=== PATIENT | male | born 1970 | race Caucasian/White ===

== ENCOUNTER 2019-10-19 13:31 | Outpatient (CLI) | payer BC, OTHER, SELFPAY ==
[2019-10-19 14:46] LABS: Alanine Aminotransferase 54 U/L (16-63); Albumin Level 3.4 g/dL (3.4-5.0); Alkaline Phosphatase 99 U/L (46-116); Aspartate Amino Transferase 23 U/L (15-37); Bilirubin,Total 0.3 mg/dL (0.00-1.00); Blood Urea Nitrogen 18 mg/dL (7-18); Calcium 8.7 mg/dL (8.5-10.1); Carbon Dioxide 27 mmol/L (21-32); Chloride 106 mmol/L (98-108); Estimated Glomerular Filt Rate > 60; Glucose 107 mg/dL (70-99); Osmolality Calculated 297 mOsm/kg (285-295); Sodium 143 mmol/L (136-145); Total Protein 6.6 g/dL (6.4-8.2)
== END 2019-10-19 13:32 | disposition home or self-care (01) ==
PROVIDERS: PCP Internal Medicine; Visit Provider Internal Medicine
DX: R94.5 Abnormal results of liver function studies (principal)
CPT/HCPCS: 36415; 80053

== ENCOUNTER 2020-01-26 13:05 | Outpatient (CLI) | payer BC, OTHER, SELFPAY ==
[2020-01-26 13:22] LABS: Basophils Absolute Auto 0.04 K/mm3 (0.00-0.10); Basophils Percent Auto 0.6 % (0.0-1.0); Eosinophils Percent Auto 1.5 % (1.0-6.0); Hematocrit 42.9 % (40.0-54.0); Hemoglobin 14.8 g/dL (14.0-18.0); Immature Granulocyte Absolute 0.02 K/mm3 (0.00-0.00); Immature Granulocyte Percent A 0.3 % (0.0-0.0); Lymphocytes Absolute Auto 1.73 K/mm3 (1.10-4.50); Lymphocytes Percent Auto 25.3 % (18.0-42.0); Mean Corpuscular HGB Conc 34.5 g/dL (32.0-36.0); Mean Corpuscular Hemoglobin 29.6 pg (27.0-31.0); Mean Corpuscular Volume 85.8 fL (78.0-102.0); Mean Platelet Volume 9.4 fl (8.7-11.0); Monocytes Absolute Auto 0.44 K/mm3 (0.10-0.90); Monocytes Percent Auto 6.4 % (2.0-11.0); Neutrophils Absolute Auto 4.5 K/mm3 (1.7-7.2); Neutrophils Percent Auto 65.9 % (50.0-70.0); Platelet Count Result 301 K/mm3 (150-420); Red Cell Distribution Width 13.4 % (11.6-14.4); White Blood Count 6.8 K/mm3 (4.8-10.8)
[2020-01-26 14:15] LABS: Alanine Aminotransferase 70 U/L (16-63); Albumin Level 3.5 g/dL (3.4-5.0); Alkaline Phosphatase 87 U/L (46-116); Anion Gap 11.7 mmol/L (7-16); Aspartate Amino Transferase 32 U/L (15-37); Bilirubin,Total 0.4 mg/dL (0.00-1.00); Blood Urea Nitrogen 18 mg/dL (7-18); CRP < 0.2 mg/dL (0.0-0.9); Carbon Dioxide 29 mmol/L (21-32); Chloride 103 mmol/L (98-108); Estimated Glomerular Filt Rate > 60; Glucose 138 mg/dL (70-99); Osmolality Calculated 293 mOsm/kg (285-295); Potassium 3.7 mmol/L (3.5-5.1); Sodium 140 mmol/L (136-145); Total Protein 6.6 g/dL (6.4-8.2)
== END 2020-01-26 13:06 | disposition home or self-care (01) ==
PROVIDERS: PCP Internal Medicine
DX: K50.819 Crohn's disease of both small and large intestine with unspecified complications (principal)
CPT/HCPCS: 36415; 80053; 85025; 86140

== ENCOUNTER 2020-03-04 11:28 | Outpatient (CLI) | payer BC, SELFPAY ==
[2020-03-04 15:22] LABS: Alanine Aminotransferase 56 U/L (16-63); Albumin Level 3.5 g/dL (3.4-5.0); Alkaline Phosphatase 85 U/L (46-116); Anion Gap 11.9 mmol/L (7-16); Aspartate Amino Transferase 27 U/L (15-37); Bilirubin Direct 0.1 mg/dL (0-0.2); Bilirubin,Total 0.4 mg/dL (0.00-1.00); Blood Urea Nitrogen 18 mg/dL (7-18); Carbon Dioxide 28 mmol/L (21-32); Chloride 103 mmol/L (98-108); Estimated Glomerular Filt Rate > 60; Glucose 105 mg/dL (70-99); Osmolality Calculated 289 mOsm/kg (285-295); Potassium 3.9 mmol/L (3.5-5.1); Sodium 139 mmol/L (136-145); Total Protein 6.9 g/dL (6.4-8.2); Vitamin B12 1269 pg/mL (193-986)
[2020-03-08 21:30] LABS: NIL 0.01 IU/mL; Quantiferon TB Plus, 1T NEGATIVE (NEGATIVE)
[2020-03-09 03:24] LABS: Hepatitis B Core Ab Total Nonreactive (Nonreactive)
[2020-03-09 04:01] LABS: Hepatitis B Surface Antibody Nonreactive (Nonreactive); Hepatitis B Surface Antigen Nonreactive (Nonreactive)
[2020-03-09 20:27] LABS: Vitamin D 25 Hydroxy 23 ng/mL (30-100)
== END 2020-03-04 11:29 | disposition home or self-care (01) ==
LOC: CHSLAB 11:31
PROVIDERS: PCP Internal Medicine; Visit Provider Internal Medicine Gastroenterology
DX: K50.819 Crohn's disease of both small and large intestine with unspecified complications (principal)
CPT/HCPCS: 36415; 80048; 80076; 82306; 82607; 86480; 86704; 86706

== ENCOUNTER 2020-03-09 12:40 | Outpatient (CLI) | payer BC, OTHER, SELFPAY ==
[2020-03-18 14:28] LABS: Calprotectin, Stool 22 mcg/g
== END 2020-03-09 12:41 | disposition home or self-care (01) ==
LOC: CHSLAB 12:43
PROVIDERS: PCP Internal Medicine; Visit Provider Internal Medicine Gastroenterology
DX: K50.819 Crohn's disease of both small and large intestine with unspecified complications (principal)
CPT/HCPCS: 83993

== ENCOUNTER 2020-03-16 13:57 | Outpatient (CLI) | payer BC, OTHER, SELFPAY ==
[2020-03-16 14:45] LABS: Anion Gap 13.8 mmol/L (7-16); Blood Urea Nitrogen 13 mg/dL (7-18); Calcium 8.5 mg/dL (8.5-10.1); Carbon Dioxide 25 mmol/L (21-32); Chloride 105 mmol/L (98-108); Estimated Glomerular Filt Rate > 60; Glucose 116 mg/dL (70-99); Osmolality Calculated 291 mOsm/kg (285-295); Potassium 3.8 mmol/L (3.5-5.1); Sodium 140 mmol/L (136-145)
== END 2020-03-16 13:58 | disposition home or self-care (01) ==
LOC: CHSLAB 14:00
PROVIDERS: PCP Internal Medicine
DX: N20.0 Calculus of kidney (principal)
CPT/HCPCS: 36415; 80048

== ENCOUNTER 2020-03-31 17:35 | Outpatient (CLI) | payer BC, OTHER, SELFPAY ==
[2020-03-31 18:46] LABS: Alanine Aminotransferase 61 U/L (16-63); Albumin Level 3.6 g/dL (3.4-5.0); Alkaline Phosphatase 97 U/L (46-116); Aspartate Amino Transferase 32 U/L (15-37); Bilirubin Direct 0.1 mg/dL (0-0.2); Bilirubin,Total 0.5 mg/dL (0.00-1.00); Total Protein 6.9 g/dL (6.4-8.2)
== END 2020-03-31 17:36 | disposition home or self-care (01) ==
PROVIDERS: PCP Internal Medicine; Visit Provider Internal Medicine Gastroenterology
DX: K50.813 Crohn's disease of both small and large intestine with fistula (principal); R74.0 Nonspecific elevation of levels of transaminase and lactic acid dehydrogenase [LDH]
CPT/HCPCS: 36415; 80076; 81335

== ENCOUNTER 2020-04-06 11:57 | Outpatient (CLI) | payer BC, OTHER, SELFPAY | END 2020-04-06 11:58 | disposition home or self-care (01) | PROVIDERS: PCP Internal Medicine | DX: N20.0 Calculus of kidney (principal); N13.30 Unspecified hydronephrosis | CPT/HCPCS: 87086 ==

== ENCOUNTER 2020-04-28 10:32 | Outpatient (CLI) | payer BC, OTHER, SELFPAY ==
--- NOTE | ~2020-04-28 | XR_ITS ---
EXAMINATION: XR chest 2V 04/28/2020 10:57 INDICATION: Fever PROCEDURE: 2 view chest COMPARISON: 11/11/2017 FINDINGS: The lungs are clear. The cardiomediastinal silhouette is within normal limits. There are no pleural effusions. There is no pneumothorax suspected. IMPRESSION: 1: NO ACUTE CARDIOPULMONARY DISEASE. Reviewed, dictated and finalized at location A.
== END 2020-04-28 10:33 | disposition home or self-care (01) ==
PROVIDERS: PCP Internal Medicine
DX: R50.9 Fever, unspecified (principal)
CPT/HCPCS: 71046; 87086

== ENCOUNTER 2020-05-06 07:41 | Outpatient (CLI) | payer BC, OTHER, SELFPAY ==
[2020-05-06 07:59] VITALS: BP 128/70; PULSE 72; RESP 14; TEMP 36.6; O2SAT 97
[2020-05-06 08:51] VITALS: BP 119/68; PULSE 88; RESP 14; TEMP 36.6; O2SAT 97
[2020-05-06 09:08] VITALS: BP 118/67; PULSE 80; RESP 14; TEMP 36.6
[2020-05-06 09:26] VITALS: BP 117/68; PULSE 78; RESP 14; O2SAT 97
[2020-05-06 09:58] VITALS: BP 114/69; PULSE 78; RESP 14; TEMP 36.6; O2SAT 99
--- NOTE | 2020-05-06 10:07 | PC.NURSE ---
0800 Patient here for Stelara IV infusion. Patient first time with this medication. Teaching given on drug etc. All concerns answered. Stelara infusion administered (SEE MAR). Tolerated very well. Safe exit of hospital.
== END 2020-05-06 07:42 | disposition home or self-care (01) ==
LOC: CHSTREATRM 07:44
PROVIDERS: PCP Internal Medicine; Visit Provider Internal Medicine Gastroenterology
DX: K50.818 Crohn's disease of both small and large intestine with other complication (principal)
CPT/HCPCS: 96365; 96366; J3358; J7050

== ENCOUNTER 2020-06-29 13:13 | Outpatient (CLI) | payer BC, OTHER, SELFPAY ==
[2020-06-29 13:29] LABS: Basophils Absolute Auto 0.03 K/mm3 (0.00-0.10); Basophils Percent Auto 0.6 % (0.0-1.0); Eosinophils Absolute Auto 0.08 K/mm3 (0.02-0.50); Eosinophils Percent Auto 1.7 % (1.0-6.0); Hematocrit 42.4 % (40.0-54.0); Hemoglobin 13.8 g/dL (14.0-18.0); Immature Granulocyte Absolute 0.01 K/mm3 (0.00-0.00); Immature Granulocyte Percent A 0.2 % (0.0-0.0); Lymphocytes Absolute Auto 1.41 K/mm3 (1.10-4.50); Lymphocytes Percent Auto 29.5 % (18.0-42.0); Mean Corpuscular HGB Conc 32.5 g/dL (32.0-36.0); Mean Corpuscular Hemoglobin 29.1 pg (27.0-31.0); Mean Corpuscular Volume 89.3 fL (78.0-102.0); Mean Platelet Volume 9.3 fl (8.7-11.0); Monocytes Absolute Auto 0.35 K/mm3 (0.10-0.90); Monocytes Percent Auto 7.3 % (2.0-11.0); Neutrophils Absolute Auto 2.9 K/mm3 (1.7-7.2); Neutrophils Percent Auto 60.7 % (50.0-70.0); Platelet Count Result 333 K/mm3 (150-420); Red Blood Count 4.75 M/mm3 (4.70-6.10); Red Cell Distribution Width 14.1 % (11.6-14.4); White Blood Count 4.8 K/mm3 (4.8-10.8)
[2020-06-29 14:04] LABS: Alanine Aminotransferase 74 U/L (16-63); Albumin Level 3.5 g/dL (3.4-5.0); Alkaline Phosphatase 109 U/L (46-116); Anion Gap 8 mmol/L (8-16); Aspartate Amino Transferase 32 U/L (15-37); Bilirubin,Total 0.3 mg/dL (0.00-1.00); Blood Urea Nitrogen 17 mg/dL (7-18); Carbon Dioxide 28 mmol/L (21-32); Chloride 107 mmol/L (98-108); Estimated Glomerular Filt Rate 58; Glucose 92 mg/dL (70-99); Osmolality Calculated 297 mOsm/kg (285-295); Potassium 4.4 mmol/L (3.5-5.1); Sodium 143 mmol/L (136-145); Total Protein 6.6 g/dL (6.4-8.2)
[2020-06-29 14:07] LABS: CRP < 0.2 mg/dL (0.0-0.9)
[2020-07-02 12:57] LABS: Vitamin D 25 Hydroxy 23 ng/mL (30-100)
== END 2020-06-29 13:14 | disposition home or self-care (01) ==
LOC: CHSLAB 13:16
PROVIDERS: PCP Internal Medicine; Visit Provider Internal Medicine Gastroenterology
DX: K50.813 Crohn's disease of both small and large intestine with fistula (principal); Z79.899 Other long term (current) drug therapy
CPT/HCPCS: 36415; 80053; 82306; 85025; 86140

== ENCOUNTER 2020-10-14 11:18 | Outpatient (CLI) | payer BC, OTHER, SELFPAY | END 2020-10-14 11:19 | disposition home or self-care (01) | LOC: CHSLAB 11:21 | PROVIDERS: PCP Internal Medicine; Visit Provider Internal Medicine Gastroenterology | DX: K50.813 Crohn's disease of both small and large intestine with fistula (principal); Z79.899 Other long term (current) drug therapy | CPT/HCPCS: 36415 ==

== ENCOUNTER 2021-04-22 11:11 | Outpatient (CLI) | payer BC, OTHER, SELFPAY ==
[2021-04-22 11:24] LABS: Basophils Absolute Auto 0.04 K/mm3 (0.00-0.10); Basophils Percent Auto 0.8 % (0.0-1.0); Eosinophils Absolute Auto 0.06 K/mm3 (0.02-0.50); Eosinophils Percent Auto 1.2 % (1.0-6.0); Hematocrit 43.2 % (40.0-54.0); Hemoglobin 14.8 g/dL (14.0-18.0); Immature Granulocyte Absolute 0.01 K/mm3 (0.00-0.00); Immature Granulocyte Percent A 0.2 % (0.0-0.0); Lymphocytes Absolute Auto 1.44 K/mm3 (1.10-4.50); Lymphocytes Percent Auto 28.1 % (18.0-42.0); Mean Corpuscular HGB Conc 34.3 g/dL (32.0-36.0); Mean Corpuscular Hemoglobin 30.1 pg (27.0-31.0); Mean Corpuscular Volume 87.8 fL (78.0-102.0); Mean Platelet Volume 9.1 fl (8.7-11.0); Monocytes Absolute Auto 0.41 K/mm3 (0.10-0.90); Neutrophils Absolute Auto 3.2 K/mm3 (1.7-7.2); Neutrophils Percent Auto 61.7 % (50.0-70.0); Platelet Count Result 305 K/mm3 (150-420); Red Blood Count 4.92 M/mm3 (4.70-6.10); Red Cell Distribution Width 13.1 % (11.6-14.4); White Blood Count 5.1 K/mm3 (4.8-10.8)
[2021-04-22 12:04] LABS: Alanine Aminotransferase 61 U/L (16-63); Albumin Level 3.7 g/dL (3.4-5.0); Alkaline Phosphatase 88 U/L (46-116); Anion Gap 10 mmol/L (8-16); Aspartate Amino Transferase 25 U/L (15-37); Bilirubin,Total 0.5 mg/dL (0.00-1.00); Blood Urea Nitrogen 14 mg/dL (7-18); Carbon Dioxide 27 mmol/L (21-32); Chloride 105 mmol/L (98-108); Estimated Glomerular Filt Rate > 60; Glucose 137 mg/dL (70-99); Osmolality Calculated 296 mOsm/kg (285-295); Sodium 142 mmol/L (136-145); Total Protein 6.9 g/dL (6.4-8.2)
[2021-04-22 12:06] LABS: CRP < 0.2 mg/dL (0.0-0.9)
[2021-04-26 21:52] LABS: Vitamin D 25 Hydroxy 35 ng/mL (30-100)
== END 2021-04-22 11:12 | disposition home or self-care (01) ==
LOC: CHSLAB 11:13
PROVIDERS: PCP Internal Medicine; Visit Provider Internal Medicine Gastroenterology
DX: K50.819 Crohn's disease of both small and large intestine with unspecified complications (principal); Z79.899 Other long term (current) drug therapy; E55.9 Vitamin D deficiency, unspecified
CPT/HCPCS: 36415; 80053; 82306; 85025; 86140

== ENCOUNTER 2021-08-05 12:52 | Outpatient (CLI) | payer BC, OTHER, SELFPAY ==
[2021-08-05 13:09] LABS: Basophils Absolute Auto 0.04 K/mm3 (0.00-0.10); Basophils Percent Auto 0.6 % (0.0-1.0); Eosinophils Absolute Auto 0.07 K/mm3 (0.02-0.50); Hematocrit 41.4 % (40.0-54.0); Hemoglobin 14.3 g/dL (14.0-18.0); Immature Granulocyte Absolute 0.01 K/mm3 (0.00-0.00); Immature Granulocyte Percent A 0.1 % (0.0-0.0); Lymphocytes Absolute Auto 1.58 K/mm3 (1.10-4.50); Lymphocytes Percent Auto 22.9 % (18.0-42.0); Mean Corpuscular HGB Conc 34.5 g/dL (32.0-36.0); Mean Platelet Volume 9.3 fl (8.7-11.0); Monocytes Absolute Auto 0.53 K/mm3 (0.10-0.90); Monocytes Percent Auto 7.7 % (2.0-11.0); Neutrophils Absolute Auto 4.7 K/mm3 (1.7-7.2); Neutrophils Percent Auto 67.7 % (50.0-70.0); Platelet Count Result 309 K/mm3 (150-420); Red Blood Count 4.76 M/mm3 (4.70-6.10); Red Cell Distribution Width 12.7 % (11.6-14.4); White Blood Count 6.9 K/mm3 (4.8-10.8)
[2021-08-05 13:50] LABS: Alanine Aminotransferase 56 U/L (16-63); Albumin Level 3.6 g/dL (3.4-5.0); Alkaline Phosphatase 85 U/L (46-116); Anion Gap 9 mmol/L (8-16); Aspartate Amino Transferase 21 U/L (15-37); Bilirubin,Total 0.3 mg/dL (0.00-1.00); Blood Urea Nitrogen 14 mg/dL (7-18); Carbon Dioxide 29 mmol/L (21-32); Chloride 106 mmol/L (98-108); Estimated Glomerular Filt Rate 56; Glucose 97 mg/dL (70-99); Osmolality Calculated 298 mOsm/kg (285-295); Potassium 4.4 mmol/L (3.5-5.1); Sodium 144 mmol/L (136-145); Total Protein 6.6 g/dL (6.4-8.2)
[2021-08-05 14:02] LABS: CRP < 0.5 mg/dL (0.0-0.9)
[2021-08-07 10:52] LABS: Cholesterol 160 mg/dL (0-200); HDL Direct 50 mg/dL (40-60); LDL Cholesterol Calculated 51 mg/dL (<130); Triglycerides 294 mg/dL (0-150)
[2021-08-10 10:52] LABS: Vitamin D 25 Hydroxy 28 ng/mL (30-100)
== END 2021-08-05 12:53 | disposition home or self-care (01) ==
LOC: CHSLAB 12:55
PROVIDERS: PCP Internal Medicine; Visit Provider Internal Medicine Gastroenterology
DX: K50.819 Crohn's disease of both small and large intestine with unspecified complications (principal); Z79.899 Other long term (current) drug therapy; E78.5 Hyperlipidemia, unspecified; E55.9 Vitamin D deficiency, unspecified
CPT/HCPCS: 36415; 80053; 80061; 82306; 85025; 86140

== ENCOUNTER 2021-09-11 16:47 | Outpatient (CLI) | payer OTHER, SELFPAY ==
[2021-09-11 17:25] LABS: SARS-CoV-2 Ag Negative (Negative)
[2021-09-11 17:28] LABS: Influenza Control Valid (Valid)
[2021-09-12 19:08] LABS: SARS-CoV-2 RNA PCR Negative
== END 2021-09-11 16:48 | disposition home or self-care (01) ==
LOC: CHSLAB 16:51
PROVIDERS: PCP Internal Medicine; Visit Provider Internal Medicine
DX: R50.9 Fever, unspecified (principal); Z20.822 Contact with and (suspected) exposure to COVID-19
CPT/HCPCS: 87081; 87426; 87804; 87880; C9803; U0003; U0005

== ENCOUNTER 2021-11-06 13:42 | Outpatient (CLI) | payer OTHER, SELFPAY ==
[2021-11-06 14:03] LABS: Basophils Absolute Auto 0.05 K/mm3 (0.00-0.10); Basophils Percent Auto 0.7 % (0.0-1.0); Eosinophils Absolute Auto 0.04 K/mm3 (0.02-0.50); Eosinophils Percent Auto 0.6 % (1.0-6.0); Hematocrit 42.9 % (40.0-54.0); Hemoglobin 14.5 g/dL (14.0-18.0); Immature Granulocyte Absolute 0.01 K/mm3 (0.00-0.00); Immature Granulocyte Percent A 0.1 % (0.0-0.0); Lymphocytes Percent Auto 28.4 % (18.0-42.0); Mean Corpuscular HGB Conc 33.8 g/dL (32.0-36.0); Mean Corpuscular Hemoglobin 29.7 pg (27.0-31.0); Mean Corpuscular Volume 87.7 fL (78.0-102.0); Mean Platelet Volume 8.9 fl (8.7-11.0); Monocytes Absolute Auto 0.48 K/mm3 (0.10-0.90); Monocytes Percent Auto 7.2 % (2.0-11.0); Neutrophils Absolute Auto 4.2 K/mm3 (1.7-7.2); Platelet Count Result 286 K/mm3 (150-420); Red Blood Count 4.89 M/mm3 (4.70-6.10); Red Cell Distribution Width 12.8 % (11.6-14.4); White Blood Count 6.7 K/mm3 (4.8-10.8)
[2021-11-06 15:45] LABS: Alanine Aminotransferase 95 U/L (16-63); Alkaline Phosphatase 83 U/L (46-116); Anion Gap 11 mmol/L (8-16); Aspartate Amino Transferase 43 U/L (15-37); Bilirubin,Total 0.5 mg/dL (0.00-1.00); Blood Urea Nitrogen 16 mg/dL (7-18); Calcium 8.9 mg/dL (8.5-10.1); Carbon Dioxide 24 mmol/L (21-32); Chloride 100 mmol/L (98-108); Estimated Glomerular Filt Rate > 60; Glucose 88 mg/dL (70-99); Osmolality Calculated 280 mOsm/kg (285-295); Potassium 4.2 mmol/L (3.5-5.1); Sodium 135 mmol/L (136-145)
[2021-11-06 15:47] LABS: CRP < 0.2 mg/dL (0.0-0.9)
== END 2021-11-06 13:43 | disposition home or self-care (01) ==
LOC: CHSLAB 13:46
PROVIDERS: PCP Internal Medicine; Visit Provider Internal Medicine Gastroenterology
DX: K50.812 Crohn's disease of both small and large intestine with intestinal obstruction (principal); K50.819 Crohn's disease of both small and large intestine with unspecified complications; Z79.899 Other long term (current) drug therapy
CPT/HCPCS: 36415; 80053; 80299; 83520; 85025; 86140

== ENCOUNTER 2022-03-26 14:46 | Outpatient (CLI) | payer OTHER, SELFPAY ==
[2022-03-26 15:01] LABS: Basophils Absolute Auto 0.04 K/mm3 (0.00-0.10); Basophils Percent Auto 0.6 % (0.0-1.0); Eosinophils Absolute Auto 0.04 K/mm3 (0.02-0.50); Eosinophils Percent Auto 0.6 % (1.0-6.0); Hematocrit 40.1 % (40.0-54.0); Hemoglobin 13.6 g/dL (14.0-18.0); Immature Granulocyte Absolute 0.02 K/mm3 (0.00-0.00); Immature Granulocyte Percent A 0.3 % (0.0-0.0); Lymphocytes Absolute Auto 1.66 K/mm3 (1.10-4.50); Lymphocytes Percent Auto 23.2 % (18.0-42.0); Mean Corpuscular HGB Conc 33.9 g/dL (32.0-36.0); Mean Corpuscular Hemoglobin 29.9 pg (27.0-31.0); Mean Corpuscular Volume 88.1 fL (78.0-102.0); Mean Platelet Volume 9.3 fl (8.7-11.0); Monocytes Absolute Auto 0.54 K/mm3 (0.10-0.90); Monocytes Percent Auto 7.5 % (2.0-11.0); Neutrophils Absolute Auto 4.9 K/mm3 (1.7-7.2); Neutrophils Percent Auto 67.8 % (50.0-70.0); Platelet Count Result 267 K/mm3 (150-420); Red Blood Count 4.55 M/mm3 (4.70-6.10); Red Cell Distribution Width 12.8 % (11.6-14.4); White Blood Count 7.2 K/mm3 (4.8-10.8)
[2022-03-26 15:18] LABS: Alanine Aminotransferase 45 U/L (16-63); Albumin Level 3.7 g/dL (3.4-5.0); Alkaline Phosphatase 71 U/L (46-116); Anion Gap 11 mmol/L (8-16); Aspartate Amino Transferase 21 U/L (15-37); Bilirubin,Total 0.5 mg/dL (0.00-1.00); Blood Urea Nitrogen 12 mg/dL (7-18); Calcium 8.6 mg/dL (8.5-10.1); Carbon Dioxide 25 mmol/L (21-32); Chloride 103 mmol/L (98-108); Estimated Glomerular Filt Rate > 60; Glucose 122 mg/dL (70-99); Osmolality Calculated 288 mOsm/kg (285-295); Potassium 3.6 mmol/L (3.5-5.1); Sodium 139 mmol/L (136-145); Total Protein 6.8 g/dL (6.4-8.2)
[2022-03-26 15:20] LABS: CRP < 0.2 mg/dL (0.0-0.9)
[2022-03-28 15:52] LABS: NIL 0.01 IU/mL; Quantiferon TB Plus, 1T NEGATIVE (NEGATIVE)
== END 2022-03-26 14:47 | disposition home or self-care (01) ==
LOC: CHSLAB 14:49
PROVIDERS: PCP Internal Medicine; Visit Provider Internal Medicine Gastroenterology
DX: K50.813 Crohn's disease of both small and large intestine with fistula (principal); Z79.899 Other long term (current) drug therapy
CPT/HCPCS: 36415; 80053; 85025; 86140; 86480

== ENCOUNTER 2022-08-10 10:37 | Emergency (ER) | payer OTHER, SELFPAY ==
--- NOTE | ~2022-08-10 | XR_ITS ---
Lumbosacral Spine: AP and lateral views Clinical History: Pain Findings: The normal lordotic curve is maintained. The vertebral bodies and posterior elements are i ntact. The intervertebral disc spaces are preserved. There are mild facet joint degenerative changes at L4-L5 and L5-S1. The sacroiliac joints are normally outlined. Left renal stones are present. Impression: Facet joint degenerative changes, as above. Left nephrolithiasis. Reviewed, dictated and finalized at location M. OR PHP DEVELOPER Impression: Facet joint degenerative changes, as above. Left nephrolithiasis.
[2022-08-10 11:19] VITALS: BP 116/80; PULSE 90; RESP 16; TEMP 36.8; O2SAT 97
[2022-08-10 11:20] VITALS: BP 116/80; PULSE 90; RESP 16; TEMP 36.8; O2SAT 97
--- NOTE | 2022-08-10 11:20 | ED.BACK ---
HPI - Back Pain/Injury General Chief Complaint: Back Pain/Injury Stated Complaint: fall, back pain Time Seen by Provider: 08/10/22 11:20 Source: patient, family, RN notes reviewed and old records reviewed Mode of arrival: ambulatory Limitations: no limitations History of Present Illness HPI Narrative: 52 year old [facility] accompanied by spouse with complaints of pain to his right mid back after fall. Patient reports that he was getting out of truck and running board had ice on it and he slipped out of truck landing on ground and hit his right back region on running board when he fell. Patient has purple abrasions noted on his mid right back region. Patient reports severe muscle spasms when he moves or takes a deep breath. Patient denies any radiation of pain to his legs, no bowel or bladder dysfunction, denies any shortness of breath. Patient repots that he has taken Tylenol and Ibuprofen. MD elicited complaint: back injury and fall Onset (ago): day(s) (1) Pain scale (0-10): 10 Related Data Home Medications Medication Instructions Recorded Confirmed colestipol 1 gram tablet 1 g PO DAILY 08/10/22 08/10/22 losartan 100 mg tablet 100 mg PO DAILY 08/10/22 08/10/22 losartan 100 1 tablet PO DAILY 08/10/22 08/10/22 mg-hydrochlorothiazide 25 mg tablet tamsulosin 0.4 mg capsule 0.4 mg PO DAILY 08/10/22 08/10/22 trazodone 50 mg tablet 50 mg PO DAILY 08/10/22 08/10/22 ustekinumab 90 mg/mL subcutaneous 90 mg subcut DIRECTED 08/10/22 08/10/22 syringe (Stelara) Allergies Allergy/AdvReac Type Severity Reaction Status Date / Time iodine Allergy Unknown IV Verified 08/10/22 11:12 CONTRAST DYE Review of Systems Review of Systems: CONSTITUTIONAL: Denies fever, chills, or sweats. CARDIOVASCULAR: Denies chest pain, palpitations, or edema. RESPIRATORY: Denies cough or dyspnea. GASTROINTESTINAL: Denies abdominal pain, nausea, vomiting, or diarrhea. GENITOURINARY: Denies dysuria or hematuria. SKIN: Denies rash or itching. MUSCULOSKELETAL: Reports right mid back pain from fall. Joint pain or myalgia. NEUROLOGIC: Denies headache, numbness, or weakness. All systems reviewed & are unremarkable except as noted in HPI and below PMFSH Past Medical History Medical History (Updated 08/11/22 @ 08:36 by Laurie Sanchez NP) Arthritis Crohn's disease of both small and large intestine with unspecified complications Kidney stones Surgical History Surgical History (Updated 08/11/22 @ 08:36 by Laurie Sanchez NP) H/O cervical spine surgery x2 History of appendectomy History of bowel resection Social History Social History (Updated 08/11/22 @ 08:34 by Laurie Sanchez NP) Smoking status: Never smoker Comments At time of signature, agree with nursing past medical, surgical, social and family history. There is no relevant family history pertinent to the presenting complaint Exam Narrative: GENERAL: Well-appearing, well-nourished, and in no acute distress. HEAD: Normocephalic, atraumatic. EYES: PERRLA and EOMI. NECK: Supple. No lymphadenopathy. CHEST: Clear to auscultation. No respiratory distress. HEART: Regular rate and rhythm. Distal pulses palpable and equal, cap refill <3 seconds ABDOMEN: Soft, nontender, nondistended, normal active bowel sounds, no palpable or pulsatile masses. No CVA tenderness MUSCULOSKELETAL: Normal range of motion and strength in all extremities; 5/5 strength with hip flexion and extension, dorsiflexion and extension, knee flexion and extension, plantar flexion and extension. Normal sensation in dermatomal distributions with sensitivity to light touch and pain. No midline back tenderness to palpation. No paraspinal tenderness. Transfers from lying to sitting to standing.no radiation of pain to legs, severe back muscle spasms. SKIN: Warm, dry, no rash. ecchymosis with abrasions to right back region,no erythema, open wounds to back. NEURO: No focal defic
== END 2022-08-10 12:07 | disposition home or self-care (01) ==
PROVIDERS: Emergency Provider Registered Nurse; PCP Internal Medicine
DX: M62.830 Muscle spasm of back (principal); S20.221A Contusion of right back wall of thorax, initial encounter; V58.4XXA Person boarding or alighting a pick-up truck or van injured in noncollision transport accident, initial encounter; M19.90 Unspecified osteoarthritis, unspecified site; K50.90 Crohn's disease, unspecified, without complications; K50.80 Crohn's disease of both small and large intestine without complications
CPT/HCPCS: 72100; 99213; G0463

== ENCOUNTER 2022-09-18 07:54 | Outpatient (CLI) | payer OTHER, SELFPAY ==
[2022-09-18 08:07] LABS: Basophils Absolute Auto 0.03 K/mm3 (0.00-0.10); Basophils Percent Auto 0.5 % (0.0-1.0); Eosinophils Absolute Auto 0.09 K/mm3 (0.02-0.50); Eosinophils Percent Auto 1.5 % (1.0-6.0); Hematocrit 42.1 % (40.0-54.0); Hemoglobin 14.3 g/dL (14.0-18.0); Immature Granulocyte Absolute 0.02 K/mm3 (0.00-0.00); Immature Granulocyte Percent A 0.3 % (0.0-0.0); Lymphocytes Absolute Auto 1.71 K/mm3 (1.10-4.50); Lymphocytes Percent Auto 28.9 % (18.0-42.0); Mean Corpuscular Hemoglobin 30.5 pg (27.0-31.0); Mean Corpuscular Volume 89.8 fL (78.0-102.0); Monocytes Percent Auto 6.8 % (2.0-11.0); Neutrophils Absolute Auto 3.7 K/mm3 (1.7-7.2); Platelet Count Result 271 K/mm3 (150-420); Red Blood Count 4.69 M/mm3 (4.70-6.10); Red Cell Distribution Width 13.2 % (11.6-14.4); White Blood Count 5.9 K/mm3 (4.8-10.8)
[2022-09-18 08:51] LABS: Alanine Aminotransferase 61 U/L (16-63); Albumin Level 3.4 g/dL (3.4-5.0); Alkaline Phosphatase 99 U/L (46-116); Anion Gap 9 mmol/L (8-16); Aspartate Amino Transferase 28 U/L (15-37); Bilirubin,Total 0.2 mg/dL (0.00-1.00); Blood Urea Nitrogen 22 mg/dL (7-18); CRP < 0.5 mg/dL (0.0-0.9); Calcium 8.7 mg/dL (8.5-10.1); Carbon Dioxide 29 mmol/L (21-32); Chloride 103 mmol/L (98-108); Estimated Glomerular Filt Rate 60; Glucose 156 mg/dL (70-99); Osmolality Calculated 298 mOsm/kg (285-295); Potassium 3.9 mmol/L (3.5-5.1); Sodium 141 mmol/L (136-145); Total Protein 6.6 g/dL (6.4-8.2)
[2022-09-20 11:00] LABS: Hemoglobin A1C 5.8 % (<5.7)
== END 2022-09-18 07:55 | disposition home or self-care (01) ==
LOC: CHSLAB 07:58
PROVIDERS: PCP Internal Medicine; Visit Provider Internal Medicine Gastroenterology
DX: I10 Essential (primary) hypertension (principal); K50.813 Crohn's disease of both small and large intestine with fistula; Z79.899 Other long term (current) drug therapy
CPT/HCPCS: 36415; 80053; 83036; 85025; 86140

== ENCOUNTER 2023-01-28 08:31 | Outpatient (CLI) | payer OTHER, SELFPAY ==
[2023-01-28 08:45] LABS: Basophils Absolute Auto 0.04 K/mm3 (0.00-0.10); Basophils Percent Auto 0.7 % (0.0-1.0); Eosinophils Absolute Auto 0.07 K/mm3 (0.02-0.50); Eosinophils Percent Auto 1.3 % (1.0-6.0); Hematocrit 42.3 % (40.0-54.0); Hemoglobin 14.4 g/dL (14.0-18.0); Immature Granulocyte Absolute 0.01 K/mm3 (0.00-0.00); Immature Granulocyte Percent A 0.2 % (0.0-0.0); Lymphocytes Absolute Auto 1.46 K/mm3 (1.10-4.50); Lymphocytes Percent Auto 27.3 % (18.0-42.0); Mean Corpuscular Hemoglobin 30.1 pg (27.0-31.0); Mean Corpuscular Volume 88.3 fL (78.0-102.0); Monocytes Absolute Auto 0.39 K/mm3 (0.10-0.90); Monocytes Percent Auto 7.3 % (2.0-11.0); Neutrophils Absolute Auto 3.4 K/mm3 (1.7-7.2); Neutrophils Percent Auto 63.2 % (50.0-70.0); Platelet Count Result 234 K/mm3 (150-420); Red Blood Count 4.79 M/mm3 (4.70-6.10); Red Cell Distribution Width 13.1 % (11.6-14.4); White Blood Count 5.3 K/mm3 (4.8-10.8)
[2023-01-28 08:47] LABS: Appearance Urine Clear (Clear); Bilirubin Urine Negative (Negative); Blood Urine Negative (Negative); Color Urine Light Yellow (Yellow); Glucose Urine UA Negative (Negative); Ketones Urine Negative (Negative); Leukocyte Esterase Ur Negative LEU/UL (Negative); Nitrate Urine Negative (Negative); Protein Urine Negative (Negative); Specific Grav Ur >= 1.030 (1.010-1.020); Urobilinogen Urine 0.2 mg/dL (0.2-1.0)
[2023-01-28 08:51] LABS: Add Urine Microscopic? NO
[2023-01-28 10:28] LABS: Alanine Aminotransferase 69 U/L (16-63); Albumin Level 3.5 g/dL (3.4-5.0); Alkaline Phosphatase 78 U/L (46-116); Anion Gap 9 mmol/L (8-16); Aspartate Amino Transferase 30 U/L (15-37); Bilirubin,Total 0.4 mg/dL (0.00-1.00); Blood Urea Nitrogen 26 mg/dL (7-18); Calcium 8.8 mg/dL (8.5-10.1); Carbon Dioxide 27 mmol/L (21-32); Chloride 102 mmol/L (98-108); Cholesterol 157 mg/dL (0-200); Estimated Glomerular Filt Rate > 60; Ferritin 310 ng/mL (26-388); Glucose 120 mg/dL (70-99); HDL Direct 44 mg/dL (40-60); Iron 72 ug/dL (65-175); LDL Cholesterol Calculated 60 mg/dL (<130); Osmolality Calculated 291 mOsm/kg (285-295); Potassium 3.7 mmol/L (3.5-5.1); Sodium 138 mmol/L (136-145); Thyroid Stimulating Hormone 1.68 uIU/mL (0.36-3.74); Total Protein 6.5 g/dL (6.4-8.2); Triglycerides 264 mg/dL (0-150); Vitamin B12 1651 pg/mL (193-986)
[2023-01-29 11:34] LABS: Hemoglobin A1C 5.6 % (<5.7)
== END 2023-01-28 08:32 | disposition home or self-care (01) ==
LOC: CHSLAB 08:35
PROVIDERS: PCP Internal Medicine; Visit Provider Internal Medicine
DX: N39.0 Urinary tract infection, site not specified (principal); D50.9 Iron deficiency anemia, unspecified; E78.5 Hyperlipidemia, unspecified; R53.83 Other fatigue; R73.01 Impaired fasting glucose
CPT/HCPCS: 36415; 80053; 80061; 81003; 82607; 82728; 83036; 83540; 84443; 84481; 85025

== ENCOUNTER 2023-04-16 10:52 | Outpatient (CLI) | payer OTHER, SELFPAY ==
[2023-04-16 11:10] LABS: Basophils Absolute Auto 0.05 K/mm3 (0.00-0.10); Basophils Percent Auto 0.8 % (0.0-1.0); Eosinophils Absolute Auto 0.06 K/mm3 (0.02-0.50); Hematocrit 43.2 % (40.0-54.0); Hemoglobin 14.8 g/dL (14.0-18.0); Immature Granulocyte Absolute 0.01 K/mm3 (0.00-0.00); Immature Granulocyte Percent A 0.2 % (0.0-0.0); Lymphocytes Absolute Auto 1.65 K/mm3 (1.10-4.50); Lymphocytes Percent Auto 27.3 % (18.0-42.0); Mean Corpuscular HGB Conc 34.3 g/dL (32.0-36.0); Mean Corpuscular Hemoglobin 30.5 pg (27.0-31.0); Mean Corpuscular Volume 88.9 fL (78.0-102.0); Mean Platelet Volume 9.2 fl (8.7-11.0); Monocytes Percent Auto 6.6 % (2.0-11.0); Neutrophils Absolute Auto 3.9 K/mm3 (1.7-7.2); Neutrophils Percent Auto 64.1 % (50.0-70.0); Platelet Count Result 270 K/mm3 (150-420); Red Blood Count 4.86 M/mm3 (4.70-6.10)
[2023-04-16 12:07] LABS: Alanine Aminotransferase 44 U/L (16-63); Albumin Level 3.6 g/dL (3.4-5.0); Alkaline Phosphatase 85 U/L (46-116); Anion Gap 10 mmol/L (8-16); Aspartate Amino Transferase 21 U/L (15-37); Bilirubin,Total 0.4 mg/dL (0.00-1.00); Blood Urea Nitrogen 23 mg/dL (7-18); Carbon Dioxide 27 mmol/L (21-32); Chloride 102 mmol/L (98-108); Estimated Glomerular Filt Rate > 60; Glucose 128 mg/dL (70-99); Osmolality Calculated 293 mOsm/kg (285-295); Potassium 3.8 mmol/L (3.5-5.1); Sodium 139 mmol/L (136-145); Total Protein 6.8 g/dL (6.4-8.2)
[2023-04-16 12:15] LABS: CRP < 0.5 mg/dL (0.0-0.9)
[2023-04-18 12:09] LABS: NIL 0.01 IU/mL; Quantiferon TB Plus, 1T NEGATIVE (NEGATIVE); TB2-NIL 0.01 IU/mL
== END 2023-04-16 10:53 | disposition home or self-care (01) ==
LOC: CHSLAB 10:57
PROVIDERS: PCP Internal Medicine; Visit Provider Internal Medicine Gastroenterology
DX: K50.813 Crohn's disease of both small and large intestine with fistula (principal); Z79.899 Other long term (current) drug therapy
CPT/HCPCS: 36415; 80053; 85025; 86140; 86480

== ENCOUNTER 2023-09-07 08:42 | Outpatient (CLI) | payer OTHER, SELFPAY ==
[2023-09-07 09:17] LABS: Basophils Absolute Auto 0.04 K/mm3 (0.00-0.10); Basophils Percent Auto 0.7 % (0.0-1.0); Eosinophils Absolute Auto 0.08 K/mm3 (0.02-0.50); Eosinophils Percent Auto 1.4 % (1.0-6.0); Hematocrit 42.5 % (40.0-54.0); Hemoglobin 14.5 g/dL (14.0-18.0); Immature Granulocyte Absolute 0.01 K/mm3 (0.00-0.00); Immature Granulocyte Percent A 0.2 % (0.0-0.0); Lymphocytes Percent Auto 24.7 % (18.0-42.0); Mean Corpuscular HGB Conc 34.1 g/dL (32.0-36.0); Mean Corpuscular Hemoglobin 29.7 pg (27.0-31.0); Mean Corpuscular Volume 86.9 fL (78.0-102.0); Mean Platelet Volume 9.5 fl (8.7-11.0); Monocytes Absolute Auto 0.45 K/mm3 (0.10-0.90); Monocytes Percent Auto 7.9 % (2.0-11.0); Neutrophils Absolute Auto 3.7 K/mm3 (1.7-7.2); Neutrophils Percent Auto 65.1 % (50.0-70.0); Platelet Count Result 268 K/mm3 (150-420); Red Blood Count 4.89 M/mm3 (4.70-6.10); White Blood Count 5.7 K/mm3 (4.8-10.8)
[2023-09-07 09:18] LABS: Appearance Urine Clear (Clear); Bilirubin Urine Negative (Negative); Blood Urine Negative (Negative); Color Urine Yellow (Yellow); Glucose Urine UA Negative (Negative); Ketones Urine Negative (Negative); Leukocyte Esterase Ur Trace LEU/UL (Negative); Nitrate Urine Negative (Negative); Protein Urine Negative (Negative); Urobilinogen Urine 0.2 mg/dL (0.2-1.0); pH Urine 6.5 (5.0-8.0)
[2023-09-07 09:24] LABS: Add Urine Microscopic? YES; Bacteria Urine Trace /hpf; Mucus Urine Few /lpf; RBC Urine None seen /hpf (0-2); WBC Urine 0-3 /hpf (0-3)
[2023-09-07 10:13] LABS: Hemoglobin A1C 5.8 % (<5.7)
[2023-09-07 10:22] LABS: Alanine Aminotransferase 93 U/L (16-63); Albumin Level 3.3 g/dL (3.4-5.0); Alkaline Phosphatase 78 U/L (46-116); Anion Gap 8 mmol/L (8-16); Aspartate Amino Transferase 39 U/L (15-37); Bilirubin,Total 0.5 mg/dL (0.00-1.00); Blood Urea Nitrogen 20 mg/dL (7-18); Calcium 8.8 mg/dL (8.5-10.1); Carbon Dioxide 28 mmol/L (21-32); Chloride 103 mmol/L (98-108); Cholesterol 165 mg/dL (0-200); Estimated Glomerular Filt Rate > 60; Ferritin 275 ng/mL (26-388); Free T3 2.71 pg/mL (2.18-3.98); Free T4 Free Thyroxine 1.12 ng/dL (0.76-1.46); Glucose 117 mg/dL (70-99); HDL Direct 48 mg/dL (40-60); Iron 63 ug/dL (65-175); LDL Cholesterol Calculated 83 mg/dL (<130); Osmolality Calculated 291 mOsm/kg (285-295); Potassium 3.9 mmol/L (3.5-5.1); Prostate Specific Antigen 0.6 ng/mL (< OR = 4.0); Sodium 139 mmol/L (136-145); Thyroid Stimulating Hormone 1.36 uIU/mL (0.36-3.74); Total Protein 6.6 g/dL (6.4-8.2); Triglycerides 168 mg/dL (0-150); Vitamin B12 1813 pg/mL (193-986)
[2023-09-11 20:46] LABS: Red Blood Cell Folate 544 ng/mL RBC (>280)
== END 2023-09-07 08:43 | disposition home or self-care (01) ==
PROVIDERS: PCP Internal Medicine; Visit Provider Internal Medicine
DX: E53.8 Deficiency of other specified B group vitamins (principal); I10 Essential (primary) hypertension; R73.01 Impaired fasting glucose; N39.0 Urinary tract infection, site not specified; D50.9 Iron deficiency anemia, unspecified; R53.83 Other fatigue; Z12.5 Encounter for screening for malignant neoplasm of prostate
CPT/HCPCS: 36415; 80053; 80061; 81001; 82607; 82728; 82747; 83036; 83540; 84153; 84439; 84443; 84481; 85025; G0103

== ENCOUNTER 2023-10-07 14:51 | Outpatient (CLI) | payer OTHER, SELFPAY ==
[2023-10-07 15:07] LABS: Basophils Absolute Auto 0.03 K/mm3 (0.00-0.10); Basophils Percent Auto 0.4 % (0.0-1.0); Eosinophils Absolute Auto 0.03 K/mm3 (0.02-0.50); Eosinophils Percent Auto 0.4 % (1.0-6.0); Hematocrit 43.6 % (40.0-54.0); Hemoglobin 15.1 g/dL (14.0-18.0); Immature Granulocyte Absolute 0.02 K/mm3 (0.00-0.00); Immature Granulocyte Percent A 0.3 % (0.0-0.0); Lymphocytes Absolute Auto 1.74 K/mm3 (1.10-4.50); Mean Corpuscular HGB Conc 34.6 g/dL (32.0-36.0); Mean Corpuscular Hemoglobin 29.6 pg (27.0-31.0); Mean Corpuscular Volume 85.5 fL (78.0-102.0); Mean Platelet Volume 9.2 fl (8.7-11.0); Monocytes Absolute Auto 0.46 K/mm3 (0.10-0.90); Monocytes Percent Auto 6.6 % (2.0-11.0); Neutrophils Absolute Auto 4.7 K/mm3 (1.7-7.2); Neutrophils Percent Auto 67.3 % (50.0-70.0); Platelet Count Result 278 K/mm3 (150-420); Red Cell Distribution Width 12.9 % (11.6-14.4)
[2023-10-07 15:40] LABS: Alanine Aminotransferase 80 U/L (16-63); Albumin Level 3.7 g/dL (3.4-5.0); Alkaline Phosphatase 77 U/L (46-116); Anion Gap 11 mmol/L (8-16); Aspartate Amino Transferase 32 U/L (15-37); Bilirubin,Total 0.6 mg/dL (0.00-1.00); Blood Urea Nitrogen 20 mg/dL (7-18); Calcium 9.2 mg/dL (8.5-10.1); Carbon Dioxide 28 mmol/L (21-32); Chloride 100 mmol/L (98-108); Estimated Glomerular Filt Rate > 60; Glucose 111 mg/dL (70-99); Osmolality Calculated 291 mOsm/kg (285-295); Potassium 3.6 mmol/L (3.5-5.1); Sodium 139 mmol/L (136-145); Total Protein 7.1 g/dL (6.4-8.2)
[2023-10-07 15:42] LABS: CRP < 0.5 mg/dL (0.0-0.9)
== END 2023-10-07 14:52 | disposition home or self-care (01) ==
LOC: CHSLAB 14:52
PROVIDERS: PCP Internal Medicine; Visit Provider Internal Medicine Gastroenterology
DX: K50.813 Crohn's disease of both small and large intestine with fistula (principal); Z79.899 Other long term (current) drug therapy
CPT/HCPCS: 36415; 80053; 85025; 86140

== ENCOUNTER 2024-01-29 17:12 | Outpatient (CLI) | payer OTHER, SELFPAY ==
[2024-01-29 17:40] LABS: Basophils Absolute Auto 0.05 K/mm3 (0.00-0.10); Basophils Percent Auto 0.7 % (0.0-1.0); Eosinophils Absolute Auto 0.06 K/mm3 (0.02-0.50); Eosinophils Percent Auto 0.8 % (1.0-6.0); Hematocrit 42.3 % (40.0-54.0); Hemoglobin 14.6 g/dL (14.0-18.0); Immature Granulocyte Absolute 0.02 K/mm3 (0.00-0.00); Immature Granulocyte Percent A 0.3 % (0.0-0.0); Lymphocytes Absolute Auto 1.97 K/mm3 (1.10-4.50); Lymphocytes Percent Auto 25.9 % (18.0-42.0); Mean Corpuscular HGB Conc 34.5 g/dL (32-36); Mean Corpuscular Hemoglobin 30.1 pg (27.0-31.0); Mean Corpuscular Volume 87.2 fL (78.0-102.0); Mean Platelet Volume 9.1 fl (8.7-11.0); Monocytes Absolute Auto 0.63 K/mm3 (0.10-0.90); Monocytes Percent Auto 8.3 % (2.0-11.0); Neutrophils Absolute Auto 4.87 K/mm3 (1.70-7.20); Platelet Count Result 263 K/mm3 (150-420); Red Blood Count 4.85 M/mm3 (4.70-6.10); Red Cell Distribution Width 13.1 % (11.6-14.4); White Blood Count 7.6 K/mm3 (4.8-10.8)
[2024-01-29 18:09] LABS: Alanine Aminotransferase 71 U/L (16-63); Albumin Level 3.6 g/dL (3.4-5.0); Alkaline Phosphatase 75 U/L (46-116); Anion Gap 10 mmol/L (4-12); Aspartate Amino Transferase 31 U/L (15-37); Bilirubin,Total 0.6 mg/dL (0.00-1.00); Blood Urea Nitrogen 25 mg/dL (7-18); Calcium 9.1 mg/dL (8.5-10.1); Carbon Dioxide 28 mmol/L (21-32); Chloride 99 mmol/L (98-108); Estimated Glomerular Filt Rate 56; Glucose 114 mg/dL (70-99); Osmolality Calculated 289 mOsm/kg (285-295); Potassium 3.3 mmol/L (3.5-5.1); Sodium 137 mmol/L (136-145); Total Protein 6.9 g/dL (6.4-8.2)
[2024-01-29 18:20] LABS: CRP < 0.5 mg/dL (0.0-0.9)
== END 2024-01-29 17:13 | disposition home or self-care (01) ==
LOC: CHSLAB 17:16
PROVIDERS: PCP Internal Medicine; Visit Provider Internal Medicine Gastroenterology
DX: K50.818 Crohn's disease of both small and large intestine with other complication (principal); Z79.899 Other long term (current) drug therapy
CPT/HCPCS: 36415; 80053; 85025; 86140

== ENCOUNTER 2024-05-04 14:43 | Outpatient (CLI) | payer OTHER, SELFPAY ==
[2024-05-04 15:20] LABS: Basophils Absolute Auto 0.04 K/mm3 (0.00-0.10); Basophils Percent Auto 0.6 % (0.0-1.0); Eosinophils Absolute Auto 0.07 K/mm3 (0.02-0.50); Eosinophils Percent Auto 1.1 % (1.0-6.0); Hematocrit 41.2 % (40.0-54.0); Hemoglobin 14.4 g/dL (14.0-18.0); Immature Granulocyte Absolute 0.01 K/mm3 (0.00-0.00); Immature Granulocyte Percent A 0.2 % (0.0-0.0); Lymphocytes Absolute Auto 1.83 K/mm3 (1.10-4.50); Lymphocytes Percent Auto 29.4 % (18.0-42.0); Mean Corpuscular Volume 85.8 fL (78.0-102.0); Mean Platelet Volume 9.5 fl (8.7-11.0); Monocytes Absolute Auto 0.48 K/mm3 (0.10-0.90); Monocytes Percent Auto 7.7 % (2.0-11.0); Platelet Count Result 270 K/mm3 (150-420); Red Cell Distribution Width 13.2 % (11.6-14.4); White Blood Count 6.2 K/mm3 (4.8-10.8)
[2024-05-04 15:37] LABS: Add Urine Microscopic? NO; Appearance Urine Clear (Clear); Bilirubin Urine Negative (Negative); Blood Urine Negative (Negative); Color Urine Light Yellow (Yellow); Glucose Urine UA Negative (Negative); Ketones Urine Negative (Negative); Leukocyte Esterase Ur Negative (Negative); Nitrate Urine Negative (Negative); Protein Urine Negative (Negative); Urobilinogen Urine 0.2 mg/dL (0.2-1.0); pH Urine 5.5 (5.0-8.0)
[2024-05-05 14:16] LABS: Hemoglobin A1C 5.7 % (<5.7)
[2024-05-05 15:26] LABS: Alanine Aminotransferase 46 U/L (16-63); Albumin Level 3.6 g/dL (3.4-5.0); Alkaline Phosphatase 87 U/L (46-116); Anion Gap 10 mmol/L (4-12); Aspartate Amino Transferase 20 U/L (15-37); Bilirubin,Total 0.5 mg/dL (0.00-1.00); Blood Urea Nitrogen 19 mg/dL (7-18); Calcium 8.9 mg/dL (8.5-10.1); Carbon Dioxide 27 mmol/L (21-32); Chloride 99 mmol/L (98-108); Cholesterol 171 mg/dL (0-200); Creatine Kinase 52 U/L (39-308); Estimated Glomerular Filt Rate 58; Glucose 104 mg/dL (70-99); HDL Direct 45 mg/dL (40-60); LDL Cholesterol Calculated 35 mg/dL (<130); Osmolality Calculated 284 mOsm/kg (285-295); Potassium 3.5 mmol/L (3.5-5.1); Sodium 136 mmol/L (136-145); Total Protein 6.7 g/dL (6.4-8.2); Triglycerides 457 mg/dL (0-150)
[2024-05-05 15:27] LABS: LDL Cholesterol Direct 71 mg/dL (0-130)
== END 2024-05-04 14:44 | disposition home or self-care (01) ==
PROVIDERS: PCP Internal Medicine; Visit Provider Internal Medicine
DX: R73.01 Impaired fasting glucose (principal); E53.8 Deficiency of other specified B group vitamins; K50.00 Crohn's disease of small intestine without complications; E78.2 Mixed hyperlipidemia
CPT/HCPCS: 36415; 80053; 80061; 81003; 82550; 83036; 83721; 85025

== ENCOUNTER 2024-06-15 15:02 | Outpatient (CLI) | payer OTHER, SELFPAY ==
[2024-06-15 15:15] LABS: Basophils Absolute Auto 0.04 K/mm3 (0.00-0.10); Basophils Percent Auto 0.7 % (0.0-1.0); Eosinophils Absolute Auto 0.05 K/mm3 (0.02-0.50); Eosinophils Percent Auto 0.9 % (1.0-6.0); Hematocrit 40.1 % (40.0-54.0); Hemoglobin 14.1 g/dL (14.0-18.0); Immature Granulocyte Absolute 0.02 K/mm3 (0.00-0.00); Immature Granulocyte Percent A 0.4 % (0.0-0.0); Lymphocytes Percent Auto 29.8 % (18.0-42.0); Mean Corpuscular HGB Conc 35.2 g/dL (32-36); Mean Corpuscular Hemoglobin 30.6 pg (27.0-31.0); Mean Platelet Volume 9.3 fl (8.7-11.0); Monocytes Absolute Auto 0.36 K/mm3 (0.10-0.90); Monocytes Percent Auto 6.3 % (2.0-11.0); Neutrophils Absolute Auto 3.53 K/mm3 (1.70-7.20); Neutrophils Percent Auto 61.9 % (50.0-70.0); Platelet Count Result 266 K/mm3 (150-420); Red Blood Count 4.61 M/mm3 (4.70-6.10); Red Cell Distribution Width 13.2 % (11.6-14.4); White Blood Count 5.7 K/mm3 (4.8-10.8)
[2024-06-15 15:46] LABS: Alanine Aminotransferase 43 U/L (16-63); Albumin Level 3.5 g/dL (3.4-5.0); Alkaline Phosphatase 76 U/L (46-116); Anion Gap 14 mmol/L (4-12); Aspartate Amino Transferase 21 U/L (15-37); Bilirubin,Total 0.4 mg/dL (0.00-1.00); Blood Urea Nitrogen 23 mg/dL (7-18); Calcium 9.3 mg/dL (8.5-10.1); Carbon Dioxide 25 mmol/L (21-32); Chloride 101 mmol/L (98-108); Estimated Glomerular Filt Rate 54; Glucose 140 mg/dL (70-99); Osmolality Calculated 295 mOsm/kg (285-295); Potassium 3.5 mmol/L (3.5-5.1); Sodium 140 mmol/L (136-145); Total Protein 6.6 g/dL (6.4-8.2)
[2024-06-15 15:50] LABS: CRP < 0.5 mg/dL (0.0-0.9)
[2024-06-17 16:34] LABS: NIL 0.01 IU/mL; Quantiferon TB Plus, 1T NEGATIVE (NEGATIVE)
== END 2024-06-15 15:03 | disposition home or self-care (01) ==
LOC: CHSLAB 15:04
PROVIDERS: PCP Internal Medicine; Visit Provider Internal Medicine Gastroenterology
DX: K50.818 Crohn's disease of both small and large intestine with other complication (principal); Z79.899 Other long term (current) drug therapy
CPT/HCPCS: 36415; 80053; 85025; 86140; 86480

== ENCOUNTER 2024-08-16 10:48 | Emergency (ER) | payer OTHER, SELFPAY ==
[2024-08-16] VITALS (23 sets, daily range): BP systolic 107–124; BP diastolic 70–93; PULSE 74–84; RESP 16–30; O2SAT 94–97
--- NOTE | ~2024-08-16 | XR_ITS ---
EXAMINATION: XR chest 2V DATE: 08/16/2024 11:15 INDICATION: Upper left-sided chest pain TECHNIQUE: PA and lateral views of the chest were obtained. COMPARISON: Chest radiograph dated 04/28/2020 FINDINGS: The lungs are clear with no focal airspace opacities, pulmonary edema, pleural effusion or pneumothor ax. The cardiomediastinal silhouette is normal. Plate-screw fixation for lower cervical anterior spin al fusion. IMPRESSION: 1. No acute cardiopulmonary disease. Reviewed, dictated and finalized at location A. ON J[employer] DEVELOPER
--- NOTE | 2024-08-16 10:52 | ECG_ITS ---
Test Date: 2024-08-16 10:55:39 Measurements Intervals [place] Rate: 90 P: 39 UT: 164 QRS: 0 QRSD: 103 T: 56 QT: 359 QTc: 441 Interpretive Statements SINUS RHYTHM NONSPECIFIC T-WAVE ABNORMALITY ABNORMAL ECG No previous ECG available for comparison Electronically Signed On 08-16-2024 13:49:12 ASSISTANT SPA MANAGER by Luisito Wilkins M.D.
[2024-08-16 11:13] LABS: Basophils Percent Auto 0.5 % (0.2-1.2); Eosinophils Absolute Auto 0.1 K/mm3 (0-0.3); Eosinophils Percent Auto 0.9 % (0-4.4); Hematocrit 39.9 % (42.0-52.0); Hemoglobin 13.9 g/dL (14.0-18.0); Immature Granulocyte Absolute 0.02 K/mm3 (0.00-0.031); Immature Granulocyte Percent A 0.3 % (0-0.5); Lymphocytes Absolute Auto 1.44 K/mm3 (0.9-3.2); Lymphocytes Percent Auto 19.3 % (18.3-44.2); Mean Corpuscular HGB Conc 34.8 g/dl (32-36); Mean Corpuscular Hemoglobin 30.3 pg (26-34); Mean Corpuscular Volume 86.9 fl (80-100); Mean Platelet Volume 9.5 fl (7.4-10.4); Monocytes Absolute Auto 0.6 K/mm3 (0.1-0.6); Monocytes Percent Auto 7.6 % (2.6-8.5); Neutrophils Absolute Auto 5.3 K/mm3 (1.3-6.7); Neutrophils Percent Auto 71.4 % (45.5-73.1); Platelet Count Result 263 k/mm3 (150-375); Red Blood Count 4.59 M/mm3 (4.6-6.20); Red Cell Distribution Width 13.4 % (11.5-14.5); White Blood Count 7.5 K/mm3 (4.5-10.0)
[2024-08-16 11:18] LABS: Alanine Aminotransferase 31 U/L (6-50); Alkaline Phosphatase 71 U/L (38-126); Anion Gap 3 mmol/L (4-12); Aspartate Amino Transferase 23 U/L (17-59); Bilirubin,Total 0.5 mg/dL (0.2-1.3); Blood Urea Nitrogen 19 mg/dL (9-20); Calcium 9.2 mg/dL (8.4-10.2); Carbon Dioxide 27 mmol/L (22-30); Chloride 107 mmol/L (98-107); Estimated Glomerular Filt Rate > 60; Glucose 143 mg/dL (65-110); Lipase 74 U/L (23-300); Potassium 3.4 mmol/L (3.4-5.0); Sodium 137 mmol/L (137-145)
[2024-08-16] MEDS: ASPIRIN 81 MG CHEWABLE TABLET 324 MG PO (11:24)
[2024-08-16 11:29] LABS: Troponin I < 0.012 ng/mL (0.000-0.034)
--- NOTE | 2024-08-16 11:30 | ED_ITS ---
HPI - Chest Pain General Chief Complaint: Chest Pain Stated Complaint: L. sided chest pain x1 day Time Seen by Provider: 08/16/24 10:59 Source: patient, family and RN notes reviewed Mode of arrival: ambulatory Limitations: no limitations History of Present Illness HPI narrative: This is a 54 year old male who presents for evaluation of left chest pain. He states that he developed left upper chest pain last night and he also feels it is his left lower chest. He also has sharp pain with inspiration. He took ibuprofen and tums without relief. He denies pain radiating to his back, arm or neck. He denies cough, fever, nausea, vomiting or shortness of breath Risk Factors Coronary artery disease risk factors: hypertension Thoracic aortic dissection risk factors: longstanding hypertension Related Data Home Medications ?Medication ?Instructions ?Recorded ?Confirmed ?Last Taken ?Type colestipol 1 gram tablet 1 g PO DAILY 08/10/22 08/10/22 Unknown History losartan 100 mg tablet 100 mg PO DAILY 08/10/22 08/10/22 Unknown History losartan 100 1 tablet PO DAILY 08/10/22 08/10/22 Unknown History mg-hydrochlorothiazide 25 mg tablet tamsulosin 0.4 mg capsule 0.4 mg PO DAILY 08/10/22 08/10/22 Unknown History trazodone 50 mg tablet 50 mg PO DAILY 08/10/22 08/10/22 Unknown History ustekinumab 90 mg/mL subcutaneous 90 mg subcut DIRECTED 08/10/22 08/10/22 Unknown History syringe (Stelara) Allergies Allergy/AdvReac Type Severity Reaction Status Date / Time iodine Allergy Unknown IV Verified 08/16/24 10:49 CONTRAST DYE Review of Systems 2 Constitutional: Constitutional: Denies chills, Denies fatigue and Denies fever(s) Cardiovascular: Cardiovascular: Reports chest pain, Denies rapid heart rate and Denies radiating jaw, neck or arm pain Respiratory: Respiratory: Denies cough and Denies dyspnea PMFSH Past Medical History Medical History Arthritis Kidney stones Crohn's disease of both small and large intestine with unspecified complications Surgical History Surgical History H/O cervical spine surgery x2 History of appendectomy History of bowel resection Social History Social History Smoking status: Never smoker Exam 2 Const: General: no acute distress Nutritional Appearance: well nourished Orientation/consciousness: patient oriented x3 HENMT: Head: normal to inspection Eyes: EOM: EOMs intact bilaterally Resp: Effort & Inspection: normal respiratory effort Auscultation: clear to auscultation bilaterally Cardio: Rate: regular rate Rhythm: regular rhythm Heart sounds: no murmurs GI: GI Palp: Yes Soft to palpation, No Tenderness to palpation present (GI), No Guarding due to palpation present (GI) and No Rigid due to palpation A uscultation: normal bowel sounds Skin: General skin exam: normal color Neuro: General: patient oriented x3 and moves all extremities Cranial nerves: Yes Nystagmus not present Extrem: General: normal to inspection Psych: Mental Status: mental status grossly normal Affect: normal affect Attitude: cooperative Course Reevaluation(s) Reevaluation #1: I discussed with patient that troponin negative x 2. He also has negative d dimer and he is low risk PE and ACS. I discussed follow up with PCP as outpatient regarding further evaluation. Heart score is low risk so he is stable for outpatient evaluation. Date: 08/16/24 Time: 14:49 Vital Signs Vital signs: Vital Signs Pulse Rate 84 08/16/24 11:05 Respiratory Rate 30 H 08/16/24 11:05 Pulse Oximetry 97 08/16/24 11:05 Pulse Rate 81 08/16/24 15:21 Respiratory Rate 17 08/16/24 15:21 Blood Pressure 124/93 H 08/16/24 15:21 Pulse Oximetry 97 08/16/24 15:21 Oxygen Delivery Room Air 08/16/24 11:08 MDM - Chest Pain Differential Diagnosis Differential diagnosis: Likely pneumothorax, atypical chest pain, costochondritis, chest pain and other (PA, pulmonary emboli) Medical Records Data Attestation: I reviewed the patient's medical records. Lab Data Attestation: I reviewed the patient's lab results. 08/16/24 10:59 08/16/24 10:59 Labs: Lab Results 08/16/24 08/16/24 Range/Units 10:59 14:10 WBC 7.5 (4.5-10.0) K/mm3 RBC 4.59 L (4.6-6.20) M/mm3 Hgb 13.9 L (14.0-18.0) g/dL Hct 39.9 L (42.0-52.0) % MCV 86.9 (80-100) fl MCH 30.3 (26-34) pg MCHC 34.8 (32-36) g/dl RDW 13.4 (11.5-14.5) % Plt Count 263 (150-375) k/mm3 MPV 9.5 (7.4-10.4) fl Immature Gran % (Auto) 0.3 (0-0.5) % Neut % (Auto) 71.4 (45.5-73.1) % Lymph % (Auto) 19.3 (18.3-44.2) % [place] % (Auto) 7.6 (2.6-8.5) % Eos % (Auto) 0.9 (0-4.4) % Baso % (Auto) 0.5 (0.2-1.2) % Lymph # (Auto) 1.44 (0.9-3.2) K/mm3 [place] # (Auto) 0.6 (0.1-0.6) K/mm3 Eos # (Auto) 0.1 (0-0.3) K/mm3 Baso # (Auto) 0.0 (0.0-0.1) K/mm3 Abs Immat Gran (auto) 0.02 (0.00-0.031) K/mm3 Absolute Neuts (auto) 5.3 (1.3-6.7) K/mm3 Absolute Nucleated RBC 0.000 (0.0-0.012) K/mm3 Nucleated RBC % 0.0 (0.0-0.2) % PT 13.1 (11.1-14.7) Seconds INR 1.0 APTT 26.3 (22.3-36.8) Seconds D-Dimer 0.26 (<0.48) ug/mL Sodium 137 (137-145) mmol/L Potassium 3.4 (3.4-5.0) mmol/L Chloride 107 (98-107) mmol/L Carbon Dioxide 27 (22-30) mmol/L Anion Gap 3 L (4-12) mmol/L BUN 19 (9-20) mg/dL Creatinine 1.20 (0.7-1.3) mg/dL Estim Creat Clear Calc Not Reportable Estimated GFR > 60 (59 - ) Glucose 143 H (65-110) mg/dL Calcium 9.2 (8.4-10.2) mg/dL Total Bilirubin 0.5 (0.2-1.3) mg/dL AST 23 (17-59) U/L ALT 31 (6-50) U/L Alkaline Phosphatase 71 (38-126) U/L Troponin I < 0.012 < 0.012 (0.000-0.034) ng/mL Total Protein 7.0 (6.3-8.2) g/dL Albumin 4.0 (3.5-5.1) g/dL Lipase 74 (23-300) U/L Imaging Data Radiologist's impression: ITS Impressions Chest X-Ray 08/16/24 11:21 IMPRESSION: 1. No acute cardiopulmonary disease. ECG Data EKG #1: Attestation: I personally reviewed and interpreted this ECG as follows: ECG completion date: 08/16/24 ECG completion time: 10:55 EKG Interpretation: normal rate, sinus rhythm, no ST changes and NL axis Discharge Plan Discharge Clinical Impression: Atypical chest pain Patient Disposition: Home, Self-Care Condition: Stable Instructions: Antibiotic Form, Chest Pain (ED) Additional Instructions: Today your evaluation was negative for any significant abnormalities. I recommend that you call your primary care provider tomorrow to arrange for continued follow up regarding your chest pain. They can determine if you need cardiac evaluation as outpatient. If your symptoms worsen, do not hesitate to return to ER. Take tylenol or ibuprofen for your pain. Patient Language: Bengali Prescriptions: No Action trazodone 50 mg tablet 50 mg PO DAILY losartan-hydrochlorothiazide 100-25 mg tablet 1 tablet PO DAILY tamsulosin 0.4 mg capsule 0.4 mg PO DAILY losartan 100 mg tablet 100 mg PO DAILY colestipol 1 gram tablet 1 g PO DAILY Stelara 90 mg/mL syringe 90 mg SUBCUT DIRECTED cyclobenzaprine 10 mg tablet 10 mg PO TID PRN (Reason: muscle spasm) Qty: 20 0RF Rx Instructions: do not drive while taking or operate any machinery perform anything that requires mental alertness ondansetron 4 mg tablet,disintegrating 4 mg PO Q6H PRN (Reason: nausea and vomiting) Qty: 20 0RF Follow-up/Referrals: Jayla Phoenix MD [Primary Care Provider] -
[2024-08-16 11:32] LABS: Partial Thromboplastin Time 26.3 Seconds (22.3-36.8); Prothrombin Time 13.1 Seconds (11.1-14.7)
[2024-08-16 11:46] LABS: D Dimer 0.26 ug/mL (<0.48)
[2024-08-16] MEDS: ONDANSETRON INJ 4 MG/2 ML VIAL IV PUSH (12:00)
[2024-08-16] MEDS: MORPHINE SULFATE (*CRX) 2 MG/ML INJ IV PUSH (12:00)
--- NOTE | 2024-08-16 13:58 | ECG_ITS ---
Test Date: 2024-08-16 14:14:55 Measurements Intervals [place] Rate: 77 P: 29 MD: 158 QRS: -11 QRSD: 104 T: 40 QT: 381 QTc: 433 Interpretive Statements SINUS RHYTHM NONSPECIFIC T-WAVE ABNORMALITY Compared to ECG 08/16/2024 10:55:39 no changes Electronically Signed On 08-17-2024 18:26:55 DIESEL ELECTRICIAN by Scarlet Lux M.D.
[2024-08-16 14:47] LABS: Troponin I < 0.012 ng/mL (0.000-0.034)
--- OUTSIDE RECORDS SUMMARY | 2024-08-23 08:01 | XMS_ITS | Referral Summary ---
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) 06/16/2024 Documentation [facility] [address] [facility] [place] [address] Judi Sorensen RN Lab Results 06/15/2024 Orders Only [facility] Scanning, Provider 06/09/2024 Orders Only [facility] [facility] [address] [place] [address] [place] [address] Corbin Duque MD High risk medications (not anticoagulants) long-term use (Primary Dx); Crohn's disease of both small and large intestine with other complication (HCC) from Last 3 Months Allergies Active Allergy Reactions Criticality Noted Date Comments Iodinated Contrast Media Rash Medium 01/23/2019 Medications losartan-hydrochl orothiazide (HYZAAR) 100-25 mg per tabletIndications :hypertension Take 1 tablet by mouth nightly 9 Active multivitamin capsuleIndication s:Vitamin Deficiency Prevention Take 1 capsule by mouth drama critic before breakfast Active cyanocobalamin, vitamin B-12, 5,000 mcg tablet, sublingualIndicat ions:Prevention of Vitamin B12 Deficiency [address] 1 tablet under the tongue drama critic before breakfast Active traZODone (DESYREL) 100 mg tablet TAKE 2 TABLETS (100 MG) BY ORAL ROUTE AT BEDTIME 3 Active tamsulosin (FLOMAX) 0.4 mg extended release capsuleIndication s:Nephrolithiasis Take 2 capsules (0.8 mg total) by mouth nightly 180 capsule 3 4 02/28/20 25 Active colestipoL (COLESTID) 1 gram tablet TAKE 2 TABLETS BY MOUTH TWICE A DAY 360 tablet 1 4 Active ustekinumab (Stelara) injectionIndicati ons:Crohn's disease of small and large intestines with complication (HCC) Inject 1 mL (90 mg total) under the skin every 6 (six) weeks Labs due late 08/2024 1 mL 1 4 Active Active Problems Problem Noted Date Diagnosed Date Crohn's disease of small and large intestines with complication 12/21/2020 Overview (12/21/2020): Added automatically from request for surgery [id number] Hyperoxaluria 12/21/2020 Benign prostatic hyperplasia with urinary freque ncy 09/13/2020 High risk medications (not anticoagulants) long- term use 05/18/2020 Assessment & Plan (05/18/2020 10:24 AM CDT): High risk medications: As with all patients taking immunosuppressive biologic therapies or immunomodulators, we provide a balanced discussion on benefits and risks associated with these medications. Regarding potential risks, we employ a strategy of active monitoring for medication related toxicities. Toxicities and risks discussed in monitoring include, but are not limited to the following: infusion reactions including anaphylaxis; bacterial, viral and fungal infections; pancreatitis; heart failure; neurologic reactions; hematologic and solid tumors malignancy including an increased risk of lymphoma and skin cancers; bone marrow toxicity including anemia, lymphopenia and immune suppression; hepatotoxicity and potential renal toxicity. Patients are actively assessed through routine laboratories (Q4 month or more frequently) which I personally review and are encouraged to contact us with any questions regarding new symptom development. Bilateral nephrolithiasis 04/05/2020 Overview (04/05/2020): Added automatically from request for surgery [id number] Crohn's disease of both smal l and large intestine with fistula 03/03/2020 Overview (03/03/2020): Added automatically from request for surgery [id number] Crohn's disease of both smal l and large intestine with other complication 01/22/2020 Overview (10/09/2023): Year of diagnosis: 2000. Year symptoms began: 2000. Phenotype: Penetrating (B3) without perianal disease. Distribution: ileocolonic (L3) without upper GI disease (L4). Extraintestinal manifestations: arthralgias. Complications: hx SBO Kidney stones, hydronephrosis Prior treatments: pentasa. Current treatment: Stelara (started 04/2020) every 8 weeks, level 7.7 09/2020, 11/06/21 3.3 FC 22 02/2020 Prior surgeries: IC resection 2008. Endoscopies: Colon 04/2023 Impression: - A few erosions in the terminal ileum. - Simple Endoscopic Score for Crohn's Disease: 3, mucosal inflammatory changes secondary to Crohn's disease. Biopsied. - Chromoscopy was performed in the entire colon. Diagnosis: A. Terminal ileum, biopsy: - Small intestinal mucosa with focal active ileitis - Foreign material? pill fragment seen impregnated in the small intestinal mucosa - No chronic mucosal changes, granulomas or dysplasia B. Transverse colon, biopsy: - Colonic mucosa, no diagnostic abnormalities are identified - No granulomas or dysplasia C. Sigmoid colon, biopsy: - Colonic mucosa, no diagnostic abnormalities are identified - No granulomas or dysplasia D. Rectum, biopsy: - Rectal mucosa with focal active proctitis - No chronic mucosal changes, granulomas or dysplasia Colon 01/2021 A few erosions in the eliud-terminal ileum. Biopsied. Chromoscopy performed. - The examination was otherwise normal on direct and retroflexion views. Diagnosis: A. Small intestine, terminal ileum, biopsy - Normal small intestinal mucosa B. Small intestine, ileum anastamosis site erosion, biopsy - Enteric mucosa with focal acute enteritis C. Large intestine, transverse colon, biopsy - Normal colonic mucosa D. Large intestine, sigmoid colon, biopsy - Normal colonic mucosa E. Large intestine, rectum, biospy - Normal colonic mucosa Colonoscopy 04/04/2020 A few ulcers in the terminal ileum. Biopsied. - Simple Endoscopic Score for Crohn's Disease: 3, mucosal inflammatory changes secondary to Crohn's disease with ileitis. Biopsied. PATH: A. Small intestine, eliud terminal ileum, biopsy - Small intestinal mucosa with acute ileitis B. Large intestine, transverse, biopsy - Normal colonic mucosa C. Large intestine, sigmoid, biopsy - Normal colonic mucosa D. Large intestine, rectum, biopsy - Normal colonic mucosa Imaging: MRE 12/2021 IMPRESSION: 1. Fibrotic tissue in the region of the previously described enterocolic fistula at the level of the ileocolic anastomosis, without fluid communication. 2. No active inflammation. No new site of disease. 3. Left lower pole caliceal dilation is stable from 09/17/2020, likely related to stones or stenosis. MRE 08/2020 1. Enterocolic fistula at the level of the ileocolic anastomosis which appears fibrosed in the mid segment and decreased in thickness compared to the prior exam. 2. No new site of inflammation identified in the small or large bowel loops. No evidence of bowel obstruction. 3. Unchanged left renal stones. Left inferior calyceal dilatation suggestive of possible infundibular stenosis. There is progressive hydronephrosis in the left kidney which becomes evident at the end of the examination suspicious for a stricture/stone at the left ureteropelvic junction. If clinically warranted, this can be further evaluated with CT. MRE 02/2020. 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 2. Suspected obstructing 1.2 cm left ureteral calculus at the ureteropelvic junction.0 [facility] HBV vaccination status: Non immune Covid vaccine: Unknown Assessment & Plan (07/21/2024 11:14 AM SLATE ROOFER HELPER): CD doing well. Noted on stelara q 4. No access problems. At this point f/u in 6 mo. Will be due for colon after that visit. Last colon was 05/11. Assessment & Plan (01/31/2024 10:18 AM CDT): CD doing well on stelara rx q 4. Demonstrable improvement. Will continue q 4 and f/u in 6 mo. Assessment & Plan (04/03/2023 10:02 AM CDT): CD with urgency. Will proceed with colon. Continuing the stelara. At least for now. Assessment & Plan (09/19/2022 9:40 AM SLATE ROOFER HELPER): Long standing CD doing well with one bm/day. No bleeding or EIM's. On stelara and colestipol. Will cont same and f/up in 6 mo. Will need a colon this year discuss in fall. Assessment & Plan (03/14/2022 10:57 AM CDT): CD doing well on stelara rx. Will continue same and f/up in 6 mo. Truly doing well. His only quibble is before seeing us he could eat anything he wanted and not gain wt. Since seeing us and on the appropriate meds he now gains wt and cannot lose it! Will go with colestipol and see if that does ok for him. Assessment & Plan (05/18/2020 10:23 AM CDT): Penetrating ileocolonic Crohn's disease since 2000. Resection in 2008. Was on no therapy afterward. MRE in February showed enterocolic fistula at the level of the IC anastamosis and active inflammation. Subsequent colonoscopy 04/04/2020 showed ulcers in the TI. Just started stelara on 05/06. Doing well.. One stool daily. Denies any abdominal pain. Denies any hematochezia. Occ mucous in stool. -continue stelara -continue to monitor safety labs -follow up in 3 months -will plan to repeat colonoscopy and MRE in 4-5 months to assess for response to stelara Assessment & Plan (03/30/2020 2:47 PM CDT): Penetrating cd previously fibrostenosing with EC fistula who has never been on a biologic. He is taking questran for diarrhea. 2 past resections noted. He is due for colon and ? Chromo next week. At this point he needs a biologic rx. As such my preference would be mono therapy with Stelara. In that position stelara has a 55% response rate. The alternative would be humira with 6MP but would be nice to avoid the lymphoma risk and the increased risk in a covid situation. Will get liver panel as he has had increased lft's in the past. He should have steatosis but not seen or called on his MRE. Will recheck. B12 had been checked and low and he is on sub l b12 so will recheck. He is having his colon on Saturday next week. Cervical disc herniation 02/02/2019 Overview (02/02/2019): Added automatically from request for surgery [id number] Cervical radiculopathy 02/02/2019 Overview (02/02/2019): Added automatically from request for surgery [id number] Fusion of spine of cervical region 02/02/2019 Overview (02/02/2019): Added automatically from request for surgery [id number] Cervical radiculopathy at C7 01/23/2019 Cervical pain (neck) 09/03/2017 Immunizations Name Administration Dates Next Due Influenza, Quadrivalent, Spl it, Preservative Free, Intramuscular 07/06/2019,05/22/2017 Tdap 08/26/2013 Social History Tobacco Use Types Packs/Day Years Used Date Smoking Tobacco: Former Cigarettes 1.5 9 1 4 - 2002 Smokeless Tobacco: Never Tobacco Cessation:Counseling Given: Not Answered Alcohol Use Standard Drinks/Week Comments Not Currently 0 (1 standard drink = 0.6 oz pur e alcohol) AUDIT-C Answer Date Recorded Q1: How often do you have a drink containing alc ohol? Monthly or less 05/03/2023 Q2: How many drinks containi ng alcohol do you have on a typical day when you are drinking? 1 or 2 05/03/2023 Frequency of Binge Drinking Not on file 04/19 Personal Safety Answer Date Recorded Have you ever been in or are you currently in a harmful physical or emotional relationship or is someone making you feel afraid or unsafe? Denies 05/03/2023 Sex and Gender Information Value Date Recorded Sex Assigned at Not on file Legal Sex Male 7:18 PM SLATE ROOFER HELPER Gender Identity Male 02/04/2019 10:52 AM CDT Sexual Orientation Straight 02/04/2019 10 :52 AM CDT Last Filed Vital Signs Vital Sign Reading Time Taken Comments Blood Pressure 121/84 10/09/2023 10:07 AM SLATE ROOFER HELPER Pulse 97 10/09/2023 10:07 AM SLATE ROOFER HELPER Temperature 36.3 ??C (97.3 ??F) 05/03/2023 9:55 AM CD T Respiratory Rate 27 05/03/2023 11:40 AM CDT Oxygen Saturation 92% 05/03/2023 11:40 AM CDT Inhaled Oxygen Concentration - - Weight 109.3 kg (241 lb) 10/09/2023 10:07 AM SLATE ROOFER HELPER Height 188 cm (6' 2 ) 10/09/2023 10:07 AM SLATE ROOFER HELPER Body Mass Index 30.94 10/09/2023 10:07 AM SLATE ROOFER HELPER Plan of Treatment Not on file Medical Devices Implanted Type Area Food Technician Device Identifier Shelf Expiration Date Model / Serial / Lot Titanium Plates N/A: Neck Musculoskeletal Transplant [id number] Frozen Spine 7d Lordotic Trapezoid Spacer Allograft - [id number] - [id number] Implanted:Qty: 1 on 02/16/2019 by Gabriel Horner MD at [facility] N/A: Spine Cervical Musculoskeletal Transplant 11/13/2022 [id number] / [id number] / [employer] [id number] Maxan 10mm Level 1 Spine Cervical Anterior Plate Bone Titanium - [id number] Implanted:Qty: 1 on 02/16/2019 by Gabriel Horner MD at [facility] N/A: Spine Cervical [employer] [id number] / / [employer] [id number] 4mm 16mm Fix Screw Bone - [id number] Implanted:Qty: 4 on 02/16/2019 by Gabriel Horner MD at [facility] N/A: Spine Cervical [employer] [id number] / / Procedures Procedure Name Priority Date/Time Associated Diagnosis Comments SCAN - LABS 06/15/2024 COLONOSCOPY 05/03/2023 10:45 AM CDT from Last 3 Months or Most Recently Relevant to Health Maintenance Results * SCAN - LABS (06/15/2024) us Provider Scanning Edited Result - Final * COLONOSCOPY (05/03/2023 10:45 AM CDT) Anatomical Region Laterality Modality Other Narrative Procedure Note Corbin Duque MD - 05/03/2023 10:45 AM CDT ENDOSCOPY LAB Patient Name: Kristian Joseph Procedure Date: 05/03/2023 10:45 AM Date of : 1970 Admit Type: Outpatient Age: 52 Gender: Male Attending MD: Corbin Duque M.D. Room: [facility] ENDOSCOPY ROOM 01 Note Status: Finalized Procedure: Colonoscopy Indications: Follow-up of Crohn's disease of the small bowel and colon Providers: Corbin Duque M.D., Marli Guzman M.D.(Fellow) Referring MD: Jayla Phoenix MD Medicines: Monitored Anesthesia Care Complications: No immediate complications. Estimated Blood Loss: Estimated blood loss was minimal. Procedure: Pre-Anesthesia Assessment: - Prior to the procedure, a History and Physicalwas performed, and patient medications and allergieswere reviewed. The patient is competent. The risks and benefits of the procedure and the sedation optionsand risks were discussed with the patient. Allquestions were answered and informed consent was obtained. Patient identification and proposed procedure were verified by the physician in the pre-procedurearea. Mental Status Examination: alert and oriented.Airway Examination: normal oropharyngeal airway and neck mobility. Respiratory Examination: clear to auscultation. CV Examination: normal. Prophylactic Antibiotics: The patient does not requireprophylactic antibiotics. Prior Anticoagulants: The patient has taken no anticoagulant or antiplatelet agents. ASA Grade Assessment: II - A patient with mild systemic disease. After reviewing the risks and benefits,the patient was deemed in satisfactory condition to undergo the procedure. The anesthesia plan was touse monitored anesthesia care (MAC). Immediately priorto administration of medications, the patient was re-assessed for adequacy to receive sedatives. The heart rate, respiratory rate, oxygen saturations, blood pressure, adequacy of pulmonary ventilation,and response to care were monitored throughout the procedure. The physical status of the patient was re-assessed after the procedure. The benefits, risks and alternatives of theprocedure and sedation were discussed and informed consentwas obtained. All questions were answered. Please referto the signed informed consent document in the medical record. The scope was passed under direct vision.The [id number] was introduced through the anusand advanced to 15 cm into the ileum. The colonoscopywas performed without difficulty. The patient tolerated the procedure well. The quality of the bowel preparation was good. Anatomical landmarks were photographed. Bowel prep was administered using a split dose. Findings: The perianal and digital rectal examinations were normal. The terminal ileum contained a few localized non-bleeding erosions. The Simple Endoscopic Score for Crohn's Disease was determined basedon the endoscopic appearance of the mucosa in the following segments: - Ileum: Findings include aphthous ulcers less than 0.5 cm in size,less than 10% ulcerated surfaces, less than 50% of surfaces affected andno narrowings. Segment score: 3. - Right Colon: Findings include no ulcers present, no ulcerated surfaces, no affected surfaces and no narrowings. Segment score: 0. - Transverse Colon: Findings include no ulcers present, no ulcerated surfaces, no affected surfaces and no narrowings. Segment score: 0. - Left Colon: Findings include no ulcers present, no ulceratedsurfaces, no affected surfaces and no narrowings. Segment score: 0. - Rectum: Findings include no ulcers present, no ulcerated surfaces,no affected surfaces and no narrowings. Segment score: 0. - Total SES-CD aggregate score: 3. Biopsies were taken with a cold forceps for histology. Verification of patient identification for the specimen was done. Estimated blood loss was minimal. Virtual chromoscopy with NBI was performed in the entire colon. No lesions noted. Impression: - A few erosions in the terminal ileum. - Simple Endoscopic Score for Crohn's Disease: 3, mucosal inflammatory changes secondary to Crohn's disease. Biopsied. - Chromoscopy was performed in the entire colon. Recommendation: - Discharge patient to home. - Resume previous diet. - Continue present medications. - Await pathology results. - Repeat colonoscopy in 2 years for surveillance. - Return to GI office in 4 weeks. - . Attending Participation: I was present and participated during the entire procedure from insertion to removal of the endoscope. Electronically signed by Corbin Duque MD Corbin Duque M.D. 05/03/2023 11:23:58 AM Marli Guzman M.D. Number of Addenda: 0 Note Initiated On: 05/03/2023 10:45 AM Corbin Duque MD ENDOSCOPY PROCEDURES Final Result from Last 3 Months or Most Recently Relevant to Health Maintenance Insurance [facility] ANTH ACC[facility] Advance Directives For more information, please contact: [phone] * Full Code (Latest Code Status on File) Date Activated Date Inactivated Comments 05/03/2023 10:04 AM 05/03/2023 3:50 PM * Full Code Date Activated Date Inactivated Comments 02/06/2021 8:18 AM 02/06/2021 3:24 PM * Full Code Date Activated Date Inactivated Comments 04/19/2020 11:24 AM 04/19/2020 6:15 PM * Full Code Date Activated Date Inactivated Comments 04/12/2020 6:49 PM 04/18/2020 6:00 PM * Full Code Date Activated Date Inactivated Comments 04/04/2020 9:49 AM 04/04/2020 3:57 PM Care Teams Product Scientist Relationship Specialty Start Date End Date Jayla Phoenix MD [address], [place] [id number] PCP - General 08/07/17
--- OUTSIDE RECORDS SUMMARY | 2024-08-23 08:01 | XMS_ITS | Encounter Summary ---
Author Organization [facility] Address [address] [place] [address] Care Team Providers Care Rides Supervisor Name Role Phone Jayla Phoenix MD Primary Care Provider [phone] Reason for Referral * Diagnostic Imaging (Routine) - Closed Specialty Diagnoses / Procedures Referred By Elina senior Referred To Contact Diagnoses Nephrolithiasis Procedures US Kidney Complete Hipolito Reyes MD Phone: tel: fax: [place] [phone] [address] [phone] Referral ID Status Reason Start Date Expiration Date Visits Re quested Visits Authorized [id number] Closed 08/30/2023 09/28/2024 1 1 Reason for Visit * Diagnostic Imaging (Routine) - Closed Specialty Diagnoses / Procedures Referred By Elina senior Referred To Contact Diagnoses Nephrolithiasis Procedures US Kidney Complete Hipolito Reyes MD Phone: tel: fax: [place] [phone] [place] [address] [phone] Referral ID Status Reason Start Date Expiration Date Visits Re quested Visits Authorized [id number] Closed 08/30/2023 09/28/2024 1 1 Encounter Details Date Type Department Care Team (Latest Contact Info) Description 02/28/2024 9:43 AM CDT - 02/28/2024 11:59 PM CDT Hospital Encounter [facility] ([facility]) [address] [place] [id number] Nephrolithiasis Discharge Disposition: Discharge to home or self care Social History Tobacco Use Types Packs/Day Years Used Date Smoking Tobacco: Former Cigarettes 1.5 9 1 994 - 2002 Smokeless Tobacco: Never Alcohol Use Standard Drinks/Week Comments Not Currently [...] on file 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 Gender Identity Male 02/04/2019 10:52 AM CDT Sexual Orientation Straight 02/04/2019 10 :52 AM CDT documented as of this encounter Medications at Time of Discharge cyanocobalamin, vitamin B-12, 5,000 mcg tablet, sublingualIndica tions:Prevention of Vitamin B12 Deficiency Place 1 tablet under the tongue drilling fluids specialist before breakfast losartan-hydroch lorothiazide (HYZAAR) 100-25 mg per tabletIndication s:hypertension Take 1 tablet by mouth nightly 02/23/2019 multivitamin capsuleIndicatio ns:Vitamin Deficiency Prevention Take 1 capsule by mouth drilling fluids specialist before breakfast tamsulosin (FLOMAX) 0.4 mg extended release capsuleIndicatio ns:Nephrolithias is Take 2 capsules (0.8 mg total) by mouth nightly 180 capsule 3 02/28/2024 traZODone (DESYREL) 100 mg tablet TAKE 2 TABLETS (100 MG) BY ORAL ROUTE AT BEDTIME 08/20/2022 colestipoL (COLESTID) 1 gram tablet TAKE 2 TABLETS BY MOUTH TWICE A DAY 360 tablet 1 12/11/2023 4 ustekinumab (STELARA) injectionIndicat ions:Crohn's Disease Inject 1 mL (90 mg total) under the skin every 4 (four) weeks Labs due in 04/2024 1 mL 2 02/05/2024 4 documented as of this encounter Discharge Disposition Disposition Code Departure Means Destination Discharge to home or self care documented in this encounter Plan of Treatment Not on file documented as of this encounter Procedures Procedure Name Priority Date/Time Associated Diagnosis Comments US KIDNEY COMPLETE Schedule Routine, Read Routine (OP Routine) 02/28/2024 10:25 AM CDT Nephrolithiasis documented in this encounter Results * US Kidney Complete (02/28/2024 10:25 AM CDT) Anatomical Region Laterality Modality Kidney N/A Ultrasound 02/28/2024 11:2 0 AM CDT Impressions 02/28/2024 2:32 PM CDT There is a 1 cm calculus in the right collecting system. The left renal calculus appears to be intraparenchymal. No hydronephrosis. Dictated by: Angel Ely M.D. The radiology attending physician has personally reviewed this study, and had reviewed and/or edited this written report and agrees with it. Electronically signed by: Katt Escalante M.D. Narrative 02/28/2024 2:32 PM CDT EXAMINATION: COMPLETE RENAL SONOGRAM HISTORY: ??53-year-old male with kidney stones and Crohn's disease. Status post left-sided PCN and stone removal. COMPARISON: ??Renal ultrasound 11/15/2022 and MRI 12/21/2021 FINDINGS: ?? Kidneys: The echogenicity of both kidneys is normal. The kidneys are normal in size. ??The right kidney measures 11.7 cm in length, and the left, 10.8 cm in length. There is no hydronephrosis in either kidney. There is a 1 cm renal calculus in the superior pole of the right kidney. ??There is a 1.3 cm renal calculus in the mid left kidney that appears to be intraparenchymal. Per prior op note, this stone may have been dislodged into the renal parenchyma. There is a stable milk of calcium cyst in the inferior pole of the left kidney. Bladder: The urinary bladder is normal. ??Bilateral ureteral ureteral jets visualized on color flow. Procedure Note Katt Escalante MD - 02/28/2024 EXAMINATION: COMPLETE RENAL SONOGRAM HISTORY: 53-year-old male with kidney stones and Crohn's disease. Status post left-sided PCN and stone removal. COMPARISON: Renal ultrasound 11/15/2022 and MRI 12/21/2021 FINDINGS: Kidneys: The echogenicity of both kidneys is normal. The kidneys are normal in size. The right kidney measures 11.7 cm in length, and the left, 10.8 cm in length. There is no hydronephrosis in either kidney. There is a 1 cm renal calculus in the superior pole of the right kidney. There is a 1.3 cm renal calculus in the mid left kidney that appears to be intraparenchymal. Per prior op note, this stone may have been dislodged into the renal parenchyma. There is a stable milk of calcium cyst in the inferior pole of the left kidney. Bladder: The urinary bladder is normal. Bilateral ureteral ureteral jets visualized on color flow. IMPRESSION: There is a 1 cm calculus in the right collecting system. The left renal calculus appears to be intraparenchymal. No hydronephrosis. Dictated by: Angel Ely M.D. The radiology attending physician has personally reviewed this study, and had reviewed and/or edited this written report and agrees with it. Electronically signed by: Katt Escalante M.D. Hipolito Reyes MD [facility] US PROCEDURES F inal Result documented in this encounter Visit Diagnoses Diagnosis Nephrolithiasis Calculus of kidney documented in this encounter Care Teams Rides Supervisor Relationship Specialty Start Date End Date Jayla Phoenix MD [address] [place] [address] PCP - General 08/07/17 documented as of this encounter
--- OUTSIDE RECORDS SUMMARY | 2024-08-23 08:01 | XMS_ITS | Clinical Summary ---
Author Organization [facility] Address [address] [place] [address] Care Team Providers Care Red Leader Name Role Phone Jayla Phoenix MD Primary Care Provider [phone] Source Comments [facility],non-owned Affiliates and Associated Physician Practices is amultiple site organization consisting of ambulatory clinics and hospital sitesin [place], [place], [place] and [place]. This disclosure is being madepursuant to the Care Everywhere program and may not contain all information available regarding this patient. Last updated 18.[facility] Social History Tobacco Use Types Packs/Day Years Used Date Smoking Tobacco: Never Assessed Sex and Gender Information Value Date Recorded Sex Assigned at Not on file Gender Identity Not on file Sexual Orientation Not on file Plan of Treatment Health Maintenance Due Date Last Done Comments COLOGUARD (AGES 45-75) - COL ON CA SCREENING 1972 COLON MONITORING 1972 COLONOSCOPY - COLON CA SCREENING 1972 CT COLONOGRAPHY - COLON CA SCREENING 1972 Colorectal Cancer Screening 1972 FIT - COLON CA SCREENING 1972 FLEX SIG - COLON CA SCREENING 1972 LIPID TESTING 1972 HIV SCREENING 1987 HEPATITIS C SCREENING 07/01/1990 DTAP/TDAP/TD VACCINES (1 - Tdap) 1991 HEPATITIS B VACCINE (1 of 3 - 19+ 3-dose series) 1991 ZOSTER VACCINE (1 of 2) 2022 DEPRESSION SCREENING 08/19/2023 COVID-19 VACCINE (2023-2 5 season) 2024 INFLUENZA VACCINE (#1) 2024 HIB VACCINE Aged Out No longer eligi ble based on patient's age to complete this topic HPV VACCINE Aged Out No longer eligi ble based on patient's age to complete this topic MENINGOCOCCAL VACCINE Aged Out No allyssa linda eligible based on patient's age to complete this topic PNEUMOCOCCAL VACCINE Aged Out No long er eligible based on patient's age to complete this topic Care Teams Red Leader Relationship Specialty Start Date End Date Jayla Phoenix MD PCP - General Internal Medicine 09/23/13
--- OUTSIDE RECORDS SUMMARY | 2024-08-23 08:01 | XMS_ITS | Encounter Summary ---
Author Organization [facility] Address [address] [place] [address] Phone Care Team Providers Care Route Aide Name Role Phone Jayla Phoenix MD Primary Care Provider [phone] Reason for Visit * Reason Onset Date Comments Prior Auth 04/06/2024 PLE q6w [place] Encounter Details Date Type Department Care Team (Late st Contact Info) Description 04/06/2024 Telephone [facility] Gastroenterology [facility] 12th [place] [address] [place] [address] Thea Hussein Prior Auth (PLE q6w [place]) Social History Tobacco Use Types Packs/Day Years [...] on file 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 Call back phone #[phone] fax #[phone] documented in this encounter Plan of Treatment Not on file documented as of this encounter Visit Diagnoses Not on filedocumented in this encounter Care Teams Route Aide Relationship Specialty Start Date End Date Jayla Phoenix MD [address] [place] [address] PCP - General 08/07/17 documented as of this encounter
--- OUTSIDE RECORDS SUMMARY | 2024-08-23 08:01 | XMS_ITS | Encounter Summary ---
Author Organization [facility] Address [address] [place] [address] Phone Care Team Providers Care Director Of Litigation Name Role Phone Jayla Phoenix MD Primary Care Provider [phone] Reason for Visit * Reason Onset Date Comments Prior Auth 02/21/2024 Encounter Details Date Type Department Care Team (Late st Contact Info) Description 02/21/2024 Telephone [facility] Gastroenterology [address] [facility] 12th [place] [address] [place] [address] Corbin Duque MD [address] [place] [address] Prior Auth Social History Tobacco Use Types Packs/Day Years [...] on file 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 FYI - It looks like q4w Stelara second level appeal denial letter was scanned to [employer] on 03/05/24. * Telephone Encounter - Thea Hussein - 03/05/2024 1:46 PM CDT Rcv'd call from Community Sports Coordinator at [facility] Appeals requesting to speak to Dr. Duque regarding request for q4w Stelara dosing. I advised Dr. Duque is currently on leave, GENERAL CLAIMS AGENT in clinic and not available at the moment. Unable to approve q4w dosing because plan requires him to trial/fail q6w dosing first. Community Sports Coordinator stated he is board certified bakery helper hates to deny, but doesn't have the documentation to approve case at this time. He also can advise there are some labs that could be done to help provide documentation for approval, should the provider decide to resubmit * Telephone Encounter - Lexi Ward V. - 03/03/2024 1:50 PM CDT Appeal faxed 03/03/2024 * Telephone Encounter - Thea Hussein - 03/03/2024 11:45 AM CDT LMN, copy of denial, journal article, office note, colonoscopy & pathology reports routed to Prec[employer] Team 03/03/24. Please fax to plan for q4w Stelara appeal. * Telephone Encounter - Lexi Ward V. - 03/02/2024 10:09 AM CDT Images from the original note were not included. Good morning, I sent progress note with the first request. Which is a bit weird, I have initiated a new PA request. I will keep an eye on this request. Thanks Valenzuela: [id number] Stelara 90MG/ML syringes [employer] : Status:Denied Reason: * Telephone Encounter - Lexi Ward V. - 02/28/2024 2:38 PM CDT Images from the original note were not included. Valenzuela: [id number] Stelara 90MG/ML syringes [employer]: Status:Denied Reason: * Telephone Encounter - Thea Hussein - 02/28/2024 1:18 PM CDT Rcv'd call from [facility] Specialty stating pt has new [place] Aet[place] and needs PA for new plan. Auth listed below is for an old plan. Request for new plan has been started via CMM Valenzuela: [id number] [employer] Id # [id number] BIN: [id number] PCN: [id number] GRP: [id number] * Telephone Encounter - Lexi Ward V. - 02/21/2024 10:35 AM CDT Images from the original note were not included. Good Morning, Looks like the A[employer] is the Approval ustekinumab (STELARA) injection [facility] Status: Approved Case: [id number] - [id number] Effective Dates: 10/29/2023 - 10/28/2024 * Telephone Encounter - Michelle Hazel RN - 02/21/2024 9:59 AM CDT Stelara [id number] with new plan documented in this encounter Plan of Treatment Not on file documented as of this encounter Visit Diagnoses Diagnosis Crohn's disease of small and large intestines with complication (HCC) documented in this encounter Care Teams Director Of Litigation Relationship Specialty Start Date End Date Jayla Phoenix MD [address] [place] [address] PCP - General 08/07/17 documented as of this encounter
--- OUTSIDE RECORDS SUMMARY | 2024-08-23 08:01 | XMS_ITS | Encounter Summary ---
Author Organization [facility] Address [address] [place] [address] Phone Care Team Providers Care Automobile Travel Club Counselor Name Role Phone Jayla Phoenix MD Primary Care Provider [phone] Reason for Visit * Reason Onset Date Comments Medication PA Approval 04/08/2024 Encounter Details Date Type Department Care Team (Late st Contact Info) Description 04/08/2024 Telephone [facility] Infectious Diseases [address] [place] [address] [address] [place] [address] Eboni Katz RPh Medication PA Approval Social History Tobacco Use Types Packs/Day Years Used Date Smoking Tobacco: Former Cigarettes 1.5 9 1 4 - 2002 Smokeless Tobacco: Never Alcohol Use [...] on file 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 Gender Identity Male 02/04/2019 10:52 AM CDT Sexual Orientation Straight 02/04/2019 10 :52 AM CDT documented as of this encounter Miscellaneous Notes * Telephone Encounter - Eboni Katz RPh - 04/08/2024 11:28 AM CDT [facility] Infectious Diseases Pharmacy Referral Drug Name & Strength: Stelara 90 mg/mL SOSY Quantity: 1 mL Days Supply: 42 Insurance Plan: Dot Prior Authorization Required: Y CoverMyMeds Valenzuela: [id number] PA Status: Approved Approval Effective: 04/07/24 - 04/07/25 Copay: $5 Copay Assistance: Applicasa Copay Card Medication will be delivered to patient on: 04/09 Notes to Office: Kristian reports being due for his next dose this Thursday 04/12, should receive shipmentof medication tomorrow 04/09! documented in this encounter Plan of Treatment Not on file documented as of this encounter Visit Diagnoses Not on filedocumented in this encounter Care Teams Automobile Travel Club Counselor Relationship Specialty Start Date End Date Jayla Phoenix MD [address] [place] [address] PCP - General 08/07/17 documented as of this encounter
--- OUTSIDE RECORDS SUMMARY | 2024-08-23 08:01 | XMS_ITS | Encounter Summary ---
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 Gender Identity Male 02/04/2019 10:52 AM CDT Sexual Orientation Straight 02/04/2019 10 :52 AM CDT documented as of this encounter Plan of Treatment Not on file documented as of this encounter Procedures Procedure Name Priority Date/Time Associated Diagnosis Comments SCAN - LABS 06/15/2024 documented in this encounter Results * SCAN - LABS (06/15/2024) us Provider Scanning Edited Result - Final documented in this encounter Visit Diagnoses Not on filedocumented in this encounter Care Teams Farmer Cash Grain Relationship Specialty Start Date End Date Jayla Phoenix MD [address] [place] [address] PCP - General 08/07/17 documented as of this encounter
--- OUTSIDE RECORDS SUMMARY | 2024-08-23 08:01 | XMS_ITS | Encounter Summary ---
Author Organization [facility] Address [address] [place] [address] Care Team Providers Care Cigarette Package Examiner Name Role Phone Jayla Phoenix MD Primary Care Provider [phone] Encounter Details Date Type Department Care Team (Late st Contact Info) Description 09/23/2013 9:05 AM COMFORT FILLER - 09/23/2013 9:13 AM COMFORT FILLER Hospital Encounter [facility] - Laboratory [address] [place] [address] Jayla Phoenix MD [address] [place] [address] Discharge Disposition: Home or Self Care Social History Tobacco Use Types Packs/Day Years Used Date Smoking Tobacco: Never Assessed Sex and Gender Information Value Date Recorded Sex Assigned at Not on file Gender Identity Not on file Sexual Orientation Not on file documented as of this encounter Miscellaneous Notes * Miscellaneous Scans - Document, Scanned - 09/24/2013 10:10 PM CST ORT FILLER documented in this encounter Plan of Treatment Not on file documented as of this encounter Visit Diagnoses Not on filedocumented in this encounter Care Teams Cigarette Package Examiner Relationship Specialty Start Date End Date Jayla Phoenix MD PCP - General Internal Medicine 09/23/13 documented as of this encounter
--- OUTSIDE RECORDS SUMMARY | 2024-08-23 08:01 | XMS_ITS | Encounter Summary ---
Author Organization [facility] Address [address] [place] [address] Phone Care Team Providers Care Key Carrier Name Role Phone Jayla Phoenix MD Primary Care Provider [phone] Encounter Details Date Type Department Care Team (Late st Contact Info) Description 06/09/2024 Orders Only [facility] Gastroenterology [address] [facility] 12th [place] [address] [place] [address] Corbin Duque MD [address] [place] [address] High risk medications (not anticoagulants) long-term use (Primary Dx); Crohn's disease of both small and large intestine with other complication (HCC) Social History Tobacco Use Types Packs/Day Years [...] on file 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 New safety lab orders (CBC, CMP, CRP & TB) faxed to [facility] lab fax #[phone]. Reminder letter sent to pt via [employer]. Unable to refill Stelara until updated lab results are received. documented in this encounter Plan of Treatment Scheduled Orders Name Type Priority Associated Diagnoses Orde r Schedule CBC with auto differential Lab Routine High risk medications (not anticoagulants) long-term use Crohn's disease of both small and large intestine with other complication (HCC) Expected: 06/09/2024 (Approximate), Expires: 06/09/2025 Comprehensive metabolic panel Lab Routine High risk medications (not anticoagulants) long-term use Crohn's disease of both small and large intestine with other complication (HCC) Expected: 06/09/2024 (Approximate), Expires: 06/09/2025 CRP (acute phase) Lab Routine High risk medications (not anticoagulants) long-term use Crohn's disease of both small and large intestine with other complication (HCC) Expected: 06/09/2024 (Approximate), Expires: 06/09/2025 TB test, quantiferon gold Lab Routine High risk medications (not anticoagulants) long-term use Crohn's disease of both small and large intestine with other complication (HCC) Expected: 06/09/2024 (Approximate), Expires: 06/09/2025 documented as of this encounter Visit Diagnoses Diagnosis High risk medications (not anticoagulants) long-term use- Primary Encounter for long-term (current) use of other medications Crohn's disease of both small and large intestine with other complication (HCC) documented in this encounter Care Teams Key Carrier Relationship Specialty Start Date End Date Jayla Phoenix MD [address] [place] [address] PCP - General 08/07/17 documented as of this encounter
--- OUTSIDE RECORDS SUMMARY | 2024-08-23 08:01 | XMS_ITS | Patient Health Summary ---
Author Organization [facility] Address [address] [place] [address] Care Team Providers Care Industrial Maintenance Technician Name Role Phone Jayla Phoenix MD Primary Care Provider [phone] Note from [facility],non-owned Affiliates and Associated Physician Practices is amultiple site organization consisting of ambulatory clinics and hospital sitesin [place], [place], [place] and [place]. This disclosure is being madepursuant to the Care Everywhere program and may not contain all information available regarding this patient. Last updated 18.[facility] Social History Tobacco Use Types Packs/Day Years Used Date Smoking Tobacco: Never Assessed Sex and Gender Information Value Date Recorded Sex Assigned at Not on file Gender Identity Not on file Sexual Orientation Not on file Procedures * XR ABDOMEN KUB(Performed 09/23/2013) Performed for Calculus of kidney Results * XR ABDOMEN 1 VW (09/23/2013 9:20 AM PHARMACY INFORMATICS MANAGER) Anatomical Region Laterality Modality Abdomen Radiographic Tiffany ging 09/23/2013 10:5 8 AM PHARMACY INFORMATICS MANAGER Impressions 09/23/2013 11:15 AM PHARMACY INFORMATICS MANAGER Left ureteral stent, bilateral calculi. Edited by Kely Kebede on 09/23/2013 11:03 AM Narrative 09/23/2013 11:15 AM PHARMACY INFORMATICS MANAGER ABDOMEN KUB ONE VIEW Indication: Abdominal pain. KUB of the abdomen shows a left ureteral stent in place. Multiple calcifications are seen in the region of the left lower pole collecting system as well as calcifications on the right. A right-sided calculus just above the right 12th rib measures 5 mm. No definite stones are seen overlying the course of the ureteral stent. There is no comparison examination. Procedure Note Gau, Samantha M, MD - 09/23/2013 ABDOMEN KUB ONE VIEW Indication: Abdominal pain. KUB of the abdomen shows a left ureteral stent in place. Multiple calcifications are seen in the region of the left lower pole collecting system as well as calcifications on the right. A right-sided calculus just above the right 12th rib measures 5 mm. No definite stones are seen overlying the course of the ureteral stent. There is no comparison examination. IMPRESSION Left ureteral stent, bilateral calculi. Edited by Kely Kebede on 09/23/2013 11:03 AM Corbin Wood MD DIAGNOSTIC IMAGING [facility] Care Teams Industrial Maintenance Technician Relationship Specialty Start Date End Date Jayla Phoenix MD PCP - General Internal Medicine 09/23/13
--- OUTSIDE RECORDS SUMMARY | 2024-08-23 08:01 | XMS_ITS | Referral Summary ---
Author Organization [facility] Address [address] [place] [address] Care Team Providers Care Manager Cancer Name Role Phone Jayla Phoenix MD Primary Care Provider [phone] Source Comments [facility],non[facility] Affiliates and Associated Physician Practices is amultiple site organization consisting of ambulatory clinics and hospital sitesin [place], [place], [place] and [place]. This disclosure is being madepursuant to the Care Everywhere program and may not contain all information available regarding this patient. Last updated 18.[facility] [employer] Social History Tobacco Use Types Packs/Day Years Used Date Smoking Tobacco: Never Assessed Sex and Gender Information Value Date Recorded Sex Assigned at Not on file Gender Identity Not on file Sexual Orientation Not on file Plan of Treatment Not on file Care Teams Manager Cancer Relationship Specialty Start Date End Date Jayla Phoenix MD PCP - General Internal Medicine 09/23/13
--- OUTSIDE RECORDS SUMMARY | 2024-08-23 08:01 | XMS_ITS | Encounter Summary ---
Author Organization [facility] Address [address] [place] [address] Phone Care Team Providers Care News Producer Name Role Phone Jayla Phoenix MD Primary Care Provider [phone] Reason for Referral * Diagnostic Imaging (Routine) - Authorized Specialty Diagnoses / Procedures Referred By Contac t Referred To Contact Diagnoses Nephrolithiasis Procedures US Kidney Complete Hipolito Reyes MD Phone: tel: fax: [address] [address] Referral ID Status Reason Start Date Expiration Date V isits Requested Visits Authorized [id number] Authorized 02/28/2024 03/29/2025 1 1 Reason for Visit * Reason Comments Nephrolithiasis Encounter Details Date Type Department Care Team (Late st Contact Info) Description 02/28/2024 11:40 AM CDT Office Visit [facility]) - [facility] Urology [address] [facility] Advanced Medicine 11th [place] [address] [place] [address] Hipolito Reyes MD [address] [place] [address] Nephrolithiasis (Primary Dx); Benign prostatic hyperplasia with urinary frequency Social History Tobacco Use Types Packs/Day Years [...] on file 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 male with the following diagnoses: (N20.0) Nephrolithiasis (primary encounter diagnosis) (N40.1, R35.0) Benign prostatic hyperplasia with urinary frequency Plan: We will plan on continuing surveillance for nephrolithiasis with annual renal ultrasound. Continue tamsulosin 0.8 mg for LUTS. Orders: No orders of the defined types were placed in this encounter. Chief Complaint: Chief Complaint Patient presents with Nephrolithiasis History of Present Illness: Kristian Vasques is a 53 y.o. male with hx of nephrolithiasis, Crohn's disease, and LUTS. No stone episodes since last visit and no stone symptoms. He is generally satisfied with his LUTS and mostly experiences 1x nocturia. No stone symptoms. Taking tamsulosin 0.8 mg. The patient's past medical, surgical, medication, allergy, family, and social histories were reviewed and noncontributory to this illness/condition except as noted below: The patient's past medical history is notable for: Past Medical History: Diagnosis Date Colon polyp Crohn's disease (CMS/HCC) (HCC) 2000 DDD (degenerative disc disease), cervical Gastric reflux HTN (hypertension) Kidney stone The patient's past surgical history is notable for: Past Surgical History: Procedure Laterality Date ANTERIOR CERVICAL DISCECTOMY W/ FUSION 2017 hardware removal 02/2019 APPENDECTOMY BOWEL RESECTION 2008 COLONOSCOPY KIDNEY STONE SURGERY 2019 NEPHROSTOGRAM THROUGH EXISTING CATHETER LEFT Left 04/19/2020 The patient is currently taking the following medications: Current Outpatient Medications Medication Sig Dispense Refill colestipoL (COLESTID) 1 gram tablet TAKE 2 TABLETS BY MOUTH TWICE A DAY 360 tablet 1 cyanocobalamin, vitamin B-12, 5,000 mcg tablet, sublingual Place 1 tablet under the tongue sample taker operator before breakfast losartan-hydrochlorothiazide (HYZAAR) 100-25 mg per tablet Take 1 tablet by mouth nightly multivitamin capsule Take 1 capsule by mouth sample taker operator before breakfast tamsulosin (FLOMAX) 0.4 mg extended release capsule Take 2 capsules (0.8 mg total) by mouth [id number] capsule 3 traZODone (DESYREL) 100 mg tablet TAKE 2 TABLETS (100 MG) BY ORAL ROUTE AT BEDTIME ustekinumab (STELARA) injection Inject 1 mL (90 mg total) under the skin every 4 (four) weeks Labs due in 04/2024 1 mL 2 No current facility-administered medications for this visit. The patient is allergic to: Allergies Allergen Reactions Iodinated Contrast Media Rash The patient's past family history is notable for: Family History Problem Relation Age of Onset Heart attack Father Anesthesia problems Neg Hx The patient's past social history is notable for: Social History Tobacco Use Smoking status: Former Current packs/day: 0.00 Average packs/day: 1.5 packs/day for 9.0 years (13.5 ttl pk-yrs) Types: Cigarettes Start date: 1993 Quit date: 2002 Years since quittin.5 Smokeless tobacco: Never Substance and Sexual Activity Drug use: No Sexual activity: Not on file Alcohol Use: Unknown (05/03/2023) AUDIT-C Frequency of Alcohol Consumption: Monthly or less Average Number of Drinks: 1 or 2 Frequency of Binge Drinking: Not on file Objective: Physical Exam There were no vitals filed for this visit. Gen: NAD Neuro: Alert, conversation appropriate Skin: No rashes or lesions of exposed skin Head: normocephalic Eyes: no strabismus Neck: trachea midline. Pulm: respirations non-labored CV: extremities and mucous membranes pink MSK: moves bilateral upper extremities without difficulty. ambulates without assistance The following lab results were personally reviewed by me: Lab Results Component Value Date GLUCOSE 98 12/21/2020 CALCIUM 9.5 12/21/2020 SODIUM 139 12/21/2020 POTASSIUM 4.2 12/21/2020 CO2 26 12/21/2020 CHLORIDE 103 12/21/2020 BUNSER 20 12/21/2020 CREATININE 1.1 12/21/2021 Lab Results Component Value Date WBC 5.8 12/21/2020 HGB 14.1 12/21/2020 HCT 41.5 12/21/2020 MCV 87.4 12/21/2020 LABPLAT 286 12/21/2020 Lab Results Component Value Date CALCIUM 9.5 12/21/2020 PHOS 2.7 04/14/2020 No results found for: PSA I personally reviewed the images for the following studies and my findings were: Renal ultrasound 02-28-24 I can see a left renal milk of calcium cyst and a right shadowing area of calculus. No hydronephrosis bilaterally. US Kidney Complete Narrative: EXAMINATION: COMPLETE RENAL SONOGRAM HISTORY: 53-year-old male [...] renal calculus in the mid left kidney and appears to be intraparenchymal. Per prior op note, this stone may have been dislodged into the renal parenchyma. There is a stable milk of calcium cyst in the inferior pole of the left kidney. Bladder: The urinary bladder is normal. Bilateral ureteral ureteral jets visualized on color flow. Impression: Bilateral non-obstructive renal calculi and left-sided milk of calcium cyst. Left renal calculus may be intraparenchymal. No hydronephrosis. Dictated by: Angel Ely M.D. Thank you for allowing us to participate in the care of this patient. Please do not hesitate to contact us should you have any questions or concerns at [phone]. documented in this encounter Plan of Treatment Scheduled Orders Name Type Priority Associated Diagnoses Orde r Schedule US Kidney Complete Imaging Schedule Tatiana Bryant Routine (OP Routine) Nephrolithiasis Expected: 02/27/2025, Expires: 08/30/2025 documented as of this encounter Visit Diagnoses Diagnosis Nephrolithiasis- Primary Calculus of kidney Benign prostatic hyperplasia with urinary frequency documented in this encounter Discontinued Medications Medication Sig Discontinue Reason Start Date End Da te tamsulosin (FLOMAX) 0.4 mg extended release capsuleIndications:Neph rolithiasis Take 2 capsules (0.8 mg total) by mouth nightly Reorder 08/30/2023 02/28/2024 documented as of this encounter Care Teams News Producer Relationship Specialty Start Date End Date Jayla Phoenix MD [address] [place], [place] [id number] PCP - General 08/07/17 documented as of this encounter
--- OUTSIDE RECORDS SUMMARY | 2024-08-23 08:01 | XMS_ITS | Encounter Summary ---
Author Organization [facility] Address [address] [place] [address] Phone Care Team Providers Care Doors Prefitter Name Role Phone Jayla Phoenix MD Primary Care Provider [phone] Encounter Details Date Type Department Care Team (Late st Contact Info) Description 03/06/2024 Orders Only [facility] Gastroenterology [address] [place] [address] Medical Office Building [address] [place] [address] Corbin Duque MD [address] [place] [address] Crohn's disease of small and large intestines with complication (HCC) Social History Tobacco Use Types [...] on file 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 Gender Identity Male 02/04/2019 10:52 AM CDT Sexual Orientation Straight 02/04/2019 10 :52 AM CDT documented as of this encounter Ordered Prescriptions Prescription Sig Dispense Quantity Refills Last Filled Start Date End Date ustekinumab (STELARA) injectionIndicatio ns:Crohn's Disease Inject 1 mL (90 mg total) under the skin every 6 (six) weeks Labs due in 04/2024 1 mL 1 03/06/2024 04/06/2024 documented in this encounter Plan of Treatment Not on file documented as of this encounter Visit Diagnoses Diagnosis Crohn's disease of small and large intestines with complication (HCC) documented in this encounter Discontinued Medications Medication Sig Discontinue Reason Start Date End Da te ustekinumab (STELARA) injectionIndications:Knife Operator hn's Disease Inject 1 mL (90 mg total) under the skin every 4 (four) weeks Labs due in 04/2024 Reorder 02/05/2024 03/06/2024 documented as of this encounter Care Teams Doors Prefitter Relationship Specialty Start Date End Date Jayla Phoenix MD [address] [place] [address] PCP - General 08/07/17 documented as of this encounter
--- OUTSIDE RECORDS SUMMARY | 2024-08-23 08:01 | XMS_ITS | Encounter Summary ---
Author Organization [facility] Address [address] [place] [address] Phone Care Team Providers Care Roving Changer Name Role Phone Jayla Phoenix MD Primary Care Provider [phone] Encounter Details Date Type Department Care Team (Late st Contact Info) Description 04/06/2024 Orders Only [facility] Gastroenterology [address] [facility] Advanced Medicine 12th [place] [address] [place] [address] Corbin Duque MD [address] [place] [address] Crohn's disease of small and [...] on file 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 Gender Identity Male 02/04/2019 10:52 AM CDT Sexual Orientation Straight 02/04/2019 10 :52 AM CDT documented as of this encounter Ordered Prescriptions Prescription Sig Dispense Quantity Refills Last Filled Start Date End Date ustekinumab (STELARA) injectionIndicatio ns:Crohn's Disease Inject 1 mL (90 mg total) under the skin every 6 (six) weeks Labs due in 04/2024 1 mL 1 04/06/2024 06/22/2024 documented in this encounter Plan of Treatment Not on file documented as of this encounter Visit Diagnoses Diagnosis Crohn's disease of small and large intestines with complication (HCC) documented in this encounter Discontinued Medications Medication Sig Discontinue Reason Start Date End Da te ustekinumab (STELARA) injectionIndications:Data Collection Technician hn's Disease Inject 1 mL (90 mg total) under the skin every 6 (six) weeks Labs due in 04/2024 Reorder 03/06/2024 04/06/2024 documented as of this encounter Care Teams Roving Changer Relationship Specialty Start Date End Date Jayla Phoenix MD [address] [place] [address] PCP - General 08/07/17 documented as of this encounter
--- OUTSIDE RECORDS SUMMARY | 2024-08-23 08:01 | XMS_ITS | Clinical Summary ---
Author Organization [facility] Address [address] [place] [address] Care Team Providers Care Solar Pv Installer Name Role Phone Jayla Phoenix MD Primary Care Provider [phone] Allergies Active Allergy Reactions Criticality Noted Date Comments Iodinated Contrast Media Rash Medium 01/23/2019 Medications losartan-hydrochl orothiazide (HYZAAR) 100-25 mg per tabletIndications :hypertension Take 1 tablet by mouth nightly 9 Active multivitamin capsuleIndication s:Vitamin Deficiency Prevention Take 1 capsule by mouth vision specialist before breakfast Active cyanocobalamin, vitamin B-12, 5,000 mcg tablet, sublingualIndicat ions:Prevention of Vitamin B12 Deficiency Place 1 tablet under the tongue vision specialist before breakfast Active traZODone (DESYREL) 100 mg [...] (12/21/2020): Added automatically from request for surgery [id number] Hyperoxaluria 12/21/2020 Benign prostatic hyperplasia with urinary [...] (04/05/2020): Added automatically from request for surgery [id number] Crohn's disease of both smal l and large intestine with fistula 03/03/2020 Overview (03/03/2020): Added automatically from request for surgery [id number] Crohn's disease of both smal l and [...] Unknown Assessment & Plan (07/21/2024 11:14 AM BOOK ILLUSTRATOR): CD doing well. Noted on stelara q [...] now. Assessment & Plan (09/19/2022 9:40 AM BOOK ILLUSTRATOR): Long standing CD doing well with one [...] (02/02/2019): Added automatically from request for surgery [id number] Cervical radiculopathy 02/02/2019 Overview (02/02/2019): Added automatically from request for surgery [id number] Fusion of spine of cervical region 02/02/2019 Overview (02/02/2019): Added automatically from request for surgery [id number] Cervical radiculopathy at C7 01/23/2019 Cervical pain (neck) 09/03/2017 Encounters Date Type Department Care Team Description 07/21/2024 11:00 AM BOOK ILLUSTRATOR Telemedicine [facility] [address] [facility] [address] [place] [address] Corbin Duque MD High risk medications (not anticoagulants) long-term use (Primary Dx); 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) 06/16/2024 Documentation [facility] Gastroenterology [address] [facility] 12th [place] [address] [place] [address] Judi Sorensen RN Lab Results 06/15/2024 Orders Only [facility] GASTROENTEROLOGY Scanning, Provider 06/09/2024 Orders Only [facility] Gastroenterology [facility] 12th [place] [address] [place] [address] Corbin Duque MD High risk medications (not anticoagulants) long-term use (Primary Dx); Crohn's disease of both small and large intestine with other complication (HCC) from Last 3 Months Immunizations Name Administration Dates Next Due Influenza, Quadrivalent, Spl it, Preservative Free, Intramuscular 07/06/2019,05/22/2017 Tdap 08/26/2013 Surgical History Surgery Date Site/Laterality Comments ANTERIOR CERVICAL DISCECTOMY W/ FUSION 08/19/2017 - 08/18/2018 hardware removal 02/2019 BOWEL RESECTION 08/19/2008 - 08/18/2009 KIDNEY STONE SURGERY 08/19/2019 - 08/18/2020 NEPHROSTOGRAM THROUGH EXISTING CATHETER LEFT 04/19/2020 Left COLONOSCOPY APPENDECTOMY Medical History Medical History Date Comments Gastric reflux HTN (hypertension) Crohn's disease (CMS/HCC) (HCC) 2000 DDD (degenerative disc disease), cervical Colon polyp Kidney stone Family History Medical History Relation Name Comments Heart attack Father Anesthesia problems Neg Hx Relation Name Status Comments Father Other ^ F 79 y/o. 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 Gender Identity Male 02/04/2019 10:52 AM CDT Sexual Orientation Straight 02/04/2019 10 :52 AM CDT Obstetrics History Last Filed Vital Signs Vital Sign Reading Time Taken Comments Blood Pressure 121/84 10/09/2023 10:07 AM BOOK ILLUSTRATOR Pulse 97 10/09/2023 10:07 AM BOOK ILLUSTRATOR Temperature 36.3 ??C (97.3 ??F) 05/03/2023 9:55 AM CD T Respiratory Rate 27 05/03/2023 11:40 AM CDT Oxygen Saturation 92% 05/03/2023 11:40 AM CDT Inhaled Oxygen Concentration - - Weight 109.3 kg (241 lb) 10/09/2023 10:07 AM BOOK ILLUSTRATOR Height 188 cm (6' 2 ) 10/09/2023 10:07 AM BOOK ILLUSTRATOR Body Mass Index 30.94 10/09/2023 10:07 AM BOOK ILLUSTRATOR Plan of Treatment Health Maintenance Due Date Last Done Comments Depression Screening 1972 Hepatitis C Screening 1972 Prostate Cancer Screening-PSA 1972 Hepatitis B Screening 1990 Regular Well Visit/Exam 18-64 1990 Zoster Vaccine (1 of 2) 2022 DTaP/Tdap/Td Vaccine (2 - Td or Tdap) 08/26/2023 08/26/2013 Influenza Vaccine (#1) 2024 9, 05/22/2017 Colon Cancer Screening-Colonoscopy 05/03/2033 05/03/2023, 02/06/2021, 04/04/2020 Pneumococcal vaccine <65 Aged Out No longer eligible based on patient's age to complete this topic Medical Devices Implanted Type Area Research Programmer Device Identifier Shelf Expiration Date Model / Serial / Lot Titanium Plates N/A: Neck Musculoskeletal Transplant [id number] Frozen Spine 7d Lordotic Trapezoid Spacer Allograft - [id number] - [id number] Implanted:Qty: 1 on 02/16/2019 by Gabriel Horner MD at [facility] N/A: Spine Cervical Musculoskeletal Transplant 11/13/2022 [id number] / [id number] / [employer] [id number] Maxan 10mm Level 1 Spine Cervical Anterior Plate Bone Titanium - [id number] Implanted:Qty: 1 on 02/16/2019 by Gabriel Horner MD at [facility] N/A: Spine Cervical [employer] [id number] / / [employer] [id number] 4mm 16mm Fix Screw Bone - [id number] Implanted:Qty: 4 on 02/16/2019 by Gabriel Horner MD at [facility] N/A: Spine Cervical [employer] [id number] / / Procedures Procedure Name Priority [...] Male Attending MD: Corbin Duque M.D. Room: [facility] ENDOSCOPY ROOM 01 Note Status: Finalized Procedure: [...] The scope was passed under direct vision.The [id number] was introduced through the anusand advanced to [...] Most Recently Relevant to Health Maintenance Insurance [facility] [place] [address] [place] [address] HMO [employer] [facility] Advance Directives For more information, please contact: [phone] * Full Code (Latest Code Status on [...] 9:49 AM 04/04/2020 3:57 PM Care Teams Solar Pv Installer Relationship Specialty Start Date End Date Jayla Phoenix MD [address] [id number] PCP - General 08/07/17
--- OUTSIDE RECORDS SUMMARY | 2024-08-23 08:01 | XMS_ITS | Encounter Summary ---
Author Organization [facility] Address [address] [place] [address] Phone Care Team Providers Care Senior Director Insight Name Role Phone Jayla Phoenix MD Primary Care Provider [phone] Reason for Visit * Reason Onset Date Comments Lab Results 06/16/2024 Encounter Details Date Type Department Care Team (Late st Contact Info) Description 06/16/2024 Documentation [facility] Gastroenterology [address] 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 Results are stable. Faxed to be scanned into chart. documented in this encounter Plan of Treatment Not on file documented as of this encounter Visit Diagnoses Not on filedocumented in this encounter Care Teams Senior Director Insight Relationship Specialty Start Date End Date Jayla Phoenix MD [address] [place] [address] PCP - General 08/07/17 documented as of this encounter
--- OUTSIDE RECORDS SUMMARY | 2024-08-23 08:01 | XMS_ITS | Encounter Summary ---
Author Organization [facility] Address [address] [place] [address] Care Team Providers Care Matrix Supervisor Name Role Phone Jayla Phoenix MD Primary Care Provider [phone] Encounter Details Date Type Department Care Team (Latest Contact Info) Description 09/23/2013 9:14 AM FASHION 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Y PLAN SALES - 09/23/2013 11:59 PM FASHION 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Y PLAN SALES Hospital Encounter [facility] Imaging Services - Radiology [address] [place] [address] Corbin Wood MD [address] [place] [phone] Discharge Disposition: Home or Self Care Social History Tobacco Use Types Packs/Day Years Used Date Smoking Tobacco: Never Assessed Sex and Gender Information Value Date Recorded Sex Assigned at Not on file Gender Identity Not on file Sexual Orientation Not on file documented as of this encounter Plan of Treatment Not on file documented as of this encounter Procedures Procedure Name Priority Date/Time Associated Diagnosis Comments XR ABDOMEN KUB Routine 09/23/2013 9:20 AM FASHION 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Y PLAN SALES Calculus of kidney documented in this encounter Results * XR ABDOMEN 1 VW (09/23/2013 9:20 AM FASHION 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Y PLAN SALES) Anatomical Region Laterality Modality Abdomen Radiographic Tiffany ging 09/23/2013 10:5 8 AM FASHION 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Y PLAN SALES Impressions 09/23/2013 11:15 AM FASHION 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Y PLAN SALES Left ureteral stent, bilateral calculi. Edited by Kely Kebede on 09/23/2013 11:03 AM Narrative 09/23/2013 11:15 AM FASHION 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Y PLAN SALES ABDOMEN KUB ONE VIEW Indication: Abdominal pain. [...] There is no comparison examination. Procedure Note Samantha Jj MD - 09/23/2013 ABDOMEN KUB ONE VIEW [...] AM Corbin Wood MD DIAGNOSTIC IMAGING [facility] documented in this encounter Visit Diagnoses Diagnosis Calculus of kidney documented in this encounter Care Teams Matrix Supervisor Relationship Specialty Start Date End Date Jayla Phoenix MD PCP - General Internal Medicine 09/23/13 documented as of this encounter
--- OUTSIDE RECORDS SUMMARY | 2024-08-23 08:01 | XMS_ITS | Encounter Summary ---
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 [facility] Corbin Duque MD, FACP, FACG, AGAF, JUSTEN, [facility] analysis intern Subjective NAME: Kristian Vasques : 1970 DOS: 07/21/2024 This was a telemedicine visit with Kristian Vasques alone which took place via Real-time video connection (InTouch, Zoom or similar). During the visit, I was located at home and the patient was located home in the [place] [facility] [place] [place]. The patient visit started at 1100 and ended at 1115. My total encounter time on 07/21/2024 was 15 minutes which was spent in the activities documented in the note. This includes time spent prior to the visit and after the visit in direct care of the patient. This time doesnot include time spent in any separately reportable services.. The patient: has been informed that the visit may not be secure and acknowledged the information. The option of participating in a telephone or video visit during the [facility] emergencywas explained to them. After being given an opportunity to ask questions about and discuss this type of visit, they verbally consented to proceeding with the telephone/video visit and understand thatthis service replaces an office visit. Corbin Duque MD Referred here Primary Care Physician: Jayla Phoenix MD Consult requested by: Jayla Phoenix MD Chief Complaint: CD on q 4 geetalara ABDIAZIZ Vaqsues, is a 54 y.o.male who presents for same. Fatigue.Notes one bm/day in general. Notes blood on tp. Hem's. No EIM's. Past Medical History: Diagnosis Date Colon polyp Crohn's disease (CMS/HCC) (HCC) 2000 DDD (degenerative disc disease), cervical Gastric reflux HTN (hypertension) Kidney stone Past Surgical History: Procedure Laterality Date ANTERIOR CERVICAL DISCECTOMY W/ FUSION 2018 hardware removal 02/2019 APPENDECTOMY BOWEL RESECTION 2009 COLONOSCOPY KIDNEY STONE SURGERY 2019 NEPHROSTOGRAM THROUGH EXISTING CATHETER LEFT Left 04/19/2020 Patient Active Problem List Diagnosis Date Noted Crohn's disease of small and large intestines with complication (HCC) 12/21/2020 Overview Note: Added automatically from request for surgery [id number] Hyperoxaluria 12/21/2020 Benign prostatic hyperplasia with urinary frequency 09/13/2020 High risk medications (not anticoagulants) long-term use 05/18/2020 Bilateral nephrolithiasis 04/05/2020 Overview Note: Added automatically from request for surgery [id number] 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 Year symptoms began: [...] immune Covid vaccine: Unknown Assessment & Plan Note: CD doing well. Noted on stelara q 4. No access problems. At this point f/u in 6 mo. Will be due forcolon after that visit. Last colon was 05/11. Cervical disc herniation 02/02/2019 Overview Note: Added automatically from request for surgery [id number] Cervical radiculopathy 02/02/2019 Overview Note: Added automatically from request for surgery [id number] Fusion of spine of cervical region 02/02/2019 Overview Note: Added automatically from request for surgery [id number] Cervical radiculopathy at C7 01/23/2019 Cervical pain (neck) 09/03/2017 Current Outpatient Medications Medication Sig Dispense Refill colestipoL (COLESTID) 1 gram tablet TAKE 2 TABLETS BY MOUTH TWICE A DAY 360 tablet 1 cyanocobalamin, vitamin B-12, 5,000 mcg tablet, sublingual Place 1 tablet under the tongue biofuels production associate before breakfast losartan-hydrochlorothiazide (HYZAAR) 100-25 mg per tablet Take 1 tablet by mouth nightly multivitamin capsule Take 1 capsule by mouth biofuels production associate before breakfast tamsulosin (FLOMAX) 0.4 mg extended release capsule Take 2 capsules (0.8 mg total) by mouth capsule 3 traZODone (DESYREL) 100 mg tablet TAKE 2 TABLETS (100 MG) BY ORAL ROUTE AT BEDTIME ustekinumab (Stelara) injection Inject 1 mL (90 mg total) under the skin every 6 (six) weeks Labs due late 08/2024 1 mL 1 No current facility-administered medications for this visit. Iodinated contrast media Family History Problem Relation Age of Onset Heart attack Father Anesthesia problems Neg Hx Social History Tobacco Use Smoking status: Former Current packs/day: 0.00 Average packs/day: 1.5 packs/day for 9.0 years (13.5 ttl pk-yrs) Types: Cigarettes Start date: 1993 Quit date: 2002 Years since quittin.9 Smokeless tobacco: Never Substance and Sexual Activity Drug use: No Sexual activity: None Alcohol Use: Unknown (05/03/2023) AUDIT-C Frequency of Alcohol Consumption: Monthly or less Average Number of Drinks: 1 or 2 Frequency of Binge Drinking: Not on file ROS Constitutional: Negative. HENT: Negative for sore throat and trouble swallowing. Eyes: Negative. Respiratory: Negative. Cardiovascular: Negative. Gastrointestinal: See HPI Endocrine: Negative. Genitourinary: Negative. Musculoskeletal: Negative. Skin: Negative. Allergic/Immunologic: Negative. Neurological: Negative. Hematological: Negative. Psychiatric/Behavioral: Negative. Breast: Negative. All other systems negative. PHYSICAL EXAM: VITAL SIGNS: Height:6/2 Weight 240 GENERAL: Well-appearing, in no acute distress. HEENT: Head: Normocephalic, Atraumatic EYES: Anicteric, no obvious defect in EOM NECK: Range of motion intact, no obvious thyromegaly. LUNGS: Respirations unlabored, normal respiratory effort, no grunting CARDIOVASCULAR: No obvious edema ABDOMEN: Flat appearing, patient denies palpable areas of tenderness, no grossly visible asymmetry RECTAL: deferred EXTREMITIES: No deformity nor cyanosis. SKIN: No rash or jaundice. NEUROLOGIC: Moves all extremities equally. Cranial Nerves grossly intact. PSYCHIATRIC: Alert and oriented X3, normal insight, memory. Results Results for orders placed or performed during the hospital encounter of 12/21/21 POC ISTAT Collection Time: 12/21/21 10:36 AM Result Value Ref Range Creatinine, POC, bld 1.1 0.6 - 1.3 mg/dL POC Device Number [id number] POC Performer [id number] Assessment/Plan Crohn's disease of both small and large intestine with other complication (HCC) CD doing well. Noted on stelara q 4. No access problems. At this point f/u in 6 mo. Will be due forcolon after that visit. Last colon was 05/11. Orders No orders of the defined types were placed in this encounter. Explained to patient that these recommendations are given taking into account given unique circumstances around evolving COVID-19 pandemic. We are taking into account considerations including patientcontacts, age, underlying medical diseases, travel history, and best estimate regarding acuity of this problem when determining the best time for patient to present live in our clinical setting. Corbin Duque MD, FACP, FACG, AGAF, JUSTEN, FCCF analysis intern [facility] Gastroenterology Division [facility] [address] [place] [address] Academic office [phone] ILLMENT MAIL CLERK documented in this encounter Miscellaneous Notes * Assessment & Plan Note - Corbin Duque MD - 07/21/2024 11:14 AM FULFILLMENT MAIL CLERK Associated Problem(s): Crohn's disease of both small and large intestine with other complication (HCC) CD doing well. Noted on stelara q 4. No access problems. At this point f/u in 6 mo. Will be due forcolon after that visit. Last colon was 05/11. 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
--- OUTSIDE RECORDS SUMMARY | 2024-08-23 08:02 | XMS_ITS | Encounter Summary ---
Author Organization [facility] Address [address] [place] [address] Phone Care Team Providers Care Improvement Coordinator Name Role Phone Jayla Phoenix MD Primary Care Provider [phone] Reason for Visit * Reason Onset Date Comments Med Management 04/25/2023 clenpiq Encounter Details Date Type Department Care Team (Late st Contact Info) Description 04/25/2023 Telephone [facility] Gastroenterology [address] [facility] 12th [place] [address] [place] [address] Thea Hussein Med Management (clenpiq) Social History Tobacco Use Types Packs/Day Years Used Date Smoking Tobacco: Former Cigarettes 1.5 9 1 994 - 2002 Smokeless Tobacco: Never Alcohol Use Standard Drinks/Week Comments Not Currently 0 (1 standard drink = 0.6 oz pur e alcohol) AUDIT-C Answer Date Recorded Q1: How often do you have a drink containing alc ohol? 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 I advised ok to fill as it comes. documented in this encounter Plan of Treatment Not on file documented as of this encounter Visit Diagnoses Not on filedocumented in this encounter Care Teams Improvement Coordinator Relationship Specialty Start Date End Date Jayla Phoenix MD [address] [place] [address] PCP - General 08/07/17 documented as of this encounter
--- OUTSIDE RECORDS SUMMARY | 2024-08-23 08:02 | XMS_ITS | Encounter Summary ---
Author Organization [facility] Address [address] [place] [address] Phone Care Team Providers Care Aba Tutor Name Role Phone Jayla Phoenix MD Primary Care Provider [phone] Encounter Details Date Type Department Care Team (Late st Contact Info) Description 11/28/2022 Orders Only [facility] Gastroenterology [address] [facility] 12th [place] [address] [place] [address] Corbin Duque MD [address] [place] [address] Social History Tobacco Use Types Packs/Day Years [...] on file 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 Gender Identity Male 02/04/2019 10:52 AM CDT Sexual Orientation Straight 02/04/2019 10 :52 AM CDT documented as of this encounter Ordered Prescriptions Prescription Sig Dispense Quantity Refills Last Filled Start Date End Date colesevelam (WELCHOL) 625 mg tablet Take 3 tablets (1,875 mg total) by mouth 2 (two) times a day with meals 180 tablet 11 11/28/2022 3 documented in this encounter Plan of Treatment Not on file documented as of this encounter Visit Diagnoses Not on filedocumented in this encounter Discontinued Medications Medication Sig Discontinue Reason Start Date End Da te colestipoL (COLESTID) 1 gram tablet TAKE 2 TABLETS BY MOUTH 2 TIMES A DAY. 09/19/2022 11/28/2022 documented as of this encounter Care Teams Aba Tutor Relationship Specialty Start Date End Date Jayla Phoenix MD [address] [place] [address] PCP - General 08/07/17 documented as of this encounter
--- OUTSIDE RECORDS SUMMARY | 2024-08-23 08:02 | XMS_ITS | Encounter Summary ---
Author Organization 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) (Primary Dx); High risk medications (not anticoagulants) long-term use Social History Tobacco Use Types Packs/Day Years [...] on file 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 Gender Identity Male 02/04/2019 10:52 AM CDT Sexual Orientation Straight 02/04/2019 10 :52 AM CDT documented as of this encounter Ordered Prescriptions Prescription Sig Dispense Quantity Refills Last Filled Start Date End Date ustekinumab (STELARA) injectionIndicatio ns:Crohn's Disease Inject 1 mL (90 mg total) under the skin every 8 (eight) weeks 1 mL 09/04/2023 11/06/2023 documented in this encounter Plan of Treatment Scheduled Orders Name Type Priority Associated Diagnoses Orde r Schedule CBC with auto differential Lab Routine 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) High risk medications (not anticoagulants) long-term use Expected: 09/04/2023, Expires: 09/04/2024 Comprehensive metabolic panel Lab Routine 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) High risk medications (not anticoagulants) long-term use Expected: 09/04/2023, Expires: 09/04/2024 CRP (acute phase) Lab Routine 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) High risk medications (not anticoagulants) long-term use Expected: 09/04/2023, Expires: 09/04/2024 documented as of this encounter Visit Diagnoses Diagnosis 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)- Primary High risk medications (not anticoagulants) long-term use Encounter for long-term (current) use of other medications documented in this encounter Discontinued Medications Medication Sig Discontinue Reason Start Date End Da te ustekinumab (STELARA) injectionIndications:Quarry Plant Crusher Operator hn's Disease Inject 1 mL (90 mg total) under the skin every 8 (eight) weeks Reorder 04/17/2023 09/04/2023 documented as of this encounter Care Teams Security And Compliance Analyst Relationship Specialty Start Date End Date Jayla Phoenix MD [address] [place] [id number] PCP - General 08/07/17 documented as of this encounter
--- OUTSIDE RECORDS SUMMARY | 2024-08-23 08:02 | XMS_ITS | Encounter Summary ---
Author Organization [facility] Address [address] [place] [address] Phone Care Team Providers Care Shade Cutter Name Role Phone Jayla Phoenix MD Primary Care Provider [phone] Reason for Visit * Reason Onset Date Comments Lab Results 10/26/2023 Encounter Details Date Type Department Care Team (Late st Contact Info) Description 10/26/2023 Documentation [facility] Gastroenterology [address] [facility] Medicine 12th [place] [address] [place] [address] Michelle Hazel, electric fan assembler Results Social History Tobacco Use Types Packs/Day [...] on file 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
--- OUTSIDE RECORDS SUMMARY | 2024-08-23 08:02 | XMS_ITS | Encounter Summary ---
Author Organization [facility] Address [address] [place] [address] Phone Care Team Providers Care Public Relations Name Role Phone Jayla Phoenix MD Primary Care Provider [phone] Reason for Visit * Reason Onset Date Comments Prior Auth 10/09/2023 [place] Encounter Details Date Type Department Care Team (Late st Contact Info) Description 10/09/2023 Telephone [facility] Gastroenterology [address] [facility] Medical Office Building [address] [place] [address] Corbin Duque MD [address] [place] [address] Prior Auth ([place]) Social History Tobacco Use Types Packs/Day Years [...] on file 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 Gender Identity Male 02/04/2019 10:52 AM CDT Sexual Orientation Straight 02/04/2019 10 :52 AM CDT documented as of this encounter Ordered Prescriptions Prescription Sig Dispense Quantity Refills Last Filled Start Date End Date ustekinumab (STELARA) injectionIndicatio ns:Crohn's Disease Inject 1 mL (90 mg total) under the skin every 4 (four) weeks 1 mL 2 11/06/2023 01/10/2024 documented in this encounter Miscellaneous Notes * Telephone Encounter - Thea Hussein - 11/06/2023 1:05 PM CDT E-script for Stelara 90mg/ml Syringes qty 1 per 28 days with 2 additional fills sent to [facility] today. Pt notified via Total-traxt. * Telephone Encounter - Billy Mccann BS - 11/06/2023 12:40 PM CDT ustekinumab (STELARA) injection [facility] [employer] Status: Approved Case: 24 - [id number] Effective Dates: 10/29/2023 - 10/28/2024 * Telephone Encounter - Thea Hussein - 10/25/2023 9:39 AM INSPECTOR AND HAND PACKAGER Called [facility] [phone] to check status of appeal case #[id number] for Q4W dosing Stelara. Spoke to Enrike Y - call reference # [id number] - Appeal is currently pending; due date for decision is 11/07/23. ECTOR AND HAND PACKAGER * Telephone Encounter - Amanda Mckeon - 10/16/2023 4:56 PM CST Appeal faxed to plan 10/16/2023 Stelara Status: pending [employer] [phone] Called and spoke to Brina with plan and appeal is pending Case # [id number] Call ref # [id number] ECTOR AND HAND PACKAGER ECTOR AND HAND PACKAGER * Telephone Encounter - Amanda Mckeon - 10/09/2023 10:57 AM INSPECTOR AND HAND PACKAGER Stelara 90MG/ML syringes Status: denied [employer] Called and spoke to Dale with the plan and increased dosage has been denied Auth# [id number] If you would like to appeal please write a LMN and send back to the PA team to complete appeal. ECTOR AND HAND PACKAGER ECTOR AND HAND PACKAGER * Telephone Encounter - Michelle Hazel RN - 10/09/2023 10:46 AM CST Stelara every 4 weeks ECTOR AND HAND PACKAGER documented in this encounter Plan of Treatment Not on file documented as of this encounter Visit Diagnoses Diagnosis Crohn's disease of small and large intestines with complication (HCC)- Primary documented in this encounter Discontinued Medications Medication Sig Discontinue Reason Start Date End Da te ustekinumab (STELARA) injectionIndications:Topographic Computator hn's Disease Inject 1 mL (90 mg total) under the skin every 8 (eight) weeks Dose adjustment 09/04/2023 11/06/2023 documented as of this encounter Care Teams Public Relations Relationship Specialty Start Date End Date Jayla Phoenix MD [address] [place] [address] PCP - General 08/07/17 documented as of this encounter
--- OUTSIDE RECORDS SUMMARY | 2024-08-23 08:02 | XMS_ITS | Encounter Summary ---
Author Organization [facility] Address [address] [facility] [address] [place] [address] Phone Care Team Providers Care Stock Control Clerk Name Role Phone Jayla Phoenix MD Primary Care Provider [phone] Reason for Referral * Diagnostic Imaging (Routine) - Closed Specialty Diagnoses / Procedures Referred By Elina senior Referred To Contact Diagnoses Nephrolithiasis Procedures US Kidney Complete Hipolito Reyes MD Phone: tel: fax: [address] [address] Referral ID Status Reason Start Date Expiration Date Visits Re quested Visits Authorized [id number] Closed 08/30/2023 09/28/2024 1 1 DATABASE DEVELOPER Reason for Visit * Reason Comments Nephrolithiasis * Consultation (Routine) - Closed Specialty Diagnoses / Procedures Referred By Elina senior Referred To Contact Urology Diagnoses Nephrolithiasis Benign prostatic hyperplasia with urinary frequency Jayla Phoenix MD [address] [place] [address] Phone: tel: fax: [facility] (All Locations) Referral ID Status Reason Start Date Expiration Date V isits Requested Visits Authorized [id number] Closed Specialty Services Required 04/04/2023 05/03/2024 99 99 Encounter Details Date Type Department Care Team (Late st Contact Info) Description 08/30/2023 10:20 AM 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 Gender Identity Male 02/04/2019 10:52 AM CDT Sexual Orientation Straight 02/04/2019 10 :52 AM CDT documented as of this encounter Ordered Prescriptions Prescription Sig Dispense Quantity Refills Last Filled Start Date End Date tamsulosin (FLOMAX) 0.4 mg extended release capsuleIndications :Nephrolithiasis Take 2 capsules (0.8 mg total) by mouth nightly 180 capsule 3 08/30/2023 4 tamsulosin (FLOMAX) 0.4 mg extended release capsuleIndications :Nephrolithiasis Take 2 capsules (0.8 mg total) by mouth nightly 180 capsule 08/30/2023 4 documented in this encounter Progress Notes * Hipolito Reyes MD - 08/30/2023 10:20 AM CST Assessment: Kristian Vasques is a 53 y.o. male with the following diagnoses: (N20.0) Nephrolithiasis (primary encounter diagnosis) Plan: Ambulatory referral to Urology, tamsulosin (FLOMAX) 0.4 mg extended release capsule (N40.1, R35.0) Benign prostatic hyperplasia with urinary frequency Plan: Ambulatory referral to Urology, Measure post void residual, POCT urinalysis dipstick Plan: Follow up in 6 months with renal ultrasound. He would prefer to observe stones and avoid a ureteralstent. Continue tamsulosin 0.8 mg nightly. Orders: Orders Placed This Encounter Measure post void residual Order Specific Question: Where should this order be performed? Answer: [facility] (All Locations) [167] POCT urinalysis dipstick DISCONTD: tamsulosin (FLOMAX) 0.4 mg extended release capsule Sig: Take 2 capsules (0.8 mg total) by mouth nightly Dispense: 180 capsule Refill: 0 Patient will need to keep follow up appointment for future refills tamsulosin (FLOMAX) 0.4 mg extended release capsule Sig: Take 2 capsules (0.8 mg total) by mouth nightly Dispense: 180 capsule Refill: 3 Patient will need to keep follow up appointment for future refills Chief Complaint: Chief Complaint Patient presents with Nephrolithiasis History of Present Illness: Kristian Vasques is a 53 y.o. male with hx of nephrolithiasis who returns for followup. No stone symptoms or stone passage. He also has LUTS for which he takes tamsulosin 0.8 mg nightly and feels like this is helping him void very satisfactorily. Good stream. Symptom scores reviewed by me and scanned into chart. Measurement of post-voiding residual urine and/or bladder capacity by ultrasound, non-imaging. PVR = 31 mL The patient's past medical, surgical, medication, allergy, [...] TABLETS BY MOUTH 2 TIMES A DAY. 360 tablet 1 cyanocobalamin, vitamin B-12, 5,000 mcg tablet, sublingual Place 1 tablet under the tongue [place] before breakfast losartan-hydrochlorothiazide (HYZAAR) 100-25 mg per tablet Take 1 tablet by mouth nightly multivitamin capsule Take 1 capsule by mouth [place] before breakfast sod picosulf-mag ox-citric ac (Clenpiq) 10 mg-3.5 gram- 12 gram/160 mL solution Take 1 Bottle by mouth every 6 (six) hours Follow bowel prep instructions provided 320 mL 0 tamsulosin (FLOMAX) 0.4 mg extended release capsule Take 2 capsules (0.8 mg total) by mouth [id number] capsule 3 traZODone (DESYREL) 100 mg tablet TAKE 2 TABLETS (100 MG) BY ORAL ROUTE AT BEDTIME ustekinumab (STELARA) injection Inject 1 mL (90 mg total) under the skin every 8 (eight) weeks 1 mL1 No current facility-administered medications for this visit. The patient is allergic to: Allergies Allergen Reactions Iodinated Contrast Media Rash The patient's past family history is notable for: Family History Problem Relation Age of Onset Heart attack Father Anesthesia problems Neg Hx The patient's past social history is notable for: Social History Tobacco Use Smoking status: Former Packs/day: 1.5 Types: Cigarettes Start date: 1993 Quit date: 2002 Years since quittin.0 Smokeless tobacco: Never Substance and Sexual Activity [...] studies and my findings were: Renal ultrasound 11-15-2022 shows bilateral kidney stones of similar size compared to his December 2021 imaging series. I do not see any hydronephrosis. US Kidney Complete Narrative: EXAMINATION: COMPLETE RENAL SONOGRAM HISTORY: 52-year-old male with nephrolithiasis and Crohn's disease. COMPARISON: Comparison ultrasound from 12/18/2021. FINDINGS: Kidneys: The echogenicity of both kidneys is normal. The kidneys are normal in size. The right kidney measures 11.6 cm in length, and the left, 10.2 cm in length. There is no hydronephrosis in either kidney. There is a stable 9 mm & 1.3 cm stone in the upper pole of the right kidney and interpolar region of the left kidney. A milk of calcium cyst and stable lower pole caliceal dilation, the latter which is better appreciated on the interval MRI. Bladder: The urinary bladder is normal with bilateral renal jets are seen Impression: 1. Unchanged bilateral nonobstructing renal calculi. No hydronephrosis. Dictated by: Avni Berumen M.D. The radiology attending physician has personally reviewed this study, and had reviewed and/or edited this written report and agrees with it. Electronically signed by: Evangelista Vallejo M.D. Thank you for allowing us to participate in the care of this patient. Please do not hesitate to contact us should you have any questions or concerns at [phone]. DATABASE DEVELOPER documented in this encounter Plan of Treatment Not on file documented as of this encounter Procedures Procedure Name Priority Date/Time Associated Diagnosis Comments MEASURE POST VOID RESIDUAL Routine 08/30/2023 Benign prostatic hyperplasia with urinary frequency documented in this encounter Results * US [...] by: Katt Escalante M.D. Hipolito Reyes MD IMG US PROCEDURES F inal Result * Measure post void residual (08/30/2023) Narrative Inocencio Browning BS - 08/30/2023 Measurement of post-voiding residual urine and/or bladder capacity by ultrasound, non-imaging. ??PVR = 31 Hipolito Reyes MD NURSING ASSESSMENTS Final Result documented in this encounter Visit Diagnoses Diagnosis Nephrolithiasis- Primary Calculus of kidney Benign prostatic hyperplasia with urinary frequency Nephrolithiasis Calculus of kidney documented in this encounter Discontinued Medications Medication Sig Discontinue Reason Start Date End Da te tamsulosin (FLOMAX) 0.4 mg extended release capsuleIndications:Neph rolithiasis Take 2 capsules (0.8 mg total) by mouth nightly Reorder 07/09/2023 08/30/2023 tamsulosin (FLOMAX) 0.4 mg extended release capsuleIndications:Neph rolithiasis Take 2 capsules (0.8 mg total) by mouth nightly Reorder 08/30/2023 08/30/2023 documented as of this encounter Orders Outpatient Referral Count Last Ordered Date Fir st Ordered Date AMB REFERRAL TO UROLOGY 1 08/30/2023 documented in this encounter Care Teams Stock Control Clerk Relationship Specialty Start Date End Date Jayla Phoenix MD [address] [place] [address] PCP - General 08/07/17 documented as of this encounter
--- OUTSIDE RECORDS SUMMARY | 2024-08-23 08:02 | XMS_ITS | Encounter Summary ---
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) 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) [K50.813] Procedures MS COLONOSCOPY W/BIOPSY SINGLE/MULTIPLE COLONOSCOPY with NBI Referral ID Status Reason Start Date Expiration Date Visits Re quested Visits Authorized [id number] 1 1 Encounter Details Date Type Department Care Team (Latest Contact Info) Description 05/03/2023 9:46 AM CDT - 05/03/2023 11:49 AM CDT Hospital Encounter [facility] [id number] [address] [place] [address] Corbin Duque MD [address] [place] [address] 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) Discharge Disposition: Discharge to home or self [...] on file 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 Gender Identity Male 02/04/2019 10:52 AM CDT Sexual Orientation Straight 02/04/2019 10 :52 AM CDT documented as of this encounter Last Filed Vital Signs Vital Sign Reading Time Taken Comments Blood Pressure 110/73 05/03/2023 11:40 AM CDT Pulse 69 05/03/2023 11:40 AM CDT Temperature 36.3 ??C (97.3 ??F) 05/03/2023 9:55 AM CD T Respiratory Rate 27 05/03/2023 11:40 AM CDT Oxygen Saturation 92% 05/03/2023 11:40 AM CDT Inhaled Oxygen Concentration - - Weight 104.3 kg (230 lb) 05/03/2023 9:55 AM CDT Height 188 cm (6' 2 ) 05/03/2023 9:55 AM CDT Body Mass Index 29.53 05/03/2023 9:55 AM CDT documented in this encounter Medications at Time of Discharge cyanocobalamin, vitamin B-12, 5,000 mcg tablet, sublingualIndica tions:Prevention of Vitamin B12 Deficiency Place 1 tablet under the tongue masticator before breakfast losartan-hydroch lorothiazide (HYZAAR) 100-25 mg per tabletIndication s:hypertension Take 1 tablet by mouth nightly 02/23/2019 multivitamin capsuleIndicatio ns:Vitamin Deficiency Prevention Take 1 capsule by mouth masticator before breakfast traZODone (DESYREL) 100 mg tablet TAKE 2 TABLETS (100 MG) BY ORAL ROUTE AT BEDTIME 08/20/2022 colestipoL (COLESTID) 1 gram tablet Take 2 tablets (2 g total) by mouth 2 (two) times a day 360 tablet 1 12/07/2022 3 sod picosulf-mag ox-citric ac (Clenpiq) 10 mg-3.5 gram- 12 gram/160 mL solutionIndicati ons:Bowel Evacuation Take 1 Bottle by mouth every 6 (six) hours Follow bowel prep instructions provided 320 mL 04/19/2023 4 tamsulosin (FLOMAX) 0.4 mg extended release capsuleIndicatio ns:Nephrolithias is Take 2 capsules (0.8 mg total) by mouth nightly 180 capsule 04/09/2023 3 ustekinumab (STELARA) injectionIndicat ions:Crohn's Disease Inject 1 mL (90 mg total) under the skin every 8 (eight) weeks 1 mL 1 04/17/2023 4 documented as of this encounter Discharge Disposition Disposition Code Departure Means Destination Comment s Discharge to home or self care documented in this encounter H&P Notes * Corbin Duque MD - 05/03/2023 10:44 AM CDT Pre Endoscopy History and Physical Zoey Joseph is a 52 y.o. male who is here for Procedure(s): COLONOSCOPY with NBI The indication(s) for the procedure(s): Crohn's disease. Past Medical History: Diagnosis Date Colon polyp Crohn's disease (CMS/HCC) (HCC) 2000 DDD (degenerative disc disease), cervical Gastric reflux HTN (hypertension) Kidney stone Past Surgical History: Procedure Laterality Date ANTERIOR CERVICAL DISCECTOMY W/ FUSION 2017 hardware removal 02/2019 APPENDECTOMY BOWEL RESECTION 2008 COLONOSCOPY KIDNEY STONE SURGERY 2019 NEPHROSTOGRAM THROUGH EXISTING CATHETER LEFT Left 04/19/2020 Social History Tobacco Use Smoking status: Former Packs/day: 1.5 Types: Cigarettes Start date: 1993 Quit date: 2002 Years since quittin.7 Smokeless tobacco: Never Substance and Sexual Activity Drug use: No Sexual activity: None Alcohol Use: Unknown (05/03/2023) AUDIT-C Frequency of Alcohol Consumption: Monthly or less Average Number of Drinks: 1 or 2 Frequency of Binge Drinking: Not on file Family History Problem Relation Age of Onset Heart attack Father Anesthesia problems Neg Hx Iodinated contrast media Prior to Admission medications Medication Sig Start Date End Date Taking? Authorizing Provider colestipoL (COLESTID) 1 gram tablet Take 2 tablets (2 g total) by mouth 2 (two) times a day 12/07/22Yes Corbin Duque MD cyanocobalamin, vitamin B-12, 5,000 mcg tablet, sublingual Place 1 tablet under the tongue masticator before breakfast Yes Rajeev Dee MD losartan-hydrochlorothiazide (HYZAAR) 100-25 mg per tablet Take 1 tablet by mouth nightly 02/23/19 Yes Rajeev Dee MD multivitamin capsule Take 1 capsule by mouth masticator before breakfast Yes Rajeev Dee MD sod picosulf-mag ox-citric ac (Clenpiq) 10 mg-3.5 gram- 12 gram/160 mL solution Take 1 Bottle by mouth every 6 (six) hours Follow bowel prep instructions provided 04/19/23 Yes Corbin Duque MD tamsulosin (FLOMAX) 0.4 mg extended release capsule Take 2 capsules (0.8 mg total) by mouth nightly04/09/23 Yes Hipolito Reyes MD traZODone (DESYREL) 100 mg tablet TAKE 2 TABLETS (100 MG) BY ORAL ROUTE AT BEDTIME 08/20/22 Yes Rajeev Dee MD ustekinumab (STELARA) injection Inject 1 mL (90 mg total) under the skin every 8 (eight) weeks 04/17/23 Yes Corbin Duque MD Review of Systems A pertinent, focused review of systems was completed and negative, except as noted above. OBJECTIVE: Vitals: Vitals: 05/03/23 0955 05/03/23 1005 05/03/23 1015 05/03/23 1030 BP: 123/84 118/81 119/83 Pulse: 80 79 80 Resp: 18 20 20 Temp: 36.3 ??C (97.3 ??F) TempSrc: Temporal SpO2: 95% 96% 96% Weight: 104.3 kg (230 lb) Height: 188 cm (6' 2 ) Physical Exam: Airway: No significant abnormality. Cardiac: No significant abnormality. Pulmonary: No significant abnormality. Neurological: No significant abnormality. Gastrointestinal: No significant abnormality. ASA Score: per Anesthesia Sedation/Anesthesia Plan: per Anesthesia The risks and complications of the procedure have been explained to the patient. Informed consent was signed. Impression and plan: Will proceed with the planned procedure for the reasons stated above. documented in this encounter Procedure Notes * Corbin Duque MD - 05/03/2023 10:45 AM CDTAssociated Order(s): COLONOSCOPY ENDOSCOPY LAB Patient Name: Zoey Joseph Procedure Date: 05/03/2023 10:45 AM Date of : 1970 Admit Type: Outpatient Age: 52 Gender: Male Attending MD: Corbin Duque M.D. Room: [facility] ENDOSCOPY ROOM 01 Note Status: Finalized Procedure: Colonoscopy Indications: Follow-up of Crohn's disease of the small bowel and colon Providers: Corbin Duque M.D., Marli Guzman M.D. (Fellow) Referring MD: Jayla Phoenix MD Medicines: Monitored Anesthesia Care Complications: No immediate complications. Estimated Blood Loss: Estimated blood loss was minimal. Procedure: Pre-Anesthesia Assessment: - Prior to the procedure, a History and Physical was performed, and patient medications and allergies were reviewed. The patient is competent. The risks and benefits of the procedure and the sedation options and risks were discussed with the patient. All questions were answered and informed consent was obtained. Patient identification and proposed procedure were verified by the physician in the pre-procedure area. Mental Status Examination: alert and oriented. Airway Examination: normal oropharyngeal airway and neck mobility. Respiratory Examination: clear to auscultation. CV Examination: normal. Prophylactic Antibiotics: The patient does not require prophylactic antibiotics. Prior Anticoagulants: The patient has taken no anticoagulant or antiplatelet agents. ASA Grade Assessment: II - A patient with mild systemic disease. After reviewing the risks and benefits, the patient was deemed in satisfactory condition to undergo the procedure. The anesthesia plan was to use monitored anesthesia care (MAC). Immediately prior to administration of medications, the patient was re-assessed for adequacy to receive sedatives. The heart rate, respiratory rate, oxygen saturations, blood pressure, adequacy of pulmonary ventilation, and response to care were monitored throughout the procedure. The physical status of the patient was re-assessed after the procedure. The benefits, risks and alternatives of the procedure and sedation were discussed and informed consent was obtained. All questions were answered. Please refer to the signed informed consent document in the medical record. The scope was passed under direct vision. The [id number] was introduced through the anus and advanced to 15 cm into the ileum. The colonoscopy was performed without difficulty. The patient tolerated the procedure well. The quality of the bowel preparation was good. Anatomical landmarks were photographed. Bowel prep was administered using a split dose. Findings: The perianal and digital rectal examinations were normal. The terminal ileum contained a few localized non-bleeding erosions. The Simple Endoscopic Score for Crohn's Disease was determined based on the endoscopic appearance of the mucosa in the following segments: - Ileum: Findings include aphthous ulcers less than 0.5 cm in size, less than 10% ulcerated surfaces, less than 50% of surfaces affected and no narrowings. Segment score: 3. - Right Colon: [...] Electronically signed by Corbin Duque MD Corbin Duuqe M.D. 05/03/2023 11:23:58 AM Marli Guzman M.D. Number of Addenda: 0 Note Initiated On: 05/03/2023 10:45 AM documented in this encounter Miscellaneous Notes * Result Encounter Note - Corbin Duque MD - 05/03/2023 11:49 AM CDT Focal active ileitis and proctitis noted. Discuss at f/up appointment whether need for change or not. * Perioperative Nursing Note - Kisha Snyder RN - 05/03/2023 11:43 AM CDT Patient discharged in stable condition with all belongings. Pt verbalized understanding of discharge instructions. documented in this encounter Plan of Treatment Not on file documented as of this encounter Procedures Procedure Name Priority Date/Time Associated Diagnosis Comments SURGICAL PATHOLOGY Routine 05/03/2023 11 :01 AM CDT 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) COLON BIOPSY 05/03/2023 10:46 AM CDT 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) COLONOSCOPY 05/03/2023 10:45 AM CDT documented in this encounter Results * Surgical pathology (05/03/2023 11:01 AM CDT) Tissue (Ileum, Biopsy) 05/03/2023 11:01 AM CDT Tissue (Colon, Biopsy) 05/03/2023 11:03 AM CDT Tissue (Colon, Biopsy) 05/03/2023 11:07 AM CDT Tissue (Colon, Biopsy) 05/03/2023 11:08 AM CDT Narrative PATHOLOGY [facility] - 05/05/2023 3:27 PM CDT EPIC results best viewed via link to PDF [facility] [place] [address] Note to Patients: This report may contain a detailed description of human tissue sent by a health care provider to the laboratory for pathologic evaluation. The content of this report is essential for diagnosis and may provide important critical findings. This information may be unfamiliar to patients to review without a medical professional present. It is advised that the patient review this report in the presence of a health care provider who can answer questions and explain the details. SURGICAL PATHOLOGY REPORT FINAL Patient Name: ?? ZOEY JOSEPH Gender: ??M : ??1970 (Age: 52) Address: ??[address] [place] [address] ??[id number] Hospital #: ??[id number] Taken:05/03/2023 Received:05/03/2023 Reported: 05/05/2023 Patient Type: C EP SAME Client ?[facility] Service: Gastro Location: Physician(s): ??MD Jayla Ambrocio M.D. Diagnosis: A. ??Terminal ileum, biopsy: ? - Small intestinal mucosa with focal active ileitis ? - Foreign material? pill fragment seen impregnated in the small intestinal mucosa ? - No chronic mucosal changes, granulomas or dysplasia B. ??Transverse colon, biopsy: ? - Colonic mucosa, no diagnostic abnormalities are identified ? - No granulomas or dysplasia ?? C. ??Sigmoid colon, biopsy: ? - Colonic mucosa, no diagnostic abnormalities are identified ? - No granulomas or dysplasia ? D. ??Rectum, biopsy: ? - Rectal mucosa with focal active proctitis ? - No chronic mucosal changes, granulomas or dysplasia pona/05/05/2023 15:27 By this signature, I attest that the above diagnosis is based upon my personal examination of the slides(and/or other material indicated in the diagnosis). Susan Hutchinson M.D. Report Electronically Reviewed and Signed Out By ??Susan Hutchinson M.D. 05/05/2023 15:27:02 Microscopic Description and Comment: Microscopic examination substantiates the above cited diagnosis. History: The patient is a 52-year-old man with Crohn's disease of small and large intestine with fistula. ??Operative procedure: Colonoscopy. Specimen(s) Received: A: Terminal ileum B: Transverse colon C: Sigmoid D: Rectum Gross Description: Received in four formalin jars labeled with the patient's identifiers. A. ??Labeled terminal ileum are two irregular tissue fragment(s) (measuring 1.0 x 0.3 x 0.1 cm in aggregate). ?? Labeled A1. Jar 0. B. ??Labeled transverse colon are two irregular tissue fragment(s) (measuring 0.8 x 0.3 x 0.1 cm in aggregate). ?? Labeled B1. Jar 0. C. ??Labeled sigmoid are two irregular tissue fragment(s) (measuring 0.9 x 0.3 x 0.1 cm in aggregate). ?? Labeled C1. Jar 0. D. ??Labeled rectum are multiple irregular tissue fragment(s) (measuring 0.9 x 0.3 x 0.1 cm in aggregate). ?? Labeled D1. Jar 0. ?? [email or web address]/05/03/2023 14:05 PA(s): Louisa Doll, BS, CT (ASCP) By this signature, I attest that the above diagnosis is based upon my personal examination of the slides(and/or other material). Addenda/Procedures Microscopic slide review and interpretation for this case was performed at [facility], Department of Surgical Pathology, [address] [facility] [place], [place] [id number], ??[facility], [place] ??[address] ?? CLIA # [id number] The performance characteristics of some immunohistochemical stains, fluorescence in-situ hybridization tests and immunophenotyping by flow cytometry cited in this report (if any) were determined by the Surgical Pathology and Flow Cytometry Departments at [facility] as part of an ongoing vendor quality supervisor program and in compliance with federally mandated regulations drawn from the Clinical Laboratory Improvement Act of 1988 (CLIA '88). ??Some of these tests rely on the use of analyte specific reagents and are subject to specific labeling requirements by the US Food and Drug Administration. ??Such diagnostic tests may only be performed in a facility that is certified by the Department of Health and Human Services as a high complexity laboratory under CLIA '88. ??The FDA has determined that such clearance or approval is not necessary. ??This test is used for clinical purposes. ??It should not be regarded as investigational or for research. ??Nevertheless, federal rules concerning the medical use of analyte specific reagents require that the following disclaimer be attached to the report: This test was developed and its performance characteristics determined by the Surgical Pathology and Flow Cytometry Departments of [facility]. ??It has not been cleared or approved by the U. S. Food and Drug Administration. IMAGES AND SCANNED DOCUMENTS, IF INCLUDED, ONLY VIEWABLE IN PDF VERSION OF REPORT us Corbin Duque MD LAB PATHOLOGY ORDERABLES Fi nal Result PATHOLOGY [facility] [phone] * COLONOSCOPY (05/03/2023 10:45 AM CDT) Anatomical Region Laterality Modality Other Narrative Procedure Note Corbin Duque MD - 05/03/2023 10:45 AM CDT ENDOSCOPY LAB Patient Name: Zoey Joseph Procedure Date: 05/03/2023 10:45 AM Date of : 1970 Admit Type: Outpatient Age: 52 Gender: Male Attending MD: Corbin Duque M.D. Room: [facility] ENDOSCOPY ROOM 01 Note Status: Finalized Procedure: [...] The scope was passed under direct vision.The [id number] was introduced through the anusand advanced to [...] Corbin Duque MD ENDOSCOPY PROCEDURES Final Result documented in this encounter Visit Diagnoses Diagnosis 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)- Primary documented in this encounter Admitting Diagnoses Diagnosis 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) documented in this encounter Administered Medications Inactive Administered Medications - up to 3 most recent administrations Medication Order MAR Action Action Date Dose Rate Site ondansetron (ZOFRAN) injection 4 mg 4 mg, intravenous, Administer over 2 Minutes, Every 6 hours PRN, nausea, vomiting, Starting on Sat05/03/23 at 1004, Pre-Procedure (GI) Given 05/03/2023 10:26 AM CDT 4 mg sodium chloride 0.9% flush 0.5-20 mL 0.5-20 mL, intra-catheter, As needed, line care, Starting on Sat05/03/23 at 1004, Pre-Procedure (GI), Flush volume based on line type and size. Flush before and after each use. , Indications: FlushingIndications:Flushin g sodium chloride 0.9% infusion 30 mL/hr, intravenous, Continuous, Starting on Sat05/03/23 at 1045, Pre-Procedure (GI) Rate/Dose Verify 05/03/2023 10:46 AM CDT 30 mL/hr New Bag 05/03/2023 10:26 AM CDT 30 mL/hr 30 mL/hr documented in this encounter Active and Recently Administered Medications Times are shown in CDT. Continuous Medication Order 05/01/2023 05/02/2023 05/03/2023 sodium chloride 0.9% infusion 30 mL/hr, intravenous, Continuous, Starting on Sat05/03/23 at 1045, Pre-Procedure (GI) 1026 (New Bag - Prov ider: Mikey Zuniga RN)1046 (Rate/Dose Verify - Provider: Adri Knott CRNA)1112 (Anesthesia Volume Adjustment - Provider: Adri Knott CRNA)1550 (Due: Stopped) PRN Medication Order 05/01/2023 05/02/2023 05/03/2023 ondansetron (ZOFRAN) injection 4 mg 4 mg, intravenous, Administer over 2 Minutes, Every 6 hours PRN, nausea, vomiting, Starting on Sat05/03/23 at 1004, Pre-Procedure (GI) 1026 (Given - Provid er: Mikey Zuniga RN) simethicone (MYLICON) 66.7 mg/mL oral drops (CANCELED) As needed, Starting on Sat05/03/23 at 1059, Intra-Op 1059 (Given - Provid er: Corbin Duque MD) sodium chloride 0.9% flush 0.5-20 mL 0.5-20 mL, intra-catheter, As needed, line care, Starting on Sat05/03/23 at 1004, Pre-Procedure (GI), Flush volume based on line type and size. Flush before and after each use. , Indications: Flushing documented in this encounter Orders Medications Ordered That Buck ht Not Have Been Administered Count Last Ordered Date First Ordered Date simethicone (MYLICON) 66.7 m g/mL oral drops 1 05/03/2023 sodium chloride 0.9% flush 0.5-20 mL 1 04/19 Discharge Count Last Ordered Date First Orde red Date DISCHARGE PATIENT 1 05/03/2023 documented in this encounter Care Teams Product Strategy Director Relationship Specialty Start Date End Date Jayla Phoenix MD [address] [phone] PCP - General 08/07/17 documented as of this encounter
--- OUTSIDE RECORDS SUMMARY | 2024-08-23 08:02 | XMS_ITS | Encounter Summary ---
Author Organization [facility] Address [address] [place] [address] Phone Care Team Providers Care Thrill Performer Name Role Phone Jayla Phoenix MD Primary Care Provider [phone] Encounter Details Date Type Department Care Team (Late st Contact Info) Description 04/17/2023 Orders Only [facility] Gastroenterology [address] [place] [address] Medical Office Building [address] [place] [address] Corbin Duque MD [address] [place] [address] Social History Tobacco Use Types Packs/Day Years [...] on file 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 Gender Identity Male 02/04/2019 10:52 AM CDT Sexual Orientation Straight 02/04/2019 10 :52 AM CDT documented as of this encounter Ordered Prescriptions Prescription Sig Dispense Quantity Refills Last Filled Start Date End Date ustekinumab (STELARA) injectionIndicatio ns:Crohn's Disease Inject 1 mL (90 mg total) under the skin every 8 (eight) weeks 1 mL 1 04/17/2023 09/04/2023 documented in this encounter Plan of Treatment Not on file documented as of this encounter Visit Diagnoses Not on filedocumented in this encounter Discontinued Medications Medication Sig Discontinue Reason Start Date End Da te diphenhydrAMINE (BENADRYL) 25 mg capsuleIndications:sleep Take 25 mg by mouth nightly as needed for itching 04/17/2023 ustekinumab (STELARA) injectionIndications:City Administrator hn's Disease Inject 1 mL (90 mg total) under the skin every 8 (eight) weeks 03/25/2023 04/17/2023 zolpidem (AMBIEN) 5 mg tablet 12/01/2020 04/17/2023 melatonin 5 mg tabletIndications:sleep Take 5 mg by mouth nightly as needed 04/17/2023 documented as of this encounter Care Teams Thrill Performer Relationship Specialty Start Date End Date Jayla Phoenix MD [address] [place] [address] PCP - General 08/07/17 documented as of this encounter
--- OUTSIDE RECORDS SUMMARY | 2024-08-23 08:02 | XMS_ITS | Encounter Summary ---
Author Organization [facility] Healthcare Address [address] [place] [address] Care Team Providers Care Loader Operator Supervisor Name Role Phone Jayla Phoenix MD Primary Care Provider + [phone] Reason for Visit * Auth/Cert (Routine) Specialty Diagnoses / Procedures Referred By Elina t Referred To Contact Diagnoses 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) 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) [K50.813] Procedures [place] COLONOSCOPY W/BIOPSY SINGLE/MULTIPLE COLONOSCOPY with NBI Referral ID Status Reason Start Date Expiration Date Visits Re quested Visits Authorized [id number] 1 1 Encounter Details Date Type Department Care Team ([facility] st Contact Info) Description 05/03/2023 10:46 AM CDT Anesthesia Event [facility] Endoscopy [address] [place] [address] Colton Sanches MD [address] [facility] [address] [place] [address] Anesthesia Record Procedure Summary Procedure Name Responsible Anesthesiologist Anesthesia Start Time Anesthesia Stop Time COLON BIOPSY Colton Sanches MD 05/03/23 1046 1120 Events Date Time Event Comment 05/03/2023 0857 1046 In Room 1046 AN Equip Check 1046 An Start 1046 An Start Data 1050 Start Supplemental O2 1051 Patient Positioned Laterally 1052 An Induction The patient was reevaluated immediately before moderate or deep sedation use and before anesthesia induction. 1053 Anesthesia Ready 1054 Proc Start 1111 Proc Fin 1115 Out of Room 1115 an stop data 1120 Handoff to RN I completed my handoff to the receiving nurse during which we: 1. Patient identified 2. Responsible provider identified 3. Pertinent medical history reviewed 4. Procedure type and surgical course discussed 5. Intraoperative anesthetic management and any significant issues discussed 6. Expectations and concerns for postop period discussed 7. Questions solicited from receiving nurse 8. Patient disposition at the time of handoff: No value filed. 1120 An Stop Meds Name Total propofol 340 mg Lidocaine IV 2 % 5 mL sodium chloride 0.9% infusion 800 mL * Agents Name O2 N2O Air * Blood No blood administrations on file. Lines, Drains, and Airways Type Details Placement Removal Ureteral Drain/Stent 04/12/20; 1500; Lef t ureter; 5 Fr.; No 04/12/20 1500 by Nataliia Bone RN Nephrostomy 04/14/20; 1210; Left ; 8.5 Fr.; Yes 04/14/20 1210 by Nazanin Doyle RNFA Peripheral IV Placement Date: 02/06/21; Placement Time: 0831; Catheter Size: 20 G; Orientation: Right; Location: Hand; Site Prep: Chlorhexidine; Inserted by: sakshi aburto rn; Insertion Attempts: 1 02/06/21 0831 by Sakshi Rosen RN RETIRED Surgical Site 04/16/20; 0822; No ; Left; Back; left nephrostomy tube; 07/21/24 (Retired LDA, Removed/Completed by Novelo with LDA Utility); 1213 (Retired LDA, Removed/Completed by Novelo with LDA Utility) 04/16/20 0822 by Ernestine Graham RN 07/21/24 1213 by Discharge Provider, Automatic Peripheral IV Placement Date: 05/03/23; Placement Time: 1025; Catheter Size: 22 G; Orientation: Posterior, Right; Location: Hand; Site Prep: Chlorhexidine; Technique: Anatomical landmarks; Insertion Attempts: 1; Patient Tolerance: Tolerated well; Removal Date: 05/03/23; Removal Time: 1128 05/03/23 1025 by Mikey Zuniga RN 05/03/23 1128 by Kisha Buitrago RN documented in this encounter Social History Tobacco Use Types Packs/Day Years [...] on file 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 Gender Identity Male 02/04/2019 10:52 AM CDT Sexual Orientation Straight 02/04/2019 10 :52 AM CDT documented as of this encounter OR Notes * Anesthesia Postprocedure Evaluation - Colton Sanches MD - 05/05/2023 2:42 PM CDT Patient: Kristian Vasques Procedure Summary Date: 05/03/23 Room / Location: [facility] ENDOSCOPY ROOM 01 / [facility] END[facility]COPY Anesthesia Start: 1046 Anesthesia Stop: 1120 Procedure: COLON BIOPSY Diagnosis: 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) (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) [K50.813]) Providers: Corbin Duque MD Responsible Provider: Colton Sanches MD Anesthesia Type: general ASA Status: 2 Anesthesia Type: general Last vitals BP 110/73 Pulse 69 Temp 36.3 ??C (97.3 ??F) (Temporal) Resp 27 SpO2 92% Anesthesia Post Evaluation Patient location during evaluation: PACU Patient participation: complete - patient participated Level of consciousness: fully awake Pain score: 0 Pain management: adequate Airway patency: adequate Evidence of recall: no Cardiovascular status: hemodynamically stable and acceptable Respiratory status: acceptable and room air Hydration status: acceptable Pt is: normothermic Nausea/Vomiting status: none No notable events documented. * Anesthesia Preprocedure Evaluation - Colton Sanches MD - 05/03/2023 10:19 AM CDT Images from the original note were not included. Anesthesia Evaluation Kristian Vasques is a 52 y.o. 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) Bilateral nephrolithiasis High risk medications (not anticoagulants) long-term use Benign prostatic hyperplasia with urinary frequency Crohn's disease of small and large intestines with complication (HCC) Hyperoxaluria Past Medical History: Diagnosis Date Colon polyp Crohn's disease (CMS/HCC) (HCC) 2000 DDD (degenerative disc disease), cervical Gastric reflux HTN (hypertension) Kidney stone Past Surgical History: Procedure Laterality Date ANTERIOR CERVICAL DISCECTOMY W/ FUSION 2017 hardware removal 02/2019 APPENDECTOMY BOWEL RESECTION 2008 COLONOSCOPY KIDNEY STONE SURGERY 2019 NEPHROSTOGRAM THROUGH EXISTING CATHETER LEFT Left 04/19/2020 Allergies Allergen Reactions Iodinated Contrast Media Rash Taking? Last Dose Start Date End Date Provider colestipoL (COLESTID) 1 gram tablet 05/02/2023 12/07/22 -- Corbin Duque MD Take 2 tablets (2 g total) by mouth 2 (two) times a day cyanocobalamin, vitamin B-12, 5,000 mcg tablet, sublingual 05/02/2023 -- -- Rajeev Dee MD losartan-hydrochlorothiazide (HYZAAR) 100-25 mg per tablet 05/03/2023 02/23/19 -- Rajeev Dee MD multivitamin capsule 05/02/2023 -- -- Rajeev Dee MD sod picosulf-mag ox-citric ac (Clenpiq) 10 mg-3.5 gram- 12 gram/160 mL solution 05/03/2023 04/19/23 -- Corbin Duque MD Take 1 Bottle by mouth every 6 (six) hours Follow bowel prep instructions provided Notes: RxBIN: [id number] RxPCN: [id number] RxGrp: [id number] RX ID: [id number] Grp Name: CRUZ Static $40 NATIONAL tamsulosin (FLOMAX) 0.4 mg extended release capsule 05/02/2023 04/09/23 -- [place] MD Take 2 capsules (0.8 mg total) by mouth nightly Notes: Patient will need to keep follow up appointment for future refills traZODone (DESYREL) 100 mg tablet 05/02/2023 08/20/22 -- Provider, MD Rajeev ustekinumab (STELARA) injection Past Month 04/17/23 -- Corbin Duque MD Inject 1 mL (90 mg total) under the skin every 8 (eight) weeks Current Facility-Administered Medications: ondansetron (ZOFRAN) injection 4 mg, 4 mg, intravenous, Q6H PRN sodium chloride 0.9% flush 0.5-20 mL, 0.5-20 mL, intra-catheter, PRN sodium chloride 0.9% infusion, 30 mL/hr, intravenous, Continuous Social History Tobacco Use Smoking Status Former Packs/day: 1.5 Types: Cigarettes Start date: 1993 Quit date: 2002 Years since quittin.7 Smokeless Tobacco Never Alcohol Use: Unknown (05/03/2023) AUDIT-C Frequency of Alcohol Consumption: Monthly or less Average Number of Drinks: 1 or 2 Frequency of Binge Drinking: Not on file Substance and Sexual Activity Drug Use No Family History Problem Relation Age of Onset Heart attack Father Anesthesia problems Neg Hx Vitals: 05/03/23 0955 Temp: 36.3 ??C (97.3 ??F) PT: No results found for requested labs within last 30 days. INR: No results found for requested labs within last 30 days. APTT: No results found for requested labs within last 30 days. Hgb A1C: No results found for requested labs within last 30 days. CBC RBC: No results found for requested labs within last 30 days. RDW: No results found for requested labs within last 30 days. MCHC: No results found for requested labs within last 30 days. MCH: No results found for requested labs within last 30 days. MCV: No results found for requested labs within last 30 days. Hct: No results found for requested labs within last 30 days. Hgb: No results found for requested labs within last 30 days. WBC: No results found for requested labs within last 30 days. MPV: No results found for requested labs within last 30 days. Platelets: No results found for requested labs within last 30 days. RDW CV: No results found for requested labs within last 30 days. RDW Sd: No results found for requested labs within last 30 days. BMP Glucose: No results found for requested labs within last 30 days. Calcium: No results found for requested labs within last 30 days. Sodium: No results found for requested labs within last 30 days. Potassium: No results found for requested labs within last 30 days. CO2: No results found for requested labs within last 30 days. Chloride: No results found for requested labs within last 30 days. BUN: No results found for requested labs within last 30 days. Creatinine: No results found for requested labs within last 30 days. STOP-Bang Total Score: 3 DOS Physical Exam Medical history, medications, and allergies reviewed. Attestation: This PAT evaluation Airway Exam: Mallampati: III Cervical ROM: FROM Cardiovascular Exam: Rate: regular Rhythm: regular Pulmonary Exam: LCTA, bilat Anesthesia Plan ASA 2 My patient is approved for the Anesthesia Controlled Medication protocol when under care of a WOOD PANEL INSPECTOR Planned anesthesia: General Informed Consent: Anesthesia plan and risks discussed with patient. Consent and Attending signature: I and/or my designee have discussed the anesthesia plan, benefits, possible alternatives, parental presence at time of induction (if indicated), and clinically relevant risks that may include dental injury, unintentional awareness, and/or other complications. The patient and/or parent/legal guardian understand, and agree to proceed. All questions answered. documented in this encounter Plan of Treatment Not on file documented as of this encounter Visit Diagnoses Not on filedocumented in this encounter Administered Medications Inactive Administered Medications - up to 3 most recent administrations Medication Order MAR Action Action Date Dose Rate Site lidocaine (XYLOCAINE) 20 mg/mL (2 %) injection intravenous, As needed, Starting on Sat05/03/23 at 1052, Anesthesia Intra-op, Indications: Administration of Local AnesthesiaIndications:Administrati on of Local Anesthesia Given 05/03/2023 10:52 AM CDT 5 mL propofoL (DIPRIVAN) 10 mg/mL IV intravenous, As needed, Starting on Sat05/03/23 at 1052, Anesthesia Intra-op Given 05/03/2023 11:11 AM CDT 20 mg Given 05/03/2023 11:08 AM CDT 20 mg Given 05/03/2023 11:05 AM CDT 30 mg sodium chloride 0.9% infusion 30 mL/hr, intravenous, Continuous, Starting on Sat05/03/23 at 1045, Pre-Procedure (GI) Rate/Dose Verify 05/03/2023 10:46 AM CDT 30 mL/hr New Bag 05/03/2023 10:26 AM CDT 30 mL/hr 30 mL/hr documented in this encounter Care Teams Loader Operator Supervisor Relationship Specialty Start Date End Date Jayla Phoenix MD [address] [place], [place] [id number] PCP - General 08/07/17 documented as of this encounter
--- OUTSIDE RECORDS SUMMARY | 2024-08-23 08:02 | XMS_ITS | Encounter Summary ---
Author Organization [facility] Address [address] [place] [address] Phone Care Team Providers Care Facilities Technician Name Role Phone Jayla Phoenix MD Primary Care Provider Encounter Details Date Type Department Care Team (Late st Contact Info) Description 04/04/2023 Orders Only [facility] Gastroenterology [address] [facility] Advanced Medicine 12th [place] [address] [place] [id number] Corbin Duque MD [address] [place] [address] Crohn's disease of both small [...] on file Legal Sex Male 7:18 PM BENDING ROLL HAND Gender Identity Male 02/04/2019 10:52 AM CDT Sexual Orientation Straight 02/04/2019 10 :52 AM CDT documented as of this encounter Plan of Treatment Scheduled Orders Name Type Priority Associated Diagnoses Orde r Schedule CBC with auto differential Lab Routine 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) High risk medications (not anticoagulants) long-term use Expected: 04/04/2023, Expires: 04/04/2024 Comprehensive metabolic panel Lab Routine 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) High risk medications (not anticoagulants) long-term use Expected: 04/04/2023, Expires: 04/04/2024 CRP (acute phase) Lab Routine 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) High risk medications (not anticoagulants) long-term use Expected: 04/04/2023, Expires: 04/04/2024 TB test, quantiferon gold Lab Routine 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) High risk medications (not anticoagulants) long-term use Expected: 04/04/2023, Expires: 04/04/2024 documented as of this encounter Visit Diagnoses Diagnosis 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)- Primary High risk medications (not anticoagulants) long-term use Encounter for long-term (current) use of other medications documented in this encounter Care Teams Facilities Technician Relationship Specialty Start Date End Date Jayla Phoenix MD [address] [place] [address] PCP - General 08/07/17 documented as of this encounter
--- OUTSIDE RECORDS SUMMARY | 2024-08-23 08:02 | XMS_ITS | Encounter Summary ---
Author Organization [facility] Address [address] [place] [address] Phone Care Team Providers Care Coin Box Inspector Name Role Phone Jayla Phoenix MD Primary Care Provider [phone] Encounter Details Date Type Department Care Team (Late st Contact Info) Description 01/10/2024 Orders Only [facility] Gastroenterology [address] [facility] Advanced Medicine [address]th [place] [address] [place] [phone] Corbin Duque MD [address] [place] [address] High risk medications (not anticoagulants) long-term use (Primary Dx); Crohn's disease of both small and large intestine with other complication (HCC); Crohn's disease of small and large intestines [...] on file 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 Upon chart review, safety labs due now. New lab orders (CBC, CMP, CRP) faxed to [facility] fax #[phone] today. Reminder letter sent to pt via [employer] Refilled q4w Stelara 90mg/ml PFS x1 today to allow for labs to be completed. documented in this encounter Plan of Treatment Scheduled Orders Name Type Priority Associated Diagnoses Orde r Schedule CBC with auto differential Lab Routine High risk medications (not anticoagulants) long-term use Crohn's disease of both small and large intestine with other complication (HCC) Expected: 01/10/2024 (Approximate), Expires: 01/09/2025 Comprehensive metabolic panel Lab Routine High risk medications (not anticoagulants) long-term use Crohn's disease of both small and large intestine with other complication (HCC) Expected: 01/10/2024 (Approximate), Expires: 01/09/2025 CRP (acute phase) Lab Routine High risk medications (not anticoagulants) long-term use Crohn's disease of both small and large intestine with other complication (HCC) Expected: 01/10/2024 (Approximate), Expires: 01/09/2025 documented as of this encounter Visit Diagnoses Diagnosis High risk medications (not anticoagulants) long-term use- Primary Encounter for long-term (current) use of other medications Crohn's disease of both small and large intestine with other complication (HCC) Crohn's disease of small and large intestines with complication (HCC) documented in this encounter Discontinued Medications Medication Sig Discontinue Reason Start Date End Da te ustekinumab (STELARA) injectionIndications:Needle Leader hn's Disease Inject 1 mL (90 mg total) under the skin every 4 (four) weeks Reorder 11/06/2023 01/10/2024 documented as of this encounter Care Teams Coin Box Inspector Relationship Specialty Start Date End Date Jayla Phoenix MD [address] [place] [address] PCP - General 08/07/17 documented as of this encounter
--- OUTSIDE RECORDS SUMMARY | 2024-08-23 08:02 | XMS_ITS | Encounter Summary ---
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 Gender Identity Male 02/04/2019 10:52 AM CDT Sexual Orientation Straight 02/04/2019 10 :52 AM CDT documented as of this encounter Plan of Treatment Not on file documented as of this encounter Procedures Procedure Name Priority Date/Time Associated Diagnosis Comments SCAN - LABS 01/29/2024 documented in this encounter Results * SCAN - LABS (01/29/2024) us Provider Scanning Final Result documented in this encounter Visit Diagnoses Not on filedocumented in this encounter Care Teams Dope Mixer Relationship Specialty Start Date End Date Jayla Phoenix MD [address] [place] [address] PCP - General 08/07/17 documented as of this encounter
--- OUTSIDE RECORDS SUMMARY | 2024-08-23 08:02 | XMS_ITS | Encounter Summary ---
Author Organization 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 Gender Identity Male 02/04/2019 10:52 AM CDT Sexual Orientation Straight 02/04/2019 10 :52 AM CDT documented as of this encounter Plan of Treatment Not on file documented as of this encounter Procedures Procedure Name Priority Date/Time Associated Diagnosis Comments SCAN - LABS 04/16/2023 documented in this encounter Results * SCAN - LABS (04/16/2023) us Provider Scanning Edited Result - Final documented in this encounter Visit Diagnoses Not on filedocumented in this encounter Care Teams Turbine Subassembler Relationship Specialty Start Date End Date Jayla Phoenix MD [address] [place] [address] PCP - General 08/07/17 documented as of this encounter
--- OUTSIDE RECORDS SUMMARY | 2024-08-23 08:02 | XMS_ITS | Encounter Summary ---
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 [place] [address] Corbin Duque MD [address] [facility] [address] [place] [address] COLON BIOPSY Surgery Details Date/Time Status Location OR Service Patient Class Case Class Case Type Trauma Case? 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 male who is here for Procedure(s): COLONOSCOPY with NBI The indication(s) for the procedure(s): Crohn's disease. Past Medical History: Diagnosis Date Colon polyp Crohn's disease (CMS/HCC) (HCC) 2000 DDD (degenerative disc disease), cervical Gastric reflux HTN (hypertension) Kidney stone Past Surgical History: Procedure Laterality Date ANTERIOR CERVICAL DISCECTOMY W/ FUSION 2018 hardware removal 02/2019 APPENDECTOMY BOWEL RESECTION 2008 [...] sublingual Place 1 tablet under the tongue aircraft electronics technical officer before breakfast Yes Rajeev Dee MD losartan-hydrochlorothiazide (HYZAAR) 100-25 mg per tablet Take 1 tablet by mouth nightly 02/23/19 Yes Rajeev Dee MD multivitamin capsule Take 1 capsule by mouth aircraft electronics technical officer before breakfast Yes Rajeev Dee MD sod [...] Order(s): COLONOSCOPY ENDOSCOPY LAB Patient Name: Zoey Vasques Procedure Date: 05/03/2023 10:45 AM Date of : 1970 Admit Type: Outpatient Age: 52 Gender: Male Attending MD: Corbin Duque M.D. Room: [facility] ENDOSCOPY ROOM 01 Note Status: Finalized [...] scope was passed under direct vision. The [id number] was introduced through the anus and advanced [...] Biopsy) 05/03/2023 11:08 AM CDT Narrative PATHOLOGY [facility] - 05/05/2023 3:27 PM CDT EPIC results best viewed via link to PDF [facility] [place] [address] Note to Patients: This report may contain [...] SURGICAL PATHOLOGY REPORT FINAL Patient Name: ?? JAKEZOEY MUNGUIAJohann Gender: ??M : ??1970 (Age: 52) Address: ??[address] [place] [address] ??[id number] [facility] #: ??[id number] Taken:05/03/2023 Received:05/03/2023 Reported: 05/05/2023 Patient Type: BWC EP SAME Client ?[facility] Service: Gastro Location: Physician(s): ??MD Jayla Ambrocio [...] 0. ?? cnewho/05/03/2023 14:05 PA(s): Louisa Doll, [place], [place] (ASCP) By this signature, I attest that the above diagnosis is based upon my personal examination of the slides(and/or other material). Addenda/Procedures Microscopic slide review and interpretation for this case was performed at [facility], Department of Surgical Pathology, [address] [facility], [place] [id number], ??[place], [place] ??[address] ?? CLIA # [id number] The performance characteristics of some immunohistochemical stains, fluorescence in-situ hybridization tests and immunophenotyping by flow cytometry cited in this report (if any) were determined by the Surgical Pathology and Flow Cytometry Departments at [facility] as part of an ongoing clinical quality rn program and in compliance with federally mandated [...] Surgical Pathology and Flow Cytometry Departments of [facility]. ??It has not been cleared or approved by the U. S. Food and Drug Administration. IMAGES AND SCANNED DOCUMENTS, IF INCLUDED, ONLY VIEWABLE IN PDF VERSION OF REPORT us Corbin Duque MD LAB PATHOLOGY ORDERABLES Fi nal Result PATHOLOGY [facility] [phone] * COLONOSCOPY (05/03/2023 10:45 AM CDT) Anatomical Region Laterality Modality Other Narrative Procedure Note Corbin Duque MD - 05/03/2023 10:45 AM CDT ENDOSCOPY LAB Patient Name: Zoey Vasques Procedure Date: 05/03/2023 10:45 AM Date of : 1970 Admit Type: Outpatient Age: 52 Gender: Male Attending MD: Corbin Duque M.D. Room: [facility] ENDOSCOPY ROOM 01 Note Status: Finalized [...] The scope was passed under direct vision.The [id number] was introduced through the anusand advanced to [...] and large intestine with fistula (HCC)- Primary 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) documented in this encounter Admitting Diagnoses Diagnosis [...] Given 05/03/2023 10:26 AM CDT 4 mg simethicone (MYLICON) 66.7 mg/mL oral drops As needed, Starting on Sat05/03/23 at 1059, Intra-Op Given 05/03/2023 10:59 AM CDT 40 mg GI Tract sodium chloride 0.9% flush 0.5-20 mL 0.5-20 mL, intra-catheter, As needed, line care, Starting on Sat05/03/23 at 1004, Pre-Procedure (GI), Flush volume based on line type and size. Flush before and after each use. , Indications: FlushingIndications:Flus emery sodium chloride 0.9% infusion 30 mL/hr, intravenous, [...] Count Last Ordered Date First Ordered Date sodium chloride 0.9% flush 0.5-20 mL 1 04/19 Discharge Count Last Ordered Date First Orde red Date DISCHARGE PATIENT 1 05/03/2023 documented in this encounter Care Teams Leaflet Or Newspaper Deliverer Relationship Specialty Start Date End Date Jayla Phoenix MD [address] [place] [address] PCP - General 08/07/17 documented as of this encounter
--- OUTSIDE RECORDS SUMMARY | 2024-08-23 08:02 | XMS_ITS | Encounter Summary ---
Author Organization [facility] Address [address] [place] [address] Phone Care Team Providers Care Director Business Intelligence Name Role Phone Jayla Phoenix MD Primary Care Provider [phone] Reason for Visit * Reason Onset Date Comments GI pre procedure assessment 04/16/2023 Encounter Details Date Type Department Care Team (Late st Contact Info) Description 04/16/2023 Telephone [facility] Gastroenterology [address] [facility] [address] [place] [address] [place] [address] Michelle Hazel RN GI pre procedure assessment Social History Tobacco Use Types Packs/Day Years [...] on file 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 Wt Readings from Last 1 Encounters: 04/03/23 107.9 kg (237 lb 12.8 oz) [] Patient had GI procedure/CPAP clinic/GI clinic <30 days (if Yes, no medical screening questions needed unless new clinical issues in last 30 days) Medical screening questions: BMI/Weight: NA CARDIOVASCULAR: None RESPIRATORY/LUNG: None RENAL/LIVER/GI: None BLEEDING/CLOTTING: None NEUROLOGICAL: None ENDOCRINE: None PRIOR PROCEDURE ISSUES: None TORCH BURNER/: NA IMPLANTS.: None Notes: DIABETIC MEDS Y/N: No/NA []Yes- Discuss diabetes medication management with prescribing physician DIALYSIS Y/N: No/NA []HD- Schedule on non-HD day, see protocol []PD- Drain PD fluid AM of procedure, if colonoscopy order AB ppx, see protocol PACEMAKER/ICD Y/N: No/NA Device info: Last documented device check: Any shocks since last cards visit (if yes must see cardiology for procedure clearance): BLOOD THINNERS/ANTICOAG/ANTIPLATELET (BESIDES ASA) Medication: NONE Physician contacted for hold order/date sent: Hold order Method sent: Date hold received: Hold instructions: CONTINUE ASPIRIN INFORMATION REQUESTED []Imaging: []Medical Progress Note/H&P []Medication list []Other: PATIENT OPTIMIZATION []Physician reviewing escalation: []CPAP: Date scheduled: Outcome : [] Location limitations: Scheduling Scheduling location limitations: Vp Rheumatology needed [x] NA Language: POA [x] NA Name: SPECIAL PROCEDURE INSTRUCTIONS Scheduling Notes Procedure information Date of procedure: 05/03/23 Time of procedure: 11am Arrival time: 10am Location: Proceduralist: Dunia Instructions Method of instructions: Paper Copy [x]Confirmation of ride/rotary drier operator []Post anesthesia restrictions given [x]NPO Instructions: [x]Diet Instructions: [x]Take non-blood thinner prescription meds that morning [x]Bring med list, photo ID, insurance card, no valuables []Bring COVID vaccination card (if vaccinated) Bowel Prep Prep prescribed: Other (list) Method of Bowel Prep (RX): E-Scribe Copy Clenpiq documented in this encounter Plan of Treatment Not on file documented as of this encounter Visit Diagnoses Not on filedocumented in this encounter Care Teams Director Business Intelligence Relationship Specialty Start Date End Date Jayla Phoenix MD [address] [place] [address] PCP - General 08/07/17 documented as of this encounter
--- OUTSIDE RECORDS SUMMARY | 2024-08-23 08:02 | XMS_ITS | Encounter Summary ---
Author Organization [facility] Address [address] [place] [address] Phone Care Team Providers Care Utility Sales Representative Name Role Phone Jayla Phoenix MD Primary Care Provider [phone] Reason for Visit * Reason Onset Date Comments Med Management 11/27/2022 Encounter Details Date Type Department Care Team (Late st Contact Info) Description 11/27/2022 Telephone [facility] Gastroenterology [address] [place] [address] [place] [address] Thea Hussein Med Management Social History Tobacco Use Types Packs/Day Years [...] on file 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 documented in this encounter Plan of Treatment Not on file documented as of this encounter Visit Diagnoses Not on filedocumented in this encounter Care Teams Utility Sales Representative Relationship Specialty Start Date End Date Jayla Phoenix MD [address] [place], [place] [id number] PCP - General 08/07/17 documented as of this encounter
--- OUTSIDE RECORDS SUMMARY | 2024-08-23 08:02 | XMS_ITS | Encounter Summary ---
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 Discuss at f/up appointment whether need for change or not. Dr Dunia Townsend reviewed your biopsies and noted that they showed some mild active inflammation in the terminal ileum and rectum. He asked to have you follow up in 4 weeks on his procedure note to discuss ifyou need a medication change. We now have you on for September which I will leave on the books. Are you able to come back in to the office again in the next month or 2? Or prefer a zoom if I can find a spot for that? Thank you, Michelle documented in this encounter Plan of Treatment Not on file documented as of this encounter Visit Diagnoses Not on filedocumented in this encounter Care Teams Machinist Helper Marine Relationship Specialty Start Date End Date Jayla Phoenix MD [address] [place] [address] PCP - General 08/07/17 documented as of this encounter
--- OUTSIDE RECORDS SUMMARY | 2024-08-23 08:02 | XMS_ITS | Encounter Summary ---
Author Organization [facility] Address [address] [place] [address] Phone Care Team Providers Care Custom Feed Mill Operator Name Role Phone Jayla Phoenix MD Primary Care Provider [phone] Reason for Visit * Reason Onset Date Comments Prior Auth 03/15/2023 Encounter Details Date Type Department Care Team (Late st Contact Info) Description 03/15/2023 Telephone [facility] Gastroenterology [address] [facility] [address]th [place] [address] [place] [address] Corbin Duque MD [address] [place] [address] Prior Auth Social History Tobacco Use Types [...] on file 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 - 04/02/2023 12:12 PM CDT New PA initiated: Stelara SQ 90MG Status:Faxed PA Form and clinicals [employer] Status:Approved 03/29/2023-03/29/2024 * Telephone Encounter - Isabel Jeronimo V. - 03/29/2023 9:02 AM CDT New PA initiated: Stelara SQ 90MG Status:Faxed PA Form and clinicals [employer] * Telephone Encounter - Isabel Jeronimo V. - 03/25/2023 2:35 PM CDT Refaxed Stelara form to [facility] regarding patient's primary insurance termed 02/13/2023. * Telephone Encounter - Isabel Jeronimo V. - 03/15/2023 1:16 PM CDT Valenzuela: [id number] Stelara 90MG/ML syringes Status:Pending; Faxed PA form via [employer] * Telephone Encounter - Michelle Hazel RN - 03/15/2023 11:41 AM CDT Stelara under different insurance documented in this encounter Plan of Treatment Not on file documented as of this encounter Visit Diagnoses Not on filedocumented in this encounter Care Teams Custom Feed Mill Operator Relationship Specialty Start Date End Date Jayla Phoenix MD [address] [place] [address] PCP - General 08/07/17 documented as of this encounter
--- OUTSIDE RECORDS SUMMARY | 2024-08-23 08:02 | XMS_ITS | Encounter Summary ---
Author Organization [facility] Address [address] [facility] [address] [place] [address] Phone Care Team Providers Care Technician Test Systems Name Role Phone Jayla Phoenix MD Primary Care Provider [phone] Encounter Details Date Type Department Care Team (Late st Contact Info) Description 10/09/2023 10:00 AM BLENDING KETTLE TENDER Office Visit [facility] [address] [place] [address] Medical Office Building [address] [place] [address] Corbin Duque MD [address] [place] [address] 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) (Primary Dx); High risk medications (not anticoagulants) long-term use Social History Tobacco Use Types Packs/Day Years Used Date Smoking Tobacco: Former Cigarettes 1.5 9 1 994 - 2003 Smokeless Tobacco: Never Tobacco Cessation:Counseling Given: Not [...] on file Legal 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 Male 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 Gender Identity Male 02/04/2019 10:52 AM CDT Sexual Orientation Straight 02/04/2019 10 :52 AM CDT documented as of this encounter Last Filed Vital Signs Vital Sign Reading Time Taken Comments Blood Pressure 121/84 10/09/2023 10:07 AM BLENDING KETTLE TENDER Pulse 97 10/09/2023 10:07 AM BLENDING KETTLE TENDER Temperature - - Respiratory Rate - - Oxygen Saturation - - Inhaled Oxygen Concentration - - Weight 109.3 kg (241 lb) 10/09/2023 10:07 AM BLENDING KETTLE TENDER Height 188 cm (6' 2 ) 10/09/2023 10:07 AM BLENDING KETTLE TENDER Body Mass Index 30.94 10/09/2023 10:07 AM BLENDING KETTLE TENDER documented in this encounter Patient Instructions * Patient Instructions* Michelle Hazel RN - 10/09/2023 10:00 AM BLENDING KETTLE TENDER Labs due now Stelara every 4 weeks when approved Follow up in 4 months DING KETTLE TENDER documented in this encounter Progress Notes * Stefany Zuniga NP - 10/09/2023 10:00 AM CST NAME: Kristian Vasques : 1970 DATE: 10/09/2023 Reason for visit: Crohn's disease HPI: Kristian Vasques is a 53 y.o. male here for follow up penetrating ileocolonic Crohn's diseasehe is on stelara which was started 05/06/20 Prior to this he had been on no therapy since his IC resection in 2008 secondary to small bowel obstruction. Prior to his resection he had been on pentasa. He was diagnosed in 2000. MRE in February 2020 showed active disease and fistula at the anastamosis. Colonoscopy in March 2020 showed active inflammation as well. Therefore started on stelara. On stelaraevery 8 weeks. He had a repeat MRE in August 2020 which showed enterocolic fistula at the level ofthe ileocolic anastomosis which appeared fibrosed in the mid segment and decreased in thickness compared to the prior exam. Colonoscopy 01/2021 noted to have a few erosions at the neoterminal ileum. Had repeat colonoscopy 04/2023 with active ileal inflammation noted and proctitis on histology. Remains on stelara every 8 weeks . He feels overall well aside from fatigue. Having regular bowel movements. Denies any diarrhea. Denies any joint pain. Denies any abdominal pain. Denies any nausea or vomiting. Patient Active Problem List Diagnosis Date Noted Crohn's disease of small and large intestines with complication (HCC) 12/21/2020 Added automatically from request for surgery [id number] Hyperoxaluria 12/21/2020 Benign prostatic hyperplasia with urinary frequency 09/13/2020 High risk medications (not anticoagulants) long-term use 05/18/2020 Bilateral nephrolithiasis 04/05/2020 Added automatically from request for surgery [id number] 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) 03/03/2020 Added automatically from request for surgery [id number] Crohn's disease of both small and large intestine with other complication (HCC) 01/22/2020 Year of diagnosis: 2000. Year symptoms began: [...] vaccination status: Non immune Covid vaccine: Unknown Cervical disc herniation 02/02/2019 Added automatically from request for surgery [id number] Cervical radiculopathy 02/02/2019 Added automatically from request for surgery [id number] Fusion of spine of cervical region 02/02/2019 Added automatically from request for surgery [id number] Cervical radiculopathy at C7 01/23/2019 Cervical pain (neck) 09/03/2017 Past Medical History: Diagnosis Date Colon polyp Crohn's disease (CMS/HCC) (HCC) 2000 DDD (degenerative disc disease), cervical Gastric reflux HTN (hypertension) Kidney stone Current Outpatient Medications Medication Sig Dispense Refill colestipoL (COLESTID) 1 gram tablet TAKE 2 TABLETS BY MOUTH 2 TIMES A DAY. 360 tablet 1 cyanocobalamin, vitamin B-12, 5,000 mcg tablet, sublingual Place 1 tablet under the tongue digital analyst before breakfast losartan-hydrochlorothiazide (HYZAAR) 100-25 mg per tablet Take 1 tablet by mouth nightly multivitamin capsule Take 1 capsule by mouth digital analyst before breakfast sod picosulf-mag ox-citric ac (Clenpiq) 10 mg-3.5 gram- 12 gram/160 mL solution Take 1 Bottle by mouth every 6 (six) hours Follow bowel prep instructions provided 320 mL 0 tamsulosin (FLOMAX) 0.4 mg extended release capsule Take 2 capsules (0.8 mg total) by mouth [id number] capsule 3 traZODone (DESYREL) 100 mg tablet TAKE 2 TABLETS (100 MG) BY ORAL ROUTE AT BEDTIME ustekinumab (STELARA) injection Inject 1 mL (90 mg total) under the skin every 8 (eight) weeks 1 mL0 No current facility-administered medications for this visit. Review of Systems: Constitutional: Negative. HENT: Negative for sore throat and trouble swallowing. Eyes: Negative. Respiratory: Negative. Cardiovascular: Negative. Gastrointestinal: See HPI Endocrine: Negative. Genitourinary: Negative. Musculoskeletal: Negative. Skin: Negative. Allergic/Immunologic: Negative. Neurological: Negative. Hematological: Negative. Psychiatric/Behavioral: Negative. Breast: Negative. Physical Exam: BP 121/84 (BP Location: Left arm, Patient Position: Sitting) Pulse 97 Ht 188 cm (6' 2 ) Wt 109.3 kg (241 lb) BMI 30.94 kg/m?? GENERAL: Well-appearing, in no acute distress. HEENT: Sclerae anicteric. Oropharynx without lesion. NECK: Supple without lymphadenopathy or thyromegaly. LUNGS: Clear to auscultation bilaterally, breath sounds symmetrical bilaterally CARDIOVASCULAR: Regular rate and rhythm with no murmur, rub or gallop ABDOMEN: Flat, soft, non-tender; bowel sounds normal active in all four quadrants, no hepatosplenomegaly, or palpable masses RECTAL: deferred EXTREMITIES: No clubbing, cyanosis or edema. SKIN: No rash or jaundice. NEUROLOGIC: Grossly nonfocal on simple observation with normal insight, memory, affect, and orientation Imaging Review none Assessment/Plan: Crohn's disease Penetrating IC crohn's on Stelara. Colonoscopy in April showed continued inflammation despite stelara -continue stelara, with inflammation seen on colonoscopy will advance to every 4 week dosing. -continue safety labs -continue questran -continue vitamin D and B12 supplementation -follow up in 4 months High risk medications: As with all patients [...] review and are encouraged to contact us withany questions regarding new symptom development. No problem-specific Assessment & Plan notes found for this encounter. Follow up: Return in about 4 months (around 02/07/2024). Cosigned by Corbin Duque MD at 10/16/2023 1:28 PM BLENDING KETTLE TENDER DING KETTLE TENDER DING KETTLE TENDER Associated attestation - Corbin Duque MD - 10/16/2023 1:28 PM BLENDING KETTLE TENDER I have seen and examined the patient in conjunction with the Nurse Practitioner. Please refer to the [facility] note for PMH and ROS. History: Patient with IC CD with active disease on q 8 stelara. Physical Exam: GENERAL: Well-appearing, in no acute distress. HEENT: Sclerae anicteric. Oropharynx without lesion. NECK: Supple without lymphadenopathy or thyromegaly. LUNGS: Clear to auscultation bilaterally, breath sounds symmetrical bilaterally CARDIOVASCULAR: Regular rate and rhythm with no murmur, rub or gallop ABDOMEN: Flat, soft, non-tender; bowel sounds normal active in all four quadrants, no hepatosplenomegaly, or palpable masses. RECTAL: deferred EXTREMITIES: No clubbing, cyanosis or edema. SKIN: No rash or jaundice. NEUROLOGIC: Grossly nonfocal on simple observation with normal insight, memory, affect, and orientation Lab/Radiology/Diagnostics Review: pending Assessment/Plan At this point move to q 4 on stelara and fup in 4 months. Corbin Duque MD, FACP, FACG, AGAJUSTEN Guy street sweeper operator [facility] Gastro[facility]ology Division [facility] [address] [place] [address] Academic office [phone] documented in this encounter Plan of Treatment Not on file documented as of this encounter Visit Diagnoses Diagnosis 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)- Primary High risk medications (not anticoagulants) long-term use Encounter for long-term (current) use of other medications documented in this encounter Care Teams Technician Test Systems Relationship Specialty Start Date End Date Jayla Phoenix MD [address] [place] [address] PCP - General 08/07/17 documented as of this encounter
--- OUTSIDE RECORDS SUMMARY | 2024-08-23 08:02 | XMS_ITS | Encounter Summary ---
Author Organization [facility] Address [address] [facility] [address] [place] [address] Phone Care Team Providers Care Digital Media Designer Name Role Phone Jayla Phoenix MD Primary Care Provider [phone] Reason for Visit * Consultation (Routine) - Closed Specialty Diagnoses / Procedures Referred By Contac t Referred To Contact Urology Diagnoses Nephrolithiasis Benign prostatic hyperplasia with urinary frequency Jayla Phoenix MD [address] [place] [address] Phone: tel: fax: [facility] (All Locations) Referral ID Status Reason Start Date Expiration Date V isits Requested Visits Authorized [id number] Closed Specialty Services Required 04/04/2023 05/03/2024 99 99 Encounter Details Date Type Department Care Team (Late st Contact Info) Description 01/31/2024 10:00 AM CDT Telemedicine [facility] Gastroenterology [address] [facility] Medical Office Building [address] [place] [address] Corbin Duque MD [address] [place] [address] Crohn's disease of small and large intestines with complication (HCC) (Primary Dx); High risk medications (not anticoagulants) long-term use Social History Tobacco Use Types Packs/Day Years Used Date Smoking Tobacco: Former Cigarettes 1.5 9 1 994 - 2003 Smokeless Tobacco: Never Alcohol Use Standard Drinks/Week [...] on file 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 Gender Identity Male 02/04/2019 10:52 AM CDT Sexual Orientation Straight 02/04/2019 10 :52 AM CDT documented as of this encounter Patient Instructions * Patient Instructions* Deni Hazel RN - 01/31/2024 10:00 AM CDT Labs due again in April Follow up in 6 months documented in this encounter Ordered Prescriptions Prescription Sig Dispense Quantity Refills Last Filled Start Date End Date ustekinumab (STELARA) injectionIndicatio ns:Crohn's Disease Inject 1 mL (90 mg total) under the skin every 4 (four) weeks Labs due in 04/2024 1 mL 2 02/05/2024 03/06/2024 documented in this encounter Progress Notes * Corbin Duque MD - 01/31/2024 10:00 AM CDT Images from the original note were not included. [facility] Corbin Duque MD, FACP, FACG, AGAMalena, JUSTEN storeroom keeper Subjective NAME: Kristian Vasques : 1970 DOS: 01/31/2024 This was a telemedicine visit with Kristian Joyner Layo alone which took place via Real-time video connection (InTouch, Zoom or similar). During the visit, I was located at home and the patient was located home in the state of [place]. The patient visit started at 1005 and ended at 1021. My total encounter time on 01/31/2024 was 16 minutes which was spent in the activities [...] a telephone or video visit during the COVID-19 public health emergencywas explained to them. After being given an opportunity to ask questions about and discuss this type of visit, they verbally consented to proceeding with the telephone/video visit and understand thatthis service replaces an office visit. Corbin Duque MD Referred here Primary Care Physician: Jayla Phoenix MD Consult requested by: Jayla Phoenix MD Chief Complaint: CD on q 4 stelara HPI Kristian Vasques, is a 53 y.o.male who presents for same. Notes one bm/day. Formed. Some urgency. No EIM's. Stelara ok. 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 Year symptoms began: 2000. Phenotype: Penetrating (B3) without perianal disease. Distribution: ileocolonic (L3) without upper GI disease (L4). Extraintestinal manifestations: arthralgias. Complications: hx SBO Kidney stones, hydronephrosis Prior treatments: pentasa. Current treatment: Stelara (started 04/2020) every 8 weeks, level 7.7 09/2020, 11/06/21 3.3 FC 02/2020 Prior surgeries: IC resection 2008. Endoscopies: [...] Unknown Assessment & Plan Note: CD doing well on stelara rx q 4. Demonstrable improvement. Will continue q 4 and f/u in 6 mo. Cervical disc herniation 02/02/2019 Overview Note: Added automatically from request for surgery [id number] Cervical radiculopathy 02/02/2019 Overview Note: Added automatically from request for surgery [id number] Fusion of spine of cervical region 02/02/2019 Overview Note: Added automatically from request for surgery [id number] Cervical radiculopathy at C7 01/23/2019 Cervical pain (neck) 09/03/2017 Current Outpatient Medications Medication Sig Dispense Refill colestipoL (COLESTID) 1 gram tablet TAKE 2 TABLETS BY MOUTH TWICE A DAY 360 tablet 1 cyanocobalamin, vitamin B-12, 5,000 mcg tablet, sublingual Place 1 tablet under the tongue test architect before breakfast losartan-hydrochlorothiazide (HYZAAR) 100-25 mg per tablet Take 1 tablet by mouth nightly multivitamin capsule Take 1 capsule by mouth test architect before breakfast sod picosulf-mag ox-citric ac (Clenpiq) 10 mg-3.5 gram- 12 gram/160 mL solution Take 1 Bottle by mouth every 6 (six) hours Follow bowel prep instructions provided 320 mL 0 tamsulosin (FLOMAX) 0.4 mg extended release capsule Take 2 capsules (0.8 mg total) by mouth [id number] capsule 3 traZODone (DESYREL) 100 mg tablet TAKE 2 TABLETS (100 MG) BY ORAL ROUTE AT BEDTIME ustekinumab (STELARA) injection Inject 1 mL (90 mg total) under the skin every 4 (four) weeks SAFETY LABS REQUIRED FOR ADDITIONAL FILLS 1 mL 0 No current facility-administered medications for this visit. Iodinated contrast media Family History Problem Relation Age of Onset Heart attack Father Anesthesia problems Neg Hx Social History Tobacco Use Smoking status: Former Current packs/day: 0.00 Average packs/day: 1.5 packs/day for 9.0 years (13.5 ttl pk-yrs) Types: Cigarettes Start date: 1993 Quit date: 2002 Years since quittin.4 Smokeless tobacco: Never Substance and Sexual Activity [...] the hospital encounter of 12/21/21 POC ISTAT Result Value Ref Range Creatinine, POC, bld 1.1 0.6 - 1.3 mg/dL POC Device Number [id number] POC Performer [id number] Assessment/Plan Crohn's disease of both small and large intestine with other complication (HCC) CD doing well on stelara rx q 4. Demonstrable improvement. Will continue q 4 and f/u in 6 mo. Orders No orders of the defined types [...] clinical setting. Corbin Duque MD, FACP, FACG, AGAMalena, JUSTEN storeroom keeper [facility] Gastroenterology Division [facility] [address] [place] [address] Academic office [phone] documented in this encounter Miscellaneous Notes * Assessment & Plan Note - Corbin Duque MD - 01/31/2024 10:18 AM CDT Associated Problem(s): Crohn's disease of both small and large intestine with other complication (HCC) CD doing well on stelara rx q 4. Demonstrable improvement. Will continue q 4 and f/u in 6 mo. * Addendum Note - Deni Hazel RN - 01/31/2024 10:00 AM CDTAddended by: DENI HAZEL on: 02/05/2024 11:33 AM Modules accepted: Orders documented in this encounter Plan of Treatment Not on file documented as of this encounter Visit Diagnoses Diagnosis Crohn's disease of small and large intestines with complication (HCC)- Primary High risk medications (not anticoagulants) long-term use Encounter for long-term (current) use of other medications documented in this encounter Discontinued Medications Medication Sig Discontinue Reason Start Date End Da te sod picosulf-mag ox-citric ac (Clenpiq) 10 mg-3.5 gram- 12 gram/160 mL solutionIndications:B owel Evacuation Take 1 Bottle by mouth every 6 (six) hours Follow bowel prep instructions provided 04/19/2023 02/05/2024 ustekinumab (STELARA) injectionIndications: Crohn's Disease Inject 1 mL (90 mg total) under the skin every 4 (four) weeks SAFETY LABS REQUIRED FOR ADDITIONAL FILLS Reorder 01/10/2024 02/05/2024 documented as of this encounter Care Teams Digital Media Designer Relationship Specialty Start Date End Date Jayla Phoenix MD [address] [place] [address] PCP - General 08/07/17 documented as of this encounter
--- OUTSIDE RECORDS SUMMARY | 2024-08-23 08:02 | XMS_ITS | Encounter Summary ---
Author Organization [facility] Address [address] [place] [address] Phone Care Team Providers Care Saw Grinder Name Role Phone Jayla Phoenix MD Primary Care Provider [phone] Reason for Visit * Reason Onset Date Comments Prior Auth 10/02/2022 Encounter Details Date Type Department Care Team (Late st Contact Info) Description 10/02/2022 Telephone [facility] Gastroenterology [address] 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 Gender Identity Male 02/04/2019 10:52 AM CDT Sexual Orientation Straight 02/04/2019 10 :52 AM CDT documented as of this encounter Ordered Prescriptions Prescription Sig Dispense Quantity Refills Last Filled Start Date End Date ustekinumab (STELARA) injectionIndicatio ns:Crohn's Disease Inject 1 mL (90 mg total) under the skin every 8 (eight) weeks 1 mL 1 01/08/2023 03/25/2023 documented in this encounter Miscellaneous Notes * Telephone Encounter - Amanda Mckeon - 10/02/2023 2:54 PM CST Duplicate request Valenzuela: [id number] Stelara 90MG/ML syringes Status: pending [employer] Form faxed to plan 10/09/2023 for increased dosage ERING TEACHER ERING TEACHER ERING TEACHER * Telephone Encounter - Isabel Jeronimo V. - 10/05/2022 9:33 AM CST Stelara Status:Approved 10/09/2022-10/09/2023 per Aracelis Ness @[employer]. Patient will need to call [phone] to reschedule a delivery date. Refaxed clinicals and PA request to [employer] @[phone] CaseId:[id number] Faxed PA request to [employer] [facility] @[phone]. ERING TEACHER ERING TEACHER ERING TEACHER ERING TEACHER * Telephone Encounter - Michelle Hazel RN - 10/02/2022 8:28 AM CST Stelara injections ERING TEACHER documented in this encounter Plan of Treatment Not on file documented as of this encounter Visit Diagnoses Not on filedocumented in this encounter Discontinued Medications Medication Sig Discontinue Reason Start Date End Da te Stelara injection MAINTENANCE: INJECT 1 SYRINGE SUBCUTANEOUSLY EVERY 8 WEEKS. REFRIGERATE. DO NOT FREEZE. 09/17/2022 01/08/2023 documented as of this encounter Care Teams Saw Grinder Relationship Specialty Start Date End Date Jayla Phoenix MD [address] [place] [address] PCP - General 08/07/17 documented as of this encounter
--- OUTSIDE RECORDS SUMMARY | 2024-08-23 08:02 | XMS_ITS | Encounter Summary ---
Author Organization [facility] Address [address] [place] [address] Phone Care Team Providers Care Lcac Radar Operator/Navigator Name Role Phone Jayla Phoenix MD Primary Care Provider [phone] Reason for Visit * Reason Onset Date Comments Med Management 11/05/2023 [place] Encounter Details Date Type Department Care Team (Late st Contact Info) Description 11/05/2023 Telephone [facility] Gastroenterology [address] [facility] 12th [place] [address] [place] [address] Thea Hussein Med Management ([place] ) Social History Tobacco Use Types Packs/Day Years [...] on file 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 I advised q4w increased dosing appeal currently under review with due date for decision to be made by 11/07/23; office will refill according to decision made likely by end of the week. documented in this encounter Plan of Treatment Not on file documented as of this encounter Visit Diagnoses Not on filedocumented in this encounter Care Teams Lcac Radar Operator/Navigator Relationship Specialty Start Date End Date Jayla Phoenix MD [address] [place] [address] PCP - General 08/07/17 documented as of this encounter
--- OUTSIDE RECORDS SUMMARY | 2024-08-23 08:02 | XMS_ITS | Encounter Summary ---
Author Organization [facility] Healthcare Address [address] [place] [address] Care Team Providers Care Guide Foreign Tour Name Role Phone Jayla Phoenix MD Primary Care Provider [phone] Reason for Referral * Diagnostic Imaging (Routine) - Closed Specialty Diagnoses / Procedures Referred By Elina senior Referred To Contact Diagnoses Bilateral nephrolithiasis Procedures US Kidney Complete Hipolito Reyes MD Phone: tel: fax: [place] [phone] [address] [phone] Referral ID Status Reason Start Date Expiration Date Visits Re quested Visits Authorized [id number] Closed 12/27/2021 01/26/2023 1 1 Reason for Visit * Diagnostic Imaging (Routine) - Closed Specialty Diagnoses / Procedures Referred By Elina senior Referred To Contact Diagnoses Bilateral nephrolithiasis Procedures Kidney Complete Hipolito Reyes MD Phone: tel: fax: [place] [phone] [address] [place] [phone] Referral ID Status Reason Start Date Expiration Date Visits Re quested Visits Authorized [id number] Closed 12/27/2021 01/26/2023 1 1 Encounter Details Date Type Department Care Team (Latest Contact Info) Description 11/15/2022 8:56 AM CDT - 11/15/2022 11:59 PM CDT Hospital Encounter [facility] Imaging [id number] [address] [place] [phone] Bilateral nephrolithiasis Discharge Disposition: Discharge to home or self [...] on file 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 Gender Identity Male 02/04/2019 10:52 AM CDT Sexual Orientation Straight 02/04/2019 10 :52 AM CDT documented as of this encounter Medications at Time of Discharge cyanocobalamin, vitamin B-12, 5,000 mcg tablet, sublingualIndic ations:Preventi on of Vitamin B12 Deficiency Place 1 tablet under the tongue early childhood teacher assistant before breakfast losartan-hydroc hlorothiazide (HYZAAR) 100-25 mg per tabletIndicatio ns:hypertension Take 1 tablet by mouth nightly 02/23/2019 multivitamin capsuleIndicati ons:Vitamin Deficiency Prevention Take 1 capsule by mouth early childhood teacher assistant before breakfast traZODone (DESYREL) 100 mg tablet TAKE 2 TABLETS (100 MG) BY ORAL ROUTE AT BEDTIME 08/20/2022 colestipoL (COLESTID) 1 gram tablet TAKE 2 TABLETS BY MOUTH 2 TIMES A DAY. 360 tablet 1 09/19/2022 3 diphenhydrAMINE (BENADRYL) 25 mg capsuleIndicati ons:sleep Take 25 mg by mouth nightly as needed for itching 3 melatonin 5 mg tabletIndicatio ns:sleep Take 5 mg by mouth nightly as needed 3 Stelara injection MAINTENANCE: INJECT 1 SYRINGE SUBCUTANEOUSLY EVERY 8 WEEKS. REFRIGERATE. DO NOT FREEZE. 1 mL 1 09/17/2022 3 tamsulosin (FLOMAX) 0.4 mg extended release capsuleIndicati ons:Nephrolithi asis Take 2 capsules (0.8 mg total) by mouth nightly 180 capsule 3 12/27/2021 3 ustekinumab (STELARA) injectionIndica tions:Crohn's Disease Inject 1 mL (90 mg total) under the skin every 8 (eight) weeks 1 mL 1 01/08/2023 3 zolpidem (AMBIEN) 5 mg tablet 0 12/01/2020 3 documented as of this encounter Discharge Disposition Disposition Code Departure Means Destination Discharge to home or self care documented in this encounter Plan of Treatment Not on file documented as of this encounter Procedures Procedure Name Priority Date/Time Associated Diagnosis Comments US KIDNEY COMPLETE Schedule Routine, Read Routine (OP Routine) 11/15/2022 9:56 AM CDT Bilateral nephrolithiasis documented in this encounter Results * US Kidney Complete (11/15/2022 9:56 AM CDT) Anatomical Region Laterality Modality Kidney N/A Ultrasound 11/15/2022 10:1 3 AM CDT Impressions 11/15/2022 11:49 AM CDT 1. ??Unchanged bilateral nonobstructing renal calculi. ??No hydronephrosis. Dictated by: Avni Berumen M.D. The radiology attending physician has personally reviewed this study, and had reviewed and/or edited this written report and agrees with it. Electronically signed by: Evangelista Vallejo M.D. Narrative 11/15/2022 11:49 AM CDT EXAMINATION: COMPLETE RENAL SONOGRAM HISTORY: ??52-year-old male with nephrolithiasis and Crohn's disease. COMPARISON: ??Comparison ultrasound from 12/18/2021. FINDINGS: ?? Kidneys: The echogenicity of both kidneys is normal. The kidneys are normal in size. ??The right kidney measures 11.6 cm in length, [...] normal with bilateral renal jets are seen Procedure Note Evangelista Vallejo MD - 11/15/2022 EXAMINATION: COMPLETE RENAL SONOGRAM HISTORY: 52-year-old male [...] normal with bilateral renal jets are seen IMPRESSION: 1. Unchanged bilateral nonobstructing renal calculi. No hydronephrosis. Dictated by: Avni Berumen M.D. The radiology attending physician has personally reviewed this study, and had reviewed and/or edited this written report and agrees with it. Electronically signed by: Evangelista Vallejo M.D. Hipolito [place] [facility] [place]al Result documented in this encounter Visit Diagnoses Diagnosis Bilateral nephrolithiasis documented in this encounter Care Teams Guide Foreign Tour Relationship Specialty Start Date End Date Jayla Phoenix MD [address] [place] [address] PCP - General 08/07/17 documented as of this encounter
--- OUTSIDE RECORDS SUMMARY | 2024-08-23 08:02 | XMS_ITS | Encounter Summary ---
Author Organization [facility] Address [address] [place] [address] Phone Care Team Providers Care Concession Cashier Name Role Phone Jayla Phoenix MD Primary Care Provider [phone] Reason for Visit * Reason Onset Date Comments Med Management 12/07/2022 colestipol Encounter Details Date Type Department Care Team (Late st Contact Info) Description 12/07/2022 Telephone [facility] Gastroenterology [address] 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 They stated they have 9 bottles of colestipol 1gm tablets currentlyin stock. Sent e-script to fill qty 360 for 90 days with 1 additional fill. Previous directions to take 2 tabs twice daily. * Telephone Encounter - Thea Hussein - 12/07/2022 4:44 PM CDT ----- Message from Kristian Vasques sent at 12/07/2022 2:23 PM CDT ----- Regarding: Colestipol Contact: I was wondering if I can get my prescription colestipol filled at a different location. It???s beenout at the [facility] in [place] but if I can get it sent to the [facility] over in [place] the address is[address] [address]. And cancel the powder as they haven???t filled it yet Thanks Kristian documented in this encounter Plan of Treatment Not on file documented as of this encounter Visit Diagnoses Not on filedocumented in this encounter Discontinued Medications Medication Sig Discontinue Reason Start Date End Da te colesevelam (WELCHOL) 625 mg tablet Take 3 tablets (1,875 mg total) by mouth 2 (two) times a day with meals Other 11/28/2022 12/07/2022 documented as of this encounter Care Teams Concession Cashier Relationship Specialty Start Date End Date Jayla Phoenix MD [address] [place] [id number] PCP - General 08/07/17 documented as of this encounter
--- OUTSIDE RECORDS SUMMARY | 2024-08-23 08:02 | XMS_ITS | Encounter Summary ---
Author Organization [facility] Address [address] [place] [address] Phone Care Team Providers Care Gas Meter Mechanic Name Role Phone Jayla Phoenix MD Primary Care Provider [phone] Encounter Details Date Type Department Care Team (Late st Contact Info) Description 04/19/2023 Orders Only [facility] Gastroenterology [address] [facility] 12th [place] [address] [place] [address] Corbin Duque MD [address] [place] [address] Social History Tobacco Use Types Packs/Day Years [...] on file 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 Gender Identity Male 02/04/2019 10:52 AM CDT Sexual Orientation Straight 02/04/2019 10 :52 AM CDT documented as of this encounter Ordered Prescriptions Prescription Sig Dispense Quantity Refills Last Filled Start Date End Date sod picosulf-mag ox-citric ac (Clenpiq) 10 mg-3.5 gram- 12 gram/160 mL solutionIndicatio ns:Bowel Evacuation Take 1 Bottle by mouth every 6 (six) hours Follow bowel prep instructions provided 320 mL 04/19/2023 4 documented in this encounter Plan of Treatment Not on file documented as of this encounter Visit Diagnoses Not on filedocumented in this encounter Care Teams Gas Meter Mechanic Relationship Specialty Start Date End Date Jayla Phoenix MD [address] [place] [address] PCP - General 08/07/17 documented as of this encounter
--- OUTSIDE RECORDS SUMMARY | 2024-08-23 08:02 | XMS_ITS | Encounter Summary ---
Author Organization [facility] Healthcare Address [address] [place] [address] Care Team Providers Care Railroad Car Inspector Name Role Phone Jayla Phoenix MD Primary Care Provider Encounter Details Date Type Department Care Team ([facility] Contact Info) Description 04/03/2023 10:35 AM CDT Lab 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
--- OUTSIDE RECORDS SUMMARY | 2024-08-23 08:02 | XMS_ITS | Encounter Summary ---
Author Organization [facility] Address [address] [place] [address] Phone Care Team Providers Care Shift Foreman Name Role Phone Jayla Phoenix MD Primary Care Provider [phone] Encounter Details Date Type Department Care Team (Late st Contact Info) Description 03/25/2023 Orders Only [facility] Gastroenterology [address] [facility] 12th [place] [address] [place] [address] Corbin Duque MD [address] [place] [address] Social History Tobacco Use Types Packs/Day Years [...] on file 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 Gender Identity Male 02/04/2019 10:52 AM CDT Sexual Orientation Straight 02/04/2019 10 :52 AM CDT documented as of this encounter Ordered Prescriptions Prescription Sig Dispense Quantity Refills Last Filled Start Date End Date ustekinumab (STELARA) injectionIndicatio ns:Crohn's Disease Inject 1 mL (90 mg total) under the skin every 8 (eight) weeks 1 mL 03/25/2023 04/17/2023 documented in this encounter Plan of Treatment Not on file documented as of this encounter Visit Diagnoses Not on filedocumented in this encounter Discontinued Medications Medication Sig Discontinue Reason Start Date End Da te ustekinumab (STELARA) injectionIndications:Draw Bench Operator Helper hn's Disease Inject 1 mL (90 mg total) under the skin every 8 (eight) weeks Reorder 01/08/2023 03/25/2023 documented as of this encounter Care Teams Shift Foreman Relationship Specialty Start Date End Date Jayla Phoenix MD [address] [place] [address] PCP - General 08/07/17 documented as of this encounter
--- OUTSIDE RECORDS SUMMARY | 2024-08-23 08:02 | XMS_ITS | Encounter Summary ---
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) Jayla Phoenix MD [address] [place] [address] Phone: tel: fax: [facility] (All Locations) Referral ID Status Reason Start Date Expiration Date V isits Requested Visits Authorized [id number] Closed Specialty Services Required 10/04/2021 08/18/2023 12 12 Encounter Details Date Type Department Care Team (Late st Contact Info) Description 04/03/2023 10:00 AM CDT Office Visit [facility] Gastroenterology [facility] Medical Office Building [address] [place] [address] Corbin Duque MD [address] [place] [address] 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) (Primary Dx); High risk medications (not anticoagulants) long-term use Social History Tobacco Use Types Packs/Day Years Used Date Smoking Tobacco: Former Cigarettes 1.5 9 1 994 - 2002 Smokeless Tobacco: Never Tobacco Cessation:Counseling [...] on file 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 Gender Identity Male 02/04/2019 10:52 AM CDT Sexual Orientation Straight 02/04/2019 10 :52 AM CDT documented as of this encounter Last Filed Vital Signs Vital Sign Reading Time Taken Comments Blood Pressure 120/79 04/03/2023 9:50 AM CDT Pulse 90 04/03/2023 9:50 AM CDT Temperature - - Respiratory Rate - - Oxygen Saturation 98% 04/03/2023 9:50 AM CDT Inhaled Oxygen Concentration - - Weight 107.9 kg (237 lb 12.8 oz) 04/03/2023 9:50 AM CDT Height 188 cm (6' 2 ) 04/03/2023 9:50 AM CDT Body Mass Index 30.53 04/03/2023 9:50 AM CDT documented in this encounter Patient Instructions * Patient Instructions* Michelle Hazel RN - 04/03/2023 10:00 AM CDT Labs due now Colonoscopy 05/03/23 at 11am with 10am arrival to [facility] Follow up in 6 months documented in this encounter Progress Notes * Corbin Duque MD - 04/03/2023 10:00 AM CDT Images from the original note were not included. [facility] Corbin Duque MD, FACP, FACG, AGAMalena, FASGE plastic tubing insulation supervisor Subjective NAME: Kristian Vasques : 1970 DATE: 04/03/2023 Referred here Primary Care Physician: Jayla Phoenix MD Consult requested by: Referral, Self Chief Complaint: CD HPI Kristian Vasques, is a 52 y.o.male who presents for same. Notes one bm potentially 2/day but notes urgency which is new. Last colon 2020. Due anyway. No EIM or bleeding. 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 Endoscopies: Colon 01/2021 A few erosions in the [...] 02/02/2019 Added automatically from request for surgery [id number] Cervical radiculopathy 02/02/2019 Added automatically from request for surgery [id number] Fusion of spine of cervical region 02/02/2019 Added automatically from request for surgery [id number] Cervical radiculopathy at C7 01/23/2019 Cervical pain (neck) 09/03/2017 Past Medical History: Diagnosis Date Colon polyp Crohn's disease (CMS/HCC) (HCC) 2000 DDD (degenerative disc disease), cervical Gastric reflux HTN (hypertension) Kidney stone Past Surgical History: Procedure Laterality Date ANTERIOR CERVICAL DISCECTOMY W/ FUSION 2018 hardware removal 02/2019 APPENDECTOMY BOWEL RESECTION 2008 COLONOSCOPY KIDNEY STONE SURGERY NEPHROSTOGRAM THROUGH EXISTING CATHETER LEFT Left 04/19/2020 Family History Problem Relation Age of Onset Heart attack Father Anesthesia problems Neg Hx Social History Tobacco Use Smoking status: Former Packs/day: 1.50 Types: Cigarettes Start date: 1993 Quit date: 2002 Years since quittin.6 Smokeless tobacco: Never Substance and Sexual Activity Drug use: No Sexual activity: None Alcohol Use: Unknown (03/14/2022) AUDIT-C Frequency of Alcohol Consumption: Monthly or less Average Number of Drinks: Not on file Frequency of Binge Drinking: Not on file Allergies Allergen Reactions Iodinated Contrast Media Rash Current Outpatient Medications Medication Sig Dispense Refill colestipoL (COLESTID) 1 gram tablet Take 2 tablets (2 g total) by mouth 2 (two) times a day 360 tablet 1 cyanocobalamin, vitamin B-12, 5,000 mcg tablet, sublingual Place 1 tablet under the tongue banana room cutter before breakfast diphenhydrAMINE (BENADRYL) 25 mg capsule Take 25 mg by mouth nightly as needed for itching (Patientnot taking: Reported on 04/03/2023) losartan-hydrochlorothiazide (HYZAAR) 100-25 mg per tablet Take 1 tablet by mouth nightly melatonin 5 mg tablet Take 5 mg by mouth nightly as needed (Patient not taking: Reported on 04/03/2023) multivitamin capsule Take 1 capsule by mouth banana room cutter before breakfast tamsulosin (FLOMAX) 0.4 mg extended release capsule Take 2 capsules (0.8 mg total) by mouth capsule 0 traZODone (DESYREL) 100 mg tablet TAKE 2 TABLETS (100 MG) BY ORAL ROUTE AT BEDTIME ustekinumab (STELARA) injection Inject 1 mL (90 mg total) under the skin every 8 (eight) weeks 1 mL0 zolpidem (AMBIEN) 5 mg tablet (Patient not taking: No sig reported) 0 No current facility-administered medications for this visit. The new patient intake form was reviewed with the patient on @DATE@. Review of Systems: Constitutional: Negative. HENT: Negative for sore throat and trouble swallowing. Eyes: Negative. Respiratory: Negative. Cardiovascular: Negative. Gastrointestinal: See HPI Endocrine: Negative. Genitourinary: Negative. Musculoskeletal: Negative. Skin: Negative. Allergic/Immunologic: Negative. Neurological: Negative. Hematological: Negative. Psychiatric/Behavioral: Negative. Breast: Negative. Vital Signs: BP 120/79 Pulse 90 Ht 188 cm (6' 2 ) Wt 107.9 kg (237 lb 12.8 oz) SpO2 98% BMI 30.53 kg/m?? Physical Exam: GENERAL: Well-appearing, in no acute [...] with normal insight, memory, affect, and orientation Labs: No visits with results within 3 Month(s) from this visit. Latest known visit with results is: Hospital Outpatient Visit on 12/21/2021 Component Date Value Ref Range Status Creatinine, POC, bld 12/21/2021 1.1 0.6 - 1.3 mg/dL Final POC Device Number 12/21/2021 [id number] Final POC Performer 12/21/2021 [id number] Final Imaging Review None ASSESSMENT and PLAN: Crohn's disease of both small and large intestine with other complication (HCC) CD with urgency. Will proceed with colon. Continuing the stelara. At least for now. No follow-ups on file. Corbin Duque MD, FACP, FACG, AGAJUSTEN Guy plastic tubing insulation supervisor [facility] Gastroenterology Division [facility] [address] [place] [address] Academic office [phone] documented in this encounter Miscellaneous Notes * Assessment & Plan Note - Corbin Duque MD - 04/03/2023 10:02 AM CDT Associated Problem(s): Crohn's disease of both small and large intestine with other complication (HCC) CD with urgency. Will proceed with colon. Continuing the stelara. At least for now. * Addendum Note - Rain Zendejas - 04/03/2023 10:00 AM CDTAddended by: RAIN ZENDEJAS on: 04/03/2023 10:48 AM Modules accepted: Orders * Addendum Note - Rain Zendejas - 04/03/2023 10:00 AM CDTAddended by: RAIN ZENDEJAS on: 04/03/2023 10:49 AM Modules accepted: Orders * Addendum Note - Rain Zendejas - 04/03/2023 10:00 AM CDTAddended by: RAIN ZENDEJAS on: 04/03/2023 10:49 AM Modules accepted: Orders * Addendum Note - Rain Zendejas - 04/03/2023 10:00 AM CDTAddended by: RAIN ZENDEJAS on: 04/03/2023 10:49 AM Modules accepted: Orders documented in this encounter Plan of Treatment Not on file documented as of this encounter Visit Diagnoses Diagnosis 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
--- OUTSIDE RECORDS SUMMARY | 2024-08-23 08:02 | XMS_ITS | Encounter Summary ---
Author Organization 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 Gender Identity Male 02/04/2019 10:52 AM CDT Sexual Orientation Straight 02/04/2019 10 :52 AM CDT documented as of this encounter Plan of Treatment Not on file documented as of this encounter Procedures Procedure Name Priority Date/Time Associated Diagnosis Comments SCAN - LABS 10/07/2023 documented in this encounter Results * SCAN - LABS (10/07/2023) us Provider Scanning Final Result documented in this encounter Visit Diagnoses Not on filedocumented in this encounter Care Teams Community Service Aide Relationship Specialty Start Date End Date Jayla Phoenix MD [address] [place] [address] PCP - General 08/07/17 documented as of this encounter
--- OUTSIDE RECORDS SUMMARY | 2024-08-23 08:03 | XMS_ITS | Encounter Summary ---
Author Organization [facility] Healthcare Address [address] [place] [address] Care Team Providers Care Software Quality Tester Name Role Phone Jayla Phoenix MD Primary Care Provider [phone] Reason for Referral * Diagnostic Imaging (Routine) - Closed Specialty Diagnoses / Procedures Referred By Elina senior Referred To Contact Diagnoses Bilateral nephrolithiasis Procedures US Kidney Complete Hipolito Reyes MD Phone: tel: fax: [place] [phone] [place] [phone] Referral ID Status Reason Start Date Expiration Date Visits Re quested Visits Authorized [id number] Closed 12/21/2020 01/20/2022 1 1 Reason for Visit * Diagnostic Imaging (Routine) - Closed Specialty Diagnoses / Procedures Referred By Elina senior Referred To Contact Diagnoses Bilateral nephrolithiasis Procedures Kidney Complete Hipolito Reyes MD Phone: tel: fax: [place] [phone] [place] [phone] Referral ID Status Reason Start Date Expiration Date Visits Re quested Visits Authorized [id number] Closed 12/21/2020 01/20/2022 1 1 Encounter Details Date Type Department Care Team (Latest Contact Info) Description 12/21/2021 9:00 AM CDT - 12/21/2021 9:04 AM CDT Hospital Encounter [facility] [address] [address] [place] [address] [place] [address] [place] [address] Bilateral nephrolithiasis Discharge Disposition: Discharge to home [...] you have a drink containing alc ohol? 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 Gender Identity Male 02/04/2019 10:52 AM CDT Sexual Orientation Straight 02/04/2019 10 :52 AM CDT documented as of this encounter Medications at Time of Discharge cyanocobalamin, vitamin B-12, 5,000 mcg tablet, sublingualIndicatio ns:Prevention of Vitamin B12 Deficiency Place 1 tablet under the tongue early childhood associate teacher before breakfast losartan-hydrochlor othiazide (HYZAAR) 100-25 mg per tabletIndications:h ypertension Take 1 tablet by mouth nightly 02/23/2019 multivitamin capsuleIndications: Vitamin Deficiency Prevention Take 1 capsule by mouth early childhood associate teacher before breakfast cholestyramine-aspa rtame 4 gram powderIndications: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 Take 1 Scoop by mouth 2 (two) times a day 210 g 8 10/11/2021 2 diphenhydrAMINE (BENADRYL) 25 mg capsuleIndications: sleep Take 25 mg by mouth nightly as needed for itching 3 melatonin 5 mg tabletIndications:s leep Take 5 mg by mouth nightly as needed 3 tamsulosin (FLOMAX) 0.4 mg extended release capsuleIndications: Nephrolithiasis Take 1 capsule (0.4 mg total) by mouth nightly 30 capsule 11 09/21/2021 2 traZODone (DESYREL) 50 mg tablet 12/21/2020 3 ustekinumab (Stelara) injection Inject 1 mL (90 mg total) under the skin every 8 (eight) weeks 1 mL 1 11/28/2021 2 zolpidem (AMBIEN) 5 mg tablet 0 12/01/2020 3 documented as of this encounter Discharge Disposition Disposition Code Departure Means Destination Discharge to home or self care documented in this encounter Plan of Treatment Not on file documented as of this encounter Procedures Procedure Name Priority Date/Time Associated Diagnosis Comments US KIDNEY COMPLETE Schedule Routine, Read Routine (OP Routine) 12/21/2021 9:36 AM CDT Bilateral nephrolithiasis documented in this encounter Results * US Kidney Complete (12/21/2021 9:36 AM CDT) Anatomical Region Laterality Modality Kidney N/A Ultrasound 12/21/2021 11:0 1 AM CDT Impressions 12/21/2021 4:46 PM CDT 1. Stable nonobstructing right upper and left lower renal stones. No hydronephrosis. Dictated by: Carmenza Espinoza M.D. The radiology attending physician has personally reviewed this study, and had reviewed and/or edited this written report and agrees with it. Electronically signed by: Angel Arredondo M.D. Narrative 12/21/2021 4:46 PM CDT EXAMINATION: COMPLETE RENAL SONOGRAM HISTORY: ??Nephrolithiasis, follow-up COMPARISON: ??12/19/2020 FINDINGS: ?? Kidneys: The echogenicity of both kidneys is normal. The kidneys are normal in size. ??The right kidney measures 11.8 cm in length, and the left, 10.8 cm in length. There is no hydronephrosis in either kidney. There is a right upper pole renal stone measuring up to 1 cm, unchanged. There is a left lower pole renal stone measuring up to 1.3 cm, unchanged. Again seen is a small left lower pole milk of calcium cyst. Bladder: The urinary bladder is normal. Bilateral ureteral jets are visualized. Procedure Note Angel Arredondo MD - 12/21/2021 EXAMINATION: COMPLETE RENAL SONOGRAM HISTORY: Nephrolithiasis, follow-up COMPARISON: 12/19/2020 FINDINGS: Kidneys: The echogenicity of both kidneys is normal. The kidneys are normal in size. The right kidney measures 11.8 cm in length, and the left, 10.8 cm in length. There is no hydronephrosis in either kidney. There is a right upper pole renal stone measuring up to 1 cm, unchanged. There is a left lower pole renal stone measuring up to 1.3 cm, unchanged. Again seen is a small left lower pole milk of calcium cyst. Bladder: The urinary bladder is normal. Bilateral ureteral jets are visualized. IMPRESSION: 1. Stable nonobstructing right upper and left lower renal stones. No hydronephrosis. Dictated by: Carmenza Espinoza M.D. The radiology attending physician has personally reviewed this study, and had reviewed and/or edited this written report and agrees with it. Electronically signed by: Angel Arredondo M.D. Hipolito Reyes MD IMG US PROCEDURES F inal Result documented in this encounter Visit Diagnoses Diagnosis Bilateral nephrolithiasis documented in this encounter Care Teams Software Quality Tester Relationship Specialty Start Date End Date Jayla Phoenix MD [address] [place] [address] PCP - General 08/07/17 documented as of this encounter
--- OUTSIDE RECORDS SUMMARY | 2024-08-23 08:03 | XMS_ITS | Encounter Summary ---
Author Organization [facility] Address [address] [place] [address] Phone Care Team Providers Care Rural Sociologist Name Role Phone Jayla Phoenix MD Primary Care Provider [phone] Encounter Details Date Type Department Care Team (Late st Contact Info) Description 08/07/2021 Orders Only [facility] Gastroenterology [address] [facility] 8th [place] [address] [place] [id number] Corbin Duque MD [address] [place] [address] Social History Tobacco Use Types Packs/Day Years Used Date Smoking Tobacco: Former Cigarettes 1.5 9 1 994 - 2002 Smokeless Tobacco: Never Alcohol Use Standard Drinks/Week Comments Not Currently 0 (1 standard drink = 0.6 oz pur e alcohol) AUDIT-C Answer Date Recorded Q1: How often do you have a drink containing alc ohol? Monthly or less 02/06/2021 Q2: How many drinks containi ng alcohol do you have on a typical day when you are drinking? 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 Gender Identity Male 02/04/2019 10:52 AM CDT Sexual Orientation Straight 02/04/2019 10 :52 AM CDT documented as of this encounter Ordered Prescriptions Prescription Sig Dispense Quantity Refills Last Filled Start Date End Date ustekinumab (Stelara) injection Inject 1 mL (90 mg total) under the skin every 8 (eight) weeks 1 mL 1 08/07/2021 09/26/2021 documented in this encounter Plan of Treatment Not on file documented as of this encounter Visit Diagnoses Not on filedocumented in this encounter Discontinued Medications Medication Sig Discontinue Reason Start Date End Da te ustekinumab (Stelara) injection Inject 1 mL (90 mg total) under the skin every 8 (eight) weeks Reorder 04/27/2021 08/07/2021 documented as of this encounter Care Teams Rural Sociologist Relationship Specialty Start Date End Date Jayla Phoenix MD [address] [place] [address] PCP - General 08/07/17 documented as of this encounter
--- OUTSIDE RECORDS SUMMARY | 2024-08-23 08:03 | XMS_ITS | Encounter Summary ---
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 Kristen Kimball MD Monti, Kelly A., RN Looks good. No open fistula. No active inflammation Dr. Dunia Townsend is out but I sent your results to the covering physician and he noted that the MRE looks good. No open fistula. No active inflammation. Please let me know if you have any questions. Do youwant to set up an in office appt for 6 months (from Sep which puts us in March) or a zoom? Thank you, Michelle documented in this encounter Plan of Treatment Not on file documented as of this encounter Visit Diagnoses Not on filedocumented in this encounter Care Teams Linux Administrator Relationship Specialty Start Date End Date Jayla Phoenix MD [address] [place], [place] [id number] PCP - General 08/07/17 documented as of this encounter
--- OUTSIDE RECORDS SUMMARY | 2024-08-23 08:03 | XMS_ITS | Encounter Summary ---
Author Organization [facility] Address [address] [place] [address] Phone Care Team Providers Care Slat Basket Top Maker Name Role Phone Jayla Phoenix MD Primary Care Provider [phone] Reason for Visit * Reason Onset Date Comments Prior Auth 04/18/2022 [place] Encounter Details Date Type Department Care Team (Late st Contact Info) Description 04/18/2022 Telephone [facility] Gastroenterology [address] 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 CMM Valenzuela: BRARBYVY Stelara 90mg/ml syringe Qty 1 every 56 days No PA required documented in this encounter Plan of Treatment Not on file documented as of this encounter Visit Diagnoses Not on filedocumented in this encounter Care Teams Slat Basket Top Maker Relationship Specialty Start Date End Date Jayla Phoenix MD [address] [place] [id number] PCP - General 08/07/17 documented as of this encounter
--- OUTSIDE RECORDS SUMMARY | 2024-08-23 08:03 | XMS_ITS | Encounter Summary ---
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 Gender Identity Male 02/04/2019 10:52 AM CDT Sexual Orientation Straight 02/04/2019 10 :52 AM CDT documented as of this encounter Plan of Treatment Not on file documented as of this encounter Procedures Procedure Name Priority Date/Time Associated Diagnosis Comments SCAN - LABS 03/26/2022 documented in this encounter Results * SCAN - LABS (03/26/2022) us Provider Scanning Edited Result - Final documented in this encounter Visit Diagnoses Not on filedocumented in this encounter Care Teams Sales Development Manager Relationship Specialty Start Date End Date Jayla Phoenix MD [address] [place] [address] PCP - General 08/07/17 documented as of this encounter
--- OUTSIDE RECORDS SUMMARY | 2024-08-23 08:03 | XMS_ITS | Encounter Summary ---
Author Organization 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 Gender Identity Male 02/04/2019 10:52 AM CDT Sexual Orientation Straight 02/04/2019 10 :52 AM CDT documented as of this encounter Plan of Treatment Not on file documented as of this encounter Procedures Procedure Name Priority Date/Time Associated Diagnosis Comments SCAN - LABS 09/18/2022 documented in this encounter Results * SCAN - LABS (09/18/2022) us Provider Scanning Final Result documented in this encounter Visit Diagnoses Not on filedocumented in this encounter Care Teams Field Service Coordinator Relationship Specialty Start Date End Date Jayla Phoenix MD [address] [place] [address] PCP - General 08/07/17 documented as of this encounter
--- OUTSIDE RECORDS SUMMARY | 2024-08-23 08:03 | XMS_ITS | Encounter Summary ---
Author Organization [facility] Address [address] [place] [address] Phone Care Team Providers Care Jig Filler Name Role Phone Jayla Phoenix MD Primary Care Provider [phone] Encounter Details Date Type Department Care Team (Late st Contact Info) Description 07/26/2021 Orders Only [facility] Gastroenterology [address] [facility] [address] [place] [address] Corbin Duque MD [address] [place] [address] High risk medications (not anticoagulants) long-term use (Primary Dx); Crohn's disease of both small and large intestine with complication (CMS/HCC) (HCC) Social History Tobacco Use Types Packs/Day [...] on file 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 Gender Identity Male 02/04/2019 10:52 AM CDT Sexual Orientation Straight 02/04/2019 10 :52 AM CDT documented as of this encounter Ordered Prescriptions Prescription Sig Dispense Quantity Refills Last Filled Start Date End Date cholestyramine-aspa rtame 4 gram powderIndications:f or bowel resection Take 1 Scoop by mouth 2 (two) times a day 210 g 8 07/26/2021 10/11/2021 documented in this encounter Plan of Treatment Not on file documented as of this encounter Visit Diagnoses Diagnosis High risk medications (not anticoagulants) long-term use- Primary Encounter for long-term (current) use of other medications Crohn's disease of both small and large intestine with complication (HCC) documented in this encounter Discontinued Medications Medication Sig Discontinue Reason Start Date End Da te cholestyramine-aspartame 4 gram powderIndications:for bowel resection Take 1 Scoop by mouth 2 (two) times a day Reorder 01/17/2021 07/26/2021 documented as of this encounter Care Teams Jig Filler Relationship Specialty Start Date End Date Jayla Phoenix MD [address] [place] [address] PCP - General 08/07/17 documented as of this encounter
--- OUTSIDE RECORDS SUMMARY | 2024-08-23 08:03 | XMS_ITS | Encounter Summary ---
Author Organization [facility] Address [address] [place] [address] Phone Care Team Providers Care Public Housing Interviewer Name Role Phone Jayla Phoenix MD Primary Care Provider [phone] Reason for Visit * Reason Onset Date Comments Med Management 04/02/2022 Encounter Details Date Type Department Care Team (Late st Contact Info) Description 04/02/2022 Documentation [facility] Gastroenterology [address] [facility] 12th [place] [address] [place] [address] Michelle Hazel RN Med Management Social History Tobacco Use Types [...] on file 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 Kristian Vasques to Me SP ?? 04/02/22 2:56 PM The new medication that he put me on the pill form of cholestyramine. Anyway I think I need to takemore than one pill? The urgency is there and it???s not there with the powder form. ?? Thanks Kristian Me to Kristian Vasques KM ?? 04/02/22 3:04 PM 1 pill twice a day is what you are taking? You can take 2 pills twice a day. Let me know how that works and I can send in a new prescription. Last read by Kristian Vasques at 5:08 PM on 04/02/2022. Kristian Vasques to Me SP ?? 04/02/22 5:09 PM Yes 1 pill twice a day. I will try the two twice a day and let you know thank you documented in this encounter Plan of Treatment Not on file documented as of this encounter Visit Diagnoses Not on filedocumented in this encounter Care Teams Public Housing Interviewer Relationship Specialty Start Date End Date Jayla Phoenix MD [address] [place] [address] PCP - General 08/07/17 documented as of this encounter
--- OUTSIDE RECORDS SUMMARY | 2024-08-23 08:03 | XMS_ITS | Encounter Summary ---
Author Organization [facility] Address [address] [place] [address] Phone Care Team Providers Care Test Borer Name Role Phone Jayla Phoenix MD Primary Care Provider [phone] Reason for Visit * Reason Comments Nephrolithiasis * Consultation (Routine) - Canceled Specialty Diagnoses / Procedures Referred By Elina senior Referred To Contact Urology Diagnoses Follow up Jayla Phoenix MD [address] [place] [address] Phone: tel: fax: [facility] (All Locations) Referral ID Status Reason Start Date Expiration Date Visits Requested Visits Authorized [id number] Canceled Specialty Services Required 11/22/2021 01/21/2022 99 99 Encounter Details Date Type Department Care Team (Late st Contact Info) Description 12/27/2021 2:20 PM CDT Telemedicine [facility] Urology [address] [facility] [address] [place] [address] Hipolito Reyes MD [address] [place] [address] Nephrolithiasis (Primary Dx); Benign prostatic hyperplasia with [...] on file 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 During the visit, I was located in the office and the [facility]. The patient visit started at 2:35p and ended at 2:45p. Greater than 50% of the visit was spent on counseling and coordinating care. Patient was counseled on management of nephrolithiasis and LUTS.. The patient has been informed that the visit may not be secure and acknowledged the information. I have explained the option of participating in a telephone or video visit during the COVID-19 public health emergency to the patient. After being given an opportunity to ask questions about and discuss this type of visit, the patient verbally consented to proceeding with the telephone/video visit.The patient understands that this service replaces an office visit and they may be billed and/or responsible for any applicable copayments. Chief Complaint: Chief Complaint Patient presents with ??? Nephrolithiasis History of Present Illness: Kirstian Vasques is a 51 y.o. male with hx of Crohn's disease and nephrolithiasis. He has had a renal ultrasound that shows stability of stones and left lower pole calyceal dilation. He does get someleft flank discomfort periodically. He is still taking the citracal. He has been taking the tamsulosin 0.4 mg nightly since September 2021 for urinary frequency, which he feels like is better controlled with the medication. He drinks a lot of fluid during the weekdays but less so on the weekends. The patient's past medical, surgical, medication, allergy, family, and social histories were reviewed and noncontributory to this illness/condition except as noted below: The patient's past medical history is notable for: Past Medical History: Diagnosis Date ??? Colon polyp ??? Crohn's disease (CMS/HCC) (HCC) 2000 ??? DDD (degenerative disc disease), cervical ??? Gastric reflux ??? HTN (hypertension) ??? Kidney stone The patient's past surgical history is notable for: Past Surgical History: Procedure Laterality Date ??? ANTERIOR CERVICAL DISCECTOMY W/ FUSION 2018 hardware removal 02/2019 ??? APPENDECTOMY ??? BOWEL RESECTION 2008 ??? COLONOSCOPY ??? KIDNEY STONE SURGERY ??? NEPHROSTOGRAM THROUGH EXISTING CATHETER LEFT Left 04/19/2020 The patient is currently taking the following medications: Current Outpatient Medications Medication Sig Dispense Refill ??? cholestyramine-aspartame 4 gram powder Take 1 Scoop by mouth 2 (two) times a day 210 g 8 ??? cyanocobalamin, vitamin B-12, 5,000 mcg tablet, sublingual Place 1 tablet under the tongue tailer out before breakfast ??? diphenhydrAMINE (BENADRYL) 25 mg capsule Take 25 mg by mouth nightly as needed for itching ??? losartan-hydrochlorothiazide (HYZAAR) 100-25 mg per tablet Take 1 tablet by mouth nightly ??? melatonin 5 mg tablet Take 5 mg by mouth nightly as needed ??? multivitamin capsule Take 1 capsule by mouth tailer out before breakfast ??? tamsulosin (FLOMAX) 0.4 mg extended release capsule Take 2 capsules (0.8 mg total) by mouth nightly 180 capsule 3 ??? traZODone (DESYREL) 50 mg tablet ??? ustekinumab (Stelara) injection Inject 1 mL (90 mg total) under the skin every 8 (eight) weeks 1 mL 1 ??? zolpidem (AMBIEN) 5 mg tablet (Patient not taking: Reported on 10/11/2021) 0 No current facility-administered medications for this visit. The patient is allergic to: Allergies Allergen Reactions ??? Iodinated Contrast Media Rash The patient's past family history is notable for: Family History Problem Relation Age of Onset ??? Heart attack Father ??? Anesthesia problems Neg Hx The patient's past social history is notable for: Social History Socioeconomic History ??? Marital status: Spouse name: Not on file ??? Number of children: Not on file ??? Years of education: Not on file ??? Highest education level: Not on file Occupational History ??? Not on file Tobacco Use ??? Smoking status: Former Smoker Packs/day: 1.50 Types: Cigarettes Start date: 1993 Quit date: 2002 Years since quittin.3 ??? Smokeless tobacco: Never Used Substance and Sexual Activity ??? Alcohol use: Not Currently ??? Drug use: No ??? Sexual activity: Not on file Other Topics Concern ??? Not on file Social History Narrative ??? Not on file Social Determinants of Health Financial Resource Strain: Not on file Food Insecurity: Not on file Transportation Needs: Not on file Physical Activity: Not on file Stress: Not on file Social Connections: Not on file Intimate Partner Violence: Not on file Housing Stability: Not on file Objective: Physical Exam There were no vitals filed for this visit. Gen: NAD Neuro: Alert, conversation appropriate Skin: No rashes or lesions of exposed skin Head: normocephalic Eyes: no strabismus Neck: trachea midline. Pulm: respirations non-labored Exam via zoom The following lab results were personally reviewed [...] 2.7 04/14/2020 No results found for: PSA The following images were independently reviewed by me. US Kidney Complete 12/21/2021 Narrative EXAMINATION: COMPLETE RENAL SONOGRAM HISTORY: Nephrolithiasis, follow-up [...] is normal. Bilateral ureteral jets are visualized. Impression 1. Stable nonobstructing right upper and left lower renal stones. No hydronephrosis. Dictated by: Carmenza Espinoza M.D. The radiology attending physician has personally reviewed this study, and had reviewed and/or edited this written report and agrees with it. Electronically signed by: Angel Arredondo M.D. Orders: Orders Placed This Encounter ??? tamsulosin (FLOMAX) 0.4 mg extended release capsule Sig: Take 2 capsules (0.8 mg total) by mouth nightly Dispense: 180 capsule Refill: 3 Assessment: Kristian Vasques is a 51 y.o. male with the following diagnoses: (N20.0) Nephrolithiasis (primary encounter diagnosis) Plan: tamsulosin (FLOMAX) 0.4 mg extended release capsule (N40.1, R35.0) Benign prostatic hyperplasia with urinary frequency Plan: Will plan on surveillance of stones with annual renal ultrasound. Did discuss that if symptoms worsen or stones become larger then we can pursue surgical removal. Will also update [facility] prior to visit next year. Continue citracal with meals Discussed urinary symptoms and gave the option of increasing tamsulosin to 0.8 mg. He would like totry this so have increased the dose. Thank you for allowing us to participate in the care of this patient. Please do not hesitate to contact us should you have any questions or concerns at [phone]. documented in this encounter Plan of Treatment Not on file documented as of this encounter Visit Diagnoses Diagnosis Nephrolithiasis- Primary Calculus of kidney Benign prostatic hyperplasia with urinary frequency documented in this encounter Discontinued Medications Medication Sig Discontinue Reason Start Date End Da te tamsulosin (FLOMAX) 0.4 mg extended release capsuleIndications:Nephr olithiasis Take 1 capsule (0.4 mg total) by mouth nightly Reorder 09/21/2021 12/27/2021 documented as of this encounter Care Teams Test Borer Relationship Specialty Start Date End Date Jayla Phoenix MD [address], [place] [id number] PCP - General 08/07/17 documented as of this encounter
--- OUTSIDE RECORDS SUMMARY | 2024-08-23 08:03 | XMS_ITS | Encounter Summary ---
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 Thank you VERY COLLECTOR documented in this encounter Plan of Treatment Not on file documented as of this encounter Visit Diagnoses Not on filedocumented in this encounter Care Teams Hat Model Relationship Specialty Start Date End Date Jayla Phoenix MD [address] [place] [address] PCP - General 08/07/17 documented as of this encounter
--- OUTSIDE RECORDS SUMMARY | 2024-08-23 08:03 | XMS_ITS | Encounter Summary ---
Author Organization [facility] Address [address] [place] [address] Phone Care Team Providers Care Med Admin Name Role Phone Jayla Phoenix MD Primary Care Provider [phone] Reason for Visit * Reason Onset Date Comments Lab Results 04/27/2021 Encounter Details Date Type Department Care Team (Late st Contact Info) Description 04/27/2021 Documentation [facility] Gastroenterology [address] [facility] Medicine 8th [place] [address] [place] [address] Michelle Hazel RN Lab Results Social History Tobacco Use [...] on file 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
--- OUTSIDE RECORDS SUMMARY | 2024-08-23 08:03 | XMS_ITS | Encounter Summary ---
Author Organization [facility] Address [address] [facility] [address] [place] [address] Phone Care Team Providers Care Entry Level Sales Consultant Name Role Phone Jayla Phoenix MD Primary Care Provider [phone] Reason for Visit * Consultation (Routine) - Closed Specialty Diagnoses / Procedures Referred By Contac t Referred To Contact Gastroenterology Diagnoses 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) Jayla Phoenix MD [address] [place] [address] Phone: tel: fax: [facility] (All Locations) Referral ID Status Reason Start Date Expiration Date V isits Requested Visits Authorized [id number] Closed Specialty Services Required 10/04/2021 08/18/2023 12 12 Encounter Details Date Type Department Care Team (Late st Contact Info) Description 03/14/2022 10:40 AM CDT Office Visit [facility] Gastroenterology [facility] Medical Office Building [address] [place] [address] Corbin Duque MD [address] [place] [address] Crohn's disease of both small [...] file 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 Gender Identity Male 02/04/2019 10:52 AM CDT Sexual Orientation Straight 02/04/2019 10 :52 AM CDT documented as of this encounter Last Filed Vital Signs Vital Sign Reading Time Taken Comments Blood Pressure 118/80 03/14/2022 10:37 AM CDT Pulse 78 03/14/2022 10:37 AM CDT Temperature 36.6 ??C (97.8 ??F) 03/14/2022 1 0:37 AM CDT Respiratory Rate - - Oxygen Saturation - - Inhaled Oxygen Concentration - - Weight 100.5 kg (221 lb 9.6 oz) 022 10:37 AM CDT Height 188 cm (6' 2 ) 03/14/2022 10:37 AM CDT Body Mass Index 28.45 03/14/2022 10:37 AM CDT documented in this encounter Patient Instructions * Patient Instructions* Michelle Hazel RN - 03/14/2022 10:40 AM CDT Labs locally Colestipol 1 gm twice daily Follow up in 6 months documented in this encounter Ordered Prescriptions Prescription Sig Dispense Quantity Refills Last Filled Start Date End Date colestipoL (COLESTID) 1 gram tablet Take 1 tablet (1 g total) by mouth 2 (two) times a day 60 tablet 11 03/14/2022 04/09/2022 documented in this encounter Progress Notes * Corbin Duque MD - 03/14/2022 10:40 AM CDT Images from the original note were not included. [facility] Corbin Duque MD, FACP, FACG, AGAJUSTEN Guy gardening instructor Subjective NAME: Kristian Vasques : 1970 DATE: 03/14/2022 Referred here Primary Care Physician: Jayla Phoenix MD Consult requested by: Referral, Self Chief Complaint: Crohn's disease HPI Kristian Vasques, is a 51 y.o.male who presents for same. He is doing well currently with one formed bm/day. Some arthralgias. No other EIM's. Appetite good. Wt stable. Patient Active Problem List Diagnosis Date Noted ??? Crohn's disease of small and large intestines with complication (CMS/HCC) (HCC) 12/21/2020 Added automatically from request for surgery [id number] ??? Hyperoxaluria 12/21/2020 ??? Benign prostatic hyperplasia with urinary frequency 09/13/2020 ??? High risk medications (not anticoagulants) long-term use 05/18/2020 ??? Bilateral nephrolithiasis 04/05/2020 Added automatically from request for surgery [id number] ??? 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) 03/03/2020 Added automatically from request for surgery [id number] ??? Crohn's disease of both small and large [...] on direct and retroflexion views. Diagnosis: A. ??Small intestine, terminal ileum, biopsy ? - Normal small intestinal mucosa ? B. ??Small intestine, ileum anastamosis site erosion, biopsy ? - Enteric mucosa with focal acute enteritis ? C. ??Large intestine, transverse colon, biopsy ? - Normal colonic mucosa ? D. ??Large intestine, sigmoid colon, biopsy ? - Normal colonic mucosa ? E. ??Large intestine, rectum, biospy ? - Normal colonic mucosa ? Colonoscopy 04/04/2020 A few ulcers in the terminal ileum. Biopsied. - Simple Endoscopic Score for Crohn's Disease: 3, mucosal inflammatory changes secondary to Crohn's disease with ileitis. Biopsied. PATH: A. ??Small intestine, eliud terminal ileum, biopsy ? - Small intestinal mucosa with acute ileitis B. ??Large intestine, transverse, biopsy ? - Normal colonic mucosa C. ??Large intestine, sigmoid, biopsy ? - Normal colonic mucosa D. ??Large intestine, rectum, biopsy ? - Normal colonic mucosa ? Imaging: MRE 12/2021 ??IMPRESSION: 1. Fibrotic tissue in the region of [...] in thickness compared to the prior exam. ??2. No new site of inflammation identified in the small or large bowel loops. No evidence of bowel obstruction. ??3. Unchanged left renal stones. Left inferior calyceal [...] the ileocolic anastomosis with active inflammatory changes. ?? 2. Suspected obstructing 1.2 cm left ureteral calculus at the ureteropelvic junction.0 [facility]INTE[employer]NCE HBV vaccination status: Non immune Covid vaccine: Unknown ??? Cervical disc herniation 02/02/2019 Added automatically from request for surgery [id number] ??? Cervical radiculopathy 02/02/2019 Added automatically from request for surgery [id number] ??? Fusion of spine of cervical region 02/02/2019 Added automatically from request for surgery [id number] ??? Cervical radiculopathy at C7 01/23/2019 ??? Cervical pain (neck) 09/03/2017 Past Medical History: Diagnosis Date ??? Colon polyp ??? Crohn's disease (CMS/HCC) (HCC) 2000 ??? DDD (degenerative disc disease), cervical ??? Gastric reflux ??? HTN (hypertension) ??? Kidney stone Past Surgical History: Procedure Laterality Date ??? ANTERIOR CERVICAL DISCECTOMY W/ FUSION 2017 hardware removal 02/2019 ??? APPENDECTOMY ??? BOWEL RESECTION 2008 ??? COLONOSCOPY ??? KIDNEY STONE SURGERY ??? NEPHROSTOGRAM THROUGH EXISTING CATHETER LEFT Left 04/19/2020 Family History Problem Relation Age of Onset ??? Heart attack Father ??? Anesthesia problems Neg Hx Social History Tobacco Use ??? Smoking status: Former Smoker Packs/day: 1.50 Types: Cigarettes Start date: 1993 Quit date: 2003 Years since quittin.5 ??? Smokeless tobacco: Never Used Substance and Sexual Activity ??? Drug use: No ??? Sexual activity: None Alcohol Use: Unknown ??? Frequency of Alcohol Consumption: Monthly or less ??? Average Number of Drinks: Not on file ??? Frequency of Binge Drinking: Not on file Allergies Allergen Reactions ??? Iodinated Contrast Media Rash Current Outpatient Medications Medication Sig Dispense Refill ??? cyanocobalamin, vitamin B-12, 5,000 mcg tablet, sublingual Place 1 tablet under the tongue swat team member before breakfast ??? diphenhydrAMINE (BENADRYL) 25 mg capsule Take 25 mg by mouth nightly as needed for itching ??? losartan-hydrochlorothiazide (HYZAAR) 100-25 mg per tablet Take 1 tablet by mouth nightly ??? melatonin 5 mg tablet Take 5 mg by mouth nightly as needed ??? multivitamin capsule Take 1 capsule by mouth swat team member before breakfast ??? tamsulosin (FLOMAX) 0.4 mg extended release capsule Take 2 capsules (0.8 mg total) by mouth nightly 180 capsule 3 ??? traZODone (DESYREL) 50 mg tablet ??? ustekinumab (Stelara) injection Inject 1 mL (90 mg total) under the skin every 8 (eight) weeks 1 mL 1 ??? colestipoL (COLESTID) 1 gram tablet Take 1 tablet (1 g total) by mouth 2 (two) times a day 60 tablet 11 ??? zolpidem (AMBIEN) 5 mg tablet (Patient [...] Psychiatric/Behavioral: Negative. Breast: Negative. Vital Signs: BP 118/80 Pulse 78 Temp 36.6 ??C (97.8 ??F) Ht 188 cm (6' 2 ) Wt 100.5 kg (221 lb 9.6 oz) BMI 28.45 kg/m?? Physical Exam: GENERAL: Well-appearing, in no [...] normal insight, memory, affect, and orientation Labs: Hospital Outpatient Visit on 12/21/2021 Component Date Value Ref Range Status ??? Creatinine, POC, bld 12/21/2021 1.1 0.6 - 1.3 mg/dL Final ??? POC Device Number 12/21/2021 [id number] Final ??? POC Performer 12/21/2021 [id number] Final Imaging Review None ASSESSMENT and PLAN: Crohn's disease of both small and large intestine with other complication (HCC) CD doing well on stelara rx. Will continue same and f/up in 6 mo. Truly doing well. His only quibble is before seeing us he could eat anything he wanted and not gain wt. Since seeing us and on the appropriate meds he now gains wt and cannot lose it! Will go with colestipol and see if that does ok for him. Return in about 6 months (around 09/14/2022). Corbin Duque MD, FACP, FACG, AGAMalena, JUSTEN gardening instructor [facility] Gastroenterology Division [facility] [address] [place] [address] Academic office [phone] documented in this encounter Miscellaneous Notes * Assessment & Plan Note - Corbin Duque MD - 03/14/2022 10:52 AM CDT Associated Problem(s): Crohn's disease of both small and large intestine with other complication (HCC) CD doing well on stelara rx. Will continue same and f/up in 6 mo. Truly doing well. His only quibble is before seeing us he could eat anything he wanted and not gain wt. Since seeing us and on the appropriate meds he now gains wt and cannot lose it! Will go with colestipol and see if that does ok for him. documented in this encounter Plan of Treatment Scheduled Orders Name Type Priority Associated Diagnoses Orde r Schedule CBC with auto differential Lab Routine 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) High risk medications (not anticoagulants) long-term use Expected: 03/14/2022, Expires: 03/14/2023 Comprehensive metabolic panel Lab Routine 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) High risk medications (not anticoagulants) long-term use Expected: 03/14/2022, Expires: 03/14/2023 CRP (acute phase) Lab Routine 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) High risk medications (not anticoagulants) long-term use Expected: 03/14/2022, Expires: 03/14/2023 TB test, quantiferon gold Lab Routine 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) High risk medications (not anticoagulants) long-term use Expected: 03/14/2022, Expires: 03/14/2023 documented as of this encounter Visit Diagnoses Diagnosis 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)- Primary High risk medications (not anticoagulants) long-term use Encounter for long-term (current) use of other medications documented in this encounter Discontinued Medications Medication Sig Discontinue Reason Start Date End Da te cholestyramine-aspartame 4 gram powderIndications: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
--- OUTSIDE RECORDS SUMMARY | 2024-08-23 08:03 | XMS_ITS | Encounter Summary ---
Author Organization [facility] Address [address] [place] [address] Phone Care Team Providers Care Quality Rn Name Role Phone Jayla Phoenix MD Primary Care Provider [phone] Reason for Visit * Reason Onset Date Comments Lab Results 04/02/2022 Encounter Details Date Type Department Care Team (Late st Contact Info) Description 04/02/2022 Documentation [facility] Gastroenterology [address] [facility] 12th [place] [address] [place] [address] Michelle Hazel deck hand Results Social History Tobacco Use Types Packs/Day [...] on file 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
--- OUTSIDE RECORDS SUMMARY | 2024-08-23 08:03 | XMS_ITS | Encounter Summary ---
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 For further inquiries please contact the number on the back of the member prescription card. I am not sure why this wasn't going through. The original PA was active when I called to check status. IOVASCULAR OR NURSE * Telephone Encounter - Thea Rodriguez - 10/11/2021 4:54 PM CST ----- Message from Michelle Hazel RN sent at 10/11/2021 4:19 PM CARDIOVASCULAR OR NURSE ----- Richy, I saw this pt today in clinic and he mentioned having issues getting his stelara from [facility] who is new to him, he preciously used [facility]. I called [facility] [employer] to try and solve it and they said it isnot running through b/c it needs a PA. I gave them the number from our PA and they still cant get it to go through. She said Id have to call PA dept with [employer]. Are you able to look into this on line by chance? Thank you IOVASCULAR OR NURSE documented in this encounter Plan of Treatment Not on file documented as of this encounter Visit Diagnoses Not on filedocumented in this encounter Care Teams Turn Sewer Relationship Specialty Start Date End Date Jayla Phoenix MD [address], [place] [id number] PCP - General 08/07/17 documented as of this encounter
--- OUTSIDE RECORDS SUMMARY | 2024-08-23 08:03 | XMS_ITS | Encounter Summary ---
Author Organization [facility] Address [address] [place] [address] Phone Care Team Providers Care Fabric And Accessories Estimator Name Role Phone Jayla Phoenix MD Primary Care Provider [phone] Reason for Referral * Diagnostic Imaging (Routine) - Closed Specialty Diagnoses / Procedures Referred By Contac t Referred To Contact Diagnoses Bilateral nephrolithiasis Procedures US Kidney Complete Hipolito Reyes MD Phone: tel: fax: [address] [address] Referral ID Status Reason Start Date Expiration Date Visits Re quested Visits Authorized [id number] Closed 12/27/2021 01/26/2023 1 1 Encounter Details Date Type Department Care Team (Late st Contact Info) Description 12/27/2021 Orders Only 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 Hipolito Reyes MD IMG US PROCEDURES F inal Result documented in this encounter Visit Diagnoses Diagnosis Bilateral nephrolithiasis- Primary Bilateral nephrolithiasis documented in this encounter Care Teams Fabric And Accessories Estimator Relationship Specialty Start Date End Date Jayla Phoenix MD [address] [place] [address] PCP - General 08/07/17 documented as of this encounter
--- OUTSIDE RECORDS SUMMARY | 2024-08-23 08:03 | XMS_ITS | Encounter Summary ---
Author Organization [facility] Address [address] [place] [address] Phone Care Team Providers Care Fabric Worker Leader Name Role Phone Jayla Phoenix MD Primary Care Provider [phone] Reason for Visit * Reason Onset Date Comments Prior Auth 08/22/2022 Colestipol HCl 1 gm tabs (2 tabs BID) Encounter Details Date Type Department Care Team (Late st Contact Info) Description 08/22/2022 Telephone [facility] Gastroenterology [facility] Medicine 12th [place] [address] [place] [address] Corbin Duque MD [address] [place] [address] Prior Auth (Colestipol HCl 1 gm tabs (2 tabs BID)) Social History Tobacco Use Types Packs/Day Years [...] on file 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 SITION SOCIAL WORKER * Telephone Encounter - Thea Hussein - 08/23/2022 11:49 AM TRANSITION SOCIAL WORKER Rcv'd fax from [facility] stating PA is not required for colestipol. SITION SOCIAL WORKER * Telephone Encounter - Thea Hussein - 08/23/2022 11:48 AM TRANSITION SOCIAL WORKER Images from the original note were not included. SITION SOCIAL WORKER * Telephone Encounter - Thea Hussein - 08/22/2022 4:09 PM TRANSITION SOCIAL WORKER Images from the original note were not included. CMM Valenzuela: [id number] sent to plan requesting PA for Colestipol HCl 1gm tablets qty 120 for 30 day supply (2 tablets twice daily). Office note attached for review. SITION SOCIAL WORKER documented in this encounter Plan of Treatment Not on file documented as of this encounter Visit Diagnoses Not on filedocumented in this encounter Care Teams Fabric Worker Leader Relationship Specialty Start Date End Date Jayla Phoenix MD [address] [place] [address] PCP - General 08/07/17 documented as of this encounter
--- OUTSIDE RECORDS SUMMARY | 2024-08-23 08:03 | XMS_ITS | Encounter Summary ---
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 Gender Identity Male 02/04/2019 10:52 AM CDT Sexual Orientation Straight 02/04/2019 10 :52 AM CDT documented as of this encounter Plan of Treatment Not on file documented as of this encounter Procedures Procedure Name Priority Date/Time Associated Diagnosis Comments SCAN - LABS 08/05/2021 documented in this encounter Results * SCAN - LABS (08/05/2021) us Provider Scanning Final Result documented in this encounter Visit Diagnoses Not on filedocumented in this encounter Care Teams Case Specialist Relationship Specialty Start Date End Date Jayla Phoenix MD [address] [place] [address] PCP - General 08/07/17 documented as of this encounter
--- OUTSIDE RECORDS SUMMARY | 2024-08-23 08:03 | XMS_ITS | Encounter Summary ---
Author Organization [facility] Address [address] [place] [address] Phone Care Team Providers Care Oil Boiler Name Role Phone Jayla Phoenix MD Primary Care Provider [phone] Encounter Details Date Type Department Care Team (Late st Contact Info) Description 06/23/2021 Orders Only [facility] Surgery [address] [facility] Medical [address] [place] [address] Hipolito Reyes MD [address] [place] [address] Social History Tobacco Use Types Packs/Day Years [...] on file 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
--- OUTSIDE RECORDS SUMMARY | 2024-08-23 08:03 | XMS_ITS | Encounter Summary ---
Author Organization [facility] Address [address] [place] [address] Phone Care Team Providers Care Blooming Mill Supervisor Name Role Phone Jayla Phoenix MD Primary Care Provider Encounter Details Date Type Department Care Team (Late st Contact Info) Description 09/14/2022 Orders Only [facility] Gastroenterology [address] [facility] Advanced Medicine 12th [place] [address] [place] [address] Corbin Duque MD [address] [place] [address] Crohn's disease of both small [...] on file 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
--- OUTSIDE RECORDS SUMMARY | 2024-08-23 08:03 | XMS_ITS | Encounter Summary ---
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) Procedures MRI Enterography (abdomen) W WO Contrast Corbin Duque MD [address] [place] [address] Phone: tel: fax: [address] [phone] Referral ID Status Reason Start Date Expiration Date Visits Re quested Visits Authorized [id number] Closed 10/11/2021 11/10/2022 1 1 ECT MANAGEMENT ADVISOR Reason for Visit * Consultation (Routine) - Closed Specialty Diagnoses / Procedures Referred By Contjaycee t Referred To Contact Gastroenterology Diagnoses 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) Jayla Phoenix MD [address] [place] [address] Phone: tel: fax: [facility] (All Locations) Referral ID Status Reason Start Date Expiration Date V isits Requested Visits Authorized [id number] Closed Specialty Services Required 10/04/2021 08/18/2023 12 12 Encounter Details Date Type Department Care Team (Late st Contact Info) Description 10/11/2021 11:00 AM PROJECT MANAGEMENT ADVISOR Office Visit [facility] [address] [facility] Building [address] [place] [address] Corbin Duque MD [address] [place] [address] High risk medications (not anticoagulants) long-term use (Primary Dx); 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); Crohn's disease of both small and large [...] on file Legal Sex Male 7:18 PM PROJECT MANAGEMENT ADVISOR Gender Identity Male 02/04/2019 10:52 AM CDT Sexual Orientation Straight 02/04/2019 10 :52 AM CDT documented as of this encounter Last Filed Vital Signs Vital Sign Reading Time Taken Comments Blood Pressure 124/86 10/11/2021 11:22 AM PROJECT MANAGEMENT ADVISOR Pulse 93 10/11/2021 11:22 AM PROJECT MANAGEMENT ADVISOR Temperature 36.8 ??C (98.2 ??F) 10/11/2021 11:[address] Respiratory Rate - - Oxygen Saturation - - Inhaled Oxygen Concentration - - Weight 98.7 kg (217 lb 9.6 oz) 10/11/2021 11:22 AM PROJECT MANAGEMENT ADVISOR Height 188 cm (6' 2 ) 10/11/2021 11:22 AM PROJECT MANAGEMENT ADVISOR Body Mass Index 27.94 10/11/2021 11:22 AM PROJECT MANAGEMENT ADVISOR documented in this encounter Patient Instructions * Patient Instructions* Michelle Hazel RN - 10/11/2021 11:00 AM PROJECT MANAGEMENT ADVISOR Labs and drug level with 11/12/21 injection in [place] Refills for Cholestyramine sent in to [facility] MR Enterography 12/21/[address] 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 Take 1 Scoop by mouth 2 (two) times a day 210 g 8 10/11/2021 03/14/2022 documented in this encounter Progress Notes * Stefany Zuniga NP - 10/11/2021 11:00 AM CST Subjective NAME: Kristian Vasques : 1970 DATE: 10/11/21 Referred here Primary Care Physician: Jayla Phoenix MD Consult requested by: Jayla Phoenix MD Chief Complaint: Crohn's disease HPI Kristian Vasques, is a 51 y.o.male who presents for follow up penetrating ileocolonic Crohn's disease he is on stelara which was started 05/06/20 Prior to this he had been on no therapy since his IC resection in 2008 secondary to small bowel obstruction. Prior to his resection he had been on pentasa. He was diagnosed in 2000. MRE in February 2020 showed active disease and fistula at the anastamosis. Colonoscopy in March 2020 showed active inflammation as well.??Therefore started on stelara. On stelara every 8 weeks. He had a repeat MRE in August 2020 which showed enterocolic fistula at the levelof the ileocolic anastomosis which appeared fibrosed in the mid segment and decreased in thickness compared to the prior exam. ??No new site of inflammation identified in the small or large bowel loops were noted and no evidence of bowel obstruction. Stelara level in September 2020 was 7.7, We last saw him in clinic in 12/2020. Since then we repeated a colonoscopy 01/2021 noted to have a few erosions at the neoterminal ileum. ?? Remains on stelara every 8 weeks with next injection due November 12. He is on vitamin D and B12 supplementation. On questran BID. Reports currently he feels better than he has in years. He is having one stool daily. Denies any hematochezia. Reports some occasional urgency if he forgets to take his q uestran. Denies any abdominal pain. Reports in general his stools are formed. Some occasional nausea. Some occasional mild joint pain in his ankles. He denies any anticipatory symptoms. ?? Patient Active Problem List Diagnosis Date Noted ??? Crohn's disease of small and large intestines with complication (CMS/HCC) (HCC) 12/21/2020 Added automatically from request for surgery [id number] ??? Hyperoxaluria 12/21/2020 ??? Urinary frequency 09/13/2020 ??? High risk medications (not anticoagulants) long-term use 05/18/2020 ??? Bilateral nephrolithiasis 04/05/2020 Added automatically from request for surgery [id number] ??? 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 Crohn's disease of both small and large intestine with other complication (HCC) 01/22/2020 Year of diagnosis: 2000. Year symptoms began: 2000. Phenotype: Penetrating (B3) without perianal disease. Distribution: ileocolonic (L3) without upper GI disease (L4). Extraintestinal manifestations: arthralgias. Complications: hx SBO Kidney stones, hydronephrosis Prior treatments: pentasa. Current treatment: Stelara (started 04/2020) every 8 weeks, level 7.7 09/2020 FC 22 02/2020 Prior surgeries: IC resection [...] - Normal colonic mucosa ? Imaging: MRE 08/2020 1. Enterocolic fistula at the [...] 02/02/2019 Added automatically from request for surgery [id number] ??? Cervical radiculopathy 02/02/2019 Added automatically from request for surgery [id number] ??? Fusion of spine of cervical region 02/02/2019 Added automatically from request for surgery [id number] ??? Cervical radiculopathy at C7 01/23/2019 ??? [...] ??? Anesthesia problems Neg Hx Social History Socioeconomic History ??? Marital status: Spouse name: Not on file ??? Number of children: Not on file ??? Years of education: Not on file ??? Highest education level: Not on file Occupational History ??? Not on file Tobacco Use ??? Smoking status: Former Smoker Packs/day: 1.50 Types: Cigarettes Start date: 1993 Quit date: 2003 Years since quittin.1 ??? Smokeless tobacco: Never Used Substance and [...] on file Housing Stability: Not on file Allergies Allergen Reactions ??? Iodinated Contrast Media Rash Current Outpatient Medications Medication Sig Dispense Refill ??? cholestyramine-aspartame 4 gram powder Take 1 Scoop by mouth 2 (two) times a day 210 g 8 ??? cyanocobalamin, vitamin B-12, 5,000 mcg tablet, sublingual Place 1 tablet under the tongue editor department before breakfast ??? diphenhydrAMINE (BENADRYL) 25 mg capsule Take 25 mg by mouth nightly as needed for itching ??? losartan-hydrochlorothiazide (HYZAAR) 100-25 mg per tablet Take 1 tablet by mouth nightly ??? melatonin 5 mg tablet Take 5 mg by mouth nightly as needed ??? multivitamin capsule Take 1 capsule by mouth editor department before breakfast ??? tamsulosin (FLOMAX) 0.4 mg extended release capsule Take 1 capsule (0.4 mg total) by mouth nightly 30 capsule 11 ??? traZODone (DESYREL) 50 mg tablet ??? [...] Psychiatric/Behavioral: Negative. Breast: Negative. Vital Signs: BP 124/86 Pulse 93 Temp 36.8 ??C (98.2 ??F) Ht 188 cm (6' 2 ) Wt 98.7 kg (217 lb 9.6 oz) BMI 27.94 kg/m?? Physical Exam: GENERAL: Well-appearing, in no [...] visit. Latest known visit with results is: Lab on 12/21/2020 Component Date Value Ref Range Status ??? WBC 12/21/2020 5.8 3.8 - 9.9 K/cumm Final ??? Hgb 12/21/2020 14.1 13.0 - 17.5 g/dL Final ??? Hct 12/21/2020 41.5 38.9 - 50.3 % Final ??? Plt 12/21/2020 286 150 - 400 K/cumm Final ??? MPV 12/21/2020 9.8 9.1 - 12.3 fL Final ??? RBC 12/21/2020 4.75 4.30 - 5.80 M/cumm Final ??? MCV 12/21/2020 87.4 81.3 - 96.4 fL Final ??? MCH 12/21/2020 29.7 27.1 - 33.3 pg Final ??? MCHC 12/21/2020 34.0 32.3 - 35.7 g/dL Final ??? RDW CV 12/21/2020 13.0 11.1 - 14.9 % Final ??? RDW SD 12/21/2020 41.9 35.7 - 48.1 fL Final ??? NRBC abs 12/21/2020 0.00 0.00 - 0.01 K/cumm Final ??? Sodium 12/21/2020 139 135 - 145 mmol/L Final ??? Potassium, pl 12/21/2020 4.2 3.3 - 4.9 mmol/L Final ??? Chloride 12/21/2020 103 97 - 110 mmol/L Final ??? CO2 12/21/2020 26 22 - 32 mmol/L Final ??? Anion gap 12/21/2020 10 2 - 15 mmol/L Final ??? BUN 12/21/2020 20 8 - 25 mg/dL Final ??? Creatinine 12/21/2020 1.13 0.80 - 1.30 mg/dL Final ??? Glucose 12/21/2020 98 70 - 199 mg/dL Final ??? Calcium 12/21/2020 9.5 8.5 - 10.3 mg/dL Final ??? Bilirubin, total 12/21/2020 0.2 0.1 - 1.2 mg/dL Final ??? Protein, pl 12/21/2020 6.5 6.5 - 8.5 g/dL Final ??? Albumin 12/21/2020 3.8 3.5 - 5.0 g/dL Final ??? Alk phos 12/21/2020 78 40 - 130 Units/L Final ??? ALT 12/21/2020 30 7 - 55 Units/L Final ??? AST 12/21/2020 23 10 - 50 Units/L Final ? ? CRP 12/21/2020 <3.0 <=10.0 mg/L Final ??? Vitamin D, 25-hydroxy 12/21/2020 27 (A) 30 - 80 ng/mL Final ??? T-SPOT.TB 12/21/2020 Negative SeeBelow Final ??? T-SPOT.TB Panel A Spot Count 12/21/2020 0 Final ??? T-SPOT.TB Panel B Spot Count 12/21/2020 1 Final ??? T-SPOT.TB Negative Control 12/21/2020 Passed Final ??? T-SPOT.TB Positive Control 12/21/2020 Passed Final ??? Neutrophil abs 12/21/2020 3.6 1.7 - 6.5 K/cumm Final ??? Imm gran abs 12/21/2020 0.0 0.0 - 0.1 K/cumm Final ??? Lymphocyte abs 12/21/2020 1.6 0.8 - 3.3 K/cumm Final ??? Monocyte abs 12/21/2020 0.4 0.2 - 0.8 K/cumm Final ??? Eosinophil abs 12/21/2020 0.1 0.0 - 0.5 K/cumm Final ??? Basophil abs 12/21/2020 0.0 0.0 - 0.1 K/cumm Final ??? Neutrophil pct 12/21/2020 61.6 % Final ??? Imm gran pct 12/21/2020 0.2 % Final ??? Lymphocyte pct 12/21/2020 27.8 % Final ??? Monocyte pct 12/21/2020 7.6 % Final ??? Eosinophil pct 12/21/2020 2.1 % Final ??? Basophil pct 12/21/2020 0.7 % Final ??? eGFR 12/21/2020 76 mL/min/1.73 m2 Final Imaging Review none ASSESSMENT and PLAN: Crohn's disease Penetrating IC crohn's on Stelara. Currently feeling well. Last colonoscopy 01/2021 few erosions at the neoterminal ileum -continue stelara -continue safety labs -will check trough level prior to next dose -continue questran -continue vitamin D and B12 supplementation -will repeat CTE -follow up in 6 months ?? High risk medications:??As with all patients taking immunosuppressive biologic therapies or immunomodulators, we provide a balanced discussion on benefits and risks associated with these medications.Regarding potential risks, we employ a strategy of active monitoring for medication related toxicities. Toxicities and risks discussed in monitoring include, but are not limited to the following: infusion reactions including anaphylaxis; bacterial, viral and fungal infections; pancreatitis; heart failure; neurologic reactions; hematologic and solid tumors malignancy including an increased risk oflymphoma and skin cancers; bone marrow toxicity including anemia, lymphopenia and immune suppression; hepatotoxicity and potential renal toxicity. Patients are actively assessed through routine laboratories (Q4 month or more frequently) which I personally review and are encouraged to contact us with any questions regarding new symptom development. No problem-specific Assessment & Plan notes found for this encounter. No follow-ups on file. Cosigned by Corbin Duque MD at 10/11/2021 11:33 PM PROJECT MANAGEMENT ADVISOR ECT MANAGEMENT ADVISOR ECT MANAGEMENT ADVISOR Associated attestation - Corbin Duque MD - 10/11/2021 11:33 PM PROJECT MANAGEMENT ADVISOR I have seen and examined the patient in conjunction with the Nurse Practitioner. Please refer to the LIGHTING EQUIPMENT OPERATOR note for PMH and ROS. History: Patient with penetrating Crohn's disease. On stelara q 8 and doing well. One bm/day Physical Exam: GENERAL: Well-appearing, in no acute [...] insight, memory, affect, and orientation Lab/Radiology/Diagnostics Review: None Assessment/Plan At this point continue same. Will check drug level to be certain we can maintain adequate levels and the clinical effect. Corbin Duque MD, FACP, FACG, AGAJUSTEN Guy director human services [facility] [address] [place] [address] Academic office [phone] documented in this encounter Plan of Treatment Scheduled Orders Name Type Priority Associated Diagnoses Orde r Schedule CBC with auto differential Lab Routine 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) Crohn's disease of both small and large intestine with complication (CMS/HCC) High risk medications (not anticoagulants) long-term use Expected: 10/11/2021, Expires: 10/11/2022 Comprehensive metabolic panel Lab Routine 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) Crohn's disease of both small and large intestine with complication (CMS/HCC) High risk medications (not anticoagulants) long-term use Expected: 10/11/2021, Expires: 10/11/2022 CRP (acute phase) Lab Routine 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) Crohn's disease of both small and large intestine with complication (CMS/HCC) High risk medications (not anticoagulants) long-term use Expected: 10/11/2021, Expires: 10/11/2022 Ustekinumab concentration levels and antibodies - Miscellaneous Test Lab Routine 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) Crohn's disease of both small and large intestine with complication (CMS/HCC) High risk medications (not anticoagulants) long-term use Expected: 10/18/2021, Expires: 10/11/2022 documented as of this encounter Results * MRI Enterography (abdomen) W WO Contrast (12/21/2021 11:33 AM CDT) Anatomical Region Laterality Modality Body N/A Magnetic Resonan ce 12/21/2021 12:1 7 PM CDT Impressions 12/21/2021 2:45 PM CDT 1. ??Fibrotic tissue in the region of the previously described enterocolic fistula at the level of the ileocolic anastomosis, without fluid communication. 2. ??No active inflammation. No new site of disease. 3. ??Left lower pole caliceal dilation is stable from 09/17/2020, likely related to stones or stenosis. Dictated by: Dana Urbina MD The radiology attending physician has personally reviewed this study, and had reviewed and/or edited this written report and agrees with it. Electronically signed by: Michele Amos M.D. Narrative 12/21/2021 2:45 PM CDT EXAMINATION: MAGNETIC RESONANCE IMAGING OF THE ABDOMEN WITH AND WITHOUT CONTRAST HISTORY: History of Crohn's disease, prior ileocecal resection TECHNIQUE: Magnetic resonance imaging of the abdomen was performed prior to and following the uneventful administration of intravenous Gadolinium contrast. Oral Volumen and 1 mg of intravenous glucagon was administered prior to the examination. Protocol: MR Enterography Contrast: gadoterate 19 mL COMPARISON: Abdominal MR 09/17/2020, 02/29/2020 FINDINGS: Bowel: Changes of prior ileocecal resection with anastomosis. In the region of the previously described enterocolic fistula between the neoterminal ileum and colon at the level of the anastomosis, there is fibrotic tissue ??without hyperenhancement (best demonstrated on axial T2 haste series 30 images 45-49). No fluid communication. No site of active inflammation. ??No fluid collection or stricture. Liver/Bile Ducts: Ducts are nondilated. ??No significant iron or fat deposition. ??No suspicious focal lesion. Gallbladder: Normal. Pancreas: Normal. Spleen: Normal. Adrenals: Normal. Kidneys: Caliceal dilation in the lower pole of the left kidney is stable from 09/17/2020 associated with adjacent cortical thinning, increased since CT performed 04/13/2020. Bilateral nephrolithiasis. Bladder: Normal. Reproductive organs: Normal. Other Findings: No free fluid. ??No lymphadenopathy. Procedure Note Michele Amos MD - 12/21/2021 EXAMINATION: MAGNETIC RESONANCE IMAGING OF THE ABDOMEN WITH AND WITHOUT CONTRAST HISTORY: History of Crohn's disease, prior ileocecal resection TECHNIQUE: Magnetic resonance imaging of the abdomen was performed prior to and following the uneventful administration of intravenous Gadolinium contrast. Oral Volumen and 1 mg of intravenous glucagon was administered prior to the examination. Protocol: MR Enterography Contrast: gadoterate 19 mL COMPARISON: Abdominal MR 09/17/2020, 02/29/2020 FINDINGS: Bowel: Changes of prior ileocecal resection with anastomosis. In the region of the previously described enterocolic fistula between the neoterminal ileum and colon at the level of the anastomosis, there is fibrotic tissue without hyperenhancement (best demonstrated on axial T2 haste series 30 images 45-49). No fluid communication. No site of active inflammation. No fluid collection or stricture. Liver/Bile Ducts: Ducts are nondilated. No significant iron or fat deposition. No suspicious focal lesion. Gallbladder: Normal. Pancreas: Normal. Spleen: Normal. Adrenals: Normal. Kidneys: Caliceal dilation in the lower pole of the left kidney is stable from 09/17/2020 associated with adjacent cortical thinning, increased since CT performed 04/13/2020. Bilateral nephrolithiasis. Bladder: Normal. Reproductive organs: Normal. Other Findings: No free fluid. No lymphadenopathy. IMPRESSION: 1. Fibrotic tissue in the region of the previously described enterocolic fistula at the level of the ileocolic anastomosis, without fluid communication. 2. No active inflammation. No new site of disease. 3. Left lower pole caliceal dilation is stable from 09/17/2020, likely related to stones or stenosis. Dictated by: Dana Urbina MD The radiology attending physician has personally reviewed this study, and had reviewed and/or edited this written report and agrees with it. Electronically signed by: Michele Amos M.D. 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 Medication Sig Dispense Quantity Refills Last Filled Start D ate End Date losartan (COZAAR) 100 mg tablet 08/28/2021 10/11/2021 added in this encounter Orders Outpatient Referral Count Last Ordered Date Fir st Ordered Date AMB REFERRAL TO GASTROENTEROLOGY 1 10/11/19 22 documented in this encounter Care Teams Career Development Manager Relationship Specialty Start Date End Date Jayla Phoenix MD [address] [place] [address] PCP - General 08/07/17 documented as of this encounter
--- OUTSIDE RECORDS SUMMARY | 2024-08-23 08:03 | XMS_ITS | Encounter Summary ---
Author Organization [facility] Address [address] [place] [address] Phone Care Team Providers Care Steel Fabricating Supervisor Name Role Phone Jayla Phoenix MD Primary Care Provider [phone] Encounter Details Date Type Department Care Team (Late st Contact Info) Description 09/26/2021 Orders Only 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 Gender Identity Male 02/04/2019 10:52 AM CDT Sexual Orientation Straight 02/04/2019 10 :52 AM CDT documented as of this encounter Ordered Prescriptions Prescription Sig Dispense Quantity Refills Last Filled Start Date End Date ustekinumab (Stelara) injection Inject 1 mL (90 mg total) under the skin every 8 (eight) weeks 1 mL 1 09/26/2021 11/28/2021 documented in this encounter Plan of Treatment Not on file documented as of this encounter Visit Diagnoses Not on filedocumented in this encounter Discontinued Medications Medication Sig Discontinue Reason Start Date End Da te ustekinumab (Stelara) injection Inject 1 mL (90 mg total) under the skin every 8 (eight) weeks Reorder 08/07/2021 09/26/2021 documented as of this encounter Care Teams Steel Fabricating Supervisor Relationship Specialty Start Date End Date Jayla Phoenix MD [address] [place] [address] PCP - General 08/07/17 documented as of this encounter
--- OUTSIDE RECORDS SUMMARY | 2024-08-23 08:03 | XMS_ITS | Encounter Summary ---
Author Organization [facility] Address [address] [place] [address] Phone Care Team Providers Care Accessibility Lift Technician Name Role Phone Jayla Phoenix MD Primary Care Provider [phone] Encounter Details Date Type Department Care Team (Late st Contact Info) Description 01/02/2022 Telephone [facility]rology [address] 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 * Telephone Encounter - Sasha Larson - 01/02/2022 4:15 PM CDT ----- Message from LEONID Sanchez sent at 01/01/2022 10:35 AM CDT ----- ----- Message ----- From: Hipolito Reyes MD Sent: 12/27/2021 2:52 PM CDT To: LEONID Sanchez Can you please have him follow up in 1 year with renal ultrasound, and 1x litholink in 10 months? * Telephone Encounter - Sasha Larson - 01/02/2022 12:51 PM CDT ----- Message from LEONID Sanchez sent at 01/01/2022 10:35 AM CDT ----- ----- Message ----- From: Hipolito Reyes MD Sent: 12/27/2021 2:52 PM CDT To: LEONID Sanchez Can you please have him follow up in 1 year with renal ultrasound, and 1x litholink in 10 months? documented in this encounter Plan of Treatment Not on file documented as of this encounter Visit Diagnoses Not on filedocumented in this encounter Care Teams Accessibility Lift Technician Relationship Specialty Start Date End Date Jayla Phoenix MD [address] [place] [address] PCP - General 08/07/17 documented as of this encounter
--- OUTSIDE RECORDS SUMMARY | 2024-08-23 08:03 | XMS_ITS | Encounter Summary ---
Author Organization [facility] Address [address] [place] [address] Phone Care Team Providers Care Software Engineering Analyst Name Role Phone Jayla Phoenix MD Primary Care Provider [phone] Encounter Details Date Type Department Care Team (Late st Contact Info) Description 04/09/2022 Orders Only [facility] Gastroenterology [address] [facility] Advanced Medicine 12th [place] [address] Corbin Duque MD [address] [place] [address] Social History Tobacco Use Types Packs/Day Years [...] on file 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 Gender Identity Male 02/04/2019 10:52 AM CDT Sexual Orientation Straight 02/04/2019 10 :52 AM CDT documented as of this encounter Ordered Prescriptions Prescription Sig Dispense Quantity Refills Last Filled Start Date End Date colestipoL (COLESTID) 1 gram tablet Take 2 tablets (2 g total) by mouth 2 (two) times a day 360 tablet 1 04/09/2022 3 documented in this encounter Plan of Treatment Not on file documented as of this encounter Visit Diagnoses Not on filedocumented in this encounter Discontinued Medications Medication Sig Discontinue Reason Start Date End Da te colestipoL (COLESTID) 1 gram tablet Take 1 tablet (1 g total) by mouth 2 (two) times a day Reorder 03/14/2022 04/09/2022 documented as of this encounter Care Teams Software Engineering Analyst Relationship Specialty Start Date End Date Jayla Phoenix MD [address] [place] [address] PCP - General 08/07/17 documented as of this encounter"
--- OUTSIDE RECORDS SUMMARY | 2024-08-23 08:03 | XMS_ITS | Encounter Summary ---
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) Jayla Phoenix MD [address] [place] [address] Phone: tel: fax: [facility] (All Locations) Referral ID Status Reason Start Date Expiration Date V isits Requested Visits Authorized [id number] Closed Specialty Services Required 10/04/2021 08/18/2023 12 12 Encounter Details Date Type Department Care Team (Late st Contact Info) Description 09/19/2022 9:20 AM CUSTOM MARINE CANVAS FABRICATOR Office Visit [facility] Gastroenterology [address] [place] [address] Medical Office Building [address] [place] [address] Corbin Duque MD [address] [place] [address] Crohn's disease of both small [...] on file Legal Sex Male 7:18 PM CUSTOM MARINE CANVAS FABRICATOR Gender Identity Male 02/04/2019 10:52 AM CDT Sexual Orientation Straight 02/04/2019 10 :52 AM CDT documented as of this encounter Last Filed Vital Signs Vital Sign Reading Time Taken Comments Blood Pressure 117/82 09/19/2022 9:30 AM CUSTOM MARINE CANVAS FABRICATOR Pulse 89 09/19/2022 9:30 AM CUSTOM MARINE CANVAS FABRICATOR Temperature - - Respiratory Rate - - Oxygen Saturation - - Inhaled Oxygen Concentration - - Weight 102 kg (224 lb 12.8 oz) 09/19/2022 9:30 A M CUSTOM MARINE CANVAS FABRICATOR Height 188 cm (6' 2 ) 09/19/2022 9:30 AM CUSTOM MARINE CANVAS FABRICATOR Body Mass Index 28.86 09/19/2022 9:30 AM CUSTOM MARINE CANVAS FABRICATOR documented in this encounter Patient Instructions * Patient Instructions* Natalie Dawson - 09/19/2022 9:20 AM CUSTOM MARINE CANVAS FABRICATOR Return office visit is needed in 6 months OM MARINE CANVAS FABRICATOR documented in this encounter Progress Notes * Corbin Duque MD - 09/19/2022 9:20 AM CST Images from the original note were not included. [facility] Corbin Duque MD, FACP, FACG, AGAJUSTEN Guy manager investment Subjective NAME: Kristian Vasques : 1970 DATE: 09/19/2022 Referred here Primary Care Physician: Jayla Phoenix MD Consult requested by: Referral, Self Chief Complaint: CD HPI Kristian Vasques, is a 52 y.o.male who presents for same. Doing well on stelara at current. Arthralgias better. Some urgency but only one bm/day. No bleeding. No EIM's. 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) 03/03/2020 Added automatically from request for surgery [id number] Crohn's disease of both small and large [...] 02/02/2019 Added automatically from request for surgery [id number] Cervical radiculopathy 02/02/2019 Added automatically from request for surgery [id number] Fusion of spine of cervical region 02/02/2019 Added automatically from request for surgery [id number] Cervical radiculopathy at C7 01/23/2019 Cervical pain (neck) 09/03/2017 Past Medical History: Diagnosis Date Colon polyp Crohn's disease (CMS/HCC) (HCC) 2000 DDD (degenerative disc disease), cervical Gastric reflux HTN (hypertension) Kidney stone Past Surgical History: Procedure Laterality Date ANTERIOR CERVICAL DISCECTOMY W/ FUSION 2018 hardware removal 02/2019 APPENDECTOMY BOWEL RESECTION 2009 COLONOSCOPY KIDNEY STONE SURGERY NEPHROSTOGRAM THROUGH EXISTING CATHETER LEFT Left 04/19/2020 Family History Problem Relation Age of Onset Heart attack Father Anesthesia problems Neg Hx Social History Tobacco Use Smoking status: Former Packs/day: 1.50 Types: Cigarettes Start date: 1993 Quit date: 2002 Years since quittin.0 Smokeless tobacco: Never Substance and Sexual Activity Drug use: No Sexual activity: None Alcohol Use: Unknown Frequency of Alcohol Consumption: Monthly or less [...] sublingual Place 1 tablet under the tongue blending line attendant before breakfast diphenhydrAMINE (BENADRYL) 25 mg capsule Take 25 mg by mouth nightly as needed for itching losartan-hydrochlorothiazide (HYZAAR) 100-25 mg per tablet Take 1 tablet by mouth nightly melatonin 5 mg tablet Take 5 mg by mouth nightly as needed multivitamin capsule Take 1 capsule by mouth blending line attendant before breakfast Stelara injection MAINTENANCE: INJECT 1 SYRINGE SUBCUTANEOUSLY EVERY 8 WEEKS. REFRIGERATE. DO NOT FREEZE. 1 mL 1 tamsulosin (FLOMAX) 0.4 mg extended release capsule Take 2 capsules (0.8 mg total) by mouth [id number] capsule 3 traZODone (DESYREL) 100 mg tablet TAKE 2 TABLETS (100 MG) BY ORAL ROUTE AT BEDTIME zolpidem (AMBIEN) 5 mg tablet (Patient not [...] Psychiatric/Behavioral: Negative. Breast: Negative. Vital Signs: BP 117/82 (BP Location: Right arm, Patient Position: Sitting) Pulse 89 Ht 188 cm (6' 2 ) Wt 102 kg (224 lb 12.8 oz) BMI 28.86 kg/m?? Physical Exam: GENERAL: Well-appearing, in no [...] 1.3 mg/dL Final POC Device Number 12/21/2021 [id number] Final POC Performer 12/21/2021 [id number] Final Imaging Review None ASSESSMENT and PLAN: Crohn's disease of both small and large intestine with other complication (HCC) Long standing CD doing well with one bm/day. No bleeding or EIM's. On stelara and colestipol. Will cont same and f/up in 6 mo. Will need a colon this year discuss in fall. Return in about 6 months (around 03/19/2023). Corbin Duque MD, FACP, FACG, AGAMalena, JUSTEN manager investment [facility] Division [facility] [address] [place] [address] Academic office [phone] OM MARINE CANVAS FABRICATOR documented in this encounter Miscellaneous Notes * Assessment & Plan Note - Corbin Duque MD - 09/19/2022 9:38 AM CUSTOM MARINE CANVAS FABRICATOR Associated Problem(s): Crohn's disease of both small and large intestine with other complication (HCC) Long standing CD doing well with one bm/day. No bleeding or EIM's. On stelara and colestipol. Will cont same and f/up in 6 mo. Will need a colon this year discuss in fall. 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 traZODone (DESYREL) 100 mg tablet TAKE 2 TABLETS (100 MG) BY ORAL ROUTE AT BEDTIME 08/20/2022 added in this encounter Care Teams Hospice/Home Health Aide Relationship Specialty Start Date End Date Jayla Phoenix MD [address] [place] [address] PCP - General 08/07/17 documented as of this encounter
--- OUTSIDE RECORDS SUMMARY | 2024-08-23 08:03 | XMS_ITS | Encounter Summary ---
Author Organization [facility] Address [address] [place] [address] Phone Care Team Providers Care Field Manager Name Role Phone Jayla Phoenix MD Primary Care Provider [phone] Reason for Visit * Reason Onset Date Comments Prior Auth 08/29/2021 Encounter Details Date Type Department Care Team (Late st Contact Info) Description 08/29/[address] 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 Gender Identity Male 02/04/2019 10:52 AM CDT Sexual Orientation Straight 02/04/2019 10 :52 AM CDT documented as of this encounter Miscellaneous Notes * Telephone Encounter - Thea Rodriguez - 08/29/2021 1:50 PM CST Stelara 90MG/ML syringes Approved until 09/26/2022 (Valenzuela: [id number]) SPERSON CORSETS SPERSON CORSETS SPERSON CORSETS * Telephone Encounter - Michelle Hazel RN - 08/29/2021 11:26 AM CST stelara every 8 weeks new insurance SPERSON CORSETS documented in this encounter Plan of Treatment Not on file documented as of this encounter Visit Diagnoses Not on filedocumented in this encounter Care Teams Field Manager Relationship Specialty Start Date End Date Jayla Phoenix MD [address] [place] [address] PCP - General 08/07/17 documented as of this encounter
--- OUTSIDE RECORDS SUMMARY | 2024-08-23 08:03 | XMS_ITS | Encounter Summary ---
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) Procedures MRI Enterography (abdomen) W WO Contrast Corbin Duque MD [address] [place] [address] Phone: tel: fax: [place] [address] [place] [address] Referral ID Status Reason Start Date Expiration Date Visits Re quested Visits Authorized [id number] Closed 10/11/2021 11/10/2022 1 1 Reason for Visit * MRI/CAT/PET Scan (Routine) - Closed Specialty Diagnoses / Procedures Referred By Elina senior Referred To Contact Radiology Diagnoses 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) Procedures MRI Enterography (abdomen) W WO Contrast Corbin Duque MD [address] [place] [address] Phone: tel: fax: [place] [phone] [place] [phone] Referral ID Status Reason Start Date Expiration Date Visits Re quested Visits Authorized [id number] Closed 10/11/2021 11/10/2022 1 1 Encounter Details Date Type Department Care Team (Latest Contact Info) Description 12/21/2021 9:05 AM CDT - 12/21/2021 11:59 PM CDT Hospital Encounter [facility] [id number] [place] [id number] Corbin Duque MD [address] [place] [address] Crohn's disease of both small and large [...] on file 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 Gender Identity Male 02/04/2019 10:52 AM CDT Sexual Orientation Straight 02/04/2019 10 :52 AM CDT documented as of this encounter Medications at Time of Discharge cyanocobalamin, vitamin B-12, 5,000 mcg tablet, sublingualIndicatio ns:Prevention of Vitamin B12 Deficiency [address] 1 tablet under the tongue snowblower mechanic before breakfast losartan-hydrochlor othiazide (HYZAAR) 100-25 mg per tabletIndications:h ypertension Take 1 tablet by mouth nightly 02/23/2019 multivitamin capsuleIndications: Vitamin Deficiency Prevention Take 1 capsule by mouth snowblower mechanic before breakfast cholestyramine-aspa rtame 4 gram powderIndications:c [...] Procedure Name Priority Date/Time Associated Diagnosis Comments MRI ABDOMENT ENTEROGRAPHY W WO CONTRAST Schedule Routine, Read Routine (OP Routine) 12/21/2021 11:33 AM CDT 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 Corbin Duque MD IMG MRI PROCEDURES Final Re sult * POC ISTAT (12/21/2021 10:36 AM CDT) Creatinine, POC, bld 1.1 0.6 - 1.3 mg/dL RYAN SEN Comment: Interpretive data Creatinine <1.5 mg/dL and stable receive IV contrast. Creatinine 1.5-1.9 mg/dL and stable use Visipaque IV contrast. Current interpretive data last reviewed 2015. POC Device Number [id number] RYAN BILLY POC Performer [id number] RYAN SEN Blood 12/21/2021 10:3 6 AM CDT 12/21/2021 10:36 AM CDT Corbin Duque MD LAB BLOOD ORDERABLES Final Result RYAN [facility] [id number] [facility]. 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 98.7 kg), intravenous, Once in imaging, contrast, Starting on Millicent 12/21/21 at 1023, For 1 dose, Imaging Protocol Orders Contrast Given 12/21/2021 10:39 AM CDT 19 mL glucagon injection 1 mg 1 mg, intravenous, Administer over 1 Minutes, Once in imaging, low blood sugar, Starting on Millicent 12/21/21 at 1023, For 1 dose, Imaging Protocol Orders, Reconstitute 1 mg vial with 1 mL SWFI. Use immediately following reconstitution. Given 12/21/2021 10:39 AM CDT 1 mg sodium chloride 0.9% flush 125 mL 125 mL, intravenous, Once in imaging, line care, Starting on Millicent 12/21/21 at 1024, For 1 dose Given 12/21/2021 10:39 AM CDT 125 mL documented in this encounter Care Teams Project Internship Relationship Specialty Start Date End Date Jayla Phoenix MD [address] [place] [address] PCP - General 08/07/17 documented as of this encounter
--- OUTSIDE RECORDS SUMMARY | 2024-08-23 08:03 | XMS_ITS | Encounter Summary ---
Author Organization [facility] Address [address] [place] [address] Phone Care Team Providers Care Senior Construction Manager Name Role Phone Jayla Phoenix MD Primary Care Provider [phone] Encounter Details Date Type Department Care Team (Late st Contact Info) Description 11/28/2021 Orders Only [facility] Gastroenterology [address] [facility] Advanced Medicine 12th [place] [address] [place] [address] Corbin Duque MD [address] [place] [address] Social History Tobacco Use Types Packs/Day Years [...] file 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 Gender Identity Male 02/04/2019 10:52 AM CDT Sexual Orientation Straight 02/04/2019 10 :52 AM CDT documented as of this encounter Ordered Prescriptions Prescription Sig Dispense Quantity Refills Last Filled Start Date End Date ustekinumab (Stelara) injection Inject 1 mL (90 mg total) under the skin every 8 (eight) weeks 1 mL 1 11/28/2021 03/28/2022 documented in this encounter Plan of Treatment Not on file documented as of this encounter Visit Diagnoses Not on filedocumented in this encounter Discontinued Medications Medication Sig Discontinue Reason Start Date End Da te ustekinumab (Stelara) injection Inject 1 mL (90 mg total) under the skin every 8 (eight) weeks Reorder 09/26/2021 11/28/2021 documented as of this encounter Care Teams Senior Construction Manager Relationship Specialty Start Date End Date Jayla Phoenix MD [address] [place], [place] [address] PCP - General 08/07/17 documented as of this encounter
--- OUTSIDE RECORDS SUMMARY | 2024-08-23 08:03 | XMS_ITS | Encounter Summary ---
Author Organization [facility] Address [address] [place] [address] Phone Care Team Providers Care Assembler 1St Shift Name Role Phone Jayla Phoenix MD Primary Care Provider [phone] Reason for Visit * Reason Onset Date Comments Lab Results 08/07/2021 Encounter Details Date Type Department Care Team (Late st Contact Info) Description 08/07/2021 Documentation [facility] Gastroenterology [address] [facility] Medicine 8th [place] [address] [place] [address] Michelle Hazel RN Lab Results [...] on file Legal Sex Male 7:18 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 Creatinine is 1.36 but pt has H/o kidneys stones. Danielle made him aware so he can adjust his fluids as needed. TUTOR documented in this encounter Plan of Treatment Not on file documented as of this encounter Visit Diagnoses Not on filedocumented in this encounter Care Teams Assembler 1St Shift Relationship Specialty Start Date End Date Jayla Phoenix MD [address] [place], [place] [address] PCP - General 08/07/17 documented as of this encounter
--- OUTSIDE RECORDS SUMMARY | 2024-08-23 08:03 | XMS_ITS | Encounter Summary ---
Author Organization [facility] Address [address] [place] [address] Phone Care Team Providers Care Line Haul Owner Operator Name Role Phone Jayla Phoenix MD Primary Care Provider [phone] Encounter Details Date Type Department Care Team (Late st Contact Info) Description 04/27/2021 Orders Only [facility] Gastroenterology [address] [facility] Advanced Medicine 8th [place] [address] [place] [address] Corbin Duque MD [address] [place] [address] Social History Tobacco Use Types Packs/Day Years [...] on file Legal Sex Male 7:18 PM DIRECTOR OF CARDIAC CATH LAB Gender Identity Male 02/04/2019 10:52 AM CDT Sexual Orientation Straight 02/04/2019 10 :52 AM CDT documented as of this encounter Ordered Prescriptions Prescription Sig Dispense Quantity Refills Last Filled Start Date End Date ustekinumab (Stelara) injection Inject 1 mL (90 mg total) under the skin every 8 (eight) weeks 1 mL 1 04/27/2021 08/07/2021 documented in this encounter Plan of Treatment Not on file documented as of this encounter Visit Diagnoses Not on filedocumented in this encounter Discontinued Medications Medication Sig Discontinue Reason Start Date End Da te Stelara injection INJECT 90 MG (1 SYRINGE) UNDER THE SKIN EVERY 8 WEEKS Reorder 06/21/2020 04/27/2021 documented as of this encounter Care Teams Line Haul Owner Operator Relationship Specialty Start Date End Date Jayla Phoenix MD [address] [place] [address] PCP - General 08/07/17 documented as of this encounter
--- OUTSIDE RECORDS SUMMARY | 2024-08-23 08:03 | XMS_ITS | Encounter Summary ---
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 Gender Identity Male 02/04/2019 10:52 AM CDT Sexual Orientation Straight 02/04/2019 10 :52 AM CDT documented as of this encounter Plan of Treatment Not on file documented as of this encounter Procedures Procedure Name Priority Date/Time Associated Diagnosis Comments SCAN - LABS 11/06/2021 documented in this encounter Results * SCAN - LABS (11/06/2021) us Provider Scanning Edited Result - Final documented in this encounter Visit Diagnoses Not on filedocumented in this encounter Care Teams Records Management Associate Relationship Specialty Start Date End Date Jayla Phoenix MD [address] [place] [address] PCP - General 08/07/17 documented as of this encounter
--- OUTSIDE RECORDS SUMMARY | 2024-08-23 08:04 | XMS_ITS | Encounter Summary ---
Author Organization [facility] Address [address] [place] [address] Phone Care Team Providers Care Hematology Oncology Consultant Name Role Phone Jayla Phoenix MD Primary Care Provider [phone] Encounter Details Date Type Department Care Team (Late st Contact Info) Description 04/18/2021 Telephone [facility] Gastroenterology [address] 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 Duque pt Stelara 90mg every 8 weeks needs PA (auto renewal) TOTH: [id number] Can you assist? documented in this encounter Plan of Treatment Not on file documented as of this encounter Visit Diagnoses Not on filedocumented in this encounter Care Teams Hematology Oncology Consultant Relationship Specialty Start Date End Date Jayla Phoenix MD [address] [place] [address] PCP - General 08/07/17 documented as of this encounter
--- OUTSIDE RECORDS SUMMARY | 2024-08-23 08:04 | XMS_ITS | Encounter Summary ---
Author Organization [facility] Healthcare Address [address] [place] [address] Care Team Providers Care [facility] Assistant Director Name Role Phone Jayla Phoenix MD Primary Care Provider Encounter Details Date Type Department Care Team (Latest Contact Info) Description 02/06/2021 7:51 AM CDT - 02/06/2021 11:18 AM CDT Hospital Encounter [facility] [address] [facility] [place] [address] Corbin Duque MD [address] [facility] [address] [place], [place] [id number] Crohn's disease of small and large intestines with complication (CMS/HCC) Discharge Disposition: Discharge to home or self [...] on file Legal Sex Male 7:18 PM [employer] Gender Identity Male 02/04/2019 10:52 AM CDT Sexual Orientation Straight 02/04/2019 10 :52 AM CDT documented as of this encounter Last Filed Vital Signs Vital Sign Reading Time Taken Comments Blood Pressure 104/79 02/06/2021 11:00 AM CDT Pulse 69 02/06/2021 11:00 AM CDT Temperature 36.4 ??C (97.5 ??F) 02/06/2021 10:40 AM C DT Respiratory Rate 18 02/06/2021 11:00 AM CDT Oxygen Saturation 96% 02/06/2021 11:00 AM CDT Inhaled Oxygen Concentration - - Weight - - Height - - Body Mass Index - - documented in this encounter Discharge Diagnoses Diagnosis Crohn's disease of both small and large intestine without complications (HCC) - CROHN'S DISEASE OF BOTH SMALL AND LARGE INTESTINE WITHOUT COMPLICATIONS Essential (primary) hypertension - ESSENTIAL (PRIMARY) HYPERTENSION Unspecified essential hypertension Gastro-esophageal reflux disease without esophagitis - GASTRO-ESOPHAGEAL REFLUX DISEASE WITHOUT ESOPHAGITIS Family history of ischemic heart disease and other diseases of the circulatory system - FAMILY HISTORY OF ISCHEMIC HEART DISEASE AND OTHER DISEASES OF THE CIRCULATORY SYSTEM Personal history of other diseases of the digestive system - PERSONAL HISTORY OF OTHER DISEASES OF THE DIGESTIVE SYSTEM Personal history of nicotine dependence - PERSONAL HISTORY OF NICOTINE DEPENDENCE Acquired absence of other specified parts of digestive tract - ACQUIRED ABSENCE OF OTHER SPECIFIED PARTS OF DIGESTIVE TRACT documented in this encounter Medications at Time of Discharge cyanocobalamin, vitamin B-12, 5,000 mcg tablet, sublingualIndica tions:Prevention of Vitamin B12 Deficiency Place 1 tablet under the tongue cobbler mckay before breakfast losartan-hydroch lorothiazide (HYZAAR) 100-25 mg per tabletIndication s:hypertension Take 1 tablet by mouth nightly 02/23/2019 multivitamin capsuleIndicatio ns:Vitamin Deficiency Prevention Take 1 capsule by mouth cobbler mckay before breakfast cholecalciferol (VITAMIN D-3) 20467 unit tabletIndication s: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) Take 1 tablet (50,000 Units total) by mouth once a week 4 tablet 3 11/21/2020 1 cholestyramine-a spartame 4 gram powderIndication s:for bowel resection Take 1 Scoop by mouth 2 (two) times a day 1 Can 8 01/17/2021 1 diphenhydrAMINE (BENADRYL) 25 mg capsuleIndicatio ns:sleep Take 25 mg by mouth nightly as needed for itching 3 melatonin 5 mg tabletIndication s:sleep Take 5 mg by mouth nightly as needed 3 Stelara injection INJECT 90 MG (1 SYRINGE) UNDER THE SKIN EVERY 8 WEEKS 1 mL 5 06/21/2020 1 tamsulosin (FLOMAX) 0.4 mg extended release capsule Take 1 capsule (0.4 mg total) by mouth nightly 30 capsule 11 09/07/2020 2 traZODone (DESYREL) 50 mg tablet 12/21/2020 3 zolpidem (AMBIEN) 5 mg tablet 0 12/01/2020 3 documented as of this encounter Discharge Disposition Disposition Code Departure Means Destination Discharge to home or self care documented in this encounter H&P Notes * Corbin Duque MD - 02/06/2021 9:39 AM CDT Pre Endoscopy History and Physical Zoey Joseph is a 50 y.o. male who is here for Procedure(s): COLONOSCOPY with chromo The indication(s) for the procedure(s): Crohn's disease. Past Medical History: Diagnosis Date ??? Colon polyp ??? Crohn's disease (CMS/HCC) 2000 ??? DDD (degenerative disc disease), cervical ??? Gastric reflux ??? HTN (hypertension) ??? Kidney stone Past Surgical History: Procedure Laterality Date ??? ANTERIOR CERVICAL DISCECTOMY W/ FUSION 2017 hardware removal 02/2019 ??? APPENDECTOMY ??? BOWEL RESECTION 2008 ??? COLONOSCOPY ??? KIDNEY STONE SURGERY ??? NEPHROSTOGRAM THROUGH EXISTING CATHETER LEFT Left 04/19/2020 Social History Tobacco Use ??? Smoking status: Former Smoker Packs/day: 1.50 Types: Cigarettes Start date: 1993 Quit date: 2003 Years since quittin.4 ??? Smokeless tobacco: Never Used Substance Use Topics ??? Alcohol use: Not Currently Family History Problem Relation Age of Onset ??? Heart attack Father ??? Anesthesia problems Neg Hx Iodinated contrast media Prior to Admission medications Medication Sig Start Date End Date Taking? Authorizing Provider cholecalciferol (VITAMIN D-3) 03594 unit tablet Take 1 tablet (50,000 Units total) by mouth once a week 11/21/20 03/13/21 Yes Corbin Duque MD cholestyramine-aspartame 4 gram powder Take 1 Scoop by mouth 2 (two) times a day 01/17/21 Yes Corbin Duque MD cyanocobalamin, vitamin B-12, 5,000 mcg tablet, sublingual Place 1 tablet under the tongue cobbler mckay before breakfast Yes Rajeev Dee MD diphenhydrAMINE (BENADRYL) 25 mg capsule Take 25 mg by mouth nightly as needed for itching Yes Rajeev Dee MD losartan-hydrochlorothiazide (HYZAAR) 100-25 mg per tablet Take 1 tablet by mouth nightly 02/23/19 Yes Rajeev Dee MD melatonin 5 mg tablet Take 5 mg by mouth nightly as needed Yes Rajeev Dee MD multivitamin capsule Take 1 capsule by mouth cobbler mckay before breakfast Yes Rajeev Dee MD Stelara injection INJECT 90 MG (1 SYRINGE) UNDER THE SKIN EVERY 8 WEEKS 06/21/20 Yes Corbin Duque MD tamsulosin (FLOMAX) 0.4 mg extended release capsule Take 1 capsule (0.4 mg total) by mouth nightly 09/07/20 Yes Hipolito Reyes MD traZODone (DESYREL) 50 mg tablet 12/21/20 Yes Rajeev Dee MD zolpidem (AMBIEN) 5 mg tablet 12/01/20 Yes Rajeev Dee MD Review of Systems A pertinent, focused review of systems was completed and negative, except as noted above. OBJECTIVE: Vitals: Vitals: 02/06/21 0825 BP: 131/90 Pulse: 86 Resp: 15 Temp: 36 ??C (96.8 ??F) TempSrc: Temporal SpO2: 96% Physical Exam: Airway: No significant abnormality. Cardiac: [...] Procedure Notes * Corbin Duque MD - 02/06/2021 9:40 AM CDTAssociated Order(s): COLONOSCOPY GI [facility]OSCOPY [facility] Patient Name: Zoey Joseph Procedure Date: 02/06/2021 9:40 AM Date of : 1970 Admit Type: Outpatient Age: 50 Gender: Male Attending MD: Corbin Duque M.D. Room: [facility] 3 Note Status: Finalized Procedure: Colonoscopy Indications: Follow-up of Crohn's disease of the small bowel and colon Referring MD: Jayla Phoenix MD Providers: Corbin Duque M.D., Jose Prieto M.D. Medicines: Monitored Anesthesia Care Complications: No immediate [...] Prior Anticoagulants: The patient has taken no previous anticoagulant or antiplatelet agents. ASA Grade Assessment: [...] the patient was re-assessed after the procedure. - Immediately prior to administration of medications, the patient was re-assessed for adequacy to receive sedatives. - The risks and benefits of the procedure and the sedation options and risks were discussed with the patient. All questions were answered and informed consent was obtained. The benefits, risks and alternatives of the procedure and sedation were discussed and informed consent was obtained. All questions were answered. Please refer to the signed informed consent document in the medical record. The scope was passed under direct vision. The Colonoscope was introduced through the anus and advanced to 20 cm into the ileum. The colonoscopy was performed without difficulty. The patient tolerated the procedure well. The quality of the bowel preparation was good. The bowel preparation used was CoLyte via split dose instruction. Findings: The colon examined from anus to the IC anastomosis and then 20 cm into the eliud ti. The anastomosis was wide open. The erosions seen in the eliud ti approx 3 were near the anastosmosos. The eliud-terminal ileum contained a few localized non-bleeding erosions. Biopsies were taken with a cold forceps for histology. Verification of patient identification for the specimen was done. Estimated blood loss was minimal. The colon from the anastomosis was intact with mimimal granularity in the rectum. Bx's taken in tx, sig and rectum. Staining chromoscopy with methylene blue was performed using spray chromoendoscopy technique. bx's also taken for consented research studies. The exam was otherwise without abnormality on direct and retroflexion views. Impression: - A few erosions in the eliud-terminal ileum. Biopsied. Chromoscopy performed. - The examination was otherwise normal on direct and retroflexion views. Recommendation: - Discharge patient to home. - Resume previous diet. - Continue present medications. - Await pathology results. - Repeat colonoscopy in 2 years for surveillance. - Return to GI office in 3 months. Attending Participation: I was present and participated during the entire procedure from insertion to removal of the endoscope. Electronically signed by Corbin Duque MD Corbin Duque M.D. 02/06/2021 10:36:23 AM . Number of Addenda: 0 Note Initiated On: 02/06/2021 9:40 AM Recognized by the [employer] for promoting quality in endoscopy documented in this encounter Miscellaneous Notes * Result Encounter Note - Corbin Duque MD - 02/06/2021 11:18 AM CDT Minimal erosive ileitis. documented in this encounter Plan of Treatment Not on file documented as of this encounter Procedures Procedure Name Priority Date/Time Associated Diagnosis Comments SURGICAL PATHOLOGY Routine 02/06/2021 10 :01 AM CDT Crohn's disease of small and large intestines with complication (CMS/HCC) COLONOSCOPY 02/06/2021 9:40 AM CDT COLON BIOPSY 02/06/2021 9:38 AM CDT Crohn's disease of small and large intestines with complication (CMS/HCC) documented in this encounter Results * Surgical pathology (02/06/2021 10:01 AM CDT) Tissue (Ileum, Biopsy) 02/06/2021 10:01 AM CDT Tissue (Ileum, Biopsy) 02/06/2021 10:06 AM CDT Tissue (Colon, Biopsy) 02/06/2021 10:14 AM CDT Tissue (Colon, Biopsy) 02/06/2021 10:18 AM CDT Tissue (Rectal biopsy) 02/06/2021 10:20 AM CDT Narrative PATHOLOGY [facility] - 02/07/2021 10:45 AM CDT EPIC results best viewed via link to PDF [facility] [place] [address] SURGICAL PATHOLOGY REPORT FINAL Patient Name: ?? ZOEY JOSEPH Gender: ??M : ??1970 (Age: 50) Address: ??[address] [place] [id number] Hospital #: ??[id number] Taken:02/06/2021 Received:02/06/2021 Reported: 02/07/2021 Patient Type: [facility] SDS ?? Service: Gastroenterology Location: [facility] Physician(s): ??MD Jayla Ambrocio M.D. Jose Prieto M.D. Clara Henson M.D., Ph.D. Diagnosis: A. ??Small intestine, terminal ileum, biopsy ? - Normal small intestinal mucosa ? B. ??Small intestine, ileum anastamosis site erosion, biopsy ? - Enteric mucosa with focal acute enteritis ?? C. ??Large intestine, transverse colon, biopsy ? - Normal colonic mucosa ? D. ??Large intestine, sigmoid colon, biopsy ? - Normal colonic mucosa ?? E. ??Large intestine, rectum, biospy ? - Normal colonic mucosa ? kxb/02/07/2021 10:41 By this signature, I attest that the above diagnosis is based upon my personal examination of the slides(and/or other material indicated in the diagnosis). Christal Lilly MD Report Electronically Reviewed and Signed Out By ??Christal Lilly MD 02/07/2021 10:45:54 Microscopic Description and Comment: The history of Crohn's disease is noted. Negative for dysplasia, granulomata, and viral cytopathic effect. Microscopic examination substantiates the above cited diagnosis. Logan Cabello M.D ([place])., Ph.D. History: The patient is a 42-year-old man who presents with history of Crohn's disease. ??Operative procedure: Colonoscopy. Specimen(s) Received: A: Terminal ileum biopsies B: Ileum anastamosis site erosion biopsies C: Transverse colon biopsies D: Sigmoid colon biopsies E: Rectal biospies Gross Description: The specimen is received in five formalin filled containers each labeled with the patient's name. The first container is labeled terminal ileum biopsies and contains multiple de leon-pink soft tissue fragments measuring 1.2 x 0.4 x 0.1 cm in aggregate. ??Wrapped. ??Labeled A1. ??Jar 0. The second container is labeled ileum anastomosis site erosion biopsies and contains a 0.4 x 0.2 x 0.1 cm de leon-pink soft tissue fragment. ??Wrapped. ??Labeled B1. ??Jar 0. The third container is labeled transverse colon biopsies and contains multiple de leon-pink soft tissue fragments measuring 0.5 x 0.3 x 0.1 cm in aggregate. ??Wrapped. ??Labeled C1. ??Jar 0. The fourth container is labeled sigmoid colon biopsies and contains multiple de leon-pink soft tissue fragments measuring 0.6 x 0.4 x 0.1 cm in aggregate. ??Wrapped. ??Labeled D1. ??Jar 0. The fifth container is labeled rectal biopsies and contains multiple de leon-pink soft tissue fragments measuring 0.5 x 0.4 x 0.1 cm in aggregate. ??Wrapped. ??Labeled E1. ??Jar 0. and/02/06/2021 13:21 PA(s): Brigida Valenzuela MS, PA ([facility]) By this signature, I attest that the above diagnosis is based upon my personal examination of the slides(and/or other material). Addenda/Procedures The performance characteristics of some immunohistochemical stains, fluorescence in-situ hybridization tests and immunophenotyping by flow cytometry cited in this report (if any) were determined by the Surgical Pathology Department at [facility] as part of an ongoing billing and quality technician program and in compliance with federally mandated [...] performance characteristics determined by the Surgical Pathology Department of [facility]. ??It has not been cleared or approved by the U. S. Food and Drug Administration. IMAGES AND SCANNED DOCUMENTS, IF INCLUDED, ONLY VIEWABLE IN PDF VERSION OF REPORT Corbin Duque MD LAB PATHOLOGY ORDERABLES [facility] Result PATHOLOGY [facility] 3rd Floor [place], [place] [phone] * COLONOSCOPY (02/06/2021 9:40 AM CDT) Anatomical Region Laterality Modality Other Narrative Procedure Note Corbin Duque MD - 02/06/2021 9:40 AM CDT GI ENDOSCOPY [facility] Patient Name: Zoey Joseph Procedure Date: 02/06/2021 9:40 AM Date of : 1970 Admit Type: Outpatient Age: 50 Gender: Male Attending MD: Corbin Duque M.D. Room: [facility] 3 Note Status: Finalized Procedure: Colonoscopy Indications: Follow-up of Crohn's disease of the small bowel and colon Referring MD: Jayla Phoenix MD Providers: Corbin Duque M.D., Jose Prieto M.D. Medicines: Monitored Anesthesia Care Complications: No immediate [...] Prior Anticoagulants: The patient has taken no previous anticoagulant or antiplatelet agents. ASA Grade Assessment: II - A patient withmild systemic disease. After reviewing the risks and [...] monitored throughout the procedure. The physical status ofthe patient was re-assessed after the procedure. - Immediately prior to administration ofmedications, the patient was re-assessed for adequacy to receive sedatives. - The risks and benefits of the procedure and the sedation options and risks were discussed with the patient. All questions were answered and informed consent was obtained. The benefits, risks and alternatives of theprocedure and sedation were discussed and informed consentwas obtained. All questions were answered. Please referto the signed informed consent document in the medical record. The scope was passed under direct vision.The Colonoscope was introduced through the anus and advanced to 20 cm into the ileum. The colonoscopywas performed without difficulty. The patient tolerated the procedure well. The quality of the bowel preparation was good. The bowel preparation usedwas CoLyte via split dose instruction. Findings: The colon examined from anus to the IC anastomosis and then 20 cminto the eliud ti. The anastomosis was wide open. The erosions seen in theneo ti approx 3 were near the anastosmosos. The eliud-terminal ileumcontained a few localized non-bleeding erosions. Biopsies were taken with acold forceps for histology. Verification of patient identification for the specimen was done. Estimated blood loss was minimal. The colon fromthe anastomosis was intact with mimimal granularity in the rectum. Bx's taken in tx, sig and rectum. Staining chromoscopy with methylene blue was performed using spray chromoendoscopy technique. bx's also takenfor consented research studies. The exam was otherwise without abnormality on direct and retroflexion views. Impression: - A few erosions in the eliud-terminal ileum.Biopsied. Chromoscopy performed. - The examination was otherwise normal on directand retroflexion views. Recommendation: - Discharge patient to home. - Resume previous diet. - Continue present medications. - Await pathology results. - Repeat colonoscopy in 2 years for surveillance. - Return to GI office in 3 months. Attending Participation: I was present and participated during the entire procedure from insertion to removal of the endoscope. Electronically signed by Corbin Duque MD Corbin Duque M.D. 02/06/2021 10:36:23 AM . Number of Addenda: 0 Note Initiated On: 02/06/2021 9:40 AM Recognized by the [employer] for promoting quality in endoscopy us Corbin Duque MD ENDOSCOPY PROCEDURES Final Result documented in this encounter Visit Diagnoses Diagnosis Crohn's disease of small and large intestines with complication (HCC)- Primary documented in this encounter Admitting Diagnoses Diagnosis Crohn's disease of small and large intestines with complication (HCC) documented in this encounter Administered Medications Inactive Administered Medications - up to 3 most recent administrations Medication Order MAR Action Action Date Dose Rate Site sodium chloride 0.9% flush 0.5-20 mL 0.5-20 mL, intra-catheter, Every 8 hours scheduled, First dose on Sat02/06/21 at 0900, Pre-Procedure (GI), Flush volume based on line type and size. sodium chloride 0.9% flush 0.5-20 mL 0.5-20 mL, intra-catheter, As needed, line care, Starting on Sat02/06/21 at 0818, Pre-Procedure (GI), Flush volume based on line type and size. Flush before and after each use. sodium chloride 0.9% infusion 30 mL/hr, intravenous, Continuous, Starting on Sat02/06/21 at 0900, Pre-Procedure (GI) Restarted 02/06/2021 9:48 AM CDT Rate/Dose Verify 02/06/2021 9:38 AM CDT 30 mL/h r New Bag 02/06/2021 8:36 AM CDT 30 mL/hr documented in this encounter Active and Recently Administered Medications Times are shown in CDT. Scheduled Medication Order 02/04/2021 02/05/2021 02/06/2021 sodium chloride 0.9% flush 0.5-20 mL 0.5-20 mL, intra-catheter, Every 8 hours scheduled, First dose on Sat02/06/21 at 0900, Pre-Procedure (GI), Flush volume based on line type and size. 0900 (Due) Continuous Medication Order 02/04/2021 02/05/2021 02/06/2021 sodium chloride 0.9% infusion 30 mL/hr, intravenous, Continuous, Starting on Sat02/06/21 at 0900, Pre-Procedure (GI) 0836 (New Bag - Prov ider: Frannie Sidhu CRNA)0938 (Rate/Dose Verify - Provider: Corbin Duque MD)0947 (Paused - Provider: Frannie Sidhu CRNA - Comment: Switch to gravity)0948 (Restarted - Provider: Frannie Sidhu CRNA)1005 (Anesthesia Volume Adjustment - Provider: Frannie Sidhu CRNA)1015 (Anesthesia Volume Adjustment - Provider: Frannie Sidhu CRNA)1116 (Stopped - Provider: Jackie Barillas RN) PRN Medication Order 02/04/2021 02/05/2021 02/06/2021 methylene blue (PROVAYBLUE) (0.5%) 20 mL in sterile water 250 mL irrigation solution (CANCELED) As needed, Starting on Sat02/06/21 at 1000, Intra-Op 1000 (Given - Provid er: Jose Prieto MD) ondansetron (ZOFRAN) injection 4 mg 4 mg, intravenous, Administer over 2 Minutes, Every 30 min PRN, nausea, vomiting, Starting on Sat02/06/21 at 1042, For 2 doses, Recovery (GI), Indications: Nausea and Vomiting simethicone (MYLICON) 40 mg in sterile water 240 mL irrigation solution (CANCELED) As needed, Starting on Sat02/06/21 at 0952, Intra-Op 0952 (Given - Provid er: Jose Prieot MD) sodium chloride 0.9% flush 0.5-20 mL 0.5-20 mL, intra-catheter, As needed, line care, Starting on Sat02/06/21 at 0818, Pre-Procedure (GI), Flush volume based on line type and size. Flush before and after each use. documented in this encounter Orders Medications Ordered That Buck ht Not Have Been Administered Count Last Ordered Date First Ordered Date methylene blue (PROVAYBLUE) (0.5%) 20 mL in sterile water 250 mL irrigation solution 1 02/06/2021 ondansetron (ZOFRAN) injection 4 mg 1 02/06 simethicone (MYLICON) 40 mg in sterile water 240 mL irrigation solution 1 02/06/2021 sodium chloride 0.9% flush 0.5-20 mL 2 01/18 sodium chloride 0.9% infusion 1 02/06/2021 documented in this encounter Care Teams Child Care Center Assistant Director Relationship Specialty Start Date End Date Jayla Phoenix MD [address] [place] [place] [id number] PCP - General 08/07/17 documented as of this encounter
--- OUTSIDE RECORDS SUMMARY | 2024-08-23 08:04 | XMS_ITS | Encounter Summary ---
Author Organization [facility] Address [address] [place] [address] Phone Care Team Providers Care Shipping Order Clerk Name Role Phone Jayla Phoenix MD Primary Care Provider [phone] Encounter Details Date Type Department Care Team (Late st Contact Info) Description 11/14/2020 Orders Only [facility] Gastroenterology [address] [facility] [address] [place] [address] [place] [address] Corbin Duque MD [address] [place] [address] Crohn's disease of both small and large intestine with complication (CMS/HCC) Social History Tobacco Use Types Packs/Day Years Used Date Smoking Tobacco: Former Cigarettes 1.5 9 1 994 - 2003 Smokeless Tobacco: Never Alcohol Use Standard Drinks/Week Comments Not Currently 0 (1 standard drink = 0.6 oz pur e alcohol) Sex and Gender Information Value Date Recorded Sex Assigned at Not on file Legal Sex Male 7:18 PM [employer] Gender Identity Male 02/04/2019 10:52 AM CDT Sexual Orientation Straight 02/04/2019 10 :52 AM CDT documented as of this encounter Ordered Prescriptions Prescription Sig Dispense Quantity Refills Last Filled Start Date End Date cholestyramine-aspa rtame 4 gram powderIndications:f or bowel resection Take 1 Scoop by mouth 2 (two) times a day 1 Can 2 11/14/2020 01/17/2021 documented in this encounter Progress Notes * Bart Armendariz CMA - 11/14/2020 9:54 AM CDT Refill cholestramine light powder documented in this encounter Plan of Treatment Not on file documented as of this encounter Visit Diagnoses Diagnosis Crohn's disease of both small and large intestine with complication (HCC) documented in this encounter Discontinued Medications Medication Sig Discontinue Reason Start Date End Da te cholestyramine-aspartame 4 gram powderIndications:for bowel resection Take 1 Scoop by mouth 2 (two) times a day Reorder 09/09/2020 11/14/2020 documented as of this encounter Care Teams Shipping Order Clerk Relationship Specialty Start Date End Date Jayla Phoenix MD [address] [place], [place] [phone] PCP - General 08/07/17 documented as of this encounter
--- OUTSIDE RECORDS SUMMARY | 2024-08-23 08:04 | XMS_ITS | Encounter Summary ---
Author Organization [facility] Address [address] [place] [address] Phone Care Team Providers Care Lining Stitcher Name Role Phone Jayla Phoenix MD Primary Care Provider [phone] Encounter Details Date Type Department Care Team (Late st Contact Info) Description 09/12/2020 Orders Only [facility] Nephrology [address] [facility] 5th [place] [address] [place] [address] Víctor Amaral RN Social History Tobacco Use Types Packs/Day Years Used Date Smoking Tobacco: Former Cigarettes 1.5 9 1 994 - 2003 Smokeless Tobacco: Never Alcohol Use Standard Drinks/Week Comments Not Currently 0 (1 standard drink = 0.6 oz pur e alcohol) Sex and Gender Information Value Date Recorded Sex Assigned at Not on file Legal Sex 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
--- OUTSIDE RECORDS SUMMARY | 2024-08-23 08:04 | XMS_ITS | Encounter Summary ---
Author Organization [facility] Address [address] [place] [address] Phone Care Team Providers Care Research Dairy Farm Supervisor Name Role Phone Jayla Phoenix MD Primary Care Provider [phone] Encounter Details Date Type Department Care Team (Late st Contact Info) Description 09/09/2020 Orders Only [facility] Gastroenterology [address] [facility] 2nd Floor [address] [place] [address] Corbin Duque MD [address] [place] [address] Crohn's disease of both small [...] on file Legal Sex Male 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 Gender Identity Male 02/04/2019 10:52 AM CDT Sexual Orientation Straight 02/04/2019 10 :52 AM CDT documented as of this encounter Ordered Prescriptions Prescription Sig Dispense Quantity Refills Last Filled Start Date End Date cholestyramine-aspa rtame 4 gram powderIndications:f or bowel resection Take 1 Scoop by mouth 2 (two) times a day 1 Can 2 09/09/2020 11/14/2020 documented in this encounter Plan of Treatment Not on file documented as of this encounter Visit Diagnoses Diagnosis Crohn's disease of both small and large intestine with complication (HCC) documented in this encounter Discontinued Medications Medication Sig Discontinue Reason Start Date End Da te cholestyramine-aspartame 4 gram powderIndications:for bowel resection Take 1 Scoop by mouth 2 (two) times a day Reorder 2020 09/09/2020 documented as of this encounter Care Teams Research Dairy Farm Supervisor Relationship Specialty Start Date End Date Jayla Phoenix MD [address] [place] [address] PCP - General 08/07/17 documented as of this encounter
--- OUTSIDE RECORDS SUMMARY | 2024-08-23 08:04 | XMS_ITS | Encounter Summary ---
Author Organization [facility] Address [address] [place] [address] Phone Care Team Providers Care Linux Kernel Engineer Name Role Phone Jayla Phoenix MD Primary Care Provider [phone] Encounter Details Date Type Department Care Team (Late st Contact Info) Description 12/21/2020 9:45 AM CDT Office Visit [facility] Gastroenterology [address] [facility] Medical Office Building 2 [address] [place] [address] Corbin Duque MD [address] [place] [address] Crohn's disease of small and large intestines with complication (CMS/HCC) (Primary Dx); High risk medications (not anticoagulants) long-term use; Crohn's disease of both small and large intestine with other complication (CMS/HCC) Social History Tobacco Use Types Packs/Day Years Used Date Smoking Tobacco: Former Cigarettes 1.5 9 1 994 - 2003 Smokeless Tobacco: Never Alcohol Use Standard Drinks/Week Comments Not Currently 0 (1 standard drink = 0.6 oz pur e alcohol) Sex and Gender Information Value Date Recorded Sex Assigned at Not on file Legal Sex Male 7:18 PM RN VASCULAR Gender Identity Male 02/04/2019 10:52 AM CDT Sexual Orientation Straight 02/04/2019 10 :52 AM CDT documented as of this encounter Last Filed Vital Signs Vital Sign Reading Time Taken Comments Blood Pressure 122/84 12/21/2020 9:46 AM CDT Pulse 85 12/21/2020 9:46 AM CDT Temperature 36.6 ??C (97.8 ??F) 12/21/2020 9:46 AM CD T Respiratory Rate - - Oxygen Saturation - - Inhaled Oxygen Concentration - - Weight 98.9 kg (218 lb) 12/21/2020 9:46 AM CDT Height 188 cm (6' 2 ) 12/21/2020 9:46 AM CDT Body Mass Index 27.99 12/21/2020 9:46 AM CDT documented in this encounter Patient Instructions * Patient Instructions* Michelle Hazel RN - 12/21/2020 9:45 AM CDT Colonoscopy Labs today Follow up in 3-4 months documented in this encounter Progress Notes * Stefany Zuniga NP - 12/21/2020 9:45 AM CDT Subjective NAME: Kristian Vasques : 1970 DATE: 12/21/20 Referred here Primary Care Physician: Jayla Phoenix MD Consult requested by: Jayla Phoenix MD Chief Complaint: Crohn's disease HPI Kristian Vasques, is a 50 y.o.male who presents for follow up penetrating ileocolonic Crohn's disease after start of Stelara 05/[address] Prior to this he had been on no therapy since his IC resection in 2008 secondary to small bowel obstruction. Prior to his resection he had been on pentasa. He was diagnosed in 2000. Recent MRE in February showed active disease and fistula at the anastamosis. Colonoscopy in March showed active inflammation as well. Therefore started on stelara. On stelara every 8 weeks. 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 ??No new site of inflammation identified in the small or large bowel loops were noted and no evidence of bowel obstruction. Stelara level in September was 7.7, ?? Doing fairly well on Stlelara. He has noted some new symptoms over the past several months. Having rectal itching. Has also noted leakage of stool with episodes of soiling his underwear. Also intermittent episodes of hematochezia with blood in the water and toilet paper with wiping. Denies any nausea or vomiting. Having 1-3 stools daily on average. Some occasional urgency. Fatigue a little bettersince his last office visit now having insomnia and has started ambien. Trazadone, melatonin and benadryl were ineffective. Has noted some disseminated small red bumps on chest and back this week. This is not itchy or painful. Has some occasional joint pain in his knees usually occurring at the endof the day. 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 Denies any abdominal pain. Denies any fevers or chills. Takes questran twice daily. Patient Active Problem List Diagnosis Date Noted ??? Crohn's disease of small and large intestines with complication ([facility]) 12/21/2020 Added automatically from request for surgery [id number] ??? Urinary frequency 09/13/2020 ??? High risk medications (not anticoagulants) long-term use 05/18/2020 ??? Bilateral nephrolithiasis 04/05/2020 Added automatically from request for surgery [id number] ??? 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 Crohn's disease of both small and large intestine with other complication ([facility]) 01/22/2020 Year of diagnosis: 2000. Year symptoms began: 2000. Phenotype: Penetrating (B3) without perianal disease. Distribution: ileocolonic (L3) without upper GI disease (L4). Extraintestinal manifestations: arthralgias. Complications: hx SBO Kidney stones, hydronephrosis Prior treatments: pentasa. Current treatment: Stelara (started 04/2020), level 7.7 09/2020 FC 22 02/2020 Prior surgeries: IC resection 2008. Endoscopies: Colonoscopy 04/04/2020 A few ulcers in the [...] HEALTH MAINTENANCE HBV vaccination status: Non immune ??? Cervical disc herniation 02/02/2019 Added automatically from request for surgery [id number] ??? Cervical radiculopathy 02/02/2019 Added automatically from request for surgery [id number] ??? Fusion of spine of cervical region 02/02/2019 Added automatically from request for surgery [id number] ??? Cervical radiculopathy at C7 01/23/2019 ??? Cervical pain (neck) 09/03/2017 Past Medical History: Diagnosis Date ??? Crohn's disease (CMS/HCC) 2000 ??? DDD (degenerative disc disease), cervical ??? Gastric reflux ??? HTN (hypertension) Past Surgical History: Procedure Laterality Date ??? ANTERIOR CERVICAL DISCECTOMY W/ FUSION 2018 hardware removal 02/2019 ??? BOWEL RESECTION 2008 ??? KIDNEY STONE SURGERY ??? NEPHROSTOGRAM THROUGH [...] Social Determinants of Health Financial Resource Strain: ??? Difficulty of Paying Living Expenses: Food Insecurity: ??? Worried About Running Out of Food in the Last Year: ??? Ran Out of Food in the Last Year: Transportation Needs: ??? Lack of Transportation (Medical): ??? Lack of Transportation (Non-Medical): Physical Activity: ??? Days of Exercise per Week: ??? Minutes of Exercise per Session: Stress: ??? Feeling of Stress : Social Connections: ??? Frequency of Communication with Friends and Family: ??? Frequency of Social Gatherings with Friends and Family: ??? Attends Faith Services: ??? Active Member of Clubs or Organizations: ??? Attends Club or Organization Meetings: ??? Marital Status: Intimate Partner Violence: ??? Fear of Current or Ex-Partner: ??? Emotionally Abused: ??? Physically Abused: ??? Sexually Abused: Allergies Allergen Reactions ??? Iodinated Contrast Media Rash Current Outpatient Medications Medication Sig Dispense Refill ??? cholecalciferol (VITAMIN D-3) 15715 unit tablet Take 1 tablet (50,000 Units total) by mouth once a week 4 tablet 3 ??? cholestyramine-aspartame 4 gram powder Take 1 Scoop by mouth 2 (two) times a day 1 Can 2 ??? cyanocobalamin, vitamin B-12, 5,000 mcg tablet, sublingual Place 1 tablet under the tongue broadband technician before breakfast ??? losartan-hydrochlorothiazide (HYZAAR) 100-25 mg per tablet Take 1 tablet by mouth nightly ??? melatonin 5 mg tablet Take 5 mg by mouth nightly as needed ??? multivitamin capsule Take 1 capsule by mouth broadband technician before breakfast ??? Stelara injection INJECT 90 MG (1 SYRINGE) UNDER THE SKIN EVERY 8 WEEKS 1 mL 5 ??? tamsulosin (FLOMAX) 0.4 mg extended release capsule Take 1 capsule (0.4 mg total) by mouth nightly 30 capsule 11 ??? traZODone (DESYREL) 50 mg tablet ??? zolpidem (AMBIEN) 5 mg tablet 0 ??? diphenhydrAMINE (BENADRYL) 25 mg capsule Take 25 mg by mouth nightly as needed for itching No current facility-administered medications for this visit. The new patient intake form was reviewed with the patient on @DATE@. Review of Systems: Constitutional: Negative. HENT: Negative for sore throat and trouble swallowing. Eyes: Negative. Respiratory: Negative. Cardiovascular: Negative. Gastrointestinal: See HPI Endocrine: Negative. Genitourinary: Negative. Musculoskeletal: Negative. Skin: Negative. Allergic/Immunologic: Negative. Neurological: Negative. Hematological: Negative. Psychiatric/Behavioral: Negative. Breast: Negative. Vital Signs: BP 122/84 Pulse 85 Temp 36.6 ??C (97.8 ??F) Ht 188 cm (6' 2 ) Wt 98.9 kg (218 lb) BMI 27.99 kg/m?? Physical Exam: GENERAL: Well-appearing, in no [...] known visit with results is: Lab on 09/07/2020 Component Date Value Ref Range Status ??? Sodium 09/07/2020 138 135 - 145 mmol/L Final ??? Potassium, pl 09/07/2020 4.4 3.3 - 4.9 mmol/L Final ??? Chloride 09/07/2020 103 97 - 110 mmol/L Final ??? CO2 09/07/2020 26 22 - 32 mmol/L Final ??? Anion gap 09/07/2020 9 2 - 15 mmol/L Final ??? BUN 09/07/2020 18 8 - 25 mg/dL Final ??? Creatinine 09/07/2020 1.13 0.80 - 1.30 mg/dL Final ??? Glucose 09/07/2020 97 70 - 199 mg/dL Final ??? Calcium 09/07/2020 9.3 8.5 - 10.3 mg/dL Final ??? Bilirubin, total 09/07/2020 0.3 0.1 - 1.2 mg/dL Final ??? Protein, pl 09/07/2020 6.8 6.5 - 8.5 g/dL Final ??? Albumin 09/07/2020 4.3 3.5 - 5.0 g/dL Final ??? Alk phos 09/07/2020 94 40 - 130 Units/L Final ??? ALT 09/07/2020 54 7 - 55 Units/L Final ??? AST 09/07/2020 29 10 - 50 Units/L Final ? ? CRP 09/07/2020 1.9 <=10.0 mg/L Final ??? WBC 09/07/2020 6.1 3.8 - 9.9 K/cumm Final ??? Hgb 09/07/2020 14.3 13.0 - 17.5 g/dL Final ??? Hct 09/07/2020 42.2 38.9 - 50.3 % Final ??? Plt 09/07/2020 317 150 - 400 K/cumm Final ??? MPV 09/07/2020 9.2 9.1 - 12.3 fL Final ??? RBC 09/07/2020 4.87 4.30 - 5.80 M/cumm Final ??? MCV 09/07/2020 86.7 81.3 - 96.4 fL Final ??? MCH 09/07/2020 29.4 27.1 - 33.3 pg Final ??? MCHC 09/07/2020 33.9 32.3 - 35.7 g/dL Final ??? RDW CV 09/07/2020 13.2 11.1 - 14.9 % Final ??? RDW SD 09/07/2020 42.1 35.7 - 48.1 fL Final ??? NRBC abs 09/07/2020 0.00 0.00 - 0.01 K/cumm Final ??? TSH 09/07/2020 1.30 0.30 - 4.20 mcIUnit/mL Final ??? Cyanocobalamin (Vit B12) 09/07/2020 1,978* 230 - 1,250 pg/mL Final ??? Neutrophil abs 09/07/2020 3.5 1.7 - 6.5 K/cumm Final ??? Imm gran abs 09/07/2020 0.0 0.0 - 0.1 K/cumm Final ??? Lymphocyte abs 09/07/2020 1.9 0.8 - 3.3 K/cumm Final ??? Monocyte abs 09/07/2020 0.5 0.2 - 0.8 K/cumm Final ??? Eosinophil abs 09/07/2020 0.1 0.0 - 0.5 K/cumm Final ??? Basophil abs 09/07/2020 0.1 0.0 - 0.1 K/cumm Final ??? Neutrophil pct 09/07/2020 57.7 % Final ??? Imm gran pct 09/07/2020 0.3 % Final ??? Lymphocyte pct 09/07/2020 31.2 % Final ??? Monocyte pct 09/07/2020 8.7 % Final ??? Eosinophil pct 09/07/2020 1.1 % Final ??? Basophil pct 09/07/2020 1.0 % Final ? ? Bilirubin, direct 09/07/2020 <0.2 0.1 - 0.3 mg/dL Final ??? GFR 09/07/2020 76 mL/min/1.73 m2 Final Imaging Review none ASSESSMENT and PLAN: Crohn's disease Penetrating IC crohn's on Stelara. Recent MRE looked good. Having new hematochezia and seepage of stool. -continue stelara -continue safety labs -check colonoscopy -continue questran -continue vitamin D supplementation -has had covid vaccination x 2 with moderna -follow up in 2-3 months ?? High risk medications: As with all patients [...] Plan notes found for this encounter. No problem-specific Assessment & Plan notes found for this encounter. Return in about 3 months (around 03/23/2021). Cosigned by Corbin Duque MD at 12/21/2020 11:13 PM CDT Associated attestation - Corbin Duque MD - 12/21/2020 11:13 PM CDT I have seen and examined the patient in conjunction with the Nurse Practitioner. Please refer to the HEALTH SERVICE COORDINATOR note for PMH and ROS. History: Patient with both fibrostenotic and penetrating CD He is having some seepage from anus andhematochezia. Physical Exam: GENERAL: Well-appearing, in no acute [...] insight, memory, affect, and orientation Lab/Radiology/Diagnostics Review: As above the most recent imaaaging looked better but does have fistulae Assessment/Plan At this point time for re evaluation and based on that adjust accordingly. Discussed with patient who agrees. NB: Todays labs reviewed, CBC, CMP, CRP ok. Vit d borderline and repeat in 6 mo. Corbin Duque MD, FACP, FACG, AGAF, JUSTEN surgical technology instructor [facility] Gastro[facility]ology Division [facility] [address] [place] [address] Academic office [phone] documented in this encounter Plan of Treatment Not on file documented as of this encounter Results * T-SPOT.TB (12/21/2020 2:02 PM CDT) [facility] T-SPOT.TB Negative SeeBel R[facility]AN S[facility] Comment: Normal Value: Negative A negative test result does not exclude the possibility of exposure to or infection with Mycobacterium tuberculosis (M. tuberculosis). ??Patients with recent exposure to TB infected individuals exhibiting a negative T-SPOT.TB result should be considered for retesting within 6 weeks or if other relevant clinical symptoms indicate. ??Results from T-SPOT.TB testing must be used in conjunction with each individual's epidemiological history, current medical status, and results of other diagnostic evaluations. ??The T-SPOT.TB test is qualitative and results are reported as positive, borderline or negative, given that the test controls perform as expected. In line with the Centers for Disease Control and Prevention's 2010 recommendation to report quantitative measurements alongside the qualitative result, the laboratory provides spot counts for informational purposes only. ??The T-SPOT.TB test should not be interpreted as a quantitative test. T-SPOT.TB Panel A Spot Count 0 [facility] T-SPOT.TB Panel B Spot Count 1 [facility] T-SPOT.TB Negative Control Passed [facility] T-SPOT.TB Positive Control Passed RYAN S[facility] Comment: Test Performed at: [address], [place], [place] ??[address] ? GEORGI ASTORGA MD,PHD Blood specimen (specimen) 12/21/2020 2:02 PM CDT 12/21/2020 2:37 PM CDT Corbin Duque MD LAB MICROBIOLOGY - GENERAL ORDERABLES Final Result [facility] [id number] [facility] [employer] [place], [place] [id number] * (ABNORMAL) Vitamin D 25 hydroxy (12/21/2020 2:02 PM CDT) Vitamin D 25-OH 27(L) 30 - 80 ng/mL RYAN BILLY Comment:Testing performed by : [facility], [address] [facility], [place]., [address] Blood specimen (specimen) 12/21/2020 2:02 PM CDT 12/21/2020 3:34 PM CDT Corbin Duque MD LAB BLOOD ORDERABLES Final Result Performing Organization Address [facility]/ZIP Co de Phone Number [facility] [address] [facility] [place] [address] * CRP (acute phase) (12/21/2020 2:02 PM CDT) CRP <3.0 <=10.0 mg/L R[facility]AN SEN Blood specimen (specimen) 12/21/2020 2:02 PM CDT 12/21/2020 2:06 PM CDT Corbin Duque MD LAB BLOOD ORDERABLES Final Result [facility] [address] [facility]. [place] [address] * Comprehensive metabolic panel (12/21/2020 2:02 PM CDT) Sodium 139 135 - 145 mmol/L [facility] Potassium, pl 4.2 3.3 - 4.9 mmol/L [facility] Chloride 103 97 - 110 mmol/L [facility] CO2 26 22 - 32 mmol/L [facility] Anion gap 10 2 - 15 mmol/L [facility] BUN 20 8 - 25 mg/dL [facility] Creatinine 1.13 0.80 - 1.30 mg/dL [facility] Glucose 98 70 - 199 mg/dL [facility] Comment: Interpretive Data Fasting glucose >/= 126 mg/dl is diagnostic for diabetes. ?? Fasting is defined as no caloric intake for at least 8 hours. Fasting glucose between 100 mg/dl to 125 mg/dl is diagnostic of prediabetes. In a patient with classic symptoms of hyperglycemia or hyperglycemic crisis, a random glucose >/= 200 mg/dl is diagnostic for diabetes. In the absence of unequivocal hyperglycemia, results should be confirmed by repeat testing. The classification and Diagnosis of Diabetes Diabetes Care 2017;40 (Suppl. 1):S11. Current interpretive data was last revised 2017. Calcium 9.5 8.5 - 10.3 mg/dL [facility] Bilirubin, total 0.2 0.1 - 1.2 mg/dL [facility] Protein, pl 6.5 6.5 - 8.5 g/dL [facility] Albumin 3.8 3.5 - 5.0 g/dL [facility] Alk phos 78 40 - 130 Units/L [facility] ALT 30 7 - 55 Units/L [facility] AST 23 10 - 50 Units/L [facility] Blood specimen (specimen) 12/21/2020 2:02 PM CDT 12/21/2020 2:06 PM CDT us Corbin Duque MD LAB BLOOD ORDERABLES Final Result [facility] [id number] [facility]. [place] [address] * CBC with auto differential (12/21/2020 2:02 PM CDT) Pathologist [facility] WBC 5.8 3.8 - 9.9 K/cumm [facility] Hgb 14.1 13.0 - 17.5 g/dL [facility] Hct 41.5 38.9 - 50.3 % [facility] Plt 286 150 - 400 K/cumm [facility] MPV 9.8 9.1 - 12.3 fL [facility] RBC 4.75 4.30 - 5.80 M/cumm [facility] MCV 87.4 81.3 - 96.4 fL [facility] MCH 29.7 27.1 - 33.3 pg [facility] MCHC 34.0 32.3 - 35.7 g/dL [facility] RDW CV 13.0 11.1 - 14.9 % [facility] RDW SD 41.9 35.7 - 48.1 fL [facility] NRBC abs 0.00 0.00 - 0.01 K/cumm [facility] Blood specimen (specimen) 12/21/2020 2:02 PM CDT 12/21/2020 2:06 PM CDT us Corbin Duque MD LAB BLOOD ORDERABLES Final Result [facility] [id number] [facility]. [place] [address] documented in this encounter Visit Diagnoses Diagnosis Crohn's disease of small and large intestines with complication (HCC)- Primary High risk medications (not anticoagulants) long-term use Encounter for long-term (current) use of other medications Crohn's disease of both small and large intestine with other complication (HCC) documented in this encounter Discontinued Medications Medication Sig Discontinue Reason Start Date End Da te docusate sodium (COLACE) 100 mg capsuleIndications:co nstipation Take 1 capsule (100 mg total) by mouth 2 (two) times a day as needed for constipation Therapy completed 04/15/2020 12/21/2020 oxyCODONE (ROXICODONE) 5 mg immediate release tabletIndications:Bishnu n Take 1 tablet (5 mg total) by mouth every 6 (six) hours as needed for pain Therapy completed 04/15/2020 12/21/2020 acetaminophen 500 mg capsuleIndications:Pa in Take 2 capsules (1,000 mg total) by mouth every 6 (six) hours For pain Therapy completed 04/15/2020 12/21/2020 documented as of this encounter Historical Medications * This list may reflect changes made after this encounter. Medication Sig Dispense Quantity Refills Last Filled Start D ate End Date zolpidem (AMBIEN) 5 mg tablet 0 12/01/2020 04/17/2023 traZODone (DESYREL) 50 mg tablet 12/21/2020 09/19/2022 added in this encounter Orders Case Request Count Last Ordered Date First Orde red Date CASE REQUEST GI 1 12/21/2020 documented in this encounter Care Teams Linux Kernel Engineer Relationship Specialty Start Date End Date Jayla Phoenix MD [address] [place] [address] PCP - General 08/07/17 documented as of this encounter
--- OUTSIDE RECORDS SUMMARY | 2024-08-23 08:04 | XMS_ITS | Encounter Summary ---
Author Organization [facility] Address [address] [place] [address] Phone Care Team Providers Care Train Dispatcher Name Role Phone Jayla Phoenix MD Primary Care Provider [phone] Reason for Referral * Diagnostic Imaging (Routine) - Closed Specialty Diagnoses / Procedures Referred By Contac t Referred To Contact Radiology Diagnoses 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) Procedures MRI Enterography (abdomen) W WO Contrast Corbin Duque MD [address] [place] [address] Phone: tel: fax: [address] [address] Referral ID Status Reason Start Date Expiration Date Visits Re quested Visits Authorized [id number] Closed 09/07/2020 10/07/2021 1 1 [employer]ISOR LOOPING Encounter Details Date Type Department Care Team (Late st Contact Info) Description 09/07/2020 10:15 AM SUPERVISOR LOOPING Office Visit [facility] Gastroenterology [address] [facility] Medical Office Building [address] [place] [address] Corbin Duque MD [address] [place] [address] 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) (Primary Dx); High risk medications (not [...] file Legal Sex Male 7:18 PM SUPERVISOR LOOPING Gender Identity Male 02/04/2019 10:52 AM CDT Sexual Orientation Straight 02/04/2019 10 :52 AM CDT documented as of this encounter Last Filed Vital Signs Vital Sign Reading Time Taken Comments Blood Pressure 131/84 09/07/2020 10:02 AM SUPERVISOR LOOPING Pulse 96 09/07/2020 10:02 AM SUPERVISOR LOOPING Temperature 36.6 ??C (97.9 ??F) 09/07/2020 1 0:02 AM SUPERVISOR LOOPING Respiratory Rate - - Oxygen Saturation - - Inhaled Oxygen Concentration - - Weight 100.2 kg (220 lb 12.8 oz) 2020 10:02 AM SUPERVISOR LOOPING Height 188 cm (6' 2 ) 09/07/2020 10:02 AM SUPERVISOR LOOPING Body Mass Index 28.35 09/07/2020 10:02 AM SUPERVISOR LOOPING documented in this encounter Patient Instructions * Patient Instructions* Michelle Hazel RN - 09/07/2020 10:15 AM SUPERVISOR LOOPING Labs today MR enterography Stelara level a few days before your next injection Follow up in 3 months [employer]OR [employer]ING RV[employer]ING documented in this encounter Progress Notes * Stefany Zuniga NP - 09/07/2020 10:15 AM CST Subjective NAME: Kristian Vasques : 1970 DATE: 09/07/20 Referred here Primary Care Physician: Jayla Phoenix MD Consult requested by: Jayla Phoenix MD Chief Complaint: Crohn's disease HPI Kristian Vasques, is a 50 y.o.male who presents for follow up penetrating ileocolonic Crohn's disease after start of Stelara 05/06. Prior to this he had been on no therapy since his IC resection in 2008 secondary to small bowel obstruction. Prior to his resection he had been on pentasa. He was diagnosed in 2000. Recent MRE in February showed active disease and fistula at the anastamosis. Colonoscopy in March showed active inflammation as well. Doing fairly well on Stlelara. He does note some fatigue about a week after his injection that lasts for about 3-4 days.He is having 1-2 stools daily. No abdominal pain. Patient Active Problem List Diagnosis Date Noted ??? High risk medications (not anticoagulants) long-term use 05/18/2020 ??? Bilateral nephrolithiasis 04/05/2020 Added automatically from request for surgery [id number] ??? 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) 03/03/2020 Added automatically from request for surgery [id number] ??? Crohn's disease of both small and large intestine with other complication (CMS/HCC) 01/22/2020 Year of diagnosis: 2000. Year symptoms began: 2000. Phenotype: Penetrating (B3) without perianal disease. Distribution: ileocolonic (L3) without upper GI disease (L4). Extraintestinal manifestations: arthralgias. Complications: hx SBO Prior treatments: pentasa. Current treatment: Stelara (started 04/2020) Prior surgeries: IC resection 2008. Endoscopies: Colonoscopy 04/04/2020 A few ulcers in the terminal ileum. Biopsied. - Simple Endoscopic Score for Crohn's Disease: 3, mucosal inflammatory changes secondary to Crohn's disease with ileitis. Biopsied. PATH: A. ??Small intestine, eliud terminal ileum, biopsy ? - Small intestinal mucosa with acute ileitis ? B. ??Large intestine, transverse, biopsy ? - Normal colonic mucosa ? C. ??Large intestine, sigmoid, biopsy ? - Normal colonic mucosa ? D. ??Large intestine, rectum, biopsy ? - Normal colonic mucosa ? Imaging: MRE 02/2020. 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 ?? 2. Suspected obstructing 1.2 cm left ureteral calculus at the ureteropelvic junction.0 [facility] [employer] HBV vaccination status: Non immune ??? Cervical disc herniation 02/02/2019 Added automatically from request for surgery [id number] ??? Cervical radiculopathy 02/02/2019 Added automatically from request for surgery [id number] ??? Fusion of spine of cervical region 02/02/2019 Added automatically from request for surgery [id number] ??? Cervical radiculopathy at C7 01/23/2019 ??? [...] file Occupational History ??? Not on file Social Needs ??? Financial resource strain: Not on file ??? Food insecurity Worry: Not on file Inability: Not on file ??? Transportation needs Medical: Not on file Non-medical: Not on file Tobacco Use ??? Smoking status: Former Smoker Packs/day: 1.50 Types: Cigarettes Start date: 1993 Quit date: 2003 Years since quittin.0 ??? Smokeless tobacco: Never Used Substance and Sexual Activity ??? Alcohol use: Not Currently ??? Drug use: No ??? Sexual activity: Not on file Lifestyle ??? Physical activity Days per week: Not on file Minutes per session: Not on file ??? Stress: Not on file Relationships ??? Social connections Talks on phone: Not on file Gets together: Not on file Attends orthodox service: Not on file Active member of club or organization: Not on file Attends meetings of clubs or organizations: Not on file Relationship status: Not on file ??? Intimate partner violence Fear of current or ex partner: Not on file Emotionally abused: Not on file Physically abused: Not on file Forced sexual activity: Not on file Other Topics Concern ??? Not on file Social History Narrative ??? Not on file Allergies Allergen Reactions ??? Iodinated Contrast Media Rash Current Outpatient Medications Medication Sig Dispense Refill ??? cholestyramine-aspartame 4 gram powder Take 1 Scoop by mouth 2 (two) times a day 1 Can 2 ??? cyanocobalamin, vitamin B-12, 5,000 mcg tablet, sublingual Place 1 tablet under the tongue plastic surgery assistant before breakfast ??? ergocalciferol (VITAMIN D) 50,000 unit capsule Take 1 capsule (50,000 Units total) by mouth once a week 4 capsule 2 ??? losartan-hydrochlorothiazide (HYZAAR) 100-25 mg per tablet Take 1 tablet by mouth nightly ??? melatonin 5 mg tablet Take 5 mg by mouth nightly as needed ??? multivitamin capsule Take 1 capsule by mouth plastic surgery assistant before breakfast ??? Stelara injection INJECT 90 MG (1 SYRINGE) UNDER THE SKIN EVERY 8 WEEKS 1 mL 5 ??? acetaminophen 500 mg capsule Take 2 capsules (1,000 mg total) by mouth every 6 (six) hours For pain (Patient not taking: Reported on 05/18/2020) 120 tablet 0 ??? diphenhydrAMINE (BENADRYL) 25 mg capsule Take 25 mg by mouth nightly as needed for itching ??? docusate sodium (COLACE) 100 mg capsule Take 1 capsule (100 mg total) by mouth 2 (two) times a day as needed for constipation (Patient not taking: Reported on 05/18/2020) 60 capsule 0 ??? oxyCODONE (ROXICODONE) 5 mg immediate release tablet Take 1 tablet (5 mg total) by mouth every 6 (six) hours as needed for pain (Patient not taking: Reported on 05/18/2020) 10 tablet 0 ??? tamsulosin (FLOMAX) 0.4 mg extended release capsule Take 1 capsule (0.4 mg total) by mouth nightly 30 capsule 11 No current facility-administered medications for this visit. The new patient intake form was reviewed with the patient on @DATE@. Review of Systems: Constitutional: Negative. HENT: Negative for sore throat and trouble swallowing. Eyes: Negative. Respiratory: Negative. Cardiovascular: Negative. Gastrointestinal: See HPI Endocrine: Negative. Genitourinary: Negative. Musculoskeletal: Negative. Skin: Negative. Allergic/Immunologic: Negative. Neurological: Negative. Hematological: Negative. Psychiatric/Behavioral: Negative. Breast: Negative. Vital Signs: BP 131/84 Pulse 96 Temp 36.6 ??C (97.9 ??F) Ht 188 cm (6' 2 ) Wt 100.2 kg (220 lb 12.8 oz) BMI 28.35 kg/m?? Physical Exam: GENERAL: Well-appearing, in no [...] known visit with results is: Lab on 05/18/2020 Component Date Value Ref Range Status ??? Sodium 05/18/2020 140 135 - 145 mmol/L Final ??? Potassium, pl 05/18/2020 4.6 3.3 - 4.9 mmol/L Final ??? Chloride 05/18/2020 105 97 - 110 mmol/L Final ??? CO2 05/18/2020 25 22 - 32 mmol/L Final ??? Anion gap 05/18/2020 10 2 - 15 mmol/L Final ??? BUN 05/18/2020 13 8 - 25 mg/dL Final ??? Creatinine 05/18/2020 1.00 0.80 - 1.30 mg/dL Final ??? Glucose 05/18/2020 89 70 - 199 mg/dL Final ??? Calcium 05/18/2020 9.1 8.5 - 10.3 mg/dL Final ??? Bilirubin, total 05/18/2020 0.2 0.1 - 1.2 mg/dL Final ??? Protein, pl 05/18/2020 6.6 6.5 - 8.5 g/dL Final ??? Albumin 05/18/2020 3.9 3.5 - 5.0 g/dL Final ??? Alk phos 05/18/2020 94 40 - 130 Units/L Final ??? ALT 05/18/2020 50 7 - 55 Units/L Final ??? AST 05/18/2020 29 10 - 50 Units/L Final ??? GFR 05/18/2020 89 mL/min/1.73 m2 Final Imaging Review none ASSESSMENT and PLAN: Crohn's disease Penetrating IC crohn's on Stelara -continue stelara -continue safety labs -check stelara trough -check repeat MRE -with fatigue check B12 and TSh -follow up in 2-3 months High risk medications: As with all [...] encounter. Return in about 3 months (around 12/06/2020). Cosigned by Corbin Duque MD at 09/07/2020 10:38 PM SUPERVISOR LOOPING RVISOR LOOPING RV[employer]OR LOOPING Associated attestation - Corbin Duque MD - 09/07/2020 10:38 PM SUPERVISOR LOOPING I have seen and examined the patient in conjunction with the Nurse Practitioner. Please refer to the BEHAVIORAL HEALTH CLINICIAN note for PMH and ROS. History: Patient with penetrating CD with enteroocoloonic fistula seen in the past best on MRE. Physical Exam: GENERAL: Well-appearing, in no acute [...] insight, memory, affect, and orientation Lab/Radiology/Diagnostics Review: Pending Assessment/Plan MRE and checking the stelara level. Continue current meds and f/up in 3 mo unless significant adverse findings are noted on MRE. Corbin Duque MD, FACP, FACG, [employer] fire and safety helper [facility] Gastroenterology Division [facility] [address] [place] [address] Academic office [phone] documented in this encounter Plan of Treatment Not on file documented as of this encounter Results * MRI Enterography (abdomen) W WO Contrast (09/17/2020 10:20 AM SUPERVISOR LOOPING) Anatomical Region Laterality Modality Body N/A Magnetic Resonan ce 09/18/2020 2:54 PM SUPERVISOR LOOPING Impressions 09/18/2020 2:54 PM SUPERVISOR LOOPING 1. ??Enterocolic fistula at the level of the ileocolic anastomosis which appears fibrosed in the mid segment and decreased in thickness compared to the prior exam. 2. ??No new site of inflammation identified in the small or large bowel loops. ??No evidence of bowel obstruction. 3. Unchanged left renal stones. ??Left inferior calyceal dilatation suggestive of possible infundibular stenosis. ??There is progressive hydronephrosis in the left kidney which becomes evident at the end of the examination suspicious for a stricture/stone at the left ureteropelvic junction. ??If clinically warranted, this can be further evaluated with CT. Electronically signed by: Tony Emerson 09/18/2020 2:54 PM SUPERVISOR LOOPING EXAMINATION: MAGNETIC RESONANCE IMAGING OF THE ABDOMEN WITH AND WITHOUT CONTRAST HISTORY: 50-year-old man with Crohn's disease status post ileocecal resection, currently on Stelara. TECHNIQUE: Magnetic resonance imaging of the abdomen was performed prior to and following the uneventful administration of intravenous Gadolinium contrast. Oral Volumen and 1 mg of intravenous glucagon was administered prior to the examination. Protocol: MR Enterography Contrast: Dotarem 20 mL COMPARISON: MR enterography from 02/29/[address] abdomen and pelvis from 04/13/2020. FINDINGS: Bowel: Postsurgical changes of ileocecectomy and ileocolic anastomosis are seen in the right hemiabdomen. There is an enterocolic fistula along the posterior aspect of the colon with the neoterminal ileum that appears predominantly fibrotic in the central portion (image 27 series 3). ??There is delayed pattern enhancement suggestive of fibrosis along the mid aspect of the fistula (image 36 series 26). ??No new site of disease is identified. Liver/Bile Ducts: The liver is normal without focal lesions. ??There is no intrahepatic or extrahepatic biliary ductal dilatation. Gallbladder: Normal. Pancreas: Normal. Spleen: Normal. Adrenals: Normal. Kidneys: T2 hypointense foci in the left renal collecting system interpolar region correlate with calcified stones on the comparison CT. There is calyceal dilation in the left kidney inferior pole status post previously seen stent removal which could be secondary to an infundibular stricturing. ??Filling defects are seen in the dilated calyces consistent with a stone. ??Cortical cysts are present in the left kidney inferior pole. ??There is mild to moderate hydronephrosis in the left kidney at the end of the examination when there is contrast excretion (image 29 series 29). Bladder: Normal. Reproductive organs: There is low signal within the peripheral zone likely representing prostatitis. ??The seminal vesicles are normal. Other Findings: There is no ascites. ??No intra-abdominal fluid collection is identified. ??No lymphadenopathy is seen. Procedure Note Sabine Wilson MD - 09/18/2020 EXAMINATION: MAGNETIC RESONANCE IMAGING OF THE ABDOMEN WITH AND WITHOUT CONTRAST HISTORY: 50-year-old man with Crohn's disease status post ileocecal resection, currently on Stelara. TECHNIQUE: Magnetic resonance imaging of the abdomen was performed prior to and following the uneventful administration of intravenous Gadolinium contrast. Oral Volumen and 1 mg of intravenous glucagon was administered prior to the examination. Protocol: MR Enterography Contrast: Dotarem 20 mL COMPARISON: MR enterography from 02/29/[address] abdomen and pelvis from 04/13/2020. FINDINGS: Bowel: Postsurgical changes of ileocecectomy and ileocolic anastomosis are seen in the right hemiabdomen. There is an enterocolic fistula along the posterior aspect of the colon with the neoterminal ileum that appears predominantly fibrotic in the central portion (image 27 series 3). There is delayed pattern enhancement suggestive of fibrosis along the mid aspect of the fistula (image 36 series 26). No new site of disease is identified. Liver/Bile Ducts: The liver is normal without focal lesions. There is no intrahepatic or extrahepatic biliary ductal dilatation. Gallbladder: Normal. Pancreas: Normal. Spleen: Normal. Adrenals: Normal. Kidneys: T2 hypointense foci in the left renal collecting system interpolar region correlate with calcified stones on the comparison CT. There is calyceal dilation in the left kidney inferior pole status post previously seen stent removal which could be secondary to an infundibular stricturing. Filling defects are seen in the dilated calyces consistent with a stone. Cortical cysts are present in the left kidney inferior pole. There is mild to moderate hydronephrosis in the left kidney at the end of the examination when there is contrast excretion (image 29 series 29). Bladder: Normal. Reproductive organs: There is low signal within the peripheral zone likely representing prostatitis. The seminal vesicles are normal. Other Findings: There is no ascites. No intra-abdominal fluid collection is identified. No lymphadenopathy is seen. IMPRESSION: 1. Enterocolic fistula at the level of [...] this can be further evaluated with CT. Electronically signed by: Sabine Wilson M.D. us Corbin Duque MD IMG MRI PROCEDURES Final Re sult * Comprehensive metabolic panel (09/07/2020 2:06 PM SUPERVISOR LOOPING) Sodium 138 135 - 145 mmol/L [facility] Potassium, pl 4.4 3.3 - 4.9 mmol/L [facility] Chloride 103 97 - 110 mmol/L [facility] CO2 26 22 - 32 mmol/L [facility] Anion gap 9 2 - 15 mmol/L [facility] BUN 18 8 - 25 mg/dL [facility] Creatinine 1.13 0.80 - 1.30 mg/dL [facility] Glucose 97 70 - 199 mg/dL [facility] Comment: [...] interpretive data was last revised 2017. Calcium 9.3 8.5 - 10.3 mg/dL [facility] Bilirubin, total 0.3 0.1 - 1.2 mg/dL [facility] Protein, pl 6.8 6.5 - 8.5 g/dL [facility] Albumin 4.3 3.5 - 5.0 g/dL [facility] Alk phos 94 40 - 130 Units/L [facility] ALT 54 7 - 55 Units/L [facility] AST 29 10 - 50 Units/L [facility] Blood specimen (specimen) 09/07/2020 2:06 PM SUPERVISOR LOOPING 09/07/2020 2:20 PM SUPERVISOR LOOPING us Corbin Duque MD LAB BLOOD ORDERABLES Edited Result - Final [facility] [id number] [facility] [place] [address] * CRP (acute phase) (09/07/2020 2:06 PM SUPERVISOR LOOPING) [facility] CRP 1.9 <=10.0 mg/L [facility] Blood specimen (specimen) 09/07/2020 2:06 PM SUPERVISOR LOOPING 09/07/2020 2:20 PM SUPERVISOR LOOPING Corbin Duque MD LAB BLOOD ORDERABLES Edited Result - Final Performing Organization Address [facility] Co de Phone Number RYAN SEN [address] [facility] [place] [address] * CBC with auto differential (09/07/2020 2:06 PM SUPERVISOR LOOPING) [facility] WBC 6.1 3.8 - 9.9 K/cumm [facility] Hgb 14.3 13.0 - 17.5 g/dL [facility] Hct 42.2 38.9 - 50.3 % [facility] Plt 317 150 - 400 K/cumm [facility] MPV 9.2 9.1 - 12.3 fL [facility] RBC 4.87 4.30 - 5.80 M/cumm [facility] MCV 86.7 81.3 - 96.4 fL [facility] MCH 29.4 27.1 - 33.3 pg [facility] MCHC 33.9 32.3 - 35.7 g/dL [facility] RDW CV 13.2 11.1 - 14.9 % [facility] R[facility] SD 42.1 35.7 - 48.1 fL [facility] NRBC abs 0.00 0.00 - 0.01 K/cumm [facility] Blood specimen (specimen) 09/07/2020 2:06 PM SUPERVISOR LOOPING 09/07/2020 2:20 PM SUPERVISOR LOOPING Corbin Duque MD LAB BLOOD ORDERABLES Final Result Performing Organization Address City/State/[facility] Co de Phone Number RYAN CARDENASCH [phone] [address] [facility] [address] [place], [place] [id number] * TSH reflex to free T4 (09/07/2020 2:06 PM SUPERVISOR LOOPING) TSH 1.30 0.30 - 4.20 mcIUnit/mL RYAN BILLY Blood specimen (specimen) 09/07/2020 2:06 PM SUPERVISOR LOOPING 09/07/2020 2:20 PM SUPERVISOR LOOPING Corbin Duque MD LAB BLOOD ORDERABLES Edited Result - Final Performing Organization Address [facility] Co de Phone Number RYAN CARDENASCH [phone] [address] [facility] [address] [place], [place] [id number] * (ABNORMAL) Vitamin B12 (09/07/2020 2:06 PM SUPERVISOR LOOPING) Vitamin B12 1,978(H) 230 - 1,250 pg/mL RYAN CARDENASW Comment:Testing performed by : [facility], [address] [place] [address], [place]., [address] Blood specimen (specimen) 09/07/2020 2:06 PM SUPERVISOR LOOPING 09/07/2020 5:07 PM SUPERVISOR LOOPING Corbin Duque MD LAB BLOOD ORDERABLES Final Result Performing Organization Address [facility] Co de Phone Number RYAN CARDENASWCH [phone] [address] [facility] [place] [address] documented in this encounter Visit Diagnoses Diagnosis 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)- Primary High risk medications (not anticoagulants) long-term use Encounter for long-term (current) use of other medications 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) documented in this encounter Care Teams Train Dispatcher Relationship Specialty Start Date End Date Jayla Phoenix MD [address] [place] [id number] (work) PCP - General 08/07/17 documented as of this encounter
--- OUTSIDE RECORDS SUMMARY | 2024-08-23 08:04 | XMS_ITS | Encounter Summary ---
Author Organization [facility] Healthcare Address [address] [place] [address] Care Team Providers Care Heel Washer Stringing Machine Operator Name Role Phone Jayla Phoenix MD Primary Care Provider Encounter Details Date Type Department Care Team ([facility] st Contact Info) Description 02/06/2021 9:15 AM CDT - 02/06/2021 10:15 AM CDT Surgery [facility] Digestive [facility] [place] [address] [place] [address] Corbin Duque MD [address] [facility] [address] [place] [address] COLON BIOPSY Surgery Details Date/Time Status Location OR Service Patient Class Case Class Case Type Trauma Case? 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 Gender Identity Male 02/04/2019 10:52 AM CDT Sexual Orientation Straight 02/04/2019 10 :52 AM CDT documented as of this encounter Last Filed Vital Signs Vital Sign Reading Time Taken Comments Blood Pressure 131/90 02/06/2021 8:25 AM CDT Pulse 86 02/06/2021 8:25 AM CDT Temperature 36 ??C (96.8 ??F) 02/06/2021 8:25 AM CDT Respiratory Rate 15 02/06/2021 8:25 AM CDT Oxygen Saturation 96% 02/06/2021 8:25 AM CDT Inhaled Oxygen Concentration - - Weight - - Height - - Body Mass Index - - documented in this encounter Medications at Time of Discharge cyanocobalamin, vitamin B-12, 5,000 mcg tablet, sublingualIndica tions:Prevention of Vitamin B12 Deficiency Place 1 tablet under the tongue news director before breakfast losartan-hydroch lorothiazide (HYZAAR) 100-25 mg per tabletIndication s:hypertension Take 1 tablet by mouth nightly 02/23/2019 multivitamin capsuleIndicatio ns:Vitamin Deficiency Prevention Take 1 capsule by mouth news director before breakfast cholecalciferol (VITAMIN D-3) 09120 unit tabletIndication s:Crohn's disease of both small [...] Date Taking? Authorizing Provider cholecalciferol (VITAMIN D-3) 19902 unit tablet Take 1 tablet (50,000 Units total) by mouth once a week 11/21/20 03/13/21 Yes Corbin Duque MD cholestyramine-aspartame 4 gram powder Take 1 Scoop by mouth 2 (two) times a day 01/17/21 Yes Corbin Duque MD cyanocobalamin, vitamin B-12, 5,000 mcg tablet, sublingual Place 1 tablet under the tongue news director before breakfast Yes Rajeev Dee MD diphenhydrAMINE [...] multivitamin capsule Take 1 capsule by mouth news director before breakfast Yes Rajeev Dee MD Stelara [...] Male Attending MD: Corbin Duque M.D. Room: [facility] 3 Note Status: Finalized Procedure: [...] On: 02/06/2021 9:40 AM Recognized by the [place] [employer] for promoting quality [...] biopsy) 02/06/2021 10:20 AM CDT Narrative PATHOLOGY [facility] - 02/07/2021 10:45 AM CDT [facility] results best viewed via link to PDF [facility] Od[facility] [place] [address] SURGICAL PATHOLOGY REPORT FINAL Patient Name: ?? ZOEY JOSEPH Gender: ??M : ??1970 (Age: 50) Address: ??[address] [place] [address] ??[address] Hospital #: ??[id number] Taken:02/06/2021 Received:02/06/2021 Reported: 02/07/2021 Patient Type: [facility] SDS ?? Service: Gastroenterology Location: [facility] Physician(s): ??MD Jayla Ambrocio M.D. Jose Prieto [...] labeled transverse colon biopsies and contains multiple del eon-pink soft tissue fragments measuring 0.5 x 0.3 [...] in aggregate. ??Wrapped. ??Labeled E1. ??Jar 0. and02/06/2021 13:21 PA(s): Brigida Valenzuela MS, PA ([facility]) By this signature, I attest that the above diagnosis is based upon my personal examination of the slides(and/or other material). Addenda/Procedures The performance characteristics of some immunohistochemical stains, fluorescence in-situ hybridization tests and immunophenotyping by flow cytometry cited in this report (if any) were determined by the Surgical Pathology Department at [facility] as part of an ongoing software quality assurance specialist program and in compliance with federally mandated [...] determined by the Surgical Pathology Department of [facility]. ??It has not been cleared or approved by the U. S. Food and Drug Administration. IMAGES AND SCANNED DOCUMENTS, IF INCLUDED, ONLY VIEWABLE IN PDF VERSION OF REPORT us Corbin Duque MD LAB PATHOLOGY ORDERABLES Count includes the [facility] Result PATHOLOGY [facility] 3rd Floor [place], [place] [phone] * COLONOSCOPY (02/06/2021 9:40 AM CDT) Anatomical Region Laterality Modality Other Narrative Procedure Note Corbin Duque MD - 02/06/2021 9:40 AM CDT [facility] Patient Name: Zoey Joseph Procedure Date: 02/06/2021 9:40 AM Date of : 1970 Admit Type: Outpatient Age: 50 Gender: Male Attending MD: Corbin Duque M.D. Room: [facility] 3 Note Status: Finalized Procedure: [...] On: 02/06/2021 9:40 AM Recognized by the [place] [employer] for promoting quality in endoscopy Corbin Duque MD ENDOSCOPY PROCEDURES Final Result documented in this encounter Visit Diagnoses Diagnosis Crohn's disease of small and large intestines with complication (HCC)- Primary Crohn's disease of small and large intestines with complication (HCC) documented in this encounter Admitting Diagnoses Diagnosis Crohn's disease of small and large intestines with complication (HCC) documented in this encounter Administered Medications Inactive Administered Medications - up to 3 most recent administrations Medication Order MAR Action Action Date Dose Rate Site methylene blue (PROVAYBLUE) (0.5%) 20 mL in sterile water 250 mL irrigation solution As needed, Starting on Sat02/06/21 at 1000, Intra-Op Given 02/06/2021 10:00 AM CDT GI Tract simethicone (MYLICON) 40 mg in sterile water 240 mL irrigation solution As needed, Starting on Sat02/06/21 at 0952, Intra-Op Given 02/06/2021 9:52 AM CDT 60 mL GI Tract sodium chloride 0.9% flush 0.5-20 [...] Intra-Op 0952 (Given - Provid er: Jose Prieto MD) sodium chloride 0.9% flush 0.5-20 mL 0.5-20 mL, intra-catheter, As needed, line care, Starting on Sat02/06/21 at 0818, Pre-Procedure (GI), Flush volume based on line type and size. Flush before and after each use. documented in this encounter Orders Medications Ordered That Buck ht Not Have Been Administered Count Last Ordered Date First Ordered Date ondansetron (ZOFRAN) injection 4 mg 1 02/06 sodium chloride 0.9% flush 0.5-20 mL 2 01/18 sodium chloride 0.9% infusion 1 02/06/2021 documented in this encounter Care Teams Heel Washer Stringing Machine Operator Relationship Specialty Start Date End Date Jayla Phoenix MD [address] [id number] PCP - General 08/07/17 documented as of this encounter
--- OUTSIDE RECORDS SUMMARY | 2024-08-23 08:04 | XMS_ITS | Encounter Summary ---
Author Organization [facility] Address [address] [place] [address] Phone Care Team Providers Care Workers Compensation Specialist Name Role Phone Jayla Phoenix MD Primary Care Provider [phone] Reason for Visit * Reason Comments Nephrolithiasis * Consultation (Routine) - Closed Specialty Diagnoses / Procedures Referred By Elina senior Referred To Contact Urology Diagnoses Kidney stone on left side Hydronephrosis with ureteropelvic junction (UPJ) obstruction Corbin Duque MD [address] [place] [address] Phone: tel: fax: [facility] (All Locations) Referral ID Status Reason Start Date Expiration Date V isits Requested Visits Authorized [id number] Closed Specialty Services Required 03/02/2020 09/11/2021 99 99 Encounter Details Date Type Department Care Team (Late st Contact Info) Description 09/07/2020 12:30 PM BRASS SORTER Office Visit [facility] Urology [address] [place] [address] Hipolito Reyes MD [address] [place] [address] Bilateral nephrolithiasis (Primary Dx); Urinary frequency Social History Tobacco Use Types Packs/Day Years Used Date Smoking Tobacco: Former Cigarettes 1.5 9 1 994 - 2003 Smokeless Tobacco: Never Alcohol Use Standard Drinks/Week Comments Not Currently 0 (1 standard drink = 0.6 oz pur e alcohol) Sex and Gender Information Value Date Recorded Sex Assigned at Not on file 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 Nephrolithiasis History of Present Illness: Kristian Vasques is a 50 y.o. male With hx of nephrolithiasis s/p left PCNL 03/2020. He is doing well. Working on reducing salt, eating more fruit, and he is taking citracal for hyperoxaluria. He is having urinary frequency, urgency, and nocturia, although he does feel like he is able to void to completion with a strong stream. IPSS total: 10 Incomplete emptying 0 Frequency 5 Intermittency 0 Urgency 3 Weak stream 0 Straining 1 Nocturia 1x Quality of life 3 The patient's past medical, surgical, medication, allergy, family, and social histories were reviewed and noncontributory to this illness/condition except as noted below: The patient's past medical history is notable for: Past Medical History: Diagnosis Date ??? Crohn's disease (CMS/HCC) 2000 ??? DDD (degenerative disc disease), cervical ??? Gastric reflux ??? HTN (hypertension) The patient's past surgical history is notable for: Past Surgical History: Procedure Laterality Date ??? ANTERIOR CERVICAL DISCECTOMY W/ FUSION 2018 hardware removal 02/2019 ??? BOWEL RESECTION 2008 ??? KIDNEY STONE SURGERY ??? NEPHROSTOGRAM THROUGH EXISTING CATHETER LEFT Left 04/19/2020 The patient is currently taking the following medications: Current Outpatient Medications Medication Sig Dispense Refill ??? acetaminophen 500 mg capsule Take 2 capsules (1,000 mg total) by mouth every 6 (six) hours For pain (Patient not taking: Reported on 05/18/2020) 120 tablet 0 ??? cholestyramine-aspartame 4 gram powder Take 1 Scoop by mouth 2 (two) times a day 1 Can 2 ??? cyanocobalamin, vitamin B-12, 5,000 mcg tablet, sublingual Place 1 tablet under the tongue electrician apprentice before breakfast ??? diphenhydrAMINE (BENADRYL) 25 mg capsule Take 25 mg by mouth nightly as needed for itching ??? docusate sodium (COLACE) 100 mg capsule Take 1 capsule (100 mg total) by mouth 2 (two) times a day as needed for constipation (Patient not taking: Reported on 05/18/2020) 60 capsule 0 ??? ergocalciferol (VITAMIN D) 50,000 unit capsule Take 1 capsule (50,000 Units total) by mouth once a week 4 capsule 2 ??? losartan-hydrochlorothiazide (HYZAAR) 100-25 mg per tablet Take 1 tablet by mouth nightly ??? melatonin 5 mg tablet Take 5 mg by mouth nightly as needed ??? multivitamin capsule Take 1 capsule by mouth electrician apprentice before breakfast ??? oxyCODONE (ROXICODONE) 5 mg immediate release tablet Take 1 tablet (5 mg total) by mouth every 6 (six) hours as needed for pain (Patient not taking: Reported on 05/18/2020) 10 tablet 0 ??? Stelara injection INJECT 90 MG (1 SYRINGE) UNDER THE SKIN EVERY 8 WEEKS 1 mL 5 No current facility-administered medications for this visit. [...] file Gets together: Not on file Attends faith service: Not on file Active member of [...] Social History Narrative ??? Not on file Review of systems was performed, and all others negative except as per scanned form. Below is a selected list of pertinent data to this encounter. Constitutional: denies fever and chills CV: denies angina/chest pain Pulm: no cough or shortness of breath GI: + Crohn's Endocrine: No diabetes mellitus. No gout. Hematologic: No known excessive bleeding with surgery. No anemia. No blood clots. MSK: Denies difficulty with ambulation Neurologic: No stroke/TIA or other brain injury. No spinal cord injury. No chronic headaches Eyes: No vision changes Psychiatric: No anxiety. No depression. Imunologic: No HIV. Skin: No rashes. : + urgency and frequency of urination. + nephrolithiasis Physical Exam There were no vitals filed for this visit. Gen: NAD Neuro: Alert, conversation appropriate Skin: No rashes or lesions of exposed skin Head: normocephalic Eyes: no strabismus Neck: trachea midline. Pulm: respirations non-labored CV: extremities and mucous membranes pink MSK: ambulates without assistance The following lab results were personally reviewed by me: Objective: Labs Reviewed Lab Results Component Value Date CREATININE 1.00 05/18/2020 No results found for: PSA The following images were personally reviewed by me. No results found. Orders: No orders of the defined types were placed in this encounter. Assessment: Kristian Vasques is a 50 y.o. male with hx of nephrolithiasis. He also has LUTS. Plan: Continue to work on good fluid intake, increasing fresh fruit and vegetables, and citracal with meals. Will plan on renal/bladder ultrasound and repeating litholink in late spring / early summer of thisyear - *need to schedule at next office visit. Start tamsulosin to see if this helps with LUTS. F/U 2 months. It may very well be that his LUTS are mostly due to the increased fluid since his stream he feels is strong and he feels like he emptiesto completion. Thank you for allowing us to participate in the care of this patient. Please do not hesitate to contact us should you have any questions or concerns at [phone]. S SORTER documented in this encounter Plan of Treatment Not on file documented as of this encounter Visit Diagnoses Diagnosis Bilateral nephrolithiasis- Primary Urinary frequency documented in this encounter Care Teams Workers Compensation Specialist Relationship Specialty Start Date End Date Jayla Phoenix MD [address] [place] [address] PCP - General 08/07/17 documented as of this encounter
--- OUTSIDE RECORDS SUMMARY | 2024-08-23 08:04 | XMS_ITS | Encounter Summary ---
Author Organization [facility] Healthcare Address [address] [place] [address] Care Team Providers Care Baker Paint Name Role Phone Jyala Phoenix MD Primary Care Provider [phone] Encounter Details Date Type Department Care Team (Late st Contact Info) Description 09/16/2020 Telephone [facility] [address] [place] [address] Clari West, RT Social History Tobacco Use Types Packs/Day Years Used Date Smoking Tobacco: Former Cigarettes 1.5 9 1 994 - 2002 Smokeless Tobacco: Never Alcohol Use Standard Drinks/Week Comments Not Currently 0 (1 standard drink = 0.6 oz pur e alcohol) Sex and Gender Information Value Date Recorded Sex Assigned at Not on file 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
--- OUTSIDE RECORDS SUMMARY | 2024-08-23 08:04 | XMS_ITS | Encounter Summary ---
Author Organization [facility] Address [address] [place] [address] Phone Care Team Providers Care Guest Service Manager Name Role Phone Jayla Phoenix MD Primary Care Provider [phone] Encounter Details Date Type Department Care Team (Late st Contact Info) Description 04/10/2021 Orders Only [facility] Gastroenterology [address] [facility] [address]th [place] [address] [place] [address] Corbin Duque MD [address] [place] [address] Crohn's disease of small and large intestines with complication (CMS/HCC) (HCC) (Primary Dx); High risk medications (not anticoagulants) long-term use; Vitamin D deficiency Social History Tobacco Use Types Packs/Day Years [...] on file 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 Gender Identity Male 02/04/2019 10:52 AM CDT Sexual Orientation Straight 02/04/2019 10 :52 AM CDT documented as of this encounter Plan of Treatment Scheduled Orders Name Type Priority Associated Diagnoses Orde r Schedule CBC with auto differential Lab Routine Crohn's disease of small and large intestines with complication (CMS/HCC) High risk medications (not anticoagulants) long-term use Expected: 04/10/2021, Expires: 04/10/2022 Comprehensive metabolic panel Lab Routine Crohn's disease of small and large intestines with complication (CMS/HCC) High risk medications (not anticoagulants) long-term use Expected: 04/10/2021, Expires: 04/10/2022 CRP (acute phase) Lab Routine Crohn's disease of small and large intestines with complication (CMS/HCC) High risk medications (not anticoagulants) long-term use Expected: 04/10/2021, Expires: 04/10/2022 Vitamin D 25 hydroxy Lab Routine Crohn's disease of small and large intestines with complication (CMS/HCC) High risk medications (not anticoagulants) long-term use Vitamin D deficiency Expected: 04/10/2021, Expires: 04/10/2022 documented as of this encounter Visit Diagnoses Diagnosis Crohn's disease of small and large intestines with complication (HCC)- Primary High risk medications (not anticoagulants) long-term use Encounter for long-term (current) use of other medications Vitamin D deficiency documented in this encounter Care Teams Guest Service Manager Relationship Specialty Start Date End Date Jayla Phoenix MD [address] [place] [address] PCP - General 08/07/17 documented as of this encounter
--- OUTSIDE RECORDS SUMMARY | 2024-08-23 08:04 | XMS_ITS | Encounter Summary ---
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 Name Role Phone Jayla Phoenix MD Primary Care Provider [phone] Reason for Referral * Diagnostic Imaging (Routine) - Closed Specialty Diagnoses / Procedures Referred By Contac t Referred To Contact Diagnoses Thoracic spine pain Procedures XR Spine Thoracic 2 View Christina Phoenix MD Phone: tel: fax: [facility] Referral ID Status Reason Start Date Expiration Date Visits Re quested Visits Authorized [id number] Closed 03/13/2021 04/12/2022 1 1 * MRI/CAT/PET Scan (Routine) - Closed Specialty Diagnoses / Procedures Referred By Contac t Referred To Contact Radiology Diagnoses Fusion of spine of cervical region Procedures MRI Spine Cervical and Thoracic WO Contrast Christina Phoenix MD Phone: tel: fax: [address] [address] Referral ID Status Reason Start Date Expiration Date Visits Re quested Visits Authorized [id number] Closed 03/17/2021 04/15/2021 1 1 * Diagnostic Imaging (Routine) - Closed Specialty Diagnoses / Procedures Referred By Contac t Referred To Contact Diagnoses Fusion of spine of cervical region Procedures XR Spine Cervical W Flexion And Extension 6 or More Views Christina Phoenix MD Phone: tel: fax: [facility] Referral ID Status Reason Start Date Expiration Date Visits Re quested Visits Authorized [id number] Closed 03/07/2021 04/06/2022 1 1 Reason for Visit * Reason Comments New Patient Encounter Details Date Type Department Care Team (Late st Contact Info) Description 03/13/2021 8:20 AM CDT Office Visit 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 Gender Identity Male 02/04/2019 10:52 AM CDT Sexual Orientation Straight 02/04/2019 10 :52 AM CDT documented as of this encounter Last Filed Vital Signs Vital Sign Reading Time Taken Comments Blood Pressure - - Pulse - - Temperature - - Respiratory Rate - - Oxygen Saturation - - Inhaled Oxygen Concentration - - Weight 98.9 kg (218 lb) 03/13/2021 7:57 AM CDT Height 188 cm (6' 2 ) 03/13/2021 7:57 AM CDT Body Mass Index 27.99 03/13/2021 7:57 AM CDT documented in this encounter Patient Instructions * Patient Instructions* Faisal Verde, MR TEACHER - 03/13/2021 8:20 AM CDT Thank you for your visit today. Dr. Christina Phoenix has recommended the following treatment: Cervical/Thoracic Spine MRI Thoracic Spine Xrays to be done today at visit. [facility] RADIOLOGY - Magnetic Resonance Imaging (MRI) Exams , 03/30/2021 @ 5:15pm for an MRI of your Cervical/Thoracic spine. This appointment is located at [facility], [address] [place] [address]. Please arrive at 4:45pm for registration. MRI Location Need a little extra help finding us? We will meet you at the door and escort you to your MRI appointment. Call [phone] or email [email or web address] Welcome to [facility] Radiology. Your physician has scheduled you for an MRI exam in Radiology. MRI is a painless, non-invasive diagnostic exam that produces images of the body by using apowerful magnet, radio frequencies, and an advanced computer. MRI uses no radiation. SCHEDULING & PRE-REGISTRATION For your convenience, MRI appointments are available 7 days a week including evening appointments M-F. MRI exams are by appointment only and are scheduled by your referring physician. Please make sure to pre-register for your MRI prior to your arrival. To pre-register or to reschedule your MRI exam, please call Radiology Scheduling at [phone] ortoll free at [phone], M-F from 7:00am to 5:30pm. If you are scheduled at [facility] you will call [phone] opt 4. PRIOR TO YOUR EXAM Please confirm with your referring physician's office that any precertification required by your insurance has been done before your arrival. To save time please print, fill out, and bring to your appointment a completed MRI Safety ScreeningForm and a completed Medication Record. Forms can be found at [email or web address] Take your medication as you normally do, unless your referring physician has told you otherwise. You do not need to fast for your MRI exam, unless otherwise directed by your referring physician. However, you should only eat something light, do not have a full stomach. If you are claustrophobic, ask your referring physician for a prescription to help you relax beforeyour MRI exam. The MRI Department can not administer medications. Do not take the medication until you are in the MRI department and have spoken to the MRI Charge Technologist. Patients with pace makers need to notify the MRI department at [phone] as soon as possible. 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 Some MRI exams require contrast. For the majority of MRI exams, this is administered by IV. SAFETY You will be positioned on a table within a strong magnetic field. Therefore, for safety you will need to change into a provided gown and pants and remove all loose metal. LENGTH OF MRI VISIT A typical MRI visit lasts 90 minutes, however some exams may take longer. For a more exact length of time for your specific exam please call the MRI department at [phone]. AFTER YOUR EXAM All radiology exams are read by a physician known as a Radiologist. The radiologists at [facility] are all specialized experts in their field. The radiologist will report your MRI results to your referring physician within 24 hours. Your referring physician's office will discuss the results with you. QUESTIONS Visit our website at [email or web address] or call the MRI Department at [phone]. Please let me know if you have any questions. LEONID Nobles II Vaccinator to Dr. Christina Phoenix Department of Orthopedic Spine Surgery [facility] [address] [address] P: [phone] F: [phone] documented in this encounter Progress Notes * Christina Phoenix MD - 03/13/2021 8:20 AM CDT New Patient Visit Chief Complaint Postop History of Present Illness This is a very pleasant 50-year-old gentleman who is status post 2 cervical anterior spine operations with Dr. Horner most recently a C6-C7 anterior cervical diskectomy and fusion in 2019. He presents today for routine follow-up. He does report the past month he has developed some neck pain and left-sided posterior shoulder pain. He reports that he is still able to do the things that he wants to do. 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 He additionally likes to play golf for fun. He presents today with his . He also reports of note that his balance has been getting progressively worse. He does not have anyissues with a handwriting or fine upper extremity tasks. Past Medical History, Past Surgical History, Initial Review of Medications, Drug Allergies, Social History, Family History, and Review of Systems Past Medical History: Diagnosis Date ??? Colon polyp ??? Crohn's disease ([facility]) 2000 ??? DDD (degenerative disc disease), cervical ??? Gastric reflux ??? HTN (hypertension) ??? Kidney stone Past Surgical History: Procedure Laterality Date ??? ANTERIOR CERVICAL DISCECTOMY W/ FUSION 2018 hardware removal 02/2019 ??? APPENDECTOMY ??? BOWEL RESECTION 2008 ??? COLONOSCOPY ??? KIDNEY STONE SURGERY ??? NEPHROSTOGRAM THROUGH EXISTING CATHETER LEFT Left 04/19/2020 Current Outpatient Medications Medication Sig Dispense Refill ??? cholecalciferol (VITAMIN D-3) 97606 unit tablet Take 1 tablet (50,000 Units total) by mouth once a week 4 tablet 3 ??? cholestyramine-aspartame 4 gram powder Take 1 Scoop by mouth 2 (two) times a day 1 Can 8 ??? cyanocobalamin, vitamin B-12, 5,000 mcg tablet, sublingual Place 1 tablet under the tongue face cleaner before breakfast ??? diphenhydrAMINE (BENADRYL) 25 mg capsule Take 25 mg by mouth nightly as needed for itching ??? losartan-hydrochlorothiazide (HYZAAR) 100-25 mg per tablet Take 1 tablet by mouth nightly ??? melatonin 5 mg tablet Take 5 mg by mouth nightly as needed ??? multivitamin capsule Take 1 capsule by mouth face cleaner before breakfast ??? Stelara injection INJECT 90 MG (1 SYRINGE) UNDER THE SKIN EVERY 8 WEEKS 1 mL 5 ??? tamsulosin (FLOMAX) 0.4 mg extended release capsule Take 1 capsule (0.4 mg total) by mouth nightly 30 capsule 11 ??? traZODone (DESYREL) 50 mg tablet ??? zolpidem (AMBIEN) 5 mg tablet 0 No current facility-administered medications for this visit. Allergies Allergen Reactions ??? Iodinated Contrast Media Rash Social History Socioeconomic History ??? Marital status: Spouse name: Not on file ??? Number of children: Not on file ??? Years of education: Not on file ??? Highest education level: Not on file Occupational History ??? Not on file Tobacco Use ??? Smoking status: Former Smoker Packs/day: 1.50 Types: Cigarettes Start date: 1993 Quit date: 2002 Years since quittin.5 ??? Smokeless tobacco: Never [...] Gatherings with Friends and Family: ??? Attends [employer] Services: ??? Active Member of Clubs or Organizations: ??? Attends Club or Organization Meetings: ??? Marital Status: Intimate Partner Violence: ??? Fear of Current or Ex-Partner: ??? Emotionally Abused: ??? Physically Abused: ??? Sexually Abused: Family History Problem Relation Age of Onset ??? Heart attack Father ??? Anesthesia problems Neg Hx Review of Systems Review of Systems Physical Examination WEIGHT/BMI: Estimated body mass index is 27.99 kg/m?? as calculated from the following: Height as of this encounter: 188 cm (6' 2 ). Weight as of this encounter: 98.9 kg (218 lb). Constitutional: Oriented to person, place, and time and well-developed, well- nourished, and in no distress. HENT: Neck symmetric without obvious masses. Head: Normocephalic and atraumatic. Right Ear: External ear normal. Left Ear: External ear normal. Eyes: Pupils are equal, round, and reactive to light. Conjunctivae and EOM are normal. Cardiovascular: extremities WWP. Pulmonary/Chest: Effort normal. Abdominal: Soft. Exhibits no distension. Neurological: Alert and oriented to person, place, and time. Skin: Skin is warm and dry. Psychiatric: Mood, memory, affect and judgment normal. Spine Exam: The patient ambulates with a normal gait. He is able to stand on his toes, stand on his heels, and is able to stand on each leg independently. The patient can perform a tandem heel to toe gait. The patient is able to squat down and rise back up. He stands in normal coronal and sagittal alignment. Cervical range of motion is normal. Lumbar range of motion is normal. Shoulder range of motion doesn't exacerbate the patient's symptoms. Spurling's test is mildly positive for neck pain. Neurologic: Motor strength examination demonstrates normal motor strength throughout the upper and lower extremities. Sensation to light touch is intact. Reflexes are normal and symmetric throughout the upper and lower extremities with the exception of 3+ reflexes in his bilateral patellae. Rivera sign is negative bilaterally. Babinski sign is equivocal bilaterally. He has 4 beats of clonus and straight in2 beats of clonus on his left. Review of Plain Radiographs/Studies X-rays of the cervical spine demonstrate prior fusion at C5-C6 and appears solidly fused. Additionally he has instrumentation including a plate and screws at C6-C7. I do not see any motion on flexion-extension. I am not sure if this is fused or not. Impression/Diagnosis Two years status post C6-C7 anterior cervical diskectomy and fusion and many years status post a C5-C6 anterior cervical diskectomy and fusion. Overall doing well some mild neck pain. The patient does not seek workup for this at this time. As such we will continue to observe. Concern for cervical or thoracic myelopathy Treatment Plan I discussed with the patient my impression, the imaging findings, and treatment plan in detail witha focus on the etiology, natural history, and management of his symptoms. Given patient's signs and symptoms of thoracic or cervical myelopathy, I would like him to obtain acervical and thoracic MRI to evaluate his spinal cord. We will follow-up with him the results of this via phone. Otherwise I would like to see him back at the 5 year thang. Christina Phoenix MD Manager Of Investigations of Orthopaedic Open Hearth Stockyard SupervisorManager Of Investigations of Neurological Surgery [facility] in [place], [place] Manager Of Hospital done by [employer]; therefore, variances and inaccuracies may occur. I reviewed the patient problem list pertinent to the visit today, but the entire patient problem list was not reviewed today. documented in this encounter Plan of Treatment Not on file documented as of this encounter Results * MRI Spine Cervical and Thoracic WO Contrast (03/30/2021 5:18 PM CDT) Anatomical Region Laterality Modality Spine N/A Magnetic Resonan ce 03/31/2021 8:21 AM CDT Impressions 03/31/2021 8:21 AM CDT 1. Postsurgical changes from anterior cervical fusion and discectomy from C5 through C7. The anterior cervical fusion and discectomy at C6-C7 is new from the prior examination. Spinal canal stenosis at the C6-C7 level only longer exists. 2. Mild degenerative changes of the cervical and thoracic spine, worse at C4-C5 and T6-7, as described above in detail. Electronically signed by: Luisito Freedman M.D. Narrative 03/31/2021 8:21 AM CDT EXAMINATION: Magnetic resonance imaging (MRI) of the cervical spine without contrast Magnetic resonance imaging (MRI) of the thoracic spine without contrast HISTORY: Patient is a 50-year-old male with cervical pain. TECHNIQUE: Multiplanar multi-weighted MRI of the cervical and thoracic spine was performed without intravenous contrast using the standard total spine protocol. Contrast information: 0 mL Dotarem COMPARISON: MRI of the cervical spine performed on January 28, 2019 FINDINGS: Mild reversal of the normal cervical lordosis centered at C5 is identified. Postsurgical changes from anterior cervical fusion and discectomy are noted from C5 through C7. A metallic plate extends along the anterior aspects of the C6 and C7 vertebral bodies. This plate is anchored by paired vertebral body screws. The anterior cervical fusion and discectomy at C6-C7 is new from the prior examination. Vertebral bodies at the nonfused levels demonstrate normal signal intensity. No acute fracture is identified; however, if trauma is suspected, a CT scan would be a more sensitive examination for fractures. The craniocervical junction is normal. The visualized portions of the skull base and the posterior fossa are normal. A focal area of myelomalacia is again identified within the right hemicord at the level of C5-C6. Intervertebral disc desiccation and bulging is visible at C3-C4, C4-C5, and C7-T1. No soft tissue abnormality is identified. C2-C3: Minimal symmetric bulging disc. There is no facet arthropathy. There is no uncovertebral joint disease. There is no neuroforaminal stenosis. There is no spinal canal stenosis. C3-C4: ??Mild symmetric bulging disc. There is mild left facet arthropathy. There is mild bilateral uncovertebral joint disease. There is mild bilateral neuroforaminal stenosis. There is no spinal canal stenosis. C4-C5: ??Mild symmetric bulging disc with a superimposed left central disc protrusion. There is mild bilateral, left greater than right, facet arthropathy. There is mild left and moderate pain uncovertebral joint disease. There is mild left and moderate right neuroforaminal stenosis. There is mild to moderate spinal canal stenosis. C5-C6: ??A discectomy has been performed at this level. There is no facet arthropathy. There is mild bilateral uncovertebral joint disease. There is mild bilateral neuroforaminal stenosis. There is mild spinal canal stenosis. C6-C7: ??A discectomy has been performed at this level placement of interbody fusion device. There is no facet arthropathy. There is mild bilateral uncovertebral joint disease. There is mild bilateral neuroforaminal stenosis. There is no spinal canal stenosis. C7-T1: Minimal symmetric bulging disc. There is no facet arthropathy. There is no uncovertebral joint disease. There is no neuroforaminal stenosis. There is no spinal canal stenosis. THORACIC SPINE: The alignment of the thoracic spine is normal. Vertebral bodies demonstrate normal signal intensity on all sequences. There are no compression fractures. The spinal cord demonstrates normal signal intensity on all sequences. The thoracic intervertebral discs are diffusely desiccated. Mild intervertebral disc bulging is present at T2-T3, T3-T4, T6-T7, T10-T11, T11-T12. Mild bilateral facet arthropathy is seen from T6-T7 through T12-L1. Mild right neural foraminal stenosis is noted through T4. No soft tissue abnormality is identified within thorax. The aorta is normal. . T6-T7: Mild symmetric bulging disc with a left subarticular disc protrusion is identified. This disc protrusion deforms the ventral aspect of the spinal cord. The facets are normal. No significant spinal canal or neural foraminal stenosis is detected. Procedure Note Luisito Freedman MD - 03/31/2021 EXAMINATION: Magnetic resonance imaging (MRI) of the cervical spine without contrast Magnetic resonance imaging (MRI) of the thoracic spine without contrast HISTORY: Patient is a 50-year-old male with cervical pain. TECHNIQUE: Multiplanar multi-weighted MRI of the cervical and thoracic spine was performed without intravenous contrast using the standard total spine protocol. Contrast information: 0 mL Dotarem COMPARISON: MRI of the cervical spine performed on January 28, 2019 FINDINGS: Mild reversal of the normal cervical lordosis centered at C5 is identified. Postsurgical changes from anterior cervical fusion and discectomy are noted from C5 through C7. A metallic plate extends along the anterior aspects of the C6 and C7 vertebral bodies. This plate is anchored by paired vertebral body screws. The anterior cervical fusion and discectomy at C6-C7 is new from the prior examination. Vertebral bodies at the nonfused levels demonstrate normal signal intensity. No acute fracture is identified; however, if trauma is suspected, a CT scan would be a more sensitive examination for fractures. The craniocervical junction is normal. The visualized portions of the skull base and the posterior fossa are normal. A focal area of myelomalacia is again identified within the right hemicord at the level of C5-C6. Intervertebral disc desiccation and bulging is visible at C3-C4, C4-C5, and C7-T1. No soft tissue abnormality is identified. C2-C3: Minimal symmetric bulging disc. There is no facet arthropathy. There is no uncovertebral joint disease. There is no neuroforaminal stenosis. There is no spinal canal stenosis. C3-C4: Mild symmetric bulging disc. There is mild left facet arthropathy. There is mild bilateral uncovertebral joint disease. There is mild bilateral neuroforaminal stenosis. There is no spinal canal stenosis. C4-C5: Mild symmetric bulging disc with a superimposed left central disc protrusion. There is mild bilateral, left greater than right, facet arthropathy. There is mild left and moderate pain uncovertebral joint disease. There is mild left and moderate right neuroforaminal stenosis. There is mild to moderate spinal canal stenosis. C5-C6: A discectomy has been performed at this level. There is no facet arthropathy. There is mild bilateral uncovertebral joint disease. There is mild bilateral neuroforaminal stenosis. There is mild spinal canal stenosis. C6-C7: A discectomy has been performed at this level placement of interbody fusion device. There is no facet arthropathy. There is mild bilateral uncovertebral joint disease. There is mild bilateral neuroforaminal stenosis. There is no spinal canal stenosis. C7-T1: Minimal symmetric bulging disc. There is no facet arthropathy. There is no uncovertebral joint disease. There is no neuroforaminal stenosis. There is no spinal canal stenosis. THORACIC SPINE: The alignment of the thoracic spine is normal. Vertebral bodies demonstrate normal signal intensity on all sequences. There are no compression fractures. The spinal cord demonstrates normal signal intensity on all sequences. The thoracic intervertebral discs are diffusely desiccated. Mild intervertebral disc bulging is present at T2-T3, T3-T4, T6-T7, T10-T11, T11-T12. Mild bilateral facet arthropathy is seen from T6-T7 through T12-L1. Mild right neural foraminal stenosis is noted through T4. No soft tissue abnormality is identified within thorax. The aorta is normal. . T6-T7: Mild symmetric bulging disc with a left subarticular disc protrusion is identified. This disc protrusion deforms the ventral aspect of the spinal cord. The facets are normal. No significant spinal canal or neural foraminal stenosis is detected. IMPRESSION: 1. Postsurgical changes from anterior cervical fusion and discectomy from C5 through C7. The anterior cervical fusion and discectomy at C6-C7 is new from the prior examination. Spinal canal stenosis at the C6-C7 level only longer exists. 2. Mild degenerative changes of the cervical and thoracic spine, worse at C4-C5 and T6-7, as described above in detail. Electronically signed by: Luisito Freedman M.D. Christina Phoenix MD [facility] MRI PROCEDURES Final Result * XR Spine Thoracic 2 View (03/13/2021 8:38 AM CDT) Anatomical Region Laterality Modality Spine N/A Computed Radiogr aphy 03/13/2021 8:45 AM CDT Impressions 03/13/2021 8:45 AM CDT 1. ??Mild thoracic dextrocurvature. Electronically signed by: Dom Llamas M.D. Narrative 03/13/2021 8:45 AM CDT EXAMINATION: Thoracic spine 2 views HISTORY: ??Thoracic back pain FINDINGS: 2 views of the thoracic spine are submitted for interpretation. Comparison is made to chest radiographs 06/01/2020. The disc heights in the thoracic spine are normal. There is mild dextrocurvature at T6. No compression fracture is seen. Procedure Note Dom Llamas MD - 03/13/2021 EXAMINATION: Thoracic spine 2 views HISTORY: Thoracic back pain FINDINGS: 2 views of the thoracic spine are submitted for interpretation. Comparison is made to chest radiographs 06/01/2020. The disc heights in the thoracic spine are normal. There is mild dextrocurvature at T6. No compression fracture is seen. IMPRESSION: 1. Mild thoracic dextrocurvature. Electronically signed by: Dom Llamas M.D. Christina Phoenix MD [facility] XR PROCEDURES Final Result * XR Spine Cervical W Flexion And Extension 6 or More Views (03/13/2021 8:04 AM CDT) Anatomical Region Laterality Modality Spine N/A Computed Radiogr aphy 03/13/2021 8:09 AM CDT Impressions 03/13/2021 8:09 AM CDT 1. ??Unchanged anterior cervical discectomy and instrumented fusion from C5 through C7. No motion is seen at the fused segments. Electronically signed by: Dom Llamas M.D. Narrative 03/13/2021 8:09 AM CDT EXAMINATION: Cervical spine 6 or more views HISTORY: ??Cervical spondylosis, fusion FINDINGS: 6 views of the cervical spine are submitted for interpretation. Comparison is made to prior 02/24/2020. There is unchanged anterior cervical discectomy and fusion from C5 through C7, instrumented at C6-C7. With flexion and extension, no motion is seen at the fused segments. The prevertebral soft tissues are normal. On the oblique radiographs, the right-sided neural foramina are not profiled. There is mild neural foraminal stenosis on the left from C5 through C7. The nonfused disc heights are normal. Procedure Note Dom Llamas MD - 03/13/2021 EXAMINATION: Cervical spine 6 or more views HISTORY: Cervical spondylosis, fusion FINDINGS: 6 views of the cervical spine are submitted for interpretation. Comparison is made to prior 02/24/2020. There is unchanged anterior cervical discectomy and fusion from C5 through C7, instrumented at C6-C7. With flexion and extension, no motion is seen at the fused segments. The prevertebral soft tissues are normal. On the oblique radiographs, the right-sided neural foramina are not profiled. There is mild neural foraminal stenosis on the left from C5 through C7. The nonfused disc heights are normal. IMPRESSION: 1. Unchanged anterior cervical discectomy and instrumented fusion from C5 through C7. No motion is seen at the fused segments. Electronically signed by: Dom Llamas M.D. Christina Phoenix MD IMG XR PROCEDURES Final Result documented in this encounter Visit Diagnoses Diagnosis Thoracic spine pain- Primary Pain in thoracic spine Fusion of spine of cervical region Fusion of spine of cervical region Thoracic spine pain Pain in thoracic spine Fusion of spine of cervical region documented in this encounter Care Teams Factory Assembler Relationship Specialty Start Date End Date Jayla Phoenix MD [address] [place], [place] [id number] PCP - General 08/07/17 documented as of this encounter
--- OUTSIDE RECORDS SUMMARY | 2024-08-23 08:04 | XMS_ITS | Encounter Summary ---
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 I thoroughly explained the details of the research study. The patient was able to ask questions at this time. The patient vocalized understanding of the requirements needed to participate in the study. Baseline clinical symptoms were noted andtissue was obtained. documented in this encounter Plan of Treatment Not on file documented as of this encounter Visit Diagnoses Not on filedocumented in this encounter Care Teams Licensed Dispensing Optician Relationship Specialty Start Date End Date Jayla Phoenix MD [address] [place] [address] PCP - General 08/07/17 documented as of this encounter
--- OUTSIDE RECORDS SUMMARY | 2024-08-23 08:04 | XMS_ITS | Encounter Summary ---
Author Organization [facility] Address [address] [place] [address] Care Team Providers Care Electric Hoist Operator Name Role Phone Jayla Phoenix MD Primary Care Provider + [phone] Reason for Referral * Diagnostic Imaging (Routine) - Closed Specialty Diagnoses / Procedures Referred By Elina senior Referred To Contact Radiology Diagnoses 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) Procedures MRI Enterography (abdomen) W WO Contrast Corbin Duque MD [address] [place] [address] Phone: tel: fax: [place] [phone] [place] [phone] Referral ID Status Reason Start Date Expiration Date Visits Re quested Visits Authorized [id number] Closed 09/07/2020 10/07/2021 1 1 OR MARKET INTELLIGENCE CONSULTANT Reason for Visit * Diagnostic Imaging (Routine) - Closed Specialty Diagnoses / Procedures Referred By Elina senior Referred To Contact Radiology Diagnoses 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) Procedures MRI Enterography (abdomen) W WO Contrast Corbin Duque MD [address] [place] [address] Phone: tel: fax: [place] [phone] [place] [phone] Referral ID Status Reason Start Date Expiration Date Visits Re quested Visits Authorized [id number] Closed 09/07/2020 10/07/2021 1 1 Encounter Details Date Type Department Care Team (Latest Contact Info) Description 09/17/2020 8:05 AM SENIOR MARKET INTELLIGENCE CONSULTANT - 09/17/2020 11:59 PM SENIOR MARKET INTELLIGENCE CONSULTANT Hospital Encounter [facility] Imaging [id number] [address] [place] [id number] Corbin Duque MD [address] [place] [address] 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) Discharge Disposition: Discharge to home or [...] file Legal Sex Male 7:18 PM SENIOR MARKET INTELLIGENCE CONSULTANT Gender Identity Male 02/04/2019 10:52 AM CDT Sexual Orientation Straight 02/04/2019 10 :52 AM CDT documented as of this encounter Medications at Time of Discharge cyanocobalamin, vitamin B-12, 5,000 mcg tablet, sublingualIndica tions:Prevention of Vitamin B12 Deficiency Place 1 tablet under the tongue qc scientist before breakfast losartan-hydroch lorothiazide (HYZAAR) 100-25 mg per tabletIndication s:hypertension Take 1 tablet by mouth nightly 02/23/2019 multivitamin capsuleIndicatio ns:Vitamin Deficiency Prevention Take 1 capsule by mouth qc scientist before breakfast ergocalciferol (VITAMIN D) 50,000 unit capsuleIndicatio ns:Vitamin D Deficiency Take 1 capsule (50,000 Units total) by mouth once a week 4 capsule 2 2020 1 acetaminophen 500 mg capsuleIndicatio ns:Pain Take 2 capsules (1,000 mg total) by mouth every 6 (six) hours For pain 120 tablet 04/15/2020 1 cholestyramine-a spartame 4 gram powderIndication s:for bowel resection Take 1 Scoop by mouth 2 (two) times a day 1 Can 2 09/09/2020 1 diphenhydrAMINE (BENADRYL) 25 mg capsuleIndicatio ns:sleep Take 25 mg by mouth nightly as needed for itching 3 docusate sodium (COLACE) 100 mg capsuleIndicatio ns:constipation Take 1 capsule (100 mg total) by mouth 2 (two) times a day as needed for constipation 60 capsule 04/15/2020 1 melatonin 5 mg tabletIndication s:sleep Take 5 mg by mouth nightly as needed 3 oxyCODONE (ROXICODONE) 5 mg immediate release tabletIndication s:Pain Take 1 tablet (5 mg total) by mouth every 6 (six) hours as needed for pain 10 tablet 04/15/2020 1 Stelara injection INJECT 90 MG (1 SYRINGE) UNDER THE SKIN EVERY 8 WEEKS 1 mL 5 06/21/2020 1 tamsulosin (FLOMAX) 0.4 mg extended release capsule Take 1 capsule (0.4 mg total) by mouth nightly 30 capsule 11 09/07/2020 2 documented as of this encounter Discharge Disposition Disposition Code Departure Means Destination Discharge to home or self care documented in this encounter Miscellaneous Notes * Result Encounter Note - Corbin Duque MD - 09/17/2020 11:59 PM SENIOR MARKET INTELLIGENCE CONSULTANT Fibrotic enterocolic fistula noted along with left renal stones and incresed hydronephrosis. Needs to see urology. documented in this encounter Plan of Treatment Not on file documented as of this encounter Procedures Procedure Name Priority Date/Time Associated Diagnosis Comments MRI ABDOMENT ENTEROGRAPHY W WO CONTRAST Schedule Routine, Read Routine (OP Routine) 09/17/2020 10:20 AM SENIOR MARKET INTELLIGENCE CONSULTANT 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) documented in this encounter Results * MRI Enterography (abdomen) W WO Contrast (09/17/2020 10:20 AM SENIOR MARKET INTELLIGENCE CONSULTANT) Anatomical Region Laterality Modality Body N/A Magnetic Resonan ce 09/18/2020 2:54 PM SENIOR MARKET INTELLIGENCE CONSULTANT Impressions 09/18/2020 2:54 PM SENIOR MARKET INTELLIGENCE CONSULTANT 1. ??Enterocolic fistula at the level of [...] CT. Electronically signed by: Sabine Wilson M.D. Narrative 09/18/2020 2:54 PM SENIOR MARKET INTELLIGENCE CONSULTANT EXAMINATION: MAGNETIC RESONANCE IMAGING OF THE ABDOMEN [...] CT. Electronically signed by: Sabine Wilson M.D. Corbin Duque MD IMG MRI PROCEDURES Final Re sult documented in this encounter Visit Diagnoses Diagnosis 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) documented in this encounter Administered Medications Inactive Administered Medications - up to 3 most recent administrations Medication Order MAR Action Action Date Dose Rate Site gadoterate meglumine (DOTAREM) 0.5 mmol/mL injection 20.04 mL 20.04 mL (0.1 mmol/kg ? 100.2 kg), intravenous, Once in imaging, contrast, Starting on 09/17/20 at 0939, For 1 dose, Imaging Protocol Orders Given 09/17/2020 9:39 AM SENIOR MARKET INTELLIGENCE CONSULTANT 20 mL glucagon injection 1 mg 1 mg, intravenous, Administer over 1 Minutes, Once in imaging, low blood sugar, Starting on 09/17/20 at 0939, For 1 dose, Imaging Protocol Orders Given 09/17/2020 9:39 AM SENIOR MARKET INTELLIGENCE CONSULTANT 1 mg documented in this encounter Care Teams Electric Hoist Operator Relationship Specialty Start Date End Date Jayla Phoenix MD [address] [place] [address] PCP - General 08/07/17 documented as of this encounter
--- OUTSIDE RECORDS SUMMARY | 2024-08-23 08:04 | XMS_ITS | Encounter Summary ---
Author Organization [facility] Healthcare Address [address] [place] [address] Care Team Providers Care Pre Algebra Teacher Name Role Phone Jayla Phoenix MD Primary Care Provider Encounter Details Date Type Department Care Team (Late st Contact Info) Description 12/16/2020 Telephone [facility] Imaging [id number] [place] [address] Clari West, RT Social History Tobacco Use Types Packs/Day Years Used Date Smoking Tobacco: Former Cigarettes 1.5 9 1 994 - 2002 Smokeless Tobacco: Never Alcohol Use Standard Drinks/Week Comments Not Currently 0 (1 standard drink = 0.6 oz pur e alcohol) Sex and Gender Information Value Date Recorded Sex Assigned at Not on file 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
--- OUTSIDE RECORDS SUMMARY | 2024-08-23 08:04 | XMS_ITS | Encounter Summary ---
Author Organization [facility] Address [address] [place] [address] Phone Care Team Providers Care Bindery Assistant Name Role Phone Jayla Phoenix MD Primary Care Provider [phone] Encounter Details Date Type Department Care Team (Late st Contact Info) Description 11/21/2020 Orders Only [facility] Gastroenterology [address] [facility] Advanced Medicine 8th [place] [address] [place] [address] Corbin Duque MD [address] [place] [address] 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) Social History Tobacco Use Types Packs/Day Years Used Date Smoking Tobacco: Former Cigarettes 1.5 9 1 994 - 2003 Smokeless Tobacco: Never Alcohol Use Standard Drinks/Week Comments Not Currently 0 (1 standard drink = 0.6 oz pur e alcohol) Sex and Gender Information Value Date Recorded Sex Assigned at Not on file 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 Gender Identity Male 02/04/2019 10:52 AM CDT Sexual Orientation Straight 02/04/2019 10 :52 AM CDT documented as of this encounter Ordered Prescriptions Prescription Sig Dispense Quantity Refills Last Filled Start Date End Date cholecalciferol (VITAMIN D-3) 90339 unit tabletIndications: 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) Take 1 tablet (50,000 Units total) by mouth once a week 4 tablet 3 11/21/2020 03/13/2021 documented in this encounter Progress Notes * Bart Armendariz CMA - 11/21/2020 9:17 AM CDT Refill of vitamin D documented in this encounter Plan of Treatment Not on file documented as of this encounter Visit Diagnoses Diagnosis 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) documented in this encounter Discontinued Medications Medication Sig Discontinue Reason Start Date End Da te cholecalciferol (VITAMIN D-3) 69120 unit tabletIndications:Crohn' s disease of both small and large intestine with fistula (HCC) Take 1 tablet (50,000 Units total) by mouth once a week Reorder 10/27/2020 11/21/2020 documented as of this encounter Care Teams Bindery Assistant Relationship Specialty Start Date End Date Jayla Phoenix MD [address] [place] [address] PCP - General 08/07/17 documented as of this encounter
--- OUTSIDE RECORDS SUMMARY | 2024-08-23 08:04 | XMS_ITS | Encounter Summary ---
Author Organization [facility] Address [address] [place] [address] Phone Care Team Providers Care Service Department Manager Name Role Phone Jayla Phoenix MD Primary Care Provider [phone] Reason for Visit * Reason Onset Date Comments Lab Results 10/24/2020 Encounter Details Date Type Department Care Team (Late st Contact Info) Description 10/24/2020 Documentation [facility] Gastroenterology [address] [facility] Medicine 8th [place] [address] Michelle Hazel curriculum and instruction specialist Results Social History Tobacco Use Types Packs/Day Years Used Date Smoking Tobacco: Former Cigarettes 1.5 9 1 994 - 2002 Smokeless Tobacco: Never Alcohol Use Standard Drinks/Week Comments Not Currently 0 (1 standard drink = 0.6 oz pur e alcohol) Sex and Gender Information Value Date Recorded Sex Assigned at Not on file 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 N RELATIONS PROFESSOR documented in this encounter Plan of Treatment Not on file documented as of this encounter Visit Diagnoses Not on filedocumented in this encounter Care Teams Service Department Manager Relationship Specialty Start Date End Date Jayla Phoenix MD [address] [place] [address] PCP - General 08/07/17 documented as of this encounter
--- OUTSIDE RECORDS SUMMARY | 2024-08-23 08:04 | XMS_ITS | Encounter Summary ---
Author Organization [facility] Address [address] [place] [address] Phone Care Team Providers Care Medical Billing Representative Name Role Phone Jayla Phoenix MD Primary Care Provider [phone] Reason for Referral * Diagnostic Imaging (Routine) - Closed Specialty Diagnoses / Procedures Referred By Contjaycee t Referred To Contact Diagnoses Nephrolithiasis Procedures US Kidney Complete Hipolito Reyes MD Phone: tel: fax: [address] [address] Referral ID Status Reason Start Date Expiration Date Visits Re quested Visits Authorized [id number] Closed 11/07/2020 12/07/2021 1 1 Encounter Details Date Type Department Care Team (Late st Contact Info) Description 11/07/2020 Orders Only [facility] Urology [address] [facility] [address] [place] [address] Hipolito Reyes MD [address] [place] [address] Nephrolithiasis (Primary Dx) Social History Tobacco Use Types Packs/Day Years Used Date Smoking Tobacco: Former Cigarettes 1.5 9 1 994 - 2002 Smokeless Tobacco: Never Alcohol Use Standard Drinks/Week Comments Not Currently 0 (1 standard drink = 0.6 oz pur e alcohol) Sex and Gender Information Value Date Recorded Sex Assigned at Not on file 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 No new stones. Dictated by: Mikey Florence The radiology attending physician has personally reviewed this study, and had reviewed and/or edited this written report and agrees with it. Electronically signed by: Brandon Cabezas M.D. Narrative 12/19/2020 10:06 AM CDT EXAMINATION: COMPLETE RENAL SONOGRAM HISTORY: ??Follow-up for renal stones. COMPARISON: ??06/01/2020 FINDINGS: ?? Kidneys: The echogenicity of both kidneys is normal. The kidneys are normal in size. ??The right kidney measures 11.2 cm in length, and the left, 11.8 cm in length. There is no hydronephrosis in either kidney. There is a 1.0 cm right upper pole renal stone, unchanged. 1.3 cm nonobstructing lower pole left renal stone is also unchanged. Left lower pole milk of calcium cyst is stable. Bladder: The urinary bladder is normal Procedure Note Brandon Cabezas MD - 12/19/2020 EXAMINATION: COMPLETE RENAL SONOGRAM HISTORY: Follow-up for renal stones. COMPARISON: 06/01/2020 FINDINGS: Kidneys: The echogenicity of both kidneys is normal. The kidneys are normal in size. The right kidney measures 11.2 cm in length, and the left, 11.8 cm in length. There is no hydronephrosis in either kidney. There is a 1.0 cm right upper pole renal stone, unchanged. 1.3 cm nonobstructing lower pole left renal stone is also unchanged. Left lower pole milk of calcium cyst is stable. Bladder: The urinary bladder is normal IMPRESSION: Stable nonobstructing right upper and left lower renal stones. No new stones. Dictated by: Mikey Florence The radiology attending physician has personally reviewed this study, and had reviewed and/or edited this written report and agrees with it. Electronically signed by: Brandon Cabezas M.D. [facility] Libia Reyes MD IMG US PROCEDURES F inal Result documented in this encounter Visit Diagnoses Diagnosis Nephrolithiasis- Primary Calculus of kidney Nephrolithiasis Calculus of kidney documented in this encounter Care Teams Medical Billing Representative Relationship Specialty Start Date End Date Jayla Phoenix MD [address] [place] [address] PCP - General 08/07/17 documented as of this encounter
--- OUTSIDE RECORDS SUMMARY | 2024-08-23 08:04 | XMS_ITS | Encounter Summary ---
Author Organization 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 Gender Identity Male 02/04/2019 10:52 AM CDT Sexual Orientation Straight 02/04/2019 10 :52 AM CDT documented as of this encounter Plan of Treatment Not on file documented as of this encounter Procedures Procedure Name Priority Date/Time Associated Diagnosis Comments SCAN - LABS 04/22/2021 documented in this encounter Results * SCAN - LABS (04/22/2021) us Provider Scanning Final Result documented in this encounter Visit Diagnoses Not on filedocumented in this encounter Care Teams Resolution Manager Relationship Specialty Start Date End Date Jayla Phoenix MD [address] [place] [address] PCP - General 08/07/17 documented as of this encounter
--- OUTSIDE RECORDS SUMMARY | 2024-08-23 08:04 | XMS_ITS | Encounter Summary ---
Author Organization [facility] Address [address] [place] [address] Phone Care Team Providers Care Construction Driver Name Role Phone Jayla Phoenix MD Primary Care Provider [phone] Encounter Details Date Type Department Care Team (Late st Contact Info) Description 2020 Orders Only [facility] Gastroenterology [address] [facility] Advanced Medicine 8th [place] [address] [place] [address] Corbin Duque MD [address] [place] [address] Crohn's disease of both small and large intestine with complication (CMS/HCC); Crohn's disease of both small and large [...] on file 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 Gender Identity Male 02/04/2019 10:52 AM CDT Sexual Orientation Straight 02/04/2019 10 :52 AM CDT documented as of this encounter Ordered Prescriptions Prescription Sig Dispense Quantity Refills Last Filled Start Date End Date ergocalciferol (VITAMIN D) 50,000 unit capsuleIndications :Vitamin D Deficiency Take 1 capsule (50,000 Units total) by mouth once a week 4 capsule 2 2020 1 cholestyramine-asp artame 4 gram powderIndications: for bowel resection Take 1 Scoop by mouth 2 (two) times a day 1 Can 2 2020 1 documented in this encounter Plan of Treatment Not on file documented as of this encounter Visit Diagnoses Diagnosis Crohn's disease of both small and large intestine with complication (HCC) 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) documented in this encounter Discontinued Medications Medication Sig Discontinue Reason Start Date End Da te ustekinumab (STELARA) 130 mg/26 mL solutionIndications:Bus Driver hn's Disease Infuse 104 mL (520 mg total) into a venous catheter once for 1 dose 04/07/2020 2020 cholestyramine-aspartam e 4 gram powderIndications:for bowel resection Take 1 Scoop by mouth 2 (two) times a day Reorder 03/10/2020 2020 ergocalciferol (VITAMIN D) 50,000 unit capsuleIndications:Sadie min D Deficiency Take 1 capsule (50,000 Units total) by mouth once a week Reorder 05/02/2020 2020 documented as of this encounter Care Teams Construction Driver Relationship Specialty Start Date End Date Jayla Phoenix MD [address] [place] [address] PCP - General 08/07/17 documented as of this encounter
--- OUTSIDE RECORDS SUMMARY | 2024-08-23 08:04 | XMS_ITS | Encounter Summary ---
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); High risk medications (not anticoagulants) long-term use; Transaminitis Discharge Disposition: Discharge to home or self [...] on file Legal Sex Male 7:18 PM METAL GRADER Gender Identity Male 02/04/2019 10:52 AM CDT Sexual Orientation Straight 02/04/2019 10 :52 AM CDT documented as of this encounter Discharge Disposition Disposition Code Departure Means Destination Discharge to home or self care documented in this encounter Plan of Treatment Not on file documented as of this encounter Procedures Procedure Name Priority Date/Time Associated Diagnosis Comments EGFR Routine 09/07/2020 2:06 PM METAL GRADER 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) High risk medications (not anticoagulants) long-term use DIFFERENTIAL AUTO Routine 09/07/2020 2:0 6 PM METAL GRADER 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) High risk medications (not anticoagulants) long-term use THYROID FUNCTION CASCADE Routine 09/07/2020 2:06 PM METAL GRADER 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) High risk medications (not anticoagulants) long-term use CBC WITH AUTO DIFFERENTIAL Routine 09/07/2020 2:06 PM METAL GRADER 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) High risk medications (not anticoagulants) long-term use CRP (ACUTE PHASE) Routine 09/07/2020 2:0 6 PM METAL GRADER 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) High risk medications (not anticoagulants) long-term use VITAMIN B12 Routine 09/07/2020 2:06 PM METAL GRADER 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) High risk medications (not anticoagulants) long-term use BILIRUBIN, DIRECT Routine 09/07/2020 2:0 6 PM METAL GRADER 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 60 - 89 mL/min/1.73m2 Mildly to moderately decreased ?45 - 59 mL/min/1.73m2 Moderately to severely decreased ??30 - 44 mL/min/1.73m2 Severely decreased ?15 - 29 mL/min/1.73m2 Kidney Failure ?< 15 ??mL/min/1.73m2 *Relative to young adult level Estimated glomerular filtration rate is determined by the CKD-EPI equation recommended by the National Kidney Foundation (KDIGO 2012 Clinical Practice Guideline for the Evaluation and Management of Chronic Kidney Disease. Kidney Intnl Suppl Aug 2012;3:1). The CKD-EPI equation should not be used for patients with unstable renal function and has not been validated in children and those over 70. Current interpretive data was last reviewed 2020 Blood specimen (specimen) 09/07/2020 2:06 PM METAL GRADER 09/07/2020 2:20 PM METAL GRADER Corbin Duque MD LAB BLOOD ORDERABLES Final Result Performing Organization Address [facility] de Phone Number RYAN Space [facility]encil[facility] [address] [address]. [place] [address] * Bilirubin, direct (09/07/2020 2:06 PM METAL GRADER) Bilirubin, direct <0.2 0.1 - 0.3 mg/dL RYAN SEN Blood specimen (specimen) 09/07/2020 2:06 PM METAL GRADER 09/07/2020 2:20 PM METAL GRADER Corbin Duque MD LAB BLOOD ORDERABLES Edited Result - Final Performing Organization Address [facility] de Phone Number RYAN Space [facility] [address] [facility]. Department [place] [address] * Differential, auto (09/07/2020 2:06 PM METAL GRADER) Neutrophil abs 3.5 1.7 - 6.5 K/cumm CERNER [facility] Imm gran abs 0.0 0.0 - 0.1 K/cumm C[facility]ER [facility] Lymphocyte abs 1.9 0.8 - 3.3 K/cumm [facility]ER [facility] Monocyte abs 0.5 0.2 - 0.8 K/cumm [facility] Eosinophil abs 0.1 0.0 - 0.5 K/cumm [facility]ER [facility] Basophil abs 0.1 0.0 - 0.1 K/cumm [facility]ER [facility] Neutrophil pct 57.7 % C[facility]ER [facility] Comment: Interpretive Data Percent cell count reference ranges are not reported, since discordance with absolute values may lead to misinterpretation of CBC data. Current Interpretive Data was last revised on 2017. Imm gran pct 0.3 % C[facility]ER [facility] Comment: Interpretive Data Percent cell count reference ranges are not reported, since discordance with absolute values may lead to misinterpretation of CBC data. Current Interpretive Data was last revised on 2017. Lymphocyte pct 31.2 % [facility]ER [facility] Comment: Interpretive Data Percent cell count reference ranges are not reported, since discordance with absolute values may lead to misinterpretation of CBC data. Current Interpretive Data was last revised on 2017. Monocyte pct 8.7 % [facility]ER [facility] Comment: Interpretive Data Percent cell count reference ranges are not reported, since discordance with absolute values may lead to misinterpretation of CBC data. Current Interpretive Data was last revised on 2017. Eosinophil pct 1.1 % [facility]ER [facility] Comment: Interpretive Data Percent cell count reference ranges are not reported, since discordance with absolute values may lead to misinterpretation of CBC data. Current Interpretive Data was last revised on 2017. Basophil pct 1.0 % [facility]ER [facility] Comment: Interpretive Data Percent cell count reference ranges are not reported, since discordance with absolute values may lead to misinterpretation of CBC data. Current Interpretive Data was last revised on 2017. Blood specimen (specimen) 09/07/2020 2:06 PM METAL GRADER 09/07/2020 2:20 PM METAL GRADER Corbin Duque MD LAB BLOOD ORDERABLES Final Result Performing Organization Address [facility]/ZIP Co de Phone Number RYAN CARDENASCH [address] [address] [employer] [facility] [place] [address] * (ABNORMAL) Vitamin B12 (09/07/2020 2:06 PM METAL GRADER) Vitamin B12 1,978(H) 230 - 1,250 pg/mL [facility] Comment:Testing performed by : [facility], [facility], [place]., [address] Blood specimen (specimen) 09/07/2020 2:06 PM METAL GRADER 09/07/2020 5:07 PM METAL GRADER Corbin Duque MD LAB BLOOD ORDERABLES Final Result Performing Organization Address [facility] Co de Phone Number ALIZELARUEN BJWCH [address] [address]. [place] [address] * TSH reflex to free T4 (09/07/2020 2:06 PM METAL GRADER) Pathologist [facility] TSH 1.30 0.30 - 4.20 mcIUnit/mL RYAN BILLY Blood specimen (specimen) 09/07/2020 2:06 PM METAL GRADER 09/07/2020 2:20 PM METAL GRADER Corbin Duque MD LAB BLOOD ORDERABLES Edited Result - Final Performing Organization Address [facility]/ZIP Co de Phone Number RYAN CARDENASCH [address] [address]. [facility] [place] [address] * CBC with auto differential (09/07/2020 2:06 PM METAL GRADER) WBC 6.1 3.8 - 9.9 K/cumm [facility] Hgb 14.3 13.0 - 17.5 g/dL [facility] Hct 42.2 38.9 - 50.3 % [facility] Plt 317 150 - 400 K/cumm [facility] MPV 9.2 9.1 - 12.3 fL [facility] RBC 4.87 4.30 - 5.80 M/cumm [facility] MCV 86.7 81.3 - 96.4 fL [facility] MCH 29.4 27.1 - 33.3 pg [facility] MCHC 33.9 32.3 - 35.7 g/dL [facility] RDW CV 13.2 11.1 - 14.9 % [facility] RDW SD 42.1 35.7 - 48.1 fL [facility] NRBC abs 0.00 0.00 - 0.01 K/cumm [facility] Blood specimen (specimen) 09/07/2020 2:06 PM METAL GRADER 09/07/2020 2:20 PM METAL GRADER Corbin Duque MD LAB BLOOD ORDERABLES Final Result Performing Organization Address City/[facility]/ZIP Co de Phone Number [facility] [address] [address] [place] [address] * CRP (acute phase) (09/07/2020 2:06 PM METAL GRADER) Pathologist [facility] CRP 1.9 <=10.0 mg/L [facility] Blood specimen (specimen) 09/07/2020 2:06 PM METAL GRADER 09/07/2020 2:20 PM METAL GRADER Corbin Duque MD LAB BLOOD ORDERABLES Edited Result - Final Performing Organization Address City/[facility]/ZIP Co de Phone Number [facility] [address] [employer] [place], [place] [id number] * Comprehensive metabolic panel (09/07/2020 2:06 PM METAL GRADER) Sodium 138 135 - 145 mmol/L CERNER [...] [facility] Blood specimen (specimen) 09/07/2020 2:06 PM METAL GRADER 09/07/2020 2:20 PM METAL GRADER us Corbin Duque MD LAB BLOOD ORDERABLES Edited Result - Final RYAN SEN [address] [address] [facility]. Department [place] [address] documented in this encounter Visit Diagnoses Diagnosis 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) High risk medications (not anticoagulants) long-term use Encounter for long-term (current) use of other medications Transaminitis Nonspecific elevation of levels of transaminase or lactic acid dehydrogenase (LDH) documented in this encounter Care Teams Temperature Inspector Relationship Specialty Start Date End Date Jayla Phoenix MD [address] [place] [address] PCP - General 08/07/17 documented as of this encounter
--- OUTSIDE RECORDS SUMMARY | 2024-08-23 08:04 | XMS_ITS | Encounter Summary ---
Author Organization [facility] Healthcare Address [address] [place] [address] Care Team Providers Care Coating Technician Name Role Phone Jayla Phoenix MD Primary Care Provider [phone] Reason for Referral * Diagnostic Imaging (Routine) - Closed Specialty Diagnoses / Procedures [facility]erred To Contact Diagnoses Thoracic spine pain Procedures XR Spine Thoracic 2 View Christina Phoenix MD Phone: tel: fax: [facility] Referral ID Status Reason Start Date Expiration Date Visits Re quested Visits Authorized [id number] Closed 03/13/2021 04/12/2022 1 1 * Diagnostic Imaging (Routine) - Closed Specialty Diagnoses / Procedures Referred By Contac t Referred To Contact Diagnoses Fusion of spine of cervical region Procedures XR Spine Cervical W Flexion And Extension 6 or More Views Christina Phoenix MD Phone: tel: fax: [facility] Referral ID Status Reason Start Date Expiration Date Visits Re quested Visits Authorized [id number] Closed 03/07/2021 04/06/2022 1 1 Reason for Visit * Diagnostic Imaging (Routine) - Closed Specialty Diagnoses / Procedures Referred By Contac t Referred To Contact Diagnoses Fusion of spine of cervical region Procedures XR Spine Cervical W Flexion And Extension 6 or More Views Christina Phoenix MD Phone: tel: fax: [facility] Referral ID Status Reason Start Date Expiration Date Visits Re quested Visits Authorized [id number] Closed 03/07/2021 04/06/2022 1 1 Encounter Details Date Type Department Care Team (Latest Contact Info) Description 03/13/2021 7:56 AM CDT - 03/13/2021 11:59 PM CDT Hospital Encounter [facility] [address] [place] [address] Christina Phoenix MD [address] [address] Fusion of spine of cervical region; Thoracic spine pain Discharge Disposition: Discharge to home or self [...] on file Legal Sex Male 7:18 PM MECHANIC GENERAL OPERATIONAL TEST Gender Identity Male 02/04/2019 10:52 AM CDT Sexual Orientation Straight 02/04/2019 10 :52 AM CDT documented as of this encounter Medications at Time of Discharge cyanocobalamin, vitamin B-12, 5,000 mcg tablet, sublingualIndica tions:Prevention of Vitamin B12 Deficiency [address] 1 tablet under the tongue drawing kiln operator before breakfast losartan-hydroch lorothiazide (HYZAAR) 100-25 mg per tabletIndication s:hypertension Take 1 tablet by mouth nightly 02/23/2019 multivitamin capsuleIndicatio ns:Vitamin Deficiency Prevention Take 1 capsule by mouth drawing kiln operator before breakfast cholestyramine-a spartame 4 gram powderIndication s:for bowel [...] Name Priority Date/Time Associated Diagnosis Comments XR SPINE THORACIC 2 VIEWS Schedule Routine, Read Routine (OP Routine) 03/13/2021 8:38 AM CDT Thoracic spine pain XR SPINE CERVICAL W FLEXION AND EXTENSION 6 OR MORE VIEWS Schedule Routine, Read Routine (OP Routine) 03/13/2021 8:04 AM CDT Fusion of spine of cervical region documented in this encounter Results * XR Spine Thoracic 2 View (03/13/2021 [...] dextrocurvature. Electronically signed by: Dom Llamas M.D. us Christina Phoenix MD IMG XR PROCEDURES Final Result * XR Spine [...] documented in this encounter Visit Diagnoses Diagnosis Fusion of spine of cervical region Thoracic spine pain Pain in thoracic spine documented in this encounter Care Teams Coating Technician Relationship Specialty Start Date End Date Jayla Phoenix MD [address] [place] [address] PCP - General 08/07/17 documented as of this encounter
--- OUTSIDE RECORDS SUMMARY | 2024-08-23 08:04 | XMS_ITS | Encounter Summary ---
Author Organization [facility] Address [address] [place] [address] Phone Care Team Providers Care Steel Sash Erector Name Role Phone Jayla Phoenix MD Primary Care Provider [phone] Reason for Referral * Diagnostic Imaging (Routine) - Closed Specialty Diagnoses / Procedures Referred By Elina t Referred To Contact Diagnoses Bilateral nephrolithiasis Procedures US Kidney Complete Hipolito Reyes MD Phone: tel: fax: [address] [address] Referral ID Status Reason Start Date Expiration Date Visits Re quested Visits Authorized [id number] Closed 12/21/2020 01/20/2022 1 1 Reason for Visit * Reason Comments Nephrolithiasis * Consultation (Routine) - Closed Specialty Diagnoses / Procedures Referred By Contac t Referred To Contact Urology Diagnoses Kidney stone on left side Hydronephrosis with ureteropelvic junction (UPJ) obstruction Corbin Duque MD [address] [place] [address] Phone: tel: fax: [facility] (All Locations) Referral ID Status Reason Start Date Expiration Date V isits Requested Visits Authorized [id number] Closed Specialty Services Required 03/02/2020 09/11/2021 99 99 Encounter Details Date Type Department Care Team (Late st Contact Info) Description 12/21/2020 2:40 PM CDT Office Visit [facility] Urology [address] [facility] Medical Office Building [address] [place] [address] Hipolito Reyes MD [address] [place] [address] Bilateral nephrolithiasis (Primary Dx); Hyperoxaluria Social History Tobacco Use Types Packs/Day Years Used Date Smoking Tobacco: Former Cigarettes 1.5 9 1 - 2002 Smokeless Tobacco: Never Alcohol Use Standard Drinks/Week Comments Not Currently 0 (1 standard drink = 0.6 oz pur e alcohol) Sex and Gender Information Value Date Recorded Sex Assigned at Not on file 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 documented in this encounter Progress Notes * Hipolito Reyes MD - 12/21/2020 2:40 PM CDT Chief Complaint: Chief Complaint Patient presents with ??? Nephrolithiasis History of Present Illness: Kristian Vasques is a 50 y.o. male with nephrolithiasis s/p L PCNL in 2019 (100% COM stone). He hada recent MRI that suggested hydronephrosis, although no new stone symptoms. Ultrasound shows a stable 1.3 cm stone on the left and a 1.0 cm stone on the right. Ultrasound has suggested the left hydronephrosis to be a renal cyst that has been present. The patient's past medical, surgical, medication, allergy, [...] Sig Dispense Refill ??? cholecalciferol (VITAMIN D-3) 29408 unit tablet Take 1 tablet (50,000 Units total) by mouth once a week 4 tablet 3 ??? cholestyramine-aspartame 4 gram powder Take 1 Scoop by mouth 2 (two) times a day 1 Can 2 ??? cyanocobalamin, vitamin B-12, 5,000 mcg tablet, sublingual Place 1 tablet under the tongue internet sales representative before breakfast ??? diphenhydrAMINE (BENADRYL) 25 mg capsule Take 25 mg by mouth nightly as needed for itching ??? losartan-hydrochlorothiazide (HYZAAR) 100-25 mg per tablet Take 1 tablet by mouth nightly ??? melatonin 5 mg tablet Take 5 mg by mouth nightly as needed ??? multivitamin capsule Take 1 capsule by mouth internet sales representative before breakfast ??? Stelara injection INJECT 90 [...] Abused: ??? Physically Abused: ??? Sexually Abused: Review of systems was performed, and all others negative except as per scanned form. Below is a selected list of pertinent data to this encounter. : nephrolithiasis Objective: Physical Exam There were no vitals filed for this visit. Gen: NAD Neuro: Alert, conversation appropriate Skin: No rashes or lesions of exposed skin Head: normocephalic Eyes: no strabismus Neck: trachea midline. Pulm: respirations non-labored CV: extremities and mucous membranes pink MSK: ambulates without assistance The following lab results were personally reviewed by me: Lab Results Component Value Date CREATININE 1.13 12/21/2020 No results found for: PSA The following images were personally reviewed by me. US Kidney Complete Narrative: EXAMINATION: COMPLETE RENAL SONOGRAM HISTORY: Follow-up for [...] stable. Bladder: The urinary bladder is normal Impression: Stable nonobstructing right upper and left lower renal stones. No new stones. Dictated by: Mikey Florence The radiology attending physician has personally reviewed this study, and had reviewed and/or edited this written report and agrees with it. Electronically signed by: Brandon Cabezas M.D. US Kidney Complete Result Date: 12/19/2020 Stable nonobstructing right upper and left lower renal stones. No new stones. Dictated by: Mikey Florence The radiology attending physician has personally reviewed this study, and had reviewed and/or edited this written report and agrees with it. Electronically signed by: Brandon Cabezas M.D. Orders: Orders Placed This Encounter ??? US Kidney Complete Standing Status: Future Standing Expiration Date: 06/23/2022 Order Specific Question: Where should this order be performed? Answer: [facility] [[id number]] Assessment: Kristian Vasques is a 50 y.o. male with nephrolithiasis. Plan: Continue surveillance of stones. If stones get > 2 cm then will need to re-intervene. F/U 1 year with renal ultrasound. He will continue citracal for hyperoxaluria, and we will get a Litholink prior to the next visit toupdate stone risk factors. Thank you for allowing us to participate in the care of this patient. Please do not hesitate to contact us should you have any questions or concerns at [phone]. documented in this encounter Plan of Treatment [...] by: Angel Arredondo M.D. Hipolito Reyes MD IM US PROCEDURES F inal Result documented in this encounter Visit Diagnoses Diagnosis Bilateral nephrolithiasis- Primary Hyperoxaluria Other specified disorders of carbohydrate transport and metabolism Bilateral nephrolithiasis documented in this encounter Care Teams Steel Sash Erector Relationship Specialty Start Date End Date Jayla Phoenix MD [address] [place] [id number] PCP - General 08/07/17 documented as of this encounter
--- OUTSIDE RECORDS SUMMARY | 2024-08-23 08:04 | XMS_ITS | Encounter Summary ---
Author Organization [facility] Address [address] [place] [address] Phone Care Team Providers Care Rn Labor Delivery Name Role Phone Jayla Phoenix MD Primary Care Provider [phone] Encounter Details Date Type Department Care Team (Late st Contact Info) Description 10/27/2020 Orders Only [facility] Gastroenterology [address] [facility] Advanced [facility] 8th [place] [address] [place] [address] Corbin Duque MD [address] [place] [address] High risk medications (not anticoagulants) long-term use; [...] on file Legal Sex Male 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 Gender Identity Male 02/04/2019 10:52 AM CDT Sexual Orientation Straight 02/04/2019 10 :52 AM CDT documented as of this encounter Ordered Prescriptions Prescription Sig Dispense Quantity Refills Last Filled Start Date End Date cholecalciferol (VITAMIN D-3) 02343 unit tabletIndications: 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) Take 1 tablet (50,000 Units total) by mouth once a week 4 tablet 1 10/27/2020 11/21/2020 documented in this encounter Progress Notes * Bart Armendariz CMA - 10/27/2020 8:39 AM CST Refill Vitamin d ITY WORKER documented in this encounter Plan of Treatment Not on file documented as of this encounter Visit Diagnoses Diagnosis High risk medications (not anticoagulants) long-term use Encounter for long-term (current) use of other medications 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) documented in this encounter Care Teams Rn Labor Delivery Relationship Specialty Start Date End Date Jayla Phoenix MD [address] [place] [address] PCP - General 08/07/17 documented as of this encounter
--- OUTSIDE RECORDS SUMMARY | 2024-08-23 08:04 | XMS_ITS | Encounter Summary ---
Author Organization [facility] Address [address] [place] [address] Phone Care Team Providers Care Movement Assembly Final Inspector Name Role Phone Jayla Phoenix MD Primary Care Provider [phone] Encounter Details Date Type Department Care Team (Late st Contact Info) Description 2020 Documentation [facility] [address] [facility] Medicine 8th [place] [address] [place] [address] Michelle Hazel RN Social History Tobacco Use Types Packs/Day Years Used Date Smoking Tobacco: Former Cigarettes 1.5 9 1 994 - 2003 Smokeless Tobacco: Never Alcohol Use Standard Drinks/Week Comments Not Currently 0 (1 standard drink = 0.6 oz pur e alcohol) Sex and Gender Information Value Date Recorded Sex Assigned at Not on file 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 Gender Identity Male 02/04/2019 10:52 AM CDT Sexual Orientation Straight 02/04/2019 10 :52 AM CDT documented as of this encounter Progress Notes * Michelle Hazel RN - 2020 7:02 PM CST Labs from [facility] in [place] on 06/29/20 showed stable CBC and CRP, Creat 1.32, ALT 74,vitamin D still 23 GER WATER documented in this encounter Plan of Treatment Not on file documented as of this encounter Visit Diagnoses Not on filedocumented in this encounter Care Teams Movement Assembly Final Inspector Relationship Specialty Start Date End Date Jayla Phoenix MD [address] [place] [address] PCP - General 08/07/17 documented as of this encounter
--- OUTSIDE RECORDS SUMMARY | 2024-08-23 08:04 | XMS_ITS | Encounter Summary ---
Author Organization [facility] Address [address] [place] [address] Care Team Providers Care Rn Ostomy Name Role Phone Jayla Phoenix MD Primary Care Provider [phone] Encounter Details Date Type Department Care Team ([facility] st Contact Info) Description 02/06/2021 9:38 AM CDT Anesthesia Event [facility] [place] [address] [facility] [address] [place] [address] Bob Boucher MD [address] [place] [address] Frannie Sidhu CRNA [address] [place] [address] Anesthesia Record Procedure Summary Procedure Name Responsible Anesthesiologist Anesthesia Start Time Anesthesia Stop Time COLON BIOPSY (Colon) Bob Boucher MD 02/06/21 0938 02/06/21 1039 Events Date Time Event Comment 02/06/2021 0938 An Start 0938 Start Supplemental O2 0938 In Room 0941 An Start Data 0942 An Start Data 0946 Proc Start 1029 Proc Fin 1035 Out of Room 1036 an stop data 1039 Handoff to RN I completed my handoff [...] Patient disposition at the time of handoff: PACU 1039 An Stop 1056 Release from care Meds Name Total lidocaine (cardiac) syringe 2 % 100 mg propofol 608.35 mg sodium chloride 0.9% infusion 700 mL * Agents Name O2% N2O O2 * Blood No blood administrations on file. Lines, Drains, and Airways Type Details Placement Removal Ureteral Drain/Stent 04/12/20; 1500; Lef t ureter; 5 Fr.; No 04/12/20 1500 by Nataliia Bone RN Nephrostomy 04/14/20; 1210; Left ; 8.5 Fr.; Yes 04/14/20 1210 by Nazanin Doyle RNFA Peripheral IV Placement Date: 02/06/21; Placement Time: 830; Catheter Size: 20 G; Orientation: Right; Location: Hand; Site Prep: Chlorhexidine; Inserted by: phyllis aburto rn; Insertion Attempts: 1 02/06/21 0831 by Phyllis Rosen RN RETIRED Surgical Site 04/16/20; 0822; No ; Left; Back; left nephrostomy tube; 07/21/24 (Retired LDA, Removed/Completed by Yerdle with LDA Utility); 1213 (Retired LDA, Removed/Completed by Yerdle with LDA Utility) 04/16/20 0822 by Ernestine Graham RN 07/21/24 1213 by Discharge Provider, Automatic documented in this encounter Social History Tobacco [...] on file 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 Gender Identity Male 02/04/2019 10:52 AM CDT Sexual Orientation Straight 02/04/2019 10 :52 AM CDT documented as of this encounter OR Notes * Anesthesia Postprocedure Evaluation - Velma Montero MLT - 02/06/2021 10:56 AM CDT Patient: Kristian Vasques Procedure Summary Date: 02/06/21 Room / Location: [facility] ROOM 3 / [facility] Anesthesia Start: 937 Anesthesia Stop: 1038 Procedure: COLON BIOPSY (N/A Colon) Diagnosis: Crohn's disease of small and large intestines with complication (CMS/HCC) (Crohn's disease of small and large intestines with complication (CMS/HCC) [K50.819]) Providers: Corbin Duque MD Responsible Provider: Bob Boucher MD Anesthesia Type: MAC ASA Status: 3 Anesthesia Type: MAC Last vitals BP 103/74 (BP Location: Left arm, Patient Position: Lying) Pulse 80 Temp 36.4 ??C (97.5 ??F) (Temporal) Resp 17 SpO2 96% Anesthesia Post Evaluation Patient location during evaluation: PACU Patient participation: complete - patient participated Level of consciousness: fully awake Pain score: 0 Pain management: adequate Airway patency: adequate Evidence of recall: no Cardiovascular status: acceptable and hemodynamically stable Respiratory status: acceptable and room air Hydration status: acceptable Pt is: normothermic Nausea/Vomiting status: none No complications documented. Cosigned by Bob Boucher MD at 02/06/2021 3:25 PM CDT * Anesthesia Preprocedure Evaluation - Velma Montero MLT - 02/06/2021 8:43 AM CDT Images from the original note were not included. Anesthesia Evaluation Kristian Vasques is a 50 y.o. male Procedure(s): COLONOSCOPY with chromo Pre-Op Diagnosis Codes: * Crohn's disease of small and large intestines with complication (CMS/HCC) [K50.819] Patient Active Problem List Diagnosis ??? Cervical pain (neck) ??? Cervical radiculopathy at C7 ??? Cervical disc herniation ??? Cervical radiculopathy ??? Fusion of spine of cervical region ??? Crohn's disease of both small and large intestine with other complication (CMS/HCC) ??? 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 Bilateral nephrolithiasis ??? High risk medications (not anticoagulants) long-term use ??? Urinary frequency ??? Crohn's disease of small and large intestines with complication (CMS/HCC) ??? Hyperoxaluria Past Medical History: Diagnosis Date ??? Colon [...] CATHETER LEFT Left 04/19/2020 Allergies Allergen Reactions ??? Iodinated Contrast Media Rash Taking? Last Dose Start Date End Date Provider cholecalciferol (VITAMIN D-3) 23424 unit tablet Past Week 11/21/20 03/13/21 Corbin Duque MD Take 1 tablet (50,000 Units total) by mouth once a week cholestyramine-aspartame 4 gram powder Past Week 01/17/21 -- Corbin Duque MD Take 1 Scoop by mouth 2 (two) times a day cyanocobalamin, vitamin B-12, 5,000 mcg tablet, sublingual Past Week -- -- Rajeev Dee MD diphenhydrAMINE (BENADRYL) 25 mg capsule Past Month -- -- Rajeev Dee MD losartan-hydrochlorothiazide (HYZAAR) 100-25 mg per tablet 02/05/2021 02/23/19 -- Rajeev Dee MD melatonin 5 mg tablet Past Week -- -- Rajeev Dee MD multivitamin capsule Past Week -- -- Rajeev Dee MD Stelara injection 02/05/2021 06/21/20 -- Corbin Duque MD INJECT 90 MG (1 SYRINGE) UNDER THE SKIN EVERY 8 WEEKS tamsulosin (FLOMAX) 0.4 mg extended release capsule 02/05/2021 09/07/20 -- [place] MD Take 1 capsule (0.4 mg total) by mouth nightly traZODone (DESYREL) 50 mg tablet Past Week 12/21/20 -- ProviderRajeev MD zolpidem (AMBIEN) 5 mg tablet Past Month 12/01/20 -- Provider, MD Rajeev Current Facility-Administered Medications: ??? sodium chloride 0.9% flush 0.5-20 mL, 0.5-20 mL, intra-catheter, Q8H SREEDHAR ??? sodium chloride 0.9% flush 0.5-20 mL, 0.5-20 mL, intra-catheter, PRN ??? sodium chloride 0.9% infusion, 30 mL/hr, intravenous, Continuous, Last Rate: 30 mL/hr at 02/06/21 0839, Rate Verify at 02/06/21 0839 Social History Tobacco Use Smoking Status Former Smoker ??? Packs/day: 1.50 ??? Types: Cigarettes ??? Start date: 1993 ??? Quit date: 2002 ??? Years since quittin.4 Smokeless Tobacco Never Used Substance and Sexual Activity Alcohol Use Not Currently Substance and Sexual Activity Drug Use No Family History Problem Relation Age of Onset ??? Heart attack Father ??? Anesthesia problems Neg Hx Vitals: 02/06/21 0825 BP: 131/90 Pulse: 86 Resp: 15 Temp: 36 ??C (96.8 ??F) SpO2: 96% PT: No results found for requested labs within last 720 hours. INR: No results found for requested labs within last 720 hours. APTT: No results found for requested labs within last 720 hours. Hgb A1C: No results found for requested labs within last 720 hours. CBC RBC: No results found for requested labs within last 720 hours. RDW: No results found for requested labs within last 720 hours. MCHC: No results found for requested labs within last 720 hours. MCH: No results found for requested labs within last 720 hours. MCV: No results found for requested labs within last 720 hours. Hct: No results found for requested labs within last 720 hours. Hgb: No results found for requested labs within last 720 hours. WBC: No results found for requested labs within last 720 hours. MPV: No results found for requested labs within last 720 hours. Platelets: No results found for requested labs within last 720 hours. RDW CV: No results found for requested labs within last 720 hours. RDW Sd: No results found for requested labs within last 720 hours. BMP Glucose: No results found for requested labs within last 720 hours. Calcium: No results found for requested labs within last 720 hours. Sodium: No results found for requested labs within last 720 hours. Potassium: No results found for requested labs within last 720 hours. CO2: No results found for requested labs within last 720 hours. Chloride: No results found for requested labs within last 720 hours. BUN: No results found for requested labs within last 720 hours. Creatinine: No results found for requested labs within last 720 hours. DOS Physical Exam Medical history, medications, and allergies reviewed. Attestation: This PAT evaluation 02/06/2021. Airway Exam: Cervical ROM: FROM TM distance: normal Cardiovascular Exam: Rate: regular Rhythm: regular Pulmonary Exam: LCTA, bilat EENT Exam: trachea midline Dental Exam: Appears intact Skin Exam: Skin is warm. Current state: Patient's current state is cooperative and interactive. Anesthesia Plan ASA 3 My patient is approved for the Anesthesia Controlled Medication protocol when under care of a CRUMB PACKER Planned anesthesia: MAC Induction: Induction: intravenous. Postoperative Plan: Patient's planned disposition post procedure is Outpatient. Informed Consent: Discussed plan with CRUMB PACKER. Anesthesia plan and risks discussed with patient. Plan and Consent Comments: NPO status confirmed Velma Herrera am scribing for, and in the presence of Dr. Boucher. . Consent and Attending signature: I and/or my designee have discussed the anesthesia plan, benefits, possible alternatives, parental presence at time of induction (if indicated), and clinically relevant risks that may include dental injury, unintentional awareness, and/or other complications. The patient and/or parent/legal guardian understand, and agree to proceed. All questions answered. Cosigned by Bob Boucher MD at 02/06/2021 3:25 PM CDT documented in this encounter Plan of Treatment Not on file documented as of this encounter Visit Diagnoses Not on filedocumented in this encounter Administered Medications Inactive Administered Medications - up to 3 most recent administrations Medication Order MAR Action Action Date Dose Rate Site lidocaine (cardiac) (XYLOCAINE) preservative free injection intravenous, As needed, Starting on Sat02/06/21 at 0942, Anesthesia Intra-op, Indications: Ventricular ArrhythmiasIndications:V entricular Arrhythmias Given 02/06/2021 9:42 AM CDT 100 mg propofoL (DIPRIVAN) 10 mg/mL IV intravenous, Continuous PRN, Starting on Sat02/06/21 at 0940, Anesthesia Intra-op Restarted 02/06/2021 10:23 AM CDT 110 mcg/kg/min 65.274 mL/hr Rate/Dose Change 02/06/2021 10:06 AM CDT 110 mcg/kg/min 65 .274 mL/hr New Bag 02/06/2021 9:40 AM CDT 130 mcg/kg/min 77.142 mL /hr sodium chloride 0.9% infusion 30 mL/hr, intravenous, Continuous, Starting on Sat02/06/21 at 0900, Pre-Procedure (GI) Restarted 02/06/2021 9:48 AM CDT Rate/Dose Verify 02/06/2021 9:38 AM CDT 30 mL/h r New Bag 02/06/2021 8:36 AM CDT 30 mL/hr documented in this encounter Care Teams Rn Ostomy Relationship Specialty Start Date End Date Jayla Phoenix MD [address] [place] [address] PCP - General 08/07/17 documented as of this encounter
--- OUTSIDE RECORDS SUMMARY | 2024-08-23 08:04 | XMS_ITS | Encounter Summary ---
Author Organization [facility] Address [address] [place] [address] Phone Care Team Providers Care Sanitation Truck Cleaner Name Role Phone Jalya Phoenix MD Primary Care Provider [phone] Encounter Details Date Type Department Care Team (Late st Contact Info) Description 04/07/2021 Orders Only [facility] [address] [facility] Advanced Medicine 8th [place] [address] [place] [address] Corbin Duque MD [address] [place] [address] Social History Tobacco Use Types Packs/Day Years [...] on file 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 Gender Identity Male 02/04/2019 10:52 AM CDT Sexual Orientation Straight 02/04/2019 10 :52 AM CDT documented as of this encounter Ordered Prescriptions Prescription Sig Dispense Quantity Refills Last Filled Start Date End Date ergocalciferol (VITAMIN D) 50,000 unit capsule Take 1 capsule (50,000 Units total) by mouth once a week 4 capsule 1 04/07/2021 documented in this encounter Plan of Treatment Not on file documented as of this encounter Visit Diagnoses Not on filedocumented in this encounter Care Teams Sanitation Truck Cleaner Relationship Specialty Start Date End Date Jayla Phoenix MD [address] [place] [address] PCP - General 08/07/17 documented as of this encounter
--- OUTSIDE RECORDS SUMMARY | 2024-08-23 08:04 | XMS_ITS | Encounter Summary ---
Author Organization [facility] Address [address] [place] [address] Phone Care Team Providers Care Enterprise Services Manager Name Role Phone Jayla Phoenix MD Primary Care Provider [phone] Encounter Details Date Type Department Care Team (Late st Contact Info) Description 01/17/2021 Orders Only [facility] [address] [facility] Advanced Medicine 8th [place] [address] [place] [address] Corbin Duque MD [address] [place] [address] Crohn's disease of both small [...] on file 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 Gender Identity Male 02/04/2019 10:52 AM CDT Sexual Orientation Straight 02/04/2019 10 :52 AM CDT documented as of this encounter Ordered Prescriptions Prescription Sig Dispense Quantity Refills Last Filled Start Date End Date cholestyramine-aspa rtame 4 gram powderIndications:f or bowel resection Take 1 Scoop by mouth 2 (two) times a day 1 Can 8 01/17/2021 07/26/2021 documented in this encounter Plan of Treatment Not on file documented as of this encounter Visit Diagnoses Diagnosis Crohn's disease of both small and large intestine with complication (HCC) documented in this encounter Discontinued Medications Medication Sig Discontinue Reason Start Date End Da te cholestyramine-aspartame 4 gram powderIndications:for bowel resection Take 1 Scoop by mouth 2 (two) times a day Reorder 11/14/2020 01/17/2021 documented as of this encounter Care Teams Enterprise Services Manager Relationship Specialty Start Date End Date Jayla Phoenix MD [address] [place] [id number] PCP - General 08/07/17 documented as of this encounter
--- OUTSIDE RECORDS SUMMARY | 2024-08-23 08:04 | XMS_ITS | Encounter Summary ---
Author Organization [facility] Healthcare Address [address] [place] [address] Care Team Providers Care Ruching Machine Operator Name Role Phone Jayla Phoenix MD Primary Care Provider [phone] Reason for Referral * MRI/CAT/PET Scan (Routine) - Closed Specialty Diagnoses / Procedures Referred By Contac t Referred To Contact Radiology Diagnoses Fusion of spine of cervical region Procedures MRI Spine Cervical and Thoracic WO Contrast Christina Phoenix MD Phone: tel: fax: [address] [address] Referral ID Status Reason Start Date Expiration Date Visits Re quested Visits Authorized [id number] Closed 03/17/2021 04/15/2021 1 1 Reason for Visit * MRI/CAT/PET Scan (Routine) - Closed Specialty Diagnoses / Procedures Referred By Contac t Referred To Contact Radiology Diagnoses Fusion of spine of cervical region Procedures MRI Spine Cervical and Thoracic WO Contrast Christina Phoenix MD Phone: tel: fax: [address] [address] Referral ID Status Reason Start Date Expiration Date Visits Re quested Visits Authorized [id number] Closed 03/17/2021 04/15/2021 1 1 Encounter Details Date Type Department Care Team (Latest Contact Info) Description 03/30/2021 4:30 PM CDT - 03/30/2021 11:59 PM CDT Hospital Encounter [facility] [address] [address] [address] Christina Phoenix MD [address] 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 Gender Identity Male 02/04/2019 10:52 AM CDT Sexual Orientation Straight 02/04/2019 10 :52 AM CDT documented as of this encounter Medications at Time of Discharge cyanocobalamin, vitamin B-12, 5,000 mcg tablet, sublingualIndica tions:Prevention of Vitamin B12 Deficiency Place 1 tablet under the tongue lang path therapist before breakfast losartan-hydroch lorothiazide (HYZAAR) 100-25 mg per tabletIndication s:hypertension Take 1 tablet by mouth nightly 02/23/2019 multivitamin capsuleIndicatio ns:Vitamin Deficiency Prevention Take 1 capsule by mouth lang path therapist before breakfast cholestyramine-a spartame 4 gram powderIndication s:for bowel resection Take 1 Scoop by mouth 2 (two) times a day 1 Can 8 01/17/2021 diphenhydrAMINE (BENADRYL) 25 mg capsuleIndicatio ns:sleep Take [...] Name Priority Date/Time Associated Diagnosis Comments MRI SPINE CERVICAL THORACIC WO CONTRAST Schedule Routine, Read Routine (OP Routine) 03/30/2021 5:18 PM CDT Fusion of spine of cervical region documented in this encounter Results * MRI Spine Cervical [...] detail. Electronically signed by: Luisito Freedman M.D. us Christina Phoenix MD IMG MRI PROCEDURES Final Result documented in this encounter Visit Diagnoses Diagnosis Fusion of spine of cervical region documented in this encounter Care Teams Ruching Machine Operator Relationship Specialty Start Date End Date Jayla Phoenix MD [address] [place] [address] PCP - General 08/07/17 documented as of this encounter
--- OUTSIDE RECORDS SUMMARY | 2024-08-23 08:04 | XMS_ITS | Encounter Summary ---
Author Organization [facility] Healthcare Address [address] [place] [address] Care Team Providers Care Preschool Assistant Name Role Phone Jayla Phoenix MD Primary Care Provider [phone] Reason for Referral * Diagnostic Imaging (Routine) - Closed Specialty Diagnoses / Procedures Referred By Elina senior Referred To Contact Diagnoses Nephrolithiasis Procedures US Kidney Complete Hipolito Reyes MD Phone: tel: fax: [place] [address] [address] [phone] Referral ID Status Reason Start Date Expiration Date Visits Re quested Visits Authorized [id number] Closed 11/07/2020 12/07/2021 1 1 Reason for Visit * Diagnostic Imaging (Routine) - Closed Specialty Diagnoses / Procedures Referred By Elina senior Referred To Contact Diagnoses Nephrolithiasis Procedures US Kidney Complete Hipolito Reyes MD Phone: tel: fax: [place] [address] [address] [phone] Referral ID Status Reason Start Date Expiration Date Visits Re quested Visits Authorized [id number] Closed 11/07/2020 12/07/2021 1 1 Encounter Details Date Type Department Care Team (Latest Contact Info) Description 12/19/2020 9:10 AM CDT - 12/19/2020 11:59 PM CDT Hospital Encounter [facility] [address] [address] [address] [place] [address] [place] [address] Nephrolithiasis Discharge Disposition: Discharge to home or [...] on file 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 Gender Identity Male 02/04/2019 10:52 AM CDT Sexual Orientation Straight 02/04/2019 10 :52 AM CDT documented as of this encounter Medications at Time of Discharge cyanocobalamin, vitamin B-12, 5,000 mcg tablet, sublingualIndica tions:Prevention of Vitamin B12 [address] 1 tablet under the tongue scrape gatherer before breakfast losartan-hydroch lorothiazide (HYZAAR) 100-25 mg per tabletIndication s:hypertension Take 1 tablet by mouth nightly 02/23/2019 multivitamin capsuleIndicatio ns:Vitamin Deficiency Prevention Take 1 capsule by mouth scrape gatherer before breakfast cholecalciferol (VITAMIN D-3) 98965 unit tabletIndication s: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) Take 1 tablet (50,000 Units total) by mouth once a week 4 tablet 3 11/21/2020 1 acetaminophen 500 mg capsuleIndicatio ns:Pain Take 2 capsules (1,000 mg total) by mouth every 6 (six) hours For pain 120 tablet 04/15/2020 1 cholestyramine-a spartame 4 gram powderIndication s:for bowel resection Take 1 Scoop by mouth 2 (two) times a day 1 Can 2 11/14/2020 1 diphenhydrAMINE (BENADRYL) 25 mg capsuleIndicatio ns:sleep [...] mouth nightly 30 capsule 11 09/07/2020 2 zolpidem (AMBIEN) 5 mg tablet 0 12/01/2020 3 documented as of this encounter Discharge Disposition Disposition Code Departure Means Destination Discharge to home or self care documented in this encounter Plan of Treatment Not on file documented as of this encounter Procedures Procedure Name Priority Date/Time Associated Diagnosis Comments US KIDNEY COMPLETE Schedule Routine, Read Routine (OP Routine) 12/19/2020 9:54 AM CDT Nephrolithiasis documented in this encounter [...] it. Electronically signed by: Brandon Cabezas M.D. [facility] Reyes MD [facility] US PROCEDURES F inal Result documented in this encounter Visit Diagnoses Diagnosis Nephrolithiasis Calculus of kidney documented in this encounter Care Teams Preschool Assistant Relationship Specialty Start Date End Date Jayla Phoenix MD [address] [place] [address] PCP - General 08/07/17 documented as of this encounter
--- OUTSIDE RECORDS SUMMARY | 2024-08-23 08:04 | XMS_ITS | Encounter Summary ---
Author Organization [facility] Healthcare Address [address] [place] [address] Care Team Providers Care Edger Liner Name Role Phone Jayla Phoenix MD Primary Care Provider [phone] Encounter Details Date Type Department Care Team (Late st Contact Info) Description 12/21/2020 2:00 PM CDT Lab [facility] [address] [place] [address] Corbin Duuqe MD [address] 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 documented in this encounter Plan of Treatment Not on file documented as of this encounter Procedures Procedure Name Priority Date/Time Associated Diagnosis Comments T-SPOT.TB Routine 12/21/2020 2:02 PM CDT Crohn's disease of small and large intestines with complication (CMS/HCC) High risk medications (not anticoagulants) long-term use EGFR Routine 12/21/2020 2:02 PM CDT Crohn's disease of small and large intestines with complication (CMS/HCC) High risk medications (not anticoagulants) long-term use DIFFERENTIAL AUTO Routine 12/21/2020 2:0 2 PM CDT Crohn's disease of small and large intestines with complication (CMS/HCC) High risk medications (not anticoagulants) long-term use CBC WITH AUTO DIFFERENTIAL Routine 12/21/2020 2:02 PM CDT Crohn's disease of small and large intestines with complication (CMS/HCC) High risk medications (not anticoagulants) long-term use VITAMIN D 25 HYDROXY Routine 12/21/2020 2:02 PM CDT Crohn's disease of small and large intestines with complication (CMS/HCC) High risk medications (not anticoagulants) long-term use CRP (ACUTE PHASE) Routine 12/21/2020 2:0 2 PM CDT Crohn's disease of small and large intestines with complication (CMS/HCC) High risk medications (not anticoagulants) long-term use COMPREHENSIVE METABOLIC PANEL Routine 12/21/2020 2:02 PM CDT Crohn's disease of small and large intestines with complication (CMS/HCC) High risk medications (not anticoagulants) long-term use documented in this encounter Results * eGFR (12/21/2020 2:02 PM CDT) eGFR 76 mL/min/1.7 3 m2 [facility] Comment: Interpretive Data Reference Interval Normal ?>/= [...] was last reviewed 2020 Blood specimen (specimen) 12/21/2020 2:02 PM CDT 12/21/2020 2:38 PM CDT us Corbin Duque MD LAB BLOOD ORDERABLES Final Result Performing Organization Address City/State/[facility] Co ak Phone Number [facility] [address] [facility]. [place] [address] * Differential, auto (12/21/2020 2:02 PM CDT) Neutrophil abs 3.6 1.7 - 6.5 K/cumm [facility] Imm gran abs 0.0 0.0 - 0.1 K/cumm [facility] Lymphocyte abs 1.6 0.8 - 3.3 K/cumm [facility] Monocyte abs 0.4 0.2 - 0.8 K/cumm ALIZENER [facility] Eosinophil abs 0.1 0.0 - 0.5 K/cumm [facility] Basophil abs 0.0 0.0 - 0.1 K/cumm [facility] Neutrophil pct 61.6 % [facility] Comment: Interpretive Data Percent cell count reference ranges are not reported, since discordance with absolute values may lead to misinterpretation of CBC data. Current Interpretive Data was last revised on 2017. Imm gran pct 0.2 % [facility] Comment: Interpretive Data Percent cell count reference ranges are not reported, since discordance with absolute values may lead to misinterpretation of CBC data. Current Interpretive Data was last revised on 2017. Lymphocyte pct 27.8 % [facility] Comment: Interpretive Data Percent cell count reference ranges are not reported, since discordance with absolute values may lead to misinterpretation of CBC data. Current Interpretive Data was last revised on 2017. Monocyte pct 7.6 % [facility] Comment: Interpretive Data Percent cell count reference ranges are not reported, since discordance with absolute values may lead to misinterpretation of CBC data. Current Interpretive Data was last revised on 2017. Eosinophil pct 2.1 % [facility] Comment: Interpretive Data Percent cell count reference ranges are not reported, since discordance with absolute values may lead to misinterpretation of CBC data. Current Interpretive Data was last revised on 2017. Basophil pct 0.7 % [facility] Comment: Interpretive Data Percent cell count reference ranges are not reported, since discordance with absolute values may lead to misinterpretation of CBC data. Current Interpretive Data was last revised on 2017. Blood specimen (specimen) 12/21/2020 2:02 PM CDT 12/21/2020 2:06 PM CDT us Corbin Duque MD LAB BLOOD ORDERABLES Final Result [facility] [address] [facility]. [place] [address] * T-SPOT.TB (12/21/2020 2:02 PM CDT) [facility] T-SPOT.TB Negative SeeBri R[facility]AN S[facility] Comment: Normal Value: Negative A [...] Passed [facility]AN [facility] Comment: Test Performed at: [employer] [facility] [facility], [facility] [address] [place] [address] ??[id number] ? GEORGI ASTORGA MD,PHD Blood specimen (specimen) 12/21/2020 2:02 PM CDT 12/21/2020 2:37 PM CDT Corbin Duque MD LAB MICROBIOLOGY - GENERAL ORDERABLES Final Result [facility] [address] [facility] Department [place] [address] * (ABNORMAL) Vitamin D 25 hydroxy (12/21/2020 2:02 PM CDT) [facility] Vitamin D 25-OH 27(L) 30 - 80 ng/mL R[facility]AN SEN Comment:Testing performed by : [facility], [address], [place]., [address] Blood specimen (specimen) 12/21/2020 2:02 PM CDT 12/21/2020 3:34 PM CDT Corbin Duque MD LAB BLOOD ORDERABLES Final Result Performing Organization Address [facility] Co de Phone Number RYAN SEN [phone] [facility] [place] [address] * CRP (acute phase) (12/21/2020 2:02 PM CDT) Pathologist [facility] CRP <3.0 <=10.0 mg/L [facility] Blood specimen (specimen) 12/21/2020 2:02 PM CDT 12/21/2020 2:06 PM CDT Corbin Duque MD LAB BLOOD ORDERABLES Final Result Performing Organization Address [facility] de Phone Number RYAN BILLY [phone] [facility] [place] [address] * Comprehensive metabolic panel (12/21/2020 2:02 PM CDT) Sodium 139 135 - 145 mmol/L [facility] Potassium, pl 4.2 3.3 - 4.9 mmol/L [facility] Chloride 103 97 - 110 mmol/L [facility] CO2 26 22 - 32 mmol/L [facility] Anion gap 10 2 - 15 mmol/L [facility] BUN 20 8 - 25 mg/dL [facility] Creatinine 1.13 0.80 - 1.30 mg/dL [facility] Glucose 98 70 - 199 mg/dL [facility] Comment: Interpretive Data Fasting glucose >/= 126 [...] Duque MD LAB BLOOD ORDERABLES Final Result [facility] [address] [facility] Department [place] [address] * CBC with auto differential (12/21/2020 2:02 PM CDT) WBC 5.8 3.8 - 9.9 K/cumm [facility] W Hgb 14.1 13.0 - 17.5 g/dL [facility] Hct 41.5 38.9 - 50.3 % [facility] Plt 286 150 - 400 K/cumm [facility] W MPV 9.8 9.1 - 12.3 fL [facility] RBC 4.75 4.30 - 5.80 M/cumm [facility] MCV 87.4 81.3 - 96.4 fL [facility] MCH 29.7 27.1 - 33.3 pg [facility] MCHC 34.0 32.3 - 35.7 g/dL [facility] RDW CV 13.0 11.1 - 14.9 % [facility] RDW SD 41.9 35.7 - 48.1 fL [facility] W NRBC abs 0.00 0.00 - 0.01 K/cumm RYAN W Blood specimen (specimen) 12/21/2020 2:02 PM CDT 12/21/2020 2:06 PM CDT us Corbin Duque MD LAB BLOOD ORDERABLES Final Result [facility] [address] [facility] Department of Laboratories [place], [place] [id number] documented in this encounter Visit Diagnoses Diagnosis Crohn's disease of small and large intestines with complication (HCC) High risk medications (not anticoagulants) long-term use Encounter for long-term (current) use of other medications documented in this encounter Care Teams Edger Liner Relationship Specialty Start Date End Date Jayla Phoenix MD [address] [place] [address] PCP - General 08/07/17 documented as of this encounter
--- OUTSIDE RECORDS SUMMARY | 2024-08-23 08:05 | XMS_ITS | Encounter Summary ---
Author Organization [facility] Address [address] [place] [address] Phone Care Team Providers Care Creative Manager Name Role Phone Jayla Phoenix MD Primary Care Provider [phone] Encounter Details Date Type Department Care Team (Late st Contact Info) Description 05/17/2020 Telephone [facility] Gastroenterology [address] [facility] [address] Office Building [address] [place] [address] Melina Shankar RMA Social History Tobacco Use Types Packs/Day Years Used Date Smoking Tobacco: Former Cigarettes 1.5 9 1 994 - 2002 Smokeless Tobacco: Never Alcohol Use Standard Drinks/Week Comments Not Currently 0 (1 standard drink = 0.6 oz pur e alcohol) Sex and Gender Information Value Date Recorded Sex Assigned at Not on file 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 documented in this encounter Plan of Treatment Not on file documented as of this encounter Visit Diagnoses Not on filedocumented in this encounter Care Teams Creative Manager Relationship Specialty Start Date End Date Jayla Phoenix MD [address] [place] [address] PCP - General 08/07/17 documented as of this encounter
--- OUTSIDE RECORDS SUMMARY | 2024-08-23 08:05 | XMS_ITS | Encounter Summary ---
Author Organization [facility] Address [address] [place] [address] Phone Care Team Providers Care Tipple Greaser Name Role Phone Jayla Phoenix MD Primary Care Provider [phone] Encounter Details Date Type Department Care Team (Late st Contact Info) Description 06/13/2020 Orders Only 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
--- OUTSIDE RECORDS SUMMARY | 2024-08-23 08:05 | XMS_ITS | Encounter Summary ---
Author Organization [facility] Address [address] [place] [address] Phone Care Team Providers Care Locker Room Clerk Name Role Phone Jayla Phoenix MD Primary Care Provider [phone] Encounter Details Date Type Department Care Team (Late st Contact Info) Description 05/17/2020 Orders Only 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 Gender Identity Male 02/04/2019 10:52 AM CDT Sexual Orientation Straight 02/04/2019 10 :52 AM CDT documented as of this encounter Plan of Treatment Not on file documented as of this encounter Results * Comprehensive metabolic panel (05/18/2020 10:33 AM CDT) Sodium 140 135 - 145 mmol/L [facility] Potassium, pl 4.6 3.3 - 4.9 mmol/L [facility] Chloride 105 97 - 110 mmol/L [facility] CO2 25 22 - 32 mmol/L [facility] Anion gap 10 2 - 15 mmol/L [facility] BUN 13 8 - 25 mg/dL [facility] Creatinine 1.00 0.80 - 1.30 mg/dL [facility] Glucose 89 70 - 199 mg/dL [facility] Comment: [...] interpretive data was last revised 2017. Calcium 9.1 8.5 - 10.3 mg/dL [facility] Bilirubin, total 0.2 0.1 - 1.2 mg/dL [facility] Protein, pl 6.6 6.5 - 8.5 g/dL [facility] Albumin 3.9 3.5 - 5.0 g/dL [facility] Alk phos 94 40 - 130 Units/L [facility] ALT 50 7 - 55 Units/L [facility] AST 29 10 - 50 Units/L [facility] Blood specimen (specimen) 05/18/2020 10:33 AM CDT 05/18/2020 11:29 AM CDT Hipolito Reyes MD LAB BLOOD ORDERABLE S Final Result [facility] [address] [facility]. [place] [address] documented in this encounter Visit Diagnoses Diagnosis Nephrolithiasis- Primary Calculus of kidney documented in this encounter Care Teams Locker Room Clerk Relationship Specialty Start Date End Date Jayla Phoenix MD [address] [id number] PCP - General 08/07/17 documented as of this encounter
--- OUTSIDE RECORDS SUMMARY | 2024-08-23 08:05 | XMS_ITS | Encounter Summary ---
Author Organization 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 Gender Identity Male 02/04/2019 10:52 AM CDT Sexual Orientation Straight 02/04/2019 10 :52 AM CDT documented as of this encounter Plan of Treatment Not on file documented as of this encounter Procedures Procedure Name Priority Date/Time Associated Diagnosis Comments SCAN - LABS 06/29/2020 documented in this encounter Results * SCAN - LABS (06/29/2020) us Provider Scanning Final Result documented in this encounter Visit Diagnoses Not on filedocumented in this encounter Care Teams Cut Off Sawyer [place]ingle Mill Relationship Specialty Start Date End Date Jayla Phoenix MD [address] [place] [address] PCP - General 08/07/17 documented as of this encounter
--- OUTSIDE RECORDS SUMMARY | 2024-08-23 08:05 | XMS_ITS | Encounter Summary ---
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 Gender Identity Male 02/04/2019 10:52 AM CDT Sexual Orientation Straight 02/04/2019 10 :52 AM CDT documented as of this encounter Plan of Treatment Scheduled Orders Name Type Priority Associated Diagnoses Orde r Schedule CBC with auto differential Lab Routine 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) High risk medications (not anticoagulants) long-term use Expected: 06/27/2020, Expires: 06/27/2021 CRP (acute phase) Lab Routine 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) High risk medications (not anticoagulants) long-term use Expected: 06/27/2020, Expires: 06/27/2021 Comprehensive metabolic panel Lab Routine 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) High risk medications (not anticoagulants) long-term use Expected: 06/27/2020, Expires: 06/27/2021 Vitamin D 25 hydroxy Lab Routine 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
--- OUTSIDE RECORDS SUMMARY | 2024-08-23 08:05 | XMS_ITS | Encounter Summary ---
Author Organization [facility] Address [address] [place] [address] Phone Care Team Providers Care Salon Assistant Name Role Phone Jayla Phoenix MD Primary Care Provider [phone] Encounter Details Date Type Department Care Team (Late st Contact Info) Description 05/17/2020 Telephone [facility] Gastroenterology [address] 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 Gender Identity Male 02/04/2019 10:52 AM CDT Sexual Orientation Straight 02/04/2019 10 :52 AM CDT documented as of this encounter Miscellaneous Notes * Telephone Encounter - Bart Armendariz CMA - 05/17/2020 9:40 AM CDT CaseId:[id number];Status:Approved;Review Type:Prior Auth;Coverage Start Date:04/17/2020;Coverage End Date:05/17/2021; (Valenzuela: [id number]) Stelara 90MG/ML syringes Form [employer] Electronic PA Form documented in this encounter Plan of Treatment Not on file documented as of this encounter Visit Diagnoses Not on filedocumented in this encounter Care Teams Salon Assistant Relationship Specialty Start Date End Date Jayla Phoenix MD [address] [place] [address] PCP - General 08/07/17 documented as of this encounter
--- OUTSIDE RECORDS SUMMARY | 2024-08-23 08:05 | XMS_ITS | Encounter Summary ---
Author Organization [facility] Healthcare Address [address] [place] [address] Care Team Providers Care Oxygraph Operator Name Role Phone Jayla Phoenix MD Primary Care Provider + [phone] Reason for Referral * Diagnostic Imaging (Routine) - Closed Specialty Diagnoses / Procedures Referred By Elina senior Referred To Contact Diagnoses Hydronephrosis with urinary obstruction due to renal calculus Bilateral nephrolithiasis Procedures Kidney Complete Hipolito Reyes MD Phone: tel: fax: [place] [address] [address] [phone] Referral ID Status Reason Start Date Expiration Date Visits Re quested Visits Authorized [id number] Closed 04/15/2020 05/15/2021 1 1 Reason for Visit * Diagnostic Imaging (Routine) - Closed Specialty Diagnoses / Procedures Referred By Elina senior Referred To Contact Diagnoses Hydronephrosis with urinary obstruction due to renal calculus Bilateral nephrolithiasis Procedures Kidney Complete Hipolito Reyes MD Phone: tel: fax: [place] [address] [address] [phone] Referral ID Status Reason Start Date Expiration Date Visits Re quested Visits Authorized [id number] Closed 04/15/2020 05/15/2021 1 1 Encounter Details Date Type Department Care Team (Latest Contact Info) Description 06/01/2020 8:49 AM CDT - 06/01/2020 11:59 PM CDT Hospital Encounter [facility] Imaging [id number] [address] [address] [place]Hipolito MD [address] [place] [address] Hydronephrosis with urinary obstruction due to renal calculus; Bilateral nephrolithiasis Discharge Disposition: Discharge to home [...] on file 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 Gender Identity Male 02/04/2019 10:52 AM CDT Sexual Orientation Straight 02/04/2019 10 :52 AM CDT documented as of this encounter Medications at Time of Discharge cyanocobalamin, vitamin B-12, 5,000 mcg tablet, sublingualIndica tions:Prevention of Vitamin B12 Deficiency [address] 1 tablet under the tongue stab setter and driller before breakfast losartan-hydroch lorothiazide (HYZAAR) 100-25 mg per tabletIndication s:hypertension Take 1 tablet by mouth nightly 02/23/2019 multivitamin capsuleIndicatio ns:Vitamin Deficiency Prevention Take 1 capsule by mouth stab setter and driller before breakfast acetaminophen 500 mg capsuleIndicatio ns:Pain Take 2 capsules (1,000 mg total) by mouth every 6 (six) hours For pain 120 tablet 04/15/2020 1 cholestyramine-a spartame 4 gram powderIndication s:for bowel resection Take 1 Scoop by mouth 2 (two) times a day 1 Can 1 03/10/2020 0 diphenhydrAMINE (BENADRYL) 25 mg capsuleIndicatio ns:sleep Take 25 mg by mouth nightly as needed for itching 3 docusate sodium (COLACE) 100 mg capsuleIndicatio ns:constipation Take 1 capsule (100 mg total) by mouth 2 (two) times a day as needed for constipation 60 capsule 04/15/2020 1 ergocalciferol (VITAMIN D) 50,000 unit capsuleIndicatio ns:Vitamin D Deficiency Take 1 capsule (50,000 Units total) by mouth once a week 4 capsule 2 05/02/2020 0 melatonin 5 mg tabletIndication s:sleep Take 5 mg by mouth nightly as needed 3 oxyCODONE (ROXICODONE) 5 mg immediate release tabletIndication s:Pain Take 1 tablet (5 mg total) by mouth every 6 (six) hours as needed for pain 10 tablet 04/15/2020 1 ustekinumab (STELARA) 130 mg/26 mL solutionIndicati ons:Crohn's Disease Infuse 104 mL (520 mg total) into a venous catheter once for 1 dose 104 mL 04/07/2020 0 ustekinumab (STELARA) injectionIndicat ions:Crohn's Disease Inject 1 mL (90 mg total) under the skin every 8 (eight) weeks 1 mL 1 05/09/2020 0 documented as of this encounter Discharge Disposition Disposition Code Departure Means Destination Discharge to home or self care documented in this encounter Plan of Treatment Not on file documented as of this encounter Procedures Procedure Name Priority Date/Time Associated Diagnosis Comments US KIDNEY COMPLETE Schedule Routine, Read Routine (OP Routine) 06/01/2020 9:28 AM CDT Hydronephrosis with urinary obstruction due to renal calculus Bilateral nephrolithiasis documented in this encounter Results * US Kidney Complete (06/01/2020 9:28 AM CDT) Anatomical Region Laterality Modality Kidney N/A Ultrasound 06/01/2020 10:1 4 AM CDT Impressions 06/01/2020 10:17 AM CDT 1. ??Single, nonobstructing right kidney superior pole renal calculus. 2. ??Left kidney inferior pole nonobstructing renal calculus. 3. ??Findings suspicious for a milk of calcium cyst in the left kidney inferior pole characterized by layering echogenic material. 4. ??No hydronephrosis. ??Interval removal of the left nephrostomy catheter and ureteral stent. Dictated by: Mil Lowry The radiology attending physician has personally reviewed this study, and had reviewed and/or edited this written report and agrees with it. Electronically signed by: Brandon Cabezas M.D. Narrative 06/01/2020 10:17 AM CDT EXAMINATION: COMPLETE RENAL SONOGRAM HISTORY: ??49-year-old male with nephrolithiasis status-post left percutaneous nephrolithotomy. COMPARISON: ??CT dated 04/13/2020. FINDINGS: ?? Kidneys: The echogenicity of both kidneys is normal. The kidneys are normal in size. ??The right kidney measures 11.8 cm in length, and the left, 11.7 cm in length. There is no hydronephrosis in either kidney. A 1.0 cm nonobstructing renal calculus is identified in the right kidney superior pole, likely unchanged when compared to prior CT. A 2nd nonobstructing renal calculus is identified in the left kidney inferior pole measuring 1.3 cm, also likely unchanged compared to prior CT. A 3rd hyperechogenic lesion in the left kidney inferior pole that apparently layers dependently on supine positioning with associated twinkle artifact is identified. ??Interval removal of the left cutaneous nephrostomy catheter and ureteral stent. Bladder: The urinary bladder is normal. ??Bilateral ureteral jets are identified. Procedure Note Brandon Cabezas MD - 06/01/2020 EXAMINATION: COMPLETE RENAL SONOGRAM HISTORY: 49-year-old male with nephrolithiasis status-post left percutaneous nephrolithotomy. COMPARISON: CT dated 04/13/2020. FINDINGS: Kidneys: The echogenicity of both kidneys is normal. The kidneys are normal in size. The right kidney measures 11.8 cm in length, and the left, 11.7 cm in length. There is no hydronephrosis in either kidney. A 1.0 cm nonobstructing renal calculus is identified in the right kidney superior pole, likely unchanged when compared to prior CT. A 2nd nonobstructing renal calculus is identified in the left kidney inferior pole measuring 1.3 cm, also likely unchanged compared to prior CT. A 3rd hyperechogenic lesion in the left kidney inferior pole that apparently layers dependently on supine positioning with associated twinkle artifact is identified. Interval removal of the left cutaneous nephrostomy catheter and ureteral stent. Bladder: The urinary bladder is normal. Bilateral ureteral jets are identified. IMPRESSION: 1. Single, nonobstructing right kidney superior pole renal calculus. 2. Left kidney inferior pole nonobstructing renal calculus. 3. Findings suspicious for a milk of calcium cyst in the left kidney inferior pole characterized by layering echogenic material. 4. No hydronephrosis. Interval removal of the left nephrostomy catheter and ureteral stent. Dictated by: Mil Lowry The radiology attending physician has personally reviewed this study, and had reviewed and/or edited this written report and agrees with it. Electronically signed by: Brandon Cabezas M.D. Hipolito Reyes MD IM US PROCEDURES F inal Result documented in this encounter Visit Diagnoses Diagnosis Hydronephrosis with urinary obstruction due to renal calculus Bilateral nephrolithiasis documented in this encounter Care Teams Oxygraph Operator Relationship Specialty Start Date End Date Jayla Phoenix MD [address] [place] [address] PCP - General 08/07/17 documented as of this encounter
--- OUTSIDE RECORDS SUMMARY | 2024-08-23 08:05 | XMS_ITS | Encounter Summary ---
Author Organization [facility] Address [address] [place] [address] Phone Care Team Providers Care Loom Setter Name Role Phone Jayla Phoenix MD Primary Care Provider [phone] Encounter Details Date Type Department Care Team (Late st Contact Info) Description 07/04/2020 Orders Only [facility] Gastroenterology [address] [facility] Advanced Medicine 8th [place] [address] [place] [address] Corbin Duque MD [address] [place] [address] Crohn's disease of both small [...] file Legal Sex Male 7:18 PM DATABASE MANAGEMENT SPECIALIST Gender Identity Male 02/04/2019 10:52 AM CDT Sexual Orientation Straight 02/04/2019 10 :52 AM CDT documented as of this encounter Progress Notes * Bart Armendariz CMA - 07/04/2020 3:38 PM CST error BASE MANAGEMENT SPECIALIST documented in this encounter Plan of Treatment Not on file documented as of this encounter Visit Diagnoses Diagnosis Crohn's disease of both small and large intestine with complication (HCC) documented in this encounter Care Teams Loom Setter Relationship Specialty Start Date End Date Jayla Phoenix MD [address] [place] [id number] PCP - General 08/07/17 documented as of this encounter
--- OUTSIDE RECORDS SUMMARY | 2024-08-23 08:05 | XMS_ITS | Encounter Summary ---
Author Organization [facility] Address [address] [place] [address] Phone Care Team Providers Care Barrow Worker Name Role Phone Jayla Phoenix MD Primary Care Provider [phone] Encounter Details Date Type Department Care Team (Late st Contact Info) Description 05/04/2020 Telephone [facility] Urology [address] [facility] [address] [place] [address] Hipolito Reyes MD [address] [place] [address] Social History Tobacco Use Types Packs/Day Years Used Date Smoking Tobacco: Former Cigarettes 1.5 9 1 994 - 2003 Smokeless Tobacco: Never Alcohol Use Standard Drinks/Week Comments Not Currently 0 (1 standard drink = 0.6 oz pur e alcohol) Sex and Gender Information Value Date Recorded Sex Assigned at Not on file Legal Sex Male 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 CXR and urine culture from 04/28/2020 both were negative and not suggestive of any etiology of fever or night sweats - performed at [facility]. His last fever was in the hospital in late March 2020, and his last night sweat episode was April 25, without fever. He will complete the 24-hr urine collection, I will repeat kidney imaging in approximately 6 weeks from surgery, and I will plan to see him in June for follow-up. documented in this encounter Plan of Treatment Not on file documented as of this encounter Visit Diagnoses Not on filedocumented in this encounter Care Teams Barrow Worker Relationship Specialty Start Date End Date Jayla Phoenix MD [address] [place] [address] PCP - General 08/07/17 documented as of this encounter
--- OUTSIDE RECORDS SUMMARY | 2024-08-23 08:05 | XMS_ITS | Encounter Summary ---
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 Gender Identity Male 02/04/2019 10:52 AM CDT Sexual Orientation Straight 02/04/2019 10 :52 AM CDT documented as of this encounter Discharge Disposition Disposition Code Departure Means Destination Discharge to home or self care documented in this encounter Plan of Treatment Not on file documented as of this encounter Procedures Procedure Name Priority Date/Time Associated Diagnosis Comments EGFR Routine 05/18/2020 10:33 AM CDT Nephrolithiasis COMPREHENSIVE METABOLIC PANEL Routine 05/18/2020 10:33 AM CDT Nephrolithiasis documented in this encounter Results * eGFR (05/18/2020 10:33 AM CDT) eGFR 89 mL/min/1.7 3 m2 RYAN SEN Comment: Interpretive Data Reference Interval Normal ?>/= 90 mL/min/1.73m2 Mildly decreased* ? 60 - 89 mL/min/1.73m2 Mildly to moderately decreased ?45 - 59 mL/min/1.73m2 Moderately to severely decreased ??30 - 44 mL/min/1.73m2 Severely decreased ?15 - 29 mL/min/1.73m2 Kidney Failure ?< 15 ??mL/min/1.73m2 *Relative to young adult level If -Monegasque multiply value by 1.16. Estimated glomerular filtration rate is determined by [...] 70. Current interpretive data was last reviewed 2016. Blood specimen (specimen) 05/18/2020 10:33 AM CDT 05/18/2020 11:29 AM CDT us Hipolito Reyes MD LAB BLOOD ORDERABLE S Final Result RYAN CARDENASCH [address] [facility]. [place] [address] * Comprehensive metabolic panel (05/18/2020 10:33 AM [...] LAB BLOOD ORDERABLE S Final Result RYAN BILLYCH [address] [facility]. Department [place] [address] documented in this encounter Visit Diagnoses Diagnosis Nephrolithiasis Calculus of kidney documented in this encounter Care Teams Supervisor Motor Vehicle Assembly Relationship Specialty Start Date End Date Jayla Phoenix MD [address] [place] [address] PCP - General 08/07/17 documented as of this encounter
--- OUTSIDE RECORDS SUMMARY | 2024-08-23 08:05 | XMS_ITS | Encounter Summary ---
Author Organization [facility] Address [address] [place] [address] Phone Care Team Providers Care Internet Architect Name Role Phone Jayla Phoenix MD Primary Care Provider [phone] Encounter Details Date Type Department Care Team (Late st Contact Info) Description 05/09/2020 Orders Only [facility] Gastroenterology [address] [facility] Advanced Medicine 8th [place] [address] [place] [address] Corbin Duque MD [address] [place] [address] Social History Tobacco Use Types Packs/Day Years Used Date Smoking Tobacco: Former Cigarettes 1.5 9 1 994 - 2002 Smokeless Tobacco: Never Alcohol Use Standard Drinks/Week Comments Not Currently 0 (1 standard drink = 0.6 oz pur e alcohol) Sex and Gender Information Value Date Recorded Sex Assigned at Not on file 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 Sex Male 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 Gender Identity Male 02/04/2019 10:52 AM CDT Sexual Orientation Straight 02/04/2019 10 :52 AM CDT documented as of this encounter Ordered Prescriptions Prescription Sig Dispense Quantity Refills Last Filled Start Date End Date ustekinumab (STELARA) injectionIndicatio ns:Crohn's Disease Inject 1 mL (90 mg total) under the skin every 8 (eight) weeks 1 mL 1 05/09/2020 06/21/2020 documented in this encounter Plan of Treatment Not on file documented as of this encounter Visit Diagnoses Not on filedocumented in this encounter Care Teams Internet Architect Relationship Specialty Start Date End Date Jayla Phoenix MD [address] [place] [address] PCP - General 08/07/17 documented as of this encounter
--- OUTSIDE RECORDS SUMMARY | 2024-08-23 08:05 | XMS_ITS | Encounter Summary ---
Author Organization [facility] Healthcare Address [address] [place] [address] Care Team Providers Care Yarn Preparation Supervisor Name Role Phone Jayla Phoenix MD Primary Care Provider + [phone] Reason for Referral * Diagnostic Imaging (Routine) - Closed Specialty Diagnoses / Procedures Referred By Elina t Referred To Contact Diagnoses Fever of unknown origin Procedures XR Chest Pa Lateral 2 Views Hipolito Reyes MD Phone: tel: fax: External Order Referral ID Status Reason Start Date Expiration Date Visits Re quested Visits Authorized [id number] Closed 04/28/2020 05/28/2021 1 1 Reason for Visit * Diagnostic Imaging (Routine) - Closed Specialty Diagnoses / Procedures Referred By Elina senior Referred To Contact Diagnoses Fever of unknown origin Procedures XR Chest Pa Lateral 2 Views Hiploito Reyes MD Phone: tel: fax: External Order Referral ID Status Reason Start Date Expiration Date Visits Re quested Visits Authorized [id number] Closed 04/28/2020 05/28/2021 1 1 Encounter Details Date Type Department Care Team (Latest Contact Info) Description 06/01/2020 8:49 AM CDT - 06/01/2020 11:59 PM CDT Hospital Encounter [facility] Imaging [address] [place] [address] CarrolltonHipolito MD [address] [place] [address] Fever of unknown origin Discharge Disposition: Discharge to home or self [...] on file 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 Gender Identity Male 02/04/2019 10:52 AM CDT Sexual Orientation Straight 02/04/2019 10 :52 AM CDT documented as of this encounter Medications at Time of Discharge cyanocobalamin, vitamin B-12, 5,000 mcg tablet, sublingualIndica tions:Prevention of Vitamin B12 Deficiency [address] 1 tablet under the tongue treating plant supervisor before breakfast losartan-hydroch lorothiazide (HYZAAR) 100-25 mg per tabletIndication s:hypertension Take 1 tablet by mouth nightly 02/23/2019 multivitamin capsuleIndicatio ns:Vitamin Deficiency Prevention Take 1 capsule by mouth treating plant supervisor before breakfast acetaminophen 500 mg capsuleIndicatio ns:Pain [...] Name Priority Date/Time Associated Diagnosis Comments XR CHEST PA LATERAL 2 VIEWS Schedule Routine, Read Routine (OP Routine) 06/01/2020 8:56 AM CDT Fever of unknown origin documented in this encounter Results * XR Chest Pa Lateral 2 Views (06/01/2020 8:56 AM CDT) Anatomical Region Laterality Modality Body, Chest N/A Computed Radiogr aphy 06/01/2020 9:19 AM CDT Impressions 06/01/2020 9:19 AM CDT Comparison is made to prior chest radiograph 04/17/2020 The heart size is normal. The lungs are clear. Spinal fusion noted on the cervical spine. Electronically signed by: Brandon Cabezas M.D. Narrative 06/01/2020 9:19 AM CDT EXAMINATION: 2 view chest radiograph Procedure Note Brandon Cabezas MD - 06/01/2020 EXAMINATION: 2 view chest radiograph IMPRESSION: Comparison is made to prior chest radiograph 04/17/2020 The heart size is normal. The lungs are clear. Spinal fusion noted on the cervical spine. Electronically signed by: Brandon Cabezas M.D. Hipolito Reyes MD IMG XR PROCEDURES F inal Result documented in this encounter Visit Diagnoses Diagnosis Fever of unknown origin Fever, unspecified documented in this encounter Care Teams Yarn Preparation Supervisor Relationship Specialty Start Date End Date Jayla Phoenix MD [address] [place], [place] [id number] PCP - General 08/07/17 documented as of this encounter
--- OUTSIDE RECORDS SUMMARY | 2024-08-23 08:05 | XMS_ITS | Encounter Summary ---
Author Organization [facility] Address [address] [place] [address] Phone Care Team Providers Care Senior Clinical Project Manager Name Role Phone Jayla Phoenix MD Primary Care Provider [phone] Encounter Details Date Type Department Care Team (Late st Contact Info) Description 05/02/2020 Telephone [facility] Gastroenterology [address] [facility] Advanced Medicine 8th [place] [address] [place] [address] Corbin Duque MD [address] [place] [address] Social History Tobacco Use Types Packs/Day Years Used Date Smoking Tobacco: Former Cigarettes 1.5 9 1 994 - 2003 Smokeless Tobacco: Never Alcohol Use Standard Drinks/Week Comments Not Currently 0 (1 standard drink = 0.6 oz pur e alcohol) Sex and Gender Information Value Date Recorded Sex Assigned at Not on file 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 He said he has not had a fever forhe past 14 days. He is still feeling crappy and not feeling well. He would like for you to call him Called Kristian back and he said he had to do another urine cx and CXR for Dr. Reyes and he was onantibx for either the kidneys or the atelectasis seen, he is unsure. He said he isnt feeling well but not sure what his recent results were. I told him to call us back if they report a UTI/pyelo or pneumonia and we would have to delay his infusion possibly if he has a known infection documented in this encounter Plan of Treatment Not on file documented as of this encounter Visit Diagnoses Not on filedocumented in this encounter Care Teams Senior Clinical Project Manager Relationship Specialty Start Date End Date Jayla Phoenix MD [address] [place], [place] [id number] PCP - General 08/07/17 documented as of this encounter
--- OUTSIDE RECORDS SUMMARY | 2024-08-23 08:05 | XMS_ITS | Encounter Summary ---
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) (Primary Dx) Social History Tobacco Use Types Packs/Day Years Used Date Smoking Tobacco: Former Cigarettes 1.5 9 1 994 - 2003 Smokeless Tobacco: Never Alcohol Use Standard Drinks/Week Comments Not Currently 0 (1 standard drink = 0.6 oz pur e alcohol) Sex and Gender Information Value Date Recorded Sex Assigned at Not on file Legal Sex Male 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 Gender Identity Male 02/04/2019 10:52 AM CDT Sexual Orientation Straight 02/04/2019 10 :52 AM CDT documented as of this encounter Ordered Prescriptions Prescription Sig Dispense Quantity Refills Last Filled Start Date End Date ergocalciferol (VITAMIN D) 50,000 unit capsuleIndications :Vitamin D Deficiency Take 1 capsule (50,000 Units total) by mouth once a week 4 capsule 2 05/02/2020 0 documented in this encounter Progress Notes * Bart Armendariz CMA - 05/02/2020 10:31 AM CDT Refill vitamin d documented in this encounter Plan of Treatment Not on file documented as of this encounter Visit Diagnoses Diagnosis 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
--- OUTSIDE RECORDS SUMMARY | 2024-08-23 08:05 | XMS_ITS | Encounter Summary ---
Author Organization [facility] Address [address] [place] [address] Phone Care Team Providers Care Van Driver Name Role Phone Jayla Phoenix MD Primary Care Provider [phone] Encounter Details Date Type Department Care Team (Late st Contact Info) Description 06/10/[address] 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 Below is a summary of our discussion and what I sent to him on Seerhart. Fuozia, can you please have him visit with the furnace caretaker regarding kidney stone prevention? Good urine volume. Keep up the good work drinking fluids. Ideally you should make at least 2.5 liters of fluid, so to do this you need to drink at least 3 liters of fluid (water is best and is ideally the majority of it, but fluid is ultimately fluid). High urine oxalate. Foods that have a lot of oxalate are nuts (all nuts including almonds, cashews,peanuts), spinach, black tea, and chocolate. Please try to moderate your intake of these foods. -Oxalate binds with calcium, and ideally this happens in your intestine as opposed to being absorbed into your body and then getting processed by the kidneys. If you can eat calcium- containing foods suchas a serving or two of dairy with meals, or take a calcium supplement such as Tums or CitraCal withmeals that will help keep the oxalate from making it to your kidneys. -Your prior bowel resection and Crohn's disease may be contributing to this high oxalate level, so trying these dietary measures is helpful. High salt (sodium) intake. Please try to keep sodium intake to under 2000 mg per day. Be sure to look at nutrition labels to try to find lower salt alternatives. Be sure to eat plenty of fresh fruit and vegetables (preferably at least 4-6 servings per day), as these tend to have lots of citrates in them which help bind up stone-forming elements in your urine. documented in this encounter Plan of Treatment Not on file documented as of this encounter Visit Diagnoses Not on filedocumented in this encounter Care Teams Van Driver Relationship Specialty Start Date End Date Jayla Phoenix MD [address] [place] [address] PCP - General 08/07/17 documented as of this encounter
--- OUTSIDE RECORDS SUMMARY | 2024-08-23 08:05 | XMS_ITS | Encounter Summary ---
Author Organization [facility] Address [address] [place] [address] Phone Care Team Providers Care Talent Agent Name Role Phone Jayla Phoenix MD Primary Care Provider [phone] Encounter Details Date Type Department Care Team (Late st Contact Info) Description 05/18/2020 10:00 AM CDT Office Visit [facility] Gastroenterology [address] [facility] Medical Office Building [address] [place] [address] Corbin Duque MD [address] [place] [address] Crohn's disease of both small [...] on file 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 Gender Identity Male 02/04/2019 10:52 AM CDT Sexual Orientation Straight 02/04/2019 10 :52 AM CDT documented as of this encounter Last Filed Vital Signs Vital Sign Reading Time Taken Comments Blood Pressure 136/94 05/18/2020 9:38 AM CDT Pulse 92 05/18/2020 9:38 AM CDT Temperature 36.1 ??C (97 ??F) 05/18/2020 9:38 AM CDT Respiratory Rate - - Oxygen Saturation - - Inhaled Oxygen Concentration - - Weight 101.2 kg (223 lb 1.6 oz) 05/18/2020 9:38 AM CDT Height 188 cm (6' 2 ) 05/18/2020 9:38 AM CDT Body Mass Index 28.64 05/18/2020 9:38 AM CDT documented in this encounter Patient Instructions * Patient Instructions* Michelle Hazel RN - 05/18/2020 10:00 AM CDT Continue stelara Safety labs every 3 months Follow up in 3 months documented in this encounter Progress Notes * Stefany Zuniga NP - 05/18/2020 10:00 AM CDT Subjective NAME: Kristian Vasques : 1970 DATE: Referred here Primary Care Physician: Jayla Phoenix MD Consult requested by: Jayla Phoenix MD Chief Complaint: Crohn's disease HPI Kristian Vasques, is a 49 y.o.male who presents for follow up penetrating ileocolonic Crohn's disease after recent start of Stelara 05/06. Prior to this he had been on no therapy since his IC resection in 2008 secondary to small bowel obstruction. Prior to his resection he had been on pentasa. He was diagnosed in 2000. Recent MRE in February showed active disease and fistula at the anastamosis. Colonoscopy in March showed active inflammation as well. Currently feeling well. One stool daily on average. Denies any abdomina pain. Denies any hematochezia. Denies any nausea or vomiting. Recently notedto have kidney stones on imaging and had surgery for this at the end of March. Patient Active Problem List Diagnosis Date Noted ??? High risk medications (not anticoagulants) long-term use 05/18/2020 ??? Bilateral nephrolithiasis 04/05/2020 Added automatically from request for surgery [id number] ??? 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 Crohn's disease of both small and [...] 02/02/2019 Added automatically from request for surgery [id number] ??? Cervical radiculopathy 02/02/2019 Added automatically from request for surgery [id number] ??? Fusion of spine of cervical region 02/02/2019 Added automatically from request for surgery [id number] ??? Cervical radiculopathy at C7 01/23/2019 ??? Cervical pain (neck) 09/03/2017 Past Medical History: Diagnosis Date ??? Crohn's disease ([facility]) 2000 ??? DDD (degenerative disc disease), cervical ??? Gastric reflux ??? HTN (hypertension) Past Surgical History: Procedure Laterality Date ??? ANTERIOR CERVICAL DISCECTOMY W/ FUSION 2017 hardware removal 02/2019 ??? BOWEL RESECTION 2008 [...] 1993 Quit date: 2002 Years since quittin.7 ??? Smokeless tobacco: Never Used Substance and Sexual Activity ??? Alcohol use: Not Currently ??? Drug use: No ??? Sexual activity: Not on file Lifestyle ??? Physical activity Days per week: Not on file Minutes per session: Not on file ??? Stress: Not on file Relationships ??? Social connections Talks on phone: Not on file Gets together: Not on file Attends pres[employer]beterian service: Not on file Active member of [...] sublingual Place 1 tablet under the tongue manager clinical research before breakfast ??? ergocalciferol (VITAMIN D) 50,000 unit capsule Take 1 capsule (50,000 Units total) by mouth once a week 4 capsule 2 ??? losartan-hydrochlorothiazide (HYZAAR) 100-25 mg per tablet Take 1 tablet by mouth nightly ??? melatonin 5 mg tablet Take 5 mg by mouth nightly as needed ??? multivitamin capsule Take 1 capsule by mouth manager clinical research before breakfast ??? ustekinumab (STELARA) injection Inject 1 mL (90 mg total) under the skin every 8 (eight) weeks 1 mL 1 ??? acetaminophen 500 mg capsule Take 2 capsules (1,000 mg total) by mouth every 6 (six) hours For pain (Patient not taking: Reported on 05/18/2020) 120 tablet 0 ??? cholestyramine-aspartame 4 gram powder Take 1 Scoop by mouth 2 (two) times a day (Patient not taking: Reported on 05/18/2020) 1 Can 1 ??? diphenhydrAMINE (BENADRYL) 25 mg capsule Take [...] Reported on 05/18/2020) 10 tablet 0 ??? ustekinumab (STELARA) 130 mg/26 mL solution Infuse 104 mL (520 mg total) into a venous catheteronce for 1 dose 104 mL 0 No current facility-administered medications for [...] Psychiatric/Behavioral: Negative. Breast: Negative. Vital Signs: BP 136/94 Pulse 92 Temp 36.1 ??C (97 ??F) Ht 188 cm (6' 2 ) Wt 101.2 kg (223 lb 1.6 oz) BMI 28.64 kg/m?? Physical Exam: GENERAL: Well-appearing, in no [...] normal insight, memory, affect, and orientation Labs: Admission on 04/12/2020, Discharged on 04/18/2020 Component Date Value Ref Range Status ??? Juan, indirect 04/12/2020 Negative Final ??? ABO Rh 04/12/2020 O Positive Final ??? Report 04/12/2020 Final Value:Final Report: No growth ??? Sodium 04/13/2020 137 135 - 145 mmol/L Final ??? Potassium, pl 04/13/2020 4.3 3.3 - 4.9 mmol/L Final ??? Chloride 04/13/2020 97 97 - 110 mmol/L Final ??? CO2 04/13/2020 24 22 - 32 mmol/L Final ??? Anion gap 04/13/2020 16* 2 - 15 mmol/L Final ??? BUN 04/13/2020 23 8 - 25 mg/dL Final ??? Creatinine 04/13/2020 1.20 0.80 - 1.30 mg/dL Final ??? Glucose 04/13/2020 131 70 - 199 mg/dL Final ??? Calcium 04/13/2020 8.9 8.5 - 10.3 mg/dL Final ??? WBC 04/13/2020 9.5 3.8 - 9.9 K/cumm Final ??? Hgb 04/13/2020 13.1 13.0 - 17.5 g/dL Final ??? Hct 04/13/2020 39.7 38.9 - 50.3 % Final ??? Plt 04/13/2020 307 150 - 400 K/cumm Final ??? MPV 04/13/2020 9.5 9.1 - 12.3 fL Final ??? RBC 04/13/2020 4.48 4.30 - 5.80 M/cumm Final ??? MCV 04/13/2020 88.6 81.3 - 96.4 fL Final ??? MCH 04/13/2020 29.2 27.1 - 33.3 pg Final ??? MCHC 04/13/2020 33.0 32.3 - 35.7 g/dL Final ??? RDW CV 04/13/2020 13.5 11.1 - 14.9 % Final ??? RDW SD 04/13/2020 44.2 35.7 - 48.1 fL Final ??? NRBC abs 04/13/2020 0.00 0.00 - 0.01 K/cumm Final ??? Sodium 04/13/2020 137 135 - 145 mmol/L Final ??? Potassium, pl 04/13/2020 3.9 3.3 - 4.9 mmol/L Final ??? Chloride 04/13/2020 105 97 - 110 mmol/L Final ??? CO2 04/13/2020 23 22 - 32 mmol/L Final ??? Anion gap 04/13/2020 9 2 - 15 mmol/L Final ??? BUN 04/13/2020 23 8 - 25 mg/dL Final ??? Creatinine 04/13/2020 1.30 0.80 - 1.30 mg/dL Final ??? Glucose 04/13/2020 116 70 - 199 mg/dL Final ??? Calcium 04/13/2020 8.9 8.5 - 10.3 mg/dL Final ??? WBC 04/13/2020 8.4 3.8 - 9.9 K/cumm Final ??? Hgb 04/13/2020 12.6* 13.0 - 17.5 g/dL Final ??? Hct 04/13/2020 37.9* 38.9 - 50.3 % Final ??? Plt 04/13/2020 282 150 - 400 K/cumm Final ??? MPV 04/13/2020 9.7 9.1 - 12.3 fL Final ??? RBC 04/13/2020 4.27* 4.30 - 5.80 M/cumm Final ??? MCV 04/13/2020 88.8 81.3 - 96.4 fL Final ??? MCH 04/13/2020 29.5 27.1 - 33.3 pg Final ??? MCHC 04/13/2020 33.2 32.3 - 35.7 g/dL Final ??? RDW CV 04/13/2020 13.9 11.1 - 14.9 % Final ??? RDW SD 04/13/2020 45.1 35.7 - 48.1 fL Final ??? NRBC abs 04/13/2020 0.00 0.00 - 0.01 K/cumm Final ??? WBC 04/14/2020 9.3 3.8 - 9.9 K/cumm Final ??? Hgb 04/14/2020 11.5* 13.0 - 17.5 g/dL Final ??? Hct 04/14/2020 34.2* 38.9 - 50.3 % Final ??? Plt 04/14/2020 242 150 - 400 K/cumm Final ??? MPV 04/14/2020 9.8 9.1 - 12.3 fL Final ??? RBC 04/14/2020 3.81* 4.30 - 5.80 M/cumm Final ??? MCV 04/14/2020 89.8 81.3 - 96.4 fL Final ??? MCH 04/14/2020 30.2 27.1 - 33.3 pg Final ??? MCHC 04/14/2020 33.6 32.3 - 35.7 g/dL Final ??? RDW CV 04/14/2020 13.8 11.1 - 14.9 % Final ??? RDW SD 04/14/2020 45.2 35.7 - 48.1 fL Final ??? NRBC abs 04/14/2020 0.00 0.00 - 0.01 K/cumm Final ??? Sodium 04/14/2020 135 135 - 145 mmol/L Final ??? Potassium, pl 04/14/2020 3.9 3.3 - 4.9 mmol/L Final ??? Chloride 04/14/2020 104 97 - 110 mmol/L Final ??? CO2 04/14/2020 23 22 - 32 mmol/L Final ??? Anion gap 04/14/2020 8 2 - 15 mmol/L Final ??? BUN 04/14/2020 16 8 - 25 mg/dL Final ??? Creatinine 04/14/2020 1.32* 0.80 - 1.30 mg/dL Final ??? Glucose 04/14/2020 129 70 - 199 mg/dL Final ??? Calcium 04/14/2020 8.3* 8.5 - 10.3 mg/dL Final ??? Magnesium 04/14/2020 1.6 1.4 - 2.5 mg/dL Final ??? Phosphorus, pl 04/14/2020 2.7 2.3 - 4.5 mg/dL Final ??? Report 04/15/2020 Final Value:Final Report: No growth ??? Report 04/15/2020 Final Value:Final Report: No growth ??? Report 04/15/2020 Final Value:Final Report: No growth ??? WBC 04/15/2020 10.6* 3.8 - 9.9 K/cumm Final ??? Hgb 04/15/2020 11.3* 13.0 - 17.5 g/dL Final ??? Hct 04/15/2020 33.0* 38.9 - 50.3 % Final ??? Plt 04/15/2020 254 150 - 400 K/cumm Final ??? MPV 04/15/2020 9.8 9.1 - 12.3 fL Final ??? RBC 04/15/2020 3.77* 4.30 - 5.80 M/cumm Final ??? MCV 04/15/2020 87.5 81.3 - 96.4 fL Final ??? MCH 04/15/2020 30.0 27.1 - 33.3 pg Final ??? MCHC 04/15/2020 34.2 32.3 - 35.7 g/dL Final ??? RDW CV 04/15/2020 13.3 11.1 - 14.9 % Final ??? RDW SD 04/15/2020 43.0 35.7 - 48.1 fL Final ??? NRBC abs 04/15/2020 0.00 0.00 - 0.01 K/cumm Final ??? Sodium 04/15/2020 135 135 - 145 mmol/L Final ??? Potassium, pl 04/15/2020 3.7 3.3 - 4.9 mmol/L Final ??? Chloride 04/15/2020 106 97 - 110 mmol/L Final ??? CO2 04/15/2020 21* 22 - 32 mmol/L Final ??? Anion gap 04/15/2020 8 2 - 15 mmol/L Final ??? BUN 04/15/2020 13 8 - 25 mg/dL Final ??? Creatinine 04/15/2020 1.23 0.80 - 1.30 mg/dL Final ??? Glucose 04/15/2020 149 70 - 199 mg/dL Final ??? Calcium 04/15/2020 8.6 8.5 - 10.3 mg/dL Final ??? Sodium 04/16/2020 136 135 - 145 mmol/L Final ??? Potassium, pl 04/16/2020 3.6 3.3 - 4.9 mmol/L Final ??? Chloride 04/16/2020 103 97 - 110 mmol/L Final ??? CO2 04/16/2020 23 22 - 32 mmol/L Final ??? Anion gap 04/16/2020 10 2 - 15 mmol/L Final ??? BUN 04/16/2020 10 8 - 25 mg/dL Final ??? Creatinine 04/16/2020 1.17 0.80 - 1.30 mg/dL Final ??? Glucose 04/16/2020 123 70 - 199 mg/dL Final ??? Calcium 04/16/2020 8.7 8.5 - 10.3 mg/dL Final ??? WBC 04/16/2020 9.7 3.8 - 9.9 K/cumm Final ??? Hgb 04/16/2020 11.3* 13.0 - 17.5 g/dL Final ??? Hct 04/16/2020 32.7* 38.9 - 50.3 % Final ??? Plt 04/16/2020 259 150 - 400 K/cumm Final ??? MPV 04/16/2020 9.7 9.1 - 12.3 fL Final ??? RBC 04/16/2020 3.75* 4.30 - 5.80 M/cumm Final ??? MCV 04/16/2020 87.2 81.3 - 96.4 fL Final ??? MCH 04/16/2020 30.1 27.1 - 33.3 pg Final ??? MCHC 04/16/2020 34.6 32.3 - 35.7 g/dL Final ??? RDW CV 04/16/2020 13.3 11.1 - 14.9 % Final ??? RDW SD 04/16/2020 42.4 35.7 - 48.1 fL Final ??? NRBC abs 04/16/2020 0.00 0.00 - 0.01 K/cumm Final ??? Report 04/17/2020 Final Value:Final Report: No growth ??? Report 04/17/2020 Final Value:Final Report: No growth ??? Report 04/17/2020 Final Value:Final Report: No growth ??? Sodium 04/17/2020 137 135 - 145 mmol/L Final ??? Potassium, pl 04/17/2020 3.9 3.3 - 4.9 mmol/L Final ??? Chloride 04/17/2020 103 97 - 110 mmol/L Final ??? CO2 04/17/2020 24 22 - 32 mmol/L Final ??? Anion gap 04/17/2020 10 2 - 15 mmol/L Final ??? BUN 04/17/2020 13 8 - 25 mg/dL Final ??? Creatinine 04/17/2020 1.10 0.80 - 1.30 mg/dL Final ??? Glucose 04/17/2020 126 70 - 199 mg/dL Final ??? Calcium 04/17/2020 8.7 8.5 - 10.3 mg/dL Final ??? WBC 04/17/2020 8.8 3.8 - 9.9 K/cumm Final ??? Hgb 04/17/2020 11.0* 13.0 - 17.5 g/dL Final ??? Hct 04/17/2020 32.2* 38.9 - 50.3 % Final ??? Plt 04/17/2020 305 150 - 400 K/cumm Final ??? MPV 04/17/2020 9.5 9.1 - 12.3 fL Final ??? RBC 04/17/2020 3.68* 4.30 - 5.80 M/cumm Final ??? MCV 04/17/2020 87.5 81.3 - 96.4 fL Final ??? MCH 04/17/2020 29.9 27.1 - 33.3 pg Final ??? MCHC 04/17/2020 34.2 32.3 - 35.7 g/dL Final ??? RDW CV 04/17/2020 13.5 11.1 - 14.9 % Final ??? RDW SD 04/17/2020 43.6 35.7 - 48.1 fL Final ??? NRBC abs 04/17/2020 0.00 0.00 - 0.01 K/cumm Final Pre-Admission Testing on 04/08/2020 Component Date Value Ref Range Status ??? Sodium 04/08/2020 139 135 - 145 mmol/L Final ??? Potassium, pl 04/08/2020 4.1 3.3 - 4.9 mmol/L Final ??? Chloride 04/08/2020 101 97 - 110 mmol/L Final ??? CO2 04/08/2020 28 22 - 32 mmol/L Final ??? Anion gap 04/08/2020 10 2 - 15 mmol/L Final ??? BUN 04/08/2020 12 8 - 25 mg/dL Final ??? Creatinine 04/08/2020 1.05 0.80 - 1.30 mg/dL Final ??? Glucose 04/08/2020 91 70 - 199 mg/dL Final ??? Calcium 04/08/2020 9.6 8.5 - 10.3 mg/dL Final ??? Bilirubin, total 04/08/2020 0.5 0.1 - 1.2 mg/dL Final ??? Protein, pl 04/08/2020 7.1 6.5 - 8.5 g/dL Final ??? Albumin 04/08/2020 4.2 3.5 - 5.0 g/dL Final ??? Alk phos 04/08/2020 92 40 - 130 Units/L Final ??? ALT 04/08/2020 51 7 - 55 Units/L Final ??? AST 04/08/2020 32 10 - 50 Units/L Final ??? WBC 04/08/2020 5.4 3.8 - 9.9 K/cumm Final ??? Hgb 04/08/2020 13.8 13.0 - 17.5 g/dL Final ??? Hct 04/08/2020 40.8 38.9 - 50.3 % Final ??? Plt 04/08/2020 329 150 - 400 K/cumm Final ??? MPV 04/08/2020 9.6 9.1 - 12.3 fL Final ??? RBC 04/08/2020 4.68 4.30 - 5.80 M/cumm Final ??? MCV 04/08/2020 87.2 81.3 - 96.4 fL Final ??? MCH 04/08/2020 29.5 27.1 - 33.3 pg Final ??? MCHC 04/08/2020 33.8 32.3 - 35.7 g/dL Final ??? RDW CV 04/08/2020 13.6 11.1 - 14.9 % Final ??? RDW SD 04/08/2020 42.9 35.7 - 48.1 fL Final ??? NRBC abs 04/08/2020 0.00 0.00 - 0.01 K/cumm Final ??? Juan, indirect 04/08/2020 Negative Final ??? ABO Rh 04/08/2020 O Positive Final ??? Report 04/08/2020 Final Value:Final Report: Less than 100,000 colonies/mL (clinically insignificant growth based on current clinical standards) ??? Organism 04/08/2020 (CLINICALLY INSIGNIFICANT GROWTH Final ??? COVID-19 Coronavirus RNA 04/08/2020 Not Detected Final Lab on 03/30/2020 Component Date Value Ref Range Status ??? COVID-19 Coronavirus RNA 03/30/2020 Not Detected Final Office Visit on 03/16/2020 Component Date Value Ref Range Status ??? Glucose, ur, POC 03/16/2020 100.* Negative mg/dL Final ??? Ketones, ur, POC 03/16/2020 Negative Negative Final ??? Blood, ur, POC 03/16/2020 Negative Negative Final ??? pH, ur, POC 03/16/2020 5.0 5.0 - 8.0 Final ??? Protein, ur, POC 03/16/2020 Negative Negative Final ??? Nitrite, ur, POC 03/16/2020 Negative Negative Final ??? Leukocytes, ur, POC 03/16/2020 Trace* Negative Final ??? Lot Number 03/16/2020 0 Final Imaging Review MRE 02/2020 1. 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 ?? 2. Suspected obstructing 1.2 cm left ureteral calculus at the ureteropelvic junction. ASSESSMENT and PLAN: Crohn's disease of both small and large intestine with other complication (CMS/HCC) Penetrating ileocolonic Crohn's disease since 2000. Resection in 2008. Was on no therapy afterward.MRE in February showed enterocolic fistula at the level of the IC anastamosis and active inflammation. Subsequent colonoscopy 04/04/2020 showed ulcers in the TI. Just started stelara on 05/06. Doing well..One stool daily. Denies any abdominal pain. Denies any hematochezia. Occ mucous in stool. -continue stelara -continue to monitor safety labs -follow up in 3 months -will plan to repeat colonoscopy and MRE in 4-5 months to assess for response to stelara High risk medications (not anticoagulants) long-term use High risk medications: As with all patients [...] withany questions regarding new symptom development. No follow-ups on file. Cosigned by Corbin Duque MD at 05/18/2020 5:04 PM CDT Associated attestation - Corbin Duque MD - 05/18/2020 5:04 PM CDT I have seen and examined the patient in conjunction with the Nurse Practitioner. Please refer to the MOLDING PROCESS TECHNICIAN note for PMH and ROS. History: Penetrating IC CD now s/p induction with Stelara. He is doing well without obstructive symptoms. Physical Exam: GENERAL: Well-appearing, in no acute [...] memory, affect, and orientation Lab/Radiology/Diagnostics Review: None currently. Assessment/Plan At this point patient with active CD doing well following induction with stelara. At this point wait and watch as he is doing well. Plan is to re image or scope 4 - 6 mo post induction. NB recent renal stones required intervention. Corbin Duque MD, FACP, FACG, AGAJUSTEN Guy biometric technician [facility]ology [facility] [address] [place] [address] Academic office [phone] ] documented in this encounter Miscellaneous Notes * Assessment & Plan Note - Stefany Zuniga NP - 05/18/2020 10:24 AM CDT Associated Problem(s): High risk medications (not anticoagulants) long-term use High risk medications: As with all patients [...] us withany questions regarding new symptom development. * Assessment & Plan Note - Stefany Zuniga NP - 05/18/2020 10:21 AM CDT Associated Problem(s): Crohn's disease of both small and large intestine with other complication (HCC) Penetrating ileocolonic Crohn's disease since 2000. Resection in 2008. Was on no therapy afterward.MRE in February showed enterocolic fistula at the level of the IC anastamosis and active inflammation. Subsequent colonoscopy 04/04/2020 showed ulcers in the TI. Just started stelara on 05/06. Doing well..One stool daily. Denies any abdominal pain. Denies any hematochezia. Occ mucous in stool. -continue stelara -continue to monitor safety labs -follow up in 3 months -will plan to repeat colonoscopy and MRE in 4-5 months to assess for response to stelara documented in this encounter Plan of Treatment Not on file documented as of this encounter Visit Diagnoses Diagnosis 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)- Primary High risk medications (not anticoagulants) long-term use Encounter for long-term (current) use of other medications documented in this encounter Care Teams Talent Agent Relationship Specialty Start Date End Date Jayla hPoenix MD [address] [place] [address] PCP - General 08/07/17 documented as of this encounter
--- OUTSIDE RECORDS SUMMARY | 2024-08-23 08:06 | XMS_ITS | Encounter Summary ---
Author Organization [facility] Address [address] [place] [address] Phone Care Team Providers Care Second Operator Name Role Phone Jayla Phoenix MD Primary Care Provider [phone] Reason for Visit * Consultation (Routine) - Closed Specialty Diagnoses / Procedures Referred By Contjaycee t Referred To Contact Urology Diagnoses Kidney stone on left side Hydronephrosis with ureteropelvic junction (UPJ) obstruction Corbin Duque MD [address] [place] [address] Phone: tel: fax: [facility] (All Locations) Referral ID Status Reason Start Date Expiration Date V isits Requested Visits Authorized [id number] Closed Specialty Services Required 03/02/2020 09/11/2021 99 99 Encounter Details Date Type Department Care Team (Late st Contact Info) Description 04/19/2020 1:00 PM CDT Office Visit [facility] Urology [address] [place] [address] Hipolito Reyes MD [address] [place] [address] Bilateral nephrolithiasis (Primary Dx) Social History Tobacco Use Types Packs/Day Years Used Date Smoking Tobacco: Former Cigarettes 1.5 9 1 994 - 2003 Smokeless Tobacco: Never Alcohol Use Standard Drinks/Week Comments Not Currently 0 (1 standard drink = 0.6 oz pur e alcohol) Sex and Gender Information Value Date Recorded Sex Assigned at Not on file 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 His Antegrade nephrostogram demonstrated passage of contrast from the kidney down into the bladder. It did reveal those areas of mineral seem on CT, which may represent embedded stone material. I have removed his nephrostomy tube and placed a dry gauze dressing over it. The surgical site appears clean and is beginning to heal nicely. It is not inflamed, erythematous, or foul-smelling. It will likely have leakage for at least a couple of days while it seals up. He did have a temperature of 100.6F last night measured at home, and is taking antibiotics. This appears to be due to atelectasis given the x-ray findings and his negative culture findings. If these persist I have asked him to contact me, and for now to complete his course of antibiotics. Follow-up in 6 weeks for ultrasound, complete 24-hr urine collection, and RTC 3 months. documented in this encounter Plan of Treatment Not on file documented as of this encounter Visit Diagnoses Diagnosis Bilateral nephrolithiasis- Primary documented in this encounter Care Teams Second Operator Relationship Specialty Start Date End Date Jayla Phoenix MD [address] [place] [address] PCP - General 08/07/17 documented as of this encounter
--- OUTSIDE RECORDS SUMMARY | 2024-08-23 08:06 | XMS_ITS | Encounter Summary ---
Author Organization [facility] Address [address] [place] [address] Phone Care Team Providers Care Assembler Gold Frame Name Role Phone Jayla Phoenix MD Primary Care Provider [phone] Encounter Details Date Type Department Care Team (Late st Contact Info) Description 04/15/2020 Orders Only [facility] Urology [address] [place] [address] Hipolito Reyes MD [address] [place] [address] Hydronephrosis with urinary obstruction due to renal calculus (Primary Dx) Social History Tobacco Use Types Packs/Day Years Used Date Smoking Tobacco: Former Cigarettes 1.5 9 1 994 - 2003 Smokeless Tobacco: Never Alcohol Use Standard Drinks/Week Comments Not Currently 0 (1 standard drink = 0.6 oz pur e alcohol) Sex and Gender Information Value Date Recorded Sex Assigned at Not on file Legal Sex Male 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
--- OUTSIDE RECORDS SUMMARY | 2024-08-23 08:06 | XMS_ITS | Encounter Summary ---
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 Role Phone Jayla Phoenix MD Primary Care Provider [phone] Reason for Referral * Diagnostic Imaging (Routine) - Closed Specialty Diagnoses / Procedures Referred By Elina senior Referred To Contact Radiology Diagnoses Other acute kidney failure (HCC) Procedures IR Antegrade Nephrostogram Existing Access Left Diane Degroot NP [address] [facility] [address] [place] [address] Phone: tel: fax: [address] [phone] Referral ID Status Reason Start Date Expiration Date Visits Re quested Visits Authorized [id number] Closed 04/15/2020 05/15/2021 1 1 Encounter Details Date Type Department Care Team (Latest Contact Info) Description 04/12/2020 10:09 AM CDT - 04/18/2020 1:54 PM CDT Hospital Encounter [address] [id number] Hipolito Reyes MD [address] [place] [address] Preoperative testing (Primary Dx); Bilateral nephrolithiasis; Other acute kidney failure ([facility]/HCC) Discharge Disposition: Discharge to home or self [...] file 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 Gender Identity Male 02/04/2019 10:52 AM CDT Sexual Orientation Straight 02/04/2019 10 :52 AM CDT documented as of this encounter Last Filed Vital Signs Vital Sign Reading Time Taken Comments Blood Pressure 136/93 04/18/2020 11:12 AM CDT Pulse 92 04/18/2020 11:12 AM CDT Temperature 36.9 ??C (98.4 ??F) 04/18/2020 11:12 AM C DT Respiratory Rate 16 04/18/2020 11:12 AM CDT Oxygen Saturation 95% 04/18/2020 11:12 AM CDT Inhaled Oxygen Concentration - - Weight 98.4 kg (217 lb) 04/12/2020 9:00 PM CDT Height 188 cm (6' 2 ) 04/12/2020 9:00 PM CDT Body Mass Index 27.86 04/12/2020 9:00 PM CDT documented in this encounter Discharge Diagnoses Diagnosis Calculus of kidney - CALCULUS OF KIDNEY Crohn's disease, unspecified, without complications (HCC) - CROHN'S DISEASE, UNSPECIFIED, WITHOUT COMPLICATIONS Essential (primary) hypertension - ESSENTIAL (PRIMARY) HYPERTENSION Unspecified essential hypertension Gastro-esophageal reflux disease without esophagitis - GASTRO-ESOPHAGEAL REFLUX DISEASE WITHOUT ESOPHAGITIS Personal history of urinary calculi - PERSONAL HISTORY OF URINARY CALCULI Personal history of nicotine dependence - PERSONAL HISTORY OF NICOTINE DEPENDENCE Acquired absence of other specified parts of digestive tract - ACQUIRED ABSENCE OF OTHER SPECIFIED PARTS OF DIGESTIVE TRACT Arthrodesis status - ARTHRODESIS STATUS documented in this encounter Discharge Summaries * Diane Degroot NP - 04/18/2020 9:08 AM CDT Inpatient Discharge Summary BRIEF OVERVIEW Admitting Provider: Hipolito Reyes MD Discharge Provider: Hipolito Reyes MD Primary Care Physician at Discharge: Jayla Phoenix MD [phone] Admission Date: 04/12/2020 Discharge Date: 04/18/2020 Admission Location: [facility] Problems/Diagnoses: Principal Problem: Bilateral nephrolithiasis Resolved Problems: No resolved hospital problems. DETAILS OF HOSPITAL STAY Presenting Problem/History of Present Illness: 49 y.o. male Who has a long hx of nephrolithiasis. He has previously undergone SWL and has had a ureteral stent before. He recently was diagnosed with a 1.4 cm renal stone in the left kidney and a 1 cm renal stone in the right, there was no hydronephrosis. After consultation with Dr. Reyes on treatment options, he has decided to start with treatment of the larger, left renal stone and has now presented for left PCNL Hospital Course: Patient underwent left PCNL on 04/12/[address] Hipolito Pena*, and was admitted to Urologic Surgery after stabilization in the PACU. See full Operative report for details. Urine culture sent to the lab from the OR. IV fluids for hydration, IV antibiotics administered, vital signs closely monitored. Pain controlled with multimodal agents. Left PCN drain in place draining blood tinged urine. Means catheter in place draining clear yellow. Allowed a regular diet. POD#1 Means catheter removed and pt voided without difficulty. PVR with bladder scan done to ensure adequate emptying of the bladder. Diet advanced to regular and pt tolerated well. Ambulating at baseline. Pain controlled on oral agents. CT abdomen and pelvis done showing some residual 9 mm stone fragments remaining in the lower pole of the left kidney. The pt was made NPO at midnight and he returned to the OR the next day for treatment of the remainder of left renal stone burden. He returned to the urology floor after stabilization in the PACU. He was allowed a regular diet. Pain controlled with oral agents, left PCN draining blood medium tinged urine. On 04/15 he fevered to 100.6. Urine and blood cultures were obtained he was started on ceftriaxone. This plan was continued on 04/16. On 04/17, he fevered to 38.6. Blood and urine cultures were again obtained and a chest xray was performed which was not concerningfor PNA. On 04/18, he was afebrile and had no growth from any blood or urine culture. He was transitioned from ceftriaxone IV to Keflex PO. He was felt to be medically appropriate for discharge and was in agreement with this plan. Strict return precautions were given. He will follow up in IR tomorrow for nephrostogram. Active Issues Requiring Follow-up: Left PCN and Stent removal and treatment of right renal stone Test Results Pending at Discharge: Pending Labs Order Current Status Blood culture Blood Preliminary result Blood culture Blood Preliminary result Blood culture Blood Antecubital, left Preliminary result Blood culture Blood Antecubital, right Preliminary result Urine culture Urine, nephrostomy tube Preliminary result Operative Procedures Performed: Procedure(s): SECOND LOOK PERCUTANEOUS NEPHROLITHOTOMY Other Procedures: none Pertinent Test Results: none Discharge Details Physical Exam at Discharge: Discharge Condition: good Pulse: 78 Resp: 18 BP: 130/87 Temp: 36.9 ??C (98.4 ??F) Weight: 98.4 kg (217 lb) Pertinent Exam Findings at Discharge: Physical Exam Constitutional: NAD Eye: EOMI Cardiovascular: Skin and extremities wwp Pulmonary/Chest: Effort normal. No accessory muscle usage. No respiratory distress. Abdominal: Soft. NTND : voiding clear yellow urine. Left PCN with clear red urine. Neurological: alert and oriented to person, place, and time. Discharge Disposition: Discharge to home or self long term to self care Code Status at Discharge: full code Discharge Instructions: See AVS Discharge Medications: Current Medications TAKE these medications acetaminophen 500 mg capsule Take 2 capsules (1,000 mg total) by mouth every 6 (six) hours For pain For: pain cephalexin 500 mg capsule Take 1 capsule (500 mg total) by mouth 4 (four) times a day for 2 days For: Urinary Tract/Genitourinary Infection Commonly known as: KEFLEX cholestyramine-aspartame 4 gram powder Take 1 Scoop by mouth 2 (two) times a day For: for bowel resection cyanocobalamin (vitamin B-12) 5,000 mcg tablet, sublingual Place 1 tablet under the tongue education program associate before breakfast For: prevention of vitamin B12 deficiency diphenhydrAMINE 25 mg capsule Take 25 mg by mouth nightly as needed for itching For: sleep Commonly known as: BENADRYL docusate sodium 100 mg capsule Take 1 capsule (100 mg total) by mouth 2 (two) times a day as needed for constipation For: constipation Commonly known as: COLACE ergocalciferol 50,000 unit capsule Take 1 capsule (50,000 Units total) by mouth once a week Commonly known as: VITAMIN D losartan-hydrochlorothiazide 100-25 mg per tablet Take 1 tablet by mouth nightly For: high blood pressure Commonly known as: HYZAAR melatonin 5 mg tablet Take 5 mg by mouth nightly as needed For: sleep multivitamin capsule Take 1 capsule by mouth education program associate before breakfast For: treatment to prevent vitamin deficiency oxyCODONE 5 mg immediate release tablet Take 1 tablet (5 mg total) by mouth every 6 (six) hours as needed for pain For: pain Commonly known as: ROXICODONE ustekinumab 130 mg/26 mL solution Infuse 104 mL (520 mg total) into a venous catheter once for 1 dose For: Crohn's disease Commonly known as: NICANOR Outpatient Follow-Up: Future Appointments Date Time Provider Department Center 04/19/2020 12:00 PM [facility] IR [facility] IR [facility] 04/19/2020 1:00 PM [facility] NEW IR - TBD PROCEDURES [facility] IR [id number] 05/18/2020 10:00 AM Corbin Duque MD GI BW B2 200 GAN GASTRO 05/27/2020 9:30 AM [facility] ULTRASOUND 3 C US [id number] 07/13/2020 2:00 PM Hipolito Reyes MD URO BW MOB4 PLASENCIA 02/22/2021 10:00 AM Gabriel Horner MD SPINE BW4 OS documented in this encounter Discharge Instructions * Discharge Instructions* Mesfin Myers MD - 04/18/2020 8:59 AM CDT DISCHARGE INSTRUCTIONS FOR PERCUTANEOUS NEPHROLITHOTOMY Call your doctor if: * You have a fever higher than 101.5 F (38.6 C). * You have nausea, vomiting or diarrhea. * Your pain medicine is not helping your pain. * You feel dizzy, very tired or like you may faint. * You have large blood clots in your urine. * If your PCN does not have any output for 2 hours then call your urologist immediately. Call your surgeon???s office during regular business hours if you have questions or concerns. If you need to speak to someone after regular hours or on weekends or holidays, call . Diet: You may resume your usual home diet. Activity: * Do NOT perform any lifting that causes you to strain while you have PCN tubes. * Do NOT drive or operate machinery if you are taking narcotic pain medicine. * Do NOT take tub baths or swim in pools or hot tubs while you have PCN tubes. * You may take showers. * Take short frequent walks every day. Climbing stairs is OK. Special Instructions: Smoking increases wound healing time. Please refrain, or at least, reduce smoking for 4 weeks. If you would like a prescription for a nicotine patch, please contact your care provider who will be happy to help. ADDITIONAL INSTRUCTIONS: Antibiotics: Please take your antibiotic as prescribed for 2 more days. This will be a total courseof 7 days of antibiotics. Pain Control You may experience pain at the drain site after your procedure. This is a normal part of the recovery process. The pain is more tolerable for some patients and less tolerable for others. When you are in pain: - Start by applying ice packs or heating pads and using over the counter medications such as acetaminophen (Tylenol) or ibuprofen (Advil or Motrin) unless otherwise specified by your doctor. - If your pain is still uncontrolled, you may take a stronger, prescription medication that contains opioids. Take only as much of this medication as you need. - As you recover, your pain will decrease and you will need less pain medication. You should only take pain medication if you are in pain. - If you are no longer taking any of your opioid medication and have leftover pills, dispose of them by placing them in a plastic bag, adding dish soap, and throwing them in the trash. FOLLOW UP: Dr. Hipolito Pena* would like to see you in 1-2 weeks. The clinic will call you to schedule a follow-up appointment. If you do not hear from them within 3 business days, please call to schedule your appointment. You have an appointment with interventional radiology on 04/19/2020 for an antegrade nephrostogram. Your appointment is at 12:00, please arrive to the 3rd floor interventional radiology department in [facility] at 11:00 AM. If you have any questions please call [phone]. Active issues requiring follow up: Left PCN tube - Test results pending at discharge: none documented in this encounter Medications at Time of Discharge cyanocobalamin, vitamin B-12, 5,000 mcg tablet, sublingualIndica tions:Prevention of Vitamin B12 [address]iciency [address] 1 tablet under the tongue education program associate before breakfast losartan-hydroch lorothiazide (HYZAAR) 100-25 mg per tabletIndication s:hypertension Take 1 tablet by mouth nightly 02/23/2019 multivitamin capsuleIndicatio ns:Vitamin Deficiency Prevention Take 1 capsule by mouth education program associate before breakfast cephalexin (KEFLEX) 500 mg capsuleIndicatio ns:Urinary Tract/Genitourin holly Infection Take 1 capsule (500 mg total) by mouth 4 (four) times a day for 2 days 8 capsule 04/18/2020 0 acetaminophen 500 mg capsuleIndicatio ns:Pain Take 2 [...] 04/15/2020 1 ergocalciferol (VITAMIN D) 50,000 unit capsule Take 1 capsule (50,000 Units total) by mouth once a week 4 capsule 1 03/22/2020 0 melatonin 5 mg tabletIndication s:sleep Take [...] for 1 dose 104 mL 04/07/2020 0 documented as of this encounter Ordered Prescriptions Prescription Sig Dispense Quantity Refills Last Filled Start Date End Date cephalexin (KEFLEX) 500 mg capsuleIndication s:Urinary Tract/Genitourina ry Infection Take 1 capsule (500 mg total) by mouth 4 (four) times a day for 2 days 8 capsule 04/18/2020 0 docusate sodium (COLACE) 100 mg capsuleIndication s:constipation Take 1 capsule (100 mg total) by mouth 2 (two) times a day as needed for constipation 60 capsule 04/15/2020 1 acetaminophen 500 mg capsuleIndication s:Pain Take 2 capsules (1,000 mg total) by mouth every 6 (six) hours For pain 120 tablet 04/15/2020 1 oxyCODONE (ROXICODONE) 5 mg immediate release tabletIndications :Pain Take 1 tablet (5 mg total) by mouth every 6 (six) hours as needed for pain 10 tablet 04/15/2020 1 documented in this encounter Discharge Disposition Disposition Code Departure Means Destination Discharge to home or self care documented in this encounter Progress Notes * Valentina Goyal RN - 04/18/2020 11:43 AM CDT 04/13/20 0758 Discharge Summary Chart reviewed For Medical Necessity Does patient have a planned readmission to hospital planned? No Equipment/Provider Needs No Home Needs Identified Discharge Additional Assistance Does the patient need discharge transport arranged? No Post Discharge Care Provider Post Discharge Care Plan DC Summary has been faxed to next level of care provider (see Follow Up Providers) Patient to discharge to home with spouse, Mayda Montiel to provide transportation. No DME or Home Health needs identified. * Sparks, Andrew Blake MD - 04/17/2020 7:56 AM CDT [facility] Daily Progress Note Urological Surgery PATIENT NAME: Zoey Joseph : 1970 ADMIT DATE: 04/12/2020 10:09 AM LOS: 5 Subjective CHIEF COMPLAINT: Bilateral nephrolithiasis INTERVAL HISTORY: Febrile to 101.5, on ceftriaxone Wbc 10.6 to 9.7 1.4L uop, 525 nephrostomy tube Pain control adequate -n/-v, tolerating diet +oob/+amb +f/-bm C/o transient headaches. Objective MEDICATIONS: Scheduled: acetaminophen, 1,000 mg, oral, Q6H SREEDHAR cefTRIAXone, 1,000 mg, intravenous, Q24H SREEDHAR cholestyramine-aspartame, 1 packet, oral, BID - special enoxaparin, 40 mg, subcutaneous, Daily-2100 ramelteon, 8 mg, oral, Nightly sodium chloride 0.9%, 0.5-20 mL, intra-catheter, Q8H SREEDHAR Infusions: PRN: docusate sodium ??? ondansetron ODT OR ondansetron ??? oxyCODONE ??? sodium chloride 0.9% VITALS: 24hr Min/Max: Temp Min: 36.8 ??C (98.2 ??F) Max: 38.6 ??C (101.5 ??F) Pulse Min: 89 Max: 106 BP Min: 106/66 Max: 161/90 Resp Min: 16 Max: 18 SpO2 Min: 93 % Max: 96 % Most Recent: Vitals: 04/16/20 1757 04/16/20 2145 04/17/20 0023 04/17/20 0605 BP: 133/86 160/93 161/90 135/83 BP Location: Left arm Left arm Left arm Left arm Patient Position: Lying Lying Sitting Pulse: 100 99 106 106 Resp: 18 18 18 18 Temp: (!) 38.6 ??C (101.5 ??F) 37.5 ??C (99.5 ??F) 37.6 ??C (99.7 ??F) 37.2 ??C (99 ??F) TempSrc: Oral Oral Oral Oral SpO2: 95% 96% 94% 95% Weight: Height: I/O last 2 completed shifts: In: 600 [P.O.:600] Out: 1450 [Urine:1450] Intake/Output Summary (Last 24 hours) at 04/17/2020 0756 Last data filed at 04/17/2020 0020 Gross per 24 hour Intake 600 ml Output 1450 ml Net -850 ml PHYSICAL EXAM: General: NAD, resting comfortably in bed, speaking full sentences CV: skin and extremities wwp, radial pulse 2+ Respiratory:Nonlabored Abdomen: Soft, non-distended, appropriately tender to palpation : no means; L PCN in place, draining red urine Msk: No edmma Neuro: Alert and oriented LAB/ RADIOLOGY/ DIAGNOSTIC REVIEW: Recent Labs Lab Units 04/16/20215604/15/20189904/14/20 2359 SODIUM mmol/L 136 135 135 POTASSIUM PLASMA mmol/L 3.6 3.7 3.9 CO2 mmol/L 23 21* 23 BUN SERUM mg/dL 10 13 16 GLUCOSE mg/dL 123 149 129 CREATININE mg/dL 1.17 1.23 1.32* CALCIUM mg/dL 8.7 8.6 8.3* CHLORIDE mmol/L 103 106 104 ANIONGAP mmol/L 10 8 8 Recent Labs Lab Units 04/16/20215604/15/20189904/14/20 2359 WBC K/cumm 9.7 10.6* 9.3 HEMOGLOBIN g/dL 11.3* 11.3* 11.5* HEMATOCRIT % 32.7* 33.0* 34.2* MCV fL 87.2 87.5 89.8 PLATELETS K/cumm 259 254 242 Assessment Zoey Joseph is a 49 y.o. male s/p Left PCNL now with fevers to 38.6 Plan Pain contro; Continue ceftriaxone SLIV 10 pm labs F/u Ucx and Bcx --ngtd - repeat ucx and bcx Bowel regiment, colace Regular; mIVF, and gatorade SCDs; hold AC Cosigned by Hipolito Reyes MD at 04/17/2020 7:40 PM CDT * Andrew Sparks MD - 04/16/2020 6:46 AM CDT [facility] Daily Progress Note Urological Surgery PATIENT NAME: Zoey Joseph : 1970 ADMIT DATE: 04/12/2020 10:09 AM LOS: 4 Subjective CHIEF COMPLAINT: Bilateral nephrolithiasis INTERVAL HISTORY: Febrile to 101.3, started on ceftriaxone Wbc 9.3 to 10.6 1.7L uop, 375 nephrostomy tube Pain control adequate -n/-v, tolerating diet +oob/+amb +f/-bm Objective MEDICATIONS: Scheduled: acetaminophen, 1,000 mg, oral, Q6H SREEDHAR cefTRIAXone, 1,000 mg, intravenous, Q24H SREEDHAR cholestyramine-aspartame, 1 packet, oral, BID - special enoxaparin, 40 mg, subcutaneous, Daily-2100 ramelteon, 8 mg, oral, Nightly sodium chloride 0.9%, 0.5-20 mL, intra-catheter, Q8H SREEDHAR Infusions: dextrose 5% and sodium chloride 0.45%, 75 mL/hr, Last Rate: 75 mL/hr (04/15/202021) PRN: ondansetron ODT OR ondansetron ??? oxyCODONE ??? sodium chloride 0.9% VITALS: 24hr Min/Max: Temp Min: 36.7 ??C (98.1 ??F) Max: 38.5 ??C (101.3 ??F) Pulse Min: 91 Max: 116 BP Min: 101/84 Max: 143/77 Resp Min: 16 Max: 18 SpO2 Min: 91 % Max: 95 % Most Recent: Vitals: 04/15/20 1850 04/15/20 2137 04/15/20 2305 04/16/20 0346 BP: 120/76 143/77 101/84 BP Location: Left arm Left arm Patient Position: Sitting Pulse: 116 106 99 Resp: 16 16 Temp: 38.5 ??C (101.3 ??F) 37.9 ??C (100.2 ??F) 37.6 ??C (99.7 ??F) 36.7 ??C (98.1 ??F) TempSrc: Oral Oral Oral SpO2: 91% 92% 94% Weight: Height: I/O last 2 completed shifts: In: 2213 [P.O.:990; I.V.:1223] Out: 1465 [Urine:1465] Intake/Output Summary (Last 24 hours) at 04/16/2020 0646 Last data filed at 04/16/2020 0345 Gross per 24 hour Intake 1713 ml Output 2100 ml Net -387 ml PHYSICAL EXAM: General: NAD CV: skin and extremities wwp Respiratory:Nonlabored Abdomen: Soft, non-distended, appropriately tender to palpation : no means; L PCN in place, draining red urine Neuro: Alert and oriented LAB/ RADIOLOGY/ DIAGNOSTIC REVIEW: Recent Labs Lab Units 04/15/20189904/14/20235804/13/20 2104 SODIUM mmol/L 135 135 137 POTASSIUM PLASMA mmol/L 3.7 3.9 3.9 CO2 mmol/L 21* 23 23 BUN SERUM mg/dL 13 16 23 GLUCOSE mg/dL 149 129 116 CREATININE mg/dL 1.23 1.32* 1.30 CALCIUM mg/dL 8.6 8.3* 8.9 CHLORIDE mmol/L 106 104 105 ANIONGAP mmol/L 8 8 9 Recent Labs Lab Units 04/15/20189904/14/20235804/13/20 2104 WBC K/cumm 10.6* 9.3 8.4 HEMOGLOBIN g/dL 11.3* 11.5* 12.6* HEMATOCRIT % 33.0* 34.2* 37.9* MCV fL 87.5 89.8 88.8 PLATELETS K/cumm 254 242 282 Assessment Zoey Joseph is a 49 y.o. male s/p Left PCNL. Plan Pain control Continue ceftriaxone SLIV 10 pm labs F/u Ucx and Bcx Bowel regiment, colace Regular; mIVF SCDs; hold AC Cosigned by Hipolito Reyes MD at 04/16/2020 8:14 PM CDT * Mesfin Myers MD - 04/14/2020 7:00 AM CDT [facility] Daily Progress Note Urological Surgery PATIENT NAME: Zoey Joseph : 1970 ADMIT DATE: 04/12/2020 10:09 AM LOS: 0 Subjective CHIEF COMPLAINT: Bilateral nephrolithiasis INTERVAL HISTORY: CT w/ significant residual stone SITA, VSS, afebrile Pain control adequate -n/-v, tolerating diet +oob/+amb +f/-bm Objective MEDICATIONS: Scheduled: [OCT Hold] acetaminophen, 1,000 mg, oral, Q6H SREEDHAR ceFAZolin, 2,000 mg, intravenous, Once [Oct] cholestyramine-aspartame, 1 packet, oral, BID - special [Held by Provider] enoxaparin, 40 mg, subcutaneous, Daily-2100 [Oct] ketorolac, 15 mg, intravenous, Q6H SREEDHAR [Oct] ramelteon, 8 mg, oral, Nightly [Oct] sodium chloride 0.9%, 0.5-20 mL, intra-catheter, Q8H SREEDHAR Infusions: dextrose 5% and sodium chloride 0.45%, 75 mL/hr, Last Rate: 75 mL/hr (04/13/202140) Lactated Ringer's, 30 mL/hr, Last Rate: 30 mL/hr (04/14/20 0830) PRN: [OCT Hold] ondansetron ODT OR [OCT Hold] ondansetron ??? [OCT Hold] oxyCODONE ??? [OCT Hold] sodium chloride 0.9% ??? sodium chloride 0.9% ??? sodium chloride 0.9% VITALS: 24hr Min/Max: Temp Min: 36.6 ??C (97.9 ??F) Max: 37 ??C (98.6 ??F) Pulse Min: 76 Max: 88 BP Min: 117/78 Max: 134/92 Resp Min: 16 Max: 29 SpO2 Min: 95 % Max: 99 % Most Recent: Vitals: 04/14/20 0433 04/14/20 0808 04/14/20 0810 04/14/20 08 BP: 124/81 125/89 134/92 BP Location: Left arm Patient Position: Sitting Pulse: 84 86 88 88 Resp: 18 25 29 22 Temp: 37 ??C (98.6 ??F) 36.8 ??C (98.2 ??F) TempSrc: Oral Temporal SpO2: 99% 95% 96% 95% Weight: Height: I/O last 2 completed shifts: In: 405 [I.V.:405] Out: 1895 [Urine:1895] Intake/Output Summary (Last 24 hours) at 04/14/2020 0901 Last data filed at 04/14/2020 0335 Gross per 24 hour Intake 405 ml Output 1570 ml Net -1165 ml PHYSICAL EXAM: General: NAD CV: skin and extremities wwp Respiratory:Nonlabored Abdomen: Soft, non-distended, appropriately tender to palpation : no means; L PCN in place, draining red urine Neuro: Alert and oriented LAB/ RADIOLOGY/ DIAGNOSTIC REVIEW: Recent Labs Lab Units 04/13/20 2104 04/13/20 0432 04/08/20 0814 SODIUM mmol/L 137 137 139 POTASSIUM PLASMA mmol/L 3.9 4.3 4.1 CO2 mmol/L 23 24 28 BUN SERUM mg/dL 23 23 12 GLUCOSE mg/dL 116 131 91 CREATININE mg/dL 1.30 1.20 1.05 CALCIUM mg/dL 8.9 8.9 9.6 CHLORIDE mmol/L 105 97 101 ALBUMIN g/dL -- -- 4.2 AST Units/L -- -- 32 ALT Units/L -- -- 51 ALK PHOS Units/L -- -- 92 BILIRUBIN TOTAL mg/dL -- -- 0.5 TOTAL PROTEIN g/dL -- -- 7.1 ANIONGAP mmol/L 9 16* 10 Recent Labs Lab Units 04/13/20 2104 04/13/20 0432 04/08/20 0814 WBC K/cumm 8.4 9.5 5.4 HEMOGLOBIN g/dL 12.6* 13.1 13.8 HEMATOCRIT % 37.9* 39.7 40.8 MCV fL 88.8 88.6 87.2 PLATELETS K/cumm 282 307 329 Recent Labs Lab Units 04/08/20 0814 BILIRUBIN TOTAL mg/dL 0.5 Assessment Zoey Joseph is a 49 y.o. male s/p Left PCNL. Plan Pain control OR takeback today for 2nd look NPO; mIVF SCDs; hold AC Cosigned by Hipolito Reyes MD at 04/14/2020 9:23 AM CDT Associated attestation - Hipolito Reyes MD - 04/14/2020 9:23 AM CDT I have seen and examined the patient on 04/14/20. I agree with the findings and plan of care as documented in the resident's/fellow's note. and as discussed with the resident/fellow.. * Andrew Sparks MD - 04/13/2020 11:42 AM CDT [facility] Daily Progress Note Urological Surgery PATIENT NAME: Zoey Joseph : 1970 ADMIT DATE: 04/12/2020 10:09 AM LOS: 0 Problem List Items Addressed This Visit Other * (Principal) Bilateral nephrolithiasis Relevant Orders Surgical pathology Other Visit Diagnoses Preoperative testing - Primary Subjective CHIEF COMPLAINT: Bilateral nephrolithiasis INTERVAL HISTORY: No acute events overnight. VSS. Pain well controlled with POPM. Adequate UOP. Objective MEDICATIONS: Scheduled: acetaminophen, 1,000 mg, oral, Q6H SREEDHAR cholestyramine-aspartame, 1 packet, oral, BID - special enoxaparin, 40 mg, subcutaneous, Daily-2100 ketorolac, 15 mg, intravenous, Q6H SREEDHAR sodium chloride 0.9%, 0.5-20 mL, intra-catheter, Q8H SREEDHAR Infusions: dextrose 5% and sodium chloride 0.45%, 75 mL/hr, Last Rate: 75 mL/hr (04/13/20 0814) Lactated Ringer's, 75 mL/hr, Last Rate: Stopped (04/12/201810) PRN: ondansetron ODT OR ondansetron ??? oxyCODONE ??? sodium chloride 0.9% VITALS: 24hr Min/Max: Temp Min: 36.1 ??C (97 ??F) Max: 36.7 ??C (98.1 ??F) Pulse Min: 64 Max: 101 BP Min: 98/58 Max: 141/89 Resp Min: 10 Max: 24 SpO2 Min: 92 % Max: 100 % Most Recent: Vitals: 04/13/20 0015 04/13/20 0435 04/13/20 0803 04/13/20 1105 BP: 108/71 123/88 116/90 129/94 BP Location: Right arm Right arm Right arm Left arm Patient Position: Lying Lying Lying Lying Pulse: 71 64 73 86 Resp: 15 16 16 16 Temp: 36.5 ??C (97.7 ??F) 36.5 ??C (97.7 ??F) 36.6 ??C (97.9 ??F) 36.7 ??C (98.1 ??F) TempSrc: Oral Oral Oral Oral SpO2: 95% 99% 97% Weight: Height: I/O last 2 completed shifts: In: 2689 [P.O.:800; I.V.:1889] Out: 995 [Urine:995] Intake/Output Summary (Last 24 hours) at 04/13/2020 1142 Last data filed at 04/13/2020 1103 Gross per 24 hour Intake 3094 ml Output 1720 ml Net 1374 ml PHYSICAL EXAM: General: Alert & Oriented x 3, No acute distress and Drowsy CV: Normal S1, S2, no murmurs/rubs/gallops Respiratory:Nonlabored, CTAB Abdomen: Soft, non-distended, appropriately tender to palpation Dressing:Clean, dry and intact. Drains: L PCN Urine: Dark and reddish with trace of blood Extremities: Warm, dry Peripheral Pulses: ++, SCDs in place and functioning Neuro: Grossly intact LAB/ RADIOLOGY/ DIAGNOSTIC REVIEW: Recent Labs Lab Units 04/13/20 0432 04/08/20 0814 SODIUM mmol/L 137 139 POTASSIUM PLASMA mmol/L 4.3 4.1 CO2 mmol/L 24 28 BUN SERUM mg/dL 23 12 GLUCOSE mg/dL 131 91 CREATININE mg/dL 1.20 1.05 CALCIUM mg/dL 8.9 9.6 CHLORIDE mmol/L 97 101 ALBUMIN g/dL -- 4.2 AST Units/L -- 32 ALT Units/L -- 51 ALK PHOS Units/L -- 92 BILIRUBIN TOTAL mg/dL -- 0.5 TOTAL PROTEIN g/dL -- 7.1 ANIONGAP mmol/L 16* 10 Recent Labs Lab Units 04/13/20 0432 04/08/20 0814 WBC K/cumm 9.5 5.4 HEMOGLOBIN g/dL 13.1 13.8 HEMATOCRIT % 39.7 40.8 MCV fL 88.6 87.2 PLATELETS K/cumm 307 329 Recent Labs Lab Units 04/08/20 0814 BILIRUBIN TOTAL mg/dL 0.5 I have reviewed the laboratory results. Assessment Zoey Joseph is a 49 y.o. male s/p LPCNL. POD 1, found to have residual stone on follow up CT. Plan for take back tomorrow Plan Neuro: Pain control w/ oxycodone and toradol CV: VSS Pulm: IS FEN: 75mL d51/2NS : follow up CT scan, maintain pcn to gravity, will plan for OR take back Heme: Hgb 13.1 ID: afebrile, no abx Activity: OOB, Ambulate TID Diet: regular, NPO midnight PPx: SCDs, Lovenox Dispo: floor Andrew Sparks MD, [employer] Urology, PGY1 Cosigned by Hipolito Reyes MD at 04/13/2020 12:23 PM CDT * Valentina Goyal RN - 04/13/2020 7:58 AM CDT 04/13/20 0756 Information Information Obtained From Patient Referral Data Referral Source Super[employer] Referral Reason Discharge Planning Prior to Admission Primary Caregiver Self Support System Spouse/Significant Other Support system contact info (name, phone, availablity) spouseMayda Home Care Services No Durable Medical Equipment None Living Arrangements Spouse/significant other Type of Residence Private residence Steps in home? Yes, Outside of home;Yes, Inside home Number of steps inside: 1 steps Number of steps outside: 1 steps Financial Resource Payor Source Commercial Potential Discharge Needs Anticipated discharge level of care Private residence Pt/Family agrees with Anticipated Level of Care Yes Patient expects to be discharged to: Private residence Dialysis No Behavioral Health Services No Impression: LEFT PERCUTANEOUS NEPHROLITHOTOMY, PLACEMENT STENT -LEFT URETERAL,LEFT LITHOTRIPSY. Additional Information/Options Discussed: Patient interviewed over phone for initial assessment. Address and phone verified to face sheet. HHC: none Transportation: spouseMayda Problem: ensure safe discharge when medically stable Plan/Goal Includes: CM to follow for needs Insurance verified as: Blue Cross [place] and [employer] Admit Source: non health care facility PCP: verified as Jayla Phoenix MD Pharmacy: Prescription coverage verified Based on a comprehensive family assessment, assistance with instrumental activities of daily livingafter discharge will be provided by patient. Through the course of our work I determined that patient possesses the skill and ability to provideand monitor the care of the patient when he or she returns home. Patient has the capacity to provide/monitor/arrange for the care of the patient. Finally, we determined that patient has the knowledgeof available resources and that combining them with their existing resources will suffice to sustain and care for the patient when he or she returns home. The treatment team is aware of this information. All are in agreement with the aftercare plan. * Sky Dobbs MD - 04/12/2020 7:46 PM CDT Urology Postoperative Progress Note: Attending Physician: Hipolito Pena* Diagnosis: Bilateral nephrolithiasis Surgical Procedure: LEFT PERCUTANEOUS NEPHROLITHOTOMY, PLACEMENT STENT -LEFT URETERAL,LEFT LITHOTRIPSY. Allergies Allergen Reactions ??? Iodinated Contrast Media Rash Allergies reviewed. Subjective: Patient transferred from the PACU to the floor in hemodynamically stable condition, Has a means catheter in place with trace of blood, has L PCN drain with 100 cc of SS output. No nausea/vomiting/chest pain/shortness of breath. Objective: BP 131/96 Pulse 93 Temp 36.6 ??C (97.9 ??F) (Oral) Resp 15 SpO2 99% Physical Exam: General: Alert & Oriented x 3, No acute distress and Drowsy CV: Normal S1, S2, no murmurs/rubs/gallops Respiratory:Nonlabored, CTAB Abdomen: Soft, non-distended, appropriately tender to palpation Dressing:Clean, dry and intact. Drains: L PCN Drainage: SS : Indwelling means Urine: Dark and reddish with trace of blood Extremities: Warm, dry Peripheral Pulses: ++, SCDs in place and functioning Neuro: Grossly intact Assessment/Plan: Zoey Joseph is a 49 y.o. male with Preoperative testing Bilateral nephrolithiasis, status post LEFT PERCUTANEOUS NEPHROLITHOTOMY, PLACEMENT STENT -LEFT URETERAL,LEFT LITHOTRIPSY. - Regular Diet - CT in AM, - AM labs, - Pain control Sky Andrade MD General Surgery Resident Postgraduate Year [employer] [facility] [employer] 04/12/20 7:47 PM Cosigned by Hipolito Reyes MD at 04/12/2020 11:17 PM CDT documented in this encounter H&P Notes * Rito Sloan MD - 04/14/2020 9:26 AM CDT I have reviewed the H&P, examined the patient, and endorse the findings as written. Reviewed CT images with patient, rationale for procedure, risks/benefits. He is agreeable to proceed. Plan of Care : Based on the above findings, I consider Zoey Joseph to be an acceptable risk for : Procedure(s): PERCUTANEOUS NEPHROLITHOTOMY PLACEMENT STENT - URETERAL LITHOTRIPSY - LASER Cosigned by Hipolito Reyes MD at 04/14/2020 1:27 PM CDT Source Note - Luiza Robbins MD - 04/14/2020 8:09 AM CDT Images from the original note were not included. Anesthesia Evaluation Zoey Joseph is a 49 y.o. male Procedure(s): PERCUTANEOUS NEPHROLITHOTOMY PLACEMENT STENT - URETERAL LITHOTRIPSY - LASER Pre-Op Diagnosis Codes: * Bilateral nephrolithiasis [N20.0] Patient Active Problem List Diagnosis ??? Cervical pain (neck) ??? Cervical radiculopathy at C7 ??? Cervical disc herniation ??? Cervical radiculopathy ??? Fusion of spine of cervical region ??? Crohn's disease of both small and large intestine with other complication (CMS/HCC) ??? 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 Bilateral nephrolithiasis Past Medical History: Diagnosis Date ??? Crohn's disease (CMS/HCC) 2000 ??? DDD (degenerative disc disease), cervical ??? Gastric reflux ??? HTN (hypertension) Past Surgical History: Procedure Laterality Date ??? ANTERIOR CERVICAL DISCECTOMY W/ FUSION 2018 hardware removal 02/2019 ??? BOWEL RESECTION 2008 ??? KIDNEY STONE SURGERY Allergies Allergen Reactions ??? Iodinated Contrast Media Rash Taking? Last Dose Start Date End Date Provider cholestyramine-aspartame 4 gram powder 04/13/2020 03/10/20 -- Corbin Duque MD Take 1 Scoop by mouth 2 (two) times a day cyanocobalamin, vitamin B-12, 5,000 mcg tablet, sublingual 04/11/2020 -- -- Historical Provider, diphenhydrAMINE (BENADRYL) 25 mg capsule 04/11/2020 -- -- Historical Provider, ergocalciferol (VITAMIN D) 50,000 unit capsule 04/09/2020 03/22/20 03/22/21 Corbin Duque MD Take 1 capsule (50,000 Units total) by mouth once a week Patient taking differently: Take 50,000 Units by mouth once a week Saturday losartan-hydrochlorothiazide (HYZAAR) 100-25 mg per tablet 04/11/2020 02/23/19 -- Historical Provider, melatonin 5 mg tablet 04/07/2020 -- -- Historical Provider, multivitamin capsule 04/07/2020 -- -- Historical Provider, ustekinumab (STELARA) 130 mg/26 mL solution () Unknown 04/07/20 04/07/20 Corbin Duque MD Infuse 104 mL (520 mg total) into a venous catheter once for 1 dose Notes: Pt states has not started. Current Facility-Administered Medications: ??? [MAR Hold] acetaminophen (TYLENOL) tablet 1,000 mg, 1,000 mg, oral, Q6H SREEDHAR, 1,000 mg at 04/14/20 0019 ??? ceFAZolin (ANCEF) 2,000 mg/20 mL in sterile water (premix) 2,000 mg, 2,000 mg, intravenous, Once ??? [MAR Hold] cholestyramine-aspartame (QUESTRAN LIGHT) 4 gram packet 1 packet, 1 packet, oral, BID - special, 1 packet at 04/14/20 0430 ??? dextrose 5% and sodium chloride 0.45% infusion (premix), 75 mL/hr, intravenous, Continuous, Last Rate: 75 mL/hr at 04/13/202140, 75 mL/hr at 04/13/202140 ??? [Held by Provider] enoxaparin (LOVENOX) syringe 40 mg, 40 mg, subcutaneous, Daily-2100, 40 mg at 04/12/20 1946 ??? [OCT Hold] ketorolac (TORADOL) 15 mg/mL injection 15 mg, 15 mg, intravenous, Q6H SREEDHAR, 15 mg at 04/13/20 1500 ??? Lactated Ringer's (LR) infusion, 30 mL/hr, intravenous, Continuous ??? [OCT Hold] ondansetron ODT (ZOFRAN-ODT) disintegrating tablet 4 mg, 4 mg, oral, Q6H PRN OR [OCT Hold] ondansetron (ZOFRAN) injection 4 mg, 4 mg, intravenous, Q6H PRN ??? [OCT Hold] oxyCODONE (ROXICODONE) tablet 5 mg, 5 mg, oral, Q4H PRN, 5 mg at 04/14/20 0430 ??? [OCT Hold] ramelteon (ROZEREM) tablet 8 mg, 8 mg, oral, Nightly, 8 mg at 04/13/20 2137 ??? [MAR Hold] sodium chloride 0.9% flush 0.5-20 mL, 0.5-20 mL, intra-catheter, Q8H SREEDHAR, 10 mL at 04/13/20 1500 ??? [MAR Hold] sodium chloride 0.9% flush 0.5-20 mL, 0.5-20 mL, intra-catheter, PRN, 10 mL at 04/13/20 0808 ??? sodium chloride 0.9% flush 0.5-20 mL, 0.5-20 mL, intra-catheter, PRN ??? sodium chloride 0.9% flush 0.5-20 mL, 0.5-20 mL, intra-catheter, PRN Social History Tobacco Use Smoking Status Former Smoker ??? Packs/day: 1.50 ??? Types: Cigarettes ??? Start date: 1993 ??? Quit date: 2002 ??? Years since quittin.6 Smokeless Tobacco Never Used Substance and Sexual Activity Alcohol Use Not Currently Substance and Sexual Activity Drug Use No Family History Problem Relation Age of Onset ??? Heart attack Father ??? Anesthesia problems Neg Hx Vitals: 04/13/20 2043 04/14/20 0021 04/14/20 0433 BP: 128/91 130/84 124/81 Pulse: 85 86 84 Resp: 16 18 18 Temp: 37 ??C (98.6 ??F) 36.8 ??C (98.2 ??F) 37 ??C (98.6 ??F) SpO2: 98% 97% 99% PT: No results found for requested labs within last 720 hours. INR: No results found for requested labs within last 720 hours. APTT: No results found for requested labs within last 720 hours. Hgb A1C: No results found for requested labs within last 720 hours. CBC RBC: 04/13/2020: 4.27 M/cumm* RDW: No results found for requested labs within last 720 hours. MCHC: 04/13/2020: 33.2 g/dL MCH: 04/13/2020: 29.5 pg MCV: 04/13/2020: 88.8 fL Hct: 04/13/2020: 37.9 %* Hgb: 04/13/2020: 12.6 g/dL* WBC: 04/13/2020: 8.4 K/cumm MPV: 04/13/2020: 9.7 fL Platelets: 04/13/2020: 282 K/cumm RDW CV: 04/13/2020: 13.9 % RDW Sd: 04/13/2020: 45.1 fL BMP Glucose: 04/13/2020: 116 mg/dL Calcium: 04/13/2020: 8.9 mg/dL Sodium: 04/13/2020: 137 mmol/L Potassium: 04/13/2020: 3.9 mmol/L CO2: 04/13/2020: 23 mmol/L Chloride: 04/13/2020: 105 mmol/L BUN: 04/13/2020: 23 mg/dL Creatinine: 04/13/2020: 1.30 mg/dL STOP-Bang Total Score: 4 DOS Physical Exam Medical history, medications, and allergies reviewed. Attestation: I endorse the findings of the anesthesia pre-evaluation assessment dated: 04/01/2020. Airway Exam: Mallampati: II Cervical ROM: FROM TM distance: >4 Jaw ROM: full Cardiovascular Exam: Rate: regular Rhythm: regular Pulmonary Exam: LCTA, bilat Dental Exam: Otherwise appears intact Anesthesia Plan ASA 3 My patient is approved for the Anesthesia Controlled Medication protocol when under care of a [facility] [employer] Planned anesthesia: General Induction: Induction: intravenous. Postoperative Plan: Postoperative administration opioids intended. No postoperative mechanical ventilation intended. Patient's planned disposition post procedure is 23 hour admit. Informed Consent: Discussed plan with [facility] [employer]. Anesthesia plan and risks discussed with patient. Consent and Attending signature: I and/or my designee have discussed the anesthesia plan, benefits, possible alternatives, parental presence at time of induction (if indicated), and clinically relevant risks that may include dental injury, unintentional awareness, and/or other complications. The patient and/or parent/legal guardian understand, and agree to proceed. All questions answered. * Jace Houston MD - 04/12/2020 11:29 AM CDT I have reviewed the H&P, examined the patient, and endorse the findings as written. Plan of Care : Based on the above findings, I consider Zoey Joseph to be an acceptable risk for : LEFT percutaneous nephrolithotomy Cosigned by Hipolito Reyes MD at 04/12/2020 11:53 AM CDT Associated attestation - Hipolito Reyes MD - 04/12/2020 11:53 AM CDT I have seen and examined the patient on 04/12/20. I agree with the findings and plan of care as documented in the resident's/fellow's note. and as discussed with the resident/fellow.. Hipolito Reyes MD Source Note - Kait Gibson NP - 04/08/2020 8:03 AM CDT Images from the original note were not included. [facility] for Preoperative Assessment and Planning Preoperative Evaluation Record Evaluation type/location: [facility] Planned procedure site: [facility] OR (Pod 1) Date: 04/08/20 Anesthesia Evaluation Zoey Joseph is a 49 y.o. male Procedure(s): PERCUTANEOUS NEPHROLITHOTOMY PLACEMENT STENT - URETERAL URETEROSCOPY LITHOTRIPSY - LASER Pre-Op Diagnosis Codes: * Bilateral nephrolithiasis [N20.0] HISTORY HPI Zoey Joseph is a 48 y.o. male who is scheduled to be admitted for percutaneous nephrolithotomy. Comorbidities include HTN, Chron's disease (s/p bowel resection), OA, ACDF > Anesthesia considerations - upper front cap was loosened with last intubation. Past Medical History Information obtained from: patient and chart. Neurological Pertinent negatives: seizures; neuromuscular disease and CVA/stroke Cardiovascular + Hypertension Hypertension year diagnosed: 2016. Pertinent negatives: CAD ; CA ; CABG ; valvular heart disease; valve replacement; atrial fibrillation; arrhythmia; pacemaker/ICD; PVD; DVT/PE; negative for CHF; drug-eluting stent(s); bare metal stent(s) and coronary angioplasty Respiratory Pertinent negatives: non-smoker Respiratory system: negative Hepatic / Heme Hepatic/Heme system: negative Gastrointestinal GI system: negative Renal / + Nephrolithiasis (2017 - s/p lithotripsy) Pertinent negatives: renal disease and dialysis Musculoskeletal/Pain + Chronic pain (radiculopathy-only occasional discomfort post ACDF) - neck pain. + Osteoarthritis Pertinent negatives: chronic opioid use and previous treatment for opioid use disorder Endocrine / Other + Rheumatological disease - Crohn's disease. Pertinent negatives: diabetes mellitus; thyroid disease; obesity (BMI >30); cancer history and transplanted organ Functional Capacity Functional capacity: 4-6 METs Comments: Can walk 4-6 blocks, climb 2 flights of stairs w/o CP or SOB. 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 Review of Systems + syncope (fainted once 2 years ago after neck surgery) + dizziness (rarely maybe d/t BP or anxiety per patient) + chronic pain (radiculopathy-only occasional discomfort post ACDF) + numbness/tingling (RUE d/t cervical stenosis/pinched nerve post ACDF) + diarrhea (intermittent with Crohn's) + chipped/loose teeth (upper front cap, several chipped teeth) + unexpected wt change (gained 40 pounds being more sedentary after ACDF 3 month period) Pertinent negatives: productive cough; wheezing; SOB; recent cold/flu (allergies); fever; chest pain; palpitations; orthopnea; pedal edema; PND; Sickle Cell disease/trait; previous transfusion; transfusion reaction; melena/hematochezia; easy bruising; bleeding problems; hard of hearing; vision loss; heartburn; nausea; dysphagia; dentures/partials; abdominal pain and diaphoresis PAT Summary and Plans Cardiac risk classification of planned procedure: intermediate cardiac risk. Preoperative assessment status: lab tests ordered. Initial preoperative evaluation discussed with: Yariel Rodríguez MD Additional comments: Zoey Joseph is a 49 y.o. male who is being evaluated prior to undergoing an intermediate cardiac risk surgery. Revised Cardiac Risk Index factors are (none) for a total RCRIof 0 out of 6. Functional capacity is 4-6 METs. > Anesthesia considerations - upper front cap was loosened with last intubation. Obstructive sleep apnea (STACI) screening status is STOP-Bang=3 suggesting moderate risk for STACI, bicarbonate value pending The patient is at elevated risk for obstructive sleep apnea (STACI) per STOP-BANG screening questionnaire results. Patient informed of the possibility that they have undiagnosed STACI, which may increasetheir risk for perioperative respiratory events. Patient also informed of the possible long-term health problems associated with STACI. Because we do not feel that preoperative STACI testing is likely tooutweigh the downsides of delaying surgery, we have recommended that the patient talk to their primary doctor or other clinician after surgery about getting tested for STACI.. Blood bank needs for day of procedure: Type and Screen only Pending labs/tests include: CBC, CMP, T&S (14 day), Urinalysis culture, COVID 19 Patient with No known exposure to COVID19 and no concerning symptoms of COVID19. Plan for pre-procedure COVID19 testing: Surgery date/hospital admission within 4 days. Pre-procedure COVID19 testing performed at [facility]. Result pending. . Preoperative evaluation performed by Laurie Trinh NP on 04/08/20 at 8:05 AM. . Follow up note Labs reviewed and are without significant findings. Covid not detected. Surgeon's office reviews laboratory results independently. CPAP process complete. Follow-up completed by: Kait Gibson NP on 04/11/20 at 10:05 AM Patient Active Problem List Diagnosis ??? Cervical pain (neck) ??? Cervical radiculopathy at C7 ??? Cervical disc herniation ??? Cervical radiculopathy ??? Fusion of spine of cervical region ??? Crohn's disease of both small and large intestine with other complication (CMS/HCC) ??? 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 Bilateral nephrolithiasis Past Medical History: Diagnosis Date ??? Crohn's disease (CMS/HCC) 2000 ??? DDD (degenerative disc disease), cervical ??? Gastric reflux ??? HTN (hypertension) Past Surgical History: Procedure Laterality Date ??? ANTERIOR CERVICAL DISCECTOMY W/ FUSION 2018 hardware removal 2018 ??? BOWEL RESECTION 2009 ??? KIDNEY STONE SURGERY Allergies Allergen Reactions ??? Iodinated Contrast Media Rash Taking? Last Dose Start Date End Date Provider cholestyramine-aspartame 4 gram powder 03/10/20 -- Corbin Duque MD Take 1 Scoop by mouth 2 (two) times a day cyanocobalamin, vitamin B-12, 5,000 mcg tablet, sublingual -- -- Historical Provider, ergocalciferol (VITAMIN D) 50,000 unit capsule 03/22/20 03/22/21 Corbin Duque MD Take 1 capsule (50,000 Units total) by mouth once a week Patient not taking: Reported on 03/30/2020 losartan-hydrochlorothiazide (HYZAAR) 100-25 mg per tablet 02/23/19 -- Historical Provider, multivitamin capsule -- -- Historical Provider, ustekinumab (STELARA) 130 mg/26 mL solution () 04/07/20 04/07/20 Corbin Duque MD Infuse 104 mL (520 mg total) into a venous catheter once for 1 dose Notes: PLEASE DELIVER DIRECTLY TO THE FACILITY OF [facility] ATTN: PHARMACY, [address] [place] [address], [id number] Current Outpatient Medications: ??? cholestyramine-aspartame 4 gram powder ??? cyanocobalamin, vitamin B-12, 5,000 mcg tablet, sublingual ??? ergocalciferol (VITAMIN D) 50,000 unit capsule ??? losartan-hydrochlorothiazide (HYZAAR) 100-25 mg per tablet ??? multivitamin capsule ??? ustekinumab (STELARA) 130 mg/26 mL solution Social History Tobacco Use Smoking Status Former Smoker ??? Packs/day: 1.50 ??? Start date: 1993 ??? Quit date: 2002 ??? Years since quittin.6 Smokeless Tobacco Never Used Substance and Sexual Activity Alcohol Use Not Currently Substance and Sexual Activity Drug Use No Family History Problem Relation Age of Onset ??? Heart attack Father ??? Anesthesia problems Neg Hx PAT Physical Exam Airway Exam: Mallampati: I Cervical ROM: FROM TM distance: 3 Cardiovascular Exam: Rate: regular Rhythm: regular Pulmonary Exam: LCTA, bilat EENT Exam: trachea midline Dental Exam: Chipped and otherwise appears intact (Front implant, chipped teeth) Skin Exam: Skin is warm. Abdominal exam: Abdomen is soft and tender. Bowel sounds are present. (Chronic LRQ tenderness with Crohn's) Current state: Patient's current state is cooperative and interactive. Additional comments: Patient denies symptoms of UTI or difficulty urinating. Denies recent UTI/pyelonephritis or urinary incontinence. Denies dysuria, hesitancy, urgency or increased frequency, There were no vitals filed for this visit. PT: No results found for requested labs [...] for requested labs within last 720 hours. documented in this encounter Miscellaneous Notes * Plan of Care - Anisha Miller RN - 04/18/2020 10:16 AM CDT Problem: Health Behavior: Goal: Understanding of discharge needs will improve Outcome: Adequate for Discharge Problem: Lack of Knowledge: Goal: Ability to state signs and symptoms to report to health care provider will improve Outcome: Adequate for Discharge Goal: Understanding of ways to prevent infection will improve Outcome: Adequate for Discharge Problem: Nutritional: Goal: Nutritional status will improve Outcome: Adequate for Discharge Problem: Physical Regulation: Goal: Diagnostic test results will improve Outcome: Adequate for Discharge Goal: Will remain free from infection Outcome: Adequate for Discharge Goal: Ability to maintain vital signs within normal range will improve Outcome: Adequate for Discharge Problem: Respiratory: Goal: Ability to maintain normal respiratory secretions will improve Outcome: Adequate for Discharge Problem: Skin Integrity: Goal: Demonstration of wound healing without infection will improve Outcome: Adequate for Discharge Goal: Complications related to intravenous access or infusion will be avoided or minimized Outcome: Adequate for Discharge Goals: Clinical Goals for the Shift: VSS, ambulation, pain control, monitor I/Os Summary: Patient is adequate for discharge. * Plan of Care - Amna Appiah RN - 04/18/2020 2:55 AM CDT Problem: Health Behavior: Goal: Understanding of discharge needs will improve Outcome: Progressing Problem: Lack of Knowledge: Goal: Ability to state signs and symptoms to report to health care provider will improve Outcome: Progressing Goal: Understanding of ways to prevent infection will improve Outcome: Progressing Problem: Nutritional: Goal: Nutritional status will improve Outcome: Progressing Problem: Physical Regulation: Goal: Diagnostic test results will improve Outcome: Progressing Goal: Will remain free from infection Outcome: Progressing Goal: Ability to maintain vital signs within normal range will improve Outcome: Progressing Problem: Respiratory: Goal: Ability to maintain normal respiratory secretions will improve Outcome: Progressing Problem: Skin Integrity: Goal: Demonstration of wound healing without infection will improve Outcome: Progressing Goal: Complications related to intravenous access or infusion will be avoided or minimized Outcome: Progressing Goals: Pain control, monitor vitals and I/Os, dressing changes PRN, IS and SCDs on. Summary: Pt a*o x4. Pain controlled by scheduled and PRN medications. Vitals and I/Os monitored and recorded. Left neph tube dressing was changed as needed. Pt on room air. Pt refused SCDs at night. Pt used IS at night. Will continue to monitor pt at night. * Plan of Care - Anisha Miller RN - 04/17/2020 11:47 AM CDT Problem: Health Behavior: Goal: Understanding of discharge needs will improve Outcome: Progressing Problem: Lack of Knowledge: Goal: Ability to state signs and symptoms to report to health care provider will improve Outcome: Progressing Goal: Understanding of ways to prevent infection will improve Outcome: Progressing Problem: Nutritional: Goal: Nutritional status will improve Outcome: Progressing Problem: Physical Regulation: Goal: Diagnostic test results will improve Outcome: Progressing Goal: Will remain free from infection Outcome: Progressing Goal: Ability to maintain vital signs within normal range will improve Outcome: Progressing Problem: Respiratory: Goal: Ability to maintain normal respiratory secretions will improve Outcome: Progressing Problem: Skin Integrity: Goal: Demonstration of wound healing without infection will improve Outcome: Progressing Goal: Complications related to intravenous access or infusion will be avoided or minimized Outcome: Progressing Goals: Clinical Goals for the Shift: VSS, ambulation, pain control, monitor I/Os Summary: Patient is up ad brendan and understands to call for assistance and pain medication as needed.VS stable. Will continue to monitor for any clinical changes this shift. * Plan of Care - Charmaine Evans RN - 04/17/2020 3:35 AM CDT Goals: Clinical Goals for the Shift: VSS, patient comfort and safety, no fever, monitor dressing Summary: Problem: Health Behavior: Goal: Understanding of discharge needs will improve Outcome: Progressing Problem: Lack of Knowledge: Goal: Ability to state signs and symptoms to report to health care provider will improve Outcome: Progressing Goal: Understanding of ways to prevent infection will improve Outcome: Progressing Problem: Nutritional: Goal: Nutritional status will improve Outcome: Progressing Problem: Physical Regulation: Goal: Ability to maintain vital signs within normal range will improve Outcome: Progressing Problem: Skin Integrity: Goal: Complications related to intravenous access or infusion will be avoided or minimized Outcome: Progressing * Plan of Care - Ernestine Graham RN - 04/16/2020 2:53 PM CDT Problem: Lack of Knowledge: Goal: Understanding of ways to prevent infection will improve Outcome: Progressing Goals: Clinical Goals for the Shift: VSS, monitor i&os, rest, pain control Summary: talked to patient about infection and preventing infections, medications that prevent infection, handwashing, how to spot infection of wounds. * Plan of Care - Melany Collado RN - 04/16/2020 4:12 AM CDT Goals: Clinical Goals for the Shift: VSS, monitor i&os, rest, pain control Summary: VSS.Pt has low grade fever. Pain is controlled with scheduled pain medication. Dressing changed once around neph tube. Continuing to leak serousangeous drainage. Fluids infusing. Will continue to monitor. * Plan of Care - Magaly Garcia RN - 04/15/2020 9:04 PM CDT Problem: Health Behavior: Goal: Understanding of discharge needs will improve Outcome: Progressing Problem: Lack of Knowledge: Goal: Ability to state signs and symptoms to report to health care provider will improve Outcome: Progressing Goal: Understanding of ways to prevent infection will improve Outcome: Progressing Problem: Nutritional: Goal: Nutritional status will improve Outcome: Progressing Problem: Physical Regulation: Goal: Diagnostic test results will improve Outcome: Progressing Goal: Will remain free from infection Outcome: Progressing Goal: Ability to maintain vital signs within normal range will improve Outcome: Progressing Problem: Respiratory: Goal: Ability to maintain normal respiratory secretions will improve Outcome: Progressing Problem: Skin Integrity: Goal: Demonstration of wound healing without infection will improve Outcome: Progressing Goal: Complications related to intravenous access or infusion will be avoided or minimized Outcome: Progressing Goals: Clinical Goals for the Shift: (pain control and discharge ) Summary: A and O x 4 this shift. Pt c/o SETH pain this shift -- pain meds given as ordered. Lungs areclear and BS are present. He is voiding without issue -- urine is brown and clear. His L PCNT is leaking at the insertion site -- VP CLIENT SERVICES Mikayla aware. He reports 1 BM this shift. He is UAL. Pt is tolerating a regular diet. No edema noted. IV is his L hand is SL. Will continue to monitor. Pt was prepared to be discharged -- mobile pharmacy had delivered his meds. IV removed for discharge. He reports being chilled -- temp is 38.2. MD Cristina made aware -- discharge cancelled. * Plan of Care - Melany Collado RN - 04/15/2020 4:57 AM CDT Goals: Clinical Goals for the Shift: VSS, moniotr i&os, pain control, labs Summary: VSS. Afebrile. Pt has been complaining of headache all shift. Been given scheduled & PRN pain medication. Neph tube continues to leak urine & small amount of blood all around site. MD recommended to flush-flushed with 10 mL. Caused pt some uncomfortable pain & made him dizzy. Pts urine was dark brown colored from his urethra. Neph tube is pink. Will continue to monitor. * Post-Procedure Note - Mesfin Myers MD - 04/14/2020 3:09 PM CDT Post Operative Assessment Zoey Joseph 49 y.o. male with a history of b/l nephrolithiasis s/p 2nd look left PCNL. Patient arrives to the floor in stable condition, post-operative pain well- controlled. No nausea orvomiting. Physical Exam Vitals: 04/14/20 1357 BP: 122/82 Pulse: 91 Resp: 18 Temp: 37.2 ??C (99 ??F) SpO2: 98% GEN: Alert, oriented, resting comfortably in bed. No acute distress. HEENT: Sclera anicteric, EOMI. Moist mucous membranes. RESP: Normal effort on room air CV: Normal rate, warm & well-perfused ABD: Soft, mildly distended, appropriately tender : No means; left PCN in place draining red urine EXT: Moving all extremities, no gross deformities NEURO: Speech fluent and appropriate, smile symmetric Plan Pain control Regular diet SCD's/Lovenox DC home tonight if continued well appearance vs tomorrow; will DC w/ PCN and f/u early next week for nephrostogram before removal. Cosigned by Hipolito Reyes MD at 04/14/2020 4:21 PM CDT * Plan of Care - Rena Banks RN - 04/14/2020 12:10 PM CDT Problem: Health Behavior: Goal: Understanding of discharge needs will improve Outcome: Progressing Problem: Lack of Knowledge: Goal: Ability to state signs and symptoms to report to health care provider will improve Outcome: Progressing Goal: Understanding of ways to prevent infection will improve Outcome: Progressing Problem: Nutritional: Goal: Nutritional status will improve Outcome: Progressing Problem: Physical Regulation: Goal: Diagnostic test results will improve Outcome: Progressing Goal: Will remain free from infection Outcome: Progressing Goal: Ability to maintain vital signs within normal range will improve Outcome: Progressing Problem: Respiratory: Goal: Ability to maintain normal respiratory secretions will improve Outcome: Progressing Problem: Skin Integrity: Goal: Demonstration of wound healing without infection will improve Outcome: Progressing Goal: Complications related to intravenous access or infusion will be avoided or minimized Outcome: Progressing Goals: Clinical Goals for the Shift: pain control, diet tolerance, OR today, monitor i&O and monitor incisions, ambulation in room and hallways Summary: VSS, afebrile, remains on RA. A&O x4. FALL precautions maintained. IS 10x/hour as ordered. SCD's BLE's. FULL CODE. Up ad brendan in room and hallways. NPO. Or today as ordered and pt left [id number] this am. IVF's infusing as ordered. Left PCN tube to gravity bag with bloody drainage noted inbag. Voiding into urinal. Left flank dry dressing C&D&I. Oxycodone prn for pain control. * Op Note - Hipolito Reyes MD - 04/14/2020 10:35 AM CDT Operative Report SURGEON: Hipolito Reyes MD SURGICAL TEAM: Shared Services Representative: Jaimee Davis RN; Nazanin Doyle RN [employer] Supervisor: RT Lissette Scrub Relief: ST Tiffanie Scrub: Carly Art RN DATE OF SURGERY : 04/14/2020 PREOPERATIVE DIAGNOSIS: Pre-op Diagnosis * Bilateral nephrolithiasis [N20.0] POSTOPERATIVE DIAGNOSIS: Post-op Diagnosis * Bilateral nephrolithiasis [N20.0] PROCEDURE: SECOND LOOK PERCUTANEOUS NEPHROLITHOTOMY (L) INDICATION FOR PROCEDURE: Zoey Joseph is a 49yoM with a large left stone who underwent left PCNL 2 days ago. He did have 2areas of residual stone material present on CT. As previously planned due to the large stone burden, we returned today for a left secondary PCNL. ANESTHESIA: General IMPLANTS: Left 8.5 Fr [place] loop nephrostomy tube OPERATIVE DETAILS Estimated Blood Loss: 30 mL Intraoperative Fluids: See anesthesia records Blood/Blood Products Transfused: None Specimens: No specimens collected during this procedure. PROCEDURE: After informed consent was obtained, the patient was taken to the operating room and administered ageneral anesthetic while on the hospital stretcher. The patient received antibiotics prior to the start of the procedure. A timeout was performed prior to the start of the procedure. A 16 fr means was placed. The patient was then transitioned to a prone position on the hospital bed with arms upwards in a superman position. Appropriate padding was placed so as to prevent neurological and musculoskeletal injuries. The skin of the back on the left side was prepped with chlorhexidine including the nephrostomy tube and 5 fr ureteral access catheter. A sterile drape was then applied. Using fluoroscopy we identified the area of the left kidney, and appreciated that the stones were not radio-opaque. With contrast infused via the nephrostomy tube, we appreciated normal renal anatomy. I advanced a motion wire down the 5 bahamian catheter into the bladder, then removed the nephrostomytube and 5 bahamian catheter. I advanced an 8-10 fr dilator over the wire, removed the 8 fr, insertedan ultrastiff wire, and removed the 10 fr. The motion was secured to the drape. We passed a 24 Fr Bard X-Force balloon under fluoroscopic guidance into the calyx of puncture, which inflated and allowed sheath passage under fluoro guidance without difficulty. Repeated flexible nephroscopy removed a few more small fragments but we felt we had largely removed the stone material. There was some area of tearing of the infundibulum around the lower and mid pole. We did examine for quite some time, and felt like likely there was some stone material that may have moved from the pelvis through the eroded areas into the renal parenchyma/maile-pelvic tissues. We were unable to find what I presume was the area of midpole stone, and may represent an excluded calyx. We placed an 8.5 Fr [place] loop into the left lower pole under fluoro guidance, removed the sheath, held pressure to the back, and ultimately removed the motion wire. Nephrostogram through the [place] loop revealed good positioning of tubes and some contrast extravasation from the area of the lower pole infundibular tear. The Tube on the back were sutured using 2-0 silk, a dressing on the back was applied, and the patient's means was removed. The patient was then placed into supine position, extubated without difficulty, and taken to recovery in good condition. Operative findings: Small amount of stone material in the lower pole. Area of some tearing to the infundibulum of the lower pole. Complications: none Condition on Discharge from the operating room was stable Hipolito Reyes MD Date: 04/16/2020 Time: 9:50 PM TEACHING ATTESTATION : I was present and directly participated in the entire procedure (including opening and closing). * Brief Op Note - Hipolito Reyes MD - 04/14/2020 10:35 AM CDT Operative Progress Note Surgical Team: Surgeon(s) and Role: * Hipolito Reyes MD - Primary * Rito Sloan MD - Resident - Assisting Anesthesiologist: Luiza Robbins MD [employer] METAL: Sandra Modi CRNA Shared Services Representative: Jaimee Davis RN; Nazanin Doyle RN [employer] Supervisor: RT Lissette Scrub Relief: ST Tiffanie Scrub: Carly Art RN DATE OF SURGERY : 04/14/2020 Preoperative Diagnosis: Pre-op Diagnosis * Bilateral nephrolithiasis [N20.0] Postoperative Diagnosis: Post-op Diagnosis * Bilateral nephrolithiasis [N20.0] Procedure(s): Procedure(s) (LRB): SECOND LOOK PERCUTANEOUS NEPHROLITHOTOMY (Left) Operative Findings: Left nephrolithiasis Estimated Blood Loss: 100 mL Intraoperative Fluids: Per anesthesia mls Specimens: No specimen collected in procedure Implants: Nothing was implanted during the procedure Blood/Blood Products Transfused: 0 mls Complications: None Condition on Discharge from the operating room was stable Hipolito Reyes MD Date: 04/14/2020 Time: 4:52 PM TEACHING ATTESTATION : I was present and directly participated in the entire procedure (including opening and closing). * Plan of Care - Naomi Fontaine RN - 04/14/2020 12:29 AM CDT Problem: Health Behavior: Goal: Understanding of discharge needs will improve Outcome: Progressing Problem: Lack of Knowledge: Goal: Ability to state signs and symptoms to report to health care provider will improve Outcome: Progressing Goal: Understanding of ways to prevent infection will improve Outcome: Progressing Problem: Nutritional: Goal: Nutritional status will improve Outcome: Progressing Problem: Physical Regulation: Goal: Diagnostic test results will improve Outcome: Progressing Goal: Will remain free from infection Outcome: Progressing Goal: Ability to maintain vital signs within normal range will improve Outcome: Progressing Problem: Respiratory: Goal: Ability to maintain normal respiratory secretions will improve Outcome: Progressing Problem: Skin Integrity: Goal: Demonstration of wound healing without infection will improve Outcome: Progressing Goal: Complications related to intravenous access or infusion will be avoided or minimized Outcome: Progressing Goals: Clinical Goals for the Shift: pain control, monitor neph tube, tolerate diet, NPO at midnight Summary: Pt is A&Ox4, vital signs are stable. Pt is up ad brendan. Neph tube is leaking at site, dressed with drainage gauze, abd and tape. Rn will continue to monitor. Urine is pink tinged. * Plan of Care - Brianne Cabral RN - 04/13/2020 6:41 PM CDT Problem: Health Behavior: Goal: Understanding of discharge needs will improve Outcome: Progressing Problem: Lack of Knowledge: Goal: Ability to state signs and symptoms to report to health care provider will improve Outcome: Progressing Goal: Understanding of ways to prevent infection will improve Outcome: Progressing Problem: Nutritional: Goal: Nutritional status will improve Outcome: Progressing Problem: Physical Regulation: Goal: Diagnostic test results will improve Outcome: Progressing Goal: Will remain free from infection Outcome: Progressing Goal: Ability to maintain vital signs within normal range will improve Outcome: Progressing Problem: Respiratory: Goal: Ability to maintain normal respiratory secretions will improve Outcome: Progressing Problem: Skin Integrity: Goal: Demonstration of wound healing without infection will improve Outcome: Progressing Goal: Complications related to intravenous access or infusion will be avoided or minimized Outcome: Progressing Goals: Clinical Goals for the Shift: Pain control, monitor output from drain, tolerate diet Summary: Pain controlled with prn oxycodone, left nephrostomy tube dressing changed x3, tolerating diet, ambulating in room, voiding w/o difficulty. * Plan of Care - Johanne Zuniga RN - 04/13/2020 2:40 AM CDT Goals: Clinical Goals for the Shift: pain control, monitor I/O, VSS, ambulate Summary: Pt's pain controlled with tylenol and Tordal. One dose of oxycodone given tonight. Pt walked to the door and back to bed. VSS. Urine output is adequate, red/prashant. Pt's L flank dressing changed twice, soaked the whole bed. Site is leaking. Pt resting comfortably with SCDs on. Problem: Health Behavior: Goal: Understanding of discharge needs will improve Outcome: Progressing Problem: Lack of Knowledge: Goal: Ability to state signs and symptoms to report to health care provider will improve Outcome: Progressing Goal: Understanding of ways to prevent infection will improve Outcome: Progressing Problem: Nutritional: Goal: Nutritional status will improve Outcome: Progressing Problem: Physical Regulation: Goal: Diagnostic test results will improve Outcome: Progressing Goal: Will remain free from infection Outcome: Progressing Goal: Ability to maintain vital signs within normal range will improve Outcome: Progressing Problem: Respiratory: Goal: Ability to maintain normal respiratory secretions will improve Outcome: Progressing Problem: Skin Integrity: Goal: Demonstration of wound healing without infection will improve Outcome: Progressing Goal: Complications related to intravenous access or infusion will be avoided or minimized Outcome: Progressing * Op Note - Hipolito Reyes MD - 04/12/2020 12:55 PM CDT Operative Report SURGEON: Hipolito Reyes MD SURGICAL TEAM: Shared Services Representative: Thea Jaimes RN; Nataliia Bone RN; Khadra Alvarez RN Scrub: Ziggy Toure RN DATE OF SURGERY : 04/12/2020 PREOPERATIVE DIAGNOSIS: Pre-op Diagnosis * Bilateral nephrolithiasis [N20.0] POSTOPERATIVE DIAGNOSIS: Post-op Diagnosis * Bilateral nephrolithiasis [N20.0] PROCEDURE: PERCUTANEOUS NEPHROLITHOTOMY (L) INDICATION FOR PROCEDURE: Zoey is a 49yoM with a large left renal stone burden as well as a 1cm right renal stone. He does not want the right stone treated, and we are here to take care of his left side with PCNL. ANESTHESIA: General IMPLANTS: Nothing was implanted during the procedure OPERATIVE DETAILS Estimated Blood Loss: No blood loss documented. Intraoperative Fluids: See anesthesia records Blood/Blood Products Transfused: None Specimens: Order Name Source Comment Collection Info Order Time TISSUE AEROBIC CULTURE Kidney Left Kidney Stone for Routine Culture 04/12/2020 2:30 PM Is patient in the OR? Yes COMPREHENSIVE METABOLIC PANEL 04/08/2020 8:14 AM CBC WITHOUT DIFFERENTIAL 04/08/2020 8:14 AM TYPE AND SCREEN 04/08/2020 8:14 AM Has the patient had Daratumumab or Isatuximab in the past 6 months? Unknown TYPE AND SCREEN 04/12/2020 10:48 AM Has the patient had Daratumumab or Isatuximab in the past 6 months? Unknown BASIC METABOLIC PANEL 04/12/2020 6:49 PM CBC WITHOUT DIFFERENTIAL 04/12/2020 6:49 PM SURGICAL PATHOLOGY Calculus/calculi/stone, gross and Chemical Analysis Collected By: Hipolito Travis MD 04/12/2020 2:27 PM PROCEDURE: After informed consent was obtained, the patient was taken to the operating room and administered ageneral anesthetic while on the hospital stretcher. The patient received antibiotics prior to the start of the procedure. A timeout was performed prior to the start of the procedure. While on the stretcher, I performed flexible cystoscopy and placed a 5 bahamian left ureteral access catheter over a motion wire, which was later attached to IV extension tubing for contrast infusion. A 16 fr means wasplaced. The patient was then transitioned to a prone position on the hospital bed with arms upwardsin a superman position. Appropriate padding was placed so as to prevent neurological and musculoskel etal injuries. The skin of the back on the left side was prepped with chlorhexidine. A sterile drape was then applied. Using fluoroscopy we identified the area of the left kidney, and appreciated that the stones were radio-opaque. With contrast infused, we appreciated normal renal anatomy and what appeared to be favorable location for an upper pole puncture below the 11th rib and very medial. Using triangulation technique, we were able to puncture this upper pole calyx on the first pass of the needle. A straight HiWire was able to then pass all the way down the ureter and the needle was removed. We advanced an 8/10 fr dilator underfluoroscopic guidance into the ureter, then removed the inner 8 fr and HiWire. We advanced a motion wire and an ultrastiff wire without difficulty to the bladder, and removed the 10 fr. The motion was secured to the drape, and we passed a 24 Fr Bard X-Force balloon under fluoroscopic guidance into the calyx of puncture, which inflated and allowed sheath passage under fluoro guidance without difficulty. Rigid nephroscopy revealed calcium oxalate appearing stone mostly in the renal pelvis and also in the mid and lower poles. We used the Lithoclast as well as the Cook snare to remove stones with the rigid nephroscope, and the [place] Specpage 2.4 Fr basket to remove stones with the Storz digital flexible nephroscope. We did appreciate an area of mucosal erosion in a tight infundibulum to the lower pole. Digital flexible antegrade ureteroscopy was performed and we removed several stone fragments from the ureter, and ultimately could pass the ureteroscope into the ureter. Repeated flexible nephroscopy removed a few more small fragments but we felt we had largely removed thestone material. We placed an 8.5 Fr [place] loop into the left lower pole under fluoro guidance, removed the sheath, held pressure to the back, and then passed a 5 fr catheter into the distal left ureter. Nephrostogram through the [place] loop revealed good positioning of tubes. The Tubes on the back were sutured using 2-0 silk, a dressing on the back was applied, and his 5 bahamian catheter through the urethra was removed. He was then placed into supine position, extubated without difficulty, and taken to recovery in good condition. Operative findings: Left nephrolithiasis Complications: none Condition on Discharge from the operating room was stable Hipolito Reyes MD Date: 04/12/2020 Time: 7:10 PM TEACHING ATTESTATION : I was present and directly participated in the entire procedure (including opening and closing). * Brief Op Note - Hipolito Reyes MD - 04/12/2020 12:55 PM CDT Operative Progress Note Surgical Team: Surgeon(s) and Role: * Hipolito Reyes MD - Primary * Jace Houston MD - Resident - Assisting No anesthesia staff entered. Shared Services Representative: Thea Jaimes RN; Nataliia Bone RN; Khadra Alvarez RN Scrub: Ziggy Toure RN DATE OF SURGERY : 04/12/2020 Preoperative Diagnosis: Pre-op Diagnosis * Bilateral nephrolithiasis [N20.0] Postoperative Diagnosis: Post-op Diagnosis * Bilateral nephrolithiasis [N20.0] Procedure(s): Procedure(s) (LRB): PERCUTANEOUS NEPHROLITHOTOMY (Left) Operative Findings: Left nephrolithiasis Estimated Blood Loss: 30 mL Intraoperative Fluids: Per anesthesia Specimens: ID Type Source Tests Collected by Time A : Left Kidney Stones for Chemical Analysis Tissue Calculus/calculi/stone, gross and Chemical Analysis SURGICAL PATHOLOGY Hipolito Reyes MD 04/12/2020 1427 Implants: Nothing was implanted during the procedure Blood/Blood Products Transfused: 0 mls Complications: None Condition on Discharge from the operating room was stable Hipolito Reyes MD Date: 04/12/2020 Time: 7:08 PM TEACHING ATTESTATION : I was present and directly participated in the entire procedure (including opening and closing). documented in this encounter Plan of Treatment Not on file documented as of this encounter Procedures Procedure Name Priority Date/Time Associated Diagnosis Comments CBC WITHOUT DIFFERENTIAL Timed 04/17/2020 11:04 PM CDT BASIC METABOLIC PANEL Timed 04/17/2020 11:04 PM CDT XR CHEST 1 VIEW ED Urgent/IP Urgent 04/17/2020 1:57 PM CDT BLOOD CULTURE Routine 04/17/2020 9:25 AM CDT BLOOD CULTURE Routine 04/17/2020 9:25 AM CDT URINE CULTURE Routine 04/17/2020 9:12 AM CDT CBC WITHOUT DIFFERENTIAL Timed 04/16/2020 9:57 PM CDT BASIC METABOLIC PANEL Timed 04/16/2020 9:57 PM CDT BLOOD CULTURE Routine 04/15/2020 7:19 PM CDT BLOOD CULTURE Routine 04/15/2020 7:00 PM CDT CBC WITHOUT DIFFERENTIAL Routine 04/15/2020 7:00 PM CDT URINE CULTURE Routine 04/15/2020 7:00 PM CDT BASIC METABOLIC PANEL Timed 04/15/2020 7:00 PM CDT CBC WITHOUT DIFFERENTIAL Timed 04/14/2020 11:59 PM CDT PHOSPHORUS Timed 04/14/2020 11:59 PM CDT MAGNESIUM Timed 04/14/2020 11:59 PM CDT BASIC METABOLIC PANEL Timed 04/14/2020 11:59 PM CDT FL FLUOROSCOPY < 1 HOUR IP Routine 04/14/2020 12:10 PM CDT PERCUTANEOUS NEPHROLITHOTOMY 04/14/2020 10:05 AM CDT Bilateral nephrolithiasis Case Notes 04/05 Approved to schedule Per email from Dr. George KF Special Needs Holmium laser CBC WITHOUT DIFFERENTIAL Timed 04/13/2020 9:04 PM CDT BASIC METABOLIC PANEL Timed 04/13/2020 9:[address] KUB STONE WO CONTRAST Timed 04/13/2020 7:19 AM CDT CBC WITHOUT DIFFERENTIAL Routine 04/13/2020 4:32 AM CDT BASIC METABOLIC PANEL Timed 04/13/2020 4:32 AM CDT XR CHEST 1 VIEW STAT 04/12/2020 6:05 PM CDT TISSUE AEROBIC CULTURE Routine 04/12/2020 2:30 PM CDT SURGICAL PATHOLOGY Routine 04/12/2020 2: 27 PM CDT Bilateral nephrolithiasis PERCUTANEOUS NEPHROLITHOTOMY 04/12/2020 12:29 PM CDT Bilateral nephrolithiasis Case Notes 04/05 approved to schedule per email from Dr. Linda MCGREGOR Special Needs Holmium laser TYPE AND SCREEN Timed 04/12/2020 11:10 AM CDT documented in this encounter Results * IR Antegrade Nephrostogram Existing Access Left (04/19/2020 1:23 PM CDT) Anatomical Region Laterality Modality Body Left Radio Fluoroscop y 04/19/2020 1:33 PM CDT Impressions 04/19/2020 5:12 PM CDT Patent left renal collecting system and ureter. PLAN: The patient is to follow up with his urologist Dr. Reyes today for review of images and possible removal of the percutaneous nephrostomy catheter. Dictated by: Roseanna Heller. The radiology attending physician has personally reviewed this study, and had reviewed and/or edited this written report and agrees with it. Electronically signed by: Raulito Junior M.D. Narrative 04/19/2020 5:12 PM CDT EXAMINATION: ??NEPHROSTOGRAM VIA EXISTING CATHETER HISTORY/INDICATION: ??49-year-old male with nephrolithiasis who recently underwent left percutaneous nephrolithotomy by Dr. Reyes. ??Percutaneous nephrostomy catheter was left in place. The patient presents today for nephrostogram to determine patency of the renal collecting system and ureter. ATTENDING PRESENCE: Dr Raulito Junior, the attending radiologist was present from the beginning to the end of the procedure. ??Luiza Waller PA-C was also present for the entire procedure. SEDATION: ??The patient did not require conscious sedation for the procedure. TECHNIQUE: ?? Prior to beginning the procedure, [place] Protocol was performed to confirm the patient's identity and the planned procedure. ??The fluoroscopy time has been recorded in the electronic medical record. consent was obtained. The patient was positioned on the fluoroscopy table and a digital advertising analyst image obtained. ??Contrast was injected through the patient's indwelling 8.5 [place] Islander percutaneous nephrostomy catheter. Multiple fluoroscopic images were obtained in different projections. At the end of the procedure, the catheter was reconnected to gravity drainage. ESTIMATED BLOOD LOSS: None CONDITION: Stable DISCHARGED TO: ??Recovery and then outpatient appointment with Dr. Reyes FINDINGS: ??To possible stones were noted within the middle and lower poles of the left kidney. ??The left renal collecting system is small and decompressed. ??However, there is passage of contrast into the patent ureter. ??Passage of contrast is noted into the bladder. Procedure Note Raulito Junior MD PhD - 04/19/2020 EXAMINATION: NEPHROSTOGRAM VIA EXISTING CATHETER HISTORY/INDICATION: 49-year-old male with nephrolithiasis who recently underwent left percutaneous nephrolithotomy by Dr. Reyes. Percutaneous nephrostomy catheter was left in place. The patient presents today for nephrostogram to determine patency of the renal collecting system and ureter. ATTENDING PRESENCE: Dr Raulito Junior, the attending radiologist was present from the beginning to the end of the procedure. Luiza Waller PA-C was also present for the entire procedure. SEDATION: The patient did not require conscious sedation for the procedure. TECHNIQUE: Prior to beginning the procedure, [place] Protocol was performed to confirm the patient's identity and the planned procedure. The fluoroscopy time has been recorded in the electronic medical record. consent was obtained. The patient was positioned on the fluoroscopy table and a digital advertising analyst image obtained. Contrast was injected through the patient's indwelling 8.5 [place] Islander percutaneous nephrostomy catheter. Multiple fluoroscopic images were obtained in different projections. At the end of the procedure, the catheter was reconnected to gravity drainage. ESTIMATED BLOOD LOSS: None CONDITION: Stable DISCHARGED TO: Recovery and then outpatient appointment with Dr. Reyes FINDINGS: To possible stones were noted within the middle and lower poles of the left kidney. The left renal collecting system is small and decompressed. However, there is passage of contrast into the patent ureter. Passage of contrast is noted into the bladder. IMPRESSION: Patent left renal collecting system and ureter. PLAN: The patient is to follow up with his urologist Dr. Reyes today for review of images and possible removal of the percutaneous nephrostomy catheter. Dictated by: Chuy Heller The radiology attending physician has personally reviewed this study, and had reviewed and/or edited this written report and agrees with it. Electronically signed by: Raulito Junior M.D. Diane Degroot VP CLIENT SERVICES IMG IR PROCEDURES Final Result * (ABNORMAL) CBC without differential (04/17/2020 11:04 PM CDT) WBC 8.8 3.8 - 9.9 K/cumm [facility] Hgb 11.0(L) 13.0 - 17.5 g/dL [facility] Hct 32.2(L) 38.9 - 50.3 % [facility] Plt 305 150 - 400 K/cumm [facility] MPV 9.5 9.1 - 12.3 fL [facility] RBC 3.68(L) 4.30 - 5.80 M/cumm [facility] MCV 87.5 81.3 - 96.4 fL [facility] MCH 29.9 27.1 - 33.3 pg [facility] MCHC 34.2 32.3 - 35.7 g/dL [facility] RDW CV 13.5 11.1 - 14.9 % [facility] RDW SD 43.6 35.7 - 48.1 fL [facility] NRBC abs 0.00 0.00 - 0.01 K/cumm [facility] Blood specimen (specimen) 04/17/2020 11:04 PM CDT 04/17/2020 11:25 PM CDT Hipolito Reyes MD LAB BLOOD ORDERABLE S Final Result [facility] Department [place] [address] * Basic metabolic panel (04/17/2020 11:04 PM CDT) Sodium 137 135 - 145 mmol/L [facility] Potassium, pl 3.9 3.3 - 4.9 mmol/L [facility] Chloride 103 97 - 110 mmol/L [facility] CO2 24 22 - 32 mmol/L [facility] Anion gap 10 2 - 15 mmol/L [facility] BUN 13 8 - 25 mg/dL [facility] Creatinine 1.10 0.80 - 1.30 mg/dL [facility] Glucose 126 70 - 199 mg/dL [facility] Comment: Interpretive Data Fasting glucose >/= [...] interpretive data was last revised 2017. Calcium 8.7 8.5 - 10.3 mg/dL [facility] Blood specimen (specimen) 04/17/2020 11:04 PM CDT 04/17/2020 11:23 PM CDT Hipolito Reyes MD LAB BLOOD ORDERABLE S Final Result [facility] Department [place] [address] * XR Chest 1 View (04/17/2020 1:57 PM CDT) Anatomical Region Laterality Modality Body, Chest N/A Computed Radiogr aphy 04/17/2020 6:32 PM CDT Impressions 04/17/2020 6:32 PM CDT Comparison with prior examination from 04/12/2020. In the interval, there is been no change in the left basal atelectasis. Right lung is clear. No focal pneumonic consolidation pneumothorax seen. Heart is at the upper limits of normal. Electronically signed by: Obey Parsons M.D., MPH Narrative 04/17/2020 6:32 PM CDT EXAMINATION: 1 view chest radiograph Procedure Note Obey Parsons MD - 04/17/2020 EXAMINATION: 1 view chest radiograph IMPRESSION: Comparison with prior examination from 04/12/2020. In the interval, there is been no change in the left basal atelectasis. Right lung is clear. No focal pneumonic consolidation pneumothorax seen. Heart is at the upper limits of normal. Electronically signed by: Obey Parsons M.D., MPH Hipolito Reyes MD IMG XR PROCEDURES F inal Result * Blood culture Blood Antecubital, left (04/17/2020 9:25 AM CDT) Report Final Report: No growth [facility] Blood specimen (specimen) (Antecubital, left) 04/17/2020 9:25 AM CDT 04/17/2020 10:27 AM CDT Narrative RYAN CARDENAS - 04/21/2020 12:00 PM CDT 1. ?Blood cultures are incubated for 4 days on a continuously monitored blood culture system. The first report of a negative culture is issued within 24 hours of receipt of the specimen in the laboratory. 2. ?Positive culture results are reported as soon as they are detected. 3. ?The most important factor for detection of microbes in the setting of bloodstream infection is the volume of blood submitted for culture. Failure to collect an optimal blood volume can result in false negative blood cultures. For pediatric patients, the recommended blood volume to collect is 1 mL of blood per year of patient age (up to 20 mL) per blood culture set. For adult patients, 20 mL of blood, divided equally between aerobic and anaerobic blood culture bottles, is recommended for each blood culture set. 4. ?For blood cultures with Gram-positive cocci, a rapid molecular test for organism identification may be performed using the Verigene Gram-Positive Blood Culture Assay. This assay detects microbial DNA in positive blood culture broth via hybridization of target DNA to capture oligonucleotides on a microarray. This assay has been cleared by the [place] Food and Drug Administration and its performance characteristics have been verified by the [facility]. 5. ?For questions about this culture, contact the Microbiology Laboratory at [phone]. Interpretive data was last revised on 2020. Hipolito Reyes MD LAB MICROBIOLOGY - GENERAL ORDERABLES Final Result [facility] Department [place] [address] * Blood culture Blood Antecubital, right (04/17/2020 9:25 AM CDT) Report Final Report: No growth RYAN [facility] Blood specimen (specimen) (Antecubital, right) 04/17/2020 9:25 AM CDT 04/17/2020 10:27 AM CDT Narrative RYAN [facility] - 04/21/2020 12:00 PM CDT 1. ?Blood cultures are incubated for 4 days on a continuously monitored blood culture system. The first report of a negative culture is issued within 24 hours of receipt of the specimen in the laboratory. 2. ?Positive culture results are reported as soon as they are detected. 3. ?The most important factor for detection of microbes in the setting of bloodstream infection is the volume of blood submitted for culture. Failure to collect an optimal blood volume can result in false negative blood cultures. For pediatric patients, the recommended blood volume to collect is 1 mL of blood per year of patient age (up to 20 mL) per blood culture set. For adult patients, 20 mL of blood, divided equally between aerobic and anaerobic blood culture bottles, is recommended for each blood culture set. 4. ?For blood cultures with Gram-positive cocci, a rapid molecular test for organism identification may be performed using the Verigene Gram-Positive Blood Culture Assay. This assay detects microbial DNA in positive blood culture broth via hybridization of target DNA to capture oligonucleotides on a microarray. This assay has been cleared by the [place] Food and Drug Administration and its performance characteristics have been verified by the [facility]. 5. ?For questions about this culture, contact the Microbiology Laboratory at [phone]. Interpretive data was last revised on 2020. Hipolito Reyes MD LAB MICROBIOLOGY - GENERAL ORDERABLES Final Result Performing Organization Address City/[facility] Co de Phone Number [facility] Department [place] [address] * Urine culture Urine, nephrostomy tube (04/17/2020 9:12 AM CDT) Report Final Report: No growth [facility] Urine, nephrostomy tube 04/17/2020 9:12 AM CDT 04/17/2020 10:26 AM CDT Narrative [facility] - 04/18/2020 11:52 AM CDT Indications for Culture:->Urology patient Testing performed by [facility] ([phone]) Hipolito Reyes MD LAB MICROBIOLOGY - GENERAL ORDERABLES Final Result Performing Organization Address [facility] de Phone Number [facility] Department [place] [address] * (ABNORMAL) CBC without differential (04/16/2020 9:57 PM CDT) WBC 9.7 3.8 - 9.9 K/cumm [facility] Hgb 11.3(L) 13.0 - 17.5 g/dL [facility] Hct 32.7(L) 38.9 - 50.3 % [facility] Plt 259 150 - 400 K/cumm [facility] MPV 9.7 9.1 - 12.3 fL [facility] RBC 3.75(L) 4.30 - 5.80 M/cumm [facility] MCV 87.2 81.3 - 96.4 fL [facility] MCH 30.1 27.1 - 33.3 pg [facility] MCHC 34.6 32.3 - 35.7 g/dL [facility] RDW CV 13.3 11.1 - 14.9 % [facility] RDW SD 42.4 35.7 - 48.1 fL [facility] NRBC abs 0.00 0.00 - 0.01 K/cumm [facility] Blood specimen (specimen) 04/16/2020 9:57 PM CDT 04/16/2020 10:24 PM CDT Hipolito Reyes MD LAB BLOOD ORDERABLE S Final Result [facility] Department [place] [address] * Basic metabolic panel (04/16/2020 9:57 PM CDT) Sodium 136 135 - 145 mmol/L [facility] Potassium, pl 3.6 3.3 - 4.9 mmol/L [facility] Chloride 103 97 - 110 mmol/L [facility] CO2 23 22 - 32 mmol/L [facility] Anion gap 10 2 - 15 mmol/L [facility] BUN 10 8 - 25 mg/dL [facility] Creatinine 1.17 0.80 - 1.30 mg/dL [facility] Glucose 123 70 - 199 mg/dL [facility] Comment: Interpretive Data Fasting glucose >/= [...] interpretive data was last revised 2017. Calcium 8.7 8.5 - 10.3 mg/dL [facility] Blood specimen (specimen) 04/16/2020 9:57 PM CDT 04/16/2020 10:24 PM CDT Hipolito Reyes MD LAB BLOOD ORDERABLE S Final Result Performing Organization Address City/State/[facility] Co de Phone Number [facility] Department [place] [address] * Blood culture Blood (04/15/2020 7:19 PM CDT) Report Final Report: No growth [facility] Blood specimen (specimen) 04/15/2020 7:19 PM CDT 04/15/2020 8:51 PM CDT Narrative [facility]YAN CARDENAS - 04/20/2020 7:01 AM CDT 1. ?Blood cultures are incubated for 4 days on a continuously monitored blood culture system. The first report of a negative culture is issued within 24 hours of receipt of the specimen in the laboratory. 2. ?Positive culture results are reported as soon as they are detected. 3. ?The most important factor for detection of microbes in the setting of bloodstream infection is the volume of blood submitted for culture. Failure to collect an optimal blood volume can result in false negative blood cultures. For pediatric patients, the recommended blood volume to collect is 1 mL of blood per year of patient age (up to 20 mL) per blood culture set. For adult patients, 20 mL of blood, divided equally between aerobic and anaerobic blood culture bottles, is recommended for each blood culture set. 4. ?For blood cultures with Gram-positive cocci, a rapid molecular test for organism identification may be performed using the SpaceListigene Gram-Positive Blood Culture Assay. This assay detects microbial DNA in positive blood culture broth via hybridization of target DNA to capture oligonucleotides on a microarray. This assay has been cleared by the [place] Food and Drug Administration and its performance characteristics have been verified by the [facility]. 5. ?For questions about this culture, contact the Microbiology Laboratory at [phone]. Interpretive data was last revised on 2020. Hipolito Reyes MD LAB MICROBIOLOGY - GENERAL ORDERABLES Final Result Performing Organization Address City/[facility]/ZIP Co de Phone Number [facility] CARDENA[facility] Department [place] [address] * (ABNORMAL) Basic metabolic panel (04/15/2020 7:00 PM CDT) Sodium 135 135 - 145 mmol/L [facility] Potassium, pl 3.7 3.3 - 4.9 mmol/L [facility] Chloride 106 97 - 110 mmol/L [facility] CO2 21(L) 22 - 32 mmol/L [facility] Anion gap 8 2 - 15 mmol/L [facility] BUN 13 8 - 25 mg/dL [facility] Creatinine 1.23 0.80 - 1.30 mg/dL [facility] Glucose 149 70 - 199 mg/dL [facility] Comment: Interpretive Data Fasting glucose >/= [...] interpretive data was last revised 2017. Calcium 8.6 8.5 - 10.3 mg/dL [facility] Blood specimen (specimen) 04/15/2020 7:00 PM CDT 04/15/2020 7:43 PM CDT Hipolito Reyes MD LAB BLOOD ORDERABLE S Final Result Performing Organization Address City/[facility]/ZIP Co de Phone Number [facility] CARDENA[facility] Department [place] [address] * (ABNORMAL) CBC without differential (04/15/2020 7:00 PM CDT) WBC 10.6(H) 3.8 - 9.9 K/cumm [facility] Hgb 11.3(L) 13.0 - 17.5 g/dL [facility] Hct 33.0(L) 38.9 - 50.3 % [facility] Plt 254 150 - 400 K/cumm [facility] MPV 9.8 9.1 - 12.3 fL [facility] RBC 3.77(L) 4.30 - 5.80 M/cumm [facility] MCV 87.5 81.3 - 96.4 fL [facility] MCH 30.0 27.1 - 33.3 pg [facility] MCHC 34.2 32.3 - 35.7 g/dL [facility] RDW CV 13.3 11.1 - 14.9 % [facility] RDW SD 43.0 35.7 - 48.1 fL [facility] NRBC abs 0.00 0.00 - 0.01 K/cumm [facility] Blood specimen (specimen) 04/15/2020 7:00 PM CDT 04/15/2020 7:44 PM CDT Hipolito Reyes MD LAB BLOOD ORDERABLE S Final Result Performing Organization Address City/[facility]/ZIP Co de Phone Number [facility] [place] [address] * Urine culture Urine, nephrostomy tube (04/15/2020 7:00 PM CDT) Report Final Report: No growth [facility] Urine, nephrostomy tube 04/15/2020 7:00 PM CDT 04/15/2020 8:40 PM CDT Narrative [facility] - 04/16/2020 9:04 PM CDT Indications for Culture:->Urology patient Testing performed by [facility] ([phone]) Hipolito Reyes MD LAB MICROBIOLOGY - GENERAL ORDERABLES Final Result [facility] [place] [address] * Blood culture Blood (04/15/2020 7:00 PM CDT) Report Final Report: No growth [facility] CARDENAS Blood specimen (specimen) 04/15/2020 7:00 PM CDT 04/15/2020 8:02 PM CDT Narrative RYAN ACOSTA - 04/20/2020 7:01 AM CDT 1. ?Blood cultures are incubated for 4 days on a continuously monitored blood culture system. The first report of a negative culture is issued within 24 hours of receipt of the specimen in the laboratory. 2. ?Positive culture results are reported as soon as they are detected. 3. ?The most important factor for detection of microbes in the setting of bloodstream infection is the volume of blood submitted for culture. Failure to collect an optimal blood volume can result in false negative blood cultures. For pediatric patients, the recommended blood volume to collect is 1 mL of blood per year of patient age (up to 20 mL) per blood culture set. For adult patients, 20 mL of blood, divided equally between aerobic and anaerobic blood culture bottles, is recommended for each blood culture set. 4. ?For blood cultures with Gram-positive cocci, a rapid molecular test for organism identification may be performed using the SpaceListigene Gram-Positive Blood Culture Assay. This assay detects microbial DNA in positive blood culture broth via hybridization of target DNA to capture oligonucleotides on a microarray. This assay has been cleared by the [place] Food and Drug Administration and its performance characteristics have been verified by the [facility]. 5. ?For questions about this culture, contact the Microbiology Laboratory at [phone]. Interpretive data was last revised on 2020. Hipolito Reyes MD LAB MICROBIOLOGY - GENERAL ORDERABLES Final Result [facility] [place] [address] * Phosphorus (04/14/2020 11:59 PM CDT) Phosphorus, pl 2.7 2.3 - 4.5 mg/dL [facility] Blood specimen (specimen) 04/14/2020 11:59 PM CDT 04/15/2020 12:33 AM CDT Hipolito Reyes MD LAB BLOOD ORDERABLE S Final Result Performing Organization Address City/[facility] Co de Phone Number [facility] [place] [address] * Magnesium (04/14/2020 11:59 PM CDT) Pathologist [facility] [place] Magnesium 1.6 1.4 - 2.5 mg/dL [facility] Blood specimen (specimen) 04/14/2020 11:59 PM CDT 04/15/2020 12:33 AM CDT Hipolito Reyes MD LAB BLOOD ORDERABLE S Final Result Performing Organization Address [facility] de Phone Number [facility] [place] [address] * (ABNORMAL) Basic metabolic panel (04/14/2020 11:59 PM CDT) Pathologist [facility] [place] Sodium 135 135 - 145 mmol/L [facility] Potassium, pl 3.9 3.3 - 4.9 mmol/L [facility] Chloride 104 97 - 110 mmol/L [facility] CO2 23 22 - 32 mmol/L [facility] Anion gap 8 2 - 15 mmol/L [facility] BUN 16 8 - 25 mg/dL [facility] Creatinine 1.32(H) 0.80 - 1.30 mg/dL [facility] Glucose 129 70 - 199 mg/dL [facility] Comment: Interpretive Data Fasting glucose >/= [...] interpretive data was last revised 2017. Calcium 8.3(L) 8.5 - 10.3 mg/dL [facility] Blood specimen (specimen) 04/14/2020 11:59 PM CDT 04/15/2020 12:33 AM CDT Hipolito Reyes MD LAB BLOOD ORDERABLE S Final Result [facility] Department [place] [address] * (ABNORMAL) CBC without differential (04/14/2020 11:59 PM CDT) WBC 9.3 3.8 - 9.9 K/cumm [facility] Hgb 11.5(L) 13.0 - 17.5 g/dL [facility] Hct 34.2(L) 38.9 - 50.3 % [facility] Plt 242 150 - 400 K/cumm [facility] MPV 9.8 9.1 - 12.3 fL [facility] RBC 3.81(L) 4.30 - 5.80 M/cumm [facility] MCV 89.8 81.3 - 96.4 fL [facility] MCH 30.2 27.1 - 33.3 pg [facility] MCHC 33.6 32.3 - 35.7 g/dL [facility] RDW CV 13.8 11.1 - 14.9 % [facility] RDW SD 45.2 35.7 - 48.1 fL [facility] NRBC abs 0.00 0.00 - 0.01 K/cumm [facility] Blood specimen (specimen) 04/14/2020 11:59 PM CDT 04/15/2020 12:47 AM CDT Hipolito Reyes MD LAB BLOOD ORDERABLE S Final Result Performing Organization Address City/[facility]/ZIP Co de Phone Number [facility] Department of [place] [address] * FL Fluoroscopy < 1 Hour (04/14/2020 12:10 PM CDT) Narrative VIOLET - 04/14/2020 12:49 PM CDT The images from this study are not interpreted by Radiology. ??Please refer to the physician's procedure / OR operative note. us Hipolito Reyes MD IMG FLUOROSCOPY PRO CEDURES Final Result [facility] * (ABNORMAL) CBC without differential (04/13/2020 9:04 PM CDT) WBC 8.4 3.8 - 9.9 K/cumm [facility] Hgb 12.6(L) 13.0 - 17.5 g/dL [facility] Hct 37.9(L) 38.9 - 50.3 % [facility] Plt 282 150 - 400 K/cumm [facility] MPV 9.7 9.1 - 12.3 fL [facility] RBC 4.27(L) 4.30 - 5.80 M/cumm [facility] MCV 88.8 81.3 - 96.4 fL [facility] MCH 29.5 27.1 - 33.3 pg [facility] MCHC 33.2 32.3 - 35.7 g/dL [facility] RDW CV 13.9 11.1 - 14.9 % [facility] RDW SD 45.1 35.7 - 48.1 fL [facility] NRBC abs 0.00 0.00 - 0.01 K/cumm [facility] Blood specimen (specimen) 04/13/2020 9:04 PM CDT 04/13/2020 10:08 PM CDT us Diane Degroot VP CLIENT SERVICES LAB BLOOD ORDERABLES Final Res ult [facility] [place] [address] * Basic metabolic panel (04/13/2020 9:04 PM CDT) [facility] Signature Sodium 137 135 - 145 mmol/L [facility] Potassium, pl 3.9 3.3 - 4.9 mmol/L [facility] Chloride 105 97 - 110 mmol/L [facility] CO2 23 22 - 32 mmol/L [facility] Anion gap 9 2 - 15 mmol/L [facility] BUN 23 8 - 25 mg/dL [facility] Creatinine 1.30 0.80 - 1.30 mg/dL [facility] Glucose 116 70 - 199 mg/dL [facility] Comment: Interpretive Data Fasting glucose >/= [...] interpretive data was last revised 2017. Calcium 8.9 8.5 - 10.3 mg/dL [facility] Blood specimen (specimen) 04/13/2020 9:04 PM CDT 04/13/2020 10:10 PM CDT us Diane Degroot NP LAB BLOOD ORDERABLES Final Res ult [facility] [place] [address] * CT KUB Stone WO Contrast (04/13/2020 7:19 AM CDT) Anatomical Region Laterality Modality Abdomen N/A Computed Tomogra phy 04/13/2020 9:47 AM CDT Impressions 04/13/2020 9:56 AM CDT 1. ??Postsurgical changes from left percutaneous nephrolithotomy with two 9 mm remaining renal stone fragments in the lower pole of the left kidney. ?? 2. ??New left percutaneous nephrostomy tube with the tip terminating in the left ureteropelvic junction. 3. ??New nonobstructing 6 mm right renal stone at the right ureteropelvic junction. 4. ??8mm renal stone in the interpolar region of the right kidney is unchanged. Dictated by: Zulay Padilla M.D. The radiology attending physician has personally reviewed this study, and had reviewed and/or edited this written report and agrees with it. Electronically signed by: Obey Parsons M.D., MPH Narrative 04/13/2020 9:56 AM CDT EXAMINATION: ??Computed tomography of the abdomen and pelvis without intravenous contrast HISTORY: Nephrolithiasis and left hydronephrosis status post left percutaneous nephrolithotomy. TECHNIQUE: ??Transaxial computed tomographic images of the abdomen and pelvis ??were obtained without intravenous contrast according to the renal stone protocol. COMPARISON: 03/30/2020 FINDINGS: ?? Mild bibasal atelectasis is present. ??Otherwise, the lung bases are clear. ??Heart is normal in size without pericardial effusion. ??Aorta is normal in caliber and contour. Liver is normal. ??Gallbladder, pancreas, spleen, bilateral adrenal glands are normal. ?? Postsurgical changes from left percutaneous nephrolithotomy are noted. ??There is perinephritic fat stranding bilaterally. ??There is a new left percutaneous nephrostomy tube with the tip terminating in the left ureteropelvic junction. ??There are two 9 mm remaining renal stone fragments in the lower pole of the left kidney. ??The previously noted left hydronephrosis is resolved. ??There is a new nonobstructing 6 mm right renal stone at the right ureteropelvic junction. ??The 8mm renal stone in the interpolar region of the right kidney is unchanged. ??There is no hydronephrosis in the right kidney. ??Bladder is decompressed with a Means catheter. ??There is no free fluid or air in the abdomen or pelvis. ??There is no lymphadenopathy in the abdomen pelvis. Postsurgical changes of the ileocolic resection are noted. ??Bowel loops are normal in caliber without wall thickening. No suspicious osseous lesion. Procedure Note Obey Parsons MD - 04/13/2020 EXAMINATION: Computed tomography of the abdomen and pelvis without intravenous contrast HISTORY: Nephrolithiasis and left hydronephrosis status post left percutaneous nephrolithotomy. TECHNIQUE: Transaxial computed tomographic images of the abdomen and pelvis were obtained without intravenous contrast according to the renal stone protocol. COMPARISON: 03/30/2020 FINDINGS: Mild bibasal atelectasis is present. Otherwise, the lung bases are clear. Heart is normal in size without pericardial effusion. Aorta is normal in caliber and contour. Liver is normal. Gallbladder, pancreas, spleen, bilateral adrenal glands are normal. Postsurgical changes from left percutaneous nephrolithotomy are noted. There is perinephritic fat stranding bilaterally. There is a new left percutaneous nephrostomy tube with the tip terminating in the left ureteropelvic junction. There are two 9 mm remaining renal stone fragments in the lower pole of the left kidney. The previously noted left hydronephrosis is resolved. There is a new nonobstructing 6 mm right renal stone at the right ureteropelvic junction. The 8mm renal stone in the interpolar region of the right kidney is unchanged. There is no hydronephrosis in the right kidney. Bladder is decompressed with a Means catheter. There is no free fluid or air in the abdomen or pelvis. There is no lymphadenopathy in the abdomen pelvis. Postsurgical changes of the ileocolic resection are noted. Bowel loops are normal in caliber without wall thickening. No suspicious osseous lesion. IMPRESSION: 1. Postsurgical changes from left percutaneous nephrolithotomy with two 9 mm remaining renal stone fragments in the lower pole of the left kidney. 2. New left percutaneous nephrostomy tube with the tip terminating in the left ureteropelvic junction. 3. New nonobstructing 6 mm right renal stone at the right ureteropelvic junction. 4. 8mm renal stone in the interpolar region of the right kidney is unchanged. Dictated by: Zulay Padilla M.D. The radiology attending physician has personally reviewed this study, and had reviewed and/or edited this written report and agrees with it. Electronically signed by: Obey Parsons M.D., MPH Hipolito Reyes MD IM CT PROCEDURES F inal Result * CBC without differential (04/13/2020 4:32 AM CDT) [facility] WBC 9.5 3.8 - 9.9 K/cumm [facility] Hgb 13.1 13.0 - 17.5 g/dL [facility] Hct 39.7 38.9 - 50.3 % [facility] Plt 307 150 - 400 K/cumm [facility] MPV 9.5 9.1 - 12.3 fL [facility] RBC 4.48 4.30 - 5.80 M/cumm [facility] MCV 88.6 81.3 - 96.4 fL [facility] MCH 29.2 27.1 - 33.3 pg [facility] MCHC 33.0 32.3 - 35.7 g/dL [facility] RDW CV 13.5 11.1 - 14.9 % [facility] RDW SD 44.2 35.7 - 48.1 fL [facility] NRBC abs 0.00 0.00 - 0.01 K/cumm [facility] Blood specimen (specimen) 04/13/2020 4:32 AM CDT 04/13/2020 5:13 AM CDT Hipolito Reyes MD LAB BLOOD ORDERABLE S Final Result [facility] [place] [address] * (ABNORMAL) Basic metabolic panel (04/13/2020 4:32 AM CDT) [facility] Sodium 137 135 - 145 mmol/L [facility] Potassium, pl 4.3 3.3 - 4.9 mmol/L [facility] Chloride 97 97 - 110 mmol/L [facility] CO2 24 22 - 32 mmol/L [facility] Anion gap 16(H) 2 - 15 mmol/L [facility] BUN 23 8 - 25 mg/dL [facility] Creatinine 1.20 0.80 - 1.30 mg/dL [facility] Glucose 131 70 - 199 mg/dL [facility] Comment: Interpretive Data Fasting glucose >/= [...] interpretive data was last revised 2017. Calcium 8.9 8.5 - 10.3 mg/dL [facility] Blood specimen (specimen) 04/13/2020 4:32 AM CDT 04/13/2020 5:13 AM CDT Hipolito Reyes MD LAB BLOOD ORDERABLE S Final Result [facility] [place] [address] * XR Chest 1 View (Portable) (04/12/2020 6:05 PM CDT) Anatomical Region Laterality Modality Body, Chest N/A Computed Radiogr aphy 04/13/2020 7:26 AM CDT Impressions 04/13/2020 7:26 AM CDT Comparison is made to 10/07/2017. The patient status post cervical fusion. There is mild bibasilar atelectasis. No pneumothorax or pneumonic consolidation. No pleural effusion. Stable heart size. Electronically signed by: Tulio Azul M.D. Narrative 04/13/2020 7:26 AM CDT EXAMINATION: 1 view chest radiograph Procedure Note Tulio Azul MD - 04/13/2020 EXAMINATION: 1 view chest radiograph IMPRESSION: Comparison is made to 10/07/2017. The patient status post cervical fusion. There is mild bibasilar atelectasis. No pneumothorax or pneumonic consolidation. No pleural effusion. Stable heart size. Electronically signed by: Tulio A Raptis, M.D. Hipolito Reyes MD IMG XR PROCEDURES F inal Result * Tissue aerobic culture Stone Kidney (04/12/2020 2:30 PM CDT) Report Final Report: No growth [facility] Stone (Kidney) 04/12/2020 2: 30 PM CDT 04/13/2020 8:06 AM CDT Narrative [facility] - 04/15/2020 9:22 AM CDT Left Kidney Stone for Routine Culture Testing performed by [facility] ([phone]) Specimens submitted from normally sterile body sites will have all bacterial morphotypes identified. Specimens that contain grossly mixed kimberly and/or are from body sites that are not normally sterile will be examined for Staphylococcus aureus, Pseudomonas aeruginosa, beta-hemolytic strep, vancomycin-resistant Enterococcus and fungus. If any of these are isolated, the organism will be reported. Current interpretive data was last revised on 2017. Hipolito Reyes MD LAB MICROBIOLOGY - GENERAL ORDERABLES Final Result [facility] [place] [address] * Surgical pathology (04/12/2020 2:27 PM CDT) Tissue (Calculus/calculi /stone, gross and Chemical Analysis) 04/12/2020 2:27 PM CDT Narrative PATHOLOGY [facility] - 04/13/2020 12:05 PM CDT EPIC results best viewed via link to PDF [facility] [place] [address] SURGICAL PATHOLOGY REPORT FINAL WITH ADDENDUM Patient Name: ?? ZOEY JOSEPH Gender: ??M : ??1970 (Age: 49) Address: ??[address] [place] [address] ??[id number] Hospital #: ??[id number] Taken:04/12/2020 Received:04/12/2020 Reported: 04/13/2020 Patient Type: [facility] Inpatient ?? Service: Surgery Location: [place] [address] Physician(s): ??MD Jayla Fuentes M.D. Diagnosis: Left kidney, stones, removal ? - Lithiasis (gross examination only, sent for chemical analysis) sxv/04/13/2020 10:32 By this signature, I attest that the above diagnosis is based upon my personal examination of the slides(and/or other material indicated in the diagnosis). Marvel Jeronimo M.D. Report Electronically Reviewed and Signed Out By ??Marvel Jeronimo M.D. 04/13/2020 12:05:52 History: The patient is a 49-year-old man with bilateral nephrolithiasis. Operative procedure: Percutaneous nephrolithotomy; placement stent- ureteral; ureteroscopy; lithotripsy- laser Specimen(s) Received: A: Left kidney stones for chemical analysis Gross Description: Received fresh in a container labeled with the patient's name, MRN, and designated left kidney stones for chemical analysis are 11, ragged de leon-brown calculi/fragments ranging from 0.2 cm up to 1.4 x 0.8 x 0.5 cm. ??The calculi are entirely submitted for chemical analysis. PA(s): ESTRELLA Beltran ([facility]) By this signature, I attest that the above diagnosis is based upon my personal examination of the slides(and/or other material). Addenda/Procedures Addendum Ordered: 04/21/2020 Status: Signed Out Addendum Complete: 04/21/2020 By: Marvel Jeronimo M.D. Addendum Signed Out: 04/21/2020 ?? Addendum Diagnosis A digital scan of the original reference lab report will begin on page two of this addendum. ?? By this signature, I attest that the above diagnosis is based upon my personal examination of the slides(and/or other material indicated in the diagnosis). ?? Marvel Jeronimo M.D. ??Report Electronically Reviewed and Signed Out By ??Marvel Jeronimo M.D. ??04/21/2020 13:05:07 ? The performance characteristics of some immunohistochemical stains, fluorescence in-situ hybridization tests and immunophenotyping by flow cytometry cited in this report (if any) were determined by the Surgical Pathology Department at [facility] as part of an ongoing food quality tester program and in compliance with federally mandated [...] by the Surgical Pathology Department of [facility]. ??It has not been cleared or approved by the U. S. Food and Drug Administration. IMAGES AND SCANNED DOCUMENTS, IF INCLUDED, ONLY VIEWABLE IN PDF VERSION OF REPORT Hipolito Reyes MD LAB PATHOLOGY ORDER DONELL Final Result PATHOLOGY [facility] 3rd Floor [place], [place] [phone] * Type and screen (04/12/2020 11:10 AM CDT) Juan, indirect Negative [facility] ABO Rh O [facility] Comment:28 - Hemolyzed speci men Blood specimen (specimen) 04/12/2020 11:10 AM CDT 04/12/2020 11:18 AM CDT Narrative [facility] - 04/12/2020 12:37 PM CDT Has the patient had Daratumumab or Isatuximab in the past 6 months?->Unknown Hipolito Reyes MD LAB BLOOD BANK TEST ORDERABLES Final Result [facility] [place] [address] documented in this encounter Visit Diagnoses Diagnosis Bilateral nephrolithiasis- Primary Preoperative testing Unspecified pre-operative examination Other acute kidney failure (HCC) Other acute kidney failure (HCC) documented in this encounter Admitting Diagnoses Diagnosis Bilateral nephrolithiasis documented in this encounter Administered Medications Inactive Administered Medications - up to 3 most recent administrations Medication Order MAR Action Action Date Dose Rate Site acetaminophen (TYLENOL) tablet 1,000 mg 1,000 mg, oral, Every 6 hours scheduled, First dose on Sat04/12/20 at 1930, Indications: PainIndications:Pain Given 04/18/2020 11:09 AM CDT 1,000 mg Given 04/17/2020 10:59 PM CDT 1,000 mg Given 04/17/2020 3:20 PM CDT 1,000 mg acetaminophen (TYLENOL) tablet 500 mg 500 mg, oral, Once, On Sat04/12/20 at 1700, For 1 dose, Phase I, When able to tolerate PO., Indications: PainIndications:Pain Given 04/12/2020 5:27 PM CDT 500 mg cefTRIAXone (ROCEPHIN) 1,000 mg/10 mL in sterile water (premix) 1,000 mg 1,000 mg, intravenous, at 600 mL/hr, Administer over 1 Minutes, Every 24 hours scheduled, First dose on Sat04/15/20 at 1800, Indications: Urinary Tract/Genitourinary InfectionIndications:Urinary Tract/Genitourinary Infection Given 04/17/2020 5:14 PM CDT 1,000 mg 6 00 mL/hr Given 04/16/2020 5:17 PM CDT 1,000 mg 600 mL/hr Given 04/15/2020 6:55 PM CDT 1,000 mg 600 mL/hr cephalexin (KEFLEX) capsule 500 mg 500 mg, oral, 4 times daily, First dose on Sat04/18/20 at 0800, Indications: Urinary Tract/Genitourinary InfectionIndications:Urinary Tract/Genitourinary Infection Given 04/18/2020 11:09 AM CDT 500 mg Given 04/18/2020 8:08 AM CDT 500 mg cholestyramine-aspartame (QUESTRAN LIGHT) 4 gram packet 1 packet 1 packet, oral, 2 times daily (for quinolones,etc), First dose on Sat04/12/20 at 1900, Indications: for bowel resectionIndications:for bowel resection Given 04/14/2020 4:30 AM CDT 1 p acket Given 04/13/2020 4:44 PM CDT 1 packet Given 04/13/2020 8:06 AM CDT 1 packet dextrose 5% and sodium chloride 0.45% infusion (premix) 75 mL/hr, intravenous, Continuous, Starting on Sat04/12/20 at 1830, Phase I & Post-op Floor New Bag 04/15/2020 8:22 PM CDT 75 mL/hr 75 mL/h r New Bag 04/15/2020 4:33 AM CDT 75 mL/hr 75 mL/hr Rate/Dose Verify 04/14/2020 7:00 PM CDT 75 mL/hr 75 mL/h r docusate sodium (COLACE) capsule 100 mg 100 mg, oral, 2 times daily PRN, constipation, Starting on 04/16/20 at 0808, Indications: constipationIndications:constipation Given 04/17/2020 9:16 AM CDT 100 mg Given 04/16/2020 9:19 PM CDT 100 mg enoxaparin (LOVENOX) syringe 40 mg 40 mg, subcutaneous, Daily (for enoxaparin), First dose on Sat04/12/20 at 2100, Indications: Deep Vein Thrombosis PreventionIndications:Deep Vein Thrombosis Prevention Given 04/17/2020 9:09 PM CDT 40 mg Left Lower Abdomen Given 04/16/2020 9:09 PM CDT 40 mg Le ft Lower Abdomen Given 04/15/2020 8:23 PM CDT 40 mg Le ft Lower Abdomen fentaNYL (SUBLIMAZE) preservative free injection 50 mcg 50 mcg, intravenous, Once as needed, uncontrolled pain on PACU admission, Starting on Millicent 04/14/20 at 1224, For 1 dose, Phase I, Then proceed to PACU 1st line analgesic., Indications: PainIndications:Pain Given 04/14/2020 12:30 PM CDT 50 mcg HYDROmorphone (DILAUDID) injection 0.2 mg 0.2 mg, intravenous, Administer over 2 Minutes, Every 10 min PRN, 1st line for pain, Starting on Sat04/12/20 at 1621, Phase I, Switch to 2nd line analgesic order if pain is uncontrolled or increasing after 2 doses. Notify Anesthesiologist if total PACU dose reaches 2 mg and pain score 5/10 or more., Indications: PainIndications:Pain Given 04/12/2020 6:24 PM CDT 0.2 mg Given 04/12/2020 5:03 PM CDT 0.2 mg HYDROmorphone (DILAUDID) injection 0.4 mg 0.4 mg, intravenous, Administer over 2 Minutes, Every 10 min PRN, 2nd line for pain, Starting on e 04/12/20 at 1621, Phase I, May administer 10 mintes after 2nd dose of 1st line analgesic agent for uncontrolled or increasing pain. Revert to 1st line dose if POSS of 3. Notify Anesthesiologist if total PACU dose reaches 2 mg and pain score 5/10 or more., Indications: PainIndications:Pain Given 04/12/2020 6:12 PM CDT 0.4 mg Given 04/12/2020 6:05 PM CDT 0.4 mg Given 04/12/2020 4:53 PM CDT 0.4 mg HYDROmorphone (DILAUDID) injection 0.4 mg 0.4 mg, intravenous, Administer over 2 Minutes, Every 10 min PRN, 1st line for pain, Starting on Millicent 04/14/20 at 1224, Phase I, Notify Anesthesiologist if total PACU dose reaches 2 mg and pain score 5/10 or more., Indications: PainIndications:Pain Given 04/14/2020 12:55 PM CDT 0. 4 mg Given 04/14/2020 12:46 PM CDT 0.4 mg ketorolac (TORADOL) 15 mg/mL injection 15 mg 15 mg, intravenous, Every 6 hours scheduled, First dose on Sat04/12/20 at 1930, For 3 days, Hold for creatinine above 1.2, Indications: PainIndications:Pain Given 04/15/2020 10:00 AM CDT 15 mg Given 04/15/2020 4:33 AM CDT 15 mg Given 04/14/2020 9:34 PM CDT 15 mg Lactated Ringer's (LR) infusion - ADS Override Pull Starting on Sat04/12/20 at 1631, For 1 dose, Created by valarie oakes Lactated Ringer's (LR) infusion 75 mL/hr, intravenous, Continuous, Starting on Sat04/12/20 at 1700, Phase I New Bag 04/12/2020 4:35 PM CDT 75 mL/hr 75 mL/ hr Lactated Ringer's (LR) infusion 30 mL/hr, intravenous, Continuous, Starting on Millicent 04/14/20 at 0845, Pre-Op New Bag 04/14/2020 10:00 AM CDT New Bag 04/14/2020 8:30 AM CDT 30 mL/hr 30 mL/hr ondansetron (ZOFRAN) injection 4 mg 4 mg, intravenous, Administer over 2 Minutes, Every 6 hours PRN, nausea, vomiting, if not tolerating PO, Starting on Sat04/12/20 at 1849, Indications: nausea and vomitingIndications:nausea and vomiting Given 04/14/2020 12:02 PM CDT 4 m g ondansetron ODT (ZOFRAN-ODT) disintegrating tablet 4 mg 4 mg, oral, Every 6 hours PRN, nausea, vomiting, Starting on Sat04/12/20 at 1849, Indications: nausea and vomitingIndications:nausea and vomiting Given 04/15/2020 7:10 PM CDT 4 mg oxyCODONE (ROXICODONE) tablet 5 mg 5 mg, oral, Every 4 hours PRN, 1st line for pain, Starting on Sat04/12/20 at 1849, May repeat in 1 hour if pain is uncontrolled or increasing. Max 2 doses within 1 dosing interval., Indications: PainIndications:Pain Given 04/17/2020 9:09 PM CDT 5 mg Given 04/17/2020 5:14 PM CDT 5 mg Given 04/17/2020 6:31 AM CDT 5 mg potassium chloride ER (KLOR-CON) extended release tablet 40 mEq 40 mEq, oral, Once, On 04/17/20 at 0700, For 1 dose, Do not crush, chew, cut, dissolve, open or otherwise manipulate tablet/capsule. Given 04/17/2020 6:31 AM CDT 40 mEq ramelteon (ROZEREM) tablet 8 mg 8 mg, oral, Nightly, First dose on Sat04/13/20 at 2145, Indications: Sleep-Onset InsomniaIndications:Sleep-Onset Insomnia Given 04/17/2020 9:09 PM CDT 8 m g Given 04/16/2020 9:09 PM CDT 8 mg Given 04/15/2020 8:22 PM CDT 8 mg sodium chloride 0.9% flush 0.5-20 mL 0.5-20 mL, intra-catheter, Every 8 hours scheduled, First dose on Sat04/12/20 at 2200, Flush volume based on line type and size. , Indications: FlushingIndications:Flushing Given 04/18/2020 4:54 AM CDT 10 mL Given 04/17/2020 9:10 PM CDT 10 mL Given 04/17/2020 3:20 PM CDT 10 mL sodium chloride 0.9% flush 0.5-20 mL 0.5-20 mL, intra-catheter, As needed, line care, Starting on Sat04/12/20 at 1849, Flush volume based on line type and size. Flush before and after each use. , Indications: FlushingIndications:Flushing Given 04/13/2020 8:08 AM CDT 10 mL documented in this encounter Active and Recently Administered Medications Times are shown in CDT. Scheduled Medication Order 04/16/2020 04/17/2020 04/18/2020 acetaminophen (TYLENOL) tablet 1,000 mg 1,000 mg, oral, Every 6 hours scheduled, First dose on Sat04/12/20 at 1930, Indications: Pain 0022 (Given - Provider: Melany Collado RN)0545 (Given - Provider: Melany Collado RN)0936 (Given - Provider: Ernestine Graham RN)1713 (Given - Provider: Ernestine Graham RN)2317 (Given - Provider: Charmaine Evans, AMIE) 0423 (Given - Provider: Charmaine Evans, AMIE)0917 (Given - Provider: Anisha Miller, AMIE)1520 (Given - Provider: Anisha Miller, AMIE)2110 (Not Given - Provider: Amna Appiah RN - Reason: Other)2259 (Given - Provider: Amna Appiah RN) 0454 (Not Given - Provider: Amna Appiah RN - Reason: Patient/family refused)1109 (Given - Provider: Anisha Miller, AMIE) cefTRIAXone (ROCEPHIN) 1,000 mg/10 mL in sterile water (premix) 1,000 mg (CANCELED) 1,000 mg, intravenous, at 600 mL/hr, Administer over 1 Minutes, Every 24 hours scheduled, First dose on Sat04/15/20 at 1800, Indications: Urinary Tract/Genitourinary Infection 1717 (Given - Provider: Ernestine Graham RN) 1714 (Given - Provider: Anisha Miller, AMIE) cephalexin (KEFLEX) capsule 500 mg 500 mg, oral, 4 times daily, First dose on Sat04/18/20 at 0800, Indications: Urinary Tract/Genitourinary Infection 0808 (Given - Provider: Anisha Miller, AMIE)1109 (Given - Provider: Anisha Miller, AMIE) cholestyramine-asparta me (QUESTRAN LIGHT) 4 gram packet 1 packet 1 packet, oral, 2 times daily (for quinolones,etc), First dose on Sat04/12/20 at 1900, Indications: for bowel resection 0936 (Not Given - Provider: Ernestine Graham RN - Reason: Patient/family refused)1610 (Not Given - Provider: Ernestine Graham RN - Reason: Patient/family refused) 0424 (Not Given - Provider: Charmaine Evans RN - Reason: Patient/family refused)1538 (Not Given - Provider: Anisha Miller RN - Reason: Patient/family refused) 0454 (Not Given - Provider: Amna Appiah RN - Reason: Patient/family refused) enoxaparin (LOVENOX) syringe 40 mg 40 mg, subcutaneous, Daily (for enoxaparin), First dose on Sat04/12/20 at 2100, Indications: Deep Vein Thrombosis Prevention 2108 (Given - Provider: Charmaine Evans RN) 2108 (Given - Provider: Amna Appiah RN) potassium chloride ER (KLOR-CON) extended release tablet 40 mEq (COMPLETED) 40 mEq, oral, Once, On Sat04/17/20 at 0700, For 1 dose, Do not crush, chew, cut, dissolve, open or otherwise manipulate tablet/capsule. 0631 (Given - Provider: Charmaine Evans RN) ramelteon (ROZEREM) tablet 8 mg 8 mg, oral, Nightly, First dose on Sat04/13/20 at 2145, Indications: Sleep-Onset Insomnia 2108 (Given - Provider: Charmaine Evans, RN) 2108 (Given - Provider: Amna Appiah, AMIE) sodium chloride 0.9% flush 0.5-20 mL 0.5-20 mL, intra-catheter, Every 8 hours scheduled, First dose on Sat04/12/20 at 2200, Flush volume based on line type and size. , Indications: Flushing 0522 (Not Given - Provider: Melany Collado RN - Reason: IV Infusing)1355 (Given - Provider: Ernestine rGaham RN)214 (Given - Provider: Charmaine Evans RN) 0623 (Given - Provider: Charmaine Evans RN)1520 (Given - Provider: Anisha Miller RN)211 (Given - Provider: Amna Appiah RN) 0454 (Given - Provider: Amna Appiah RN)1301 (Not Given - Provider: Anisha Miller RN - Reason: Loss of IV access) PRN Medication Order 04/16/2020 04/17/2020 04/18/2020 docusate sodium (COLACE) capsule 100 mg 100 mg, oral, 2 times daily PRN, constipation, Starting on Sat04/16/20 at 0808, Indications: constipation 2118 (Given - Provider: Charmaine Evans RN) 0916 (Given - Provider: Anisha Miller, AMIE)2107 (Not Given - Provider: Amna Appiah RN - Reason: Patient/family refused) ondansetron (ZOFRAN) injection 4 mg(Linked Group 1) 4 mg, intravenous, Administer over 2 Minutes, Every 6 hours PRN, nausea, vomiting, if not tolerating PO, Starting on Sat04/12/20 at 1849, Indications: nausea and vomiting ondansetron ODT (ZOFRAN-ODT) disintegrating tablet 4 mg(Linked Group 1) 4 mg, oral, Every 6 hours PRN, nausea, vomiting, Starting on Sat04/12/20 at 1848, Indications: nausea and vomiting oxyCODONE (ROXICODONE) tablet 5 mg 5 mg, oral, Every 4 hours PRN, 1st line for pain, Starting on Sat04/12/20 at 1848, May repeat in 1 hour if pain is uncontrolled or increasing. Max 2 doses within 1 dosing interval., Indications: Pain 1417 (Given - Provider: Ernestine Graham, RN)2119 (Given - Provider: Charmaine Evans, RN) 0228 (Given - Provider: Charmaine Evans, RN)0631 (Given - Provider: Charmaine Evans, RN)1714 (Given - Provider: Anisha Miller, AMIE)2108 (Given - Provider: Amna Appiah RN) sodium chloride 0.9% flush 0.5-20 mL 0.5-20 mL, intra-catheter, As needed, line care, Starting on Sat04/12/20 at 1848, Flush volume based on line type and size. Flush before and after each use. , Indications: Flushing Linked Groups Order Group 1: ondansetron ODT (ZOFRAN-ODT) disintegrating tablet 4 mgJump to med 4 mg, oral, Every 6 hours PRN, nausea, vomiting, Starting on Sat04/12/20 at 1848, Indications: nausea and vomiting Or ondansetron (ZOFRAN) injection 4 mgJump to med 4 mg, intravenous, Administer over 2 Minutes, Every 6 hours PRN, nausea, vomiting, if not tolerating PO, Starting on Sat04/12/20 at 1848, Indications: nausea and vomiting documented in this encounter Orders Medications Ordered That Buck ht Not Have Been Administered Count Last Ordered Date First Ordered Date ceFAZolin (ANCEF) 2,000 mg/2 0 mL in sterile water (premix) 2,000 mg 2 04/14/2020 04/12/20 ioversoL (OPTIRAY 320) injection 2 04/14/20 20 04/12/2020 naloxone (NARCAN) 0.4 mg/mL injection 0.04-0.4 mg 2 04/14/2020 04/12/2020 ondansetron (ZOFRAN) injection 4 mg 3 04/1404/12/2020 sodium chloride 0.9 % irrigation 2 04/14/20 20 04/12/2020 sodium chloride 0.9% flush 0.5-20 mL 3 03/2004/12/2020 diphenhydrAMINE (BENADRYL) i njection 12.5 mg 1 04/12/2020 oxyCODONE (ROXICODONE) tablet 5 mg 1 2019 Nursing Count Last Ordered Date First Orde red Date MEANS CATHETER - DISCONTINUE 1 04/13/2020 documented in this encounter 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
--- OUTSIDE RECORDS SUMMARY | 2024-08-23 08:06 | XMS_ITS | Encounter Summary ---
Author Organization [facility] Address [address] [place] [address] Phone Care Team Providers Care Machine Accountant Name Role Phone Jayla Phoenix MD Primary Care Provider [phone] Encounter Details Date Type Department Care Team (Late st Contact Info) Description 04/14/2020 Telephone [facility] - [facility] Urology [address] [facility] 11th [place] [address] [place] [address] Hipolito Reyes MD [address] [place] [address] Social History Tobacco Use Types Packs/Day Years Used Date Smoking Tobacco: Former Cigarettes 1.5 9 1 994 - 2003 Smokeless Tobacco: Never Alcohol Use Standard Drinks/Week Comments Not Currently 0 (1 standard drink = 0.6 oz pur e alcohol) Sex and Gender Information Value Date Recorded Sex Assigned at Not on file 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 Reyes sign them Saturday. documented in this encounter Plan of Treatment Not on file documented as of this encounter Visit Diagnoses Not on filedocumented in this encounter Care Teams Machine Accountant Relationship Specialty Start Date End Date Jayla Phoenix MD [address] [place], [place] [id number] PCP - General 08/07/17 documented as of this encounter
--- OUTSIDE RECORDS SUMMARY | 2024-08-23 08:06 | XMS_ITS | Encounter Summary ---
Author Organization [facility] Address [address] [place] [address] Care Team Providers Care Order Checker Name Role Phone Jayla Phoenix MD Primary Care Provider [phone] Reason for Referral * Diagnostic Imaging (Routine) - Closed Specialty Diagnoses / Procedures Referred By Contac t Referred To Contact Radiology Diagnoses Other acute kidney failure (HCC) Procedures IR Antegrade Nephrostogram Existing Access Left Diane Degroot NP [address] [address] Phone: tel: fax: [address] [address] Referral ID Status Reason Start Date Expiration Date Visits Re quested Visits Authorized [id number] Closed 04/15/2020 05/15/2021 1 1 Reason for Visit * Diagnostic Imaging (Routine) - Closed Specialty Diagnoses / Procedures Referred By Contac t Referred To Contact Radiology Diagnoses Other acute kidney failure (HCC) Procedures IR Antegrade Nephrostogram Existing Access Left Diane Degroot NP [address] [address] Phone: tel: fax: [address] [address] Referral ID Status Reason Start Date Expiration Date Visits Re quested Visits Authorized [id number] Closed 04/15/2020 05/15/2021 1 1 Encounter Details Date Type Department Care Team (Late st Contact Info) Description 04/19/2020 11:01 AM CDT - 04/19/2020 1:30 PM CDT Hospital Encounter [facility] Radiology [facility] [address] [facility] [place] [address] Mandi Blue MD [address] [facility] [address] [place] [address] Other acute kidney failure (CMS/HCC) Discharge Disposition: Discharge to home or [...] file Legal Sex Male 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 Gender Identity Male 02/04/2019 10:52 AM CDT Sexual Orientation Straight 02/04/2019 10 :52 AM CDT documented as of this encounter Last Filed Vital Signs Vital Sign Reading Time Taken Comments Blood Pressure 143/99 04/19/2020 1:25 PM CDT Pulse 78 04/19/2020 1:25 PM CDT Temperature 36.3 ??C (97.3 ??F) 04/19/2020 1:25 PM CD T Respiratory Rate 16 04/19/2020 1:25 PM CDT Oxygen Saturation 97% 04/19/2020 1:25 PM CDT Inhaled Oxygen Concentration - - Weight - - Height - - Body Mass Index - - documented in this encounter Discharge Diagnoses Diagnosis Encounter for fitting and adjustment of urinary device - ENCOUNTER FOR FITTING AND ADJUSTMENT OF URINARY DEVICE Personal history of urinary calculi - PERSONAL HISTORY OF URINARY CALCULI documented in this encounter Discharge Instructions * Discharge Instructions* Luiza Waller PA - 04/19/2020 1:23 PM CDT Interventional Radiology Outpatient Discharge Instructions/Note Diagnosis: kidney stones s/p extraction and placement of percutaneous nephrostomy tube Procedure: nephrostogram Limitations: [] No lifting greater than 5 pounds with [] Right [] Left arm for 7 days. [] You received medication that may affect your judgement. ?? Stay with a responsible person today. ?? Do not drive, operate machinery, make any legal or important decisions, or drink alcohol until tomorrow. ?? No smoking unless another adult is present. Other Diet: You may resume your previous diet. Medication: [x] Usual medications; check with your regular doctor for any questions. Do not take any new pain medicine, sleeping pills or sedatives unless approved by your doctor. [] Prescriptions given for: Procedure Site Care: [] teaching sheet given [] Skin glue was used to close your incision. See teaching sheet. [x] Keep site clean and dry. [] You may bathe or shower tomorrow. [] Change the dressing daily and if it becomes wet or dirty. [x] Cover entire area with plastic and tape down edges before showering to keep site clean and dry. [] The suture at your dialysis access site may be removed by the dialysis staff on ___/___/___ (date). To contact an Interventional Radiologist at [facility] call [phone] Saturday through Saturday from 7:30am-4:30pm. At all other times call [phone] and ask that the Interventional Radiologist be paged. To contact an Interventional Radiologist at [facility] call [phone] Saturday through Saturday from 7:30am-3:30pm. Special instructions: Please call Interventional Radiology for any procedure related questions or problems including: ?? Extreme swelling or bruising at the site. ?? Unusual drainage or bleeding from procedure site. ?? Fever of 101.5 F for more than 24 hours. ?? Severe procedure related pain. Follow up care: [x] Not needed with IR. Your urologist will see you today for review of the films and possible removal of nephrostomy catheter. documented in this encounter Medications at Time of Discharge cyanocobalamin, vitamin B-12, 5,000 mcg tablet, sublingualIndica tions:Prevention of Vitamin B12 Deficiency Place 1 tablet under the tongue early childhood director before breakfast losartan-hydroch lorothiazide (HYZAAR) 100-25 mg per tabletIndication s:hypertension Take 1 tablet by mouth nightly 02/23/2019 multivitamin capsuleIndicatio ns:Vitamin Deficiency Prevention Take 1 capsule by mouth early childhood director before breakfast cephalexin (KEFLEX) 500 mg capsuleIndicatio [...] 04/07/2020 0 documented as of this encounter Discharge Disposition Disposition Code Departure Means Destination Discharge to home or self care documented in this encounter Miscellaneous Notes * Post-Procedure Note - Luiza Waller PA - 04/19/2020 1:23 PM CDT Radiology Brief Post Procedure Note Attending: Raulito Junior M.D. Automotive Sales Executive: ESTRELLA Dixon Sedation/Anesthesia: None Pre-Op/Pre-Procedure Diagnosis: nephrolithiasis s/p extraction and placement of percutaneous nephrostomy catheter Post-Op/Post-Procedure Diagnosis: same Procedure Performed: left nephrostogram Procedure Findings: possible retained stones noted near the mid and lower poles, small decompressedcollecting system, patents ureter with drainage of contrast to the bladder. Complications: None Estimated Blood Loss: None Specimens: None Condition: Stable Full report to follow. * Pre-Procedure Note - Warren Samano MD - 04/19/2020 12:00 PM CDT Entered in error documented in this encounter Plan of Treatment Not on file documented as of this encounter Procedures Procedure Name Priority Date/Time Associated Diagnosis Comments NEPHROSTOGRAM THROUGH EXISTING CATHETER LEFT Schedule Routine, Read Routine (OP Routine) 04/19/2020 1:23 PM CDT Other acute kidney failure (CMS/HCC) documented in this encounter Results * IR [...] TECHNIQUE: ?? Prior to beginning the procedure, [place] Protocol was performed to confirm the patient's identity and the planned procedure. ??The fluoroscopy time has been recorded in the electronic medical record. consent was obtained. The patient was positioned on the fluoroscopy table and a merchandise planner image obtained. ??Contrast was injected through the patient's indwelling 8.5 Norwegian percutaneous nephrostomy catheter. Multiple fluoroscopic images were [...] system and ureter. ATTENDING PRESENCE: Dr Raulito Jnuior, the attending radiologist was present from the beginning to the end of the procedure. Luiza Waller PA-C was also present for the entire procedure. SEDATION: The patient did not require conscious sedation for the procedure. TECHNIQUE: Prior to beginning the procedure, [place] Protocol was performed to confirm the patient's identity and the planned procedure. The fluoroscopy time has been recorded in the electronic medical record. consent was obtained. The patient was positioned on the fluoroscopy table and a merchandise planner image obtained. Contrast was injected through the patient's indwelling 8.5 Norwegian percutaneous nephrostomy catheter. Multiple fluoroscopic images were [...] signed by: Raulito Junior M.D. Diane Degroot NP IMG IR PROCEDURES Final Result documented in this encounter Visit Diagnoses Diagnosis Other acute kidney failure (HCC) documented in this encounter Administered Medications Inactive Administered Medications - up to 3 most recent administrations Medication Order MAR Action Action Date Dose Rate Site iothalamate meglumine (CONRAY) 60 % injection Code/trauma/sedation medication, Starting on Tu04/19/20 at 1310 Given 04/19/2020 1:10 PM CDT 40 mL documented in this encounter Active and Recently Administered Medications Times are shown in CDT. PRN Medication Order 04/17/2020 04/18/2020 04/19/2020 iothalamate meglumine (CONRAY) 60 % injection (COMPLETED) Code/trauma/sedation medication, Starting on Sat04/19/20 at 1310 1310 (Given - Provid er: Raulito Junior MD PhD) documented in this encounter Orders Medications Ordered That Buck ht Not Have Been Administered Count Last Ordered Date First Ordered Date iothalamate meglumine (CONRA Y) 60 % injection 1 04/19/2020 Diet Count Last Ordered Date First Orde red Date ADULT DISCHARGE DIET 1 04/19/2020 Nursing Count Last Ordered Date First Orde red Date DISCHARGE ACTIVITY 2 04/19/2020 DISCHARGE CALL PROVIDER 5 04/19/2020 DISCHARGE DRESSING 1 04/19/2020 documented in this encounter Care Teams Order Checker Relationship Specialty Start Date End Date Jayla Phoenix MD [address] [place] [address] PCP - General 08/07/17 documented as of this encounter
--- OUTSIDE RECORDS SUMMARY | 2024-08-23 08:06 | XMS_ITS | Encounter Summary ---
Author Organization [facility] Address [address] [place] [address] Phone Care Team Providers Care Office Support Assistant Name Role Phone Jayla Phoenix MD Primary Care Provider [phone] Encounter Details Date Type Department Care Team (Late st Contact Info) Description 04/19/2020 Telephone [facility] Gastroenterology [address] [facility] 8th [place] [address] [place] [address] Bart Armendariz CMA Social History Tobacco Use Types Packs/Day Years Used Date Smoking Tobacco: Former Cigarettes 1.5 9 1 994 - 2003 Smokeless Tobacco: Never Alcohol Use Standard Drinks/Week Comments Not Currently 0 (1 standard drink = 0.6 oz pur e alcohol) Sex and Gender Information Value Date Recorded Sex Assigned at Not on file 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 Valenzuela: [id number] Rx #: [id number] Stelara 130MG/26ML solution Form [facility] Electronic PA Form documented in this encounter Plan of Treatment Not on file documented as of this encounter Visit Diagnoses Not on filedocumented in this encounter Care Teams Office Support Assistant Relationship Specialty Start Date End Date Jayla Phoenix MD [address] [place] [address] PCP - General 08/07/17 documented as of this encounter
--- OUTSIDE RECORDS SUMMARY | 2024-08-23 08:06 | XMS_ITS | Encounter Summary ---
Author Organization [facility] Address [address] [place] [address] Phone Care Team Providers Care Supervisor Steel Division Name Role Phone Jayla Phoenix MD Primary Care Provider [phone] Encounter Details Date Type Department Care Team (Late st Contact Info) Description 04/20/[address] 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 Delivery [facility] go to [facility]. He voiced understanding. [facility] has the actual infusion orders signed by Dr. Phoenix and will contact Kristian once the medication arrives to set up infusion documented in this encounter Plan of Treatment Not on file documented as of this encounter Visit Diagnoses Not on filedocumented in this encounter Care Teams Supervisor Steel Division Relationship Specialty Start Date End Date Jayla Phoenix MD [address] [place] [address] PCP - General 08/07/17 documented as of this encounter
--- OUTSIDE RECORDS SUMMARY | 2024-08-23 08:06 | XMS_ITS | Encounter Summary ---
Author Organization [facility] Address [address] [place] [address] Phone Care Team Providers Care Thoracic Medicine Physician Name Role Phone Jayla Phoenix MD Primary Care Provider [phone] Encounter Details Date Type Department Care Team (Late st Contact Info) Description 04/15/2020 Telephone [facility] Urology [address] [facility] [address] Office [address] [place] [address] Fouzia Ribeiro RMA Social History Tobacco Use Types Packs/Day Years Used Date Smoking Tobacco: Former Cigarettes 1.5 9 1 994 - 2003 Smokeless Tobacco: Never Alcohol Use Standard Drinks/Week Comments Not Currently 0 (1 standard drink = 0.6 oz pur e alcohol) Sex and Gender Information Value Date Recorded Sex Assigned at Not on file 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 He is also scheduled for other upcoming appointments * Telephone Encounter - Fouzia Ribeiro RMA - 04/15/2020 2:51 PM CDT ----- Message from Hipolito Reyes MD sent at 04/15/2020 10:07 AM CDT ----- Regarding: Follow-up Will Fouzia, Finished with Mr. Vasques yesterday - diagnosis left nephrolithiasis. He still has a left nephrostomy tube in place. Can you please coordinate the following for him: Have him go to IR at [facility] for left antegrade nephrostogram through the existing nephrostomy tube onT, 04/19? please evaluate for free flow of contrast all the way into the bladder. #Once he's done with this can he come to our office and I will discuss if we can remove nephrostomytube? It looks like 04/19 KUB and ultrasound in 6 weeks to evaluate for residual stones and hydronephrosis. [facility] - two urine collections and 1 blood collection Follow-up in clinic in 13 weeks. Thank you! -Orin documented in this encounter Plan of Treatment Not on file documented as of this encounter Visit Diagnoses Not on filedocumented in this encounter Care Teams Thoracic Medicine Physician Relationship Specialty Start Date End Date Jayla Phoenix MD [address] [place] [address] PCP - General 08/07/17 documented as of this encounter
--- OUTSIDE RECORDS SUMMARY | 2024-08-23 08:06 | XMS_ITS | Encounter Summary ---
Author Organization [facility] Address [address] [place] [address] Phone Care Team Providers Care Sports Team Manager Name Role Phone Jayla Phoenix MD Primary Care Provider [phone] Reason for Referral * Diagnostic Imaging (Routine) - Closed Specialty Diagnoses / Procedures Referred By Elina senior Referred To Contact Diagnoses Hydronephrosis with urinary obstruction due to renal calculus Bilateral nephrolithiasis Procedures US Kidney Complete Hipolito Reyes MD Phone: tel: fax: [address] [address] Referral ID Status Reason Start Date Expiration Date Visits Re quested Visits Authorized [id number] Closed 04/15/2020 05/15/2021 1 1 Encounter Details Date Type Department Care Team (Late st Contact Info) Description 04/15/2020 Orders Only [facility] Urology [address] [facility] Medical Office [address] [place] [address] Hipolito Reyes MD [address] [place] [address] Hydronephrosis with urinary obstruction due to renal calculus (Primary Dx); Bilateral nephrolithiasis Social History Tobacco Use Types Packs/Day Years Used Date Smoking Tobacco: Former Cigarettes 1.5 9 1 994 - 2002 Smokeless Tobacco: Never Alcohol Use Standard Drinks/Week Comments Not Currently 0 (1 standard drink = 0.6 oz pur e alcohol) Sex and Gender Information Value Date Recorded Sex Assigned at Not on file 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
--- OUTSIDE RECORDS SUMMARY | 2024-08-23 08:06 | XMS_ITS | Encounter Summary ---
Author Organization 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 Gender Identity Male 02/04/2019 10:52 AM CDT Sexual Orientation Straight 02/04/2019 10 :52 AM CDT documented as of this encounter Medications at Time of Discharge cyanocobalamin, vitamin B-12, 5,000 mcg tablet, sublingualIndica tions:Prevention of Vitamin B12 Deficiency Place [address] tongue [address] grader operator before breakfast losartan-hydroch lorothiazide (HYZAAR) 100-25 mg per tabletIndication s:hypertension Take 1 tablet by mouth nightly 02/23/2019 multivitamin capsuleIndicatio ns:Vitamin Deficiency Prevention Take [address] grader operator before breakfast cephalexin (KEFLEX) 500 mg capsuleIndicatio [...] Procedure Name Priority Date/Time Associated Diagnosis Comments FL FLUOROSCOPY < 1 HOUR IP Routine 04/14/2020 12:10 PM CDT documented in this encounter Results * FL Fluoroscopy < 1 Hour (04/14/2020 12:10 PM CDT) Narrative [facility] - 04/14/2020 12:49 PM CDT The images from this study are not interpreted by Radiology. ??Please refer to the physician's procedure / OR operative note. Hipolito Reyes MD IMG FLUOROSCOPY PRO CEDURES Final Result [facility] documented in this encounter Visit Diagnoses Not on filedocumented in this encounter Care Teams Preschool Substitute Teacher Relationship Specialty Start Date End Date Jayla Phoenix MD [address] [place] [address] PCP - General 08/07/17 documented as of this encounter
--- OUTSIDE RECORDS SUMMARY | 2024-08-23 08:06 | XMS_ITS | Encounter Summary ---
Author Organization [facility] Address [address] [place] [address] Phone Care Team Providers Care Pulp Plant Supervisor Name Role Phone Jayla Phoenix MD Primary Care Provider [phone] Encounter Details Date Type Department Care Team (Late st Contact Info) Description 04/28/2020 Telephone [facility] Urology [address] [facility] Medical Office [address] [place] [address] Fouzia Ribeiro RMA Social History Tobacco Use Types Packs/Day Years Used Date Smoking Tobacco: Former Cigarettes 1.5 9 1 994 - 2003 Smokeless Tobacco: Never Alcohol Use Standard Drinks/Week Comments Not Currently 0 (1 standard drink = 0.6 oz pur e alcohol) Sex and Gender Information Value Date Recorded Sex Assigned at Not on file 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 Orders have been faxed to [facility] [phone] and radiology [phone]. Rx has been sent to the patient local pharmacy. * Telephone Encounter - Fouzia Ribeiro RMA - 04/28/2020 8:12 AM CDT ----- Message from Hipolito Reyes MD sent at 04/27/2020 10:52 AM CDT ----- Regarding: FW: Non-Urgent Medical Question Contact: Sordarvin I prematurely sent the other message. Can you please also prescribe him augmentin 500 mg BID for 7 days? He should drop off his urine culture before starting this medication. ----- Message ----- From: LEONID Sanchez Sent: 04/26/2020 10:09 AM CDT To: Hipolito Reyes MD Subject: FW: Non-Urgent Medical Question ----- Message ----- From: LEONID Rucker Sent: 04/26/2020 9:33 AM CDT To: LEONID Sanchez Subject: FW: Non-Urgent Medical Question ----- Message ----- From: Kristian Vasques Sent: 04/26/2020 9:30 AM CDT To: Darrell Gu [facility] Subject: Non-Urgent Medical Question It's been a week since my discharge and I'm still experiencing low grade fevers every day (100-99).I have nigh sweats as well. I've been walking regularly and using a tread mill. Question is do I need another round of a stronger antibiotic? Thank You Kristian documented in this encounter Plan of Treatment Not on file documented as of this encounter Visit Diagnoses Not on filedocumented in this encounter Care Teams Pulp Plant Supervisor Relationship Specialty Start Date End Date Jayla Phoenix MD [address] [place] [address] PCP - General 08/07/17 documented as of this encounter
--- OUTSIDE RECORDS SUMMARY | 2024-08-23 08:06 | XMS_ITS | Encounter Summary ---
Author Organization [facility] Address [address] [place] [address] Phone Care Team Providers Care Lumber Tripper Name Role Phone Jayla Phoenix MD Primary Care Provider [phone] Reason for Visit * Reason Onset Date Comments Med Management 04/27/2020 Encounter Details Date Type Department Care Team (Late st Contact Info) Description 04/27/2020 Documentation [facility] Gastroenterology [address] [facility] Medical Office [address] [place] [address] Michelle Hazel RN Med Management Social History Tobacco Use Types Packs/Day Years Used Date Smoking Tobacco: Former Cigarettes 1.5 9 1 994 - 2003 Smokeless Tobacco: Never Alcohol Use Standard Drinks/Week Comments Not Currently 0 (1 standard drink = 0.6 oz pur e alcohol) Sex and Gender Information Value Date Recorded Sex Assigned at Not on file 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 AMIE Pinto CMA ?? Ok great. They have the orders at the infusion center and will call him to schedule infusion once they get the medicine Previous Messages ----- Message ----- From: Bart Armendariz CMA Sent: 04/20/2020 ?? 9:52 AM CDT To: Michelle Hazel RN It is getting mailed to Steve. ----- Message ----- From: Michelle Hazel RN Sent: 04/20/2020 ?? 9:27 AM CDT To: Bart Armendariz CMA The injections were approved a long time ago. Dated 03/17 in his noted from precert. [facility] hopefully delivering straight to steve and I told Kristian to have them deliver it there and not to him, it is a vial that needs to be mixed in the bag. Thank you! ----- Message ----- From: Bart Armendariz CMA Sent: 04/20/2020 ?? 9:13 AM CDT To: Michelle Hazel RN I got his [facility] infusion approved, now hope we get the injection approved, when it comes time. Doyou know when his injection is for every 8 weeks?, so I can start on the approval for this. documented in this encounter Plan of Treatment Not on file documented as of this encounter Visit Diagnoses Not on filedocumented in this encounter Care Teams Lumber Tripper Relationship Specialty Start Date End Date Jayla Phoenix MD [address] [place] [address] PCP - General 08/07/17 documented as of this encounter
--- OUTSIDE RECORDS SUMMARY | 2024-08-23 08:06 | XMS_ITS | Encounter Summary ---
Author Organization [facility] Address [address] [place] [address] Phone Care Team Providers Care Environmental Emergencies Planner Name Role Phone Jayla Phoenix MD Primary Care Provider [phone] Reason for Referral * Diagnostic Imaging (Routine) - Closed Specialty Diagnoses / Procedures Referred By Contac t Referred To Contact Diagnoses Fever of unknown origin Procedures XR Chest Pa Lateral 2 Views Hipolito Reyes MD Phone: tel: fax: External Order Referral ID Status Reason Start Date Expiration Date Visits Re quested Visits Authorized [id number] Closed 04/28/2020 05/28/2021 1 1 Encounter Details Date Type Department Care Team (Late st Contact Info) Description 04/28/2020 Orders Only [facility] Urology [address] [facility] Medical Office [address] [place] [address] Hipolito Reyes MD [address] [place] [address] Fever of unknown origin (Primary Dx) Social History Tobacco Use Types Packs/Day Years Used Date Smoking Tobacco: Former Cigarettes 1.5 9 1 994 - 2002 Smokeless Tobacco: Never Alcohol Use Standard Drinks/Week Comments Not Currently 0 (1 standard drink = 0.6 oz pur e alcohol) Sex and Gender Information Value Date Recorded Sex Assigned at Not on file 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 Gender Identity Male 02/04/2019 10:52 AM CDT Sexual Orientation Straight 02/04/2019 10 :52 AM CDT documented as of this encounter Ordered Prescriptions Prescription Sig Dispense Quantity Refills Last Filled Start Date End Date amoxicillin-clavul anate (Augmentin) 500-125 mg per tablet Take 1 tablet by mouth 2 (two) times a day for 7 days 14 tablet 04/28/2020 05/05/2020 documented in this encounter Plan of Treatment Scheduled Orders Name Type Priority Associated Diagnoses Orde r Schedule Urine culture Urine, clean voided Microbiology Routine Fever of unknown origin Expected: 04/28/2020, Expires: 10/26/2021 documented as of this encounter Results * XR Chest Pa [...] encounter Visit Diagnoses Diagnosis Fever of unknown origin- Primary Fever, unspecified Fever of unknown origin Fever, unspecified documented in this encounter Care Teams Environmental Emergencies Planner Relationship Specialty Start Date End Date Jayla Phoenix MD [address] [place] [address] PCP - General 08/07/17 documented as of this encounter
--- OUTSIDE RECORDS SUMMARY | 2024-08-23 08:07 | XMS_ITS | Encounter Summary ---
Author Organization [facility] Healthcare Address [address] [place] [address] Care Team Providers Care Hitch Technician Name Role Phone Jayla Phoenix MD Primary Care Provider Encounter Details Date Type Department Care Team (Late st Contact Info) Description 03/30/2020 Orders Only [facility] HealthCare/ Physicians [address] [place], [place] [id number] Corbin Duque MD [address] [place], [place] [id number] Pre-op testing (Primary Dx) Social History Tobacco Use Types Packs/Day Years Used Date Smoking Tobacco: Former Cigarettes 1.5 9 1 994 - 2003 Smokeless Tobacco: Never Alcohol Use Standard Drinks/Week Comments Not Currently 0 (1 standard drink = 0.6 oz pur e alcohol) Sex and Gender Information Value Date Recorded Sex Assigned at Not on file 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 Gender Identity Male 02/04/2019 10:52 AM CDT Sexual Orientation Straight 02/04/2019 10 :52 AM CDT documented as of this encounter Progress Notes * Kay Rodríguez MA - 03/30/2020 1:55 PM CDT Pre-op COVID-19 testing at [facility] documented in this encounter Miscellaneous Notes * Addendum Note - Lyla Arevalo RN - 03/30/2020 1:55 PM CDTAddended by: LYLA AREVALO on: 03/30/2020 03:29 PM Modules accepted: Orders * Addendum Note - Lyla Arevalo RN - 03/30/2020 1:55 PM CDTAddended by: LYLA AREVALO on: 03/30/2020 03:35 PM Modules accepted: Orders documented in this encounter Plan of Treatment Not on file documented as of this encounter Results * COVID-19 Coronavirus RNA Nasopharyngeal (03/30/2020 3:45 PM CDT) [facility] COVID-19 RNA Not Detected [facility] Comment: Interpretive Data Testing performed at [facility] Molecular Infectious Disease [facility]. The 2018-Novel Coronavirus Assay (COVID-19) Real Time RT-PCR assay is for in vitro diagnostic use under FDA emergency use authorization only. A negative RT-PCR result does not preclude infection with COVID-19 and should not be used as the sole basis for treatment or other patient management decisions. Additional sample types have been validated according to CLIA regulations. ?? Current Interpretive Data was last revised on 2019. Testing performed by: [facility], [address] [facility] [place] [address] Nasopharyngeal 03/30/2020 3: 45 PM CDT 03/31/2020 8:05 AM CDT Narrative [facility] - 03/31/2020 1:36 PM CDT Is the patient experiencing any symptoms consistent with COVID (eg. Fever, cough, shortness of breath)?->No What is the reason for testing?->Screening prior to scheduled (>12 hr) surgery or procedure us Corbin Duque MD LAB MICROBIOLOGY - GENERAL ORDERABLES Final Result [facility] [address] Department [place] [address] documented in this encounter Visit Diagnoses Diagnosis Pre-op testing- Primary Unspecified pre-operative examination Pre-op testing Unspecified pre-operative examination documented in this encounter Care Teams Hitch Technician Relationship Specialty Start Date End Date Jayla Phoenix MD [address] [place], [place] [id number] PCP - General 08/07/17 documented as of this encounter
--- OUTSIDE RECORDS SUMMARY | 2024-08-23 08:07 | XMS_ITS | Encounter Summary ---
Author Organization [facility] Healthcare Address [address] [place] [address] Care Team Providers Care Solar Systems Designer Name Role Phone Jayla Phoenix MD Primary Care Provider [phone] Encounter Details Date Type Department Care Team ([facility] st Contact Info) Description 04/14/2020 10:00 AM CDT Anesthesia Event [facility] Operating Room 1 [place] [address] Luiza Robbins MD [address] [place], [place] [id number] Laurie Trinh, CHIEF RESERVOIR ENGINEERING [address] [facility] [phone] [place] [address] Anesthesia Record Procedure Summary Procedure Name Responsible Anesthesiologist Anesthesia Start Time Anesthesia Stop Time SECOND LOOK PERCUTANEOUS NEPHROLITHOTOMY (Left: Flank) Luiza Robbins MD 04/14/20 1000 04/14/20 1222 Events Date Time Event Comment 04/14/2020 0758 In Preop 1000 An Start 1005 In Room 1005 An Start Data 1014 An Induction The patient was reevaluated immediately before moderate or deep sedation use and before anesthesia induction. 1016 An Intubation 1017 Anesthesia Ready 1035 Proc Start 1035 Incision Start 1036 Quick Note Face supported in Prone View, eyes visible and free of pressure 1210 Proc Fin 1212 An Extubation 1215 Out of Room 1222 Handoff to RN I completed my handoff [...] disposition at the time of handoff: PACU 1222 An Stop Meds Name Total midazolam PF 2 mg lidocaine 1 % PF 100 mg fentaNYL 250 mcg propofol 200 mg rocuronium 60 mg glycopyrrolate 0.6 mg neostigmine injection 1 mg/mL 3 mg ceFAZolin (ANCEF) 2,000 mg/20 mL in ster ile water (premix) 2,000 mg 2,000 mg esmolol 30 mg ondansetron (ZOFRAN) injection 4 mg 4 mg Lactated Ringer's (LR) infusion 500 mL * Agents Name O2% N2O O2 Air Sevoflurane Inspired Sevoflurane * Blood No blood administrations on file. Lines, Drains, and Airways Type Details Placement Removal Ureteral Drain/Stent 04/12/20; 1500; Lef t ureter; 5 Fr.; No 04/12/20 1500 by Nataliia Bone RN Nephrostomy 04/14/20; 1210; Left ; 8.5 Fr.; Yes 04/14/20 1210 by Nazanin Doyle RNFA Peripheral IV Placement Date: 04/12/20; Placement Time: 1113; Catheter Size: 18 G; Orientation: Left; Location: Hand; Site Prep: Chlorhexidine; Removal Date: 04/15/20; Removal Time: 1330; Removal Reason: Per order 04/12/20 1113 by Melany Rios RN 04/15/20 1330 by Magaly Garcia, AMIE RETIRED Surgical Site 04/12/20; 1416; Le ft; Flank; 04/15/20; 0600 04/12/20 1416 by Khadra Stoll RN 04/15/20 0600 by Magaly Garcia, AMIE Nephrostomy 04/12/20; 1527; Left ; (8.5); Yes; Disontinued in OR 04/12/20 1527 by Nataliia Bone RN 04/14/20 1042 by Nazanin Doyle RNFA Urethral Catheter Placement Date: 04/14/20; Placement Time: 1020; Inserted by: Nica Rivers MD; Type: Double-lumen, Non-latex; Size: 16 Fr.; Balloon Size: 10 mL; Urine Returned: Yes; Removal Date: 04/14/20; Removal Time: 1215; Removal Reason: Disontinued in OR 04/14/20 1020 by Nazanin Doyle RNFA 04/14/20 1215 by Nazanin Doyle RNFA ETT Placement Date: 04/14/20; Placement Time: 1033 (created via procedure documentation); Mask Ventilation: 1; Technique: Video laryngoscopy; Type: ETT - single; Single Lumen Tube Size: 8 mm; Cuffed: Yes; Laryngoscope: Juliana; Blade Size: 3; Location: Oral; Grade View: Grade I; Insertion Attempts: 1; Placement Verification: Auscultation, Capnometry; Removal Date: 04/14/20; Removal Time: 1212 04/14/20 1033 by Sandra Modi, COMB SETTER 04/14/20 1212 by Sandra Modi, COMB SETTER RETIRED Surgical Site 04/14/20; 1104; Le ft; Back; 04/15/20; 0600 04/14/20 1104 by Nazanin Doyle RNFA 04/15/20 0600 by Magaly Garcia RN documented in this encounter Social History Tobacco Use Types Packs/Day Years Used Date Smoking Tobacco: Former Cigarettes 1.5 9 1 994 - 2003 Smokeless Tobacco: Never Alcohol Use Standard Drinks/Week Comments Not Currently 0 (1 standard drink = 0.6 oz pur e alcohol) Sex and Gender Information Value Date Recorded Sex Assigned at Not on file 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 Gender Identity Male 02/04/2019 10:52 AM CDT Sexual Orientation Straight 02/04/2019 10 :52 AM CDT documented as of this encounter OR Notes * Anesthesia Postprocedure Evaluation - Rell Barnhart MD - 04/14/2020 1:20 PM CDT Patient: Kristian Vasques Procedure Summary Date: 04/14/20 Room / Location: [facility] OR POD 1 ROOM 324 / [facility] OR POD 1 Anesthesia Start: 1000 Anesthesia Stop: 1222 Procedure: SECOND LOOK PERCUTANEOUS NEPHROLITHOTOMY (Left Flank) Diagnosis: Bilateral nephrolithiasis (Bilateral nephrolithiasis [N20.0]) Surgeon: Hipolito Reyes MD Responsible Provider: Luiza Robbins MD Anesthesia Type: general ASA Status: 3 Anesthesia Type: general Last vitals BP 126/88 Pulse 85 Temp 36.3 ??C (97.3 ??F) (Temporal) Resp 15 SpO2 95% Anesthesia Post Evaluation Patient location during evaluation: PACU Patient participation: complete - patient participated Level of consciousness: fully awake Pain score: 3 Pain management: adequate Airway patency: adequate Evidence of recall: no Anesthetic complications: no Cardiovascular status: hemodynamically stable and blood pressure returned to baseline Respiratory status: acceptable and nasal cannula Hydration status: acceptable Pt is: normothermic Nausea/Vomiting status: none Comments: Stable and comfortable. Can go to the floor. BP 126/88 Pulse 85 Temp 36.3 ??C (97.3 ??F) (Temporal) Resp 15 SpO2 95% * Anesthesia Procedure Notes - Sandra Modi CRNA - 04/14/2020 10:32 AM CDT Associated Order(s): Airway Airway Patient location: OR Urgency: elective Indications for airway management: anesthesia Difficult airway: no Emergent airway documentation: Risks and benefits discussed: yes Consent obtained: yes Consent given by: patient Airway prep: Preoxygenated: yes Patient position: sniffing MILS maintained throughout: yes Mask difficulty assessment: 1 - vent by mask Spontaneous ventilation during airway: absent Sedation level during airway: GA Final airway details: Final airway type: endotracheal airway Tube type: ETT ETT size: 8.0 mm Cuffed: yes Technique used for successful ETT placement: video laryngoscopy Insertion site: oral Blade type: Juliana Video blade type: Rai Blade size: 3 Cormack-Lehane (direct): grade I - full view of glottis Cormack-Lehane (video): grade I - full view of glottis Cuff volume: 6 mL Cuff inflated with: air ETT to teeth: 23 cm Placement verified by: auscultation and CO2 detection Airway secured with: silk tape Number of attempts: 1 * Anesthesia Preprocedure Evaluation - Luiza Robbins MD - 04/14/2020 8:09 AM CDT Images from the original note were not included. Anesthesia Evaluation Kristian Vasques is a 49 y.o. male Procedure(s): PERCUTANEOUS [...] (LOVENOX) syringe 40 mg, 40 mg, subcutaneous, Daily-2099, 40 mg at 04/12/201945 ??? [MAR Hold] ketorolac (TORADOL) 15 mg/mL injection 15 mg, 15 mg, intravenous, Q6H SREEDHAR, 15 mg at 04/13/20 1500 ??? Lactated Ringer's (LR) infusion, 30 mL/hr, intravenous, Continuous ??? [MAR Hold] ondansetron ODT (ZOFRAN-ODT) disintegrating tablet 4 mg, 4 mg, oral, Q6H PRN OR [OCT Hold] ondansetron (ZOFRAN) injection 4 mg, 4 mg, intravenous, Q6H PRN ??? [MAR Hold] oxyCODONE (ROXICODONE) tablet 5 mg, 5 mg, oral, Q4H PRN, 5 mg at 04/14/20 0430 ??? [OCT Hold] ramelteon (ROZEREM) tablet 8 mg, 8 mg, oral, Nightly, 8 mg at 04/13/20 2137 ??? [OCT Hold] sodium chloride 0.9% flush 0.5-20 mL, [...] Medication protocol when under care of a COMB SETTER Planned anesthesia: General Induction: Induction: intravenous. Postoperative Plan: Postoperative administration opioids intended. No postoperative mechanical ventilation intended. Patient's planned disposition post procedure is 23 hour admit. Informed Consent: Discussed plan with COMB SETTER. Anesthesia plan and risks discussed with patient. [...] Name Priority Date/Time Associated Diagnosis Comments FL AN PROCEDURE PLACEHOLDER Routine 04/14/2020 10:32 AM CDT FL AN ELECTIVE ENDOTRACHEAL AIRWAY Routine 04/14/2020 10:32 AM CDT documented in this encounter Results * FL AN ELECTIVE ENDOTRACHEAL AIRWAY, FL AN PROCEDURE PLACEHOLDER (04/14/2020 10:32 AM CDT) Narrative Sandra Modi CRNA - 04/14/2020 10:32 AM CDT Sandra Modi CRNA ? 04/14/2020 10:33 AM Airway Patient location: OR Urgency: elective Indications for airway management: anesthesia Difficult airway: no Emergent airway documentation: Risks and benefits discussed: yes Consent obtained: yes Consent given by: patient Airway prep: Preoxygenated: yes Patient position: sniffing MILS maintained throughout: yes Mask difficulty assessment: 1 - vent by mask Spontaneous ventilation during airway: absent Sedation level during airway: GA Final airway details: Final airway type: endotracheal airway Tube type: ETT ETT size: 8.0 mm Cuffed: yes Technique used for successful ETT placement: video laryngoscopy Insertion site: oral Blade type: Juliana Video blade type: Rai Blade size: 3 Cormack-Lehane (direct): grade I - full view of glottis Cormack-Lehane (video): grade I - full view of glottis Cuff volume: 6 mL Cuff inflated with: air ETT to teeth: 23 cm Placement verified by: auscultation and CO2 detection Airway secured with: silk tape Number of attempts: 1 us Luiza Robbins MD ANESTHESIA ORDERABLES Final Result documented in this encounter Visit Diagnoses Not on filedocumented in this encounter Administered Medications Inactive Administered Medications - up to 3 most recent administrations Medication Order MAR Action Action Date Dose Rate Site ceFAZolin (ANCEF) 2,000 mg/20 mL in sterile water (premix) 2,000 mg 2,000 mg, intravenous, at 400 mL/hr, Administer over 3 Minutes, Once, On Millicent 04/14/20 at 0845, For 1 dose, Pre-Op, Administer within 60 minutes of incision., Indications: Prophylaxis, SurgicalIndications:Prophylaxis , Surgical Given 04/14/2020 10:28 AM CDT 2,000 mg esmoloL (BREVIBLOC) injection Administer over 1 Minutes, As needed, Starting on Millicent 04/14/20 at 1042, Anesthesia Intra-op Given 04/14/2020 10:42 AM CDT 30 mg fentaNYL (SUBLIMAZE) preservative free injection intravenous, As needed, Starting on Millicent 04/14/20 at 1014, Anesthesia Intra-op Given 04/14/2020 10:14 AM CDT 250 mcg glycopyrrolate (ROBINUL) injection intravenous, Administer over 1 Minutes, As needed, Starting on Millicent 04/14/20 at 1202, Anesthesia Intra-op Given 04/14/2020 12:02 PM CDT 0.6 mg Lactated Ringer's (LR) infusion 30 mL/hr, intravenous, Continuous, Starting on Millicent 04/14/20 at 0845, Pre-Op New Bag 04/14/2020 10:00 AM CDT New Bag 04/14/2020 8:30 AM CDT 30 mL/hr 30 mL/hr lidocaine PF (XYLOCAINE) 10 mg/mL (1 %) preservative free injection As needed, Starting on Millicent 04/14/20 at 1014, Anesthesia Intra-op Given 04/14/2020 10:14 AM CDT 100 mg midazolam (VERSED) preservative free injection intravenous, Administer over 2 Minutes, As needed, Starting on Millicent 04/14/20 at 1000, Anesthesia Intra-op Given 04/14/2020 10:00 AM CDT 2 mg neostigmine (PROSTIGMIN) injection intravenous, Administer over 3 Minutes, As needed, Starting on Millicent 04/14/20 at 1202, Anesthesia Intra-op Given 04/14/2020 12:02 PM CDT 3 mg ondansetron (ZOFRAN) injection 4 mg 4 mg, intravenous, Administer over 2 Minutes, Every 6 hours PRN, nausea, vomiting, if not tolerating PO, Starting on Sat04/12/20 at 1849, Indications: nausea and vomitingIndications:nausea and vomiting Given 04/14/2020 12:02 PM CDT 4 m g propofoL (DIPRIVAN) IV intravenous, As needed, Starting on Millicent 04/14/20 at 1014, Anesthesia Intra-op Given 04/14/2020 10:14 AM CDT 200 mg rocuronium (ZEMURON) injection intravenous, As needed, Starting on Millicent 04/14/20 at 1014, Anesthesia Intra-op Given 04/14/2020 10:14 AM CDT 60 mg documented in this encounter Care Teams Solar Systems Designer Relationship Specialty Start Date End Date Jayla Phoenix MD [address] [place] [address] PCP - General 08/07/17 documented as of this encounter
--- OUTSIDE RECORDS SUMMARY | 2024-08-23 08:07 | XMS_ITS | Encounter Summary ---
Author Organization [facility] Address [address] [place] [address] Phone Care Team Providers Care Engine Service Repairer Name Role Phone Jayla Phoenix MD Primary Care Provider [phone] Encounter Details Date Type Department Care Team (Latest Contact Info) Description 03/30/2020 2:00 PM CDT Office Visit [facility] Gastroenterology [address] [facility] [address] [place] [address] Corbin Duque MD [address] [place] [address] Transaminitis (Primary Dx); 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); High risk medications (not anticoagulants) long-term use; Crohn's disease of colon with fistula (CMS/HCC) Social History Tobacco Use Types Packs/Day Years Used Date Smoking Tobacco: Former Cigarettes 1.5 9 1 994 - 2003 Smokeless Tobacco: Never Alcohol Use Standard Drinks/Week Comments Not Currently 0 (1 standard drink = 0.6 oz pur e alcohol) Sex and Gender Information Value Date Recorded Sex Assigned at Not on file 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 Gender Identity Male 02/04/2019 10:52 AM CDT Sexual Orientation Straight 02/04/2019 10 :52 AM CDT documented as of this encounter Last Filed Vital Signs Vital Sign Reading Time Taken Comments Blood Pressure 140/93 03/30/2020 1:58 PM CDT Pulse 79 03/30/2020 1:58 PM CDT Temperature 36.5 ??C (97.7 ??F) 03/30/2020 1:58 PM CD T Respiratory Rate - - Oxygen Saturation - - Inhaled Oxygen Concentration - - Weight 100.6 kg (221 lb 11.2 oz) 03/30/2020 1:58 PM CDT Height 188 cm (6' 2 ) 03/30/2020 1:58 PM CDT Body Mass Index 28.46 03/30/2020 1:58 PM CDT documented in this encounter Progress Notes * Corbin Duque MD - 03/30/2020 2:00 PM CDT Images from the original note were not included. [facility] Corbin Duque MD, FACP, FACG, AGAF, JUSTEN cut off man Subjective NAME: Kristian Vasques : 1970 DATE: 03/30/2020 Referred here Primary Care Physician: Jayla Phoenix MD Consult requested by: Jayla Phoenix MD Chief Complaint: IC penetrating CD HPI Kristian Vasques, is a 49 y.o.male who presents for same. IC fistula with inflammation changes at the IC anastomosis. Never received real CD mgmt beyond pentasa. Bilatereal renal stones. Patient has elevated ALT 70 without notation of steatosis on MRE. No b12 noted but the Vit D low and being supplemented. 1 bm/day. No bleeding. Intermittant diarrhea. Appetite good. Wt up. No EIM's. Patient Active Problem List Diagnosis Date Noted ??? 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) 03/03/2020 Added automatically from request for surgery [id number] ??? Crohn's disease of both small and large intestine with other complication (CMS/HCC) 01/22/2020 Year of diagnosis: 2000. Year symptoms began: 2000. Phenotype: Penetrating (B3) without perianal disease. Distribution: ileocolonic (L3) without upper GI disease (L4). Extraintestinal manifestations: arthralgias. Complications: none. Prior treatments: pentasa. Current treatment: none. Prior surgeries: IC resection 2008. Endoscopies: last colonoscopy 2006. Imagin02/2021. 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 ?? 2. Suspected obstructing 1.2 cm left ureteral calculus at the ureteropelvic junction.0 [facility] HBV vaccination status: Non immune ??? Cervical disc herniation 02/02/2019 Added automatically from request for surgery [id number] ??? Cervical radiculopathy 02/02/2019 Added automatically from request for surgery [id number] ??? Fusion of spine of cervical region 02/02/2019 Added automatically from request for surgery [id number] ??? Cervical radiculopathy at C7 01/23/2019 ??? Cervical pain (neck) 09/03/2017 Past Medical History: Diagnosis Date ??? Gastric reflux ??? HTN (hypertension) Past Surgical History: Procedure Laterality Date ??? ANTERIOR CERVICAL DISCECTOMY W/ FUSION 2017 ??? BOWEL RESECTION 2008 Family History Problem Relation Age of Onset [...] ??? Smoking status: Former Smoker Packs/day: 1.50 Start date: 1993 Last attempt to quit: 2003 Years since quittin.6 ??? Smokeless tobacco: Never Used Substance and Sexual Activity ??? Alcohol use: Not Currently ??? Drug use: No ??? Sexual activity: Not on file Lifestyle ??? Physical activity Days per week: Not on file Minutes per session: Not on file ??? Stress: Not on file Relationships ??? Social connections Talks on phone: Not on file Gets together: Not on file Attends taoism service: Not on file Active member of [...] (two) times a day 1 Can 1 ??? cyanocobalamin, vitamin B-12, 5,000 mcg tablet, sublingual Place under the tongue ??? losartan-hydrochlorothiazide (HYZAAR) 100-25 mg per tablet ??? multivitamin capsule Take 1 capsule by mouth daily ??? ergocalciferol (VITAMIN D) 50,000 unit capsule Take 1 capsule (50,000 Units total) by mouth once a week (Patient not taking: Reported on 03/30/2020) 4 capsule 1 No current facility-administered medications for this visit. The new patient intake form was reviewed with the patient on @DATE@. Review of Systems: Constitutional: Negative. HENT: Negative for sore throat and trouble swallowing. Eyes: Negative. Respiratory: Negative. Cardiovascular: Negative. Gastrointestinal: See HPI Endocrine: Negative. Genitourinary: Negative. Musculoskeletal: Negative. Skin: Negative. Allergic/Immunologic: Negative. Neurological: Negative. Hematological: Negative. Psychiatric/Behavioral: Negative. Breast: Negative. Vital Signs: BP 140/93 Pulse 79 Temp 36.5 ??C (97.7 ??F) Ht 188 cm (6' 2 ) Wt 100.6 kg (221 lb 11.2 oz) BMI 28.46 kg/m?? Physical Exam: GENERAL: Well-appearing, in no [...] normal insight, memory, affect, and orientation Labs: Office Visit on 03/16/2020 Component Date Value [...] Lot Number 03/16/2020 0 Final Imaging Review MR as above ASSESSMENT and PLAN: Crohn's disease of both small and large intestine with other complication (CMS/HCC) Penetrating cd previously fibrostenosing with EC fistula who has never been on a biologic. He is taking questran for diarrhea. 2 past resections noted. He is due for colon and ? Chromo next week. At this point he needs a biologic rx. As such my preference would be mono therapy with Stelara. In thatposition stelara has a 55% response rate. The alternative would be humira with 6MP but would be nice to avoid the lymphoma risk and the increased risk in a covid situation. Will get liver panel as hehas had increased lft's in the past. He should have steatosis but not seen or called on his MRE. Will recheck. B12 had been checked and low and he is on sub l b12 so will recheck. He is having his colon on Saturday next week. No follow-ups on file. Corbin Duque MD, FACP, FACG, AGAJUSTEN Guy cut off man [facility] Division [facility] [address] [place] [address] Academic office [phone] documented in this encounter Miscellaneous Notes * Assessment & Plan Note - Corbin Duque MD - 03/30/2020 2:43 PM CDT Associated Problem(s): Crohn's disease of both small and large intestine with other complication (HCC) Penetrating cd previously fibrostenosing with EC fistula who has never been on a biologic. He is taking questran for diarrhea. 2 past resections noted. He is due for colon and ? Chromo next week. At this point he needs a biologic rx. As such my preference would be mono therapy with Stelara. In thatposition stelara has a 55% response rate. The alternative would be humira with 6MP but would be nice to avoid the lymphoma risk and the increased risk in a covid situation. Will get liver panel as jailene had increased lft's in the past. He should have steatosis but not seen or called on his MRE. Will recheck. B12 had been checked and low and he is on sub l b12 so will recheck. He is having his colon on Saturday next week. documented in this encounter Plan of Treatment Scheduled Orders Name Type Priority Associated Diagnoses Orde r Schedule Thiopurine methyltransferase (TPMT) genetics Lab Routine 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) Expected: 03/30/2020, Expires: 03/30/2021 documented as of this encounter Visit Diagnoses Diagnosis Transaminitis- Primary Nonspecific elevation of levels of transaminase or lactic acid dehydrogenase (LDH) 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) High risk medications (not anticoagulants) long-term use Encounter for long-term (current) use of other medications Crohn's disease of colon with fistula (CMS/HCC) (HCC) documented in this encounter Care Teams Engine Service Repairer Relationship Specialty Start Date End Date Jayla Phoenix MD [address] [place] [address] PCP - General 08/07/17 documented as of this encounter
--- OUTSIDE RECORDS SUMMARY | 2024-08-23 08:07 | XMS_ITS | Encounter Summary ---
Author Organization [facility] Address [address] [place] [address] Phone Care Team Providers Care Morning Babysitter Name Role Phone Jayla Phoenix MD Primary Care Provider [phone] Encounter Details Date Type Department Care Team (Late st Contact Info) Description 04/05/2020 Telephone [facility] Gastroenterology [address] [facility] [address]th [place] [address] [place] [address] Corbin Duque MD [address] [place] [address] Social History Tobacco Use Types Packs/Day Years Used Date Smoking Tobacco: Former Cigarettes 1.5 9 1 994 - 2003 Smokeless Tobacco: Never Alcohol Use Standard Drinks/Week Comments Not Currently 0 (1 standard drink = 0.6 oz pur e alcohol) Sex and Gender Information Value Date Recorded Sex Assigned at Not on file 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 Asking for alternative or what to do since denied. Guessing they are an infusion center that does their own auth. [phone] Thanks, Melany Reyes Spoke to [place] about the above and she said the J code 3358 for stelara IV is a plan exclusion. I called [facility] myself with ref # [id number] at number [phone] and they said this a plan exclusion but they will approve it if it is ordered through [facility] then given at [facility] or a facility/Home Health which allows this. [place] made aware and will speak with the PRODUCTION SOUND MIXER at [facility] to see if they can do this. I have a message out to Kristian updating him on the situation and that Ill call him once we find out if we need to find another place to infuse him, [facility], etc documented in this encounter Plan of Treatment Not on file documented as of this encounter Visit Diagnoses Not on filedocumented in this encounter Care Teams Morning Babysitter Relationship Specialty Start Date End Date Jayla Phoenix MD [address] [place], [place] [id number] PCP - General 08/07/17 documented as of this encounter
--- OUTSIDE RECORDS SUMMARY | 2024-08-23 08:07 | XMS_ITS | Encounter Summary ---
Author Organization [facility] Healthcare Address [address] [place] [address] Care Team Providers Care Chemical Plant Operator Name Role Phone Jayla [place] MD Primary Care Provider [phone] Encounter Details Date Type Department Care Team ([facility] st Contact Info) Description 03/31/2020 Orders Only [facility] HealthCare/ Physicians [address] [place], [place] [id number] Corbin Duque MD [address] [place], [place] [id number] Social History Tobacco Use Types Packs/Day Years Used Date Smoking Tobacco: Former Cigarettes 1.5 9 1 994 - 2003 Smokeless Tobacco: Never Alcohol Use Standard Drinks/Week Comments Not Currently 0 (1 standard drink = 0.6 oz pur e alcohol) Sex and Gender Information Value Date Recorded Sex Assigned at Not on file 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
--- OUTSIDE RECORDS SUMMARY | 2024-08-23 08:07 | XMS_ITS | Encounter Summary ---
Author Organization [facility] Address [address] [place] [address] Phone Care Team Providers Care Blower And Compressor Assembler Name Role Phone Jayla [place] MD Primary Care Provider [phone] Encounter Details Date Type Department Care Team (Late st Contact Info) Description 04/07/2020 Orders Only [facility] Gastroenterology [address] [facility] Advanced Medicine 8th [place] [address] [place] [id number] Corbin Duque MD [address] [place] [address] Social History Tobacco Use Types Packs/Day Years Used Date Smoking Tobacco: Former Cigarettes 1.5 9 1 994 - 2002 Smokeless Tobacco: Never Alcohol Use Standard Drinks/Week Comments Not Currently 0 (1 standard drink = 0.6 oz pur e alcohol) Sex and Gender Information Value Date Recorded Sex Assigned at Not on file Legal Sex Male 7:18 PM POST GRADUATE INTERNSHIP Gender Identity Male 02/04/2019 10:52 AM CDT Sexual Orientation Straight 02/04/2019 10 :52 AM CDT documented as of this encounter Ordered Prescriptions Prescription Sig Dispense Quantity Refills Last Filled Start Date End Date ustekinumab (STELARA) 130 mg/26 mL solutionIndication s:Crohn's Disease Infuse 104 mL (520 mg total) into a venous catheter once for 1 dose 104 mL 04/07/2020 0 ustekinumab (STELARA) 130 mg/26 mL solutionIndication s:Crohn's Disease Infuse 104 mL (520 mg total) into a venous catheter once for 1 dose 104 mL 04/07/2020 0 documented in this encounter Plan of Treatment Not on file documented as of this encounter Visit Diagnoses Not on filedocumented in this encounter Discontinued Medications Medication Sig Discontinue Reason Start Date End Da te ustekinumab (STELARA) 130 mg/26 mL solutionIndications:Carton Wrapper hn's Disease Infuse 104 mL (520 mg total) into a venous catheter once for 1 dose Reorder 04/07/2020 04/07/2020 documented as of this encounter Care Teams Blower And Compressor Assembler Relationship Specialty Start Date End Date Jayla [place] MD [address] [place] [address] PCP - General 08/07/17 documented as of this encounter
--- OUTSIDE RECORDS SUMMARY | 2024-08-23 08:07 | XMS_ITS | Encounter Summary ---
Author Organization [facility] Address [address] [place] [address] Phone Care Team Providers Care Upper Cutter Name Role Phone Jayla [place] MD Primary Care Provider [phone] Encounter Details Date Type Department Care Team (Late st Contact Info) Description 04/13/2020 Telephone [facility] Urology [address] [facility] [address] [place] [address] Hipolito Reyes MD [address] [place] [address] Social History Tobacco Use Types Packs/Day Years Used Date Smoking Tobacco: Former Cigarettes 1.5 9 1 994 - 2003 Smokeless Tobacco: Never Alcohol Use Standard Drinks/Week Comments Not Currently 0 (1 standard drink = 0.6 oz pur e alcohol) Sex and Gender Information Value Date Recorded Sex Assigned at Not on file Legal Sex Male 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 He is feeling fairly well after surgery yesterday. I see 2 areas of stone still in the left kidney. We will plan for secondary left PCNL tomorrow. Will keep his left nephrostomy tubes in place, but his pichardo can come out today. Kristian is amenable to this plan. documented in this encounter Plan of Treatment Not on file documented as of this encounter Visit Diagnoses Not on filedocumented in this encounter Care Teams Upper Cutter Relationship Specialty Start Date End Date Jayla [place] MD [address] [place], [place] [id number] PCP - General 08/07/17 documented as of this encounter
--- OUTSIDE RECORDS SUMMARY | 2024-08-23 08:07 | XMS_ITS | Encounter Summary ---
Author Organization [facility] Address [address] [place] [address] Phone Care Team Providers Care Restaurant General Manager Name Role Phone Jayla [place] MD Primary Care Provider [phone] Encounter Details Date Type Department Care Team (Late st Contact Info) Description 04/07/2020 Telephone [facility] Gastroenterology [address] [facility] Advanced Medicine 8th [place] [address] [place] [address] Corbin Duque MD [address] [place] [address] Social History Tobacco Use Types Packs/Day Years Used Date Smoking Tobacco: Former Cigarettes 1.5 9 1 994 - 2003 Smokeless Tobacco: Never Alcohol Use Standard Drinks/Week Comments Not Currently 0 (1 standard drink = 0.6 oz pur e alcohol) Sex and Gender Information Value Date Recorded Sex Assigned at Not on file Legal Sex Male 7:18 PM PATTERNMAKER PLASTER Gender Identity Male 02/04/2019 10:52 AM CDT Sexual Orientation Straight 02/04/2019 10 :52 AM CDT documented as of this encounter Miscellaneous Notes * Telephone Encounter - Michelle Hazel RN - 04/07/2020 1:11 PM CDT I spoke with [place] and Jackie at [facility] and they said he could be infused with stelara there but the medication needs to be sent directly to [facility] from [facility]. Ordered to [employer] with directions to deliver there, will also update Kristian to be expecting a call from [facility] documented in this encounter Plan of Treatment Not on file documented as of this encounter Visit Diagnoses Not on filedocumented in this encounter Care Teams Restaurant General Manager Relationship Specialty Start Date End Date Jayla [place] MD [address] [place] [address] PCP - General 08/07/17 documented as of this encounter
--- OUTSIDE RECORDS SUMMARY | 2024-08-23 08:07 | XMS_ITS | Encounter Summary ---
Author Organization [facility] Healthcare Address [address] [place] [address] Care Team Providers Care Sba Business Development Officer Name Role Phone Jayla [place] MD Primary Care Provider [phone] Encounter Details Date Type Department Care Team ([facility] st Contact Info) Description 04/09/2020 Orders Only [facility] HealthCare/ Physicians [address] [place] [address] AltusHipolito nunn MD [address] [place] [address] Pre-op testing (Primary Dx) Social History Tobacco Use Types Packs/Day Years Used Date Smoking Tobacco: Former Cigarettes 1.5 9 1 994 - 2002 Smokeless Tobacco: Never Alcohol Use Standard Drinks/Week Comments Not Currently 0 (1 standard drink = 0.6 oz pur e alcohol) Sex and Gender Information Value Date Recorded Sex Assigned at Not on file Legal Sex Male 7:18 PM SERVICENOW ADMINISTRATOR DEVELOPER Gender Identity Male 02/04/2019 10:52 AM CDT Sexual Orientation Straight 02/04/2019 10 :52 AM CDT documented as of this encounter Progress Notes * Margie Borges MA - 04/09/2020 11:41 AM CDT Patient qualifies for COVID-19 testing. Order sent to following location: [facility] documented in this encounter Plan of Treatment Not on file documented as of this encounter Visit Diagnoses Diagnosis Pre-op testing- Primary Unspecified pre-operative examination documented in this encounter Care Teams Sba Business Development Officer Relationship Specialty Start Date End Date Jayla [place] MD [address] [place] [address] PCP - General 08/07/17 documented as of this encounter
--- OUTSIDE RECORDS SUMMARY | 2024-08-23 08:07 | XMS_ITS | Encounter Summary ---
Author Organization [facility] Address [address] [place] [address] Phone Care Team Providers Care Supervisor Byproducts Name Role Phone Jayla [place] MD Primary Care Provider [phone] Encounter Details Date Type Department Care Team (Late st Contact Info) Description 04/05/2020 Orders Only [facility] Urology [address] [facility] Medical Office [address] [place] [address] Hipolito Reyes MD [address] [place] [address] Nephrolithiasis (Primary Dx); Hydronephrosis, unspecified hydronephrosis type Social History Tobacco Use Types Packs/Day Years Used Date Smoking Tobacco: Former Cigarettes 1.5 9 1 994 - 2003 Smokeless Tobacco: Never Alcohol Use Standard Drinks/Week Comments Not Currently 0 (1 standard drink = 0.6 oz pur e alcohol) Sex and Gender Information Value Date Recorded Sex Assigned at Not on file Legal Sex Male 7:18 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 Gender Identity Male 02/04/2019 10:52 AM CDT Sexual Orientation Straight 02/04/2019 10 :52 AM CDT documented as of this encounter Miscellaneous Notes * Addendum Note - Alyse Trinh, CRACKER AND COOKIE MACHINE OPERATOR - 04/05/2020 3:21 PM CDTAddended by: ALYSE TRINH on: 04/08/2020 08:11 AM Modules accepted: Orders documented in this encounter Plan of Treatment Not on file documented as of this encounter Results * Urine culture Urine, clean voided (04/08/2020 8:49 AM CDT) Report Final Report: Less than 100,000 colonies/mL (clinically insignificant growth based on current clinical standards) [facility] Organism (CLINICALLY INSIGNIFICANT GROWTH [facility] Urine, clean voided 04/08/2020 8:49 AM CDT 04/08/2020 9:26 AM CDT Narrative [facility] - 04/09/2020 12:56 PM CDT Testing performed by [facility] Microbiology Laboratory ([phone]) Hipolito Reyes MD LAB MICROBIOLOGY - GENERAL ORDERABLES Final Result [facility] Department [place] [address] documented in this encounter Visit Diagnoses Diagnosis Nephrolithiasis- Primary Calculus of kidney Hydronephrosis, unspecified hydronephrosis type documented in this encounter Care Teams Supervisor Byproducts Relationship Specialty Start Date End Date Jayla [place] MD [address] [place] [address] PCP - General 08/07/17 documented as of this encounter
--- OUTSIDE RECORDS SUMMARY | 2024-08-23 08:07 | XMS_ITS | Encounter Summary ---
Author Organization [facility] Healthcare Address [address] [place] [address] Care Team Providers Care Merchandise Complaint Adjuster Name Role Phone Jayla Phoenix MD Primary Care Provider [phone] Encounter Details Date Type Department Care Team ([facility] st Contact Info) Description 04/04/2020 11:00 AM CDT - 04/04/2020 11:45 AM CDT Surgery [facility] Endoscopy [address] [place] [address] Corbin Duque MD [address] [facility] [address] [place] [address] COLON BIOPSY Surgery Details Date/Time Status Location OR Service Patient Class Case Class Case Type Trauma Case? 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 Gender Identity Male 02/04/2019 10:52 AM CDT Sexual Orientation Straight 02/04/2019 10 :52 AM CDT documented as of this encounter Last Filed Vital Signs Vital Sign Reading Time Taken Comments Blood Pressure 122/85 04/04/2020 11:45 AM CDT Pulse 63 04/04/2020 11:45 AM CDT Temperature 36.6 ??C (97.9 ??F) 04/04/2020 11:25 AM C DT Respiratory Rate 24 04/04/2020 11:45 AM CDT Oxygen Saturation 98% 04/04/2020 11:45 AM CDT Inhaled Oxygen Concentration - - Weight 99.8 kg (220 lb) 04/04/2020 9:55 AM CDT Height 188 cm (6' 2 ) 04/04/2020 9:55 AM CDT Body Mass Index 28.25 04/04/2020 9:55 AM CDT documented in this encounter Medications at Time of Discharge cyanocobalamin, vitamin B-12, 5,000 mcg tablet, sublingualIndica tions:Prevention of Vitamin B12 Deficiency Place 1 tablet under the tongue junior account manager before breakfast losartan-hydroch lorothiazide (HYZAAR) 100-25 mg per tabletIndication s:hypertension Take 1 tablet by mouth nightly 02/23/2019 multivitamin capsuleIndicatio ns:Vitamin Deficiency Prevention Take 1 capsule by mouth junior account manager before breakfast cholestyramine-a spartame 4 gram powderIndication s:for bowel resection Take 1 Scoop by mouth 2 (two) times a day 1 Can 1 03/10/2020 0 ergocalciferol (VITAMIN D) 50,000 unit capsule Take 1 capsule (50,000 Units total) by mouth once a week 4 capsule 1 03/22/2020 0 documented as of this encounter Discharge Disposition Disposition Code Departure Means Destination Discharge to home or self care documented in this encounter H&P Notes * Corbin Duque MD - 04/04/2020 10:54 AM CDT Pre Endoscopy History and Physical Zoey Joseph is a 49 y.o. male who is here for Procedure(s): COLONOSCOPY The indication(s) for the procedure(s): Crohn's disease. Past Medical History: Diagnosis Date ??? Crohn's disease (CMS/HCC) 2000 ??? DDD (degenerative disc disease), cervical ??? Gastric reflux ??? HTN (hypertension) Past Surgical History: Procedure Laterality Date ??? ANTERIOR CERVICAL DISCECTOMY W/ FUSION 2018 hardware removal 2018 ??? BOWEL RESECTION 2009 ??? KIDNEY STONE SURGERY Social History Tobacco Use ??? Smoking status: Former Smoker Packs/day: 1.50 Start date: 1993 Quit date: 2002 Years since quittin.6 ??? Smokeless tobacco: Never Used Substance Use Topics ??? Alcohol use: Not Currently Family History Problem Relation Age of Onset ??? Heart attack Father ??? Anesthesia problems Neg Hx Iodinated contrast media Prior to Admission medications Medication Sig Start Date End Date Taking? Authorizing Provider cyanocobalamin, vitamin B-12, 5,000 mcg tablet, sublingual Place under the tongue Yes Historical Provider, losartan-hydrochlorothiazide (HYZAAR) 100-25 mg per tablet 02/23/19 Yes Historical Provider, cholestyramine-aspartame 4 gram powder Take 1 Scoop by mouth 2 (two) times a day 03/10/20 Corbin Andrew MD ergocalciferol (VITAMIN D) 50,000 unit capsule Take 1 capsule (50,000 Units total) by mouth once a week Patient not taking: Reported on 03/30/2020 03/22/20 03/22/21 Corbin Duque MD multivitamin capsule Take 1 capsule by mouth daily Historical Provider, Review of Systems A pertinent, focused review of systems was completed and negative, except as noted above. OBJECTIVE: Vitals: Vitals: 04/04/20 0955 04/04/20 1005 BP: 129/93 Pulse: 73 Resp: 11 Temp: 36.3 ??C (97.3 ??F) TempSrc: Temporal SpO2: 98% Weight: 99.8 kg (220 lb) Height: 188 cm (6' 2 ) [...] Procedure Notes * Corbin Duque MD - 04/04/2020 10:44 AM CDTAssociated Order(s): COLONOSCOPY ENDOSCOPY LAB Patient Name: Zoey Joseph Procedure Date: 04/04/2020 10:44 AM Date of : 1970 Admit Type: Outpatient Age: 49 Gender: Male Attending MD: Corbin Duque M.D. Room: [facility] ENDOSCOPY ROOM 02 Note Status: Finalized Procedure: Colonoscopy Indications: Follow-up of Crohn's disease of the small bowel and colon Providers: Corbin Duque M.D. Referring MD: Jayla Phoenix MD Medicines: Monitored [...] scope was passed under direct vision. The [id number] was introduced through the anus and through the end to side anastamosis at the region of the hepatic flexure and advanced to 10 cm into the ileum. The colonoscopy was performed without difficulty. The patient tolerated the procedure well. The quality of the bowel preparation was good. Bowel prep was administered using a split dose. Findings: The terminal ileum contained a few four mm ulcers. No bleeding was present. Biopsies were taken with a cold forceps for histology. Verification of patient identification for the specimen was done. Estimated blood loss was minimal. The Simple Endoscopic Score for Crohn's Disease [...] surfaces and no narrowings. Segment score: 0. Segment score: 0. - Total SES-CD aggregate score: 3. Biopsies were taken with a cold forceps for histology. Bx's Eliud ti, tx, sigmoid and rectum. Verification of patient identification for the specimen was done. Estimated blood loss was minimal. Non-bleeding internal hemorrhoids were found during retroflexion. The hemorrhoids were small. Impression: - A few ulcers in the terminal ileum. Biopsied. - Simple Endoscopic Score for Crohn's Disease: 3, mucosal inflammatory changes secondary to Crohn's disease with ileitis. Biopsied. Recommendation: - Discharge patient to home. - Resume previous diet. - Continue present medications. - Await pathology results. - Repeat colonoscopy in 2 years for surveillance. - Return to GI office in 2 weeks. Attending Participation: I personally performed the entire procedure. Electronically signed by Corbin Duque MD Corbin Duque M.D. 04/04/2020 11:29:16 AM Number of Addenda: 0 Note Initiated On: 04/04/2020 10:44 AM documented in this encounter Miscellaneous Notes * Result Encounter Note - Corbin Duque MD - 04/04/2020 11:57 AM CDT Colon histology negative. Acitve small bowel diease noted although. Proceed with Stelara rx. * Perioperative Nursing Note - Demetrice Moreno RN - 04/04/2020 11:[address] Duque discussed findings. Discharge instructions given to patient, (and spouse by phone).Understanding expressed, questions answered.(No signatures due to CoVid19 protocol). directed to hot die picker point. Tolerating po fluids. * Pre-Procedure Instructions - Kely Catalan RN - 04/01/2020 11:42 AM CDT Please follow any instruction you have been give re:Bowel prep. Come to [facility] also known as ER entrance. There is a small [address] at the entrancewith free emblem drawer in parking or you may park in front of the building. As you enter, immediately to your right will be an information desk, let them know you are here fora procedure. You will be directed to the elevator in lobby. Once on elevator press button for procedure level or LL-That will take you down one level into the registration area. One registered you will have a seat and one of the endoscopy nurses will come to get you ready for your procedure. For your safety all staff are screened and will be wearing a mask. Dress comfortably, leave any valuables at home, specifically caal, jewelry. Please bring photo ID, any insurance cards. For your safety due to the anesthesia, you won't be able to drive. Please have a ride arranged to and from the hospital w/a responsible adult. This must be someone who knows you and can care for you-please no form of public transportation or medical transport by yourself will be allowed. According to [facility] guidelines for your safety and the safety of others you are allowed one person to accompany you, no one under the age of 16 will be allowed into the building. You and this person will be screened for COVID-19 exposure, symptoms, fever. You and this person are required to wear a mask at all times, if you do not have one, one will be provided for you. The person who accompanies you may wait in car if they so choose. They are allowed to wait for you in waiting room or cafe where seating is cleaned between use and chairs are spaced for distancing. Thank you in advance for your patience and understanding documented in this encounter Plan of Treatment Not on file documented as of this encounter Procedures Procedure Name Priority Date/Time Associated Diagnosis Comments SURGICAL PATHOLOGY Routine 04/04/2020 11 :10 AM CDT 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) COLON BIOPSY 04/04/2020 10:52 AM CDT 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) COLONOSCOPY 04/04/2020 10:44 AM CDT documented in this encounter Results * Surgical pathology (04/04/2020 11:10 AM CDT) Tissue (Ileum, Biopsy) 04/04/2020 11:10 AM CDT Tissue (Ileum, Biopsy) 04/04/2020 11:15 AM CDT Tissue (Ileum, Biopsy) 04/04/2020 11:15 AM CDT Tissue (Ileum, Biopsy) 04/04/2020 11:15 AM CDT Narrative PATHOLOGY [facility] - 04/05/2020 10:33 AM CDT EPIC results best viewed via link to PDF [facility] [place] [address] SURGICAL PATHOLOGY REPORT FINAL Patient Name: ?? ZOEY JOSEHPJohann Gender: ??M : ??1970 (Age: 49) Address: ??[address] [place] [id number] Hospital #: ??[id number] Taken:04/04/2020 Received:04/04/2020 Reported: 04/05/2020 Patient Type: WC SDS Client ?[facility] Service: Gastro Location: [facility] Physician(s): ??MD Jayla Ambrocio M.D. Diagnosis: A. ??Small intestine, eliud terminal ileum, biopsy ? - Small intestinal mucosa with acute ileitis ?? B. ??Large intestine, transverse, biopsy ? - Normal colonic mucosa ? C. ??Large intestine, sigmoid, biopsy ? - Normal colonic mucosa ? D. ??Large intestine, rectum, biopsy ? - Normal colonic mucosa ? kxb/04/05/2020 10:32 By this signature, I attest that the above diagnosis is based upon my personal examination of the slides(and/or other material indicated in the diagnosis). Christal Lilly MD Report Electronically Reviewed and Signed Out By ??Christal Lilly MD 04/05/2020 10:33:05 Microscopic Description and Comment: The history of Crohn's disease is noted. Negative for dysplasia, granulomata, and viral cytopathic effect. Microscopic examination substantiates the above cited diagnosis. Microscopic slide review and interpretation for this case was performed at [facility], Department of Surgical Pathology, [address] [facility] [id number], ??[place], [place] ??[address] ?? CLIA # [id number] Clari La M.D., PhD History: The patient is a 49-year-old man with 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. ??Operative procedure: Colonoscopy. Specimen(s) Received: A: Eliud terminal ileum B: Transverse C: Sigmoid D: Rectum Gross Description: The specimen is received in four formalin filled containers each labeled with the patient's name. ??The first container is also labeled neoterminal ileum. ??It contains two irregular de leon-pink soft fragment measuring 1.0 x 0.4 x 0.1 cm in aggregate. Labeled A1. ??Jar 0. The second container is additionally labeled transverse. ??It holds a single irregular de leon-pink soft fragment measuring 0.6 x 0.4 x 0.1 cm. ??Labeled B1. ??Jar 0. The third container is additionally labeled sigmoid. ??It holds multiple irregular de leon pink soft tissue fragments measuring 0.8 x 0.5 x 0.1 cm in aggregate. ??Stained with hematoxylin. ??Labeled C1. ??Jar 0. The fourth container is additionally labeled rectum. ??It holds multiple irregular de leon pink soft fragments measuring 1.0 x 0.4 x 0.1 cm in aggregate. ??Labeled D1. ??Jar 0. cnewho/04/04/2020 14:22 PA(s): CAROLE Cantu, CT ([facility]) By this signature, I attest that the above diagnosis is based upon my personal examination of the slides(and/or other material). Addenda/Procedures The performance characteristics of some immunohistochemical stains, fluorescence in-situ hybridization tests and immunophenotyping by flow cytometry cited in this report (if any) were determined by the Surgical Pathology Department at [facility] as part of an ongoing water quality technician program and in compliance with [...] determined by the Surgical Pathology Department of [facility]. ??It has not been cleared or approved by the U. S. Food and Drug Administration. IMAGES AND SCANNED DOCUMENTS, IF INCLUDED, ONLY VIEWABLE IN PDF VERSION OF REPORT Corbin Duque MD LAB PATHOLOGY ORDERABLES nal Result PATHOLOGY [facility] [phone] * COLONOSCOPY (04/04/2020 10:44 AM CDT) Anatomical Region Laterality Modality Other Narrative Procedure Note Corbin Duque MD - 04/04/2020 10:44 AM CDT ENDOSCOPY LAB Patient Name: Zoey Joseph Procedure Date: 04/04/2020 10:44 AM Date of : 1970 Admit Type: Outpatient Age: 49 Gender: Male Attending MD: Corbin Duque M.D. Room: [facility] ENDOSCOPY ROOM 02 Note Status: Finalized Procedure: Colonoscopy Indications: Follow-up of Crohn's disease of the small bowel andcolon Providers: Corbin Duque M.D. Referring MD: Jayla Phoenix MD Medicines: Monitored Anesthesia Care Complications: No immediate complications. Estimated Blood Loss: Estimated blood loss was minimal. Procedure: Pre-Anesthesia Assessment: - Prior to the procedure, a History and Physical was performed, and patient medications and allergies were reviewed. The patient is competent. The risks andbenefits of the procedure and the sedation options and riskswere discussed with the patient. All questions were answered and informed consent was obtained. Patientidentification and proposed procedure were verified by the physicianin the pre-procedure area. Mental Status Examination:alert and oriented. Airway Examination: normal oropharyngeal airway and neck mobility. Respiratory Examination:clear to auscultation. CV Examination: normal. Prophylactic Antibiotics: The patient does not require prophylactic antibiotics. Prior Anticoagulants: The patient hastaken no previous anticoagulant or antiplatelet agents. ASA Grade Assessment: II - A patient with mild systemic disease. After reviewing the risks and benefits, the patient was deemed in satisfactory condition to undergo the procedure. The anesthesia plan was to use monitored anesthesia care (MAC). Immediately prior toadministration of medications, the patient was re-assessed foradequacy to receive sedatives. The heart rate, respiratory rate, oxygen saturations, blood pressure, adequacy ofpulmonary ventilation, and response to care were monitored throughout the procedure. The physical status of the patient was re-assessed after the procedure. The benefits, risks and alternatives of the procedureand sedation were discussed and informed consent wasobtained. All questions were answered. Please refer to the signed informed consent document in the medical record. Thescope was passed under direct vision. The [id number] introduced through the anus and through the end to side anastamosis at the region of the hepatic flexure and advanced to 10 cm into the ileum. The colonoscopy was performed without difficulty. The patient tolerated the procedure well. The quality of the bowel preparationwas good. Bowel prep was administered using a split dose. Findings: The terminal ileum contained a few four mm ulcers. No bleeding was present. Biopsies were taken with a cold forceps for histology. Verification of patient identification for the specimen was done. Estimated blood loss was minimal. The Simple Endoscopic Score for Crohn's Disease [...] surfaces and no narrowings. Segment score: 0. Segmentscore: 0. - Total SES-CD aggregate score: 3. Biopsies were taken with a cold forceps for histology. Bx's Eliud ti, tx, sigmoid and rectum.Verification of patient identification for the specimen was done. Estimated blood loss was minimal. Non-bleeding internal hemorrhoids were found during retroflexion. The hemorrhoids were small. Impression: - A few ulcers in the terminal ileum. Biopsied. - Simple Endoscopic Score for Crohn's Disease: 3,mucosal inflammatory changes secondary to Crohn's disease with ileitis. Biopsied. Recommendation: - Discharge patient to home. - Resume previous diet. - Continue present medications. - Await pathology results. - Repeat colonoscopy in 2 years for surveillance. - Return to GI office in 2 weeks. Attending Participation: I personally performed the entire procedure. Electronically signed by Corbin Duque MD Corbin Duque M.D. 04/04/2020 11:29:16 AM Number of Addenda: 0 Note Initiated On: 04/04/2020 10:44 AM Corbin Duque MD ENDOSCOPY PROCEDURES Final [...] Every 8 hours scheduled, First dose on Sat04/04/20 at 1400, Pre-Procedure (GI), Flush volume based on line type and size. sodium chloride 0.9% flush 0.5-20 mL 0.5-20 mL, intra-catheter, As needed, line care, Starting on Sat04/04/20 at 0949, Pre-Procedure (GI), Flush volume based on line type and size. Flush before and after each use. sodium chloride 0.9% infusion 30 mL/hr, intravenous, Continuous, Starting on Sat04/04/20 at 1030, Pre-Procedure (GI) New Bag 04/04/2020 10:12 AM CDT 30 mL/hr 30 mL/hr documented in this encounter Active and Recently Administered Medications Times are shown in CDT. Scheduled Medication Order 04/02/2020 04/03/2020 04/04/2020 sodium chloride 0.9% flush 0.5-20 mL 0.5-20 mL, intra-catheter, Every 8 hours scheduled, First dose on Sat04/04/20 at 1400, Pre-Procedure (GI), Flush volume based on line type and size. 0958 (OCT Hold - Pro vider: Automatic Transfer Provider - Reason: Patient not available)1557 (OCT Unhold - Provider: Automatic Discharge Provider) Continuous Medication Order 04/02/2020 04/03/2020 04/04/2020 sodium chloride 0.9% infusion 30 mL/hr, intravenous, Continuous, Starting on Sat04/04/20 at 1030, Pre-Procedure (GI) 1012 (New Bag - Prov ider: Carolina Tena, RN)1120 (Anesthesia Volume Adjustment - Provider: Joyce Uribe CRNA)1146 (Stopped - Provider: Demetrice Moreno RN) PRN Medication Order 04/02/2020 04/03/2020 04/04/2020 ondansetron (ZOFRAN) injection 4 mg 4 mg, intravenous, Administer over 2 Minutes, Every 30 min PRN, nausea, vomiting, Starting on Sat04/04/20 at 1131, For 2 doses, Recovery (GI), Indications: Nausea and Vomiting sodium chloride 0.9% flush 0.5-20 mL 0.5-20 mL, intra-catheter, As needed, line care, Starting on Sat04/04/20 at 0949, Pre-Procedure (GI), Flush volume based on line type and size. Flush before and after each use. 0958 (OCT Hold - Pro vider: Automatic Transfer Provider - Reason: Patient not available)1557 (OCT Unhold - Provider: Automatic Discharge Provider) documented in this encounter Orders Medications Ordered That Buck ht Not Have Been Administered Count Last Ordered Date First Ordered Date ondansetron (ZOFRAN) injection 4 mg 1 04/04 sodium chloride 0.9% flush 0.5-20 mL 2 03/19 documented in this encounter Care Teams Merchandise Complaint Adjuster Relationship Specialty Start Date End Date Jayla Phoenix MD [address] [place] [address] PCP - General 08/07/17 documented as of this encounter
--- OUTSIDE RECORDS SUMMARY | 2024-08-23 08:07 | XMS_ITS | Encounter Summary ---
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 Gender Identity Male 02/04/2019 10:52 AM [...] 9:55 AM CDT documented in this encounter Discharge Diagnoses Diagnosis Noninfective gastroenteritis and colitis, unspecified - NONINFECTIVE GASTROENTERITIS AND COLITIS, UNSPECIFIED Essential (primary) hypertension - ESSENTIAL (PRIMARY) HYPERTENSION Unspecified essential hypertension Gastro-esophageal reflux disease without esophagitis - GASTRO-ESOPHAGEAL REFLUX DISEASE WITHOUT ESOPHAGITIS 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 THERAPY Personal history of nicotine dependence - PERSONAL HISTORY OF NICOTINE DEPENDENCE Family history of ischemic heart disease and other diseases of the circulatory system - FAMILY HISTORY OF ISCHEMIC HEART DISEASE AND OTHER DISEASES OF THE CIRCULATORY SYSTEM documented in this encounter Medications at Time of Discharge cyanocobalamin, vitamin B-12, 5,000 mcg tablet, sublingualIndica tions:Prevention of Vitamin B12 Deficiency Place 1 tablet under the tongue cilnical scientist before breakfast losartan-hydroch lorothiazide (HYZAAR) 100-25 mg per tabletIndication s:hypertension Take 1 tablet by mouth nightly 02/23/2019 multivitamin capsuleIndicatio ns:Vitamin Deficiency Prevention Take 1 capsule by mouth cilnical scientist before breakfast cholestyramine-a spartame 4 gram powderIndication [...] Male Attending MD: Corbin Duque M.D. Room: [facility] ENDOSCOPY ROOM 02 Note Status: Finalized Procedure: [...] scope was passed under direct vision. The [id number] was introduced through the anus and through [...] signatures due to CoVid19 protocol). directed to product picker point. Tolerating po fluids. * Pre-Procedure Instructions - Kely Catalan RN - 04/01/2020 11:42 AM CDT Please follow any instruction you have been give re:Bowel prep. Come to [facility] also known as ER entrance. There is a small [address] at the entrancewith free leach runner parking or you may park in front of the building. As you enter, immediately to your right will be an information desk, let them know you are here fora procedure. You will be directed to the elevator in [facility]. Once on elevator press button for procedure [...] by yourself will be allowed. According to [facility] guidelines for your safety and the safety [...] Biopsy) 04/04/2020 11:15 AM CDT Narrative PATHOLOGY [facility] - 04/05/2020 10:33 AM CDT [facility] results best viewed via link to PDF [facility] [place] [address] SURGICAL PATHOLOGY REPORT FINAL Patient Name: ?? ZOEY JOSEPH Gender: ??M : ??1970 (Age: 49) Address: ??[address] [place] [id number] Hospital #: ??[id number] Taken:04/04/2020 Received:04/04/2020 Reported: 04/05/2020 Patient Type: WC SDS Client ?[facility] Service: Gastro Location: [facility] Physician(s): ??MD Jayla Ambrocio M.D. Diagnosis: A. [...] interpretation for this case was performed at [facility], Department of Surgical Pathology, [address] [facility] [place], [place] [id number], ??[place], [place] ??[address] ?? CLIA # [id number] Clari La M.D., PhD History: The patient [...] ??Labeled D1. ??Jar 0. cnewho/04/04/2020 14:22 PA(s): Louisa Doll, [place], [place] (ASCP) By this signature, I attest that the above diagnosis is based upon my personal examination of the slides(and/or other material). Addenda/Procedures The performance characteristics of some immunohistochemical stains, fluorescence in-situ hybridization tests and immunophenotyping by flow cytometry cited in this report (if any) were determined by the Surgical Pathology Department at [facility] as part of an ongoing coding quality analyst program and in compliance with federally mandated [...] determined by the Surgical Pathology Department of [facility]. ??It has not been cleared or approved by the [place]. [place]. Food and Drug Administration. IMAGES AND SCANNED DOCUMENTS, IF INCLUDED, ONLY VIEWABLE IN PDF VERSION OF REPORT Corbin Duque MD LAB PATHOLOGY ORDERABLES Fi nal Result PATHOLOGY [facility] [phone] * COLONOSCOPY (04/04/2020 10:44 AM CDT) Anatomical Region Laterality Modality Other Narrative Procedure Note Corbin Duque MD - 04/04/2020 10:44 AM CDT ENDOSCOPY LAB Patient Name: Zoey Joseph Procedure Date: 04/04/2020 10:44 AM Date of : 1970 Admit Type: Outpatient Age: 49 Gender: Male Attending MD: Corbin Duque M.D. Room: [facility] ENDOSCOPY ROOM 02 Note Status: Finalized Procedure: [...] Thescope was passed under direct vision. The [id number] introduced through the anus and through the [...] to 3 most recent administrations Medication Order [facility] Action Action Date Dose Rate Site sodium [...] volume based on line type and size. 0945 (OCT Hold - Pro vider: Automatic Transfer Provider - Reason: Patient not available)8427 (OCT Unhold - Provider: Automatic Discharge Provider) Continuous Medication Order 04/02/2020 04/03/2020 04/04/2020 sodium chloride 0.9% infusion 30 mL/hr, intravenous, Continuous, Starting on Sat04/04/20 at 1030, Pre-Procedure (GI) 1012 (New Bag - Prov ider: Carolina Tena, AMIE)1120 (Anesthesia Volume Adjustment - Provider: Joyce Uribe [...] 03/19 documented in this encounter Care Teams Lease Purchase Truck Driver Relationship Specialty Start Date End Date Jayla Phoenix MD [address] [place] [address] PCP - General 08/07/17 documented as of this encounter
--- OUTSIDE RECORDS SUMMARY | 2024-08-23 08:07 | XMS_ITS | Encounter Summary ---
Author Organization [facility] Healthcare Address [address] [place] [address] Care Team Providers Care Olive Packer Name Role Phone Jayla Phoenix MD Primary Care Provider Encounter Details Date Type Department Care Team (Late st Contact Info) Description 04/14/2020 9:30 AM CDT - 04/14/2020 12:10 PM CDT Surgery [facility] Operating Room [address] [place] [address] Hipolito Reyes MD [address] [place] [address] SECOND LOOK PERCUTANEOUS NEPHROLITHOTOMY Surgery Details Date/Time Status Location OR Service Patient Class Case Cl ass Case Type Trauma Case? 04/14/2020 9:30 AM Posted [facility] OR POD 1 324 Urology Outpatient Elective Panel 1 Procedure LRB Anes Op Region Wound Class Comments SECOND LOOK PERCUTANEOUS NEPHROLITHOTOMY Left General Flank Class II - Clean Contaminated Surgeon Surgeon Role Service Panel Rito Sloan MD Resident - Assisting Urolog y 1 Hipolito Reyes MD Primary Urology 1 Case Notes 04/05 Approved to schedule Per email from Dr. 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 Gender Identity Male 02/04/2019 10:52 AM CDT Sexual Orientation Straight 02/04/2019 10 :52 AM CDT documented as of this encounter Last Filed Vital Signs Vital Sign Reading Time Taken Comments Blood Pressure 134/92 04/14/2020 8:10 AM CDT Pulse 88 04/14/2020 8:20 AM CDT Temperature 36.8 ??C (98.2 ??F) 04/14/2020 8:08 AM CD T Respiratory Rate 22 04/14/2020 8:20 AM CDT Oxygen Saturation 95% 04/14/2020 8:20 AM CDT Inhaled Oxygen Concentration - - Weight 98.4 kg (217 lb) 04/12/2020 9:00 PM CDT Height 188 cm (6' 2 ) 04/12/2020 9:00 PM CDT Body Mass Index 27.86 04/12/2020 9:00 PM CDT documented in this encounter Discharge Summaries * Diane Degroot NP - 04/18/2020 9:08 AM CDT Inpatient Discharge Summary BRIEF OVERVIEW Admitting Provider: Hipolito Reyes MD Discharge Provider: Hipolito Reyes MD Primary Care Physician at Discharge: Jayla Phoenix MD [phone] Admission Date: 04/12/2020 Discharge Date: 04/18/2020 Admission Location: [facility] Problems/Diagnoses: Principal Problem: Bilateral nephrolithiasis Resolved Problems: [...] Discharge Disposition: Discharge to home or self FPC to self care Code Status at Discharge: [...] sublingual Place 1 tablet under the tongue director of early childhood education before breakfast For: prevention of vitamin B12 [...] multivitamin capsule Take 1 capsule by mouth director of early childhood education before breakfast For: treatment to prevent vitamin [...] 04/19/2020 12:00 PM [facility] N IR 363 [facility] IR [facility] Main IMG 04/19/2020 1:00 PM [facility] NEW IR - TBD PROCEDURES [facility] IR [facility] 05/18/2020 10:00 AM Corbin Duque MD GI B2 200 GAN GASTRO 05/27/2020 9:30 AM [facility] ULTRASOUND 3 [facility] US [facility] 07/13/2020 2:00 PM Hipolito Reyes [...] the 3rd floor interventional radiology department in [facility] at 11:00 AM. If you have any questions please call [phone]. Active issues requiring follow up: Left PCN tube - Test results pending at discharge: none documented in this encounter Medications at Time of Discharge cyanocobalamin, vitamin B-12, 5,000 mcg tablet, sublingualIndica tions:Prevention of Vitamin B12 Deficiency [address] 1 tablet under the tongue director of early childhood education before breakfast losartan-hydroch lorothiazide (HYZAAR) 100-25 mg per tabletIndication s:hypertension Take 1 tablet by mouth nightly 02/23/2019 multivitamin capsuleIndicatio ns:Vitamin Deficiency Prevention Take 1 capsule by mouth director of early childhood education before breakfast cephalexin (KEFLEX) 500 mg capsuleIndicatio [...] DME or Home Health needs identified. * Andrew Sparks MD - 04/17/2020 7:56 AM CDT [facility] Daily Progress Note Urological Surgery PATIENT NAME: [...] Sparks MD - 04/16/2020 6:46 AM CDT [facility] Daily Progress Note Urological Surgery PATIENT NAME: [...] RADIOLOGY/ DIAGNOSTIC REVIEW: Recent Labs Lab Units 04/15/20 19004/14/20235804/13/20 2104 SODIUM mmol/L 135 135 137 POTASSIUM [...] Myers MD - 04/14/2020 7:00 AM CDT [facility] Daily Progress Note Urological Surgery PATIENT NAME: Zoey Joseph : 1970 ADMIT DATE: 04/12/2020 10:09 AM LOS: 0 Subjective CHIEF COMPLAINT: Bilateral nephrolithiasis INTERVAL HISTORY: CT w/ significant residual stone SITA, VSS, afebrile Pain control adequate -n/-v, tolerating diet +oob/+amb +f/-bm Objective MEDICATIONS: Scheduled: [OCT Hold] acetaminophen, 1,000 mg, oral, Q6H SREEDHAR ceFAZolin, 2,000 mg, intravenous, Once [OCT Hold] cholestyramine-aspartame, 1 packet, oral, BID - special [Held by Provider] enoxaparin, 40 mg, subcutaneous, Daily-2100 [Oct] ketorolac, 15 mg, intravenous, Q6H SREEDHAR [OCT Hold] ramelteon, 8 mg, oral, Nightly [Oct] sodium chloride 0.9%, 0.5-20 mL, intra-catheter, Q8H SREEDHAR Infusions: dextrose 5% and sodium chloride 0.45%, 75 mL/hr, Last Rate: 75 mL/hr (04/13/202140) Lactated Ringer's, 30 mL/hr, Last Rate: 30 mL/hr (04/14/20 0830) PRN: [OCT Hold] ondansetron ODT OR [OCT Hold] ondansetron ??? [Oct] oxyCODONE ??? [OCT Hold] sodium chloride 0.9% ??? sodium chloride 0.9% ??? sodium chloride 0.9% VITALS: 24hr Min/Max: Temp Min: 36.6 ??C (97.9 ??F) Max: 37 ??C (98.6 ??F) Pulse Min: 76 Max: 88 BP Min: 117/78 Max: 134/92 Resp Min: 16 Max: 29 SpO2 Min: 95 % Max: 99 % Most Recent: Vitals: 04/14/20 0433 04/14/20 0808 04/14/20 0810 04/14/20 0820 BP: 124/81 125/89 134/92 BP Location: Left arm Patient Position: Sitting Pulse: 84 86 88 88 Resp: 18 25 29 22 Temp: 37 ??C (98.6 ??F) 36.8 ??C (98.2 ??F) TempSrc: Oral Temporal SpO2: 99% 95% 96% 95% Weight: Height: I/O last 2 completed shifts: In: 405 [I.V.:405] Out: 1895 [Urine:1895] Intake/Output Summary (Last 24 hours) at 04/14/2020 09 Last data filed at 04/14/2020 0335 Gross per 24 hour Intake 405 ml Output 1570 ml Net -1165 ml PHYSICAL EXAM: General: NAD CV: skin and extremities wwp Respiratory:Nonlabored Abdomen: Soft, non-distended, appropriately tender to palpation : no means; L PCN in place, draining red urine Neuro: Alert and oriented LAB/ RADIOLOGY/ DIAGNOSTIC REVIEW: Recent Labs Lab Units 04/13/20210304/13/2043104/08/20 0814 SODIUM mmol/L 137 137 139 POTASSIUM [...] 9 16* 10 Recent Labs Lab Units 04/13/20210304/13/20 0432 04/08/20 0814 WBC K/cumm 8.4 9.5 [...] and as discussed with the resident/fellow.. * Sparks, Andrew Blake MD - 04/13/2020 11:42 AM CDT [facility] Daily Progress Note Urological Surgery PATIENT NAME: [...] Lactated Ringer's, 75 mL/hr, Last Rate: Stopped (04/12/20 181) PRN: ondansetron ODT OR ondansetron ??? oxyCODONE [...] SCDs, Lovenox Dispo: floor Andrew Sparks MD, [employer] Urology, PGY1 Cosigned by Hipolito Reyes MD at 04/13/2020 12:23 PM CDT * Valentina Goyal RN - 04/13/2020 7:58 AM CDT 04/13/20 3077 Information Information Obtained From Patient Referral Data Referral Source Operations Supervisor 2Nd Shift Referral Reason Discharge Planning Prior to Admission Primary Caregiver Self Support System Spouse/Significant Other Support system contact info (name, phone, availablity) spouse, Mayda Montiel Home Care Services No Durable Medical Equipment [...] verified to face sheet. HHC: none Transportation: spouse, Mayda Joseph Problem: ensure safe discharge when medically stable Plan/Goal Includes: CM to follow for needs Insurance verified as: [employer] [place] and [employer] Admit Source: non [...] MD General Surgery Resident Postgraduate Year [facility] 04/12/20 7:47 PM Cosigned by Hipolito Reyes [...] Daily-2100, 40 mg at 04/12/20 1946 ??? [MAR Hold] ketorolac (TORADOL) 15 mg/mL injection 15 mg, 15 mg, intravenous, Q6H SREEDHAR, 15 mg at 04/13/20 1500 ??? Lactated Ringer's (LR) infusion, 30 mL/hr, intravenous, Continuous ??? [MAR Hold] ondansetron ODT (ZOFRAN-ODT) disintegrating tablet 4 mg, 4 mg, oral, Q6H PRN OR [MAR Hold] ondansetron (ZOFRAN) injection 4 mg, 4 mg, intravenous, Q6H PRN ??? [MAR Hold] oxyCODONE (ROXICODONE) tablet 5 mg, 5 mg, oral, Q4H PRN, 5 mg at 04/14/20 0430 ??? [MAR Hold] ramelteon (ROZEREM) tablet 8 mg, 8 [...] Medication protocol when under care of a TERRAZZO POLISHER Planned anesthesia: General Induction: Induction: intravenous. Postoperative Plan: Postoperative administration opioids intended. No postoperative mechanical ventilation intended. Patient's planned disposition post procedure is 23 hour admit. Informed Consent: Discussed plan with TERRAZZO POLISHER. Anesthesia plan and risks discussed with patient. [...] and Planning Preoperative Evaluation Record Evaluation type/location: [facility] Planned procedure site: [facility] PVT OR (Pod 1) Date: [...] CVA/stroke Cardiovascular + Hypertension Hypertension year diagnosed: 2017. Pertinent negatives: CAD ; NM ; CABG ; valvular heart disease; valve [...] w/o CP or SOB. 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 Pre-procedure COVID19 testing performed at [facility]. Result pending. . Preoperative evaluation performed by [...] PLEASE DELIVER DIRECTLY TO THE FACILITY OF [facility] ATTN: PHARMACY, [address] [place] [address], [id number] Current Outpatient Medications: ??? cholestyramine-aspartame 4 gram [...] is leaking at the insertion site -- TNT POWDER WORKER Mikayla aware. He reports 1 BM this [...] 3:09 PM CDT Post Operative Assessment Zoey Joyner Layo 49 y.o. male with a history of [...] Or today as ordered and pt left it0820 this am. IVF's infusing as ordered. Left PCN tube to gravity bag with bloody drainage noted inbag. Voiding into urinal. Left flank dry dressing C&D&I. Oxycodone prn for pain control. * Op Note - Hipolito Reyes MD - 04/14/2020 10:35 AM CDT Operative Report SURGEON: Hipolito Reyes MD SURGICAL TEAM: Peanut Roaster: Jaimee Davis RN; Nazanin Doyle RN Billing Associate: RT Lissette Scrub Relief: ST Tiffanie Scrub: [...] PCNL. ANESTHESIA: General IMPLANTS: Left 8.5 Fr Lisbon loop nephrostomy tube OPERATIVE DETAILS Estimated Blood [...] advanced a motion wire down the 5 rwandan catheter into the bladder, then removed the nephrostomytube and 5 rwandan catheter. I advanced an 8-10 fr dilator [...] excluded calyx. We placed an 8.5 Fr Lisbon loop into the left lower pole under fluoro guidance, removed the sheath, held pressure to the back, and ultimately removed the motion wire. Nephrostogram through the Lisbon loop revealed good positioning of tubes and [...] Resident - Assisting Anesthesiologist: Luiza Robbins MD TERRAZZO POLISHER: Sandra Modi CRNA Peanut Roaster: Jaimee Davis RN; Nazanin Doyle RN Billing Associate: Kira Robles, Scrub Relief: ST Tiffanie Scrub: Carly Art [...] Report SURGEON: Hipolito Reyes MD SURGICAL TEAM: Peanut Roaster: Thea Jaimes RN; Nataliia Bone, AMIE; Khadra Alvarez RN Scrub: Ziggy Toure RN [...] performed flexible cystoscopy and placed a 5 rwandan left ureteral access catheter over a motion [...] stones with the rigid nephroscope, and the [employer] 2.4 Fr basket to remove stones with [...] thestone material. We placed an 8.5 Fr Lisbon loop into the left lower pole under fluoro guidance, removed the sheath, held pressure to the back, and then passed a 5 fr catheter into the distal left ureter. Nephrostogram through the Lisbon loop revealed good positioning of tubes. The Tubes on the back were sutured using 2-0 silk, a dressing on the back was applied, and his 5 rwandan catheter through the urethra was removed. He [...] Resident - Assisting No anesthesia staff entered. Peanut Roaster: Thea Jaimes RN; Nataliia Bone RN; Khadra [...] 04/12/2020 2: 27 PM CDT Bilateral nephrolithiasis TYPE AND SCREEN Timed 04/12/2020 11:10 AM [...] TECHNIQUE: ?? Prior to beginning the procedure, Dewey Protocol was performed to confirm the patient's identity and the planned procedure. ??The fluoroscopy time has been recorded in the electronic medical record. consent was obtained. The patient was positioned on the fluoroscopy table and a cranberry bog supervisor image obtained. ??Contrast was injected through the patient's indwelling 8.5 Serbian percutaneous nephrostomy catheter. Multiple fluoroscopic images were [...] procedure. TECHNIQUE: Prior to beginning the procedure, Dewey Protocol was performed to confirm the patient's identity and the planned procedure. The fluoroscopy time has been recorded in the electronic medical record. consent was obtained. The patient was positioned on the fluoroscopy table and a cranberry bog supervisor image obtained. Contrast was injected through the patient's indwelling 8.5 Serbian percutaneous nephrostomy catheter. Multiple fluoroscopic images were [...] of the percutaneous nephrostomy catheter. Dictated by: Luiza Waller, Chuy The radiology attending physician has personally reviewed this study, and had reviewed and/or edited this written report and agrees with it. Electronically signed by: Raulito Junior M.D. Diane Degroot TNT POWDER WORKER IM IR PROCEDURES Final Result * (ABNORMAL) CBC without differential (04/17/2020 11:04 PM CDT) [facility] WBC 8.8 3.8 - 9.9 K/cumm [facility] Hgb 11.0(L) 13.0 - 17.5 g/dL [facility] Hct 32.2(L) 38.9 - 50.3 % [facility] Plt 305 150 - 400 K/cumm [facility] MPV 9.5 9.1 - 12.3 fL [facility] RBC 3.68(L) 4.30 - 5.80 M/cumm [facility] MCV 87.5 81.3 - 96.4 fL [facility] MCH 29.9 27.1 - 33.3 pg [facility] MCHC 34.2 32.3 - 35.7 g/dL [facility] RDW CV 13.5 11.1 - 14.9 % [facility] RDW SD 43.6 35.7 - 48.1 fL [facility] NRBC abs 0.00 0.00 - 0.01 K/cumm [facility] Blood specimen (specimen) 04/17/2020 11:04 PM CDT 04/17/2020 11:25 PM CDT Hipolito Reyes MD LAB BLOOD ORDERABLE S Final Result [facility] Department [place] [address] * Basic metabolic panel (04/17/2020 11:04 PM CDT) Sodium 137 135 - 145 mmol/L [facility] Potassium, pl 3.9 3.3 - 4.9 mmol/L [facility] Chloride 103 97 - 110 mmol/L [facility] CO2 24 22 - 32 mmol/L [facility] Anion gap 10 2 - 15 mmol/L [facility] BUN 13 8 - 25 mg/dL [facility] Creatinine 1.10 0.80 - 1.30 mg/dL [facility] Glucose 126 70 - 199 mg/dL [facility] Comment: Interpretive Data Fasting glucose >/= 126 [...] 2017. Calcium 8.7 8.5 - 10.3 mg/dL [facility] CAR[facility]NA[facility] Blood specimen (specimen) 04/17/2020 11:04 PM CDT 04/17/2020 11:23 PM CDT Hipolito Reyes MD LAB BLOOD ORDERABLE S Final Result [facility] [place] [address] * XR Chest 1 View (04/17/2020 1:57 [...] 9:25 AM CDT 04/17/2020 10:27 AM CDT Bryan ACOSTA - 04/21/2020 12:00 PM CDT 1. ?Blood [...] organism identification may be performed using the Kiwupigene Gram-Positive Blood Culture Assay. This assay detects microbial DNA in positive blood culture broth via hybridization of target DNA to capture oligonucleotides on a microarray. This assay has been cleared by the [place] Food and Drug Administration and its performance characteristics have been verified by the [facility]. 5. ?For questions about this culture, contact the Microbiology Laboratory at [phone]. Interpretive data was last revised on 2020. Hipolito Reyes MD LAB MICROBIOLOGY - GENERAL ORDERABLES Final Result RYAN [facility] [place] [address] * Blood culture Blood Antecubital, right (04/17/2020 9:25 AM CDT) Report Final Report: No growth RYAN [facility] Blood specimen (specimen) (Antecubital, right) [...] organism identification may be performed using the Kiwupigene Gram-Positive Blood Culture Assay. This assay detects microbial DNA in positive blood culture broth via hybridization of target DNA to capture oligonucleotides on a microarray. This assay has been cleared by the [place] Food and Drug Administration and its performance characteristics have been verified by the [facility]. 5. ?For questions about this culture, contact the Microbiology Laboratory at [phone]. Interpretive data was last revised on 2020. Hipolito Reyes MD LAB MICROBIOLOGY - GENERAL ORDERABLES Final Result RYAN THER[facility] Department [place] [address] * Urine culture Urine, nephrostomy tube (04/17/2020 9:12 AM CDT) Report Final Report: No growth RYAN ACOSTA Urine, nephrostomy tube 04/17/2020 9:12 AM CDT 04/17/2020 10:26 AM CDT Narrative RYAN CARDENAS - 04/18/2020 11:52 AM CDT Indications for Culture:->Urology patient Testing performed by [facility] ([phone]) Hipolito Reyes MD LAB MICROBIOLOGY - GENERAL ORDERABLES Final Result Performing Organization Address City/[facility] Co de Phone Number [facility] [place] [address] * (ABNORMAL) CBC without differential (04/16/2020 9:57 PM CDT) Pathologist [facility] WBC 9.7 3.8 - 9.9 K/cumm [facility] Hgb 11.3(L) 13.0 - 17.5 g/dL [facility] Hct 32.7(L) 38.9 - 50.3 % [facility] Plt 259 150 - 400 K/cumm [facility] MPV 9.7 9.1 - 12.3 fL [facility] RBC 3.75(L) 4.30 - 5.80 M/cumm [facility] MCV 87.2 81.3 - 96.4 fL [facility] MCH 30.1 27.1 - 33.3 pg [facility] MCHC 34.6 32.3 - 35.7 g/dL [facility] RDW CV 13.3 11.1 - 14.9 % [facility] RDW SD 42.4 35.7 - 48.1 fL [facility] NRBC abs 0.00 0.00 - 0.01 K/cumm [facility] Blood specimen (specimen) 04/16/2020 9:57 PM CDT 04/16/2020 10:24 PM CDT Hipolito Reyes MD LAB BLOOD ORDERABLE S Final Result Performing Organization Address City/[facility]/ZIP Co de Phone Number [facility] Department [place] [address] * Basic metabolic panel (04/16/2020 9:57 PM CDT) Pathologist [facility] Sodium 136 135 - 145 mmol/L [facility] Potassium, pl 3.6 3.3 - 4.9 mmol/L [facility] Chloride 103 97 - 110 mmol/L [facility] CO2 23 22 - 32 mmol/L [facility] Anion gap 10 2 - 15 mmol/L [facility] BUN 10 8 - 25 mg/dL [facility] Creatinine 1.17 0.80 - 1.30 mg/dL [facility] Glucose 123 70 - 199 mg/dL [facility] Comment: Interpretive Data Fasting glucose >/= 126 [...] 2017. Calcium 8.7 8.5 - 10.3 mg/dL [facility] Blood specimen (specimen) 04/16/2020 9:57 PM CDT 04/16/2020 10:24 PM CDT Hipolito Reyes MD LAB BLOOD ORDERABLE S Final Result [facility] [place] [address] * Blood culture Blood (04/15/2020 7:19 PM CDT) Report Final Report: No growth [facility] Blood specimen (specimen) 04/15/2020 7:19 PM CDT 04/15/2020 8:51 PM CDT Narrative RYAN [facility] - 04/20/2020 7:01 AM CDT 1. ?Blood [...] organism identification may be performed using the Kiwupigene Gram-Positive Blood Culture Assay. This assay detects microbial DNA in positive blood culture broth via hybridization of target DNA to capture oligonucleotides on a microarray. This assay has been cleared by the [place] Food and Drug Administration and its performance characteristics have been verified by the [facility]. 5. ?For questions about this culture, contact the Microbiology Laboratory at [phone]. Interpretive data was last revised on 2020. Hipolito Reyes MD LAB MICROBIOLOGY - GENERAL ORDERABLES Final Result [facility] [place] [address] * (ABNORMAL) Basic metabolic panel (04/15/2020 7:00 PM CDT) Sodium 135 135 - 145 mmol/L [facility] Potassium, pl 3.7 3.3 - 4.9 mmol/L [facility] Chloride 106 97 - 110 mmol/L [facility] CO2 21(L) 22 - 32 mmol/L [facility] Anion gap 8 2 - 15 mmol/L [facility] BUN 13 8 - 25 mg/dL [facility] Creatinine 1.23 0.80 - 1.30 mg/dL [facility] Glucose 149 70 - 199 mg/dL [facility] Comment: Interpretive Data Fasting glucose >/= 126 [...] 2017. Calcium 8.6 8.5 - 10.3 mg/dL [facility] Blood specimen (specimen) 04/15/2020 7:00 PM CDT 04/15/2020 7:43 PM CDT Hipolito Reyes MD LAB BLOOD ORDERABLE S Final Result [facility] [place] [address] * (ABNORMAL) CBC without differential (04/15/2020 7:00 PM CDT) WBC 10.6(H) 3.8 - 9.9 K/cumm [facility] Hgb 11.3(L) 13.0 - 17.5 g/dL [facility] Hct 33.0(L) 38.9 - 50.3 % [facility] Plt 254 150 - 400 K/cumm [facility] MPV 9.8 9.1 - 12.3 fL [facility] RBC 3.77(L) 4.30 - 5.80 M/cumm [facility] MCV 87.5 81.3 - 96.4 fL [facility] MCH 30.0 27.1 - 33.3 pg [facility] MCHC 34.2 32.3 - 35.7 g/dL [facility] RDW CV 13.3 11.1 - 14.9 % [facility] RDW SD 43.0 35.7 - 48.1 fL [facility] NRBC abs 0.00 0.00 - 0.01 K/cumm [facility] Blood specimen (specimen) 04/15/2020 7:00 PM CDT 04/15/2020 7:44 PM CDT Hipolito Reyes MD LAB BLOOD ORDERABLE S Final Result Performing Organization Address [facility]/ZIP Co de Phone Number [facility] [place] [address] * Urine culture Urine, nephrostomy tube (04/15/2020 7:00 PM CDT) Report Final Report: No growth RYAN ACOSTA Urine, nephrostomy tube 04/15/2020 7:00 PM CDT 04/15/2020 8:40 PM CDT Narrative RYAN CARDENAS - 04/16/2020 9:04 PM CDT Indications for Culture:->Urology patient Testing performed by [facility] ([phone]) Hipolito Reyes MD LAB MICROBIOLOGY - GENERAL ORDERABLES Final Result Performing Organization Address [facility] Co de Phone Number RYAN [facility] Department [place] [address] * Blood culture Blood (04/15/2020 7:00 PM CDT) Report Final Report: No growth RYAN CARDENAS Blood specimen (specimen) 04/15/2020 7:00 PM CDT 04/15/2020 8:02 PM CDT Narrative RYAN [facility] - 04/20/2020 7:01 AM CDT 1. ?Blood [...] organism identification may be performed using the Kiwupigene Gram-Positive Blood Culture Assay. This assay detects microbial DNA in positive blood culture broth via hybridization of target DNA to capture oligonucleotides on a microarray. This assay has been cleared by the [place] Food and Drug Administration and its performance characteristics have been verified by the [facility]. 5. ?For questions about this culture, contact the Microbiology Laboratory at [phone]. Interpretive data was last revised on 2020. Hipolito Reyes MD LAB MICROBIOLOGY - GENERAL ORDERABLES Final Result Performing Organization Address City/[facility] Co de Phone Number [facility] Department [place] [address] * Phosphorus (04/14/2020 11:59 PM CDT) Phosphorus, pl 2.7 2.3 - 4.5 mg/dL [facility] Blood specimen (specimen) 04/14/2020 11:59 PM CDT 04/15/2020 12:33 AM CDT Hipolito Reyes MD LAB BLOOD ORDERABLE S Final Result Performing Organization Address [facility] [[email or web address]] de Phone Number [facility] [place] [address] * Magnesium (04/14/2020 11:59 PM CDT) Magnesium 1.6 1.4 - 2.5 mg/dL [facility] Blood specimen (specimen) 04/14/2020 11:59 PM CDT 04/15/2020 12:33 AM CDT Hipolito Reyes MD LAB BLOOD ORDERABLE S Final Result Performing Organization Address [facility] Co de Phone Number [facility] [place] [address] * (ABNORMAL) Basic metabolic panel (04/14/2020 11:59 PM CDT) Pathologist [facility] Sodium 135 135 - 145 mmol/L [facility] Potassium, pl 3.9 3.3 - 4.9 mmol/L [facility] Chloride 104 97 - 110 mmol/L [facility] CO2 23 22 - 32 mmol/L [facility] Anion gap 8 2 - 15 mmol/L [facility] BUN 16 8 - 25 mg/dL [facility] Creatinine 1.32(H) 0.80 - 1.30 mg/dL [facility] Glucose 129 70 - 199 mg/dL [facility] Comment: Interpretive Data Fasting glucose >/= 126 [...] 2017. Calcium 8.3(L) 8.5 - 10.3 mg/dL [facility] Blood specimen (specimen) 04/14/2020 11:59 PM CDT 04/15/2020 12:33 AM CDT Hipolito Reyes MD LAB BLOOD ORDERABLE S Final Result RYAN [facility] [place] [address] * (ABNORMAL) CBC without differential (04/14/2020 11:59 PM CDT) [facility] WBC 9.3 3.8 - 9.9 K/cumm [facility] Hgb 11.5(L) 13.0 - 17.5 g/dL [facility] Hct 34.2(L) 38.9 - 50.3 % [facility] Plt 242 150 - 400 K/cumm [facility] MPV 9.8 9.1 - 12.3 fL [facility] RBC 3.81(L) 4.30 - 5.80 M/cumm [facility] MCV 89.8 81.3 - 96.4 fL [facility] MCH 30.2 27.1 - 33.3 pg [facility] MCHC 33.6 32.3 - 35.7 g/dL [facility] RDW CV 13.8 11.1 - 14.9 % [facility] RDW SD 45.2 35.7 - 48.1 fL [facility] NRBC abs 0.00 0.00 - 0.01 K/cumm [facility] Blood specimen (specimen) 04/14/2020 11:59 PM CDT 04/15/2020 12:47 AM CDT Hipolito Reyes MD LAB BLOOD ORDERABLE S Final Result [facility] [place] [address] * FL Fluoroscopy < 1 Hour (04/14/2020 12:10 PM CDT) Narrative [facility] - 04/14/2020 12:49 PM CDT The images from this study are not interpreted by Radiology. ??Please refer to the physician's procedure / OR operative note. Hipolito Reyes MD IMG FLUOROSCOPY PRO CEDURES Final Result [facility] * (ABNORMAL) CBC without differential (04/13/2020 9:04 PM CDT) WBC 8.4 3.8 - 9.9 K/cumm [facility] Hgb 12.6(L) 13.0 - 17.5 g/dL [facility] Hct 37.9(L) 38.9 - 50.3 % [facility] Plt 282 150 - 400 K/cumm [facility] MPV 9.7 9.1 - 12.3 fL [facility] RBC 4.27(L) 4.30 - 5.80 M/cumm [facility] MCV 88.8 81.3 - 96.4 fL [facility] MCH 29.5 27.1 - 33.3 pg [facility] MCHC 33.2 32.3 - 35.7 g/dL [facility] RDW CV 13.9 11.1 - 14.9 % [facility] RDW SD 45.1 35.7 - 48.1 fL [facility] NRBC abs 0.00 0.00 - 0.01 K/cumm [facility] Blood specimen (specimen) 04/13/2020 9:04 PM CDT 04/13/2020 10:08 PM CDT Diane Degroot [employer] LAB BLOOD ORDERABLES Final Res ult [facility] [place] [address] * Basic metabolic panel (04/13/2020 9:04 PM CDT) Sodium 137 135 - 145 mmol/L [facility] Potassium, pl 3.9 3.3 - 4.9 mmol/L [facility] Chloride 105 97 - 110 mmol/L [facility] CO2 23 22 - 32 mmol/L [facility] Anion gap 9 2 - 15 mmol/L [facility] BUN 23 8 - 25 mg/dL [facility] Creatinine 1.30 0.80 - 1.30 mg/dL [facility] Glucose 116 70 - 199 mg/dL [facility] Comment: Interpretive Data Fasting glucose >/= 126 [...] 8.9 8.5 - 10.3 mg/dL RYAN [facility] Blood specimen (specimen) 04/13/2020 9:04 PM CDT 04/13/2020 10:10 PM CDT us Diane Degroot [employer] LAB BLOOD ORDERABLES Final Res ult [facility] [place] [address] * CT KUB Stone WO Contrast (04/13/2020 [...] Electronically signed by: Obey Parsons M.D., MPH [facility] Libia Reyes MD IM CT PROCEDURES F inal Result * CBC without differential (04/13/2020 4:32 AM CDT) WBC 9.5 3.8 - 9.9 K/cumm [facility] Hgb 13.1 13.0 - 17.5 g/dL [facility] Hct 39.7 38.9 - 50.3 % [facility] Plt 307 150 - 400 K/cumm [facility] MPV 9.5 9.1 - 12.3 fL [facility] RBC 4.48 4.30 - 5.80 M/cumm [facility] MCV 88.6 81.3 - 96.4 fL [facility] MCH 29.2 27.1 - 33.3 pg [facility] MCHC 33.0 32.3 - 35.7 g/dL [facility] RDW CV 13.5 11.1 - 14.9 % [facility] RDW SD 44.2 35.7 - 48.1 fL [facility] NRBC abs 0.00 0.00 - 0.01 K/cumm [facility] Blood specimen (specimen) 04/13/2020 4:32 AM CDT 04/13/2020 5:13 AM CDT Hipolito Reyes MD LAB BLOOD ORDERABLE S Final Result [facility] [place] [address] * (ABNORMAL) Basic metabolic panel (04/13/2020 4:32 AM CDT) Pathologist [facility] Sodium 137 135 - 145 mmol/L [facility] Potassium, pl 4.3 3.3 - 4.9 mmol/L [facility] Chloride 97 97 - 110 mmol/L [facility] CO2 24 22 - 32 mmol/L [facility] Anion gap 16(H) 2 - 15 mmol/L [facility] BUN 23 8 - 25 mg/dL [facility] Creatinine 1.20 0.80 - 1.30 mg/dL [facility] Glucose 131 70 - 199 mg/dL [facility] Comment: Interpretive Data Fasting glucose >/= 126 [...] 2017. Calcium 8.9 8.5 - 10.3 mg/dL [facility] Blood specimen (specimen) 04/13/2020 4:32 AM CDT 04/13/2020 5:13 AM CDT Hipolito Reyes MD LAB BLOOD ORDERABLE S Final Result Performing Organization Address City/[facility]/ZIP Co de Phone Number [facility] [place] [address] * XR Chest 1 View (Portable) (04/12/2020 [...] size. Electronically signed by: Tulio Azul M.D. Hipolito Reyes MD IMG XR PROCEDURES F inal Result * Tissue aerobic culture Stone Kidney (04/12/2020 2:30 PM CDT) Report Final Report: No growth [facility] Stone (Kidney) 04/12/2020 2: 30 PM CDT 04/13/2020 8:06 AM CDT Narrative [facility] - 04/15/2020 9:22 AM CDT Left Kidney Stone for Routine Culture Testing performed by [facility] ([phone]) Specimens submitted from normally sterile body sites [...] MICROBIOLOGY - GENERAL ORDERABLES Final Result RYAN [facility] [place] [address] * Surgical pathology (04/12/2020 2:27 PM CDT) Tissue (Calculus/calculi /stone, gross and Chemical Analysis) 04/12/2020 2:27 PM CDT Narrative PATHOLOGY [facility] - 04/13/2020 12:05 PM CDT EPIC results best viewed via link to PDF [facility] Odilia Juarez [facility] [place] [address] SURGICAL PATHOLOGY REPORT FINAL WITH ADDENDUM Patient Name: ?? ZOEY JOSEPH Gender: ??M : ??1970 (Age: 49) Address: ??[address] [place] [address] ??[id number] Hospital #: ??[id number] Taken:04/12/2020 Received:04/12/2020 Reported: 04/13/2020 Patient Type: [facility] Inpatient ?? Service: Surgery Location: [place] [address] Physician(s): ??MD Jayla Fuentes M.D. Diagnosis: Left [...] submitted for chemical analysis. PA(s): ESTRELLA Beltran ([facility]) By this signature, I attest that [...] by the Surgical Pathology Department at [facility] as part of an ongoing water quality [...] determined by the Surgical Pathology Department of [facility]. ??It has not been cleared or approved by the [place]. [place]. Food and Drug Administration. IMAGES AND SCANNED DOCUMENTS, IF INCLUDED, ONLY VIEWABLE IN PDF VERSION OF REPORT Hipolito Reyes MD LAB PATHOLOGY ORDER DONELL Final Result Performing Organization Address City/[facility]/ZIP Co de Phone Number PATHOLOGY [facility] [address]rd Floor [place], [place] [phone] * Type and screen (04/12/2020 11:10 AM CDT) Juan, indirect Negative [facility] ABO Rh O Positive RY[facility] Comment:28 - Hemolyzed speci men Blood specimen (specimen) 04/12/2020 11:10 AM CDT 04/12/2020 11:18 AM CDT Narrative R[facility] - 04/12/2020 12:37 PM CDT Has the patient had Daratumumab or Isatuximab in the past 6 months?->Unknown Hipolito Reyes MD LAB BLOOD BANK TEST ORDERABLES Final Result Performing Organization Address City/[facility] Co de Phone Number [facility] [place] [address] documented in this encounter Visit Diagnoses Diagnosis Bilateral nephrolithiasis- Primary Preoperative testing Unspecified pre-operative examination Other acute kidney failure (HCC) Bilateral nephrolithiasis Other acute kidney failure (HCC) documented in [...] Given 04/17/2020 3:20 PM CDT 1,000 mg cephalexin (KEFLEX) capsule 500 mg 500 mg, oral, 4 times daily, First dose on 04/18/20 at 0800, Indications: Urinary Tract/Genitourinary InfectionIndications:Urinary Tract/Genitourinary [...] Given 04/13/2020 8:06 AM CDT 1 packet docusate sodium (COLACE) capsule 100 mg 100 [...] CDT 40 mg Le ft Lower Abdomen ioversoL (OPTIRAY 320) injection As needed, Starting on Millicent 04/14/20 at 1159, Intra-Op Given 04/14/2020 11:59 AM CDT 70 mL ondansetron (ZOFRAN) injection 4 mg 4 mg, [...] Given 04/17/2020 6:31 AM CDT 5 mg ramelteon (ROZEREM) tablet 8 mg 8 mg, oral, Nightly, First dose on Sat04/13/20 at 2145, Indications: Sleep-Onset InsomniaIndications:Sleep-Onset Insomnia Given 04/17/2020 9:09 PM CDT 8 m g Given 04/16/2020 9:09 PM CDT 8 mg Given 04/15/2020 8:22 PM CDT 8 mg sodium chloride 0.9 % irrigation As needed, Starting on Sat04/14/20 at 1104, Intra-Op Given 04/14/2020 12:00 PM CDT 9,000 mL Surgical Site Given 04/14/2020 11:04 AM CDT 3,000 mL S urgical Site sodium chloride 0.9% flush 0.5-20 mL [...] Indications: Pain 0022 (Given - Provider: Melany Collado, RN)0545 (Given - Provider: Melany Collado, RN)0936 (Given - Provider: Ernestine Graham RN)1713 (Given - Provider: Ernestine Graham RN)2317 (Given - Provider: Charmaine Evans, RN) 0423 (Given - Provider: Charmaine Evans, RN)0917 (Given - Provider: Anisha Miller RN)1520 (Given - Provider: Anisha Miller RN)2110 (Not Given - Provider: Amna Appiah RN [...] Insomnia 2108 (Given - Provider: Charmaine Evans, AMIE) 2108 (Given - Provider: Amna Appiah RN) sodium chloride 0.9% flush 0.5-20 mL 0.5-20 mL, intra-catheter, Every 8 hours scheduled, First dose on Sat04/12/20 at 2200, Flush volume based on line type and size. , Indications: Flushing 0522 (Not Given - Provider: Melany Collado RN - Reason: IV Infusing)1355 (Given - Provider: Ernestine Graham RN)2145 (Given - Provider: Charmaine Evans RN) 0623 (Given - Provider: Charmaine Evans RN)1520 (Given - Provider: Anisha Miller, AMIE)211 (Given - Provider: Amna Appiah RN) 045 (Given - Provider: Amna Appiah RN)1301 (Not Given - Provider: Anisha Miller, RN - Reason: Loss of IV access) PRN Medication Order 04/16/2020 04/17/2020 04/18/2020 docusate sodium (COLACE) capsule 100 mg 100 mg, oral, 2 times daily PRN, constipation, Starting on 04/16/20 at 0808, Indications: constipation 211 (Given - Provider: Charmaine Evans RN) 0916 (Given - Provider: Anisha Miller, AMIE)210 (Not Given - Provider: Amna Appiah RN - Reason: Patient/family refused) ondansetron (ZOFRAN) injection 4 mg(Linked Group 1) 4 mg, intravenous, Administer over 2 Minutes, Every 6 hours PRN, nausea, vomiting, if not tolerating PO, Starting on 04/12/20 at 1849, Indications: nausea and vomiting ondansetron ODT (ZOFRAN-ODT) disintegrating tablet 4 mg(Linked Group 1) 4 mg, oral, Every 6 hours PRN, nausea, vomiting, Starting on 04/12/20 at 1849, Indications: nausea and vomiting oxyCODONE (ROXICODONE) tablet 5 mg 5 mg, oral, Every 4 hours PRN, 1st line for pain, Starting on 04/12/20 at 1849, May repeat in 1 hour if pain is uncontrolled or increasing. Max 2 doses within 1 dosing interval., Indications: Pain 1417 (Given - Provider: Ernestine Graham RN)2119 (Given - Provider: Charmaine Evans RN) 0228 (Given - Provider: Charmaine Evans RN)0631 (Given - Provider: Charmaine Evans, AMIE)1714 (Given - Provider: Anisha Miller, AMIE)2108 (Given - Provider: Amna Appiah RN) sodium chloride 0.9% flush 0.5-20 mL 0.5-20 mL, intra-catheter, As needed, line care, Starting on 04/12/20 at 1849, Flush volume based on line type and size. Flush before and after each use. , Indications: Flushing Linked Groups Order Group 1: ondansetron ODT (ZOFRAN-ODT) disintegrating tablet 4 mgJump to med 4 mg, oral, Every 6 hours PRN, nausea, vomiting, Starting on Sat04/12/20 at 1849, Indications: nausea and vomiting Or ondansetron (ZOFRAN) injection 4 mgJump to med 4 mg, intravenous, Administer over 2 Minutes, Every 6 hours PRN, nausea, vomiting, if not tolerating PO, Starting on Sat04/12/20 at 1849, Indications: nausea and vomiting documented in this encounter Orders Medications Ordered That Buck ht Not Have Been Administered Count Last Ordered Date First Ordered Date cephalexin (KEFLEX) capsule 500 mg 1 2019 potassium chloride ER (KLOR- CON) extended release tablet 40 mEq 1 04/17/2020 docusate sodium (COLACE) capsule 100 mg 1 0 04/16/2020 cefTRIAXone (ROCEPHIN) 1,000 mg/10 mL in sterile water (premix) 1,000 mg 1 04/15/2020 ceFAZolin (ANCEF) 2,000 mg/2 0 mL in sterile water (premix) 2,000 mg 2 04/14/2020 04/12/20 20 fentaNYL (SUBLIMAZE) preserv ative free injection 50 mcg 1 04/14/2020 HYDROmorphone (DILAUDID) injection 0.4 mg 2 04/14/2020 04/12/2020 Lactated Ringer's (LR) infusion 2 0 04/12/2020 naloxone (NARCAN) 0.4 mg/mL injection 0.04-0.4 mg 2 04/14/2020 04/12/2020 ondansetron (ZOFRAN) injection 4 mg 3 04/1404/12/2020 sodium chloride 0.9% flush 0.5-20 mL 5 03/2004/12/2020 ramelteon (ROZEREM) tablet 8 mg 1 0 acetaminophen (TYLENOL) tablet 1,000 mg 1 0 04/12/2020 acetaminophen (TYLENOL) tablet 500 mg 1 cholestyramine-aspartame (QU ESTRAN LIGHT) 4 gram packet 1 packet 1 04/12/2020 dextrose 5% and sodium chlor angelia 0.45% infusion (premix) 1 04/12/2020 diphenhydrAMINE (BENADRYL) i njection 12.5 mg 1 04/12/2020 enoxaparin (LOVENOX) syringe 40 mg 1 2019 HYDROmorphone (DILAUDID) injection 0.2 mg 1 04/12/2020 ioversoL (OPTIRAY 320) injection 1 04/12/20 20 ketorolac (TORADOL) 15 mg/mL injection 15 mg 1 04/12/2020 ondansetron ODT (ZOFRAN-ODT) disintegrating tablet 4 mg 1 04/12/2020 oxyCODONE (ROXICODONE) tablet 5 mg 2 2019 sodium chloride 0.9 % irrigation 1 04/12/20 20 Nursing Count Last Ordered Date First Orde red Date MEANS CATHETER - DISCONTINUE 1 04/13/2020 documented in this encounter Care Teams Olive Packer Relationship Specialty Start Date End Date Jayla Phoenix MD [address] [place] [address] PCP - General 08/07/17 documented as of this encounter
--- OUTSIDE RECORDS SUMMARY | 2024-08-23 08:07 | XMS_ITS | Encounter Summary ---
Author Organization [facility] Healthcare Address [address] [place] [address] Care Team Providers Care High Pressure Cleaner Name Role Phone Jayla Phoenix MD Primary Care Provider [phone] Encounter Details Date Type Department Care Team (Late st Contact Info) Description 04/12/2020 12:55 PM CDT - 04/12/2020 5:15 PM CDT Surgery [facility] Operating Room [address] [place] [address] Hipolito Reyes MD [address] [place] [address] PERCUTANEOUS NEPHROLITHOTOMY Surgery Details Date/Time Status Location OR Service Patient Class Case Cl ass Case Type Trauma Case? 04/12/2020 12:55 PM Posted [facility] OR POD 1 324 Urology Outpatient in Bed Time Sensitive - 1 Week Panel 1 Procedure LRB Anes Op Region Wound Class Comments PERCUTANEOUS NEPHROLITHOTOMY Left General Flank Class II - Clean Contaminated Surgeon Surgeon Role Service Panel Hipolito Reyes MD Primary Urology 1 Jace Houston MD Resident - Assisting Minor Procedures 1 Case Notes 04/05 approved to schedule per email from Dr. 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 Gender Identity Male 02/04/2019 10:52 AM CDT Sexual Orientation Straight 02/04/2019 10 :52 AM CDT documented as of this encounter Last Filed Vital Signs Vital Sign Reading Time Taken Comments Blood Pressure 113/84 04/12/2020 5:10 PM CDT Pulse 84 04/12/2020 5:15 PM CDT Temperature 36.1 ??C (97 ??F) 04/12/2020 4:00 PM CDT Respiratory Rate 18 04/12/2020 5:15 PM CDT Oxygen Saturation 92% 04/12/2020 5:15 PM CDT Inhaled Oxygen Concentration - - Weight - - Height - - Body Mass Index - - documented in this encounter Discharge Summaries * Diane Degroot, QUALITY CONTROL ENGINEER - 04/18/2020 9:08 AM CDT Inpatient Discharge Summary BRIEF OVERVIEW Admitting Provider: Hipolito Reyes MD Discharge Provider: Hipolito Reyes MD Primary Care Physician at Discharge: Jayla Phoenix MD [phone] Admission Date: 04/12/2020 Discharge Date: 04/18/2020 Admission Location: [facility] Problems/Diagnoses: Principal Problem: Bilateral nephrolithiasis Resolved [...] Discharge Disposition: Discharge to home or self [facility]FP to self care Code Status at Discharge: [...] sublingual Place 1 tablet under the tongue early childhood associate teacher before breakfast For: prevention of vitamin B12 [...] multivitamin capsule Take 1 capsule by mouth early childhood associate teacher before breakfast For: treatment to prevent vitamin [...] Time Provider Department Center 04/19/2020 12:00 PM BJ N IR 363 BJ N IR [facility] Main IMG 04/19/2020 1:00 PM [facility] NEW IR - TBD PROCEDURES [facility] IR [facility] 05/18/2020 10:00 AM Corbin Duque MD GI BW B2 200 GAN GASTRO 05/27/2020 9:30 AM [facility] ULTRASOUND 3 [facility] US [facility] 07/13/2020 2:00 PM Hipolito Reyes MD URO BW MOB4 GU 02/22/2021 10:00 AM Gabriel Horner MD SPINE [...] the 3rd floor interventional radiology department in [facility] at 11:00 AM. If you have any questions please call [phone]. Active issues requiring follow up: Left PCN tube - Test results pending at discharge: none documented in this encounter Medications at Time of Discharge cyanocobalamin, vitamin B-12, 5,000 mcg tablet, sublingualIndica tions:Prevention of Vitamin B12 [address] 1 tablet under the tongue early childhood associate teacher before breakfast losartan-hydroch lorothiazide (HYZAAR) 100-25 mg per tabletIndication s:hypertension Take 1 tablet by mouth nightly 02/23/2019 multivitamin capsuleIndicatio ns:Vitamin Deficiency Prevention Take 1 capsule by mouth early childhood associate teacher before breakfast cephalexin (KEFLEX) 500 mg capsuleIndicatio [...] DME or Home Health needs identified. * SparksAndrew MD - 04/17/2020 7:56 AM CDT [facility] Daily Progress Note Urological Surgery [...] Sparks MD - 04/16/2020 6:46 AM CDT [facility] Daily Progress Note Urological Surgery [...] 8 9 Recent Labs Lab Units 04/15/20189904/14/20235804/13/20 210 WBC K/cumm 10.6* 9.3 8.4 HEMOGLOBIN g/dL [...] Myers MD - 04/14/2020 7:00 AM CDT [facility] Daily Progress Note Urological Surgery PATIENT NAME: Zoey Joseph : 1970 ADMIT DATE: 04/12/2020 10:09 AM LOS: 0 Subjective CHIEF COMPLAINT: Bilateral nephrolithiasis INTERVAL HISTORY: CT w/ significant residual stone SITA, VSS, afebrile Pain control adequate -n/-v, tolerating diet +oob/+amb +f/-bm Objective MEDICATIONS: Scheduled: [Oct] acetaminophen, 1,000 mg, oral, Q6H SREEDHAR ceFAZolin, [...] Last Rate: 30 mL/hr (04/14/20 0830) PRN: [Oct] ondansetron ODT OR [Oct] ondansetron ??? [Oct] oxyCODONE ??? [Oct] sodium chloride 0.9% ??? sodium chloride 0.9% [...] 9 16* 10 Recent Labs Lab Units 04/13/20210304/13/2043104/08/20 0814 WBC K/cumm 8.4 9.5 5.4 HEMOGLOBIN [...] Blake MD - 04/13/2020 11:42 AM CDT [facility] Daily Progress Note Urological Surgery [...] Ringer's, 75 mL/hr, Last Rate: Stopped (04/12/20 1811) PRN: ondansetron ODT OR ondansetron ??? oxyCODONE [...] SCDs, Lovenox Dispo: floor Andrew Sparks MD, [facility] [employer] Urology, PGY1 Cosigned by Hipolito Reyes MD at 04/13/2020 12:23 PM CDT * Valentina Goyal RN - 04/13/2020 7:58 AM CDT 04/13/20 0756 Information Information Obtained From Patient Referral Data Referral Source Maintenance Supervisor Referral Reason Discharge Planning Prior to Admission [...] MD General Surgery Resident Postgraduate Year One [facility] [employer] 04/12/20 7:47 [...] multivitamin capsule 04/07/2020 -- -- Historical Provider, MD ustekinumab (STELARA) 130 mg/26 mL solution () Unknown 04/07/20 04/07/20 Corbin Duque MD Infuse 104 mL (520 mg total) into a venous catheter once for 1 dose Notes: Pt states has not started. Current Facility-Administered Medications: ??? [MAR Hold] acetaminophen (TYLENOL) tablet 1,000 mg, 1,000 mg, oral, Q6H SEREDHAR, 1,000 mg at 04/14/20 0019 ??? ceFAZolin (ANCEF) 2,000 mg/20 mL in sterile water (premix) 2,000 mg, 2,000 mg, intravenous, Once ??? [OCT Hold] cholestyramine-aspartame (QUESTRAN LIGHT) 4 gram packet 1 packet, 1 packet, oral, BID - special, 1 packet at 04/14/20429 ??? dextrose 5% and sodium chloride 0.45% infusion (premix), 75 mL/hr, intravenous, Continuous, Last Rate: 75 mL/hr at 04/13/202140, 75 mL/hr at 04/13/202140 ??? [Held by Provider] enoxaparin (LOVENOX) syringe 40 mg, 40 mg, subcutaneous, Daily-2100, 40 mg at 04/12/201945 ??? [MAR Hold] [...] 8 mg, oral, Nightly, 8 mg at 08/26/20 2137 ??? [MAR Hold] sodium chloride 0.9% [...] Medication protocol when under care of a BEFORE SCHOOL BABYSITTER Planned anesthesia: General Induction: Induction: intravenous. Postoperative Plan: Postoperative administration opioids intended. No postoperative mechanical ventilation intended. Patient's planned disposition post procedure is 23 hour admit. Informed Consent: Discussed plan with BEFORE SCHOOL BABYSITTER. Anesthesia plan and risks discussed with patient. [...] and Planning Preoperative Evaluation Record Evaluation type/location: [facility] Planned procedure site: [facility] PVT OR (Pod 1) Date: [...] year diagnosed: 2016. Pertinent negatives: CAD ; CO ; CABG ; valvular heart disease; valve [...] w/o CP or SOB. 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 Pre-procedure COVID19 testing performed at CPAP. Result pending. . Preoperative evaluation performed by [...] P[facility] [place] [facility] [place] [address] [place] [address], [id number] Current Outpatient Medications: ??? cholestyramine-aspartame 4 gram [...] is leaking at the insertion site -- QUALITY CONTROL ENGINEER Mikayla aware. He reports 1 BM this [...] Or today as ordered and pt left [id number] this am. IVF's infusing as ordered. Left PCN tube to gravity bag with bloody drainage noted inbag. Voiding into urinal. Left flank dry dressing C&D&I. Oxycodone prn for pain control. * Op Note - Hipolito Reyes MD - 04/14/2020 10:35 AM CDT Operative Report SURGEON: Hipolito Reyes MD SURGICAL TEAM: Gusset Stitcher: Jaimee Davis RN; Nazanin Doyle RN Tooling Specialist: RT Lissette Scrub Relief: ST Tiffanie Scrub: [...] PCNL. ANESTHESIA: General IMPLANTS: Left 8.5 Fr [place] loop nephrostomy tube OPERATIVE DETAILS Estimated Blood [...] advanced a motion wire down the 5 macanese catheter into the bladder, then removed the nephrostomytube and 5 macanese catheter. I advanced an 8-10 fr dilator [...] excluded calyx. We placed an 8.5 Fr [place] loop into the left lower pole under fluoro guidance, removed the sheath, held pressure to the back, and ultimately removed the motion wire. Nephrostogram through the [place] loop revealed good positioning of tubes and [...] Resident - Assisting Anesthesiologist: Luiza Robbins MD BEFORE SCHOOL BABYSITTER: Sandra Modi CRNA Gusset Stitcher: Jaimee Davis RN; Nazanin Doyle RN Tooling Specialist: RT Lissette Scrub Relief: ST Tiffanie Scrub: [...] Report SURGEON: Hipolito Reyes MD SURGICAL TEAM: Gusset Stitcher: Thea Jaimes RN; Nataliia Bone RN; Khadra [...] performed flexible cystoscopy and placed a 5 macanese left ureteral access catheter over a motion [...] stones with the rigid nephroscope, and the [place] tagUin 2.4 Fr basket to remove stones with [...] thestone material. We placed an 8.5 Fr [place] loop into the left lower pole under fluoro guidance, removed the sheath, held pressure to the back, and then passed a 5 fr catheter into the distal left ureter. Nephrostogram through the [place] loop revealed good positioning of tubes. The Tubes on the back were sutured using 2-0 silk, a dressing on the back was applied, and his 5 macanese catheter through the urethra was removed. He [...] Resident - Assisting No anesthesia staff entered. Gusset Stitcher: Thea Jaimes RN; Nataliia Bone RN; Khadra [...] HOUR IP Routine 04/14/2020 12:10 PM CDT CBC WITHOUT DIFFERENTIAL Timed 04/13/2020 9:04 PM [...] TECHNIQUE: ?? Prior to beginning the procedure, [place] Protocol was performed to confirm the patient's identity and the planned procedure. ??The fluoroscopy time has been recorded in the electronic medical record. consent was obtained. The patient was positioned on the fluoroscopy table and a drafter electrical image obtained. ??Contrast was injected through the patient's indwelling 8.5 [place] percutaneous nephrostomy catheter. Multiple fluoroscopic images were [...] procedure. TECHNIQUE: Prior to beginning the procedure, [place] Protocol was performed to confirm the patient's identity and the planned procedure. The fluoroscopy time has been recorded in the electronic medical record. consent was obtained. The patient was positioned on the fluoroscopy table and a drafter electrical image obtained. Contrast was injected through the patient's indwelling 8.5 [place] percutaneous nephrostomy catheter. Multiple fluoroscopic images were [...] signed by: Raulito Junior M.D. Diane Degroot QUALITY CONTROL ENGINEER IMG IR PROCEDURES Final Result * (ABNORMAL) CBC without differential (04/17/2020 11:04 PM CDT) WBC 8.8 3.8 - 9.9 K/cumm [facility] Hgb 11.0(L) 13.0 - 17.5 g/dL [facility] Hct 32.2(L) 38.9 - 50.3 % [facility] Plt 305 150 - 400 K/cumm [facility] MPV 9.5 9.1 - 12.3 fL [facility] RBC 3.68(L) 4.30 - 5.80 M/cumm [facility] MCV 87.5 81.3 - 96.4 fL [facility] MCH 29.9 27.1 - 33.3 pg [facility] MCHC 34.2 32.3 - 35.7 g/dL [facility] RDW CV 13.5 11.1 - 14.9 % [facility] RDW SD 43.6 35.7 - 48.1 fL [facility] NRBC abs 0.00 0.00 - 0.01 K/cumm [facility] Blood specimen (specimen) 04/17/2020 11:04 PM CDT 04/17/2020 11:25 PM CDT Hipolito Reyes MD LAB BLOOD ORDERABLE S Final Result [facility] Department [place] [address] * Basic metabolic panel (04/17/2020 11:04 PM CDT) Sodium 137 135 - 145 mmol/L [facility] Potassium, pl 3.9 3.3 - 4.9 mmol/L [facility] Chloride 103 97 - 110 mmol/L [facility] CO2 24 22 - 32 mmol/L [facility] Anion gap 10 2 - 15 mmol/L [facility] BUN 13 8 - 25 mg/dL [facility] Creatinine 1.10 0.80 - 1.30 mg/dL [facility] Glucose 126 70 - 199 mg/dL [facility] Comment: Interpretive Data Fasting glucose [...] Calcium 8.7 8.5 - 10.3 mg/dL [facility] Blood specimen (specimen) 04/17/2020 11:04 PM CDT 04/17/2020 11:23 PM CDT Hipolito Reyes MD LAB BLOOD ORDERABLE S Final Result [facility] Department [place] [address] * XR Chest 1 View (04/17/2020 1:57 [...] Report Final Report: No growth [facility] Blood specimen (specimen) (Antecubital, left) 04/17/2020 9:25 [...] organism identification may be performed using the [employer] Gram-Positive Blood Culture Assay. This assay detects microbial DNA in positive blood culture broth via hybridization of target DNA to capture oligonucleotides on a microarray. This assay has been cleared by the [place] Food and Drug Administration and its performance characteristics have been verified by the [facility]biology Laboratory. 5. ?For questions about this culture, contact the Microbiology Laboratory at [phone]. Interpretive data was last revised on 2020. Hipolito Reyes MD LAB MICROBIOLOGY - GENERAL ORDERABLES Final Result [facility] Department [place] [address] * Blood culture Blood Antecubital, right (04/17/2020 9:25 AM CDT) Report Final Report: No growth [facility] Blood specimen (specimen) (Antecubital, right) 04/17/2020 9:25 [...] organism identification may be performed using the [employer] Gram-Positive Blood Culture Assay. This assay detects microbial DNA in positive blood culture broth via hybridization of target DNA to capture oligonucleotides on a microarray. This assay has been cleared by the [place] Food and Drug Administration and its performance characteristics have been verified by the [facility]biology [facility]. 5. ?For questions about this culture, contact the Microbiology Laboratory at [phone]. Interpretive data was last revised on 2020. Hipolito Reyes MD LAB MICROBIOLOGY - GENERAL ORDERABLES Final Result [facility] Department [place] [address] * Urine culture Urine, nephrostomy tube (04/17/2020 9:12 AM CDT) Report Final Report: No growth [facility] Urine, nephrostomy tube 04/17/2020 9:12 AM CDT 04/17/2020 10:26 AM CDT Narrative [facility] - 04/18/2020 11:52 AM CDT Indications for Culture:->Urology patient Testing performed by [facility]biology Laboratory ([phone]) Hipolito Reyes MD LAB MICROBIOLOGY - GENERAL ORDERABLES Final Result Performing Organization Address [facility] de Phone Number [facility] Department [place] [address] * (ABNORMAL) CBC without differential (04/16/2020 9:57 PM CDT) [facility] WBC 9.7 3.8 - 9.9 K/cumm [facility] Hgb 11.3(L) 13.0 - 17.5 g/dL [facility] Hct 32.7(L) 38.9 - 50.3 % [facility] Plt 259 150 - 400 K/cumm [facility] MPV 9.7 9.1 - 12.3 fL [facility] RBC 3.75(L) 4.30 - 5.80 M/cumm [facility] MCV 87.2 81.3 - 96.4 fL [facility] MCH 30.1 27.1 - 33.3 pg [facility] MCHC 34.6 32.3 - 35.7 g/dL [facility] RDW CV 13.3 11.1 - 14.9 % [facility] RDW SD 42.4 35.7 - 48.1 fL [facility] NRBC abs 0.00 0.00 - 0.01 K/cumm [facility] Blood specimen (specimen) 04/16/2020 9:57 PM CDT 04/16/2020 10:24 PM CDT [facility] Libia Reyes MD LAB BLOOD ORDERABLE S Final Result Performing Organization Address [facility] Co de Phone Number [facility] Department [place] [address] * Basic metabolic panel (04/16/2020 9:57 PM CDT) [facility] Sodium 136 135 - 145 mmol/L [facility] Potassium, pl 3.6 3.3 - 4.9 mmol/L [facility] Chloride 103 97 - 110 mmol/L [facility] CO2 23 22 - 32 mmol/L [facility] Anion gap 10 2 - 15 mmol/L [facility] BUN 10 8 - 25 mg/dL [facility] Creatinine 1.17 0.80 - 1.30 mg/dL [facility] Glucose 123 70 - 199 mg/dL [facility] Comment: Interpretive Data Fasting glucose [...] 2017. Calcium 8.7 8.5 - 10.3 mg/dL [facility] Blood specimen (specimen) 04/16/2020 9:57 PM CDT 04/16/2020 10:24 PM CDT Hipolito Reyes MD LAB BLOOD ORDERABLE S Final Result [facility] Department [place] [address] * Blood culture Blood (04/15/2020 7:19 PM CDT) Report Final Report: No growth [facility] Blood specimen (specimen) 04/15/2020 7:19 PM CDT 04/15/2020 8:51 PM CDT Narrative [facility] - 04/20/2020 7:01 AM CDT [...] organism identification may be performed using the [employer] Gram-Positive Blood Culture Assay. This assay detects microbial DNA in positive blood culture broth via hybridization of target DNA to capture oligonucleotides on a microarray. This assay has been cleared by the [place] Food and Drug Administration and its performance characteristics have been verified by the [facility]biology Laboratory. 5. ?For questions about this culture, contact the Microbiology Laboratory at [phone]. Interpretive data was last revised on 2020. Hipolito Reyes MD LAB MICROBIOLOGY - GENERAL ORDERABLES Final Result [facility] Department [place] [address] * (ABNORMAL) Basic metabolic panel (04/15/2020 7:00 PM CDT) Sodium 135 135 - 145 mmol/L [facility] Potassium, pl 3.7 3.3 - 4.9 mmol/L [facility] Chloride 106 97 - 110 mmol/L [facility] CO2 21(L) 22 - 32 mmol/L [facility] Anion gap 8 2 - 15 mmol/L [facility] BUN 13 8 - 25 mg/dL [facility] Creatinine 1.23 0.80 - 1.30 mg/dL [facility] Glucose 149 70 - 199 mg/dL [facility] Comment: Interpretive Data Fasting glucose [...] 2017. Calcium 8.6 8.5 - 10.3 mg/dL [facility] Blood specimen (specimen) 04/15/2020 7:00 PM CDT 04/15/2020 7:43 PM CDT Hipolito Reyes MD LAB BLOOD ORDERABLE S Final Result Performing Organization Address City/[facility]/ZIP Co de Phone Number [facility] Department [place] [address] * (ABNORMAL) CBC without differential (04/15/2020 7:00 PM CDT) WBC 10.6(H) 3.8 - 9.9 K/cumm [facility] Hgb 11.3(L) 13.0 - 17.5 g/dL [facility] Hct 33.0(L) 38.9 - 50.3 % [facility] Plt 254 150 - 400 K/cumm [facility] MPV 9.8 9.1 - 12.3 fL [facility] RBC 3.77(L) 4.30 - 5.80 M/cumm [facility] MCV 87.5 81.3 - 96.4 fL [facility] MCH 30.0 27.1 - 33.3 pg [facility] MCHC 34.2 32.3 - 35.7 g/dL [facility] RDW CV 13.3 11.1 - 14.9 % [facility] RDW SD 43.0 35.7 - 48.1 fL [facility] NRBC abs 0.00 0.00 - 0.01 K/cumm [facility] Blood specimen (specimen) 04/15/2020 7:00 PM CDT 04/15/2020 7:44 PM CDT Hipolito Reyes MD LAB BLOOD ORDERABLE S Final Result Performing Organization Address City/[facility]/ZIP Co de Phone Number [facility] Department [place] [address] * Urine culture Urine, nephrostomy tube (04/15/2020 7:00 PM CDT) Report Final Report: No growth [facility] Urine, nephrostomy tube 04/15/2020 7:00 PM CDT 04/15/2020 8:40 PM CDT Narrative [facility] - 04/16/2020 9:04 PM CDT Indications for Culture:->Urology patient Testing performed by [facility]biology Laboratory ([phone]) Hipolito Reyes MD LAB MICROBIOLOGY - GENERAL ORDERABLES Final Result [facility] [place] [address] * Blood culture Blood (04/15/2020 7:00 PM [...] performance characteristics have been verified by the [facility]biology [facility]. 5. ?For questions about this culture, contact the Microbiology Laboratory at [phone]. Interpretive data was last revised on 2020. Hipolito Reyes MD LAB MICROBIOLOGY - GENERAL ORDERABLES Final Result Performing Organization Address City/[facility] [place] [address] * Phosphorus (04/14/2020 11:59 PM CDT) Phosphorus, pl 2.7 2.3 - 4.5 mg/dL [facility] Blood specimen (specimen) 04/14/2020 11:59 PM CDT 04/15/2020 12:33 AM CDT Hipolito Reyes MD LAB BLOOD ORDERABLE S Final Result Performing Organization Address [facility] de Phone [place] [address] * Magnesium (04/14/2020 11:59 PM CDT) Magnesium 1.6 1.4 - 2.5 mg/dL [facility] Blood specimen (specimen) 04/14/2020 11:59 PM CDT 04/15/2020 12:33 AM CDT Hipolito Reyes MD LAB BLOOD ORDERABLE S Final Result Performing Organization Address [facility] Co de Phone [place] [address] * (ABNORMAL) Basic metabolic panel (04/14/2020 11:59 PM CDT) Pathologist [facility] Sodium 135 135 - 145 mmol/L [facility] Potassium, pl 3.9 3.3 - 4.9 mmol/L [facility] Chloride 104 97 - 110 mmol/L [facility] CO2 23 22 - 32 mmol/L [facility] Anion gap 8 2 - 15 mmol/L [facility] BUN 16 8 - 25 mg/dL [facility] Creatinine 1.32(H) 0.80 - 1.30 mg/dL [facility] Glucose 129 70 - 199 mg/dL [facility] Comment: Interpretive Data Fasting glucose [...] 2017. Calcium 8.3(L) 8.5 - 10.3 mg/dL [facility] Blood specimen (specimen) 04/14/2020 11:59 PM CDT 04/15/2020 12:33 AM CDT Hipolito Reyes MD LAB BLOOD ORDERABLE S Final Result [facility] Department [place] [address] * (ABNORMAL) CBC without differential (04/14/2020 11:59 PM CDT) [facility] WBC 9.3 3.8 - 9.9 K/cumm [facility] Hgb 11.5(L) 13.0 - 17.5 g/dL [facility] Hct 34.2(L) 38.9 - 50.3 % [facility] Plt 242 150 - 400 K/cumm [facility] MPV 9.8 9.1 - 12.3 fL [facility] RBC 3.81(L) 4.30 - 5.80 M/cumm [facility] MCV 89.8 81.3 - 96.4 fL [facility] MCH 30.2 27.1 - 33.3 pg [facility] MCHC 33.6 32.3 - 35.7 g/dL [facility] RDW CV 13.8 11.1 - 14.9 % [facility] RDW SD 45.2 35.7 - 48.1 fL [facility] NRBC abs 0.00 0.00 - 0.01 K/cumm [facility] Blood specimen (specimen) 04/14/2020 11:59 PM CDT 04/15/2020 12:47 AM CDT Hipolito Reyes MD LAB BLOOD ORDERABLE S Final Result Performing Organization Address [facility]/ZIP Co de Phone Number [facility] Department [place] [address] * [place] Fluoroscopy < 1 Hour (04/14/2020 12:10 PM CDT) Narrative [facility] - 04/14/2020 12:49 PM CDT The images from this study are not interpreted by Radiology. ??Please refer to the physician's procedure / OR operative note. Hipolito Reyes MD IMG FLUOROSCOPY PRO CEDURES Final Result [facility] * (ABNORMAL) CBC without differential (04/13/2020 9:04 PM CDT) WBC 8.4 3.8 - 9.9 K/cumm [facility] Hgb 12.6(L) 13.0 - 17.5 g/dL [facility] Hct 37.9(L) 38.9 - 50.3 % [facility] Plt 282 150 - 400 K/cumm [facility] MPV 9.7 9.1 - 12.3 fL [facility] RBC 4.27(L) 4.30 - 5.80 M/cumm [facility] MCV 88.8 81.3 - 96.4 fL [facility] MCH 29.5 27.1 - 33.3 pg [facility] MCHC 33.2 32.3 - 35.7 g/dL [facility] RDW CV 13.9 11.1 - 14.9 % [facility] RDW SD 45.1 35.7 - 48.1 fL [facility] NRBC abs 0.00 0.00 - 0.01 K/cumm [facility] Blood specimen (specimen) 04/13/2020 9:04 PM CDT 04/13/2020 10:08 PM CDT us Diane Degroot NP LAB BLOOD ORDERABLES Final Res ult [facility] Department [place] [address] * Basic metabolic panel (04/13/2020 9:04 PM CDT) Sodium 137 135 - 145 mmol/L [facility] Potassium, pl 3.9 3.3 - 4.9 mmol/L [facility] Chloride 105 97 - 110 mmol/L [facility] CO2 23 22 - 32 mmol/L [facility] Anion gap 9 2 - 15 mmol/L [facility] BUN 23 8 - 25 mg/dL [facility] Creatinine 1.30 0.80 - 1.30 mg/dL [facility] Glucose 116 70 - 199 mg/dL [facility] Comment: Interpretive Data Fasting glucose [...] 2017. Calcium 8.9 8.5 - 10.3 mg/dL [facility] Blood specimen (specimen) 04/13/2020 9:04 PM CDT 04/13/2020 10:10 PM CDT us Diane Degroot NP LAB BLOOD ORDERABLES Final Res ult [facility] Department [place] [address] * CT KUB Stone WO Contrast (04/13/2020 [...] CDT) WBC 9.5 3.8 - 9.9 K/cumm [facility] Hgb 13.1 13.0 - 17.5 g/dL [facility] Hct 39.7 38.9 - 50.3 % [facility] Plt 307 150 - 400 K/cumm [facility] MPV 9.5 9.1 - 12.3 fL [facility] RBC 4.48 4.30 - 5.80 M/cumm [facility] MCV 88.6 81.3 - 96.4 fL [facility] MCH 29.2 27.1 - 33.3 pg [facility] MCHC 33.0 32.3 - 35.7 g/dL [facility] RDW CV 13.5 11.1 - 14.9 % [facility] RDW SD 44.2 35.7 - 48.1 fL [facility] NRBC abs 0.00 0.00 - 0.01 K/cumm [facility] Blood specimen (specimen) 04/13/2020 4:32 AM CDT 04/13/2020 5:13 AM CDT us Hipolito Reyes MD LAB BLOOD ORDERABLE S Final Result [facility] Department [place] [address] * (ABNORMAL) Basic metabolic panel (04/13/2020 4:32 AM CDT) Pathologist [facility] Sodium 137 135 - 145 mmol/L [facility] Potassium, pl 4.3 3.3 - 4.9 mmol/L [facility] Chloride 97 97 - 110 mmol/L [facility] CO2 24 22 - 32 mmol/L [facility] Anion gap 16(H) 2 - 15 mmol/L [facility] BUN 23 8 - 25 mg/dL [facility] Creatinine 1.20 0.80 - 1.30 mg/dL [facility] Glucose 131 70 - 199 mg/dL [facility] Comment: Interpretive Data Fasting glucose [...] 2017. Calcium 8.9 8.5 - 10.3 mg/dL [facility] Blood specimen (specimen) 04/13/2020 4:32 AM CDT 04/13/2020 5:13 AM CDT Hipolito Reyes MD LAB BLOOD ORDERABLE S Final Result [facility] Department [place] [address] * XR Chest 1 View (Portable) (04/12/2020 [...] CDT) Report Final Report: No growth [facility] Stone (Kidney) 04/12/2020 2: 30 PM CDT 04/13/2020 8:06 AM CDT Narrative [facility] - 04/15/2020 9:22 AM CDT Left Kidney Stone for Routine Culture Testing performed by [facility] Microbiology Laboratory ([phone]) Specimens submitted from normally sterile body sites [...] MICROBIOLOGY - GENERAL ORDERABLES Final Result [facility] Department [place] [address] * Surgical pathology (04/12/2020 2:27 PM CDT) Tissue (Calculus/calculi /stone, gross and Chemical Analysis) 04/12/2020 2:27 PM CDT Narrative PATHOLOGY [facility] - 04/13/2020 12:05 PM CDT EPIC results best viewed via link to PDF [facility] Odilia Juarez [facility] [place] [address] SURGICAL PATHOLOGY REPORT FINAL WITH ADDENDUM Patient Name: ?? ZOEY JOSEPH Gender: ??M : ??1970 (Age: 49) Address: ??[address] [place] [address] ??[id number] Hospital #: ??[id number] Taken:04/12/2020 Received:04/12/2020 Reported: 04/13/2020 Patient Type: [facility] Inpatient ?? Service: Surgery Location: [place] [address] Physician(s): ??MD Jayla Fuentes M.D. Diagnosis: Left [...] submitted for chemical analysis. PA(s): ESTRELLA Beltran ([facility]) By this signature, I attest that the above diagnosis is based upon my personal examination of the slides(and/or other material). Addenda/Procedures Addendum Ordered: 04/21/2020 Status: Signed Out Addendum Complete: 04/21/2020 By: aMrvel Jeronimo M.D. Addendum Signed Out: 04/21/2020 ?? Addendum Diagnosis A digital scan of the original reference lab report will begin on page two of this addendum. ?? By this signature, I attest that the above diagnosis is based upon my personal examination of the slides(and/or other material indicated in the diagnosis). ?? Marvel Jeronimo M.D. ??Report Electronically Reviewed and Signed Out By ??Marevl Jeronimo M.D. ??04/21/2020 13:05:07 ? The performance characteristics of some immunohistochemical stains, fluorescence in-situ hybridization tests and immunophenotyping by flow cytometry cited in this report (if any) were determined by the Surgical Pathology Department at [facility] as part of an ongoing quality control engineer program and in compliance with federally mandated [...] determined by the Surgical Pathology Department of [facility]. ??It has not been cleared or approved by the U. S. Food and Drug Administration. IMAGES AND SCANNED DOCUMENTS, IF INCLUDED, ONLY VIEWABLE IN PDF VERSION OF REPORT Hipolito Reyes MD LAB PATHOLOGY ORDER DONELL Final Result Performing Organization Address City/[facility]/ZIP Co de Phone Number PATHOLOGY [facility] 3rd Floor [place], [place] [phone] * Type and screen (04/12/2020 11:10 AM CDT) Juan, indirect Negative [facility] ABO Rh O Positive [facility] Comment:28 - Hemolyzed speci men Blood specimen (specimen) 04/12/2020 11:10 AM CDT 04/12/2020 11:18 AM CDT Narrative [facility] - 04/12/2020 12:37 PM CDT Has the patient had Daratumumab or Isatuximab in the past 6 months?->Unknown Hipolito Reyes MD LAB BLOOD BANK TEST ORDERABLES Final Result Performing Organization Address [facility] Co de Phone Number [facility] Department [place] [address] documented in this encounter Visit Diagnoses Diagnosis [...] (OPTIRAY 320) injection As needed, Starting on Sat04/12/20 at 1534, Intra-Op Given 04/12/2020 3:34 PM CDT 75 mL ondansetron (ZOFRAN) injection 4 mg 4 [...] 0.9 % irrigation As needed, Starting on Sat04/12/20 at 1408, Intra-Op Given 04/12/2020 3:33 PM CDT 3,000 mL Surgical Site Given 04/12/2020 2:52 PM CDT 3,000 mL Gu rgical Site Given 04/12/2020 2:36 PM CDT 3,000 mL Gu rgical Site sodium chloride 0.9% flush 0.5-20 mL [...] Charmaine Evans, RN)0917 (Given - Provider: Anisha Miller, AMIE)1520 (Given - Provider: Anisha Miller, AMIE)2110 (Not Given - Provider: Amna Appiah RN - Reason: Other)2259 (Given - Provider: Amna Appiah RN) 0454 (Not Given - Provider: Amna Appiah RN - Reason: Patient/family refused)1109 (Given - Provider: Anisha Miller RN) cefTRIAXone (ROCEPHIN) 1,000 mg/10 mL in sterile [...] Sleep-Onset Insomnia 2108 (Given - Provider: Charmaine Evans RN) 2108 (Given - Provider: Amna Appiah RN) sodium chloride 0.9% flush 0.5-20 mL 0.5-20 mL, intra-catheter, Every 8 hours scheduled, First dose on Sat04/12/20 at 2200, Flush volume based on line type and size. , Indications: Flushing 0522 (Not Given - Provider: Melany Collado RN - Reason: IV Infusing)1355 (Given - Provider: Ernestine Graham, AMIE)2145 (Given - Provider: Charmaine Evans RN) 0623 (Given - Provider: Charmaine Evans RN)1520 (Given - Provider: Anisha Miller, AMIE)2110 (Given - Provider: Amna Appiah RN) 0454 (Given - Provider: Amna Appiah RN)1301 (Not Given - Provider: Anisha Miller, AMIE - Reason: Loss of IV access) PRN Medication Order 04/16/2020 04/17/2020 04/18/2020 docusate sodium (COLACE) capsule 100 mg 100 mg, oral, 2 times daily PRN, constipation, Starting on 04/16/20 at 0808, Indications: constipation 2118 (Given - [...] Sat04/12/20 at 1849, Indications: nausea and vomiting oxyCODONE (ROXICODONE) tablet 5 mg 5 mg, oral, Every 4 hours PRN, 1st line for pain, Starting on Sat04/12/20 at 1849, May repeat in 1 hour if pain is uncontrolled or increasing. Max 2 doses within 1 dosing interval., Indications: Pain 1417 (Given - Provider: Ernestine Graham RN)211 (Given - Provider: Charmaine Evans RN) 0228 (Given - Provider: Charmaine Evans RN)0631 (Given - Provider: Charmaine Evans RN)1714 (Given - Provider: Anisha Miller, AMIE)2108 (Given - Provider: Amna Appiah, AMIE) sodium [...] (DILAUDID) injection 0.4 mg 2 04/14/2020 04/12/2020 ioversoL (OPTIRAY 320) injection 1 04/14/20 20 Lactated Ringer's (LR) infusion 2 0 04/12/2020 naloxone (NARCAN) 0.4 mg/mL injection 0.04-0.4 mg 2 04/14/2020 04/12/2020 ondansetron (ZOFRAN) injection 4 mg 3 04/1404/12/2020 sodium chloride 0.9 % irrigation 1 04/14/20 20 sodium chloride 0.9% flush 0.5-20 mL 5 [...] HYDROmorphone (DILAUDID) injection 0.2 mg 1 04/12/2020 ketorolac (TORADOL) 15 mg/mL injection 15 mg 1 04/12/2020 ondansetron ODT (ZOFRAN-ODT) disintegrating tablet 4 mg 1 04/12/2020 oxyCODONE (ROXICODONE) tablet 5 mg 2 2019 Nursing Count Last Ordered Date First Orde red Date MEANS CATHETER - DISCONTINUE 1 04/13/2020 documented in this encounter Care Teams High Pressure Cleaner Relationship Specialty Start Date End Date Jayla Phoenix MD [address] [place] [address] PCP - General 08/07/17 documented as of this encounter
--- OUTSIDE RECORDS SUMMARY | 2024-08-23 08:07 | XMS_ITS | Encounter Summary ---
Author Organization [facility] Address [address] [place] [address] Phone Care Team Providers Care Building Maintenance Technician Name Role Phone Jayla Phoenix MD Primary Care Provider [phone] Encounter Details Date Type Department Care Team (Late st Contact Info) Description 04/04/2020 Telephone [facility] [address] [facility] [place] [facility] 8th [place] [address] [place] [address] Corbin Duque MD [address] [place] [address] Social History Tobacco Use Types Packs/Day Years Used Date Smoking Tobacco: Former Cigarettes 1.5 9 1 994 - 2003 Smokeless Tobacco: Never Alcohol Use Standard Drinks/Week Comments Not Currently 0 (1 standard drink = 0.6 oz pur e alcohol) Sex and Gender Information Value Date Recorded Sex Assigned at Not on file 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 Asking for alternative or what to do since denied. Guessing they are an infusion center that does their own auth. [phone] Thanks, Melany Reyes Called [place] to see what their reasoning was and if they offered alternatives. He was already approved for the injections which is usually the cole. I left her a message and will try to call back tomorrow to come up with our next steps. documented in this encounter Plan of Treatment Not on file documented as of this encounter Visit Diagnoses Not on filedocumented in this encounter Care Teams Building Maintenance Technician Relationship Specialty Start Date End Date Jayla Phoenix MD [address] [place] [address] PCP - General 08/07/17 documented as of this encounter
--- OUTSIDE RECORDS SUMMARY | 2024-08-23 08:07 | XMS_ITS | Encounter Summary ---
Author Organization [facility] Healthcare Address [address] [place] [address] Care Team Providers Care Cryptologic Technician Operator/Analyst Name Role Phone Jayla Phoenix MD Primary Care Provider Encounter Details Date Type Department Care Team (Late st Contact Info) Description 04/12/2020 12:25 PM CDT Anesthesia Event [facility] Operating Room [address] [place] [address] Ramakrishna Waller MD [address] [facility] [address] [place] [address] Laurie Trinh, [employer] [address] [facility] [id number] [place] [address] Anesthesia Record Procedure Summary Procedure Name Responsible Anesthesiologist Anesthesia Start Time Anesthesia Stop Time PERCUTANEOUS NEPHROLITHOTOMY (Left: Flank) Ramakrishna Waller MD 04/12/20 1225 04/12/20 1606 Events Date Time Event Comment 04/12/2020 1046 In Preop 1225 An Start 1229 In Room 1231 An Start Data 1239 An Induction The patient was reevaluated immediately before moderate or deep sedation use and before anesthesia induction. 1246 An Intubation 1250 Anesthesia Ready 1256 Proc Start 1308 Quick Note Patient flipped prone 1315 Quick Note Eyes and ears f ree of pressure. Axilla free bilaterally. C spine level without cervical hyperextension. Positioning confirmed with surgeon. 1534 Proc Fin 1542 Quick Note Patient flipped back to supine 1553 An Extubation 1555 an stop data 1558 Out of Room 1606 Handoff to RN I completed my handoff [...] disposition at the time of handoff: PACU 1606 An Stop Meds Name Total midazolam PF 2 mg lidocaine 1 % PF 100 mg fentaNYL 250 mcg propofol 280 mg rocuronium 80 mg HYDROmorphone 2 mg/mL 0.5 mg glycopyrrolate 0.6 mg neostigmine injection 1 mg/mL 4 mg ceFAZolin (ANCEF) 2,000 mg/20 mL in ster ile water (premix) 2,000 mg 2,000 mg dexamethasone 4 mg/ml 4 mg ketamine 10 mg/mL 20 mg LR 1,000 mL * Agents Name O2% N2O O2 Air Sevoflurane Inspired Sevoflurane * Blood No blood administrations on file. Lines, Drains, and Airways Type Details Placement Removal Ureteral Drain/Stent 04/12/20; 1500; Lef t ureter; 5 Fr.; No 04/12/20 1500 by Nataliia Bone RN RETIRED Surgical Site 02/16/19; 1340; Ne ck; 04/13/20 (not present on admission); 1250 02/16/19 1340 by Laura Loya RN 04/13/20 1250 by Brianne Cabral, AMIE Peripheral IV Placement Date: 04/12/20; Placement Time: 1113; Catheter Size: 18 G; Orientation: Left; Location: Hand; Site Prep: Chlorhexidine; Removal Date: 04/15/20; Removal Time: 1330; Removal Reason: Per order 04/12/20 1113 by Melany Rios, AMIE 04/15/20 1330 by Magaly Garcia, AMIE ETT Placement Date: 04/12/20; Placement Time: 1258 (created via procedure documentation); Mask Ventilation: 1; Technique: Video laryngoscopy; Type: ETT - single; Single Lumen Tube Size: 7.5 mm; Cuffed: Yes; Laryngoscope: Juliana; Blade Size: 4; Location: Oral; Grade View: Grade I; Insertion Attempts: 1; Placement Verification: Auscultation, Capnometry; Removal Date: 04/12/20; Removal Time: 1553 04/12/20 1258 by Keith Parker MD 04/12/20 1553 by Keith Parker MD Urethral Catheter Placement Date: 04/12/20; Placement Time: 1300; Inserted by: Jhon Reyes MD ; Type: Non-latex; Size: 16 Fr.; Balloon Size: 10 mL; Urine Returned: Yes; Removal Date: 04/13/20; Removal Time: 1105; Removal Reason: Per order 04/12/20 1300 by Khadra Stoll RN 04/13/20 1105 by Brianne Cabral, AMIE RETIRED Surgical Site 04/12/20; 1416; Le ft; Flank; 04/15/20; 0600 04/12/20 1416 by Khadra Stoll RN 04/15/20 0600 by Magaly Garcia, AMIE Nephrostomy 04/12/20; 1527; Left ; (8.5); Yes; Disontinued in OR 04/12/20 1527 by Nataliia Bone RN 04/14/20 1042 by Nazanin Doyle RNFA documented in this encounter Social History Tobacco Use Types Packs/Day Years Used Date Smoking Tobacco: Former Cigarettes 1.5 9 1 994 - 2003 Smokeless Tobacco: Never Alcohol Use Standard Drinks/Week Comments Not Currently 0 (1 standard drink = 0.6 oz pur e alcohol) Sex and Gender Information Value Date Recorded Sex Assigned at Not on file 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 Gender Identity Male 02/04/2019 10:52 AM CDT Sexual Orientation Straight 02/04/2019 10 :52 AM CDT documented as of this encounter OR Notes * Anesthesia Postprocedure Evaluation - Giovani Velásquez MD - 04/12/2020 5:27 PM CDT Patient: Kristian Vasques Procedure Summary Date: 04/12/20 Room / Location: [facility] OR POD 1 ROOM 324 / [facility] OR POD 1 Anesthesia Start: 1225 Anesthesia Stop: 1606 Procedure: PERCUTANEOUS NEPHROLITHOTOMY (Left Flank) Diagnosis: Bilateral nephrolithiasis (Bilateral nephrolithiasis [N20.0]) Surgeon: Hipolito Reyes MD Responsible Provider: Anesthesia Type: general ASA Status: 3 Anesthesia Type: general Last vitals BP 122/72 Pulse 73 Temp 36.1 ??C (97 ??F) (Temporal) Resp 18 SpO2 95% Anesthesia Post Evaluation Patient location during evaluation: PACU Patient participation: complete - patient participated Level of consciousness: fully awake Pain score: 0 Pain management: satisfactory to patient Airway patency: patent Evidence of recall: no Anesthetic complications: no Cardiovascular status: hemodynamically stable Respiratory status: room air Hydration status: euvolemic Pt is: normothermic Nausea/Vomiting status: none Comments: Patient is conscious, oriented maintaining vitals can be shifted from PACU. * Anesthesia Procedure Notes - Keith Parker MD - 04/12/2020 12:57 PM CDT Associated Order(s): Airway Airway Patient location: OR Indications for airway management: anesthesia Difficult airway: no Staff: Supervising provider: Ramakrishna Waller MD Placed by: Resident: Keith Parker MD Emergent airway documentation: Risks and benefits discussed: yes Consent obtained: yes Consent given by: patient Airway prep: Preoxygenated: yes Patient position: sniffing MILS maintained throughout: yes Mask difficulty assessment: 1 - vent by mask Spontaneous ventilation during airway: absent Sedation level during airway: GA Final airway details: Final airway type: endotracheal airway Tube type: ETT ETT size: 7.5 mm Cuffed: yes Technique used for successful ETT placement: video laryngoscopy Devices/Methods used in placement: intubating stylet Insertion site: oral Blade type: Juliana Video blade type: CMAC Blade size: 4 Cormack-Lehane (direct): grade I - full view of glottis Cuff inflated with: air ETT to lips: 22 cm Placement verified by: auscultation and CO2 detection Airway secured with: tegaderm Number of attempts: 1 Planned trial extubation: yes * Anesthesia Preprocedure Evaluation - Ramakrishna Waller MD - 04/08/2020 8:03 AM CDT Images from the original note were not included. [facility] for Preoperative Assessment and Planning Preoperative Evaluation Record Evaluation type/location: CPAP [facility] Planned procedure site: [facility] PVT OR (Pod 1) Date: 04/08/20 Anesthesia Evaluation Kristian Vasques is a 49 y.o. male Procedure(s): PERCUTANEOUS NEPHROLITHOTOMY PLACEMENT STENT - URETERAL URETEROSCOPY LITHOTRIPSY - LASER Pre-Op Diagnosis Codes: * Bilateral nephrolithiasis [N20.0] HISTORY HPI Kristian Vasques is a 48 y.o. male who is [...] year diagnosed: 2016. Pertinent negatives: CAD ; VT ; CABG ; valvular heart disease; valve [...] w/o CP or SOB. 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 male who is [...] 2018 hardware removal 2018 ??? BOWEL RESECTION 2008 ??? KIDNEY STONE [...] PLEASE DELIVER DIRECTLY TO THE [facility]AC[facility] OF [facility] ATTN: PHARMACY, [address] [place] [address], [id number] Current Outpatient Medications: ??? cholestyramine-aspartame 4 gram [...] and allergies reviewed. Attestation: This PAT evaluation 04/12/2020. Airway Exam: Mallampati: I Cervical ROM: FROM TM distance: 3 Jaw ROM: full Cardiovascular Exam: Rate: regular Rhythm: regular Pulmonary Exam: LCTA, bilat Dental Exam: (Front left cap, loose) Additional comments: Full range of neck motion, mild RUE parasthesias Anesthesia Plan ASA 3 My patient is approved for the Anesthesia Controlled Medication protocol when under care of a SUPERVISOR HARDBOARD Planned anesthesia: General Team communication plan: oral ET tube Induction: Induction: intravenous. Postoperative Plan: Postoperative administration opioids intended. Patient's planned disposition post procedure is Floor. Informed Consent: Discussed plan with resident. Anesthesia plan and risks discussed with patient. Plan and Consent Comments: Discussed with patient increased risk of both dental as well as positioning related nerve injury. Consent and Attending signature: I and/or my [...] Procedure Name Priority Date/Time Associated Diagnosis Comments ANESTHESIA INTUBATION Routine 04/12/2020 12:57 PM CDT documented in this encounter Results * Airway (04/12/2020 12:57 PM CDT) Narrative Keith Parker MD - 04/12/2020 12:57 PM CDT Keith Parker MD ? 04/12/2020 ??1:28 PM Airway Patient location: OR Indications for airway management: anesthesia Difficult airway: no Staff: Supervising provider: Ramakrishna Waller MD Placed by: Resident: Keith Parker MD Emergent airway documentation: Risks and benefits discussed: yes Consent obtained: yes Consent given by: patient Airway prep: Preoxygenated: yes Patient position: sniffing MILS maintained throughout: yes Mask difficulty assessment: 1 - vent by mask Spontaneous ventilation during airway: absent Sedation level during airway: GA Final airway details: Final airway type: endotracheal airway Tube type: ETT ETT size: 7.5 mm Cuffed: yes Technique used for successful ETT placement: video laryngoscopy Devices/Methods used in placement: intubating stylet Insertion site: oral Blade type: Juliana Video blade type: CMAC Blade size: 4 Cormack-Lehane (direct): grade I - full view of glottis Cuff inflated with: air ETT to lips: 22 cm Placement verified by: auscultation and CO2 detection Airway secured with: tegaderm Number of attempts: 1 Planned trial extubation: yes us Keith Parker MD ANESTHESIA ORDERABLES Edited Res ult - Final documented in this encounter Visit Diagnoses Not on filedocumented in this encounter Administered Medications Inactive Administered Medications - up to 3 most recent administrations Medication Order MAR Action Action Date Dose Rate Site ceFAZolin (ANCEF) 2,000 mg/20 mL in sterile water (premix) 2,000 mg 2,000 mg, intravenous, at 400 mL/hr, Administer over 3 Minutes, Once, On Sat04/12/20 at 1130, For 1 dose, Pre-Op, Administer within 60 minutes of incision., Indications: Prophylaxis, SurgicalIndications:Prophylaxis , Surgical Given 04/12/2020 12:50 PM CDT 2,000 mg dexAMETHasone (DECADRON) 4 mg/mL injection Administer over 2 Minutes, As needed, Starting on Sat04/12/20 at 1301, Anesthesia Intra-op Given 04/12/2020 1:01 PM CDT 4 mg fentaNYL (SUBLIMAZE) preservative free injection intravenous, As needed, Starting on Sat04/12/20 at 1238, Anesthesia Intra-op Given 04/12/2020 2:45 PM CDT 50 mcg Given 04/12/2020 2:05 PM CDT 50 mcg Given 04/12/2020 12:38 PM CDT 150 mcg glycopyrrolate (ROBINUL) injection intravenous, Administer over 1 Minutes, As needed, Starting on Sat04/12/20 at 1534, Anesthesia Intra-op Given 04/12/2020 3:34 PM CDT 0.6 mg HYDROmorphone (DILAUDID) injection intravenous, Administer over 2 Minutes, As needed, Starting on Sat04/12/20 at 1534, Anesthesia Intra-op Given 04/12/2020 3:34 PM CDT 0.5 mg ketamine (KETALAR) injection As needed, Starting on Sat04/12/20 at 1255, Anesthesia Intra-op Given 04/12/2020 12:55 PM CDT 20 mg Lactated Ringer's (LR) infusion Continuous PRN, Starting on Sat04/12/20 at 1231, Anesthesia Intra-op New Bag 04/12/2020 3:24 PM CDT New Bag 04/12/2020 12:31 PM CDT 100 mL/hr lidocaine PF (XYLOCAINE) 10 mg/mL (1 %) preservative free injection As needed, Starting on Sat04/12/20 at 1259, Anesthesia Intra-op Given 04/12/2020 12:39 PM CDT 100 mg midazolam (VERSED) preservative free injection intravenous, Administer over 2 Minutes, As needed, Starting on Sat04/12/20 at 1226, Anesthesia Intra-op Given 04/12/2020 12:36 PM CDT 1 mg Given 04/12/2020 12:26 PM CDT 1 mg neostigmine (PROSTIGMIN) injection intravenous, Administer over 3 Minutes, As needed, Starting on Sat04/12/20 at 1534, Anesthesia Intra-op Given 04/12/2020 3:34 PM CDT 4 mg propofoL (DIPRIVAN) IV intravenous, As needed, Starting on Sat04/12/20 at 1239, Anesthesia Intra-op Given 04/12/2020 3:38 PM CDT 50 mg Given 04/12/2020 3:34 PM CDT 30 mg Given 04/12/2020 12:39 PM CDT 200 mg rocuronium (ZEMURON) injection intravenous, As needed, Starting on Sat04/12/20 at 1242, Anesthesia Intra-op Given 04/12/2020 2:46 PM CDT 10 mg Given 04/12/2020 1:56 PM CDT 10 mg Given 04/12/2020 1:38 PM CDT 10 mg documented in this encounter Care Teams Cryptologic Technician Operator/Analyst Relationship Specialty Start Date End Date Jayla Phoenix MD [address] [place] [address] PCP - General 08/07/17 documented as of this encounter
--- OUTSIDE RECORDS SUMMARY | 2024-08-23 08:07 | XMS_ITS | Encounter Summary ---
Author Organization [facility] Healthcare Address [address] [place] [address] Care Team Providers Care Coal Shooter Name Role Phone Jayla Phoenix MD Primary Care Provider + [phone] Reason for Referral * Diagnostic Imaging (Routine) - Closed Specialty Diagnoses / Procedures Referred By Elina senior Referred To Contact Radiology Diagnoses Nephrolithiasis Procedures CT Renal Stone Jr Verde MD Phone: tel: fax: [place] [phone] [address] [phone] Referral ID Status Reason Start Date Expiration Date Visits Re quested Visits Authorized [id number] Closed 03/24/2020 04/22/2020 1 1 Reason for Visit * Diagnostic Imaging (Routine) - Closed Specialty Diagnoses / Procedures Referred By Elina senior Referred To Contact Radiology Diagnoses Nephrolithiasis Procedures CT Renal Stone rJ Verde MD Phone: tel: fax: [place] [phone] [address] [phone] Referral ID Status Reason Start Date Expiration Date Visits Re quested Visits Authorized [id number] Closed 03/24/2020 04/22/2020 1 1 Encounter Details Date Type Department Care Team (Latest Contact Info) Description 03/30/2020 11:24 AM CDT - 03/30/2020 11:59 PM CDT Hospital Encounter [facility] [id number] [address] [phone] Jr Verde MD [address] [place] [address] Nephrolithiasis Discharge Disposition: Discharge to home or [...] on file 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 Gender Identity Male 02/04/2019 10:52 AM CDT Sexual Orientation Straight 02/04/2019 10 :52 AM CDT documented as of this encounter Medications at Time of Discharge cyanocobalamin, vitamin B-12, 5,000 mcg tablet, sublingualIndica tions:Prevention of Vitamin B12 Deficiency [address] 1 tablet under the tongue oil and gas principal before breakfast losartan-hydroch lorothiazide (HYZAAR) 100-25 mg per tabletIndication s:hypertension Take 1 tablet by mouth nightly 02/23/2019 multivitamin capsuleIndicatio ns:Vitamin Deficiency Prevention Take 1 capsule by mouth oil and gas principal before breakfast cholestyramine-a spartame 4 gram powderIndication [...] Procedure Name Priority Date/Time Associated Diagnosis Comments CT RENAL STONE Schedule ARCENIO, Read ARCENIO (Appt Today, Awaiting Results) 03/30/2020 11:32 AM CDT Nephrolithiasis documented in this encounter Results * CT Renal Stone (03/30/2020 11:32 AM CDT) Anatomical Region Laterality Modality Abdomen N/A Computed Tomogra phy 03/30/2020 11:4 5 AM CDT Impressions 03/30/2020 11:46 AM CDT 1. ??Bilateral renal calculi, the largest measuring 1.4 cm in the collecting system of the left kidney. ?? 2. ??Mild left hydronephrosis Dictated by: Adalgisa Daugherty M.D. The radiology attending physician has personally reviewed this study, and had reviewed and/or edited this written report and agrees with it. Electronically signed by: Brandon Cabezas M.D. Narrative 03/30/2020 11:46 AM CDT EXAMINATION: ??Computed tomography of the abdomen and pelvis without intravenous contrast HISTORY: Nephrolithiasis and left hydronephrosis TECHNIQUE: ??Transaxial computed tomographic images of the abdomen and pelvis ??were obtained without intravenous contrast according to the renal stone protocol COMPARISON: None available FINDINGS: ?? Lung bases are clear. ??There is no pleural effusion, airspace consolidation, or pneumothorax. The liver is normal in size. ??There is no intra or extrahepatic biliary duct dilatation. ??No hepatic lesion is demonstrated on this noncontrast study. ??Gallbladder is normal. ?? The spleen, adrenal glands, and pancreas are normal. Bilateral renal stones are present. ??In the mid zone of the right kidney, there is a 7 mm stone. ??Multiple stones are seen in the left kidney. ??The largest in the renal pelvis measures 1.4 cm. ??There is no hydronephrosis on the right. ??There is mild left hydronephrosis. There is no obstructing ureteral stone or stone seen in the bladder. No bladder is normal. The stomach and duodenum are normal. Post operative changes of ileocolic resection are redemonstrated. ??Small bowel and colon are without evidence of obstruction or inflammation. ??There is no free air or fluid in the abdomen or pelvis. ?? The abdominal aorta is normal in caliber. ??There is no mesenteric retroperitoneal or pelvic lymphadenopathy. No suspicious osseous lesion is seen. Procedure Note Brandon Cabezas MD - 03/30/2020 EXAMINATION: Computed tomography of the abdomen and pelvis without intravenous contrast HISTORY: Nephrolithiasis and left hydronephrosis TECHNIQUE: Transaxial computed tomographic images of the abdomen and pelvis were obtained without intravenous contrast according to the renal stone protocol COMPARISON: None available FINDINGS: Lung bases are clear. There is no pleural effusion, airspace consolidation, or pneumothorax. The liver is normal in size. There is no intra or extrahepatic biliary duct dilatation. No hepatic lesion is demonstrated on this noncontrast study. Gallbladder is normal. The spleen, adrenal glands, and pancreas are normal. Bilateral renal stones are present. In the mid zone of the right kidney, there is a 7 mm stone. Multiple stones are seen in the left kidney. The largest in the renal pelvis measures 1.4 cm. There is no hydronephrosis on the right. There is mild left hydronephrosis. There is no obstructing ureteral stone or stone seen in the bladder. No bladder is normal. The stomach and duodenum are normal. Post operative changes of ileocolic resection are redemonstrated. Small bowel and colon are without evidence of obstruction or inflammation. There is no free air or fluid in the abdomen or pelvis. The abdominal aorta is normal in caliber. There is no mesenteric retroperitoneal or pelvic lymphadenopathy. No suspicious osseous lesion is seen. IMPRESSION: 1. Bilateral renal calculi, the largest measuring 1.4 cm in the collecting system of the left kidney. 2. Mild left hydronephrosis Dictated by: Adalgisa Daugherty M.D. The radiology attending physician has personally reviewed this study, and had reviewed and/or edited this written report and agrees with it. Electronically signed by: Brandon Cabezas M.D. Jr Verde MD IMG CT PROCEDURES Final Result documented in this encounter Visit Diagnoses Diagnosis Nephrolithiasis Calculus of kidney documented in this encounter Care Teams Coal Shooter Relationship Specialty Start Date End Date Jayla Phoenix MD [address] [place] [address] PCP - General 08/07/17 documented as of this encounter
--- OUTSIDE RECORDS SUMMARY | 2024-08-23 08:07 | XMS_ITS | Encounter Summary ---
Author Organization [facility] Healthcare Address [address] [place] [address] Care Team Providers Care Body Designer Name Role Phone Jayla Phoenix MD Primary Care Provider + [phone] Reason for Referral * Diagnostic Imaging (Routine) - Closed Specialty Diagnoses / Procedures Referred By Rafaelac t Referred To Contact Diagnoses Nephrolithiasis Procedures FL Fluoroscopy < 1 Hour Hipolito Reyes MD Phone: tel: fax: [address] [phone] Referral ID Status Reason Start Date Expiration Date Visits Re quested Visits Authorized [id number] Closed 04/12/2020 05/12/2021 1 1 Reason for Visit * Diagnostic Imaging (Routine) - Closed Specialty Diagnoses / Procedures Referred By Elina senior Referred To Contact Diagnoses Nephrolithiasis Procedures FL Fluoroscopy < 1 Hour Hipolito Reyes MD Phone: tel: fax: [address] [phone] Referral ID Status Reason Start Date Expiration Date Visits Re quested Visits Authorized [id number] Closed 04/12/2020 05/12/2021 1 1 Encounter Details Date Type Department Care Team (Latest Contact Info) Description 04/12/2020 6:55 AM CDT - 04/12/2020 10:08 AM CDT Hospital Encounter 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 Gender Identity Male 02/04/2019 10:52 AM CDT Sexual Orientation Straight 02/04/2019 10 :52 AM CDT documented as of this encounter Medications at Time of Discharge cyanocobalamin, vitamin B-12, 5,000 mcg tablet, sublingualIndica tions:Prevention of Vitamin B12 Deficiency Place 1 tablet under the tongue sales engineering manager before breakfast losartan-hydroch lorothiazide (HYZAAR) 100-25 mg per tabletIndication s:hypertension Take 1 tablet by mouth nightly 02/23/2019 multivitamin capsuleIndicatio ns:Vitamin Deficiency Prevention Take 1 capsule by mouth sales engineering manager before breakfast cephalexin (KEFLEX) 500 mg capsuleIndicatio [...] documented in this encounter Miscellaneous Notes * Provider Query - Denice Bowers - 04/12/2020 7:00 AM CDT Clinical Indicators/Treatments: 04/12 OP Note: PROCEDURE: PERCUTANEOUS NEPHROLITHOTOMY (L) 04/14 Op Note PROCEDURE: SECOND LOOK PERCUTANEOUS NEPHROLITHOTOMY (L) Using fluoroscopy we identified the area of the left kidney, and appreciated that the stones were not radio-opaque. With contrast infused via the nephrostomy tube, we appreciated normal renal anatomy. I advanced a motion wire down the 5 tunisian catheter into the bladder, then removed the nephrostomytube and 5 tunisian catheter. I advanced an 8-10 fr dilator [...] excluded calyx. We placed an 8.5 Fr Troy loop into the left lower pole under fluoro guidance, removed the sheath, held pressure to the back, and ultimately removed the motion wire. Nephrostogram through the Troy loop revealed good positioning of tubes and some contrast extravasation from the area of the lower pole infundibular tear. The Tube on the back were sutured using 2-0 silk, a dressing on the back was applied, and the patient's pichardo was removed. Clarify if the diagnosis of infundibular tear : ___ is inherent to the surgical procedure (not a complication) Provider Response: Clarify if the diagnosis of infundibular tear : ___ is inherent to the surgical procedure (not a complication) Use of terms such as likely, suspected, possible, or probable (associated with a specific diagnosisthat is being evaluated, monitored, or treated as if it exists) are acceptable and can be coded in the inpatient setting when documented at the time of discharge. This documentation will become part of the patient???s medical record. Sincerely, [facility] Information Management documented in this encounter Plan of Treatment Not on file documented as of this encounter Procedures Procedure Name Priority Date/Time Associated Diagnosis Comments FL FLUOROSCOPY < 1 HOUR Schedule Routine, Read Routine (OP Routine) 04/12/2020 3:45 PM CDT Nephrolithiasis documented in this encounter Results * FL Fluoroscopy < 1 Hour (04/12/2020 3:45 PM CDT) Narrative [facility] - 04/12/2020 3:48 PM CDT The images from this study are not interpreted by Radiology. ??Please refer to the physician's procedure / OR operative note. us Hipolito Reyes MD IMG FLUOROSCOPY PRO CEDURES Final Result [facility] documented in this encounter Visit Diagnoses Diagnosis Nephrolithiasis Calculus of kidney documented in this encounter Care Teams Body Designer Relationship Specialty Start Date End Date Jayla Phoenix MD [address] [id number] PCP - General 08/07/17 documented as of this encounter
--- OUTSIDE RECORDS SUMMARY | 2024-08-23 08:07 | XMS_ITS | Encounter Summary ---
Author Organization [facility] Address [address] [facility] [address] [place] [address] Phone Care Team Providers Care Advertiser Name Role Phone Jayla Phoenix MD Primary Care Provider + [phone] Reason for Visit * Consultation (Routine) - Closed Specialty Diagnoses / Procedures Referred By Elina t Referred To Contact Urology Diagnoses Kidney stone on left side Hydronephrosis with ureteropelvic junction (UPJ) obstruction Corbin Duque MD [address] [place] [address] Phone: tel: fax: [facility] (All Locations) Referral ID Status Reason Start Date Expiration Date V isits Requested Visits Authorized [id number] Closed Specialty Services Required 03/02/2020 09/11/2021 99 99 Encounter Details Date Type Department Care Team (Latest Contact Info) Description 03/30/2020 1:40 PM CDT Telemedicine [facility] Urology [address] [place] [address] Jr Verde MD [address] 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 This was a telemedicine visit with Kristian Vasques alone which took place via Telephone. During the visit, I was located in the office and the patient was located at work in the [employer]. The patient visit started at 1556 and ended at 1559. Please note 4 minutes were spent in the direct care of this patient, of which 100% were spent in [id number] consultation via-telephone. The patient: has been informed that the visit may not be secure and acknowledged the information. The option of participating in a telephone or video visit during the [facility] [place] [address] emergencywas explained to them. After being given an opportunity to ask questions about and discuss this type of visit, they verbally consented to proceeding with the telephone/video visit and understand thatthis service replaces an office visit. Jr Verde MD Urology Clinic Note Subjective Chief complaint: nephrolithiasis History of present illness: Kristian Vasques is a 49 y.o. male has completed CT imaging for renal stone. This reveals large stone burden of left kidney,with several large stones measuring >1cm, and hydronephrosis of left likely from stone causing UPJ obstruction Additional Labs: I have reviewed the following laboratory results. Lab Results Component Value Date CREATININE 1.20 02/16/2019 No results found for: PSA Additional Labs: UA: Lab Results Component Value Date DARYL 5.0 03/16/2020 RBCU 0-2 02/12/2019 UROBILINOGEN <2.0 02/12/2019 NITRITEU Negative 02/12/2019 NITRITEU Negative 09/27/2017 KETONESU Negative 03/16/2020 KETONESU Negative 02/12/2019 KETONESU Negative 09/27/2017 Assessment/Plan Mr Kristian Vasques is a 49 y.o. male with bilateral nephrolithiasis and large stone burden of leftkidney,with several large stones measuring >1cm, and hydronephrosis of left likely from stone causing UPJ obstruction. I have recommended PCNL for tretment of his stone burden. He is agreeable to seeing our stone specialist, Dr Reyes to discuss this treatment modality, and he is agreeable and wishes to proceed There are no Patient Instructions on file for this visit. documented in this encounter Plan of Treatment Not on file documented as of this encounter Visit Diagnoses Diagnosis Nephrolithiasis- Primary Calculus of kidney Hydronephrosis with urinary obstruction due to renal calculus documented in this encounter Care Teams Advertiser Relationship Specialty Start Date End Date Jayla Phoenix MD [address] [place] [address] PCP - General 08/07/17 documented as of this encounter
--- OUTSIDE RECORDS SUMMARY | 2024-08-23 08:07 | XMS_ITS | Encounter Summary ---
Author Organization [facility] Address [address] [place] [address] Phone Care Team Providers Care Lap Machine Operator Name Role Phone Jayla Phoenix MD Primary Care Provider + [phone] Reason for Visit * Reason Comments Nephrolithiasis * Consultation (Routine) - Closed Specialty Diagnoses / Procedures Referred By Elina senior Referred To Contact Urology Diagnoses Kidney stone on left side Hydronephrosis with ureteropelvic junction (UPJ) obstruction Corbin Duque MD [address] [place] [address] Phone: tel: fax: [facility] (All Locations) Referral ID Status Reason Start Date Expiration Date V isits Requested Visits Authorized [id number] Closed Specialty Services Required 03/02/2020 09/11/2021 99 99 Encounter Details Date Type Department Care Team (Late st Contact Info) Description 04/06/2020 3:30 PM CDT Telemedicine [facility] Urology [address] [facility] [address] [place] [address] Hipolito Reyes MD [address] [place] [address] Bilateral nephrolithiasis (Primary Dx) Social History Tobacco Use Types Packs/Day Years Used Date Smoking Tobacco: Former Cigarettes 1.5 9 1 994 - 2003 Smokeless Tobacco: Never Alcohol Use Standard Drinks/Week Comments Not Currently 0 (1 standard drink = 0.6 oz pur e alcohol) Sex and Gender Information Value Date Recorded Sex Assigned at Not on file 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 This was a telemedicine visit with Kristian Vasques alone which took place via Telephone. During the visit, I was located in the office and the patient was located at home. The patient visit started at 4:15pm and ended at 4:30pm on 04/04/2020. Total encounter time was 30 minutes, which includes time spent today on pre charting, the patient encounter, and post charting. The patient has been informed that the visit may not be secure and acknowledged the information. I have explained the option of participating in a telephone or video visit during the [facility] public [facility] emergency to the patient. After being given an opportunity to ask questions about and discuss this type of visit, the patient verbally consented to proceeding with the telephone/video visit.The patient understands that this service replaces an office visit and they may be billed and/or responsible for any applicable copayments. Hipolito Reyes MD Chief Complaint: Chief Complaint Patient presents with ??? Nephrolithiasis History of Present Illness: I was requested to see Kristian Vasques to evaluate for nephrolithiasis by Dr. Jr Verde in the Urology faculty practice clinic at [facility]. Kristian Vasques is a 49 y.o. male Who has a history of nephrolithiasis dating back several years. He has previously undergone SWL and has had a ureteral stent before. He recently was diagnosed with a very large left renal stone burden as well as a 1 cm right stone burden. He fortunately has not had symptoms or radiographic evidence of urine obstruction. The patient's past medical, surgical, medication, allergy, [...] BOWEL RESECTION 2008 ??? KIDNEY STONE SURGERY The patient is currently taking the following medications: Current Outpatient Medications Medication Sig Dispense Refill ??? cholestyramine-aspartame 4 gram powder Take 1 Scoop by mouth 2 (two) times a day 1 Can 1 ??? cyanocobalamin, vitamin B-12, 5,000 mcg tablet, sublingual Place under the tongue ??? ergocalciferol (VITAMIN D) 50,000 unit capsule Take 1 capsule (50,000 Units total) by mouth once a week (Patient not taking: Reported on 03/30/2020) 4 capsule 1 ??? losartan-hydrochlorothiazide (HYZAAR) 100-25 mg per tablet ??? multivitamin capsule Take 1 capsule by mouth daily No current facility-administered medications for this visit. [...] Packs/day: 1.50 Start date: 1993 Quit date: 2003 Years since quittin.6 ??? Smokeless tobacco: [...] file Gets together: Not on file Attends anabaptism service: Not on file Active member of [...] this encounter. Constitutional: denies fever and chills Pulm: no cough or shortness of breath : No dysuria. No incomplete voiding. + nephrolithiasis Physical Exam There were no vitals filed for this visit. Unable to assess - telephone visit The following lab results were personally reviewed by me: Objective: Labs Reviewed Lab Results Component Value Date CREATININE 1.20 02/16/2019 No results found for: PSA The following images were personally reviewed by me. CT Renal Stone Narrative: EXAMINATION: Computed tomography of the abdomen and [...] lymphadenopathy. No suspicious osseous lesion is seen. Impression: 1. Bilateral renal calculi, the largest measuring 1.4 cm in the collecting system of the left kidney. 2. Mild left hydronephrosis Dictated by: Adalgisa Daugherty M.D. The radiology attending physician has personally reviewed this study, and had reviewed and/or edited this written report and agrees with it. Electronically signed by: Brandon Cabezas M.D. Ct Renal Stone Result Date: 03/30/2020 1. Bilateral renal calculi, the largest measuring 1.4 cm in the collecting system of the left kidney. 2. Mild left hydronephrosis Dictated by: Adalgisa Daugherty M.D. The radiology attending physician has personally reviewed this study, and had reviewed and/or edited this written report and agrees with it. Electronically signed by: Brandon Cabezas M.D. Orders: No orders of the defined types were placed in this encounter. Assessment and Plan: It was a pleasure seeing Kristian Vasques in clinic today. Kristian Vasques is a 49 y.o. male with bilateral nephrolithiasis. We will plan for Left percutaneous nephrolithotomy. He would like to observe the right kidney stonefor now. I will plan to admit him to the hospital and schedule a secondary PCNL for 2 days later given the large stone burden. He agrees and is willing to proceed. We did discuss that he will likely have a ureteral stent in place on both sides. Thank you for allowing us to participate in the care of this patient. Please do not hesitate to contact us should you have any questions or concerns at [phone]. documented in this encounter Plan of Treatment Not on file documented as of this encounter Visit Diagnoses Diagnosis Bilateral nephrolithiasis- Primary documented in this encounter Care Teams Lap Machine Operator Relationship Specialty Start Date End Date Jayla Phoenix MD [address] [place] [address] PCP - General 08/07/17 documented as of this encounter
--- OUTSIDE RECORDS SUMMARY | 2024-08-23 08:07 | XMS_ITS | Encounter Summary ---
Author Organization [facility] Address [address] [place] [address] Phone Care Team Providers Care Control Area Operator Name Role Phone Jayla Phoenix MD Primary Care Provider [phone] Reason for Visit * Reason Onset Date Comments Lab Results 04/08/2020 Encounter Details Date Type Department Care Team (Late st Contact Info) Description 04/08/2020 Documentation [facility] Gastroenterology [address] [facility] 8[address] [place] [address] [place] [address] Michelle Hazel floriculture professor Results Social History Tobacco Use Types Packs/Day Years Used Date Smoking Tobacco: Former Cigarettes 1.5 9 1 994 - 2003 Smokeless Tobacco: Never Alcohol Use Standard Drinks/Week Comments Not Currently 0 (1 standard drink = 0.6 oz pur e alcohol) Sex and Gender Information Value Date Recorded Sex Assigned at Not on file 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
--- OUTSIDE RECORDS SUMMARY | 2024-08-23 08:07 | XMS_ITS | Encounter Summary ---
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 Gender Identity Male 02/04/2019 10:52 AM CDT Sexual Orientation Straight 02/04/2019 10 :52 AM CDT documented as of this encounter Plan of Treatment Not on file documented as of this encounter Procedures Procedure Name Priority Date/Time Associated Diagnosis Comments SCAN - LABS 03/31/2020 documented in this encounter Results * SCAN - LABS (03/31/2020) us Provider Scanning Final Result documented in this encounter Visit Diagnoses Not on filedocumented in this encounter Care Teams Servicer Coin Machines Relationship Specialty Start Date End Date Jayla Phoenix MD [address] [place] [address] PCP - General 08/07/17 documented as of this encounter
--- OUTSIDE RECORDS SUMMARY | 2024-08-23 08:07 | XMS_ITS | Encounter Summary ---
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 documented in this encounter Plan of Treatment Not on file documented as of this encounter Procedures Procedure Name Priority Date/Time Associated Diagnosis Comments COVID-19 CORONAVIRUS RNA Routine 03/30/2020 3:45 PM CDT Pre-op testing documented in this encounter Results * COVID-19 Coronavirus RNA Nasopharyngeal (03/30/2020 3:45 PM CDT) COVID-19 RNA Not Detected [facility] Comment: Interpretive Data Testing performed at [facility] Molecular Infectious Disease Laboratory. The 2018-Novel [...] last revised on 2019. Testing performed by: [facility], [address] [place]., [address] Nasopharyngeal 03/30/2020 3: 45 PM CDT 03/31/2020 8:05 AM CDT Narrative [facility] - 03/31/2020 1:36 PM CDT Is the patient experiencing any symptoms consistent with COVID (eg. Fever, cough, shortness of breath)?->No What is the reason for testing?->Screening prior to scheduled (>12 hr) surgery or procedure us Corbin Duque MD LAB MICROBIOLOGY - GENERAL ORDERABLES Final Result [facility] [address] Department [place] [address] documented in this encounter Visit Diagnoses Diagnosis Pre-op testing Unspecified pre-operative examination documented in this encounter Care Teams Property Staff Accountant Relationship Specialty Start Date End Date Jayla Phoenix MD [address] [place], [place] [id number] PCP - General 08/07/17 documented as of this encounter
--- OUTSIDE RECORDS SUMMARY | 2024-08-23 08:07 | XMS_ITS | Encounter Summary ---
Author Organization [facility] Address [address] [place] [address] Care Team Providers Care [employer] Officer Name Role Phone Jayla Phoenix MD Primary Care Provider [phone] Encounter Details Date Type Department Care Team ([facility] st Contact Info) Description 04/04/2020 10:51 AM CDT Anesthesia Event [facility] Endoscopy [address] [place] [address] Colton Sanches MD [address] [facility] [address] [place] [address] Anesthesia Record Procedure Summary Procedure Name Responsible Anesthesiologist Anesthesia Start Time Anesthesia Stop Time COLON BIOPSY (Colon) Colton Sanches MD 04/04/20 1051 04/04/20 1127 Events Date Time Event Comment 04/04/2020 1003 AN Equip Check 1012 1051 An Start 1051 An Start Data 1052 In Room 1052 Start Supplemental O2 1056 Patient Positioned Laterally 1057 An Induction The patient was reevaluated immediately before moderate or deep sedation use and before anesthesia induction. 1057 Anesthesia Ready 1100 Proc Start 1120 Proc Fin 1123 an stop data 1124 Out of Room 1126 Handoff to RN I completed my handoff [...] disposition at the time of handoff: PACU 1127 An Stop Meds Name Total propofol 450 mg lidocaine 2 % 5 mL sodium chloride 0.9% infusion 700 mL * Agents Name O2 * Blood No blood administrations on file. Lines, Drains, and Airways Type Details Placement Removal RETIRED Surgical Site 02/16/19; 1340; Ne ck; 04/13/20 (not present on admission); 1250 02/16/19 1340 by Laura Loya RN 04/13/20 1250 by Brianne Cabral RN Peripheral IV Placement Date: 04/04/20; Placement Time: 1011; Catheter Size: 22 G; Orientation: Right; Location: Hand; Site Prep: Chlorhexidine; Inserted by: Alejandra Ardon RN; Insertion Attempts: 1; Patient Tolerance: Tolerated well; Removal Date: 04/04/20; Removal Time: 1146; Removal Reason: Discharge 04/04/20 1011 by Carolina Tena RN 04/04/20 1146 by Demetrice Moreno RN documented in this encounter Social History Tobacco Use Types Packs/Day Years Used Date Smoking Tobacco: Former Cigarettes 1.5 9 1 994 - 2003 Smokeless Tobacco: Never Alcohol Use Standard Drinks/Week Comments Not Currently 0 (1 standard drink = 0.6 oz pur e alcohol) Sex and Gender Information Value Date Recorded Sex Assigned at Not on file 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 Gender Identity Male 02/04/2019 10:52 AM CDT Sexual Orientation Straight 02/04/2019 10 :52 AM CDT documented as of this encounter OR Notes * Anesthesia Postprocedure Evaluation - Colton Sanches MD - 04/04/2020 1:34 PM CDT Patient: Kristian Vasques Procedure Summary Date: 04/04/20 Room / Location: [facility] ENDOSCOPY ROOM [facility] ENDOSCOPY Anesthesia Start: 1051 Anesthesia Stop: 112 Procedure: COLON BIOPSY (N/A Colon) Diagnosis: 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) (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) [K50.813]) Provider: Corbin Duque MD Responsible Provider: Colton Sanches MD Anesthesia Type: general ASA Status: 2 Anesthesia Type: general Last vitals BP 122/85 Pulse 63 Temp 36.6 ??C (97.9 ??F) (Transdermal) Resp 24 SpO2 98% Anesthesia Post Evaluation Patient location during evaluation: PACU Patient participation: complete - patient participated Level of consciousness: fully awake Pain score: 0 Pain management: adequate Airway patency: adequate Evidence of recall: no Anesthetic complications: no Cardiovascular status: hemodynamically stable and acceptable Respiratory status: acceptable and room air Hydration status: acceptable Pt is: normothermic Nausea/Vomiting status: none * Anesthesia Preprocedure Evaluation - Colton Sanches MD - 04/04/2020 10:12 AM CDT Images from the original note were not included. Anesthesia Evaluation Kristian Vasques is a 49 y.o. male Procedure(s): COLONOSCOPY Pre-Op Diagnosis Codes: * 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) [K50.813] Patient Active Problem List Diagnosis ??? Cervical pain (neck) ??? Cervical radiculopathy at C7 ??? Cervical disc herniation ??? Cervical radiculopathy ??? Fusion of spine of cervical region ??? Crohn's disease of both small and large intestine with other complication (CMS/HCC) ??? 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) Past Medical History: Diagnosis Date ??? Crohn's [...] End Date Provider cholestyramine-aspartame 4 gram powder 04/01/2020 03/10/20 -- Corbin Duque MD Take 1 Scoop by mouth 2 (two) times a day cyanocobalamin, vitamin B-12, 5,000 mcg tablet, sublingual 04/03/2020 -- -- Historical Provider, ergocalciferol (VITAMIN D) 50,000 unit capsule 04/01/2020 03/22/20 03/22/21 Corbin Duque MD Take 1 capsule (50,000 Units total) by mouth once a week Patient not taking: Reported on 03/30/2020 losartan-hydrochlorothiazide (HYZAAR) 100-25 mg per tablet 04/03/2020 02/23/19 -- Historical Provider, multivitamin capsule 04/01/2020 -- -- Historical Provider, Current Facility-Administered Medications: ??? [MAR Hold] sodium chloride 0.9% flush 0.5-20 mL, 0.5-20 mL, intra-catheter, Q8H SREEDHAR ??? [MAR Hold] sodium chloride 0.9% flush [...] Father ??? Anesthesia problems Neg Hx Vitals: 04/04/20 0955 04/04/20 1005 BP: 129/93 Pulse: 73 Resp: 11 Temp: 36.3 ??C (97.3 ??F) SpO2: 98% PT: No results found for requested labs [...] for requested labs within last 720 hours. STOP-Bang Total Score: 3 DOS Physical Exam Medical history, medications, and allergies reviewed. Attestation: This PAT evaluation Airway Exam: Mallampati: III Cervical ROM: FROM Cardiovascular Exam: Rate: regular Rhythm: regular Pulmonary Exam: LCTA, bilat Anesthesia Plan ASA 2 My patient is approved for the Anesthesia Controlled Medication protocol when under care of a CAUL PULLER Planned anesthesia: General Informed Consent: Anesthesia plan [...] %) injection intravenous, As needed, Starting on 04/04/20 at 1057, Anesthesia Intra-op, Indications: Administration of Local AnesthesiaIndications:Administrati on of Local Anesthesia Given 04/04/2020 10:57 AM CDT 5 mL propofoL (DIPRIVAN) IV intravenous, As needed, Starting on 04/04/20 at 1057, Anesthesia Intra-op Given 04/04/2020 11:18 AM CDT 50 mg Given 04/04/2020 11:14 AM CDT 50 mg Given 04/04/2020 11:11 AM CDT 50 mg documented in this encounter Care Teams [employer] Officer Relationship Specialty Start Date End Date Jayla Phoenix MD [address] [place] [address] PCP - General 08/07/17 documented as of this encounter
--- OUTSIDE RECORDS SUMMARY | 2024-08-23 08:08 | XMS_ITS | Encounter Summary ---
Author Organization [facility] Address [address] [place] [address] Phone Care Team Providers Care Paper Pattern Inspector Name Role Phone Jayla Phoenix MD Primary Care Provider [phone] Reason for Visit * Reason Onset Date Comments Lab Results 02/01/2020 Encounter Details Date Type Department Care Team (Late st Contact Info) Description 02/01/2020 Documentation [facility] [address] [facility] Medicine 8th [place] [address] [place] [address] Michelle Hazel collating machine operator Results Social History Tobacco Use Types Packs/Day Years Used Date Smoking Tobacco: Former Cigarettes 1.5 9 1 994 - 2003 Smokeless Tobacco: Never Alcohol Use Standard Drinks/Week Comments Not Currently 0 (1 standard drink = 0.6 oz pur e alcohol) Sex and Gender Information Value Date Recorded Sex Assigned at Not on file 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 CMP normal besides ALT of 70. documented in this encounter Plan of Treatment Not on file documented as of this encounter Visit Diagnoses Not on filedocumented in this encounter Care Teams Paper Pattern Inspector Relationship Specialty Start Date End Date Jayla Phoenix MD [address] [place] [address] PCP - General 08/07/17 documented as of this encounter
--- OUTSIDE RECORDS SUMMARY | 2024-08-23 08:08 | XMS_ITS | Encounter Summary ---
Author Organization [facility] Address [address] [place] [address] Phone Care Team Providers Care Board Certified Behavioral Analyst Name Role Phone Jayla Phoenix MD Primary Care Provider [phone] Encounter Details Date Type Department Care Team (Late st Contact Info) Description 03/11/2020 Orders Only [facility] Gastroenterology [address] [facility] Advanced Medicine 8th [place] [address] [place] [address] Corbin Duque MD [address] [place] [address] Social History Tobacco Use Types Packs/Day Years Used Date Smoking Tobacco: Never Assessed Sex and Gender Information Value Date Recorded Sex Assigned at Not on file 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
--- OUTSIDE RECORDS SUMMARY | 2024-08-23 08:08 | XMS_ITS | Encounter Summary ---
Author Organization [facility] Address [address] [place] [address] Care Team Providers Care License Examiner Name Role Phone Jayla Phoenix MD Primary Care Provider [phone] Reason for Referral * Diagnostic Imaging (Routine) - Closed Specialty Diagnoses / Procedures Referred By Rafaelac t Referred To Contact Radiology Diagnoses Crohn's disease of small and large intestines with complication (HCC) Procedures MRI Enterography (abdomen) W WO Contrast Stefany Zuniga NP [address] [address] Phone: tel: fax: [facility] Referral ID Status Reason Start Date Expiration Date Visits Re quested Visits Authorized [id number] Closed 01/20/2020 07/31/2021 1 1 Reason for Visit * Diagnostic Imaging (Routine) - Closed Specialty Diagnoses / Procedures Referred By Contjaycee t Referred To Contact Radiology Diagnoses Crohn's disease of small and large intestines with complication (HCC) Procedures MRI Enterography (abdomen) W WO Contrast Stefany Zuniga NP [address] [facility] [place] [address] Phone: tel: fax: [facility] Referral ID Status Reason Start Date Expiration Date Visits Re quested Visits Authorized [id number] Closed 01/20/2020 07/31/2021 1 1 Encounter Details Date Type Department Care Team (Late st Contact Info) Description 02/29/2020 8:30 AM CDT - 02/29/2020 11:59 PM CDT Hospital Encounter [facility] at [facility] [address] [facility] [address] [place] [address] Unknown, Dextereleazarsteph ZunigaStefany, SURFACE WATER TECHNICIAN [address] [place] [address] Crohn's disease of small and large intestines [...] on file 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 Gender Identity Male 02/04/2019 10:52 AM CDT Sexual Orientation Straight 02/04/2019 10 :52 AM CDT documented as of this encounter Medications at Time of Discharge cyanocobalamin, vitamin B-12, 5,000 mcg tablet, sublingualIndica tions:Prevention of Vitamin B12 Deficiency [address] 1 tablet under the tongue metal storage worker before breakfast losartan-hydroch lorothiazide (HYZAAR) 100-25 mg per tabletIndication s:hypertension Take 1 tablet by mouth nightly 02/23/2019 multivitamin capsuleIndicatio ns:Vitamin Deficiency Prevention Take 1 capsule by mouth metal storage worker before breakfast cholestyramine-a spartame 4 gram powderIndication s:for bowel resection Take 1 Scoop by mouth 2 (two) times a day 1 Can 1 01/25/2020 0 documented as of this encounter Discharge Disposition Disposition Code Departure Means Destination Discharge to home or self care documented in this encounter Plan of Treatment Not on file documented as of this encounter Procedures Procedure Name Priority Date/Time Associated Diagnosis Comments MRI ABDOMENT ENTEROGRAPHY W WO CONTRAST Schedule Routine, Read Routine (OP Routine) 02/29/2020 11:04 AM CDT Crohn's disease of small and large intestines with complication (CMS/HCC) documented in this encounter Results * MRI Enterography (abdomen) W WO Contrast (02/29/2020 11:04 AM CDT) Anatomical Region Laterality Modality Body N/A Magnetic Resonan ce 02/29/2020 3:51 PM CDT Impressions 02/29/2020 4:17 PM CDT 1. ??Enterocolic fistula at the level of the ileocolic anastomosis with active inflammatory changes. 2. ??Suspected obstructing 1.2 cm left ureteral calculus at the ureteropelvic junction. Attempted to contact the ordering provider. ??Messages were left on providers answering machine and sent via Panono at 3:51 PM 02/29/2020. Dictated by: Mario Francisco D.O. The radiology attending physician has personally reviewed this study, and had reviewed and/or edited this written report and agrees with it. Electronically signed by: David Head M.D. Narrative 02/29/2020 4:17 PM CDT EXAMINATION: MAGNETIC RESONANCE IMAGING OF THE ABDOMEN WITH AND WITHOUT CONTRAST HISTORY: 49-year-old with intermittent abdominal pain and Crohn's disease. ??Status post ileocecal resection. ??In 2008. TECHNIQUE: Magnetic resonance imaging of the abdomen was performed prior to and following the uneventful administration of intravenous Gadolinium contrast. Oral Volumen and 1 mg of intravenous glucagon was administered prior to the examination. Protocol: MR Enterography Contrast: Dotarem 20 mL COMPARISON: No prior magnetic resonance imaging is available for comparison. FINDINGS: Bowel: Postoperative changes of ileocecal resection. ??There is an enterocolic fistula arising from the posterior aspect of the adjacent colon at the level of the ileocolic anastomosis which is best seen on series 27 images 1-8 and series 21 image 33. ??There is mild enhancement suggest active inflammation. ??Otherwise, no bowel wall thickening, stenosis or dilation. ??No perianal fistula demonstrated. Stool-filled colon. Liver/Bile Ducts: Normal size and morphology. ??No intrahepatic mass demonstrated. ??No ductal dilatation. Gallbladder: Normal. Pancreas: Normal. Spleen: Normal. Adrenals: Normal. Kidneys: Moderate left hydronephrosis with obstructing calculus with susceptibility at the ureteropelvic junction measures 1.2 cm. ??Left lower pole renal cysts. ??No right hydronephrosis or suspicious mass. Bladder: No wall thickening or calculus. Reproductive organs: Normal. Other Findings: The lung bases are clear. ??No lymphadenopathy. Procedure Note David Head MD - 02/29/2020 EXAMINATION: MAGNETIC RESONANCE IMAGING OF THE ABDOMEN WITH AND WITHOUT CONTRAST HISTORY: 49-year-old with intermittent abdominal pain and Crohn's disease. Status post ileocecal resection. In 2008. TECHNIQUE: Magnetic resonance imaging of the abdomen was performed prior to and following the uneventful administration of intravenous Gadolinium contrast. Oral Volumen and 1 mg of intravenous glucagon was administered prior to the examination. Protocol: MR Enterography Contrast: Dotarem 20 mL COMPARISON: No prior magnetic resonance imaging is available for comparison. FINDINGS: Bowel: Postoperative changes of ileocecal resection. There is an enterocolic fistula arising from the posterior aspect of the adjacent colon at the level of the ileocolic anastomosis which is best seen on series 27 images 1-8 and series 21 image 33. There is mild enhancement suggest active inflammation. Otherwise, no bowel wall thickening, stenosis or dilation. No perianal fistula demonstrated. Stool-filled colon. Liver/Bile Ducts: Normal size and morphology. No intrahepatic mass demonstrated. No ductal dilatation. Gallbladder: Normal. Pancreas: Normal. Spleen: Normal. Adrenals: Normal. Kidneys: Moderate left hydronephrosis with obstructing calculus with susceptibility at the ureteropelvic junction measures 1.2 cm. Left lower pole renal cysts. No right hydronephrosis or suspicious mass. Bladder: No wall thickening or calculus. Reproductive organs: Normal. Other Findings: The lung bases are clear. No lymphadenopathy. IMPRESSION: 1. 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 2. Suspected obstructing 1.2 cm left ureteral calculus at the ureteropelvic junction. Attempted to contact the ordering provider. Messages were left on providers answering machine and sent via Panono at 3:51 PM 02/29/2020. Dictated by: Mario Francisco D.O. The radiology attending physician has personally reviewed this study, and had reviewed and/or edited this written report and agrees with it. Electronically signed by: David Head M.D. Stefany Aishwaryajerry Zuniga SURFACE WATER TECHNICIAN IMG MRI PROCEDURES Final R esult documented in this encounter Visit Diagnoses Diagnosis Crohn's disease of small and large intestines with complication (HCC) documented in this encounter Administered Medications Inactive Administered Medications - up to 3 most recent administrations Medication Order MAR Action Action Date Dose Rate Site gadoterate meglumine (DOTAREM) 0.5 mmol/mL injection 18.6 mL 18.6 mL (0.1 mmol/kg ? 93 kg), intravenous, Once in imaging, contrast, Starting on Sat02/29/20 at 1007, For 1 dose, Imaging Protocol Orders Given 02/29/2020 10:44 AM CDT 20 mL glucagon injection 1 mg 1 mg, intravenous, Administer over 1 Minutes, Once in imaging, low blood sugar, Starting on Sat02/29/20 at 1007, For 1 dose, Imaging Protocol Orders Given 02/29/2020 10:14 AM CDT 1 mg sodium chloride 0.9% flush 125 mL 125 mL, intravenous, Once in imaging, line care, Starting on Sat02/29/20 at 1007, For 1 dose Given 02/29/2020 10:44 AM CDT 125 mL documented in this encounter Care Teams License Examiner Relationship Specialty Start Date End Date Jayla Phoenix MD [address] [place] [address] PCP - General 08/07/17 documented as of this encounter
--- OUTSIDE RECORDS SUMMARY | 2024-08-23 08:08 | XMS_ITS | Encounter Summary ---
Author Organization [facility] Address [address] [place] [address] Phone Care Team Providers Care Criminal Investigator Customs Name Role Phone Jayla Phoenix MD Primary Care Provider [phone] Encounter Details Date Type Department Care Team (Late st Contact Info) Description 03/03/2020 Orders Only [facility] Gastro[facility] [address] 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 Gender Identity Male 02/04/2019 10:52 AM CDT Sexual Orientation Straight 02/04/2019 10 :52 AM CDT documented as of this encounter Ordered Prescriptions Prescription Sig Dispense Quantity Refills Last Filled Start Date End Date polyethylene glycol (GoLYTELY) 236-22.74-6.74 -5.86 gram solutionIndications :bowel prep Take 4,000 mL by mouth once for 1 dose 4000 mL 03/03/2020 03/03/2020 documented in this encounter Plan of Treatment Scheduled Orders Name Type Priority Associated Diagnoses Orde r Schedule Basic metabolic panel Lab Routine 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) High risk medications (not anticoagulants) long-term use Expected: 03/03/2020, Expires: 03/03/2021 Vitamin D 25 hydroxy Lab Routine 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) High risk medications (not anticoagulants) long-term use Expected: 03/03/2020, Expires: 03/03/2021 Vitamin B12 Lab Routine 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) High risk medications (not anticoagulants) long-term use Expected: 03/03/2020, Expires: 03/03/2021 TB test, quantiferon gold Lab Routine 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) High risk medications (not anticoagulants) long-term use Expected: 03/03/2020, Expires: 03/03/2021 Hepatitis B Surface Antigen Lab Routine 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) High risk medications (not anticoagulants) long-term use Expected: 03/03/2020, Expires: 03/03/2021 Hepatitis B core antibody, total Lab Routine 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) High risk medications (not anticoagulants) long-term use Expected: 03/03/2020, Expires: 03/03/2021 Hepatitis B surface antibody (immune status) Lab Routine 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) High risk medications (not anticoagulants) long-term use Expected: 03/03/2020, Expires: 03/03/2021 Hepatic function panel Lab Routine 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) High risk medications (not anticoagulants) long-term use Expected: 03/03/2020, Expires: 03/03/2021 documented as of this encounter Visit Diagnoses Diagnosis 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)- Primary Follow-up examination following treatment with high-risk medication Follow-up examination following completed treatment with high-risk medications, not elsewhere classified High risk medications (not anticoagulants) long-term use Encounter for long-term (current) use of other medications documented in this encounter Orders Case Request Count Last Ordered Date First Orde red Date CASE REQUEST GI 1 03/03/2020 documented in this encounter Care Teams Criminal Investigator Customs Relationship Specialty Start Date End Date Jayla Phoenix MD [address] [place] [address] PCP - General 08/07/17 documented as of this encounter
--- OUTSIDE RECORDS SUMMARY | 2024-08-23 08:08 | XMS_ITS | Encounter Summary ---
Author Organization [facility] Address [address] [place] [address] Phone Care Team Providers Care Binman Name Role Phone Jayla Phoenix MD Primary Care Provider + [phone] Reason for Referral * Diagnostic Imaging (Routine) - Closed Specialty Diagnoses / Procedures Referred By Contac t Referred To Contact Diagnoses Kidney stone on left side Procedures US Kidney Complete Jr Verde MD Phone: tel: fax: [address] [phone] Referral ID Status Reason Start Date Expiration Date Visits Re quested Visits Authorized [id number] Closed 03/16/2020 04/15/2021 1 1 Reason for Visit * Reason Comments Nephrolithiasis * Consultation (Routine) - Closed Specialty Diagnoses / Procedures Referred By Contac t Referred To Contact Urology Diagnoses Kidney stone on left side Hydronephrosis with ureteropelvic junction (UPJ) obstruction Corbin Duque MD [address] [place] [address] Phone: tel: fax: [facility] (All Locations) Referral ID Status Reason Start Date Expiration Date V isits Requested Visits Authorized [id number] Closed Specialty Services Required 03/02/2020 09/11/2021 99 99 Encounter Details Date Type Department Care Team (Latest Contact Info) Description 03/16/2020 8:00 AM CDT Office Visit [facility] Urology [address] [facility] [address] Office Building [address] [place] [address] Jr Verde MD [address] [place] [address] Kidney stone on left side; Hydronephrosis, unspecified hydronephrosis type Social History Tobacco Use Types Packs/Day Years Used Date Smoking Tobacco: Former Cigarettes 1.5 9 1 2002 Smokeless Tobacco: Never Alcohol Use Standard Drinks/Week Comments Not Currently 0 (1 standard drink = 0.6 oz pur e alcohol) Sex and Gender Information Value Date Recorded Sex Assigned at Not on file 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 Gender Identity Male 02/04/2019 10:52 AM CDT Sexual Orientation Straight 02/04/2019 10 :52 AM CDT documented as of this encounter Last Filed Vital Signs Vital Sign Reading Time Taken Comments Blood Pressure 128/87 03/16/2020 8:17 AM CDT Pulse 88 03/16/2020 8:17 AM CDT Temperature - - Respiratory Rate - - Oxygen Saturation - - Inhaled Oxygen Concentration - - Weight 99.8 kg (220 lb) 03/16/2020 8:17 AM CDT Height 188 cm (6' 2 ) 03/16/2020 8:17 AM CDT Body Mass Index 28.25 03/16/2020 8:17 AM CDT documented in this encounter Progress Notes * rJ Verde MD - 03/16/2020 8:00 AM CDT Urology Clinic Note Subjective Chief complaint: Hydronephrosis Patient was seen at the request of Dr Duque History of present illness: Kristian Vasques is a 49 y.o. male who presents with Recent imaging suggesting left sided renal stone and hydronephrosis. He has history of crohn's disease and prior nephrolithiasis s/p RIGHT ESWL 5-6 years ago. Stone on that side required two treatments for 1.6cm stone. He reports previously having blood with prior stone episode, and mild flank pain. However, this time around he reports minimal pain complaints. He has passed a stone spontaneously 10 years ago. Medical History, Surgical History, Family History: Patient's history questionnaire was completed for today's visit. I have reviewed the patient's pastmedical history, surgical history, family history and review of systems as described in questionnaire. Please reference questionnaire for further details. Review of Systems: ROS has been reviewed and can be found in the chart. The patient's past medical history, social history, and family history have been reviewed and are listed on their questionnaire and chart. Vitals: Most Recent : There were no vitals taken for this visit. Physical Exam General Appearance: Alert, cooperative, no distress, appears stated age, well developed, well nourished Head: Normocephalic, without obvious abnormality, atraumatic Eyes: Conjunctiva/corneas clear and anicteric Nose: Nares normal, septum midline, mucosa normal, no drainage Throat: Mucous membranes moist Back: Symmetric, no curvature, ROM normal, no CVA tenderness Lungs: Breathing comfortably with minimal inspiratory effort Cardiovascular: Regular rate and rhythm Abdomen: Soft, non-tender, bowel sounds active all four quadrants, no masses, no organomegaly, non-distended Extremities: Extremities normal, atraumatic Skin: Skin color, texture, turgor normal, no rashes, lesions or bruising Lab/Radiology/Diagnostic Review: I have independently reviewed the images of the study described below, and agree with the impression as dictated. 02/29/20 IMPRESSION: 1. 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 ?? 2. Suspected obstructing 1.2 cm left ureteral calculus at the ureteropelvic junction. ?? Upon my read, the stone noted at UPJ/proximal ureter appears elongated but not wide Additional Labs: I have reviewed the following laboratory results. Lab Results Component Value Date CREATININE 1.20 02/16/2019 No results found for: PSA Additional Labs: UA: Lab Results Component Value Date RBCU 0-2 02/12/2019 UROBILINOGEN <2.0 02/12/2019 NITRITEU Negative 02/12/2019 NITRITEU Negative 09/27/2017 KETONESU Negative 02/12/2019 KETONESU Negative 09/27/2017 Assessment/Plan Mr Kristian Vasques is a 49 y.o. male seen today evaluation of left sided hydronephrois and MRI enterography suggesting 1.2cm left renal stone at UPJ. Stone appears elongated and ~0.5cm in width. This would be amenable to ESWL or URS. I counseled patient that due to lack of prior imaging dating back to 2013, I could not tell patienthow long he may have been experiencing hydronephrosis. He was cautioned that this stone may have been present for several years, and renal injury may have already occurred. He has creatinine level from 1 year ago showing normal serum level. We discussed further workup, including renal ultrasound, creatinine level and telemedicine follow up. - BMP to evaluate renal function - renal ultrasound to confirm stone location, if present will plan for surgery and discuss next week - if stone present, will obtain CT stone to identify size/location of stone - telemedicine follow up after renal ultrasound. - patient interested in metabolic workup once stone is cleared There are no Patient Instructions on file for this visit. documented in this encounter Plan of Treatment Scheduled Orders Name Type Priority Associated Diagnoses Orde r Schedule Basic metabolic panel Lab Routine Kidney stone on left side Expected: 03/16/2020, Expires: 03/16/2021 documented as of this encounter Procedures Procedure Name Priority Date/Time Associated Diagnosis Comments POCT URINALYSIS DIPSTICK Routine 03/16/2020 8:25 AM CDT Kidney stone on left side documented in this encounter Results * US Kidney Complete (03/23/2020 10:30 AM CDT) Anatomical Region Laterality Modality Kidney N/A Ultrasound 03/23/2020 11:4 0 AM CDT Impressions 03/23/2020 11:43 AM CDT 1. ??Moderate left hydronephrosis. ??No ureteral stone was identified, however the ureter was visualized in its entirety. 2. ??Bilateral nephrolithiasis up to 16 mm in diameter Dictated by: Evangelista Kang M.D. The radiology attending physician has personally reviewed this study, and had reviewed and/or edited this written report and agrees with it. Electronically signed by: Brandon Cabezas M.D. Narrative 03/23/2020 11:43 AM CDT EXAMINATION: COMPLETE RENAL SONOGRAM HISTORY: ??Renal stones and left hydronephrosis COMPARISON: ??None FINDINGS: ?? Kidneys: The echogenicity of both kidneys is normal. The kidneys are normal in size. ??The right kidney measures 11.5 cm in length, and the left, 10.9 cm in length. ??Moderate left hydronephrosis is present. No right hydronephrosis. ??Bilateral renal stones measuring up to 16 mm. ??No ureteral stone was identified, however the ureter was not visualized in its entirety. Bladder: The urinary bladder is normal Procedure Note Brandon Cabezas MD - 03/23/2020 EXAMINATION: COMPLETE RENAL SONOGRAM HISTORY: Renal stones and left hydronephrosis COMPARISON: None FINDINGS: Kidneys: The echogenicity of both kidneys is normal. The kidneys are normal in size. The right kidney measures 11.5 cm in length, and the left, 10.9 cm in length. Moderate left hydronephrosis is present. No right hydronephrosis. Bilateral renal stones measuring up to 16 mm. No ureteral stone was identified, however the ureter was not visualized in its entirety. Bladder: The urinary bladder is normal IMPRESSION: 1. Moderate left hydronephrosis. No ureteral stone was identified, however the ureter was visualized in its entirety. 2. Bilateral nephrolithiasis up to 16 mm in diameter Dictated by: Evangelista Kang M.D. The radiology attending physician has personally reviewed this study, and had reviewed and/or edited this written report and agrees with it. Electronically signed by: Brandon Cabezas M.D. us Jr Verde MD [facility] US PROCEDURES Final Result * (ABNORMAL) POCT urinalysis dipstick (03/16/2020 8:25 AM CDT) Pathologist [facility] Glucose, ur, POC 100.(A) Negative mg/dL Ketones, ur, POC Negative Negative Blood, ur, POC Negative Negative pH, ur, POC 5.0 5.0 - 8.0 Protein, ur, POC Negative Negative Nitrite, ur, POC Negative Negative Leukocytes, ur, POC Trace(A) Negative Lot Number 0 Urine 03/16/2020 8:25 AM CDT Jr Verde MD POINT OF CARE TEST ORDER DONELL Final Result documented in this encounter Visit Diagnoses Diagnosis Kidney stone on left side Hydronephrosis, unspecified hydronephrosis type Kidney stone on left side documented in this encounter Orders Outpatient Referral Count Last Ordered Date Fir st Ordered Date AMB REFERRAL TO UROLOGY 1 03/16/2020 documented in this encounter Care Teams Binman Relationship Specialty Start Date End Date Jayla Phoenix MD [address] [place] [address] PCP - General 08/07/17 documented as of this encounter
--- OUTSIDE RECORDS SUMMARY | 2024-08-23 08:08 | XMS_ITS | Encounter Summary ---
Author Organization [facility] Address [address] [place] [address] Phone Care Team Providers Care Nuclear Powerplant Mechanic Helper Name Role Phone Jayla Phoenix MD Primary Care Provider [phone] Encounter Details Date Type Department Care Team (Late st Contact Info) Description 03/29/2020 Telephone [facility] Gastroenterology [address] [facility] [address] Office [address] [place] [address] Isabel Chang CMA Social History Tobacco Use Types Packs/Day Years Used Date Smoking Tobacco: Former Cigarettes 1.5 9 1 994 - 2002 Smokeless Tobacco: Never Alcohol Use Standard Drinks/Week Comments Not Currently 0 (1 standard drink = 0.6 oz pur e alcohol) Sex and Gender Information Value Date Recorded Sex Assigned at Not on file 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 documented in this encounter Plan of Treatment Not on file documented as of this encounter Visit Diagnoses Not on filedocumented in this encounter Care Teams Nuclear Powerplant Mechanic Helper Relationship Specialty Start Date End Date Jayla Phoenix MD [address] [place], [place] [id number] PCP - General 08/07/17 documented as of this encounter
--- OUTSIDE RECORDS SUMMARY | 2024-08-23 08:08 | XMS_ITS | Encounter Summary ---
Author Organization [facility] Address [address] [place] [address] Care Team Providers Care Lawn Mower Sharpener Name Role Phone Jayla Phoenix MD Primary Care Provider + [phone] Reason for Referral * Diagnostic Imaging (Routine) - Closed Specialty Diagnoses / Procedures Referred By Elina senior Referred To Contact Diagnoses Kidney stone on left side Procedures US Kidney Complete Jr Verde MD Phone: tel: fax: [place] [phone] [place] [phone] Referral ID Status Reason Start Date Expiration Date Visits Re quested Visits Authorized [id number] Closed 03/16/2020 04/15/2021 1 1 Reason for Visit * Diagnostic Imaging (Routine) - Closed Specialty Diagnoses / Procedures Referred By Elina senior Referred To Contact Diagnoses Kidney stone on left side Procedures US Kidney Complete Jr Verde MD Phone: tel: fax: [place] [phone] [place] [phone] Referral ID Status Reason Start Date Expiration Date Visits Re quested Visits Authorized [id number] Closed 03/16/2020 04/15/2021 1 1 Encounter Details Date Type Department Care Team (Latest Contact Info) Description 03/23/2020 9:08 AM CDT - 03/23/2020 11:59 PM CDT Hospital Encounter [id number] [address] [facility] [address] [place] [address] Jr Verde MD [address] [place] [address] Kidney stone on left side Discharge Disposition: Discharge to home or self [...] on file 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 Gender Identity Male 02/04/2019 10:52 AM CDT Sexual Orientation Straight 02/04/2019 10 :52 AM CDT documented as of this encounter Medications at Time of Discharge cyanocobalamin, vitamin B-12, 5,000 mcg tablet, sublingualIndica tions:Prevention of Vitamin B12 Deficiency Place 1 tablet under the tongue marshmallow machine operator before breakfast losartan-hydroch lorothiazide (HYZAAR) 100-25 mg per tabletIndication s:hypertension Take 1 tablet by mouth nightly 02/23/2019 multivitamin capsuleIndicatio ns:Vitamin Deficiency Prevention Take 1 capsule by mouth marshmallow machine operator before breakfast cholestyramine-a spartame 4 gram [...] COMPLETE Schedule Routine, Read Routine (OP Routine) 03/23/2020 10:30 AM CDT Kidney stone on left side [...] Brandon Cabezas M.D. us Jr Verde MD IMG US PROCEDURES Final Result documented in this encounter Visit Diagnoses Diagnosis Kidney stone on left side documented in this encounter Care Teams Lawn Mower Sharpener Relationship Specialty Start Date End Date Jayla Phoenix MD [address] [place] [address] PCP - General 08/07/17 documented as of this encounter
--- OUTSIDE RECORDS SUMMARY | 2024-08-23 08:08 | XMS_ITS | Encounter Summary ---
Author Organization [facility] Address [address] [place] [address] Phone Care Team Providers Care Case Supervisor Name Role Phone Jayla Phoenix MD Primary Care Provider [phone] Encounter Details Date Type Department Care Team (Late st Contact Info) Description 03/15/2020 Telephone [facility] ([facility]) - [facility] Urology [address] [facility] Advanced Medicine 11th [place] [address] [place] [address] Diana Calles Social History Tobacco Use Types Packs/Day Years Used Date Smoking Tobacco: Former Cigarettes 1.5 9 1 994 - 2003 Smokeless Tobacco: Never Alcohol Use Standard Drinks/Week Comments Not Currently 0 (1 standard drink = 0.6 oz pur e alcohol) Sex and Gender Information Value Date Recorded Sex Assigned at Not on file 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
--- OUTSIDE RECORDS SUMMARY | 2024-08-23 08:08 | XMS_ITS | Encounter Summary ---
Author Organization [facility] Address [address] [place] [address] Phone Care Team Providers Care Outbound Sales Professional Name Role Phone Jayla Phoenix MD Primary Care Provider [phone] Encounter Details Date Type Department Care Team (Late st Contact Info) Description 03/11/2020 Orders Only [facility] Gastroenterology [address] [facility] Advanced Medicine 8th [place] [address] [place] [address] Corbin Dquue MD [address] [place] [address] Social History Tobacco Use Types Packs/Day Years Used Date Smoking Tobacco: Former Cigarettes 1.5 9 1 994 - 2002 Smokeless Tobacco: Never Alcohol Use Standard Drinks/Week Comments Not Currently 0 (1 standard drink = 0.6 oz pur e alcohol) Sex and Gender Information Value Date Recorded Sex Assigned at Not on file 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
--- OUTSIDE RECORDS SUMMARY | 2024-08-23 08:08 | XMS_ITS | Encounter Summary ---
Author Organization [facility] Address [address] [place] [address] Phone Care Team Providers Care Clerical Secretary Name Role Phone Jayla Phoenix MD Primary Care Provider [phone] Reason for Referral * Diagnostic Imaging (Routine) - Closed Specialty Diagnoses / Procedures Referred By Elina senior Referred To Contact Radiology Diagnoses Nephrolithiasis Procedures CT Renal Stone Jr Verde MD Phone: tel: fax: [address] [address] Referral ID Status Reason Start Date Expiration Date Visits Re quested Visits Authorized [id number] Closed 03/24/2020 04/22/2020 1 1 Reason for Visit * Consultation (Routine) - Closed Specialty Diagnoses / Procedures Referred By Elina senior Referred To Contact Urology Diagnoses Kidney stone on left side Hydronephrosis with ureteropelvic junction (UPJ) obstruction Corbin Duque MD [address] [place] [address] Phone: tel: fax: [facility] (All Locations) Referral ID Status Reason Start Date Expiration Date V isits Requested Visits Authorized [id number] Closed Specialty Services Required 03/02/2020 09/11/2021 99 99 Encounter Details Date Type Department Care Team (Latest Contact Info) Description 03/23/2020 2:20 PM CDT Telemedicine [facility] Urology [address] [facility] Medical Office [address] [place] [address] Jr Verde MD [address] [place] [address] Nephrolithiasis (Primary Dx) Social History Tobacco Use Types Packs/Day Years Used Date Smoking Tobacco: Former Cigarettes 1.5 9 1 994 - 2002 Smokeless Tobacco: Never Alcohol Use Standard Drinks/Week Comments Not Currently 0 (1 standard drink = 0.6 oz pur e alcohol) Sex and Gender Information Value Date Recorded Sex Assigned at Not on file 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 This was a telemedicine visit with Kristian Vasques alone which took place via Telephone. During the visit, I was located at home and the patient was located at home in the state of [place]. The patient visit started at 1420 and ended at 1429. Please note 14 minutes were spent in the direct care of this patient, of which 9 minutes were spentin [id number] consultation via real-time audio/video conferencing. Additional 5 minutes were spent in documentation and arranging follow up tests. . The patient: has been informed that the visit may not be secure and acknowledged the information. The option of participating in a telephone or video visit during the [facility] public health emergencywas explained to them. After being given an opportunity to ask questions about and discuss this type of visit, they verbally consented to proceeding with the telephone/video visit and understand thatthis service replaces an office visit. Jr Verde MD Urology Clinic Note Subjective Chief complaint: nephrolithiasis History of present illness: Kristian Vasques is a 49 y.o. male with left hydronephrosis, no flank pain, and MRI imaging suggesting UPJ stone. He has completed US imaging, which is negative for UPJ/ureteral stone blocking. Hydronephrosis was identified. He denies any flank pain, and has previously pa ssed stone episodes in past. Lab/Radiology/Diagnostic Review: I have independently reviewed the images of the study described below, and agree with the impression as dictated. Renal US 03/23/20 IMPRESSION: 1. Moderate left hydronephrosis. No ureteral stone was identified, however the ureter was visualized in its entirety. ?? 2. Bilateral nephrolithiasis up to 16 mm in diameter Creatine (available in media, 1.22, GFR >60) Additional Labs: I have reviewed the following [...] Vasques is a 49 y.o. male with left hydronephrosis, bilateral nephrolithiasis, recentlyhad renal US which could not rule out obstructive ureteral stone. Patient is agreeable to CT renal stone imaging and return for telemedicine visit in 1 week to discuss results. - CT stone protocol -RTC next week telemedicine There are no Patient Instructions on file for this visit. documented in this encounter Plan of Treatment Not on file documented as of this encounter Results * CT Renal Stone [...] Cabezas M.D. us Jr Verde MD IMG CT PROCEDURES Final Result documented in this encounter Visit Diagnoses Diagnosis Nephrolithiasis- Primary Calculus of kidney Nephrolithiasis Calculus of kidney documented in this encounter Care Teams Clerical Secretary Relationship Specialty Start Date End Date Jayla Phoenix MD [address] [place] [address] PCP - General 08/07/17 documented as of this encounter
--- OUTSIDE RECORDS SUMMARY | 2024-08-23 08:08 | XMS_ITS | Encounter Summary ---
Author Organization [facility] Healthcare Address [address] [place] [address] Care Team Providers Care Martial Arts Instructor Name Role Phone Jayla Phoenix MD Primary Care Provider + [phone] Reason for Referral * Diagnostic Imaging (Routine) - Closed Specialty Diagnoses / Procedures Referred By Contac t Referred To Contact Diagnoses Fusion of spine of cervical region Procedures XR Spine Cervical W Flexion And Extension 6 or More Views Gabriel Horner MD Phone: tel: fax: [place] [phone] [place] [phone] Referral ID Status Reason Start Date Expiration Date Visits Re quested Visits Authorized [id number] Closed 02/22/2020 09/02/2021 1 1 Reason for Visit * Diagnostic Imaging (Routine) - Closed Specialty Diagnoses / Procedures Referred By Elina senior Referred To Contact Diagnoses Fusion of spine of cervical region Procedures XR Spine Cervical W Flexion And Extension 6 or More Views Gabriel Horner MD Phone: tel: fax: [place] [address] [place] [phone] Referral ID Status Reason Start Date Expiration Date Visits Re quested Visits Authorized [id number] Closed 02/22/2020 09/02/2021 1 1 Encounter Details Date Type Department Care Team (Latest Contact Info) Description 02/24/2020 10:19 AM CDT - 02/24/2020 11:59 PM CDT Hospital Encounter [id number]iology [address] [facility] [address] [place] [address] Gabriel Horner MD [address] [facility] [address] [address] [place] [address] Fusion of spine of cervical region Discharge [...] on file 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 Gender Identity Male 02/04/2019 10:52 AM CDT Sexual Orientation Straight 02/04/2019 10 :52 AM CDT documented as of this encounter Medications at Time of Discharge cyanocobalamin, vitamin B-12, 5,000 mcg tablet, sublingualIndica tions:Prevention of Vitamin B12 Deficiency Place 1 tablet under the tongue hard metals hand engraver before breakfast losartan-hydroch lorothiazide (HYZAAR) 100-25 mg per tabletIndication s:hypertension Take 1 tablet by mouth nightly 02/23/2019 multivitamin capsuleIndicatio ns:Vitamin Deficiency Prevention Take 1 capsule by mouth hard metals hand engraver before breakfast cholestyramine-a spartame 4 gram powderIndication [...] Priority Date/Time Associated Diagnosis Comments XR SPINE CERVICAL W FLEXION AND EXTENSION 6 OR MORE VIEWS Schedule Routine, Read Routine (OP Routine) 02/24/2020 10:33 AM CDT Fusion of spine of cervical region documented in this encounter Results * XR Spine Cervical W Flexion And Extension 6 or More Views (02/24/2020 10:33 AM CDT) Anatomical Region Laterality Modality Spine N/A Computed Radiogr aphy 02/24/2020 11:2 3 AM CDT Impressions 02/24/2020 12:10 PM CDT C5-C7 anterior decompression and fusion with solid arthrodesis at C5-C6, and pseudoarthrosis at C6-C7. ?? Dictated by: Johanne Adan M.D. The radiology attending physician has personally reviewed this study, and had reviewed and/or edited this written report and agrees with it. Electronically signed by: Tunde Rene M.D. Narrative 02/24/2020 12:10 PM CDT EXAMINATION: XR SPINE CERVICAL W FLEXION AND EXTENSION 6 OR MORE VIEWS HISTORY: Follow-up cervical fusion FINDINGS: 6 views of the cervical spine are submitted with comparison to prior radiographs dated 08/05/2019. There are postoperative changes of anterior combined discectomies from C5 to C7 with instrumented fusion from C6 to C7. Instrumentation remains intact with solid non-instrumented arthrodesis at C5-C6. ??There is mild mild angular excursion at C6-C7. The cervical spine is mildly kyphotic, centered at C5-C6. ??Mild degenerative disc disease is noted at C4-C5 and C7-T1. ??Vertebral body heights are normal. ??No evidence of fracture. ??Prevertebral soft tissues are normal. ??Neural foramina are patent. Procedure Note Tunde Rene MD - 02/24/2020 EXAMINATION: XR SPINE CERVICAL W FLEXION AND EXTENSION 6 OR MORE VIEWS HISTORY: Follow-up cervical fusion FINDINGS: 6 views of the cervical spine are submitted with comparison to prior radiographs dated 08/05/2019. There are postoperative changes of anterior combined discectomies from C5 to C7 with instrumented fusion from C6 to C7. Instrumentation remains intact with solid non-instrumented arthrodesis at C5-C6. There is mild mild angular excursion at C6-C7. The cervical spine is mildly kyphotic, centered at C5-C6. Mild degenerative disc disease is noted at C4-C5 and C7-T1. Vertebral body heights are normal. No evidence of fracture. Prevertebral soft tissues are normal. Neural foramina are patent. IMPRESSION: C5-C7 anterior decompression and fusion with solid arthrodesis at C5-C6, and pseudoarthrosis at C6-C7. Dictated by: Johanne Adan M.D. The radiology attending physician has personally reviewed this study, and had reviewed and/or edited this written report and agrees with it. Electronically signed by: Tunde Rene M.D. [facility] Chuck Horner MD IMG XR PROCEDURES Final Re sult documented in this encounter Visit Diagnoses Diagnosis Fusion of spine of cervical region documented in this encounter Care Teams Martial Arts Instructor Relationship Specialty Start Date End Date Jayla Phoenix MD [address] [place] [address] PCP - General 08/07/17 documented as of this encounter
--- OUTSIDE RECORDS SUMMARY | 2024-08-23 08:08 | XMS_ITS | Encounter Summary ---
Author Organization [facility] Address [address] [place] [address] Phone Care Team Providers Care Slasher Runner Name Role Phone Jayla Phoenix MD Primary Care Provider [phone] Reason for Referral * Diagnostic Imaging (Routine) - Closed Specialty Diagnoses / Procedures Referred By Contac t Referred To Contact Diagnoses Fusion of spine of cervical region Procedures XR Spine Cervical W Flexion And Extension 6 or More Views Gabriel Horner MD Phone: tel: fax: [address] [address] Referral ID Status Reason Start Date Expiration Date Visits Re quested Visits Authorized [id number] Closed 02/22/2020 09/02/2021 1 1 Reason for Visit * Reason Comments Return Patient Encounter Details Date Type Department Care Team (Late st Contact Info) Description 02/24/2020 10:40 AM CDT Office Visit [facility] Orthopaedic Surgery [facility] [address] [place] [address] Gabriel Horner MD [address] [address] Fusion of spine of cervical region (Primary Dx); Cervical radiculopathy; Lumbar radiculopathy Social History Tobacco Use Types Packs/Day Years Used Date Smoking Tobacco: Former Cigarettes 1.5 9 1 994 - 2002 Smokeless Tobacco: Never Alcohol Use Standard Drinks/Week Comments Not Currently 0 (1 standard drink = 0.6 oz pur e alcohol) Sex and Gender Information Value Date Recorded Sex Assigned at Not on file 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 Gender Identity Male 02/04/2019 10:52 AM CDT Sexual Orientation Straight 02/04/2019 10 :52 AM CDT documented as of this encounter Last Filed Vital Signs Vital Sign Reading Time Taken Comments Blood Pressure - - Pulse - - Temperature - - Respiratory Rate - - Oxygen Saturation - - Inhaled Oxygen Concentration - - Weight 93 kg (205 lb) 02/24/2020 10:39 AM CDT Height 188 cm (6' 2 ) 02/24/2020 10:39 AM CDT Body Mass Index 26.32 02/24/2020 10:39 AM CDT documented in this encounter Progress Notes * Evangelista Martin MD - 02/24/2020 10:40 AM CDT ORTHOPAEDIC SURGERY SPINE SERVICE ESTABLISHED PATIENT Patient: Kristian Vasques : 1970 Date of Service: 02/24/2020 PCP: Jayla Phoenix MD DATE OF VISIT: 02/24/2020 PROCEDURE / DATE: C6-C7 ACDF / 02/16/2019 HISTORY OF PRESENT ILLNESS: Kristian Vasques is a 49 y.o. male who presents for routine postoperative follow-up now about 12 months status post C6-C7 ACDF with a history of a C5-C6 ACDF. He reports since his last follow-up he has been doing well with occasional neck stiffness and soreness, mostly at night. He still has his preoperative right C6 paresthesias in his hand. He occasionally takes some [id number] pain control medications. He denies any changes in his balance. He denies any bowel or bladder complaints. NDI6. ROSANNE 16/17. He does report left anterior thigh numbness with paresthesias along the posterolateral thigh, anterior leg and into the top of the foot. This has been present for the past year but he is noticing it more now since his cervical issues have resolved. He describes the feeling as restless leg syndrome,worse in the left than the right. He denies any weakness but says his tells and he looks like he is dragging his leg occasionally. He denies any saddle anesthesia. REVIEW OF SYSTEMS: A thorough review of systems was performed per the patients general health questionnaire. All systems are negative except for history of present illness per patient questionnaire. MEDICATIONS: Prior to Admission medications Medication Sig Start Date End Date Taking? Authorizing Provider cyanocobalamin, vitamin B-12, 5,000 mcg tablet, sublingual Place under the tongue Yes Historical Provider, losartan-hydrochlorothiazide (HYZAAR) 100-25 mg per tablet 02/23/19 Yes Historical Provider, multivitamin capsule Take 1 capsule by mouth daily Yes Historical Provider, cholestyramine-aspartame 4 gram powder every morning 09/18/10 Historical Provider, losartan (COZAAR) 25 mg tablet 75 mg nightly 08/05/19 Historical Provider, ALLERGIES: Allergies Allergen Reactions ??? Iodinated Contrast Media Rash PHYSICAL EXAM: General: NAD, well-developed well-nourished Psychiatric: Normal mood and affect. Spine: Well-healed anterior neck incision. No pain with neck flexion, extension, axial rotation, lateral bending. No appreciable muscular atrophy. Nontender, and painless ROM shoulders, elbow, wrist, digits. Normal muscular tone. Motor: He has full 5/5 strength in bilateral upper and lower extremities Sensation Left upper extremity: sensation intact to light touch in C5 to T1 dermatomes. Right upper extremity: sensation intact to light touch in C5 to T1 dermatomes with paresthesias in the right index finger and thumb. Reflexes: Left Upper Extremity: 2+ biceps (C5), 2+ brachioradialis (C6), 2+ triceps (C7). Right Upper Extremity: 2+ biceps (C5), 2+ brachioradialis (C6), 2+ triceps (C7). Left Lower Extremity: 3+patellar tendon (L4), achilles (S1) Right Lower Extremity: 3+patellar tendon (L4), achilles (S1) Gait: Unassisted nonantalgic with stable heel-toe tandem gait. Long-tract signs: Positive Rivera's on the right No clonus Negative Romberg Vascular: Bilateral Upper Extremity: fingers [facility] LABORATORY & IMAGING: Patient's x-rays obtained today show the prior fusion at C5-6 as well as intact instrumentation at C6-7. There is nonunion at this level with no apparent bony fusion. There is no evidence of instrumentation loosening or gross motion of the spine at this level. ASSESSMENT AND PLAN: Kristian Vasques is a 49 y.o. male who presents for routine post-operative follow-up now 12 months status-post C6-C7 ACDF with some neck stiffness and continued mild right C6 parasthesia. He is also now complaining of left thigh numbness with paresthesias down into the top of the foot. For the cervical spine, given the patient's lack of significant symptomatology with no affect on his ability to perform desire activities, there is no treatment indicated at this time. We will continue to observe him and obtain a repeat x-ray of the cervical spine in 1 year. If he develops any worsening neck pain or arm symptoms he should call our office and we will see him sooner. Otherwise he can follow up in 1 year. We also discussed his lumbar spine and left leg symptoms. These are not very troublesome to him andhe does not think it is worth performing a workup at this time. He will call our office or obtain alumbar spine MRI from his PCP should he develop any worsening left leg symptoms. Follow-up in 1 year with XR cervical spine and XR lumbar spine if symptomatic. ATTENDING ADDENDUM The patient was seen and examined with the spine fellow, and I agree with the above assessment and plan. Gabriel Horner MD Clinical Marketing Manager [facility] Orthopedics Spine Surgery Division documented in this encounter Plan of Treatment Not on file documented as of this encounter Results * XR Spine Cervical [...] it. Electronically signed by: Tunde Rene M.D. [facility] 02/24/2020 12:10 PM CDT EXAMINATION: XR SPINE [...] it. Electronically signed by: Tunde Rene M.D. Gabriel Chuck Horner MD IMG XR PROCEDURES Final Re sult documented in this encounter Visit Diagnoses Diagnosis Fusion of spine of cervical region- Primary Cervical radiculopathy Brachial neuritis or radiculitis nos Lumbar radiculopathy Thoracic or lumbosacral neuritis or radiculitis, unspecified Fusion of spine of cervical region documented in this encounter Care Teams Slasher Runner Relationship Specialty Start Date End Date Jayla Phoenix MD [address] [place] [address] PCP - General 08/07/17 documented as of this encounter
--- OUTSIDE RECORDS SUMMARY | 2024-08-23 08:08 | XMS_ITS | Encounter Summary ---
Author Organization [facility] Address [address] [address] [place] [address] Phone Care Team Providers Care University Counselor Name Role Phone Jayla Phoenix MD Primary Care Provider [phone] Encounter Details Date Type Department Care Team (Late st Contact Info) Description 03/24/2020 Telephone 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 Voicemail left for patient to contact the office at [phone]. * Telephone Encounter - Marysol Go RMA - 03/24/2020 8:21 AM CDT ----- Message from Jr Verde MD sent at 03/23/2020 2:31 PM CDT ----- Regarding: CT scan telemedicine follow up Hi Please call patient to schedule CT renal stone and telemedicine follow up with me in 1 week Thank you Jr documented in this encounter Plan of Treatment Not on file documented as of this encounter Visit Diagnoses Not on filedocumented in this encounter Care Teams University Counselor Relationship Specialty Start Date End Date Jayla Phoenix MD [address] [place] [address] PCP - General 08/07/17 documented as of this encounter
--- OUTSIDE RECORDS SUMMARY | 2024-08-23 08:08 | XMS_ITS | Encounter Summary ---
Author Organization [facility] Address [address] [place] [address] Phone Care Team Providers Care Jewelry Maker Name Role Phone Jayla Phoenix MD Primary Care Provider [phone] Reason for Visit * Reason Onset Date Comments Lab Results 03/22/2020 Encounter Details Date Type Department Care Team (Late st Contact Info) Description 03/22/2020 Documentation [facility] Gastroenterology [address] [facility] Medicine 8th [place] [address] [place] [address] Michelle Hazel fountain roller assembler Results Social History Tobacco Use Types Packs/Day Years Used Date Smoking Tobacco: Former Cigarettes 1.5 9 1 994 - 2003 Smokeless Tobacco: Never Alcohol Use Standard Drinks/Week Comments Not Currently 0 (1 standard drink = 0.6 oz pur e alcohol) Sex and Gender Information Value Date Recorded Sex Assigned at Not on file 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 Both done at [facility]. Will add 50,000IU vitamin D weekly x 8 weeks then recheck documented in this encounter Plan of Treatment Not on file documented as of this encounter Visit Diagnoses Not on filedocumented in this encounter Care Teams Jewelry Maker Relationship Specialty Start Date End Date Jayla Phoenix MD [address] [place] [id number] PCP - General 08/07/17 documented as of this encounter
--- OUTSIDE RECORDS SUMMARY | 2024-08-23 08:08 | XMS_ITS | Encounter Summary ---
Author Organization [facility] Address [address] [place] [address] Phone Care Team Providers Care Grants Director Name Role Phone Jayla Phoenix MD Primary Care Provider [phone] Encounter Details Date Type Department Care Team (Late st Contact Info) Description 03/03/2020 Telephone [facility] Gastroenterology [address] [facility] 8th [place] [address] [place] [address] Bart Armendariz CMA Social History Tobacco Use Types Packs/Day Years Used Date Smoking Tobacco: Former Cigarettes 1.5 9 1 994 - 2003 Smokeless Tobacco: Never Alcohol Use Standard Drinks/Week Comments Not Currently 0 (1 standard drink = 0.6 oz pur e alcohol) Sex and Gender Information Value Date Recorded Sex Assigned at Not on file 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 I sent rx in. Thank you documented in this encounter Plan of Treatment Not on file documented as of this encounter Visit Diagnoses Not on filedocumented in this encounter Care Teams Grants Director Relationship Specialty Start Date End Date Jayla Phoenix MD [address] [place], [place] [id number] PCP - General 08/07/17 documented as of this encounter
--- OUTSIDE RECORDS SUMMARY | 2024-08-23 08:08 | XMS_ITS | Encounter Summary ---
Author Organization [facility] Address [address] [place] [address] Phone Care Team Providers Care Director Of Clinical Trials Name Role Phone Jayla Phoenix MD Primary Care Provider [phone] Reason for Visit * Reason Onset Date Comments COVID TESTING 03/03/2020 COVID testing do ne on 03.31.2020 at [facility] for Procedure Encounter Details Date Type Department Care Team (Late st Contact Info) Description 03/03/2020 Telephone [facility] Gastroenterology [facility] Medicine 8th [place] [address] [place] [address] Bart Armendariz CMA COVID TESTING (COVID testing done on 03.31.2020 at [facility] for Procedure) Social History Tobacco Use Types Packs/Day Years Used Date Smoking Tobacco: Former Cigarettes 1.5 9 1 994 - 2003 Smokeless Tobacco: Never Alcohol Use Standard Drinks/Week Comments Not Currently 0 (1 standard drink = 0.6 oz pur e alcohol) Sex and Gender Information Value Date Recorded Sex Assigned at Not on file 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; [place] [address] documented in this encounter Plan of Treatment Not on file documented as of this encounter Visit Diagnoses Not on filedocumented in this encounter Care Teams Director Of Clinical Trials Relationship Specialty Start Date End Date Jayla Phoenix MD [address] [place] [address] PCP - General 08/07/17 documented as of this encounter
--- OUTSIDE RECORDS SUMMARY | 2024-08-23 08:08 | XMS_ITS | Encounter Summary ---
Author Organization [facility] Address [address] [place] [address] Phone Care Team Providers Care Chartered Accountant Name Role Phone Jayla Phoenix MD Primary Care Provider Encounter Details Date Type Department Care Team (Late st Contact Info) Description 03/14/2020 Orders Only [facility] Gastroenterology [address] [facility] Medicine 8th [place] [address] [place] [address] Corbin Duque MD [address] [place] [address] Crohn's disease with complication, unspecified gastrointestinal tract location (CMS/HCC) (Primary Dx) Social History Tobacco Use Types Packs/Day Years Used Date Smoking Tobacco: Former Cigarettes 1.5 9 1 994 - 2003 Smokeless Tobacco: Never Alcohol Use Standard Drinks/Week Comments Not Currently 0 (1 standard drink = 0.6 oz pur e alcohol) Sex and Gender Information Value Date Recorded Sex Assigned at Not on file 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 I don't see one in the chart and want to make sure it is taken care of. Thanks! documented in this encounter Plan of Treatment Not on file documented as of this encounter Visit Diagnoses Diagnosis Crohn's disease with complication, unspecified gastrointestinal tract location (HCC)- Primary documented in this encounter Orders Procedures Count Last Ordered Date First Orde red Date [facility] OUTPATIENT FACILITY ORDERS 1 020 documented in this encounter Care Teams Chartered Accountant Relationship Specialty Start Date End Date Jayla Phoenix MD [address] [place], [place] [id number] PCP - General 08/07/17 documented as of this encounter
--- OUTSIDE RECORDS SUMMARY | 2024-08-23 08:08 | XMS_ITS | Encounter Summary ---
Author Organization [facility] Address [address] [place] [address] Phone Care Team Providers Care Senior Linux Systems Engineer Name Role Phone Jayla Phoenix MD Primary Care Provider [phone] Encounter Details Date Type Department Care Team (Late st Contact Info) Description 03/17/2020 Telephone [facility] Gastroenterology [address] 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 As long as there is his signature on there. ----- Message ----- From: Michelle Hazel RN Sent: 03/17/2020 10:13 AM CDT To: Bart Armendariz CMA Did she happen to mention if electronic signature is OK? I cant stamp it ----- Message ----- From: Bart Armendariz CMA Sent: 03/15/2020 11:43 AM CDT To: Michelle Hazel RN Odilia called back and said they will co sign for the orders. Please fax the signed orders to her at [phone] and she will get her doctor to sign for them and then fax it to the infusion center to schedule. She stated to please put it to her attention. Thank you, Tyesha Orders, TB test and insurance information plus demographics sheet faxed over to Dr. Phoenix's office documented in this encounter Plan of Treatment Not on file documented as of this encounter Visit Diagnoses Not on filedocumented in this encounter Care Teams Senior Linux Systems Engineer Relationship Specialty Start Date End Date Jyala Phoenix MD [address] [place] [address] PCP - General 08/07/17 documented as of this encounter
--- OUTSIDE RECORDS SUMMARY | 2024-08-23 08:08 | XMS_ITS | Encounter Summary ---
Author Organization [facility] Address [address] [place] [address] Phone Care Team Providers Care Watch Caser Name Role Phone Jayla Phoenix MD Primary Care Provider [phone] Reason for Visit * Reason Onset Date Comments Lab Results 03/11/2020 Encounter Details Date Type Department Care Team (Late st Contact Info) Description 03/11/2020 Documentation 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 Vitamin D is listed as pending. documented in this encounter Plan of Treatment Not on file documented as of this encounter Visit Diagnoses Not on filedocumented in this encounter Care Teams Watch Caser Relationship Specialty Start Date End Date Jayla Phoenix MD [address] [place] [id number] PCP - General 08/07/17 documented as of this encounter
--- OUTSIDE RECORDS SUMMARY | 2024-08-23 08:08 | XMS_ITS | Encounter Summary ---
Author Organization [facility] Address [address] [place] [address] Phone Care Team Providers Care Distribution Systems Serviceperson Name Role Phone Jayla Phoenix MD Primary Care Provider [phone] Encounter Details Date Type Department Care Team (Late st Contact Info) Description 03/22/2020 Orders Only [facility] Gastroenterology [address] [facility] Advanced Medicine 8th [place] [address] [place] [address] Corbin Duque MD [address] [place] [address] Social History Tobacco Use Types Packs/Day Years Used Date Smoking Tobacco: Former Cigarettes 1.5 9 1 994 - 2002 Smokeless Tobacco: Never Alcohol Use Standard Drinks/Week Comments Not Currently 0 (1 standard drink = 0.6 oz pur e alcohol) Sex and Gender Information Value Date Recorded Sex Assigned at Not on file 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 Gender Identity Male 02/04/2019 10:52 AM CDT Sexual Orientation Straight 02/04/2019 10 :52 AM CDT documented as of this encounter Ordered Prescriptions Prescription Sig Dispense Quantity Refills Last Filled Start Date End Date ergocalciferol (VITAMIN D) 50,000 unit capsule Take 1 capsule (50,000 Units total) by mouth once a week 4 capsule 1 03/22/2020 0 documented in this encounter Plan of Treatment Not on file documented as of this encounter Visit Diagnoses Not on filedocumented in this encounter Care Teams Distribution Systems Serviceperson Relationship Specialty Start Date End Date Jayla Phoenix MD [address] [place] [address] PCP - General 08/07/17 documented as of this encounter
--- OUTSIDE RECORDS SUMMARY | 2024-08-23 08:08 | XMS_ITS | Encounter Summary ---
Author Organization [facility] Address [address] [place] [address] Phone Care Team Providers Care Technical Support Internship Name Role Phone Jayla Phoenix MD Primary Care Provider [phone] Reason for Referral * Consultation (Routine) - Closed Specialty Diagnoses / Procedures Referred By Contac t Referred To Contact Urology Diagnoses Kidney stone on left side Hydronephrosis with ureteropelvic junction (UPJ) obstruction Corbin Duque MD [address] [place] [address] Phone: tel: fax: [facility] (All Locations) Referral ID Status Reason Start Date Expiration Date V isits Requested Visits Authorized [id number] Closed Specialty Services Required 03/02/2020 09/11/2021 99 99 Question Answer Please select the performing region: [facility] (All Locations) [167] # of visits: 1 Comments Left obstructing kidney stone, hydronephrosis Encounter Details Date Type Department Care Team (Late st Contact Info) Description 03/02/2020 Orders Only [facility] Gastroenterology [address] [facility] Medical Office Building [address] [place] [address] Corbin Duque MD [address] [place] [address] Kidney stone on left side (Primary Dx); Hydronephrosis with ureteropelvic junction (UPJ) obstruction Social History Tobacco Use Types Packs/Day Years Used Date Smoking Tobacco: Former Cigarettes 1.5 9 1 994 - 2002 Smokeless Tobacco: Never Alcohol Use Standard Drinks/Week Comments Not Currently 0 (1 standard drink = 0.6 oz pur e alcohol) Sex and Gender Information Value Date Recorded Sex Assigned at Not on file 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 Gender Identity Male 02/04/2019 10:52 AM CDT Sexual Orientation Straight 02/04/2019 10 :52 AM CDT documented as of this encounter Plan of Treatment Scheduled Referrals Name Type Priority Associated Diagnoses Orde r Schedule Ambulatory referral to Urology Outpatient Referral Routine Kidney stone on left side Hydronephrosis with ureteropelvic junction (UPJ) obstruction Expected: 03/09/2020 (Approximate), Expires: 03/02/2021 documented as of this encounter Visit Diagnoses Diagnosis Kidney stone on left side- Primary Hydronephrosis with ureteropelvic junction (UPJ) obstruction documented in this encounter Care Teams Technical Support Internship Relationship Specialty Start Date End Date Jayla Phoenix MD [facility] [place] [address] PCP - General 08/07/17 documented as of this encounter
--- OUTSIDE RECORDS SUMMARY | 2024-08-23 08:08 | XMS_ITS | Encounter Summary ---
Author Organization [facility] Address [address] [place] [address] Phone Care Team Providers Care Distribution District Supervisor Name Role Phone Jayla Phoenix MD Primary Care Provider [phone] Encounter Details Date Type Department Care Team (Late st Contact Info) Description 03/03/2020 Telephone [facility] Gastroenterology [address] [facility] Medical Office [address] [place] [address] Corbin Duque MD [address] [place] [address] Social History Tobacco Use Types Packs/Day Years Used Date Smoking Tobacco: Former Cigarettes 1.5 9 1 994 - 2003 Smokeless Tobacco: Never Alcohol Use Standard Drinks/Week Comments Not Currently 0 (1 standard drink = 0.6 oz pur e alcohol) Sex and Gender Information Value Date Recorded Sex Assigned at Not on file 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 Need another liver panel to see what direction these are going. Would get a FC so we may have a biomarker we can follow. Needs a colon but would get him in to me for TM so we can discuss the Crohn's side of things and will try to get him Stelara. [place] will be back up. I suspect it could be hard sell as he has gone years on inadequate meds if the story is straight. Also needs b12 and Vit D as well. I suspect he will need a cysto and stone extraction. So get a bmp as well just in case he bumped his Cr. In general the fistula is not an issue as it was not a free wall perforation. 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 I am surprised he isn't complaining of renal colic Let me know. So in summary: 1. Urology 2. FC, b12, Vit d and liver panel as well as bmp. That way I get the direct bili as well just in case. Steatosis was not called on the MRE 3. Will need hepatitis and TB as will start biologic 4. Colon with me Will need Crohn's brochure, medication brochure and [employer] membership. ----- Message ----- From: Michelle Hazel RN Sent: 03/02/2020 5:34 PM CDT To: Corbin Duque MD, Stefany Zuniga NP Please see imaging from Saturday Spoke with Kristian and will get labs locally at [facility] (orders faxed). He is aware of findings and is amenable to urology referral (made yesterday) and colon (scheduled for at ) plus starting biologic eventually. Will need TM as well. documented in this encounter Plan of Treatment Not on file documented as of this encounter Visit Diagnoses Not on filedocumented in this encounter Care Teams Distribution District Supervisor Relationship Specialty Start Date End Date Jayla Phoenix MD [address] [place] [address] PCP - General 08/07/17 documented as of this encounter
--- OUTSIDE RECORDS SUMMARY | 2024-08-23 08:08 | XMS_ITS | Encounter Summary ---
Author Organization 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 Gender Identity Male 02/04/2019 10:52 AM CDT Sexual Orientation Straight 02/04/2019 10 :52 AM CDT documented as of this encounter Plan of Treatment Not on file documented as of this encounter Procedures Procedure Name Priority Date/Time Associated Diagnosis Comments SCAN - LABS 03/09/2020 documented in this encounter Results * SCAN - LABS (03/09/2020) us Provider Scanning Final Result documented in this encounter Visit Diagnoses Not on filedocumented in this encounter Care Teams Highway Construction Inspector Relationship Specialty Start Date End Date Jayla Phoenix MD [address] [place] [address] PCP - General 08/07/17 documented as of this encounter
--- OUTSIDE RECORDS SUMMARY | 2024-08-23 08:08 | XMS_ITS | Encounter Summary ---
Author Organization [facility] Address [address] [place] [address] Phone Care Team Providers Care Fishing Vessel Deckhand Name Role Phone Jayla Phoenix MD Primary Care Provider [phone] Reason for Visit * Reason Onset Date Comments Prior Auth 03/14/2020 Encounter Details Date Type Department Care Team (Late st Contact Info) Description 03/14/2020 Telephone [facility] Gastroenterology [address] [facility] Advanced Medicine 8th [place] [address] [place] [address] Corbin Duque MD [address] [place] [address] Prior Auth Social History Tobacco Use Types [...] on file 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 Gender Identity Male 02/04/2019 10:52 AM CDT Sexual Orientation Straight 02/04/2019 10 :52 AM CDT documented as of this encounter Miscellaneous Notes * Telephone Encounter - Nancy Mercado CPhT - 03/17/2020 10:19 AM CDT Stelara 90MG/ML syringes CaseId:[id number] Coverage Start Date:02/16/2020 Coverage End Date:06/15/2020 * Telephone Encounter - Michelle Hazel RN - 03/14/2020 6:03 PM CDT Stelara injections documented in this encounter Plan of Treatment Not on file documented as of this encounter Visit Diagnoses Not on filedocumented in this encounter Care Teams Fishing Vessel Deckhand Relationship Specialty Start Date End Date Jayla Phoenix MD [address] [place] [address] PCP - General 08/07/17 documented as of this encounter
--- OUTSIDE RECORDS SUMMARY | 2024-08-23 08:09 | XMS_ITS | Encounter Summary ---
Author Organization [facility] Address [address] [place] [address] Care Team Providers Care Welding Rod Coater Name Role Phone Jayla Phoenix MD Primary Care Provider [phone] Reason for Referral * Diagnostic Imaging (Routine) - Closed Specialty Diagnoses / Procedures Referred By Contac t Referred To Contact Diagnoses Fusion of spine of cervical region Procedures XR Spine Cervical 2 or 3 Views Gabriel Horner MD Phone: tel: fax: [facility] Referral ID Status Reason Start Date Expiration Date Visits Re quested Visits Authorized [id number] Closed 04/06/2019 10/15/2020 1 1 Reason for Visit * Diagnostic Imaging (Routine) - Closed Specialty Diagnoses / Procedures Referred By Contac t Referred To Contact Diagnoses Fusion of spine of cervical region Procedures XR Spine Cervical 2 or 3 Views Gabriel Horner MD Phone: tel: fax: [facility] Referral ID Status Reason Start Date Expiration Date Visits Re quested Visits Authorized [id number] Closed 04/06/2019 10/15/2020 1 1 Encounter Details Date Type Department Care Team (Latest Contact Info) Description 04/08/2019 11:15 AM CDT - 04/08/2019 11:59 PM CDT Hospital Encounter [facility] [address] [place] [address] Gabriel Horner MD [address] [facility] [address] [place] [address] Fusion of spine of cervical region Discharge [...] on file 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 Gender Identity Male 02/04/2019 10:52 AM CDT Sexual Orientation Straight 02/04/2019 10 :52 AM CDT documented as of this encounter Medications at Time of Discharge losartan-hydrochl orothiazide (HYZAAR) 100-25 mg per tabletIndications :hypertension Take 1 tablet by mouth nightly 02/23/2019 cholestyramine-as partame 4 gram powderIndications :for bowel resection every morning 09/18/2010 01/21/2020 losartan (COZAAR) 25 mg tabletIndications :hypertension 75 mg nightly 08/05/20 19 documented as of this encounter Discharge Disposition Disposition Code Departure Means Destination Discharge to home or self care documented in this encounter Plan of Treatment Not on file documented as of this encounter Procedures Procedure Name Priority Date/Time Associated Diagnosis Comments XR SPINE CERVICAL 2 OR 3 VIEWS Schedule Routine, Read Routine (OP Routine) 04/08/2019 11:29 AM CDT Fusion of spine of cervical region documented in this encounter Results * XR Spine Cervical 2 or 3 Views (04/08/2019 11:29 AM CDT) Anatomical Region Laterality Modality Spine N/A Computed Radiogr aphy 04/08/2019 12:0 0 PM CDT Impressions 04/08/2019 12:02 PM CDT Unchanged anterior instrumented cervical spinal fusion with discectomy at C6-C7 and interbody fusion of C5-C6 Dictated by: Tom Ross M.D. The radiology attending physician has personally reviewed this study, and had reviewed and/or edited this written report and agrees with it. Electronically signed by: Julia Lindquist MD Narrative 04/08/2019 12:02 PM CDT EXAMINATION: Cervical spine 2 or 3 views HISTORY: Cervical spondylosis FINDINGS: 2 views of the cervical spine including AP and lateral views are submitted for interpretation. ??Comparison is made to prior cervical spine radiographs dated 02/17/2019. Redemonstrated is anterior instrumented cervical spinal fusion with discectomy at C6-C7 and non-instrumented interbody fusion of C5-C6. There is no evidence of acute complication. ??Alignment of the cervical spine is normal. ??Vertebral body heights are preserved. There is no acute compression fracture. ??The intervertebral disc spaces at the nonfused segments are normal. ??There has been interval resolution of previous vertebral soft tissue swelling and gas. Surgical drain has been removed. ?? Procedure Note Joyce Lindquist MD - 04/08/2019 EXAMINATION: Cervical spine 2 or 3 views HISTORY: Cervical spondylosis FINDINGS: 2 views of the cervical spine including AP and lateral views are submitted for interpretation. Comparison is made to prior cervical spine radiographs dated 02/17/2019. Redemonstrated is anterior instrumented cervical spinal fusion with discectomy at C6-C7 and non-instrumented interbody fusion of C5-C6. There is no evidence of acute complication. Alignment of the cervical spine is normal. Vertebral body heights are preserved. There is no acute compression fracture. The intervertebral disc spaces at the nonfused segments are normal. There has been interval resolution of previous vertebral soft tissue swelling and gas. Surgical drain has been removed. IMPRESSION: Unchanged anterior instrumented cervical spinal fusion with discectomy at C6-C7 and interbody fusion of C5-C6 Dictated by: Tom Ross M.D. The radiology attending physician has personally reviewed this study, and had reviewed and/or edited this written report and agrees with it. Electronically signed by: Julia Lindquist MD Gabriel Horner MD IMG XR PROCEDURES Final Re sult documented in this encounter Visit Diagnoses Diagnosis Fusion of spine of cervical region documented in this encounter Care Teams Welding Rod Coater Relationship Specialty Start Date End Date Jayla Phoenix MD [address] [place] [id number] PCP - General 08/07/17 documented as of this encounter
--- OUTSIDE RECORDS SUMMARY | 2024-08-23 08:09 | XMS_ITS | Encounter Summary ---
Author Organization [facility] Address [address] [place] [address] Phone Care Team Providers Care Hot Pond Operator Name Role Phone Jayla Phoenix MD Primary Care Provider Encounter Details Date Type Department Care Team (Late st Contact Info) Description 01/25/2020 Orders Only [facility] Gastroenterology [address] [facility] Advanced Medicine 8th [place] [address] [place] [address] Corbin Duque MD [address] [place] [address] Crohn's disease of both small [...] on file 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 Gender Identity Male 02/04/2019 10:52 AM CDT Sexual Orientation Straight 02/04/2019 10 :52 AM CDT documented as of this encounter Ordered Prescriptions Prescription Sig Dispense Quantity Refills Last Filled Start Date End Date cholestyramine-aspa rtame 4 gram powderIndications:f or bowel resection Take 1 Scoop by mouth 2 (two) times a day 1 Can 1 01/25/2020 03/10/2020 documented in this encounter Plan of Treatment Not on file documented as of this encounter Visit Diagnoses Diagnosis Crohn's disease of both small and large intestine with complication (HCC) documented in this encounter Discontinued Medications Medication Sig Discontinue Reason Start Date End Da te cholestyramine-aspartame 4 gram powderIndications:for bowel resection Take 1 Scoop by mouth every morning Reorder 01/21/2020 01/25/2020 documented as of this encounter Care Teams Hot Pond Operator Relationship Specialty Start Date End Date Jayla Phoenix MD [address] [place] [address] PCP - General 08/07/17 documented as of this encounter
--- OUTSIDE RECORDS SUMMARY | 2024-08-23 08:09 | XMS_ITS | Encounter Summary ---
Author Organization [facility] Address [address] [place] [address] Phone Care Team Providers Care Charging Operator Name Role Phone Jayla Phoenix MD Primary Care Provider [phone] Reason for Referral * Diagnostic Imaging (Routine) - Closed Specialty Diagnoses / Procedures Referred By Contac t Referred To Contact Diagnoses Fusion of spine of cervical region Procedures XR Spine Cervical W Flexion And Extension 6 or More Views Gabriel Horner MD Phone: tel: fax: [facility] Referral ID Status Reason Start Date Expiration Date Visits Re quested Visits Authorized [id number] Closed 07/14/2019 01/22/2021 1 1 Y 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 SCHOOL 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 Reason for Visit * Reason Comments Return Patient Encounter Details Date Type Department Care Team (Late st Contact Info) Description 08/05/2019 11:00 AM EARLY 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 SCHOOL 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 Office Visit [facility] [address] [facility] 6th [place] [address] [place] [address] Gabriel Horner MD [address] [facility] [address] [place] [address] Fusion of spine of cervical region (Primary Dx); Cervical radiculopathy Social History Tobacco Use Types Packs/Day Years Used Date Smoking Tobacco: Former Cigarettes 1.5 9 1 994 - 2002 Smokeless Tobacco: Never Alcohol Use Standard Drinks/Week Comments Not Currently 0 (1 standard drink = 0.6 oz pur e alcohol) Sex and Gender Information Value Date Recorded Sex Assigned at Not on file Legal Sex Male 7:18 PM EARLY 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 SCHOOL 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 Gender Identity Male 02/04/2019 10:52 AM CDT Sexual Orientation Straight 02/04/2019 10 :52 AM CDT documented as of this encounter Last Filed Vital Signs Vital Sign Reading Time Taken Comments Blood Pressure - - Pulse - - Temperature - - Respiratory Rate - - Oxygen Saturation - - Inhaled Oxygen Concentration - - Weight 93 kg (205 lb) 08/05/2019 11:21 AM EARLY 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 SCHOOL 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 Height 188 cm (6' 2 ) 08/05/2019 11:21 AM EARLY 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 SCHOOL 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 Body Mass Index 26.32 08/05/2019 11:21 AM EARLY 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 SCHOOL 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 documented in this encounter Progress Notes * Gabriel Horner MD - 08/05/2019 11:00 AM CST ORTHOPAEDIC SURGERY SPINE SERVICE ESTABLISHED PATIENT Patient: Kristian Vasques : 1970 Date of Service: 08/05/2019 PCP: Jayla Phoenix MD DATE OF VISIT: 08/05/2019 PROCEDURE / DATE: C6-C7 ACDF / 02/16/2019 HISTORY OF PRESENT ILLNESS: Kristian Vasques is a 49 y.o. male who presents for routine postoperative follow-up now 6 months status post C6-C7 ACDF with a history of a C5-C6 ACDF. He reports since his last follow-up he has beendoing well with occasional neck stiffness soreness and resolving right C6 paresthesias. He is no longer taking narcotic meds medications are muscle relaxants. He occasionally takes some viwn-lyt-keqveop pain control medications. He denies any changes in his balance. He denies any bowel or bladder complaints. NDI 0. ROSANNE . REVIEW OF SYSTEMS: A thorough review of [...] elbow, wrist, digits. Normal muscular tone. Motor: Muscle Strength Left Right Deltoid 5/5 5/5 Biceps 5/5 5/5 Triceps 5/5 5/5 Wrist extension 5/5 5/5 Gutter Installer 5/5 5/5 Interosseous of hand 5/5 5/5 Sensation Left upper extremity: sensation intact to light touch in C5 to T1 dermatomes. Right upper extremity: sensation intact to light touch in C5 to T1 dermatomes. Reflexes: Left Upper Extremity: 2+ biceps (C5), 2+ brachioradialis (C6), 2+ triceps (C7). Right Upper Extremity: 2+ biceps (C5), 2+ brachioradialis (C6), 2+ triceps (C7). Left Lower Extremity: 3+patellar tendon (L4), achilles (S1) Right Lower Extremity: 3+patellar tendon (L4), achilles (S1) Gait: Unassisted nonantalgic with stable heel-toe tandem gait. Long-tract signs: Negative Rivera's No clonus Negative Romberg Vascular: Bilateral Upper Extremity: fingers [facility] LABORATORY & IMAGING: I have ordered and personally reviewed patient's imaging: AP and lateral cervical radiographs obtained today and reviewed show patient status post C5-C6 ACDFwith recent C6-C7 ACDF with intact instrumentation without evidence of gross loosening and no interval changes in alignment or displacement. ASSESSMENT AND PLAN: Kristian Vasques is a 49 y.o. male who presents for routine post-operative follow-up now 6 months status-post C6-C7 with some neck stiffness and resolving right C6 parasthesia. Plan: - Pain control: continue current regimen, no changes - Imaging Studies: repeat cervical radiographs at next follow-up - F/U: 6 months (1 year post-op) Evangelista Fong MD Fellow, Orthopaedic Spine Surgery [facility] ATTENDING ADDENDUM The patient was seen and examined with the spine fellow, and I agree with the above assessment and plan. Gabriel Horner MD Motor Assembler [facility] Spine Surgery [facility] Y 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 SCHOOL 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 documented in this encounter Plan of Treatment Not on file documented as of this encounter Results * XR Spine Cervical W Flexion And Extension 6 or More Views (08/05/2019 11:02 AM EARLY 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 SCHOOL 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) Anatomical Region Laterality Modality Spine N/A Computed Radiogr aphy 08/05/2019 11:1 1 AM EARLY 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 SCHOOL 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 Impressions 08/05/2019 11:11 AM EARLY 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 SCHOOL 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 Unchanged instrumented anterior C6-C7 and non-instrumented anterior C5-C6 fusions. ??No abnormal motion on bending. Electronically signed by: Marciano Hodges M.D. Narrative 08/05/2019 11:11 AM EARLY 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 SCHOOL 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 XR SPINE CERVICAL W FLEXION AND EXTENSION 6 OR MORE VIEWS HISTORY: Fusion of spine, cervical region. FINDINGS: AP, bilateral oblique and lateral neutral, flexion and extension radiographs of the cervical spine are obtained and compared with 04/08/2019. The patient remains status post anterior discectomy and interbody instrumented C6-C7 fusion with additional non-instrumented anterior C5-C6 fusion. ??Alignment is unchanged. ??The neural foramina are not well profiled on the oblique projections. ??There is no abnormal motion on flexion and extension. Procedure Note Marciano Hodges MD - 08/05/2019 XR SPINE CERVICAL W FLEXION AND EXTENSION 6 OR MORE VIEWS HISTORY: Fusion of spine, cervical region. FINDINGS: AP, bilateral oblique and lateral neutral, flexion and extension radiographs of the cervical spine are obtained and compared with 04/08/2019. The patient remains status post anterior discectomy and interbody instrumented C6-C7 fusion with additional non-instrumented anterior C5-C6 fusion. Alignment is unchanged. The neural foramina are not well profiled on the oblique projections. There is no abnormal motion on flexion and extension. IMPRESSION: Unchanged instrumented anterior C6-C7 and non-instrumented anterior C5-C6 fusions. No abnormal motion on bending. Electronically signed by: Marciano Hodgse M.D. Gabriel Chuck Horner MD IMG XR PROCEDURES Final Re sult documented in this encounter Visit Diagnoses Diagnosis Fusion of spine of cervical region- Primary Cervical radiculopathy Brachial neuritis or radiculitis nos Fusion of spine of cervical region documented in this encounter Discontinued Medications Medication Sig Discontinue Reason Start Date End Da te losartan (COZAAR) 25 mg tabletIndications:hypertension 75 mg nightly Therapy completed 08/05/2019 documented as of this encounter Historical Medications * This list may reflect changes made after this encounter. cyanocobalamin, vitamin B-12, 5,000 mcg tablet, sublingualIndica tions:Prevention of Vitamin B12 Deficiency Place 1 tablet under the tongue casting plug assembler before breakfast multivitamin capsuleIndicatio ns:Vitamin Deficiency Prevention Take 1 capsule by mouth casting plug assembler before breakfast losartan-hydroch lorothiazide (HYZAAR) 100-25 mg per tabletIndication s:hypertension Take 1 tablet by mouth nightly 02/23/2019 added in this encounter Care Teams Charging Operator Relationship Specialty Start Date End Date Jayla Phoenix MD [address] [place] [address] PCP - General 08/07/17 documented as of this encounter
--- OUTSIDE RECORDS SUMMARY | 2024-08-23 08:09 | XMS_ITS | Encounter Summary ---
Author Organization [facility] Address [address] [place] [address] Phone Care Team Providers Care Cellar Worker Name Role Phone Jayla Phoenix MD Primary Care Provider [phone] Reason for Visit * Reason Onset Date Comments Surgical Referral 01/29/2019 Encounter Details Date Type Department Care Team (Late st Contact Info) Description 01/29/2019 Telephone [facility] Orthopaedic Surgery [address] [facility] 6th [place] [address] [place] [address] Gabriel Horner MD [address] [id number] Surgical Referral Social History Tobacco Use Types Packs/Day Years Used Date Smoking Tobacco: Never Smokeless Tobacco: Never Alcohol Use Standard Drinks/Week Comments Yes 0 (1 standard drink = 0.6 oz pur e alcohol) Sex and Gender Information Value Date Recorded Sex Assigned at Not on file Legal Sex Male 7:18 PM LEGAL RESEARCH ANALYST Gender Identity Male 02/04/2019 10:52 AM CDT Sexual Orientation Straight 02/04/2019 10 :52 AM CDT documented as of this encounter Miscellaneous Notes * Telephone Encounter - Dinah Ribeiro RN - 02/03/2019 9:05 AM CDT I called Kristian this morning to tell him that I scheduled a cervical CT for 12pm on 02/04/19 at the [facility]. Once he's done with the CT I told him to come on up and check in for the apt with Dr. Horner, [facility]. * Telephone Encounter - Dinah Ribeiro RN - 02/02/2019 10:44 AM CDT I spoke to Kristian today and asked if he wanted to pick a surgery date ahead of time. He is miserable and requested first available. I will submit the request to his insurance for a February 16 surgery date. * Telephone Encounter - Dinah Ribeiro RN - 01/29/2019 11:27 AM CDT I called Kristian this morning and he is scheduled for a surgical consult for the new disc herniation on 02/04/19 at 2:30pm. ----- Message from BRITTON Calderon sent at 01/28/2019 2:27 PM CDT ----- Contact: He has a disc herniation producing both central canal and foraminal stenosis at C6-C7. He should see Dr. Horner for discussion of additional surgery. ----- Message ----- From: Yessenia Corona MA Sent: 01/28/2019 2:10 PM To: BRITTON Calderon Pt would like for you to look at his MRI when you get a chance. documented in this encounter Plan of Treatment Not on file documented as of this encounter Visit Diagnoses Not on filedocumented in this encounter Care Teams Cellar Worker Relationship Specialty Start Date End Date Jalya Phoenix MD [address] [id number] (work) PCP - General 08/07/17 documented as of this encounter
--- OUTSIDE RECORDS SUMMARY | 2024-08-23 08:09 | XMS_ITS | Encounter Summary ---
Author Organization [facility] Care Team Providers Care Neuroradiologist Name Role Phone Jayla Phoenix MD Primary Care Provider [phone] Encounter Details Date Type Department Care Team (Latest Contact Info) Description 02/16/2019 Travel Social History Tobacco Use Types Packs/Day Years Used Date Smoking Tobacco: Former Cigarettes 1.5 9 1 994 - 2002 Smokeless Tobacco: Never Alcohol Use Standard Drinks/Week Comments Not Currently 0 (1 standard drink = 0.6 oz pur e alcohol) Sex and Gender Information Value Date Recorded Sex Assigned at Not on file Legal Sex Male 7:18 PM BOOKKEEPER Gender Identity Male 02/04/2019 10:52 AM CDT Sexual Orientation Straight 02/04/2019 10 :52 AM CDT documented as of this encounter Plan of Treatment Not on file documented as of this encounter Visit Diagnoses Not on filedocumented in this encounter Care Teams Neuroradiologist Relationship Specialty Start Date End Date Jayla Phoenix MD [address] [place] [address] PCP - General 08/07/17 documented as of this encounter
--- OUTSIDE RECORDS SUMMARY | 2024-08-23 08:09 | XMS_ITS | Encounter Summary ---
Author Organization [facility] Address [address] [place] [address] Phone Care Team Providers Care Cylinder Machine Operator Pulp Drier Name Role Phone Jayla Phoenix MD Primary Care Provider [phone] Encounter Details Date Type Department Care Team (Late st Contact Info) Description 01/21/2020 Orders Only [facility] [address] [facility] Advanced Medicine 8th [place] [address] [place] [address] Corbin Duque MD [address] [place] [address] Crohn's disease of both small and large intestine with complication (CMS/HCC) (Primary Dx) Social History Tobacco Use Types Packs/Day Years Used Date Smoking Tobacco: Former Cigarettes 1.5 9 1 994 - 2002 Smokeless Tobacco: Never Alcohol Use Standard Drinks/Week Comments Not Currently 0 (1 standard drink = 0.6 oz pur e alcohol) Sex and Gender Information Value Date Recorded Sex Assigned at Not on file Legal Sex Male 7:18 PM COMMUNITY 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 PLANNER Gender Identity Male 02/04/2019 10:52 AM CDT Sexual Orientation Straight 02/04/2019 10 :52 AM CDT documented as of this encounter Ordered Prescriptions Prescription Sig Dispense Quantity Refills Last Filled Start Date End Date cholestyramine-asp artame 4 gram powderIndications: for bowel resection Take 1 Scoop by mouth every morning 1 Can 01/21/2020 0 documented in this encounter Plan of Treatment Not on file documented as of this encounter Visit Diagnoses Diagnosis Crohn's disease of both small and large intestine with complication (HCC)- Primary documented in this encounter Discontinued Medications Medication Sig Discontinue Reason Start Date End Da te cholestyramine-aspartame 4 gram powderIndications:for bowel resection every morning Reorder 09/18/2010 01/21/2020 documented as of this encounter Care Teams Cylinder Machine Operator Pulp Drier Relationship Specialty Start Date End Date Jayla Phoenix MD [address] [place] [address] PCP - General 08/07/17 documented as of this encounter
--- OUTSIDE RECORDS SUMMARY | 2024-08-23 08:09 | XMS_ITS | Encounter Summary ---
Author Organization [facility] Address [address] [place] [address] Phone Care Team Providers Care Digital Art Director Name Role Phone Jayla Phoenix MD Primary Care Provider [phone] Reason for Referral * Diagnostic Imaging (Routine) - Closed Specialty Diagnoses / Procedures Referred By Contac t Referred To Contact Diagnoses Fusion of spine of cervical region Procedures XR Spine Cervical 2 or 3 Views Gabriel Horner MD Phone: tel: fax: [facility] Referral ID Status Reason Start Date Expiration Date Visits Re quested Visits Authorized [id number] Closed 04/06/2019 10/15/2020 1 1 Reason for Visit * Reason Comments Post-op Pain Encounter Details Date Type Department Care Team (Late st Contact Info) Description 04/08/2019 11:30 AM CDT Office Visit [facility] Orthopaedic Surgery [address] [facility] 6th [place] [address] [place] [address] Gabriel Horner MD [address] [facility] [address] [place] [address] Fusion of spine of cervical region (Primary [...] on file Legal Sex Male 7:18 PM ENGINEERING DRAFTER Gender Identity Male 02/04/2019 10:52 AM CDT Sexual Orientation Straight 02/04/2019 10 :52 AM CDT documented as of this encounter Last Filed Vital Signs Vital Sign Reading Time Taken Comments Blood Pressure - - Pulse - - Temperature - - Respiratory Rate - - Oxygen Saturation - - Inhaled Oxygen Concentration - - Weight 93.4 kg (205 lb 14.6 oz) 019 11:49 AM CDT Height 188 cm (6' 2.02 ) 04/08/2019 11: 49 AM CDT Body Mass Index 26.43 04/08/2019 11:49 AM CDT documented in this encounter Progress Notes * Gabriel Horner MD - 04/08/2019 11:30 AM CDT POST OPERATIVE VISIT HISTORY OF PRESENT ILLNESS: Kristian Vasques is 7 weeks weeks postop after a C6-7 ACDF. The patient is doing well with improvement in their preoperative radiculopathy. They report a NDI score of 6 They report a ROSANNE score of 17 0/10 neck or arm pain PHYSICAL EXAMINATION: Left anterior cervical incision is healed without signs of infection. Speech and swallowing appear normal. There is no reported radiation of pain into their arms or hands. 5/5 strength in bilateral deltoid, bicep, tricep, wrist extension and flexion, motor grader rough grade, hand intrinsics. Sensation to light touch intact in the C5-T1 dermatomes except for some persistent numbness in the right thumb and 3rd digit. Reflexes 1+ Gait unassisted into the office. REVIEW OF X-RAY/STUDIES: Imaging studies of the cervical spine were ordered and reviewed by me today, and reveal previous removal of C5-6 plate, C6-7 anterior cervical discectomy and fusion in expected position. ASSESSMENT/PLAN: Postop cervical ACDF FOLLOW-UP: The patient appears to be doing well with improvement in their preoperative radicular symptoms. Cervical brace can be removed at this time point and the patient can start gentle cervical ROM. Physical therapy was discussed with the patient and they have elected to start PT, with a prescription given today in the office. The patient can start to increase ADLs as discussed with me today. The patient can resume driving. The patient will return to work without restrictions on Saturday. Gabriel Horner MD Weight Clerk [facility] Spine Service Gabriel Horner MD dictating using [employer]. Tool Grinding Technician variances may documented in this encounter Plan of Treatment [...] Electronically signed by: Julia Lindquist MD Gabriel Chuck Horner MD IMG XR PROCEDURES Final Re sult documented in this encounter Visit Diagnoses Diagnosis Fusion of spine of cervical region- Primary Cervical radiculopathy Brachial neuritis or radiculitis nos Fusion of spine of cervical region documented in this encounter Discontinued Medications Medication Sig Discontinue Reason Start Date End Da te acetaminophen 500 mg capsule Take 2 capsules (1,000 mg total) by mouth every 8 (eight) hours Therapy completed 02/17/2019 04/08/2019 baclofen (LIORESAL) 10 mg tabletIndications:Musc le spasm Take 1 tablet (10 mg total) by mouth every 8 (eight) hours Therapy completed 02/17/2019 04/08/2019 gabapentin (NEURONTIN) 300 mg capsule Take 1 capsule by mouth daily for 3 days, then increase to 1 capsule twice daily for 3 days, then 1 capsule three times a day thereafter. Do not stop medication abruptly Therapy completed 01/23/2019 04/08/2019 senna-docusate (PERICOLACE) 8.6-50 mgIndications:constipa tion Take 2 tablets by mouth 2 (two) times a day May increase to 4 tablets twice daily if needed. HOLD medication for diarrhea. Therapy completed 02/17/2019 04/08/2019 documented as of this encounter Care Teams Digital Art Director Relationship Specialty Start Date End Date Jayla Phoenix MD [address] [place] [address] PCP - General 08/07/17 documented as of this encounter
--- OUTSIDE RECORDS SUMMARY | 2024-08-23 08:09 | XMS_ITS | Encounter Summary ---
Author Organization [facility] Healthcare Address [address] [place] [address] Care Team Providers Care Product Handler Name Role Phone Jayla Phoenix MD Primary Care Provider + [phone] Encounter Details Date Type Department Care Team (Late st Contact Info) Description 02/16/2019 12:59 PM CDT Anesthesia Event [facility] Operating Room [address] [facility] [place] [address] Feliz Jaeger MD [address] [facility] [address] [place] [address] Kait Joiner NP [address] [facility] [phone] [place] [address] Anesthesia Record Procedure Summary Procedure Name Responsible Anesthesiologist Anesthesia Start Time Anesthesia Stop Time REMOVAL HARDWARE SPINE- Removal of C5-C6 anterior cervical plate, C6-C7 anterior cervical discectomy and fusion with instrumentation, allograft, autograft, spinal cord monitoring cut to close 3 hours (Spine Thoracic) Feliz Jaeger MD 02/16/19 1259 02/16/19 1622 Events Date Time Event Comment 02/16/2019 0930 1237 AN Equip Check 1259 An Start 1304 In Room 1312 An Start Data 1314 An Induction The patient was reevaluated immediately before moderate or deep sedation use and before anesthesia induction. 1316 An Intubation 1333 Anesthesia Ready 1353 Proc Start 1354 Incision Start 1604 An Extubation 1609 an stop data 1611 Proc Fin 1612 Out of Room 1617 Handoff to RN I completed my handoff [...] disposition at the time of handoff: PACU 1622 An Stop Meds Name Total midazolam 2 mg/2 mL 4 mg fentaNYL PF 50 mcg/mL 425 mcg propofol 200 mg propofol 1,287.99 mg famotidine PF 20 mg ondansetron PF 4 mg ceFAZolin (ANCEF) 1 gram/10 mL in steril e water (premix) 2,000 mg 2,000 mg dexamethasone 4 mg/mL 10 mg succinylcholine syringe 100 mg/5 mL 100 mg vancomycin 500 mg 1,500 mg Lactated Ringer's (LR) infusion 1,300 mL LR 1,700 mL * Agents Name O2 N2O Air Sevoflurane Inspired Sevoflurane * Blood No blood administrations on file. Lines, Drains, and Airways Type Details Placement Removal Peripheral IV Placement Date: 02/16/19; Placement Time: 918; Catheter Size: 20 G; Orientation: Right; Location: Hand; Site Prep: Chlorhexidine; Inserted by: Korin Garber RN; Insertion Attempts: 2; Patient Tolerance: Tolerated well; Removal Date: 02/17/19; Removal Time: 1030; Removal Reason: Per protocol 02/16/19918 by Rupinder Garber RN 02/17/19 1030 by Magaly Roman RN ETT Placement Date: 02/16/19; Placement Time: 1316 (created via procedure documentation); Mask Ventilation: 1; Technique: Video laryngoscopy; Type: ETT - single; Single Lumen Tube Size: 8 mm; Cuffed: Yes; Laryngoscope: Juliana; Blade Size: 4; Location: Oral; Insertion Attempts: 1; Placement Verification: Auscultation, Capnometry; Airway Comment: Patient c/t neck pain. Decision to use glidescope to avoid manipulating the neck ; Removal Date: 02/16/19; Removal Time: 1604 02/16/19 1316 by Ileana Martinez CRNA 02/16/19 1604 by Ileana Martinez CRNA RETIRED Surgical Site 02/16/19; 1340; Ne ck; 04/13/20 (not present on admission); 1250 02/16/19 1340 by Laura Loya RN 04/13/20 1250 by Brianne Cabral RN Closed/Suction/Open Drain 02/16/19; 1619; 1; Right; Neck; Bulb 02/16/19 1619 by Viviane Martinez CRNFA 02/17/19 0000 by Tejal Zuniga RN Peripheral IV Placement Date: 02/16/19; Placement Time: 162; Catheter Size: 20 G; Orientation: Left; Location: Hand; Removal Date: 02/17/19; Removal Time: 1030; Removal Reason: Per protocol 02/16/19 1628 by Samantha Coto RN 02/17/19 1030 by Magaly Roman RN documented in this encounter Social History Tobacco Use Types Packs/Day Years Used Date Smoking Tobacco: Former Cigarettes 1.5 9 1 994 - 2003 Smokeless Tobacco: Never Alcohol Use Standard Drinks/Week Comments Not Currently 0 (1 standard drink = 0.6 oz pur e alcohol) Sex and Gender Information Value Date Recorded Sex Assigned at Not on file 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 Gender Identity Male 02/04/2019 10:52 AM CDT Sexual Orientation Straight 02/04/2019 10 :52 AM CDT documented as of this encounter OR Notes * Anesthesia Postprocedure Evaluation - Feliz Jaeger MD - 02/16/2019 5:43 PM CDT Patient: Kristian Vasques Procedure Summary Date: 02/16/19 Room / Location: [facility] MAIN OPERATING ROOM [facility] OPERATING ROOM Anesthesia Start: 1259 Anesthesia Stop: 162 Procedures: REMOVAL HARDWARE SPINE- Removal of C5-C6 anterior cervical plate, C6-C7 anterior cervical discectomy and fusion with instrumentation, allograft, autograft, spinal cord monitoring cut to close 3 hours(N/A Spine Thoracic) FUSION CERVICAL ANTERIOR DISCECTOMY WITH INSTRUMENTATION (N/A Spine Cervical) SPINAL CORD MONITORING (N/A ) Diagnosis: Cervical disc herniation Cervical radiculopathy Fusion of spine of cervical region (Cervical disc herniation [M50.20]) (Cervical radiculopathy [M54.12]) (Fusion of spine of cervical region [M43.22]) Surgeon: Gabriel Horner MD Responsible Provider: Feliz Jaeger MD Anesthesia Type: general ASA Status: 2 Anesthesia Type: general Last vitals BP 133/98 Pulse 91 Temp 36.9 ??C (98.4 ??F) (Temporal) Resp 14 SpO2 95% Anesthesia Post Evaluation Patient location during evaluation: PACU Patient participation: complete - patient participated Level of consciousness: fully awake Pain score: 4 Pain management: adequate Airway patency: adequate and patent Evidence of recall: no Anesthetic complications: no Cardiovascular status: hemodynamically stable and acceptable Respiratory status: acceptable and nasal cannula Hydration status: euvolemic Pt is: normothermic Nausea/Vomiting status: none * Anesthesia Procedure Notes - Ileana Martinez CRNA - 02/16/2019 1:47 PM CDTAssociated Order(s): Airway Airway Patient location: OR Urgency: elective Date/time: 02/16/2019 1:16 PM Indications for airway management: anesthesia Difficult airway: no Staff: Placed by: COLOR STRAINING BAG WASHER: Ileana Martinez CRNA Emergent airway documentation: Risks and benefits discussed: yes Consent obtained: yes Consent given by: patient Airway prep: Preoxygenated: yes Patient position: sniffing Mask difficulty assessment: 1 - vent by mask Spontaneous ventilation during airway: absent Sedation level during airway: deep Final airway details: Final airway type: endotracheal airway Tube type: ETT ETT size: 8.0 mm Cuffed: yes Technique used for successful ETT placement: video laryngoscopy Devices/Methods used in placement: intubating stylet Insertion site: oral Blade type: Juliana Video blade type: Glidescope Blade size: 4 Cuff volume: 10 mL Cuff inflated with: air ETT to teeth: 24 cm Placement verified by: auscultation and CO2 detection Airway secured with: silk tape Number of attempts: 1 Additional comments: Patient c/t neck pain. Decision to use glidescope to avoid manipulating the neck * Anesthesia Preprocedure Evaluation - Feliz Jaeger MD - 02/12/2019 8:18 AM CDT [facility] Preoperative Assessment and Planning Preoperative Evaluation Record CPAP Clinic at [facility] ([facility]) Date: 02/12/19 Anesthesia Evaluation Kristian Vasques is a 48 y.o. male Procedure(s): REMOVAL HARDWARE SPINE- Removal of C5-C6 anterior cervical plate, C6-C7 anterior cervical discectomy and fusion with instrumentation, allograft, autograft, spinal cord monitoring cut to close 3 hours FUSION CERVICAL ANTERIOR DISCECTOMY WITH INSTRUMENTATION SPINAL CORD MONITORING Pre-Op Diagnosis Codes: * Cervical disc herniation [M50.20] * Cervical radiculopathy [M54.12] * Fusion of spine of cervical region [M43.22] HISTORY HPI Kristian Vasques is a 48 y.o. male who is being evaluated prior to undergoing REMOVAL HARDWARE SPINE C5-C6, C6-C7 ACDF for Cervical disc herniation, radiculopathy . Past Medical History Information obtained from: patient and chart. Neurological Pertinent negatives: seizures; neuromuscular disease and CVA/stroke Neuro/Psych system: negative Cardiovascular + Hypertension Hypertension year diagnosed: 2016. Pertinent negatives: CAD ; [place] ; CABG ; valvular heart disease; valve replacement; atrial fibrillation; arrhythmia; pacemaker/ICD; PVD; DVT/PE; negative for CHF; drug-eluting stent(s); bare metal stent(s) and coronary angioplasty Respiratory Pertinent negatives: non-smoker Respiratory system: negative Hepatic / Heme Hepatic/Heme system: negative Gastrointestinal GI system: negative Renal / + Nephrolithiasis (2017 - s/p lithotripsy) Pertinent negatives: renal disease and dialysis Musculoskeletal/Pain + Chronic pain (radiculopathy) - neck pain. + Osteoarthritis Pertinent negatives: chronic opioid use and previous treatment for opioid use disorder Endocrine / Other Pertinent negatives: diabetes mellitus; thyroid disease; obesity (BMI >30); cancer history; rheumatological disease and transplanted organ Functional Capacity Functional capacity: 4-6 METs Comments: Can walk 4-6 blocks, climb 2 flights of stairs w/o CP or SOB. Review of Systems + dizziness (rarely maybe d/t BP) + muscle weakness (RUE d/t cervical stenosis) + chronic pain (radiculopathy) + numbness/tingling (RUE d/t cervical stenosis) + chipped/loose teeth (upper front cap) Pertinent negatives: productive cough; wheezing; SOB; recent cold/flu; fever; chest pain; palpitations; orthopnea; pedal edema; PND; Sickle Cell disease/trait; previous transfusion; transfusion reaction; melena/hematochezia; easy bruising; bleeding problems; syncope; hard of hearing; vision loss; he artburn; nausea; dysphagia; diarrhea; dentures/partials; abdominal pain; diaphoresis and no unexpected weight change PAT Summary and Plans Cardiac risk classification of planned procedure: intermediate cardiac risk. Preoperative assessment status: lab tests ordered. Initial preoperative evaluation discussed with: Yariel Rodríguez MD Additional comments: Kristian Vasques is a 48 y.o. male who is being evaluated prior to undergoing an intermediate cardiac risk surgery. Revised Cardiac Risk Index factors are (none) for a total RCRIof 0 out of 6. Functional capacity is 4-6 METs. Obstructive sleep apnea (STACI) screening status is STOP-Bang=3 suggesting moderate risk for STACI, bicarbonate value pending.The patient is at elevated risk for obstructive sleep apnea (STACI) per STOP-BANG screening questionnaire results. Patient informed of the possibility that they have undiagnosed STACI, which may increase their risk for perioperative respiratory events. Patient also informed of thepossible long-term health problems associated with STACI. Because we do not feel that preoperative STACI testing is likely to outweigh the downsides of delaying surgery, we have recommended that the patient talk to their primary doctor or other clinician after surgery about getting tested for STACI. Blood bank needs for day of procedure: Type and Screen only Pending labs/tests include: CBC, CMP, T&S (14 day), Urinalysis flex. Vitamin D, urine nicotine > Anesthesia considerations - upper front cap was loosened with last intubation. Preoperative evaluation performed by Kait Gibson NP on 02/12/19 at 8:20 AM. . Follow up note Labs reviewed and are without significant findings. CO2 - 28, STACI orders entered. Final report of urine flexed to Michelle dee at surgeon's office made aware. CPAP process complete. Follow-up completed by: Kait Gibson NP on 02/12/19 at 12:52 PM Patient Active Problem List Diagnosis ??? Cervical pain (neck) ??? Cervical radiculopathy at C7 ??? Cervical disc herniation ??? Cervical radiculopathy ??? Fusion of spine of cervical region Past Medical History: Diagnosis Date ??? Gastric reflux ??? HTN (hypertension) Past Surgical History: Procedure Laterality Date ??? ANTERIOR CERVICAL DISCECTOMY W/ FUSION 2017 ??? BOWEL RESECTION 2009 Allergies Allergen Reactions ??? Iodinated Contrast- Oral And Iv Dye Rash Current Outpatient Medications: ??? multivitamin capsule ??? cholestyramine-aspartame 4 gram powder ??? gabapentin (NEURONTIN) 300 mg capsule ??? HYDROcodone-acetaminophen (NORCO) 10-325 mg per tablet ??? losartan (COZAAR) 25 mg tablet ??? mupirocin (BACTROBAN) 2 % ointment ??? tiZANidine (ZANAFLEX) 4 mg tablet Social History Tobacco Use Smoking Status Former Smoker ??? Packs/day: 1.50 ??? Start date: 1993 ??? Last attempt to quit: 2002 ??? Years since quittin.4 Smokeless Tobacco Never Used Substance and Sexual Activity Alcohol Use Not Currently Substance and Sexual Activity Drug Use No Family History Problem Relation Age of Onset ??? Heart attack Father ??? Anesthesia problems Neg Hx PAT Physical Exam Airway Exam: Mallampati: II Cervical ROM: unable to evaluate TM distance: 3 Jaw ROM: full (Soft collar in place, pt with significant cervical pain, not assessed, pt reports he typically hasgood cervical ROM) Cardiovascular Exam: Rate: regular Rhythm: regular Negative for Murmur No extra heart sounds appreciated Negative for peripheral edema Pulmonary Exam: LCTA, bilat EENT Exam: trachea midline Dental Exam: Appears intact Skin Exam: Skin is warm. Turgor is normal. Abdominal exam: Abdomen is soft. Bowel sounds are present. Current state: Patient's current state is cooperative and interactive. Vitals: 02/12/19 0837 02/12/19 0838 BP: 132/88 138/90 Pulse: 78 Resp: 18 SpO2: 98% Relevant diagnostics: Other: Cervical MRI - 01/28/2019: IMPRESSION: Examination limited by motion artifact. 1. Interval anterior cervical discectomy and fusion at C5-C6. 2. Worsened right subarticular disc extrusion at C6-C7 resulting in moderate canal and severe rightneuroforaminal stenosis. 3. Additional multilevel degenerative changes as above. PT: No results found for requested labs [...] last 720 hours. STOP-Bang Total Score: 3 Trice index score: 85 DOS Physical Exam Medical history, medications, and allergies reviewed. Attestation: This PAT evaluation 02/16/2019. Airway Exam: Mallampati: III Cervical ROM: FROM Cardiovascular Exam: Rate: regular Rhythm: regular Pulmonary Exam: LCTA, bilat Dental Exam: Caps Anesthesia Plan ASA 2 My patient is approved for the Anesthesia Controlled Medication protocol when under care of a COLOR STRAINING BAG WASHER Planned anesthesia: General Informed Consent: Anesthesia plan [...] Procedure Name Priority Date/Time Associated Diagnosis Comments RI AN PROCEDURE PLACEHOLDER Routine 02/16/2019 1:47 PM CDT Procedure Note - Ileana Martinez CRNA - 02/16/2019 1:47 PM CDTThis note is in progress. Airway Patient location: OR Urgency: elective Date/time: 02/16/2019 1:16 PM Indications for airway management: anesthesia Difficult airway: no Staff: Placed by: COLOR STRAINING BAG WASHER: Ileana Martinez CRNA Emergent airway documentation: Risks and benefits discussed: yes Consent obtained: yes Consent given by: patient Airway prep: Preoxygenated: yes Patient position: sniffing Mask difficulty assessment: 1 - vent by mask Spontaneous ventilation during airway: absent Sedation level during airway: deep Final airway details: Final airway type: endotracheal airway Tube type: ETT ETT size: 8.0 mm Cuffed: yes Technique used for successful ETT placement: video laryngoscopy Devices/Methods used in placement: intubating stylet Insertion site: oral Blade type: Juliana Video blade type: Glidescope Blade size: 4 Cuff volume: 10 mL Cuff inflated with: air ETT to teeth: 24 cm Placement verified by: auscultation and CO2 detection Airway secured with: silk tape Number of attempts: 1 Additional comments: Patient c/t neck pain. Decision to use glidescope to avoid manipulatingthe neck RI AN ELECTIVE ENDOTRACHEAL AIRWAY Routine 02/16/2019 1:47 PM CDT Procedure Note - Ileana Martinez CRNA - 02/16/2019 1:47 PM CDTThis note is in progress. Airway Patient location: OR Urgency: elective Date/time: 02/16/2019 1:16 PM Indications for airway management: anesthesia Difficult airway: no Staff: Placed by: COLOR STRAINING BAG WASHER: Ileana Martinez CRNA Emergent airway documentation: Risks and benefits discussed: yes Consent obtained: yes Consent given by: patient Airway prep: Preoxygenated: yes Patient position: sniffing Mask difficulty assessment: 1 - vent by mask Spontaneous ventilation during airway: absent Sedation level during airway: deep Final airway details: Final airway type: endotracheal airway Tube type: ETT ETT size: 8.0 mm Cuffed: yes Technique used for successful ETT placement: video laryngoscopy Devices/Methods used in placement: intubating stylet Insertion site: oral Blade type: Juliana Video blade type: Glidescope Blade size: 4 Cuff volume: 10 mL Cuff inflated with: air ETT to teeth: 24 cm Placement verified by: auscultation and CO2 detection Airway secured with: silk tape Number of attempts: 1 Additional comments: Patient c/t neck pain. Decision to use glidescope to avoid manipulatingthe neck documented in this encounter Visit Diagnoses Not on filedocumented in this encounter Administered Medications Inactive Administered Medications - up to 3 most recent administrations Medication Order MAR Action Action Date Dose Rate Site ceFAZolin (ANCEF) 1 gram/10 mL in sterile water (premix) 2,000 mg 2,000 mg, intravenous, at 400 mL/hr, Administer over 3 Minutes, Once, On Sat02/16/19 at 0945, For 1 dose, Pre-Op, Administer within 60 minutes of incision., Indications: Prophylaxis, SurgicalIndications:Prophylaxis , Surgical Given 02/16/2019 12:59 PM CDT 2,000 mg dexamethasone (DECADRON) 4 mg/mL injection Administer over 2 Minutes, As needed, Starting on Sat02/16/19 at 1314, Anesthesia Intra-op Given 02/16/2019 1:14 PM CDT 10 mg famotidine (PEPCID) injection intravenous, Administer over 2 Minutes, As needed, Starting on Sat02/16/19 at 1259, Anesthesia Intra-op Given 02/16/2019 12:59 PM CDT 20 mg fentaNYL (SUBLIMAZE) preservative free injection As needed, Starting on Sat02/16/19 at 1015, Anesthesia Intra-op Given 02/16/2019 4:06 PM CDT 50 mcg Given 02/16/2019 3:53 PM CDT 25 mcg Given 02/16/2019 3:17 PM CDT 50 mcg Lactated Ringer's (LR) infusion 30 mL/hr, intravenous, Continuous, Starting on Sat02/16/19 at 0945, Pre-Op, Switch to Normal Saline for patients on Dialysis New Bag 02/16/2019 3:19 PM CDT Rate/Dose Verify 02/16/2019 12:59 PM CDT New Bag 02/16/2019 9:20 AM CDT 30 mL/hr 30 mL/hr Lactated Ringer's (LR) infusion Continuous PRN, Starting on Sat02/16/19 at 1308, Anesthesia Intra-op New Bag 02/16/2019 3:17 PM CDT New Bag 02/16/2019 1:08 PM CDT midazolam (VERSED) injection As needed, Starting on Sat02/16/19 at 1015, Anesthesia Intra-op Given 02/16/2019 1:14 PM CDT 2 mg Given 02/16/2019 11:34 AM CDT 1 mg Given 02/16/2019 10:15 AM CDT 1 mg ondansetron (ZOFRAN) injection intravenous, Administer over 2 Minutes, As needed, Starting on Sat02/16/19 at 1259, Anesthesia Intra-op Given 02/16/2019 12:59 PM CDT 4 mg propofol (DIPRIVAN) IV intravenous, As needed, Starting on Sat02/16/19 at 1314, Anesthesia Intra-op Given 02/16/2019 1:14 PM CDT 200 mg propofol (DIPRIVAN) IV Continuous PRN, Starting on Sat02/16/19 at 1330, Anesthesia Intra-op Rate/Dose Change 02/16/2019 3:33 PM CDT 50 mcg/kg/min 28.02 mL/hr Rate/Dose Change 02/16/2019 3:26 PM CDT 80 mcg/kg/min 44.8 3 mL/hr Rate/Dose Change 02/16/2019 3:23 PM CDT 90 mcg/kg/min 50.4 4 mL/hr succinylcholine syringe As needed, Starting on Sat02/16/19 at 1314, Anesthesia Intra-op Given 02/16/2019 1:14 PM CDT 100 mg vancomycin (VANCOCIN) solution As needed, Starting on Sat02/16/19 at 1259, Anesthesia Intra-op Given 02/16/2019 12:59 PM CDT 1,500 mg documented in this encounter Orders Procedures Count Last Ordered Date First Orde red Date Airway 1 02/16/2019 documented in this encounter Care Teams Product Handler Relationship Specialty Start Date End Date Jayla Phoenix MD [address] [place] [address] PCP - General 08/07/17 documented as of this encounter
--- OUTSIDE RECORDS SUMMARY | 2024-08-23 08:09 | XMS_ITS | Encounter Summary ---
Author Organization [facility] Address [address] [place] [address] Phone Care Team Providers Care Detective Chief Name Role Phone Jayla Phoenix MD Primary Care Provider [phone] Encounter Details Date Type Department Care Team (Late st Contact Info) Description 01/15/2020 Telephone [facility] [address] [facility] [address] [place] [address] [place] [address] Bart Armendariz CMA Social History Tobacco Use Types Packs/Day Years Used Date Smoking Tobacco: Former Cigarettes 1.5 9 1 994 - 2003 Smokeless Tobacco: Never Alcohol Use Standard Drinks/Week Comments Not Currently 0 (1 standard drink = 0.6 oz pur e alcohol) Sex and Gender Information Value Date Recorded Sex Assigned at Not on file 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 documented in this encounter Plan of Treatment Not on file documented as of this encounter Visit Diagnoses Not on filedocumented in this encounter Care Teams Detective Chief Relationship Specialty Start Date End Date Jayla Phoenix MD [address] [place], [place] [id number] PCP - General 08/07/17 documented as of this encounter
--- OUTSIDE RECORDS SUMMARY | 2024-08-23 08:09 | XMS_ITS | Encounter Summary ---
Author Organization [facility] Healthcare Address [address] [place] [address] Care Team Providers Care Needleworker Name Role Phone Jayla Phoenix MD Primary Care Provider [phone] Reason for Referral * Diagnostic Imaging (Routine) - Closed Specialty Diagnoses / Procedures Referred By Contac t Referred To Contact Radiology Diagnoses Fusion of spine of cervical region Cervical disc herniation Procedures CT Cervical Spine WO Contrast Gabriel Horner MD Phone: tel: fax: [address] [phone] Referral ID Status Reason Start Date Expiration Date Visits Re quested Visits Authorized [id number] Closed 02/02/2019 08/13/2020 1 1 Reason for Visit * Diagnostic Imaging (Routine) - Closed Specialty Diagnoses / Procedures Referred By Contac t Referred To Contact Radiology Diagnoses Fusion of spine of cervical region Cervical disc herniation Procedures CT Cervical Spine WO Contrast Gabriel Horner MD Phone: tel: fax: [address] [phone] Referral ID Status Reason Start Date Expiration Date Visits Re quested Visits Authorized [id number] Closed 02/02/2019 08/13/2020 1 1 Encounter Details Date Type Department Care Team (Latest Contact Info) Description 02/04/2019 11:53 AM CDT - 02/04/2019 11:59 PM CDT Hospital Encounter [facility] [address] [place] [address] Gabriel Horner MD [address] [facility] [address] [place] [address] Fusion of spine of cervical region; Cervical disc herniation Discharge Disposition: Discharge to home or self care Social History Tobacco Use Types Packs/Day Years Used Date Smoking Tobacco: Never Smokeless Tobacco: Never Alcohol Use Standard Drinks/Week Comments Yes 0 (1 standard drink = 0.6 oz pur e alcohol) Sex and Gender Information Value Date Recorded Sex Assigned at Not on file Legal Sex 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 Gender Identity Male 02/04/2019 10:52 AM CDT Sexual Orientation Straight 02/04/2019 10 :52 AM CDT documented as of this encounter Medications at Time of Discharge oxyCODONE (ROXICODONE) 5 mg immediate release tabletIndications:P ain Take 1 tablet (5 mg total) by mouth every 4 (four) hours as needed for pain for up to 7 days 42 tablet 02/16/2019 9 acetaminophen 500 mg capsule Take 2 capsules (1,000 mg total) by mouth every 8 (eight) hours 30 tablet 02/17/2019 9 baclofen (LIORESAL) 10 mg tabletIndications:M uscle spasm Take 1 tablet (10 mg total) by mouth every 8 (eight) hours 90 tablet 02/17/2019 9 cholestyramine-aspa rtame 4 gram powderIndications:f or bowel resection every morning 09/18/2010 0 dexAMETHasone (DECADRON) 2 mg tablet Take 2 mg by mouth 2 (two) times a day with meals 9 gabapentin (NEURONTIN) 300 mg capsule Take 1 capsule by mouth daily for 3 days, then increase to 1 capsule twice daily for 3 days, then 1 capsule three times a day thereafter. Do not stop medication abruptly 90 capsule 01/23/2019 9 HYDROcodone-acetami nophen (NORCO) 10-325 mg per tabletIndications:P ain Take 1 tablet by mouth every 6 (six) hours as needed for pain 9 ketorolac (TORADOL) 10 mg tablet TK ONE T PO Q 6 H PRN P 0 01/18/2019 9 losartan (COZAAR) 25 mg tabletIndications:h ypertension 75 mg nightly 9 mupirocin (BACTROBAN) 2 % ointment Use a q-tip and apply inside both nostrils twice daily. Begin 5 days before surgery. 09/27/2017 9 mupirocin (BACTROBAN) 2 % ointmentIndications :Cervical radiculopathy at C7 Place small amount of ointment in each nostril with a q-tip twice daily for 5 days prior to surgery 22 g 02/04/2019 9 senna-docusate (PERICOLACE) 8.6-50 mgIndications:const ipation Take 2 tablets by mouth 2 (two) times a day May increase to 4 tablets twice daily if needed. HOLD medication for diarrhea. 80 tablet 1 02/17/2019 9 tiZANidine (ZANAFLEX) 4 mg tablet TK 1 T PO Q 6 H for pain 0 01/18/2019 9 tiZANidine (ZANAFLEX) 4 mg tablet Take 1 tablet (4 mg total) by mouth every 8 (eight) hours as needed for muscle spasms 90 tablet 01/23/2019 9 documented as of this encounter Discharge Disposition Disposition Code Departure Means Destination Discharge to home or self care documented in this encounter Plan of Treatment Not on file documented as of this encounter Procedures Procedure Name Priority Date/Time Associated Diagnosis Comments CT CERVICAL SPINE WO CONTRAST Schedule Routine, Read Routine (OP Routine) 02/04/2019 12:21 PM CDT Fusion of spine of cervical region Cervical disc herniation documented in this encounter Results * CT Cervical Spine WO Contrast (02/04/2019 12:21 PM CDT) Anatomical Region Laterality Modality Spine N/A Computed Tomogra phy 02/04/2019 2:31 PM CDT Impressions 02/04/2019 2:47 PM CDT 1. Changes of prior anterior cervical discectomy and fusion at C5-C6. 2. Right subarticular disc extrusion at C5-C6, resulting in moderate canal stenosis and severe right neuroforaminal stenosis. 3. Advanced multilevel degenerative changes as described in detail above. Dictated by: Benito Schneider M.D. The radiology attending physician has personally reviewed this study, and had reviewed and/or edited this written report and agrees with it. Electronically signed by: Warren Springer M.D, PHD Narrative 02/04/2019 2:47 PM CDT EXAMINATION: CT of the cervical spine without contrast HISTORY: History of C5-C6 anterior instrumented fusion and discectomy, recent MRI demonstrating disc extrusion at C6-C7, with resulting moderate canal and severe right neuroforaminal stenosis. TECHNIQUE: CT of the cervical spine was performed according to standard protocol without intravenous contrast. COMPARISON: Cervical spine MRI 01/28/2019 FINDINGS: Redemonstrated findings of anterior instrumented cervical discectomy and fusion at C5-C6, with focal kyphosis centered at C5. There is no evidence of hardware complication. Also redemonstrated is a worsening right subarticular disc extrusion at C6-C7, which results in moderate canal and severe right neuroforaminal stenosis at that level. There is no acute fracture. Vertebral bodies are normal in height without compression fractures. There is multilevel degenerative changes, most pronounced at C6-C7 and C7-T1. The craniocervical junction is normal. Limited views of the skull base appear normal. The sphenoid sinus is well aerated. No soft tissue abnormality is identified. Procedure Note Warren Springer MD PhD - 02/04/2019 EXAMINATION: CT of the cervical spine without contrast HISTORY: History of C5-C6 anterior instrumented fusion and discectomy, recent MRI demonstrating disc extrusion at C6-C7, with resulting moderate canal and severe right neuroforaminal stenosis. TECHNIQUE: CT of the cervical spine was performed according to standard protocol without intravenous contrast. COMPARISON: Cervical spine MRI 01/28/2019 FINDINGS: Redemonstrated findings of anterior instrumented cervical discectomy and fusion at C5-C6, with focal kyphosis centered at C5. There is no evidence of hardware complication. Also redemonstrated is a worsening right subarticular disc extrusion at C6-C7, which results in moderate canal and severe right neuroforaminal stenosis at that level. There is no acute fracture. Vertebral bodies are normal in height without compression fractures. There is multilevel degenerative changes, most pronounced at C6-C7 and C7-T1. The craniocervical junction is normal. Limited views of the skull base appear normal. The sphenoid sinus is well aerated. No soft tissue abnormality is identified. IMPRESSION: 1. Changes of prior anterior cervical discectomy and fusion at C5-C6. 2. Right subarticular disc extrusion at C5-C6, resulting in moderate canal stenosis and severe right neuroforaminal stenosis. 3. Advanced multilevel degenerative changes as described in detail above. Dictated by: Benito Schneider M.D. The radiology attending physician has personally reviewed this study, and had reviewed and/or edited this written report and agrees with it. Electronically signed by: Warren Springer M.D, PHD [facility] Chuck Horner MD IMG CT PROCEDURES Final Re sult documented in this encounter Visit Diagnoses Diagnosis Fusion of spine of cervical region Cervical disc herniation Displacement of cervical intervertebral disc without myelopathy documented in this encounter Care Teams Needleworker Relationship Specialty Start Date End Date Jayla Phoenix MD [address] [place] [address] PCP - General 08/07/17 documented as of this encounter
--- OUTSIDE RECORDS SUMMARY | 2024-08-23 08:09 | XMS_ITS | Encounter Summary ---
Author Organization [facility] Healthcare Address [address] [place] [address] Care Team Providers Care Film Splicer Name Role Phone Jayla Phoenix MD Primary Care Provider [phone] Encounter Details Date Type Department Care Team (Late st Contact Info) Description 02/16/2019 11:40 AM CDT - 02/16/2019 2:55 PM CDT Surgery [facility] Operating Room [address] [place] [address] Gabriel Horner MD [facility] [phone] REMOVAL HARDWARE SPINE- Removal of C5-C6 anterior cervical plate, C6-C7 anterior cervical discectomy and fusion with instrumentation, allograft, autograft, spinal cord monitoring cut to close 3 hours Surgery Details Date/Time Status Location OR Service Patient Class Case Class Case Type Trauma Case? 02/16/2019 11:40 AM Posted [facility] OPERATING ROOM MOR1 Orthopaedics Outpatient in Bed Elective Panel 1 Procedure LRB Anes Op Region Wound Class Comments REMOVAL HARDWARE SPINE- Removal of C5-C6 anterior cervical plate, C6-C7 anterior cervical discectomy and fusion with instrumentation, allograft, autograft, spinal cord monitoring cut to close 3 hours N/A General Spine Thoracic Class I - Clean FUSION CERVICAL ANTERIOR DISCECTOMY WITH INSTRUMENTATION N/A General Spine Cervical Class I - Clean SPINAL CORD MONITORING N/A General Cl ass II - Clean Contaminated Surgeon Surgeon Role Service Panel Gabriel Horner MD Primary Orthopaedics 1 Denis Blackman MD Resident - Assisting Minor Pr ocedures 1 Case Notes C-ARM Special Needs Fluoroscopy, microscope, gw traction, osi table documented in this encounter Social History Tobacco Use Types Packs/Day Years Used Date Smoking Tobacco: Former Cigarettes 1.5 9 1 994 - 2002 Smokeless Tobacco: Never Alcohol Use Standard Drinks/Week Comments Not Currently 0 (1 standard drink = 0.6 oz pur e alcohol) Sex and Gender Information Value Date Recorded Sex Assigned at Not on file 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 Gender Identity Male 02/04/2019 10:52 AM CDT Sexual Orientation Straight 02/04/2019 10 :52 AM CDT documented as of this encounter Last Filed Vital Signs Vital Sign Reading Time Taken Comments Blood Pressure 129/91 02/16/2019 8:50 AM CDT Pulse 84 02/16/2019 1:00 PM CDT Temperature 37.3 ??C (99.1 ??F) 02/16/2019 1:00 PM CD T Respiratory Rate 14 02/16/2019 1:00 PM CDT Oxygen Saturation 94% 02/16/2019 1:00 PM CDT Inhaled Oxygen Concentration - - Weight 93.4 kg (206 lb) 02/16/2019 8:50 AM CDT Height 188 cm (6' 2 ) 02/16/2019 8:50 AM CDT Body Mass Index 26.45 02/16/2019 8:50 AM CDT documented in this encounter Discharge Summaries * Aneta Becerra NP - 02/17/2019 8:53 AM CDT Inpatient Discharge Summary Inpatient Spine Cervical Discharge Summary Admitting Provider: Gabriel Horner MD Discharge Provider: Gabriel Horner MD Primary Care Physician at Discharge: Jayla Phoenix MD [phone] Admission Date: 02/16/2019 Discharge Date: 02/17/2019 Primary Discharge Diagnosis: Cervical disc herniation Secondary Discharge Diagnosis: Cervical disc herniation Cervical radiculopathy Fusion of spine of cervical region * No resolved hospital problems. * DETAILS OF HOSPITAL STAY Date of Admission: 02/16/2019 Date of Discharge: 02/17/2019 Operative Procedures Performed: Procedure(s): REMOVAL HARDWARE SPINE- Removal of C5-C6 anterior cervical plate, C6-C7 anterior cervical discectomy and fusion with instrumentation, allograft, autograft, spinal cord monitoring cut to close 3 hours FUSION CERVICAL ANTERIOR DISCECTOMY WITH INSTRUMENTATION SPINAL CORD MONITORING Chief Complaint: Neck Pain and Weakness History of Present Illness: The patient is a 48 y.o. year old male cared for by Dr. aGbriel Horner. The risks, benefits, alternatives and complications of an C5-6 Removal of Hardware with C6- 7 Anterior Cervical Discectomy and Fusion were discussed with the patient at length prior to surgery. The patient elected to proceed with a surgical intervention given the significant influence on their quality of life. Informed consent was obtained prior to surgery. Physical Exam: On the day of discharge, the patient was afebrile with stable vital signs. Examination of the incision was clean, dry and intact. Pain was adequately maintained on oral opiates. Hospital Course: Mr. Vasques was admitted to the hospital and taken to the operating room for a C5-6 Removal of Hardware with C6-7 Anterior Cervical Discectomy and Fusion. He was taken to the postoperative recoveryroom and then transferred to the orthopedic floor. He received 24 hours of antibiotics postoperatively for surgical prophylaxis. He was able to wean away from intravenous narcotics. He was able to void without difficutly and AIDE removed without difficulty. He was able to tolerate a regular diet. He was able to mobilize with nursing. The patient had post operative images. Cervical collar on during admission & should be worn at all times. He was felt to be stable for discharge to home on 02/17/19. Kristian Vasques Home Medication Instructions OFELIA:[id number] Printed on:02/17/19 5947 Medication Information acetaminophen 500 mg capsule Take 2 capsules (1,000 mg total) by mouth every 8 (eight) hours baclofen (LIORESAL) 10 mg tablet Take 1 tablet (10 mg total) by mouth every 8 (eight) hours cholestyramine-aspartame 4 gram powder every morning gabapentin (NEURONTIN) 300 mg capsule Take 1 capsule by mouth daily for 3 days, then increase to 1 capsule twice daily for 3 days, then 1capsule three times a day thereafter. Do not stop medication abruptly losartan (COZAAR) 25 mg tablet 75 mg nightly oxyCODONE (ROXICODONE) 5 mg immediate release tablet Take 1 tablet (5 mg total) by mouth every 4 (four) hours as needed for pain for up to 7 days senna-docusate (PERICOLACE) 8.6-50 mg Take 2 tablets by mouth 2 (two) times a day May increase to 4 tablets twice daily if needed. HOLD medication for diarrhea. Other Procedures: None Condition on Discharge: Stable Cosigned by Gabriel Horner MD at 02/17/2019 9:51 AM CDT documented in this encounter Discharge Instructions * Discharge Instructions* Aneta Becerra NP - 02/17/2019 8:51 AM CDT POSTOPERATIVE INSTRUCTIONS FOR CERVICAL FUSION 1. CERVICAL PRECAUTIONS: Wear the collar you were given. If you were given a collar and told to wear it, you need to wear it at least 23 hours of the day. Removing the collar to clean your neck and eat is acceptable. Do not flex (bring your head to your chest) or extend (lift your chin up high and away from your chest) unless your surgeon says it???s OK. You should sleep with your head elevated, a recliner is good. 2. DIET: You have no specific restrictions on your diet, soft foods are best if we operated on the front of your neck. If you are a diabetic it is essential to have control of you glucose levels, if they are high you are at high risk for infection. Advance your diet as tolerated. You may have difficulties with constipation following surgery. Drink plenty of water and eat appropriately. If you have constipation longer than 5 days or any nausea or vomiting, call the office. You may take a multivitamin daily. You may take your previously prescribed/recommended vitamin D supplement. You should take a calcium supplement daily once you are no longer constipated. You should not take any extra vitamins, supplements or herbal medications until at least two weeks after your surgery date. If you have questions or concerns please call the office or as your hospital staff before leaving. 3. DISCOMFORT: The amount of pain you will experience is variable. If you have pain that cannot be controlled with the medicine you have been discharged with, you should notify your physician's office. You may have some aches and pains in your neck and/or arms. Some patients complain of tightness or a deep ache in their back, neck or between their shoulder blades. This is usually due to sore and tight muscles. Resting and/or applying a warm or cold compress may help. This is normal and should get better in the next few weeks. To perform surgery your surgeon needed to place a breathing tube. It is normal to have a sore throat or feel like there is a ???lump?? in your throat. You may also have difficulty swallowing certain foods like rice or corn. This is normal and should get better within a few weeks. 4. INCISION CARE: Your incision is closed with dissolvable sutures. Once you are home your incisionshould be open to the air with steri strips. The steri strips will fall off on their own. Do not remove them. If you left the hospital with a dressing remove it one day after discharge. Do not apply any lotions or ointments to the incision, steri strips or surrounding skin. Do not place heat directly to the incision, ice is ok for no longer than 15 minutes at a time. Look at your incision everyday and if you have any redness, swelling, any openings, or drainage call the office. 5. ACTIVITY: You should walk 6-8 times per day using your walker, if it was recommended you have one. You should attempt to increase the number of minutes you walk every day. Do not jog, run, bike orany other form of working out until you follow up or speak with your surgeon's nurse. No driving until your follow up and you have been cleared and you are off narcotics. Do not go back to work unless your surgeon has given you clearance. Do not lift anything above your head. Do not do any usability engineer like laundry or vacuuming that may cause you to bend or twist. 6. SHOWERS: You may shower with your incision covered with Glad press and seal. Keep the incision dry. If it gets wet pat dry and allow to dry completely. Do not take baths or sit in a hot tub or pool until your surgeon says it???s OK. 7. EMERGENT CARE: Call your physician???s office if any of the following occur: Temperature above 101 F/38.5 C. Any increasing wound pain, redness, swelling, or drainage around the incision. If you have any change or development of decreased sensation, numbness, tingling or decreased function in your arms, hands, legs, or feet or if you have any difficulty controlling your bowels or bladder. Notify the office if you experience any shortness of breath, chest pain, or difficulty swallowing. If you feel that you are having an increase in swelling in your throat. If you have any other problems orquestions, please call your doctor???s office nurse [phone]. After hours, weekends, or holidays call the orthopedic exchange at [phone]. 7. MEDICATIONS: Adjustments may have been made to your home medications postoperatively refer to medication recommendations for what to take at home. Do not resume blood thinners until two weeks postoperatively. Call the office before you resume blood thinners. Do not take anti-inflammatory medications (such as - Motrin, Advil, Ibuprofen, Celebrex, and Naprosyn) unless your surgeon says it???s OK. These medications can keep your bones from healing properly after surgery. 8. APPOINTMENTS: You will come back to see your surgeon, your surgeons nurse, or an [employer] approximately six weeks after your surgery. Please call [phone] if you need to change an appointment. Do not see your dentist for six months, call your surgeons office if you have questions. documented in this encounter Medications at Time of Discharge oxyCODONE (ROXICODONE) 5 mg immediate release tabletIndication s:Pain Take 1 tablet (5 mg total) by mouth every 4 (four) hours as needed for pain for up to 7 days 42 tablet 02/16/2019 9 acetaminophen 500 mg capsule Take 2 capsules (1,000 mg total) by mouth every 8 (eight) hours 30 tablet 02/17/2019 9 baclofen (LIORESAL) 10 mg tabletIndication s:Muscle spasm Take 1 tablet (10 mg total) by mouth every 8 (eight) hours 90 tablet 02/17/2019 9 cholestyramine-a spartame 4 gram powderIndication s:for bowel resection every morning 09/18/2010 0 gabapentin (NEURONTIN) 300 mg capsule Take 1 capsule by mouth daily for 3 days, then increase to 1 capsule twice daily for 3 days, then 1 capsule three times a day thereafter. Do not stop medication abruptly 90 capsule 01/23/2019 9 losartan (COZAAR) 25 mg tabletIndication s:hypertension 75 mg nightly 01 9 senna-docusate (PERICOLACE) 8.6-50 mgIndications:co nstipation Take 2 tablets by mouth 2 (two) times a day May increase to 4 tablets twice daily if needed. HOLD medication for diarrhea. 80 tablet 1 02/17/2019 9 documented as of this encounter Ordered Prescriptions Prescription Sig Dispense Quantity Refills Last Filled Start Date End Date senna-docusate (PERICOLACE) 8.6-50 mgIndications:cons tipation Take 2 tablets by mouth 2 (two) times a day May increase to 4 tablets twice daily if needed. HOLD medication for diarrhea. 80 tablet 1 02/17/2019 9 baclofen (LIORESAL) 10 mg tabletIndications: Muscle spasm Take 1 tablet (10 mg total) by mouth every 8 (eight) hours 90 tablet 02/17/2019 9 acetaminophen 500 mg capsule Take 2 capsules (1,000 mg total) by mouth every 8 (eight) hours 30 tablet 02/17/2019 9 oxyCODONE (ROXICODONE) 5 mg immediate release tabletIndications: Pain Take 1 tablet (5 mg total) by mouth every 4 (four) hours as needed for pain for up to 7 days 42 tablet 02/16/2019 9 documented in this encounter Discharge Disposition Disposition Code Departure Means Destination Discharge to home or self care documented in this encounter Progress Notes * Aneta Becerra NP - 02/17/2019 8:08 AM CDT Daily Progress Note Subjective Chief complaint of POD#1 s/p C5-6 Removal of Hardware, C6-C7 ACDF. Interval History: No issues overnight. Pain controlled on current pain regimen. Denies numbness/tingling in bilateral upper extremities. Has been out of bed to bathroom several times overnight - voiding without difficulty. Reports sore throat, but able to swallow water, pills, and ate some dinner last night. Denies chest pain or shortness of breath. Emesis: - Flatus: + Last BM: prior to surgery Pain: controlled On current pain regimen Objective Vitals: 24hr Min/Max: Temp Min: 36.5 ??C (97.7 ??F) Max: 37.3 ??C (99.1 ??F) Pulse Min: 68 Max: 105 BP Min: 120/78 Max: 163/108 Resp Min: 11 Max: 18 SpO2 Min: 91 % Max: 97 % Most Recent: Vitals: 02/17/19 0630 BP: 120/78 Pulse: 79 Resp: 14 Temp: 36.7 ??C (98.1 ??F) SpO2: 96% I/O last 2 completed shifts: In: 7073.8 [P.O.:500; I.V.:6073.8; IV Piggyback:500] Out: 3750 [Urine:3650; Blood:100] I/O this shift: In: 1038 [I.V.:1038] Out: - Drain output - 0ml since surgery Physical Exam: Mental Status: alert, oriented x4, appropriate affect, opens eyes to sound, and follows commands Respiratory: respirations unlabored Abdomen: soft, non-distended, passing flatus and bowel sounds present Extremities: extremities normal, atraumatic, no cyanosis or edema, sensation intact : sensation intact, continent and voiding without difficulty Skin: Skin color, texture, turgor normal. No rashes or lesions Anterior Cervical dressing CDI, [id number] Neurologic: Sensory: light touch intact C5-T1 bilaterally Muscles: Right Upper Extremities: 5/5 except 4+/5 tricep Left Upper Extremities: 5/5 Pulses: 2+ and symmetric radial bilaterally VTE Prophylaxis: SCD Lab/Radiology/Diagnostic Review: No recent results to review Assessment/Plan Active Problems: Cervical disc herniation Cervical radiculopathy Fusion of spine of cervical region Plan- Pain control: continue Oxycodone, Baclofen, scheduled Tylenol, Gabapentin Imaging: Upright cervical x-rays this morning after drain removed Fluids: d/c'd this morning - tolerating PO Rosario: n/a - voiding without difficulty Drains: d/c this morning Antibiotics: post-op completed DVT ppx: SCDs Diet: Regular Therapy: ambulate with nursing this morning, collar at all times Dispo plan: today pending drain removal & x-ray Cosigned by Gabriel Horner MD at 02/17/2019 9:51 AM CDT documented in this encounter H&P Notes * Denis Blackman MD - 02/16/2019 5:02 AM CDT Orthopaedic Surgery Pre-operative History and Physical Date of surgery: 02/16/2019 Orthopedic Attending: Gabriel Horner MD History of Present Illness: Kristian Vasques is a 48 y.o. male who presents for his planned surgery. Pre-op Diagnosis * Cervical disc herniation [M50.20] * Cervical radiculopathy [M54.12] * Fusion of spine of cervical region [M43.22] ? Planned procedures: REMOVAL HARDWARE SPINE- Removal of C5-C6 anterior cervical plate, C6-C7 anterior cervical discectomy and fusion with instrumentation, allograft, autograft, spinal cord monitoring cut to close 3 hours, N/A - Spine Thoracic FUSION CERVICAL ANTERIOR DISCECTOMY WITH INSTRUMENTATION, N/A - Spine Cervical SPINAL CORD MONITORING, N/A No major changes to plan and there is no reported relevant changes in his health since prior discussions either in clinic or via telephone. Prior note: 48 y.o. male [id number] with history of ACDF C5-6 and September of 2017 comes in with a newonset right arm pain over the last 1 month. He was doing some house remodeling but does not remember an acute injury. He has pain on the right side of his neck, along the scapula, posterior shoulder,posterior arm in the triceps, and into the thumb, index, and long fingers. He feels like his arm isweak. He has trouble shaving. Denies any issues with writing, doing buttons, other other fine motortasks. He denies any gait instability. He is doing well prior to about a month ago after his surgery. He has tried oral steroids, [place], tizanidine. He continues to have significant right arm pain and has trouble sleeping at night. He denies any changes in bowel or bladder function. Denies any fever or chills. ?? ? PAST MEDICAL HISTORY Patient Active Problem List Diagnosis ??? Cervical pain (neck) ??? Cervical radiculopathy at C7 ??? Cervical disc herniation ??? Cervical radiculopathy ??? Fusion of spine of cervical region Medications (prior to current encounter): No current facility-administered medications on file prior to encounter. Current Outpatient Medications on File Prior to Encounter Medication Sig ??? gabapentin (NEURONTIN) 300 mg capsule Take 1 capsule by mouth daily for 3 days, then increase to 1 capsule twice daily for 3 days, then 1 capsule three times a day thereafter. Do not stop medication abruptly (Patient taking differently: 3 (three) times a day Take 1 capsule by mouth daily for 3 days, then increase to 1 capsule twice daily for 3 days, then 1 capsule three times a day thereafter. Do not stop medication abruptly) ??? HYDROcodone-acetaminophen (NORCO) 10-325 mg per tablet Take 1 tablet by mouth every 6 (six) hours as needed for pain ??? losartan (COZAAR) 25 mg tablet 75 mg nightly ??? tiZANidine (ZANAFLEX) 4 mg tablet TK 1 T PO Q 6 H for pain Past Surgical History: Procedure Laterality Date ??? ANTERIOR CERVICAL DISCECTOMY W/ FUSION 2017 ??? BOWEL RESECTION 2009 Allergies Allergen Reactions ??? Iodinated Contrast- Oral And Iv Dye Rash Social History Social History Narrative ??? Not on file Family History: No known relevant bleeding, clotting, or problems with anesthesia were identified. Review of Systems: 10pt ROS was negative except as per HPI. Physical Exam: -No major changes from last visit, see prior note Imaging: Pertinent radiology was reviewed. ASSESSMENT Kristian Vasques is a 48 y.o. male who presents for planned REMOVAL HARDWARE SPINE- Removal of C5-C6 anterior cervical plate, C6-C7 anterior cervical discectomy and fusion with instrumentation, allograft, autograft, spinal cord monitoring cut to close 3 hours, N/A - Spine Thoracic FUSION CERVICAL ANTERIOR DISCECTOMY WITH INSTRUMENTATION, N/A - Spine Cervical SPINAL CORD MONITORING, N/A PLAN Proceed with surgery as planned. Post op protocol as previously established. This patient will likely be provided with an opioid prescription after surgery. The reason for thisprescription is for pain control following Surgery. Alternatives to opioid medications, including no pain medication, and over the counter pain medication were considered, but thought to be inadequate given the typical level of pain associated with this surgery. Thus, an appropriate duration of pain medication will be prescribed. Cosigned by Gabriel Horner MD at 02/16/2019 1:06 PM CDT documented in this encounter Nursing Notes * Magaly Quintanilla RN - 02/17/2019 10:45 AM CDT Discharge instructions signed and reviewed with patient and spouse. Questions and concerns addressed. Rx provided. IVs discontinued. Denies complaints at this time. Patient discharged home with spouse. documented in this encounter Miscellaneous Notes * Plan of Care - Tejal Zuniga RN - 02/17/2019 12:51 PM CDT Goals: Clinical Goals for the Shift: Pain control, Use of IS and ankle pumps, prepare for discharge Summary: Pain controlled, patient demonstrated use of ankle pumps and IS, reeady for discharge Problem: Health Behavior: Goal: Understanding of discharge needs will improve Outcome: Adequate for Discharge Goal: Identification of resources available to assist in meeting health care needs will improve Outcome: Adequate for Discharge Problem: Activity: Goal: Ability to avoid complications of mobility impairment will improve Outcome: Adequate for Discharge Goal: Ability to tolerate increased activity will improve Outcome: Adequate for Discharge Problem: Bowel/Gastric: Goal: Gastrointestinal status for postoperative course will improve Outcome: Adequate for Discharge Problem: Lack of Knowledge: Goal: Ability to verbalize activity precautions or restrictions will improve Outcome: Adequate for Discharge Goal: Knowledge of the prescribed therapeutic regimen will improve Outcome: Adequate for Discharge Problem: Coping: Goal: Ability to verbalize feelings will improve Outcome: Adequate for Discharge Problem: Fluid Volume: Goal: Will maintain adequate fluid volume Outcome: Adequate for Discharge Problem: Physical Regulation: Goal: Neurologic status will improve Outcome: Adequate for Discharge Goal: Ability to maintain clinical measurements within normal limits will improve Outcome: Adequate for Discharge Problem: Respiratory: Goal: Ability to maintain adequate ventilation will improve Outcome: Adequate for Discharge Problem: Sensory: Goal: Pain level will decrease Outcome: Adequate for Discharge Problem: Skin Integrity: Goal: Signs of wound healing will improve Outcome: Adequate for Discharge Goal: Will remain free from infection Outcome: Adequate for Discharge * Plan of Rodrigo - Tejal Amin RN - 02/16/2019 11:13 PM CDT Problem: Health Behavior: Goal: Understanding of discharge needs will improve Outcome: Progressing Goal: Identification of resources available to assist in meeting health care needs will improve Outcome: Progressing Problem: Activity: Goal: Ability to avoid complications of mobility impairment will improve Outcome: Progressing Goal: Ability to tolerate increased activity will improve Outcome: Progressing Problem: Bowel/Gastric: Goal: Gastrointestinal status for postoperative course will improve Outcome: Progressing Problem: Lack of Knowledge: Goal: Ability to verbalize activity precautions or restrictions will improve Outcome: Progressing Goal: Knowledge of the prescribed therapeutic regimen will improve Outcome: Progressing Problem: Coping: Goal: Ability to verbalize feelings will improve Outcome: Progressing Problem: Fluid Volume: Goal: Will maintain adequate fluid volume Outcome: Progressing Problem: Physical Regulation: Goal: Neurologic status will improve Outcome: Progressing Goal: Ability to maintain clinical measurements within normal limits will improve Outcome: Progressing Problem: Respiratory: Goal: Ability to maintain adequate ventilation will improve Outcome: Progressing Problem: Sensory: Goal: Pain level will decrease Outcome: Progressing Problem: Skin Integrity: Goal: Signs of wound healing will improve Outcome: Progressing Goal: Will remain free from infection Outcome: Progressing Goals: Clinical Goals for the Shift: Pain control, IS, ankle pumps Summary: * Plan of Rodrigo - Kely Pitt RN - 02/16/2019 6:39 PM CDT Problem: Health Behavior: Goal: Understanding of discharge needs will improve Outcome: Progressing Goal: Identification of resources available to assist in meeting health care needs will improve Outcome: Progressing Problem: Activity: Goal: Ability to avoid complications of mobility impairment will improve Outcome: Progressing Goal: Ability to tolerate increased activity will improve Outcome: Progressing Problem: Bowel/Gastric: Goal: Gastrointestinal status for postoperative course will improve Outcome: Progressing Problem: Lack of Knowledge: Goal: Ability to verbalize activity precautions or restrictions will improve Outcome: Progressing Goal: Knowledge of the prescribed therapeutic regimen will improve Outcome: Progressing Problem: Coping: Goal: Ability to verbalize feelings will improve Outcome: Progressing Problem: Fluid Volume: Goal: Will maintain adequate fluid volume Outcome: Progressing Problem: Physical Regulation: Goal: Neurologic status will improve Outcome: Progressing Goal: Ability to maintain clinical measurements within normal limits will improve Outcome: Progressing Problem: Respiratory: Goal: Ability to maintain adequate ventilation will improve Outcome: Progressing Problem: Sensory: Goal: Pain level will decrease Outcome: Progressing Problem: Skin Integrity: Goal: Signs of wound healing will improve Outcome: Progressing Goal: Will remain free from infection Outcome: Progressing Goals: Clinical Goals for the Shift: pain control, neuro vasc check, monitor drain and incision Summary: Pt oriented x4, on 2L of oxygen, neuro intact, pt c/o right shoulder and throat pain, dilaudid given once for pain. at bedside, pt voiding. Kely Pitt RN * Op Note - Gabriel Horner MD - 02/16/2019 1:54 PM CDT SURGEON Harvey Horner MD FIRST BANQUET STEWARD aJe Blackman MD ANESTHESIA General endotracheal PREOPERATIVE DIAGNOSES 1. Pre-Op Diagnosis Codes: * C6-7 disc herniation [M50.20] * Cervical radiculopathy [M54.12] * prior C5-6 Fusion [M43.22] POSTOPERATIVE DIAGNOSES 1. same OPERATIVE PROCEDURE 1. Anterior cervical diskectomy at C C6/7 including bilateral foraminotomies for decompression of the spinal cord and nerve roots. 2. Anterior cervical arthrodesis at C C6/7using a 8 mm structural allograft and local bone autograft. 3. Anterior cervical instrumention at C C6/7 using an Biomet Maxan anterior cervical plate . 4. Use of intraoperative microscope and microsurgical techniques for ACDF/I 5. Use of intraoperative neuromonotoring 6. Removal of C56 plate and fusion exploration INDICATIONS FOR PROCEDURE Kristian Vasques is a 48 y.o. male who presents with radiculopathy. The operative risks, goals and alternatives have been discussed at length. They expressed understanding and asked me to proceed with surgery. Please see my dictated office notes for details of these conversations. OPERATIVE FINDINGS c56 is fused, c67 disc herniation PROCEDURE The patient was brought into the operating room. Prior to proceeding, a complete time out was takenand recorded in OpTime to include identification of the patient, identification of the procedure, identification of the operative site, presence of all required radiographs and/or equipment, and the timely administration of appropriate antibiotics. Next, the anesthesia staff placed the patient under general anesthesia and performed intubation. The patient was transferred onto the operating room table in a supine position. A gel roll was placed behind the neck to place the neck in gentle extension. All bony prominences were well padded. The shoulders were taped down to facilitate radiographic exposure of the spine. Neuromonitoring leads were placed for SSEP and TcMEP data. Blood pressure goals were discussed with anesthesia with a request to keep at their preoperative baseline or higher. The levels were confirmed with lateral fluoroscopy and our incision planned. A new incision at the C6-7 level was marked on the left side, below his prior incision to minimize the amount of scar I would have to dissect through. After infiltration of local anesthesia, a left-sided incision in a skin crease was made with a scalpel. There was a good amount of scar tissue throughout the dissection planes. The underlying platysma was identified and divided. We then developed the avascular plane between the throat and strap muscles medially and the sternocleidomastoid muscle and carotid artery laterally. There was lots of scarring over the C5-6 plate which was sharply removed with cautery. Prevertebral fascia was stripped from the anterior aspect of the vertebral column down to C7. The C56 plate was removed and I confirmed a good fusion at this level during the fusion exploration. The longus colli was then reflected and self-retaining retractors were applied at C6-7. The operative microscope was then sterilely draped and brought into field and used for the remainder of the operation. The high-speed drill was used to remove any anterior osteophytes. [place] distraction posts were placed. The disk space was placed under distraction. A complete discectomy was accomplished using a combination of curettes and pituitary rongeurs. Once the disk had been removed down to the level of post erior longitudinal ligament, we then used the intradiscal paddle distractors to restore the disk height to normal and this height was maintained with the [place] post distractors. A high-speed drill was used to remove posterior osteophytes. The posterior longitudinal ligament was divided and resected, and generous bilateral foraminotomies were accomplished. There was a subligamentous disc herniation on the right side and an extruded disc fragment within the right foramen, which were removed. At this point, the spinal cord and nerve roots appeared well decompressed. Excellent hemostasis wasobtained. The high-speed drill was used to decorticate the endplates and these bone shavings kept for later arthrodesis. The disk space defect was then sized and we selected a 8 mm structural lordotic allograft spacer. This was supplemented with local bone autograft from the decortication. The allograft was then inserted and countersunk. The [place] posts were then removed and the post holes filled with bonewax. The high-speed drill wasused to further contour the vertebral column to receive a plate. We then placed a separate anteriorcervical plate using a Biomet Maxan anterior cervical plate with 16 mm length screws. Locking mechanisms were observed to be engaged. Lateral fluoroscopy confirmed good position of the implanted hardware. The wound was then copiously irrigated with antibiotic-containing irrigation and excellent hemostasis was obtained. The self-retaining retractors were then removed and the wound closed in layers. The patient tolerated the procedure well and there were no complications. ESTIMATED BLOOD LOSS: 50 ml SPONGE AND INSTRUMENT COUNTS: Correct x2. ATTESTATION I, Harvey Horner MD, the attending physician was scrubbed and present from skin incision up to skin closure and directly participated in all critical portions of the surgery including the C 6 to C 7 anterior discectomy, fusion with instrumentation, removal of c56 plate and fusion exploration. I remained readily available for non-critical portions of this surgery including skin closure. Gabriel Horner MD * Brief Op Note - Denis Blackman MD - 02/16/2019 1:54 PM CDT Operative Progress Note Surgical Team: Surgeon(s) and Role: * Gabriel Horner MD - Primary * Denis Blackman MD - Resident - Assisting Anesthesiologist: Feliz Jaeger MD THREAD WINDER: Ileana Martinez CRNA Public Health Specialist: Laura Loya RN Public Health Specialist Relief: Viviane Martinez RN Scrub Relief: ST Padmini Scrub: Viviane Martinez RN DATE OF SURGERY : 02/16/2019 Preoperative Diagnosis: Pre-op Diagnosis * Cervical disc herniation [M50.20] * Cervical radiculopathy [M54.12] * Fusion of spine of cervical region [M43.22] Postoperative Diagnosis: Post-op Diagnosis * Cervical disc herniation [M50.20] * Cervical radiculopathy [M54.12] * Fusion of spine of cervical region [M43.22] Procedure(s): Procedure(s) (LRB): REMOVAL HARDWARE SPINE- Removal of C5-C6 anterior cervical plate, C6-C7 anterior cervical discectomy and fusion with instrumentation, allograft, autograft, spinal cord monitoring cut to close 3 hours(N/A) FUSION CERVICAL ANTERIOR DISCECTOMY WITH INSTRUMENTATION (N/A) SPINAL CORD MONITORING (N/A) Operative Findings: DDD C6-7 Estimated Blood Loss: 100 mL Intraoperative Fluids: Per anesthesia Specimens: No specimen collected in procedure Implants: Implant Name Type Inv. Item Serial No. Sugar Reprocess Operator Head Lot No. LRB No. Used MUSCULOSKELETAL TRANSPLANT [id number] FROZEN SPINE 7D LORDOTIC TRAPEZOID SPACER ALLOGRAFT -[id number] - [id number] MUSCULOSKELETAL TRANSPLANT [id number] Frozen Spine 7d LordoticTrapezoid Spacer Allograft [id number] Musculoskeletal Transplant N/A 1 [employer] [id number] MAXAN 10MM LEVEL 1 SPINE CERVICAL ANTERIOR PLATE BONE TITANIUM - [id number] [employer] [id number] Maxan 10mm Level 1 Spine Cervical Anterior Plate Bone Titanium [employer] N/A 1 [employer] [id number] 4MM 16MM FIX SCREW BONE - [id number] [employer] [id number] 4MM 16MM FIX SCREW BONE [employer] N/A 4 Blood/Blood Products Transfused: none Complications: None Condition on Discharge from the operating room was stable Denis Blackman MD Date: 02/16/2019 Time: 4:17 PM Cosigned by Gabriel Horner MD at 02/16/2019 5:24 PM CDT documented in this encounter Plan of Treatment Not on file documented as of this encounter Procedures Procedure Name Priority Date/Time Associated Diagnosis Comments XR SPINE CERVICAL 2 OR 3 VIEWS ED Urgent/IP Urgent 02/17/2019 7:32 AM CDT FL FLUOROSCOPY < 1 HOUR IP Routine 02/16/2019 8:53 PM CDT EGFR STAT 02/16/2019 4:20 PM CDT CBC WITHOUT DIFFERENTIAL STAT 02/16/2019 4:20 PM CDT BASIC METABOLIC PANEL STAT 02/16/2019 4:20 PM CDT SPINAL CORD MONITORING 9 1:04 PM CDT Cervical disc herniation Cervical radiculopathy Fusion of spine of cervical region Case Notes C-ARM Special Needs Fluoroscopy, microscope, gw traction, osi table FUSION CERVICAL ANTERIOR DISCECTOMY WITH INSTRUMENTATION 02/16/2019 1:04 PM CDT Cervical disc herniation Cervical radiculopathy Fusion of spine of cervical region Case Notes C-ARM Special Needs Fluoroscopy, microscope, gw traction, osi table REMOVAL HARDWARE SPINE 9 1:04 PM CDT Cervical disc herniation Cervical radiculopathy Fusion of spine of cervical region Case Notes C-ARM Special Needs Fluoroscopy, microscope, gw traction, osi table documented in this encounter Results * XR Spine Cervical 3 Vw (02/17/2019 7:32 AM CDT) Anatomical Region Laterality Modality Spine N/A Computed Radiogr aphy 02/17/2019 7:46 AM CDT Impressions 02/17/2019 7:46 AM CDT New anterior cervical discectomy and instrumented fusion at C6-C7 and removal of instrumentation at the anterior cervical discectomy and fusion at C5-C6. Electronically signed by: Dom Llamas M.D. Narrative 02/17/2019 7:46 AM CDT EXAMINATION: Cervical spine 2 or 3 views HISTORY: ??Cervical spondylosis FINDINGS: 3 views of the cervical spine are submitted for interpretation. Comparison is made to the prior examination on 01/23/2019. There is new anterior cervical discectomy and instrumented fusion at C6-C7. There has been interval removal of the anterior plate and screws at C5-C6 where there is also discectomy with interbody fusion. Prevertebral soft tissue swelling, soft tissue gas and surgical drain are present. The nonfused disc heights are normal. There is kyphosis in the cervical spine. Procedure Note Dom Llamas MD - 02/17/2019 EXAMINATION: Cervical spine 2 or 3 views HISTORY: Cervical spondylosis FINDINGS: 3 views of the cervical spine are submitted for interpretation. Comparison is made to the prior examination on 01/23/2019. There is new anterior cervical discectomy and instrumented fusion at C6-C7. There has been interval removal of the anterior plate and screws at C5-C6 where there is also discectomy with interbody fusion. Prevertebral soft tissue swelling, soft tissue gas and surgical drain are present. The nonfused disc heights are normal. There is kyphosis in the cervical spine. IMPRESSION: New anterior cervical discectomy and instrumented fusion at C6-C7 and removal of instrumentation at the anterior cervical discectomy and fusion at C5-C6. Electronically signed by: Dom Llamas M.D. Gabriel Horner MD IMG XR PROCEDURES Final Re sult * FL Fluoroscopy < 1 Hour (02/16/2019 8:53 PM CDT) Narrative [email or web address] - 02/17/2019 9:27 AM CDT The images from this study are not interpreted by Radiology. ??Please refer to the physician's procedure / OR operative note. Gabriel Horner MD IMG FLUOROSCOPY PROCEDURES Final Result Performing Organization Address City/[facility] Co de Phone Number [email or web address] * eGFR (02/16/2019 4:20 PM CDT) eGFR >60 mL/min/1.7 3 m2 [facility] Comment: Interpretive Data Reference Interval Normal ?>/= 90 mL/min/1.73m2 Mildly decreased* ? 60 - 89 mL/min/1.73m2 Mildly to moderately decreased ?45 - 59 mL/min/1.73m2 Moderately to severely decreased ??30 - 44 mL/min/1.73m2 Severely decreased ?15 - 29 mL/min/1.73m2 Kidney Failure ?< 15 ??mL/min/1.73m2 *Relative to young adult level If -[place] multiply value by 1.16. Estimated glomerular filtration [...] was last reviewed 2016. Blood specimen (specimen) 02/16/2019 4:20 PM CDT 02/16/2019 4:33 PM CDT Gabriel Horner MD LAB BLOOD ORDERABLES Final Result Performing Organization Address City/[facility]/ZIP Co de Phone Number [facility] [id number] [facility]. [place] [address] * Basic metabolic panel (02/16/2019 4:20 PM CDT) Pathologist [facility] Sodium 140 135 - 145 mmol/L [facility] Potassium, pl 4.5 3.3 - 4.9 mmol/L [facility] Chloride 104 97 - 110 mmol/L [facility] CO2 23 22 - 32 mmol/L [facility] Anion gap 13 2 - 15 mmol/L [facility] BUN 12 8 - 25 mg/dL [facility] Creatinine 1.20 0.80 - 1.30 mg/dL [facility] Glucose 99 70 - 199 mg/dL [facility] Comment: Interpretive Data Fasting glucose >/= 126 [...] 2017. Calcium 8.7 8.5 - 10.3 mg/dL [facility] Blood specimen (specimen) 02/16/2019 4:20 PM CDT 02/16/2019 4:33 PM CDT Gabriel Horner MD LAB BLOOD ORDERABLES Final Result [facility] [id number] [facility]. Department [place] [address] * (ABNORMAL) CBC without differential (02/16/2019 4:20 PM CDT) Pathologist [facility] WBC 10.0(H) 3.8 - 9.9 K/cumm [facility] Hgb 12.4(L) 13.0 - 17.5 g/dL [facility] Hct 37.9(L) 38.9 - 50.3 % [facility] Plt 240 150 - 400 K/cumm [facility] MPV 9.3 9.1 - 12.3 fL [facility] RBC 4.20(L) 4.30 - 5.80 M/cumm [facility] MCV 90.2 81.3 - 96.4 fL [facility] MCH 29.5 27.1 - 33.3 pg [facility] MCHC 32.7 32.3 - 35.7 g/dL [facility] RDW CV 12.9 11.1 - 14.9 % [facility] RDW SD 42.5 35.7 - 48.1 fL [facility] NRBC abs 0.00 0.00 - 0.01 K/cumm [facility] Blood specimen (specimen) 02/16/2019 4:20 PM CDT 02/16/2019 4:33 PM CDT Gabriel Horner MD LAB BLOOD ORDERABLES Final Result Performing Organization Address City/State/[facility] Co de Phone Number [facility] [id number] [facility]. Department [place] [address] documented in this encounter Visit Diagnoses Diagnosis Cervical disc herniation- Primary Displacement of cervical intervertebral disc without myelopathy Cervical radiculopathy Brachial neuritis or radiculitis nos Fusion of spine of cervical region Cervical disc herniation Displacement of cervical intervertebral disc without myelopathy Cervical radiculopathy Brachial neuritis or radiculitis nos Fusion of spine of cervical region documented in this encounter Admitting Diagnoses Diagnosis Cervical disc herniation Displacement of cervical intervertebral disc without myelopathy Cervical radiculopathy Brachial neuritis or radiculitis nos Fusion of spine of cervical region documented in this encounter Administered Medications Inactive Administered Medications - up to 3 most recent administrations Medication Order MAR Action Action Date Dose Rate Site acetaminophen (TYLENOL) tablet 1,000 mg 1,000 mg, oral, Every 8 hours, First dose on 02/16/19 at 2100 Given 02/17/2019 5:17 AM CDT 1,000 mg Given 02/16/2019 9:17 PM CDT 1,000 mg bacitracin 50,000 Units in sodium chloride 0.9 % 1,000 mL irrigation solution As needed, Starting on Sat02/16/19 at 1409, Intra-Op Given 02/16/2019 2:09 PM CDT 1,000 mL Surgical Site baclofen (LIORESAL) tablet 10 mg 10 mg, oral, Every 8 hours scheduled, First dose on Sat02/16/19 at 2200, Indications: Muscle spasmIndications:Muscle spasm Given 02/17/2019 5:17 AM CDT 10 mg Given 02/16/2019 9:17 PM CDT 10 mg gabapentin (NEURONTIN) capsule 100 mg 100 mg, oral, 3 times daily, First dose on Sat02/16/19 at 2100, Indications: Neuropathic PainIndications:Neuropathic Pain Given 02/17/2019 7:44 AM CDT 100 mg Given 02/16/2019 9:17 PM CDT 100 mg HYDROmorphone (DILAUDID) injection 0.2 mg 0.2 mg, intravenous, Administer over 2 Minutes, Every 3 hours PRN, 2nd line for pain, Starting on Sat02/16/19 at 1940, Indications: PainIndications:Pain Lactated Ringer's (LR) infusion 125 mL/hr, intravenous, Continuous, Starting on Sat02/16/19 at 1645, Phase I New Bag 02/16/2019 5:16 PM CDT 125 mL/hr 125 mL/ hr losartan (COZAAR) tablet 75 mg 75 mg, oral, Daily, First dose on Sat02/16/19 at 1915 Given 02/17/2019 7:42 AM CDT 75 mg Given 02/16/2019 7:45 PM CDT 75 mg ondansetron (ZOFRAN) injection 4 mg 4 mg, intravenous, Administer over 2 Minutes, Every 6 hours PRN, nausea, vomiting, if not tolerating PO, Starting on Sat02/16/19 at 1752, Indications: nausea and vomitingIndications:nausea and vomiting ondansetron ODT (ZOFRAN-ODT) disintegrating tablet 4 mg 4 mg, oral, Every 6 hours PRN, nausea, vomiting, Starting on Sat02/16/19 at 1752, Indications: nausea and vomitingIndications:nausea and vomiting oxyCODONE (ROXICODONE) tablet 5 mg 5 mg, oral, Every 4 hours PRN, 1st line for pain, Starting on Sat02/16/19 at 1938, Indications: PainIndications:Pain Given 02/17/2019 7:43 AM CDT 5 mg Given 02/17/2019 1:33 AM CDT 5 mg Given 02/16/2019 9:17 PM CDT 5 mg senna-docusate (PERICOLACE) 8.6-50 mg per tablet 2 tablet 2 tablet, oral, 2 times daily, First dose on Sat02/16/19 at 2100, Hold for diarrhea., Indications: constipationIndications:constipa tion Given 02/17/2019 7:43 AM CDT 2 tablets sodium chloride 0.9% infusion 100 mL/hr, intravenous, Continuous, Starting on Sat02/16/19 at 1830, Phase I & Post-op Floor New Bag 02/17/2019 7:51 AM CDT 100 mL/hr 100 mL/hr New Bag 02/16/2019 6:17 PM CDT 100 mL/hr 100 mL/hr thrombin-recombinant 5,000 unit solution As needed, Starting on Sat02/16/19 at 1409, Intra-Op Given 02/16/2019 2:09 PM CDT 5,000 Units Surgical Site documented in this encounter Discontinued Medications Medication Sig Discontinue Reason Start Date End Da te tiZANidine (ZANAFLEX) 4 mg tablet TK 1 T PO Q 6 H for pain Stop Taking at Discharge 01/18/2019 02/17/2019 HYDROcodone-acetaminophe n (NORCO) 10-325 mg per tabletIndications:Pain Take 1 tablet by mouth every 6 (six) hours as needed for pain Stop Taking at Discharge 02/17/2019 mupirocin (BACTROBAN) 2 % ointmentIndications:Cerv ical radiculopathy at C7 Place small amount of ointment in each nostril with a q-tip twice daily for 5 days prior to surgery Stop Taking at Discharge 02/04/2019 02/17/2019 multivitamin capsuleIndications:Vitam in Deficiency Prevention Take 1 capsule by mouth every morning Stop Taking at Discharge 02/17/2019 sulfamethoxazole-trimeth oprim (BACTRIM DS,SEPTRA DS) 800-160 mg per tabletIndications:Abnorm al urinalysis Take 1 tablet by mouth 2 (two) times a day for 5 days Stop Taking at Discharge 02/12/2019 02/17/2019 documented as of this encounter Active and Recently Administered Medications Times are shown in CDT. Scheduled Medication Order 02/15/2019 02/16/2019 02/17/2019 acetaminophen (TYLENOL) tablet 1,000 mg 1,000 mg, oral, Every 8 hours, First dose on Sat02/16/19 at 2100 2116 (Given - Provider: Tejal Amin RN) 0517 (Given - Provider: Tejal Amin RN) baclofen (LIORESAL) tablet 10 mg 10 mg, oral, Every 8 hours scheduled, First dose on Sat02/16/19 at 2200, Indications: Muscle spasm 2116 (Given - Provider: Tejal Amin RN) 05 (Given - Provider: Tejal Amin RN) ceFAZolin (ANCEF) 1 gram/10 mL in sterile water (premix) 2,000 mg (COMPLETED) 2,000 mg, intravenous, at 400 mL/hr, Administer over 3 Minutes, Once, On Sat02/16/19 at 0945, For 1 dose, Pre-Op, Administer within 60 minutes of incision., Indications: Prophylaxis, Surgical 1258 (Given - Provider: Ileana Martinez CRNA) ceFAZolin (ANCEF) 2,000 mg/20 mL in sterile water (premix) 2,000 mg (COMPLETED) 2,000 mg, intravenous, at 400 mL/hr, Administer over 3 Minutes, Every 8 hours, First dose on Sat02/16/19 at 2100, For 2 doses, Beginning 8 hours after last maile-procedural dose., Indications: Prophylaxis, Surgical 2120 (New Bag - Provider: Tejal Amin RN) 05 (New Bag - Provider: Tejal Amin RN)1014 (Stopped - Provider: Magaly Quintanilla RN) gabapentin (NEURONTIN) capsule 100 mg 100 mg, oral, 3 times daily, First dose on Sat02/16/19 at 2100, Indications: Neuropathic Pain 2116 (Given - Provider: Tejal Amin RN) 0744 (Given - Provider: Tejal Zuniga RN - Comment: PT/OT at 8:30) losartan (COZAAR) tablet 75 mg 75 mg, oral, Daily, First dose on Sat02/16/19 at 1915 1945 (Given - Provider: Kely Pitt RN) 0742 (Given - Provider: Tejal Zuniga RN) senna-docusate (PERICOLACE) 8.6-50 mg per tablet 2 tablet 2 tablet, oral, 2 times daily, First dose on Sat02/16/19 at 2100, Hold for diarrhea., Indications: constipation 2120 (Not Given - Provider: Tejal Amin RN - Reason: Patient/family refused) 0743 (Given - Provider: Tejal Zuniga RN - Comment: OT/PT at 8:30) vancomycin (VANCOCIN) 1,500 mg in sodium chloride 0.9% 250 mL IVPB (COMPLETED) 1,500 mg, intravenous, at 176.7 mL/hr, Administer over 90 Minutes, Once, On Sat02/17/19 at 0000, For 1 dose, Administer 12 hours after last pre-operative dose., Indications: Prophylaxis, Surgical 0203 (New Bag - Provider: Tejal Amin RN - Comment: Garment Looper mixed up medicaion. Barcode would not scan.)0345 (Stopped - Provider: Tejal Amin RN) vancomycin 1500 mg/250 mL in sodium chloride 0.9% (premix) 1,500 mg (COMPLETED) 1,500 mg, intravenous, Administer over 90 Minutes, Once, On Sat02/16/19 at 1100, For 1 dose, Pre-Op, Indications: Prophylaxis, Surgical 1147 (New Bag - Provider: Raulito Helton RN)1256 (Stopped - Provider: Raulito Helton RN) Continuous Medication Order 02/15/2019 02/16/2019 02/17/2019 Lactated Ringer's (LR) infusion (CANCELED) 30 mL/hr, intravenous, Continuous, Starting on Sat02/16/19 at 0945, Pre-Op, Switch to Normal Saline for patients on Dialysis 0920 (New Bag - Provider: Charito Garber RN)1259 (Rate/Dose Verify - Provider: Ileana Martinez CRNA)1519 (New Bag - Provider: Ileana Martinez CRNA)1618 (Anesthesia Volume Adjustment - Provider: Ileana Martinez CRNA)1644 (Stopped - Provider: Samantha Coto RN) Lactated Ringer's (LR) infusion 125 mL/hr, intravenous, Continuous, Starting on Sat02/16/19 at 1645, Phase I 1716 (New Bag - Provider: Samantha Coto RN) 0349 (Stopped - Provider: Tejal Amin RN) sodium chloride 0.9% infusion 100 mL/hr, intravenous, Continuous, Starting on Sat02/16/19 at 1830, Phase I & Post-op Floor 1817 (New Bag - Provider: Kely Pitt RN) 0738 (Canceled Entry - Provider: Tejal Zuniga RN)0741 (Canceled Entry - Provider: Tejal Zuniga RN)0747 (Canceled Entry - Provider: Tejal Zuniga RN)0751 (New Bag - Provider: Tejal Zuniga RN) PRN Medication Order 02/15/2019 02/16/2019 02/17/2019 bacitracin 50,000 Units in sodium chloride 0.9 % 1,000 mL irrigation solution (CANCELED) As needed, Starting on Sat02/16/19 at 1409, Intra-Op 1409 (Given - Provider: Gabriel Horner MD) hydrALAZINE (APRESOLINE) injection 5 mg (CANCELED) 5 mg, intravenous, Administer over 2 Minutes, Every 5 min PRN, high blood pressure, Starting on Sat02/16/19 at 1604, Phase I, Max cumulative dose 20 mg. Dose if systolic BP greater than 180 AND heart rate less than 70., Indications: hypertension 1726 (Given - Provider: Samantha Coto RN)1731 (Given - Provider: Samantha Coto RN) HYDROmorphone (DILAUDID) injection 0.2 mg (CANCELED) 0.2 mg, intravenous, Administer over 2 Minutes, Every 5 min PRN, 2nd line for pain, Use as 1st line pain med for patients being admitted. Use as second line for pain uncontrolled after Fentanyl after consulting Anesthesiologist, Starting on Sat02/16/19 at 1604, For 10 doses, Phase I, Notify Anesthesiologist if total PACU dose reaches 2 mg and pain score 5/10 or more., Indications: Pain 1636 (Given - Provider: Samantha Coto RN)1700 (Given - Provider: Samantha Coto RN) HYDROmorphone (DILAUDID) injection 0.2 mg (CANCELED) 0.2 mg, intravenous, Administer over 2 Minutes, Every 3 hours PRN, 1st line for pain, Starting on Sat02/16/19 at 1752, Indications: Pain 182 (Given - Provider: Kely Pitt RN) HYDROmorphone (DILAUDID) injection 0.2 mg 0.2 mg, intravenous, Administer over 2 Minutes, Every 3 hours PRN, 2nd line for pain, Starting on Sat02/16/19 at 1940, Indications: Pain metoprolol (LOPRESSOR) injection 1 mg (CANCELED) 1 mg, intravenous, Administer over 1 Minutes, Every 5 min PRN, high blood pressure, Starting on Sat02/16/19 at 1604, For 5 doses, Phase I, Max cumulative dose 5 mg. Dose if systolic blood pressure greater than 180 AND HR greater than 70. Go to Hydralazine if HR lower than 70, or if BP still high after 5 mg Metoprolol, after consulting with Anesthesiologist. 165 (Given - Provider: Samantha Coto RN)172 (Given - Provider: Samantha Coto RN) ondansetron (ZOFRAN) injection 4 mg(Linked Group 1) 4 mg, intravenous, Administer over 2 Minutes, Every 6 hours PRN, nausea, vomiting, if not tolerating PO, Starting on Sat02/16/19 at 1752, Indications: nausea and vomiting ondansetron ODT (ZOFRAN-ODT) disintegrating tablet 4 mg(Linked Group 1) 4 mg, oral, Every 6 hours PRN, nausea, vomiting, Starting on Sat02/16/19 at 1752, Indications: nausea and vomiting oxyCODONE (ROXICODONE) tablet 5 mg 5 mg, oral, Every 4 hours PRN, 1st line for pain, Starting on Sat02/16/19 at 1938, Indications: Pain 2116 (Given - Provider: Tejal Amin RN) 0133 (Given - Provider: Tejal Amin RN)0743 (Given - Provider: Tejal Zuniga RN) prochlorperazine (COMPAZINE) injection 5 mg (CANCELED) 5 mg, intravenous, Once as needed, nausea, vomiting, [facility], Starting on Sat02/16/19 at 1604, For 2 doses, Phase I, If nausea/vomiting not relieved by ondansetron within 30 minutes or if ondansetron has been given within the last 6 hours. 1634 (Given - Provider: Samantha Coto RN) thrombin-recombinant 5,000 unit solution (CANCELED) As needed, Starting on Sat02/16/19 at 1409, Intra-Op 1409 (Given - Provider: Gabriel Horner MD - Comment: soak manjinder) Linked Groups Order Group 1: ondansetron ODT (ZOFRAN-ODT) disintegrating tablet 4 mgJump to med 4 mg, oral, Every 6 hours PRN, nausea, vomiting, Starting on Sat02/16/19 at 1752, Indications: nausea and vomiting Or ondansetron (ZOFRAN) injection 4 mgJump to med 4 mg, intravenous, Administer over 2 Minutes, Every 6 hours PRN, nausea, vomiting, if not tolerating PO, Starting on Sat02/16/19 at 1752, Indications: nausea and vomiting documented in this encounter Orders Medications Ordered That Buck ht Not Have Been Administered Count Last Ordered Date First Ordered Date acetaminophen (TYLENOL) tablet 1,000 mg 1 0 02/16/2019 acetaminophen (TYLENOL) tablet 500 mg 1 08/2018 baclofen (LIORESAL) tablet 10 mg 1 02/17/20 19 ceFAZolin (ANCEF) 1 gram/10 mL in sterile water (premix) 2,000 mg 1 02/16/2019 ceFAZolin (ANCEF) 2,000 mg/2 0 mL in sterile water (premix) 2,000 mg 1 02/16/2019 diphenhydrAMINE (BENADRYL) i njection 12.5 mg 1 02/16/2019 fentaNYL (SUBLIMAZE) preserv ative free injection 25 mcg 1 02/16/2019 gabapentin (NEURONTIN) capsule 100 mg 1 08/2018 hydrALAZINE (APRESOLINE) injection 5 mg 1 0 02/16/2019 HYDROcodone-acetaminophen (N ORCO) 5-325 mg per tablet 1 tablet 1 02/16/2019 HYDROmorphone (DILAUDID) injection 0.2 mg 3 02/16/2019 Lactated Ringer's (LR) infusion 2 9 losartan (COZAAR) tablet 25 mg 1 02/16/2019 losartan (COZAAR) tablet 75 mg 1 02/16/2019 meperidine (DEMEROL) preserv ative free injection 12.5 mg 1 02/16/2019 metoprolol (LOPRESSOR) injection 1 mg 1 08/2018 ondansetron (ZOFRAN) injection 4 mg 2 02/16 ondansetron ODT (ZOFRAN-ODT) disintegrating tablet 4 mg 1 02/16/2019 oxyCODONE (ROXICODONE) tablet 5 mg 1 2018 prochlorperazine (COMPAZINE) injection 5 mg 1 02/16/2019 scopolamine patch 72 hour 1 patch 1 019 senna-docusate (PERICOLACE) 8.6-50 mg per tablet 2 tablet 1 02/16/2019 sodium chloride 0.9% flush 0.5-20 mL 2 08/2018 sodium chloride 0.9% infusion 1 02/16/2019 vancomycin (VANCOCIN) 1,500 mg in sodium chloride 0.9% 250 mL IVPB 1 02/16/2019 vancomycin 1500 mg/250 mL in sodium chloride 0.9% (premix) 1,500 mg 1 02/16/2019 Diet Count Last Ordered Date First Orde red Date ADULT DISCHARGE DIET 1 02/17/2019 Nursing Count Last Ordered Date First Orde red Date DISCHARGE ACTIVITY 7 02/17/2019 DISCHARGE CALL PROVIDER 2 02/17/2019 DISCHARGE DRESSING 4 02/17/2019 DISCHARGE INSTRUCTIONS 2 02/17/2019 Admission Count Last Ordered Date First Orde red Date ASSIGN PATIENT STATUS 3 02/16/2019 CORE MEASURES Count Last Ordered Date First Ord ered Date REASON FOR NO VTE PROPHYLAXIS AT ADMISSION 1 02/16/2019 documented in this encounter Care Teams Film Splicer Relationship Specialty Start Date End Date Jayla Phoenix MD [address] [place] [address] PCP - General 08/07/17 documented as of this encounter
--- OUTSIDE RECORDS SUMMARY | 2024-08-23 08:09 | XMS_ITS | Encounter Summary ---
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 Gender Identity Male 02/04/2019 10:52 AM CDT Sexual Orientation Straight 02/04/2019 10 :52 AM CDT documented as of this encounter Last Filed Vital Signs Vital Sign Reading Time Taken Comments Blood Pressure 120/78 02/17/2019 6:30 AM CDT Pulse 79 02/17/2019 6:30 AM CDT Temperature 36.7 ??C (98.1 ??F) 02/17/2019 6:30 AM CD T Respiratory Rate 14 02/17/2019 6:30 AM CDT Oxygen Saturation 96% 02/17/2019 6:30 AM CDT Inhaled Oxygen Concentration - - Weight 93.4 kg (206 lb) 02/16/2019 8:50 AM CDT Height 188 cm (6' 2 ) 02/16/2019 8:50 AM CDT Body Mass Index 26.45 02/16/2019 8:50 AM CDT documented in this encounter Discharge Diagnoses Diagnosis Disorder of intervertebral disc at C6-C7 level with radiculopathy - CERVICAL DISC DISORDER AT C6-C7 LEVEL WITH RADICULOPATHY Arthrodesis status - ARTHRODESIS STATUS Gastro-esophageal reflux disease without esophagitis - GASTRO-ESOPHAGEAL REFLUX DISEASE WITHOUT ESOPHAGITIS Essential (primary) hypertension - ESSENTIAL (PRIMARY) HYPERTENSION Unspecified essential hypertension Radiographic dye allergy status - RADIOGRAPHIC DYE ALLERGY STATUS Personal history of nicotine dependence - PERSONAL HISTORY OF NICOTINE DEPENDENCE Other metal sander (current) drug therapy - OTHER PENITENTIARY (CURRENT) DRUG THERAPY documented in this encounter Discharge Summaries * Aneta Becerra NP - 02/17/2019 8:53 AM CDT Inpatient Discharge Summary Inpatient Spine Cervical Discharge Summary Admitting Provider: Gabriel Horner MD Discharge Provider: Gabriel Horner MD Primary Care Physician at Discharge: Jayla Phoenix MD [phone] Admission Date: 02/16/2019 Discharge Date: 02/17/2019 Primary [...] year old male cared for by Dr. Gabriel Horner. The risks, benefits, alternatives and complications [...] on 02/17/19. Kristian Vasques Home Medication Instructions OFELIA:[id number] Printed on:02/17/19 0854 Medication Information acetaminophen 500 mg capsule Take [...] above your head. Do not do any hotel maintenance engineer like laundry or vacuuming that may [...] orquestions, please call your doctor???s office nurse [phone]. After hours, weekends, or holidays call the orthopedic exchange at [phone]. 7. MEDICATIONS: Adjustments may have been made [...] your surgeon, your surgeons nurse, or an TIME LOCK EXPERT approximately six weeks after your surgery. Please call [phone] if you need to change an appointment. [...] 25 mg tabletIndication s:hypertension 75 mg nightly 12/18/2 01 9 senna-docusate (PERICOLACE) 8.6-50 mgIndications:co nstipation [...] rashes or lesions Anterior Cervical dressing CDI, [id number] Neurologic: Sensory: light touch intact C5-T1 bilaterally [...] via telephone. Prior note: 48 y.o. male [id number] with history of ACDF C5-6 and September [...] his surgery. He has tried oral steroids, [place], tizanidine. He continues to have significant right [...] Pain control, IS, ankle pumps Summary: * Michelle of [place] - Kely Pitt RN - [...] PM CDT SURGEON Harvey Horner MD FIRST REAL ESTATE OPERATIONS MANAGER Jae Blackman MD ANESTHESIA General endotracheal PREOPERATIVE DIAGNOSES [...] was used to remove any anterior osteophytes. Lovell distraction posts were placed. The disk space was placed under distraction. A complete discectomy was accomplished using a combination of curettes and pituitary rongeurs. Once the disk had been removed down to the level of post erior longitudinal ligament, we then used the intradiscal paddle distractors to restore the disk height to normal and this height was maintained with the Lovell post distractors. A high-speed drill was used [...] allograft was then inserted and countersunk. The Lovell posts were then removed and the post [...] Resident - Assisting Anesthesiologist: Feliz Jaeger MD PARKS RECREATION DIRECTOR: Ileana Martinez CRNA Services Executive: Laura Loya RN Services Executive Relief: Viviane Martinez RN Scrub Relief: ST [...] Implant Name Type Inv. Item Serial No. Manufacturing Inspector Lot No. LRB No. Used MUSCULOSKELETAL TRANSPLANT [id number] FROZEN SPINE 7D LORDOTIC TRAPEZOID SPACER ALLOGRAFT -[id number] - [id number] MUSCULOSKELETAL TRANSPLANT [id number] Frozen Spine 7d LordoticTrapezoid Spacer Allograft [id number] Musculoskeletal Transplant N/A 1 [employer] [id number] MAXAN 10MM LEVEL 1 SPINE CERVICAL ANTERIOR PLATE BONE TITANIUM - [id number] [employer] [id number] Maxan 10mm Level 1 Spine Cervical Anterior Plate Bone Titanium [employer] N/A 1 [employer] [id number] 4MM 16MM FIX SCREW BONE - [id number] [employer] [id number] 4MM 16MM FIX SCREW BONE [employer] [...] C5-C6. Electronically signed by: Dom Llamas M.D. us Gabriel Horner MD IMG XR PROCEDURES Final Re sult * FL Fluoroscopy < 1 Hour (02/16/2019 8:53 PM CDT) Narrative [facility] - 02/17/2019 9:27 AM CDT The images from this study are not interpreted by Radiology. ??Please refer to the physician's procedure / OR operative note. us Gabriel Horner MD IMG FLUOROSCOPY PROCEDURES Final Result [facility] * eGFR (02/16/2019 4:20 PM CDT) eGFR >60 mL/min/1.7 3 m2 [facility] Comment: Interpretive Data Reference Interval Normal ?>/= 90 mL/min/1.73m2 Mildly decreased* ? 60 - 89 mL/min/1.73m2 Mildly to moderately decreased ?45 - 59 mL/min/1.73m2 Moderately to severely decreased ??30 - 44 mL/min/1.73m2 Severely decreased ?15 - 29 mL/min/1.73m2 Kidney Failure ?< 15 ??mL/min/1.73m2 *Relative to young adult level If -Yemeni multiply value by 1.16. Estimated glomerular filtration [...] 4:20 PM CDT 02/16/2019 4:33 PM CDT Gabrielchelsea Horner MD LAB BLOOD ORDERABLES Final Result [facility] [id number] [facility]. [place] [address] * Basic metabolic panel (02/16/2019 4:20 PM CDT) Sodium 140 135 - 145 mmol/L [facility] Potassium, pl 4.5 3.3 - 4.9 mmol/L [facility] Chloride 104 97 - 110 mmol/L [facility] CO2 23 22 - 32 mmol/L [facility] Anion gap 13 2 - 15 mmol/L [facility] BUN 12 8 - 25 mg/dL [facility] Creatinine 1.20 0.80 - 1.30 mg/dL [facility] Glucose 99 70 - 199 mg/dL [facility] Comment: Interpretive Data Fasting glucose >/= 126 [...] 2017. Calcium 8.7 8.5 - 10.3 mg/dL [facility] Blood specimen (specimen) 02/16/2019 4:20 PM CDT 02/16/2019 4:33 PM CDT Gabriel Horner MD LAB BLOOD ORDERABLES Final Result [facility] [id number] [facility]. [place] [address] * (ABNORMAL) CBC without differential (02/16/2019 4:20 PM CDT) WBC 10.0(H) 3.8 - 9.9 K/cumm [facility] Hgb 12.4(L) 13.0 - 17.5 g/dL [facility] Hct 37.9(L) 38.9 - 50.3 % [facility] Plt 240 150 - 400 K/cumm [facility] MPV 9.3 9.1 - 12.3 fL [facility] RBC 4.20(L) 4.30 - 5.80 M/cumm [facility] MCV 90.2 81.3 - 96.4 fL [facility] MCH 29.5 27.1 - 33.3 pg [facility] MCHC 32.7 32.3 - 35.7 g/dL [facility] RDW CV 12.9 11.1 - 14.9 % [facility] RDW SD 42.5 35.7 - 48.1 fL [facility] NRBC abs 0.00 0.00 - 0.01 K/cumm [facility] Blood specimen (specimen) 02/16/2019 4:20 PM CDT 02/16/2019 4:33 PM CDT Gabriel Horner MD LAB BLOOD ORDERABLES Final Result [facility] [id number] [facility] Department [place] [address] documented in this encounter Visit Diagnoses Diagnosis [...] hours, First dose on Sat02/16/19 at 2100 Given 02/17/2019 5:17 AM CDT 1,000 mg Given 02/16/2019 9:17 PM CDT 1,000 mg baclofen (LIORESAL) tablet 10 mg 10 mg, oral, Every 8 hours scheduled, First dose on Sat02/16/19 at 2200, Indications: Muscle spasmIndications:Muscle spasm Given 02/17/2019 5:17 AM CDT 10 mg Given 02/16/2019 9:17 PM CDT 10 mg ceFAZolin (ANCEF) 2,000 mg/20 mL in sterile water (premix) 2,000 mg 2,000 mg, intravenous, at 400 mL/hr, Administer over 3 Minutes, Every 8 hours, First dose on Sat02/16/19 at 2100, For 2 doses, Beginning 8 hours after last maile-procedural dose., Indications: Prophylaxis, SurgicalIndications:Prophylaxis, Surgical New Bag 02/17/2019 5:17 AM CDT 2,000 mg 400 mL/hr New Bag 02/16/2019 9:21 PM CDT 2,000 mg 400 mL/hr gabapentin (NEURONTIN) capsule 100 mg 100 mg, oral, 3 times daily, First dose on Sat02/16/19 at 2100, Indications: Neuropathic PainIndications:Neuropathic Pain Given 02/17/2019 7:44 AM CDT 100 mg Given 02/16/2019 9:17 PM CDT 100 mg hydrALAZINE (APRESOLINE) injection 5 mg 5 mg, intravenous, Administer over 2 Minutes, Every 5 min PRN, high blood pressure, Starting on Sat02/16/19 at 1604, Phase I, Max cumulative dose 20 mg. Dose if systolic BP greater than 180 AND heart rate less than 70., Indications: hypertensionIndications:hypertension Given 02/16/2019 5:31 PM CDT 5 mg Given 02/16/2019 5:26 PM CDT 5 mg HYDROmorphone (DILAUDID) injection 0.2 mg 0.2 [...] score 5/10 or more., Indications: PainIndications:Pain Given 02/16/2019 5:00 PM CDT 0.2 mg Given 02/16/2019 4:36 PM CDT 0.2 mg HYDROmorphone (DILAUDID) injection 0.2 mg 0.2 mg, intravenous, Administer over 2 Minutes, Every 3 hours PRN, 1st line for pain, Starting on Sat02/16/19 at 1752, Indications: PainIndications:Pain Given 02/16/2019 6:26 PM CDT 0.2 mg HYDROmorphone (DILAUDID) injection 0.2 mg 0.2 mg, intravenous, Administer over 2 Minutes, Every 3 hours PRN, 2nd line for pain, Starting on Sat02/16/19 at 1940, Indications: PainIndications:Pain Lactated Ringer's (LR) infusion 30 mL/hr, intravenous, Continuous, Starting on Sat02/16/19 at 0945, Pre-Op, Switch to Normal Saline for patients on Dialysis New Bag 02/16/2019 3:19 PM CDT Rate/Dose Verify 02/16/2019 12:59 PM CDT New Bag 02/16/2019 9:20 AM CDT 30 mL/hr 30 mL/hr Lactated Ringer's (LR) infusion 125 mL/hr, intravenous, Continuous, Starting on Sat02/16/19 at 1645, Phase I New Bag 02/16/2019 5:16 PM CDT 125 mL/hr 125 mL/ hr losartan (COZAAR) tablet 75 mg 75 mg, oral, Daily, First dose on Sat02/16/19 at 1915 Given 02/17/2019 7:42 AM CDT 75 mg Given 02/16/2019 7:45 PM CDT 75 mg metoprolol (LOPRESSOR) injection 1 mg 1 mg, intravenous, Administer [...] 5 mg Metoprolol, after consulting with Anesthesiologist. Given 02/16/2019 5:21 PM CDT 1 mg Given 02/16/2019 4:52 PM CDT 1 mg ondansetron (ZOFRAN) injection 4 mg 4 [...] Given 02/16/2019 9:17 PM CDT 5 mg prochlorperazine (COMPAZINE) injection 5 mg 5 mg, intravenous, Once as needed, nausea, vomiting, [facility], Starting on Sat02/16/19 at 1604, For 2 doses, Phase I, If nausea/vomiting not relieved by ondansetron within 30 minutes or if ondansetron has been given within the last 6 hours. Given 02/16/2019 4:34 PM CDT 5 mg senna-docusate (PERICOLACE) 8.6-50 [...] 6:17 PM CDT 100 mL/hr 100 mL/hr vancomycin (VANCOCIN) 1,500 mg in sodium chloride 0.9% 250 mL IVPB 1,500 mg, intravenous, at 176.7 mL/hr, Administer over 90 Minutes, Once, On Sat02/17/19 at 0000, For 1 dose, Administer 12 hours after last pre-operative dose., Indications: Prophylaxis, SurgicalIndications:Prophylaxis , Surgical New Bag 02/17/2019 2:03 AM CDT 1,500 mg 176.7 mL/hr vancomycin 1500 mg/250 mL in sodium chloride 0.9% (premix) 1,500 mg 1,500 mg, intravenous, Administer over 90 Minutes, Once, On Sat02/16/19 at 1100, For 1 dose, Pre-Op, Indications: Prophylaxis, SurgicalIndications:Prophylaxis , Surgical New Bag 02/16/2019 11:47 AM CDT 1,500 mg documented in this encounter Discontinued Medications Medication [...] hours, First dose on Sat02/16/19 at 2100 2117 (Given - Provider: Tejal Amin RN) 0517 (Given - Provider: Tejal Amin RN) baclofen (LIORESAL) tablet 10 mg 10 mg, oral, Every 8 hours scheduled, First dose on Sat02/16/19 at 2200, Indications: Muscle spasm 7 (Given - Provider: Tejal Amin RN) 0517 (Given - Provider: Tejal Amin RN) ceFAZolin (ANCEF) 1 gram/10 mL in sterile water (premix) 2,000 mg (COMPLETED) 2,000 mg, intravenous, at 400 mL/hr, Administer over 3 Minutes, Once, On Sat02/16/19 at 0945, For 1 dose, Pre-Op, Administer within 60 minutes of incision., Indications: Prophylaxis, Surgical 1259 (Given - Provider: Ileana Martinez CRNA) ceFAZolin [...] after last pre-operative dose., Indications: Prophylaxis, Surgical 020 (New Bag - Provider: Tejal Amin RN - Comment: Liquor Tester mixed up medicaion. Barcode would not scan.)0345 (Stopped - Provider: Tejal Amin RN) vancomycin 1500 mg/250 mL in sodium chloride 0.9% (premix) 1,500 mg (COMPLETED) 1,500 mg, intravenous, Administer over 90 Minutes, Once, On Sat02/16/19 at 1100, For 1 dose, Pre-Op, Indications: Prophylaxis, Surgical 1147 (New Bag - Provider: Raulito Helton, RN)1256 (Stopped - Provider: Raulito Helton RN) [...] Starting on Sat02/16/19 at 1752, Indications: Pain 1826 (Given - Provider: eKly Pitt RN) HYDROmorphone (DILAUDID) injection 0.2 mg [...] 5 mg Metoprolol, after consulting with Anesthesiologist. 1652 (Given - Provider: Samantha Coto RN)1721 (Given - Provider: Samantha Coto RN) ondansetron [...] Starting on Sat02/16/19 at 1938, Indications: Pain 2117 (Given - Provider: Tejal Amin, RN) 0133 (Given - Provider: Tejal Amin, AMIE)0743 (Given - Provider: Tejal Zuniga RN) prochlorperazine [...] - Provider: Gabriel Horner MD - Comment: risa dunbar) Linked Groups Order Group 1: ondansetron ODT [...] Date First Ordered Date acetaminophen (TYLENOL) tablet 500 mg 1 08/2018 bacitracin 50,000 Units in s odium chloride 0.9 % 1,000 mL irrigation solution 1 02/16/2019 ceFAZolin (ANCEF) 1 gram/10 mL in sterile water (premix) 2,000 mg 1 02/16/2019 diphenhydrAMINE (BENADRYL) i njection 12.5 mg 1 02/16/2019 fentaNYL (SUBLIMAZE) preserv ative free injection 25 mcg 1 02/16/2019 HYDROcodone-acetaminophen (N ORCO) 5-325 mg per tablet 1 tablet 1 02/16/2019 HYDROmorphone (DILAUDID) injection 0.2 mg 1 02/16/2019 losartan (COZAAR) tablet 25 mg 1 02/16/2019 meperidine (DEMEROL) preserv ative free injection 12.5 mg 1 02/16/2019 ondansetron (ZOFRAN) injection 4 mg 2 02/16 ondansetron ODT (ZOFRAN-ODT) disintegrating tablet 4 mg 1 02/16/2019 scopolamine patch 72 hour 1 patch 1 019 sodium chloride 0.9% flush 0.5-20 mL 2 08/2018 thrombin-recombinant 5,000 unit solution 1 02/16/2019 Diet Count Last Ordered Date [...] 02/16/2019 documented in this encounter Care Teams Nut Processing Supervisor Relationship Specialty Start Date End Date Jayla Phoenix MD [address] [place] [address] PCP - General 08/07/17 documented as of this encounter
--- OUTSIDE RECORDS SUMMARY | 2024-08-23 08:09 | XMS_ITS | Encounter Summary ---
Author Organization [facility] Address [address] [place] [address] Phone Care Team Providers Care Soil Conservation Aide Name Role Phone Jayla Phoenix MD Primary Care Provider [phone] Reason for Visit * Reason Comments New Patient Encounter Details Date Type Department Care Team (Late st Contact Info) Description 02/12/2019 8:15 AM CDT Office Visit [facility] ([facility]) - [facility] ENT [address] [facility] Advanced Medicine 11th [place] [address] [place] [address] Inocencio Chang MD [address] [place] [address] Fusion of spine of cervical region (Primary Dx) Social History Tobacco Use Types Packs/Day Years Used Date Smoking Tobacco: Former Cigarettes 1.5 9 1 994 - 2003 Smokeless Tobacco: Never Alcohol Use Standard Drinks/Week Comments Not Currently 0 (1 standard drink = 0.6 oz pur e alcohol) Sex and Gender Information Value Date Recorded Sex Assigned at Not on file 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 Gender Identity Male 02/04/2019 10:52 AM CDT Sexual Orientation Straight 02/04/2019 10 :52 AM CDT documented as of this encounter Last Filed Vital Signs Vital Sign Reading Time Taken Comments Blood Pressure 145/103 02/12/2019 7:59 AM CDT Pulse 84 02/12/2019 7:59 AM CDT Temperature - - Respiratory Rate - - Oxygen Saturation - - Inhaled Oxygen Concentration - - Weight 95.2 kg (209 lb 12.8 oz) 02/12/2019 7:59 AM CDT Height 188 cm (6' 2 ) 02/12/2019 7:59 AM CDT Body Mass Index 26.94 02/12/2019 7:59 AM CDT documented in this encounter Progress Notes * Inocencio Chang MD - 02/12/2019 8:15 AM CDT [facility] Department of Otolaryngology - Head & Neck Surgery Consultation Report 02/12/2019 Inocencio Chang MD RN: Naomi Lee Consultation Requested By: Gabriel Horner MD Primary Care Provider: Jayla Phoenix MD Patient Name: Kristian Vasques Date of : 1970 Chief Complaint Patient presents with ??? New Patient HISTORY OF PRESENT ILLNESS: Dear Dr. Horner Thank you for asking me to evaluate Mr. Vasques in the [facility] Otolaryngology - Head and Neck Surgery Clinic. The patient is accompanied today by himself. As you know he had an anterior cervical diskectomy and fusion last year approximately 1 and half years ago. He did very well from that surgery but he has developed a new area of herniation with triceps weakness. He comes in today for a vocal cord evaluation as a planning procedure for his revision spinal surgery. He has no head and neck complaints. He had no dysphagia or voice changes. Past Medical History: Diagnosis Date ??? Gastric reflux Past Surgical History: Procedure Laterality Date ??? SPINAL FUSION Allergies Allergen Reactions ??? Iodinated Contrast- Oral And Iv Dye Rash Current Outpatient Medications: ??? cholestyramine-aspartame 4 gram powder, , Disp: , Rfl: ??? gabapentin (NEURONTIN) 300 mg capsule, Take 1 capsule by mouth daily for 3 days, then increase to 1 capsule twice daily for 3 days, then 1 capsule three times a day thereafter. Do not stop medication abruptly, Disp: 90 capsule, Rfl: 0 ??? HYDROcodone-acetaminophen (NORCO) 10-325 mg per tablet, Take 1 tablet by mouth every 6 (six) hours as needed for pain, Disp: , Rfl: ??? losartan (COZAAR) 25 mg tablet, , Disp: , Rfl: ??? mupirocin (BACTROBAN) 2 % ointment, Place small amount of ointment in each nostril with a q-tiptwice daily for 5 days prior to surgery, Disp: 22 g, Rfl: 0 ??? tiZANidine (ZANAFLEX) 4 mg tablet, TK 1 T PO Q 6 H PRN P, Disp: , Rfl: 0 ??? tiZANidine (ZANAFLEX) 4 mg tablet, Take 1 tablet (4 mg total) by mouth every 8 (eight) hours asneeded for muscle spasms, Disp: 90 tablet, Rfl: 0 Social History Socioeconomic History ??? Marital status: Spouse name: Not on file ??? Number of children: Not on file ??? Years of education: Not on file ??? Highest education level: Not on file Occupational History ??? Not on file Social Needs ??? Financial resource strain: Not on file ??? Food insecurity: Worry: Not on file Inability: Not on file ??? Transportation needs: Medical: Not on file Non-medical: Not on file Tobacco Use ??? Smoking status: Never Smoker ??? Smokeless tobacco: Never Used Substance and Sexual Activity ??? Alcohol use: Yes ??? Drug use: No ??? Sexual activity: Not on file Lifestyle ??? Physical activity: Days per week: Not on file Minutes per session: Not on file ??? Stress: Not on file Relationships ??? Social connections: Talks on phone: Not on file Gets together: Not on file Attends zoroastrianism service: Not on file Active member of club or organization: Not on file Attends meetings of clubs or organizations: Not on file Relationship status: Not on file ??? Intimate partner violence: Fear of current or ex partner: Not on file Emotionally abused: Not on file Physically abused: Not on file Forced sexual activity: Not on file Other Topics Concern ??? Not on file Social History Narrative ??? Not on file No family history on file. REVIEW OF SYSTEMS A complete review of systems was completed by the patient on the Patient History Form and reviewed with the patient during the visit. The patient intake form, including the past medical history, past surgical history, social history,family history, medications, allergies and review of systems was reviewed in its entirety and was signed and dated by myself. The Patient History Form can be found in the electronic medical record asa scanned document. PHYSICAL EXAM: Constitutional: Vitals BP (!) 145/103 (BP Location: Left arm, Patient Position: Sitting) Pulse 84 Ht 188 cm (6' 2 ) Wt 95.2 kg (209 lb 12.8 oz) BMI 26.94 kg/m?? General: Well-developed, well-nourished in no apparent distress. Appropriate affect. Head and Face: Normocephalic, atraumatic. Skin: No cutaneous lesions of the face or neck. Neurologic: Cranial nerves II through XII are grossly intact. Eyes: Pupils are equal, round, and reactive to light and accommodation. Extraocular muscles are intact. No scleral icterus or injection. Ears: Auricles are unremarkable bilaterally. Hearing intact. Nose: Dorsum is midline. No masses or polyps visualized on anterior rhinoscopy. No drainage or discharge. Oral Cavity/Oropharynx: No visible mucosal lesions. Speech normal. Neck: No evidence of lymphadenopathy, masses or tenderness. The salivary gland examination is normal bilaterally. Well-healed surgical scar. Cardiovascular: Extremities are warm and well perfused. Pulmonary: Normal quiet breathing. No respiratory distress, stridor, or wheeze. PROCEDURE PERFORMED: Flexible nasal laryngoscopy Scope Number F [id number] Secondary to cervical spine surgery, flexible nasal laryngoscopy was indicated. Therefore the patient was topically decongested and anesthetized with Afrin and lidocaine spray mixture. The scope was passed along the inferior border of the nasal cavity. There were no nasal masses or lesions. The nasopharynx is unremarkable. There are no masses or lesions in the nasopharynx. The palate elevated normally. The oropharynx was then visualized. The tongue base was unremarkable. The vallecula was clear. The epiglottis was normal. The posterior oropharyngeal wall was unremarkable. The aryepiglottic folds, pyriform sinuses, false vocal cords, and true vocal cords were all unremarkable. The true vocal cords were symmetrically mobile with complete abduction and adduction. The proximal subglottis and trachea that could be visualized were unremarkable. The scope was withdrawn. The patient tolerated this well. There were no complications. DATA REVIEWED: Old Records/Discussion with MD: 02/04/[address] Horner review describing his planning of arevision spinal surgery and request for a vocal cord evaluation. IMPRESSION: Cervical spine disease PLAN: I discussed with him that his vocal cord evaluation is normal therefore an approach from either side would be appropriate. I will only see him back should he have any issues with voice or swallowing after his procedure which is unlikely. Thank you for allowing me to participate in the care of Mr. Vasques. Should you have any questions or concerns, please do not hesitate to contact my office. Warm regards, Inocencio Chang M.D. Assistant Chief Of Police Head & Neck Surgical Oncology and Microvascular Reconstruction Department of Otolaryngology - Head & Neck Surgery [facility] documented in this encounter Plan of Treatment Not on file documented as of this encounter Visit Diagnoses Diagnosis Fusion of spine of cervical region- Primary documented in this encounter Discontinued Medications Medication Sig Discontinue Reason Start Date End Da te mupirocin (BACTROBAN) 2 % ointment Use a q-tip and apply inside both nostrils twice daily. Begin 5 days before surgery. Patient Discharge 09/27/2017 02/12/2019 ketorolac (TORADOL) 10 mg tablet TK ONE T PO Q 6 H PRN P Patient Discharge 01/18/2019 02/12/2019 dexAMETHasone (DECADRON) 2 mg tablet Take 2 mg by mouth 2 (two) times a day with meals Patient Discharge 02/12/2019 documented as of this encounter Historical Medications * This list may reflect changes made after this encounter. cholestyramine-as partame 4 gram powderIndications :for bowel resection every morning 09/18/2010 01/21/2020 added in this encounter Care Teams Soil Conservation Aide Relationship Specialty Start Date End Date Jayla Phoenix MD [address] [place] [address] PCP - General 08/07/17 documented as of this encounter
--- OUTSIDE RECORDS SUMMARY | 2024-08-23 08:09 | XMS_ITS | Encounter Summary ---
Author Organization [facility] Address [address] [place] [address] Phone Care Team Providers Care Nursing Home Social Worker Name Role Phone Jayla Phoenix MD Primary Care Provider [phone] Encounter Details Date Type Department Care Team (Late st Contact Info) Description 01/21/2020 Orders Only [facility] Gastroenterology [address] [facility] Advanced Medicine 8th [place] [address] [place] [phone] Corbin Duque MD [address] [place] [address] Crohn's disease of both small [...] on file 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 Gender Identity Male 02/04/2019 10:52 AM CDT Sexual Orientation Straight 02/04/2019 10 :52 AM CDT documented as of this encounter Plan of Treatment Scheduled Orders Name Type Priority Associated Diagnoses Orde r Schedule CBC with auto differential Lab Routine Crohn's disease of both small and large intestine with complication (CMS/HCC) Expected: 01/21/2020 (Approximate), Expires: 01/20/2021 Comprehensive metabolic panel Lab Routine Crohn's disease of both small and large intestine with complication (CMS/HCC) Expected: 01/21/2020 (Approximate), Expires: 01/20/2021 CRP (acute phase) Lab Routine Crohn's disease of both small and large intestine with complication (CMS/HCC) Expected: 01/21/2020 (Approximate), Expires: 01/20/2021 Calprotectin, fecal Lab Routine Crohn's disease of both small and large intestine with complication (CMS/HCC) Expected: 01/21/2020 (Approximate), Expires: 01/20/2021 documented as of this encounter Visit Diagnoses Diagnosis Crohn's disease of both small and large intestine with complication (HCC)- Primary documented in this encounter Care Teams Nursing Home Social Worker Relationship Specialty Start Date End Date Jayla Phoenix MD [address] [place], [place] [id number] PCP - General 08/07/17 documented as of this encounter
--- OUTSIDE RECORDS SUMMARY | 2024-08-23 08:09 | XMS_ITS | Encounter Summary ---
Author Organization [facility] Address [address] [place] [address] Phone Care Team Providers Care Design Specialist Name Role Phone Jayla Phoenix MD Primary Care Provider [phone] Reason for Referral * Diagnostic Imaging (Routine) - Closed Specialty Diagnoses / Procedures Referred By Contac t Referred To Contact Radiology Diagnoses Fusion of spine of cervical region Cervical disc herniation Procedures CT Cervical Spine WO Contrast Gabriel Horner MD Phone: tel: fax: [address] [address] Referral ID Status Reason Start Date Expiration Date Visits Re quested Visits Authorized [id number] Closed 02/02/2019 08/13/2020 1 1 Encounter Details Date Type Department Care Team (Late st Contact Info) Description 02/02/2019 Orders Only [facility] Orthopaedic Surgery [address] [facility] Advanced Medicine 6th [place] [address] [place] [id number] Gabriel Horner MD [address] [facility] [address] [place] [address] Fusion of spine of cervical region (Primary Dx); Cervical disc herniation Social History Tobacco Use Types Packs/Day Years Used Date Smoking Tobacco: Never Smokeless Tobacco: Never Alcohol Use Standard Drinks/Week Comments Yes 0 (1 standard drink = 0.6 oz pur e alcohol) Sex and Gender Information Value Date Recorded Sex Assigned at Not on file 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 Gender Identity Male 02/04/2019 10:52 AM CDT Sexual Orientation Straight 02/04/2019 10 :52 AM CDT documented as of this encounter Plan of Treatment Not on file documented as of this encounter Results * CT Cervical Spine [...] Electronically signed by: Warren Springer M.D, PHD Gabriel Chuck Horner MD IM CT PROCEDURES Final Re sult documented in this encounter Visit Diagnoses Diagnosis Fusion of spine of cervical region- Primary Cervical disc herniation Displacement of cervical intervertebral disc without myelopathy Fusion of spine of cervical region Cervical disc herniation Displacement of cervical intervertebral disc without myelopathy documented in this encounter Care Teams Design Specialist Relationship Specialty Start Date End Date Jayla Phoenix MD [address] [place] [address] PCP - General 08/07/17 documented as of this encounter
--- OUTSIDE RECORDS SUMMARY | 2024-08-23 08:09 | XMS_ITS | Encounter Summary ---
Author Organization [facility] Address [address] [place] [address] Phone Care Team Providers Care Fire Chief Deputy Name Role Phone Jayla Phoenix MD Primary Care Provider [phone] Reason for Visit * Reason Comments Return Patient Encounter Details Date Type Department Care Team (Late st Contact Info) Description 02/04/2019 2:30 PM CDT Office Visit [facility] Orthopaedic Surgery [address] [facility] Advanced Medicine [address]th [place] [address] [place] [address] Gabriel Horner MD [address] [facility] [address] [place], [place] [id number] Cervical radiculopathy at C7 (Primary Dx) Social History Tobacco Use Types Packs/Day Years Used Date Smoking Tobacco: Never Smokeless Tobacco: Never Alcohol Use Standard Drinks/Week Comments Yes 0 (1 standard drink = 0.6 oz pur e alcohol) Sex and Gender Information Value Date Recorded Sex Assigned at Not on file 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 Gender Identity Male 02/04/2019 10:52 AM CDT Sexual Orientation Straight 02/04/2019 10 :52 AM CDT documented as of this encounter Last Filed Vital Signs Vital Sign Reading Time Taken Comments Blood Pressure - - Pulse - - Temperature - - Respiratory Rate - - Oxygen Saturation - - Inhaled Oxygen Concentration - - Weight 90.7 kg (200 lb) 02/04/2019 1:36 PM CDT Height 188 cm (6' 2 ) 02/04/2019 1:36 PM CDT Body Mass Index 25.68 02/04/2019 1:36 PM CDT documented in this encounter Ordered Prescriptions Prescription Sig Dispense Quantity Refills Last Filled Start Date End Date mupirocin (BACTROBAN) 2 % ointmentIndications :Cervical radiculopathy at C7 Place small amount of ointment in each nostril with a q-tip twice daily for 5 days prior to surgery 22 g 02/04/2019 9 documented in this encounter Progress Notes * Dinah Ribeiro, RN - 02/04/2019 2:30 PM CDT I saw Kristian and his today regarding preoperative teaching for surgery consisting of a removal of C56 anterior plate and adjacent C67 acdf/i. The preop diagnosis is cervical dis herniation with radiculopathy. I discussed with the patient, preoperative preparations including testing and consultations needed prior to surgery. I discussed with the patient, the hospital course, the pain management protocol, possible rehabilitation after surgery, and return to work estimates. I discussed with the patient, their diagnosis, surgical procedure, and risks of complications at length. The patient completed the preoperative questionnaires and we reviewed the wake up test together. A surgery teaching booklet was given. Surgery is scheduled for Saturday, February 16, 2019. Surgery arrival time is 10:45am at 1:00pm. CPAP appointment is scheduled for February 12, 2019. He already has a soft and rigid collar. He is scheduled to see Dr. Chang, ENT, for a vocal cord evaluation on February 12, 2019 at 8:15am. He was prescribed the 5 day pre surgery mupirocin ointment with instructions for use. The surgical procedure consent and the blood transfusion consent were reviewed with the patient. The patient gave informed consent to the above mentioned procedure and all consents were signed. Patient was given surgery instructions including stopping all NSAID's, blood thinners, and aspirin products 1 week before surgery. Patient was instructed not to eat or drink anything after midnight. Patient was told to call the office if they have any additional questions prior to their surgery date. Patient verbalized understanding of these instructions. All information was given to patient regarding his/her diagnosis, preoperative instructions, discharge instructions, and postoperative surgical restrictions. Patient verbalized understanding of all instructions. All questions were answered. Patient agreed to proceed with the planned surgery. Dinah Ribeiro RN * Gabriel Horner MD - 02/04/2019 2:30 PM CDT ORTHOPAEDIC SURGERY SPINE SERVICE NEW PATIENT Patient: Kristian Vasques : 1970 Date of Service: 02/04/2019 DATE OF VISIT: 02/04/2019 CHIEF COMPLAINT: Right arm pain HISTORY OF PRESENT ILLNESS: Kristian Vasques is a 48 y.o. male [id number] with history of ACDF C5-6 and September of 2017 comes in with a new onset right arm pain over the last 1 month. He was doing some house remodeling but does not remember an acute injury. He has pain on the right side of his neck, along the scapula, posterior shoulder, posterior arm in the triceps, and into the thumb, index, and long fingers. Hefeels like his arm is weak. He has trouble shaving. Denies any issues with writing, doing buttons, other other fine motor tasks. He denies any gait instability. He is doing well prior to about a month ago after his surgery. He has tried oral steroids, Mccarley, tizanidine. He continues to have significant right arm pain and has trouble sleeping at night. He denies any changes in bowel or bladder function. Denies any fever or chills. HEIGHT/WEIGHT/BMI: Ht Readings from Last 1 Encounters: 02/04/19 188 cm (6' 2 ) Wt Readings from Last 1 Encounters: 02/04/19 90.7 kg (200 lb) Body mass index is 25.68 kg/m??. REVIEW OF SYSTEMS: A thorough review of systems was performed per the patients general health questionnaire. All systems are negative except for history of present illness per patient questionnaire. PAST MEDICAL HISTORY: Past Medical History: Diagnosis Date ??? Gastric reflux PAST SURGICAL HISTORY: Past Surgical History: Procedure Laterality Date ??? SPINAL FUSION SOCIAL HISTORY: Social History Socioeconomic History ??? Marital status: [...] file Gets together: Not on file Attends mosque service: Not on file Active member of [...] Social History Narrative ??? Not on file FAMILY HISTORY: History reviewed. No pertinent family history. MEDICATIONS: Prior to Admission medications Medication Sig Start Date End Date Taking? Authorizing Provider dexAMETHasone (DECADRON) 2 mg tablet Take 2 mg by mouth 2 (two) times a day with meals Historical Provider, gabapentin (NEURONTIN) 300 mg capsule Take 1 capsule by mouth daily for 3 days, then increase to 1 capsule twice daily for 3 days, then 1 capsule three times a day thereafter. Do not stop medication abruptly 01/23/19 Antonieta Sadler, ARMOR SENIOR SERGEANT HYDROcodone-acetaminophen (NORCO) 10-325 mg per tablet Take 1 tablet by mouth every 6 (six) hours as needed for pain Historical Provider, ketorolac (TORADOL) 10 mg tablet TK ONE T PO Q 6 H PRN P 01/18/19 Historical Provider, losartan (COZAAR) 25 mg tablet Historical Provider, mupirocin (BACTROBAN) 2 % ointment Use a q-tip and apply inside both nostrils twice daily. Begin 5 days before surgery. 09/27/17 Historical Provider, mupirocin (BACTROBAN) 2 % ointment Place small amount of ointment in each nostril with a q-tip twice daily for 5 days prior to surgery 02/04/19 Gabriel Horner MD tiZANidine (ZANAFLEX) 4 mg tablet TK 1 T PO Q 6 H PRN P 01/18/19 Historical Provider, tiZANidine (ZANAFLEX) 4 mg tablet Take 1 tablet (4 mg total) by mouth every 8 (eight) hours as needed for muscle spasms 01/23/19 Antonieta Sadler, ARMOR SENIOR SERGEANT cyclobenzaprine (FLEXERIL) 10 mg tablet TAKE 1 TABLET 3 TIMES DAILY NEEDED. 09/27/17 02/04/19 Historical Provider, traMADol (ULTRAM) 50 mg tablet TK ONE T PO Q 6 H PRF PAIN 01/18/19 02/04/19 Historical Provider, ALLERGIES: Allergies Allergen Reactions ??? Iodinated Contrast- Oral And Iv Dye Rash PHYSICAL EXAM: General: NAD, well-developed well-nourished Eyes: sclera nonicteric ENT: NCAT, dentition intact Lungs: Unlabored breathing Cardiac: Regular rate Abdomen: Soft, nontender, nondistended. Psychiatric: Normal mood and affect. Spine: No local tenderness. No skin defects. No visible deformity on inspection. No appreciable muscular atrophy. Nontender, and painless ROM shoulders, elbow, wrist, digits, hips, knees, ankles. Normal muscular tone. Motor: Muscle Strength Left Right Deltoid 5/5 5/5 Biceps 5/5 5/5 Triceps 5/5 4/5 Wrist extension 5/5 5/5 Wrist flexion 5/5 5/5 Cone Classifier Tender 5/5 4/5 Interosseous of hand 5/5 5/5 Iliopsoas 5/5 5/5 Quadriceps 5/5 5/5 Tibialis anterior 5/5 5/5 Extensor hallicus longus 5/5 5/5 Gastrocsoleus complex 5/5 5/5 Sensation Left upper extremity: sensation intact to light touch in C5 to T1 dermatomes. Right upper extremity: sensation intact to light touch in C5 to T1 dermatomes. Left lower extremity: sensation intact to light touch in L2 to S1 dermatomes. Right lower extremity: sensation intact to light touch in L2 to S1 dermatomes. Reflexes: Left Upper Extremity: 2+ biceps (C5), 2+ brachioradialis (C6), 2+ triceps (C7). Right Upper Extremity: 2+ biceps (C5), 2+ brachioradialis (C6), 2+ triceps (C7). Left Lower Extremity: 2+patellar tendon (L4), achilles (S1) Right Lower Extremity: 2+patellar tendon (L4), achilles (S1) Gait: normal Long-tract signs: Positive Rivera's on right. Negative on left No clonus Downgoing Babinski Negative Romberg Vascular: Bilateral Upper Extremity: fingers WWP Bilateral Lower Extremity: toes WWP LABORATORY & IMAGING: I have ordered and personally reviewed patient's imaging: Cervical spine x-rays reviewed which showed a C5-6 ACDF with fused segment and mild collapse of C6-C7 disc space compared to prior x-rays. No significant kyphosis through this segment. MRI of cervical spine was reviewed which showed a large disc herniation causing neural foraminal stenosis on the right at C6-7. No cord signal change within the spinal cord. ASSESSMENT AND PLAN: Kristian Vasques is a 48 y.o. male with history of ACDF C5-6 in September 2017 with a new C6-7 disc herniation with right C7 radiculopathy. He has developed some triceps weakness and has constant radicular pain causing him from falling asleep. This affects his daily quality of life and ability to use his right arm. He does not have any signs or symptoms of myelopathy like he did with his prior surgery. Today we discussed surgery which would involve removal hardware of C5-6 and anterior cervical diskectomy and fusion of C6-7. He will need to see ENT surgery prior to surgery to evaluate the recurrent laryngeal nerve. Risks benefits and alternatives of surgery discussed. We will get her scheduled for surgery. Chuck Perez MD PGY-4 Resident [facility] Orthopedics ATTENDING ADDENDUM The patient was seen and examined with the resident, and I agree with the above assessment and plan. Gabriel Horner MD Draw Operator [facility] Spine Surgery Division documented in this encounter Plan of Treatment Not on file documented as of this encounter Visit Diagnoses Diagnosis Cervical radiculopathy at C7- Primary Brachial neuritis or radiculitis nos documented in this encounter Discontinued Medications Medication Sig Discontinue Reason Start Date End Da te traMADol (ULTRAM) 50 mg tablet TK ONE T PO Q 6 H PRF PAIN Therapy completed 01/18/2019 02/04/2019 cyclobenzaprine (FLEXERIL) 10 mg tablet TAKE 1 TABLET 3 TIMES DAILY NEEDED. Therapy completed 09/27/2017 02/04/2019 documented as of this encounter Care Teams Fire Chief Deputy Relationship Specialty Start Date End Date Jayla Phoenix MD [address] [place] [address] PCP - General 08/07/17 documented as of this encounter
--- OUTSIDE RECORDS SUMMARY | 2024-08-23 08:09 | XMS_ITS | Encounter Summary ---
Author Organization [facility] Care Team Providers Care Vocational Rehabilitation Technician Name Role Phone Jayla Phoenix MD Primary Care Provider Encounter Details Date Type Department Care Team (Latest Contact Info) Description 02/12/2019 Travel Social History Tobacco Use Types Packs/Day Years Used Date Smoking Tobacco: Former Cigarettes 1.5 9 1 994 - 2002 Smokeless Tobacco: Never Alcohol Use Standard Drinks/Week Comments Not Currently 0 (1 standard drink = 0.6 oz pur e alcohol) Sex and Gender Information Value Date Recorded Sex Assigned at Not on file 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
--- OUTSIDE RECORDS SUMMARY | 2024-08-23 08:09 | XMS_ITS | Encounter Summary ---
Author Organization [facility] Address [address] [place] [address] Phone Care Team Providers Care Sheet Rock Finisher Name Role Phone Jayla Phoenix MD Primary Care Provider [phone] Reason for Visit * Reason Onset Date Comments Apt Location Change 09/30/2019 Encounter Details Date Type Department Care Team (Late st Contact Info) Description 09/30/2019 Telephone [facility] Orthopaedic Surgery [address] [facility] [address] 6th [place] [address] [place] [address] Gabriel Horner MD [address] [facility] [address] [place], [place] [id number] Apt Location Change Social History Tobacco Use Types Packs/Day Years Used Date Smoking Tobacco: Former Cigarettes 1.5 9 1 994 - 2003 Smokeless Tobacco: Never Alcohol Use Standard Drinks/Week Comments Not Currently 0 (1 standard drink = 0.6 oz pur e alcohol) Sex and Gender Information Value Date Recorded Sex Assigned at Not on file Legal Sex Male 7:18 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 I left a detailed message and will also send a message via [employer] that [address] on [address] [place] [address]. NDARY SOCIAL STUDIES TEACHER documented in this encounter Plan of Treatment Not on file documented as of this encounter Visit Diagnoses Not on filedocumented in this encounter Care Teams Sheet Rock Finisher Relationship Specialty Start Date End Date Jayla Phoenix MD [address] [place] [id number] PCP - General 08/07/17 documented as of this encounter
--- OUTSIDE RECORDS SUMMARY | 2024-08-23 08:09 | XMS_ITS | Encounter Summary ---
Author Organization [facility] Healthcare Address [address] [place] [address] Care Team Providers Care Gear Keeper Name Role Phone Jayla Phoenix MD Primary Care Provider [phone] Reason for Referral * Diagnostic Imaging (Routine) - Closed Specialty Diagnoses / Procedures Referred By Elina senior Referred To Contact Radiology Diagnoses Cervical radiculopathy at C7 Cervical spondylosis with myelopathy Arthrodesis status Procedures MRI Cervical Spine WO Contrast Antonieta Sadler CNS Phone: tel: fax: [facility] [address] Referral ID Status Reason Start Date Expiration Date Visits Re quested Visits Authorized [id number] Closed 01/23/2019 02/21/2019 1 1 Reason for Visit * Diagnostic Imaging (Routine) - Closed Specialty Diagnoses / Procedures Referred By Elina senior Referred To Contact Radiology Diagnoses Cervical radiculopathy at C7 Cervical spondylosis with myelopathy Arthrodesis status Procedures MRI Cervical Spine WO Contrast Antonieta Sadler CNS Phone: tel: fax: [facility] [address] Referral ID Status Reason Start Date Expiration Date Visits Re quested Visits Authorized [id number] Closed 01/23/2019 02/21/2019 1 1 Encounter Details Date Type Department Care Team (Latest Contact Info) Description 01/28/2019 6:56 AM CDT - 01/28/2019 11:59 PM CDT Hospital Encounter [facility] [id number] [id number] Gabriel Horner MD [address] [facility] [address] [place] [address] Antonieta Sadler, [facility] [id number] [facility] [address] [place] [address] Cervical radiculopathy at C7; Cervical spondylosis with myelopathy; Arthrodesis status Discharge Disposition: Discharge to home or self care Social History Tobacco Use Types Packs/Day Years Used Date Smoking Tobacco: Never Smokeless Tobacco: Never Alcohol Use Standard Drinks/Week Comments Yes 0 (1 standard drink = 0.6 oz pur e alcohol) Sex and Gender Information Value Date Recorded Sex Assigned at Not on file 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 09/27/2017 9 dexAMETHasone (DECADRON) 2 mg tablet Take 2 mg by mouth 2 (two) times a day with meals 9 gabapentin (NEURONTIN) 300 mg capsule Take 1 capsule by mouth daily for 3 days, then increase to 1 capsule twice daily for 3 days, then 1 capsule three times a day thereafter. Do not stop medication abruptly 90 capsule 01/23/2019 9 HYDROcodone-acet aminophen (NORCO) 10-325 mg per tabletIndication s:Pain Take 1 tablet by mouth every 6 (six) hours as needed for pain 9 ketorolac (TORADOL) 10 mg tablet TK ONE T PO Q 6 H PRN P 0 01/18/2019 9 losartan (COZAAR) 25 mg tabletIndication s:hypertension 75 mg nightly 01 9 mupirocin (BACTROBAN) 2 % ointment Use a q-tip and apply inside both nostrils twice daily. Begin 5 days before surgery. 09/27/2017 9 tiZANidine (ZANAFLEX) 4 mg tablet TK 1 T PO Q 6 H for pain 0 01/18/2019 9 tiZANidine (ZANAFLEX) 4 mg tablet Take 1 tablet (4 mg total) by mouth every 8 (eight) hours as needed for muscle spasms 90 tablet 01/23/2019 9 traMADol (ULTRAM) 50 mg tablet TK ONE T PO Q 6 H PRF PAIN 0 01/18/2019 9 documented as of this encounter Discharge Disposition Disposition Code Departure Means Destination Discharge to home or self care documented in this encounter Plan of Treatment Not on file documented as of this encounter Procedures Procedure Name Priority Date/Time Associated Diagnosis Comments MRI CERVICAL SPINE WO CONTRAST Schedule Routine, Read Routine (OP Routine) 01/28/2019 7:41 AM CDT Cervical radiculopathy at C7 Cervical spondylosis with myelopathy Arthrodesis status documented in this encounter Results * MRI Cervical Spine WO Contrast (01/28/2019 7:41 AM CDT) Anatomical Region Laterality Modality Spine N/A Magnetic Resonan ce 01/28/2019 8:53 AM CDT Impressions 01/28/2019 9:45 AM CDT Examination limited by motion artifact. 1. ??Interval anterior cervical discectomy and fusion at C5-C6. ?? 2. ??Worsened right subarticular disc extrusion at C6-C7 resulting in moderate canal and severe right neuroforaminal stenosis. ?? 3. ??Additional multilevel degenerative changes as above. Dictated by: Denis Wilsno M.D. The radiology attending physician has personally reviewed this study, and had reviewed and/or edited this written report and agrees with it. Electronically signed by: Sita Quinn M.D. Narrative 01/28/2019 9:45 AM CDT EXAMINATION: Magnetic resonance imaging (MRI) of the cervical spine without contrast HISTORY: Cervical radiculopathy at C7. ??Spondylosis with myelopathy and arthrodesis. TECHNIQUE: Multiplanar multi-weighted MRI of the cervical spine was performed without intravenous contrast using the metal reduction cervical spine protocol. COMPARISON: 09/15/2016 MRI FINDINGS: Motion artifact degrades image quality multiple sequences. Interval anterior cervical discectomy and fusion at C5-C6 with kyphosis centered at C5. Vertebral bodies at the nonfused levels demonstrate normal signal intensity. No acute fracture is identified; however, if trauma is suspected, a CT scan would be a more sensitive examination for fractures. The craniocervical junction is normal. The visualized portions of the skull base and the posterior fossa are normal. Mild cord atrophy at the level C5/C6 with focal myelomalacia. Multilevel disc desiccation. No soft tissue abnormality is identified. C2-C3: Minimal disc bulge. There is no facet arthropathy. There is no uncovertebral joint disease. There is no neuroforaminal stenosis. There is no spinal canal stenosis. C3-C4: ??Mild disc bulge. There is no facet arthropathy. There is mild uncovertebral joint disease. There is moderate neuroforaminal stenosis. There is no spinal canal stenosis. C4-C5: ??Redemonstrated small left central disc protrusion. There is mild left facet arthropathy. There is no uncovertebral joint disease. There is no neuroforaminal stenosis. There is mild spinal canal stenosis. C5-C6: ??Anterior discectomy and fusion. There is no facet arthropathy. There is mild uncovertebral joint disease. There is no neuroforaminal stenosis. There is mild spinal canal stenosis. C6-C7: ??Right subarticular disc extrusion, worsened since the prior examination. There is no facet arthropathy. There is mild right uncovertebral joint disease. There is severe right neuroforaminal stenosis. There is moderate spinal canal stenosis. C7-T1: The disk is normal in configuration. There is no facet arthropathy. There is no uncovertebral joint disease. There is no neuroforaminal stenosis. There is no spinal canal stenosis. Procedure Note Sita Quinn MD - 01/28/2019 EXAMINATION: Magnetic resonance imaging (MRI) of the cervical spine without contrast HISTORY: Cervical radiculopathy at C7. Spondylosis with myelopathy and arthrodesis. TECHNIQUE: Multiplanar multi-weighted MRI of the cervical spine was performed without intravenous contrast using the metal reduction cervical spine protocol. COMPARISON: 09/15/2016 MRI FINDINGS: Motion artifact degrades image quality multiple sequences. Interval anterior cervical discectomy and fusion at C5-C6 with kyphosis centered at C5. Vertebral bodies at the nonfused levels demonstrate normal signal intensity. No acute fracture is identified; however, if trauma is suspected, a CT scan would be a more sensitive examination for fractures. The craniocervical junction is normal. The visualized portions of the skull base and the posterior fossa are normal. Mild cord atrophy at the level C5/C6 with focal myelomalacia. Multilevel disc desiccation. No soft tissue abnormality is identified. C2-C3: Minimal disc bulge. There is no facet arthropathy. There is no uncovertebral joint disease. There is no neuroforaminal stenosis. There is no spinal canal stenosis. C3-C4: Mild disc bulge. There is no facet arthropathy. There is mild uncovertebral joint disease. There is moderate neuroforaminal stenosis. There is no spinal canal stenosis. C4-C5: Redemonstrated small left central disc protrusion. There is mild left facet arthropathy. There is no uncovertebral joint disease. There is no neuroforaminal stenosis. There is mild spinal canal stenosis. C5-C6: Anterior discectomy and fusion. There is no facet arthropathy. There is mild uncovertebral joint disease. There is no neuroforaminal stenosis. There is mild spinal canal stenosis. C6-C7: Right subarticular disc extrusion, worsened since the prior examination. There is no facet arthropathy. There is mild right uncovertebral joint disease. There is severe right neuroforaminal stenosis. There is moderate spinal canal stenosis. C7-T1: The disk is normal in configuration. There is no facet arthropathy. There is no uncovertebral joint disease. There is no neuroforaminal stenosis. There is no spinal canal stenosis. IMPRESSION: Examination limited by motion artifact. 1. Interval anterior cervical discectomy and fusion at C5-C6. 2. Worsened right subarticular disc extrusion at C6-C7 resulting in moderate canal and severe right neuroforaminal stenosis. 3. Additional multilevel degenerative changes as above. Dictated by: Denis Wilson M.D. The radiology attending physician has personally reviewed this study, and had reviewed and/or edited this written report and agrees with it. Electronically signed by: Sita Quinn M.D. Antonieta Sadler FRONT END TECHNICIAN IMG MRI PROCEDURES Final Re sult documented in this encounter Visit Diagnoses Diagnosis Cervical radiculopathy at C7 Brachial neuritis or radiculitis nos Cervical spondylosis with myelopathy Arthrodesis status documented in this encounter Care Teams Gear Keeper Relationship Specialty Start Date End Date Jayla Phoenix MD [address] [place] [address] PCP - General 08/07/17 documented as of this encounter
--- OUTSIDE RECORDS SUMMARY | 2024-08-23 08:09 | XMS_ITS | Encounter Summary ---
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 Gender Identity Male 02/04/2019 10:52 AM CDT Sexual Orientation Straight 02/04/2019 10 :52 AM CDT documented as of this encounter Plan of Treatment Not on file documented as of this encounter Procedures Procedure Name Priority Date/Time Associated Diagnosis Comments SCAN - LABS 01/26/2020 documented in this encounter Results * SCAN - LABS (01/26/2020) us Provider Scanning Final Result documented in this encounter Visit Diagnoses Not on filedocumented in this encounter Care Teams Fountain Manager Relationship Specialty Start Date End Date Jayla Phoenix MD [address] [place] [address] PCP - General 08/07/17 documented as of this encounter
--- OUTSIDE RECORDS SUMMARY | 2024-08-23 08:09 | XMS_ITS | Encounter Summary ---
Author Organization [facility] Address [address] [place] [address] Phone Care Team Providers Care Pharmacy Operations Coordinator Name Role Phone Jayla Phoenix MD Primary Care Provider [phone] Reason for Visit * Reason Onset Date Comments [employer] 02/09/2019 Encounter Details Date Type Department Care Team (Late st Contact Info) Description 02/09/[address] 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 [phone] ext [phone] documented in this encounter Plan of Treatment Not on file documented as of this encounter Visit Diagnoses Not on filedocumented in this encounter Care Teams Pharmacy Operations Coordinator Relationship Specialty Start Date End Date Jayla Phoenix MD [address] [place], [place] [id number] PCP - General 08/07/17 documented as of this encounter
--- OUTSIDE RECORDS SUMMARY | 2024-08-23 08:09 | XMS_ITS | Encounter Summary ---
Author Organization [facility] Address [address] [place] [address] Phone Care Team Providers Care Email Marketing Specialist Name Role Phone Jayla Phoenix MD Primary Care Provider [phone] Reason for Referral * Diagnostic Imaging (Routine) - Closed Specialty Diagnoses / Procedures Referred By Elina senior Referred To Contact Radiology Diagnoses Crohn's disease of small and large intestines with complication (HCC) Procedures MRI Enterography (abdomen) W WO Contrast Stefany Zuniga NP [address] [place] [address] Phone: tel: fax: [facility] Referral ID Status Reason Start Date Expiration Date Visits Re quested Visits Authorized [id number] Closed 01/20/2020 07/31/2021 1 1 Reason for Visit * Consultation (Routine) - Closed Specialty Diagnoses / Procedures Referred By Contjaycee t Referred To Contact Gastroenterology Diagnoses Crohn's colitis, other complication (HCC) Jayla Phoenix MD [address] [place] [address] Phone: tel: fax: [facility] (All Locations) Referral ID Status Reason Start Date Expiration Date V isits Requested Visits Authorized [id number] Closed Specialty Services Required 09/29/2019 04/09/2021 9 9 Encounter Details Date Type Department Care Team (Late st Contact Info) Description 01/20/2020 8:30 AM CDT Telemedicine [facility] Gastroenterology [address] [facility] [address] [place] [address] Stefany Zuniga NP [address] [place] [address] Crohn's disease of small and large intestines with complication (CMS/HCC) (Primary Dx); Crohn's disease of both small [...] on file 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 During the visit, I was located [place], [place] and the patient was located [place], [place]. The session started at 833 and ended at 844. The patient has been informed that the visit may not be secure and acknowledged the information. I have explained the option of participating in a telephone or video visit during the ID- public health emergency to the patient. After being given an opportunity to ask questions about and discuss this type of visit, the patient verbally consented to proceeding with the telephone / video visit. The patient understands that this service replaces an office visit and they may be billed and/or responsible for any applicable copayments. Referred here Primary Care Physician: Jayla Phoenix MD Consult requested by: Jayla Phoenix MD Chief Complaint: Crohns Disease HPI Kristian Vasques, is a 49 y.o.male who presents for follow up of Crohns disease diagnosed in 2000. Had been on pentasa in the past. Not on any current IBD medications. He had an IC resection in 2008.No family history. His last colonoscopy was in 2006. Recent increase in symptoms. He reports urgency of stool and some nocturnal symptoms. He is having diarrhea with 4-5 stools daily on average. For most part stools liquid/loose but more formed on the weekend. Attributes this to his liquid oral intake being lower on the weekend. 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 Denies any hematochezia. Reports some occasional lower abdominal pain prior to defecation. He does have some joint pain in his shoulders, elbows and knees but he attributes this to his physical job. Past Medical History: Diagnosis Date ??? Gastric reflux ??? HTN (hypertension) Past Surgical History: Procedure Laterality Date ??? ANTERIOR CERVICAL DISCECTOMY W/ FUSION 2017 ??? BOWEL RESECTION 2009 Patient Active Problem List Diagnosis Date Noted ??? Crohn's disease of both small and large intestine with other complication ([facility] 01/22/2020 Overview Note: Year of diagnosis: 2000. Year symptoms began: 2000. Phenotype: Penetrating (B3) without perianal disease. Distribution: ileocolonic (L3) without upper GI disease (L4). Extraintestinal manifestations: arthralgias. Complications: none. Prior treatments: pentasa. Current treatment: none. Prior surgeries: IC resection 2008. Endoscopies: last colonoscopy 2006. Imaging: none. IBD HEALTH MAINTENANCE HBV vaccination status: ??? 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 Cervical radiculopathy 02/02/2019 Overview Note: Added automatically from request for surgery [id number] ??? Fusion of spine of cervical region 02/02/2019 Overview Note: Added automatically from request for surgery [id number] ??? Cervical radiculopathy at C7 01/23/2019 ??? Cervical pain (neck) 09/03/2017 Current Outpatient Medications Medication Sig Dispense Refill ??? cholestyramine-aspartame 4 gram powder Take 1 Scoop by mouth every morning 1 Can 0 ??? cyanocobalamin, vitamin B-12, 5,000 mcg tablet, [...] Start date: 1993 Last attempt to quit: 2002 Years since quittin.4 ??? Smokeless tobacco: Never Used Substance Use Topics ??? Alcohol use: Not Currently ??? Drug use: No ROS Constitutional: Negative. HENT: Negative for sore throat and trouble swallowing. Eyes: Negative. Respiratory: Negative. Cardiovascular: Negative. Gastrointestinal: See HPI Endocrine: Negative. Genitourinary: Negative. Musculoskeletal: Negative. Skin: Negative. Allergic/Immunologic: Negative. Neurological: Negative. Hematological: Negative. Psychiatric/Behavioral: Negative. Breast: Negative. All other systems negative. Vital Signs Deferred due to telemedicine visit. Physical Exam GENERAL: Well-appearing, in no acute distress. Results Results for orders placed or performed during the hospital encounter of 02/16/19 CBC without differential Result Value Ref Range WBC 10.0 (H) 3.8 - 9.9 K/cumm Hgb 12.4 (L) 13.0 - 17.5 g/dL Hct 37.9 (L) 38.9 - 50.3 % Plt 240 150 - 400 K/cumm MPV 9.3 9.1 - 12.3 fL RBC 4.20 (L) 4.30 - 5.80 M/cumm MCV 90.2 81.3 - 96.4 fL MCH 29.5 27.1 - 33.3 pg MCHC 32.7 32.3 - 35.7 g/dL RDW CV 12.9 11.1 - 14.9 % RDW SD 42.5 35.7 - 48.1 fL NRBC abs 0.00 0.00 - 0.01 K/cumm Basic metabolic panel Result Value Ref Range Sodium 140 135 - 145 mmol/L Potassium, pl 4.5 3.3 - 4.9 mmol/L Chloride 104 97 - 110 mmol/L CO2 23 22 - 32 mmol/L Anion gap 13 2 - 15 mmol/L BUN 12 8 - 25 mg/dL Creatinine 1.20 0.80 - 1.30 mg/dL Glucose 99 70 - 199 mg/dL Calcium 8.7 8.5 - 10.3 mg/dL eGFR Result Value Ref Range GFR >60 mL/min/1.73 m2 Assessment/Plan Crohns Disease Penetrating IC CD dx 2000. S/p IC resection in 2008. Had been on pentasa. Has not been on any IBD medications for many years. Now with more symptoms of diarrhea, urgency and some intermittent abdominal pain. Has not had endoscopic evaluation since likely 2006 and no recent imaging. Imodium has not been helpful for his diarrhea in the past -will plan to reevaluate at this time -will check colonoscopy -will check MRE for small bowel evaluation -will start questran -check labs including CMP, CBC, CRP -follow up in 2 months -if active disease noted will have to consider biologic therapy Orders Orders Placed This Encounter Procedures ??? MRI Enterography (abdomen) W WO Contrast Standing Status: Future Standing Expiration Date: 01/19/2021 Order Specific Question: Is patient claustrophobic? Answer: No Order Specific Question: Is patient able to lie flat for at least one hour? Answer: Yes Order Specific Question: Where should this order be performed? Answer: [facility] [[id number]] Explained to patient that these recommendations are given taking into account given unique circumstances around evolving COVID-19 pandemic. We are taking into account considerations including patientcontacts, age, underlying medical diseases, travel history, and best estimate regarding acuity of this problem when determining the best time for patient to present live in our clinical setting. documented in this encounter Plan of Treatment [...] on providers answering machine and sent via APROOFED at 3:51 PM 02/29/2020. Dictated by: Mario [...] on providers answering machine and sent via APROOFED at 3:51 PM 02/29/2020. Dictated by: Mario Francisco D.O. The radiology attending physician has personally reviewed this study, and had reviewed and/or edited this written report and agrees with it. Electronically signed by: David Head M.D. Stefany Zuniga NP [facility] MRI PROCEDURES Final R esult documented in this encounter Visit Diagnoses Diagnosis Crohn's disease of small and large intestines with complication (HCC)- Primary Crohn's disease of both small and large intestine with other complication (HCC) Crohn's disease of small and large intestines with complication (HCC) documented in this encounter Care Teams Email Marketing Specialist Relationship Specialty Start Date End Date Jayla Phoenix MD [address] [place] [address] PCP - General 08/07/17 documented as of this encounter
--- OUTSIDE RECORDS SUMMARY | 2024-08-23 08:09 | XMS_ITS | Encounter Summary ---
Author Organization [facility] Healthcare Address [address] [place] [address] Care Team Providers Care Twine Winder Name Role Phone Jayla Phoenix MD Primary Care Provider [phone] Reason for Referral * Diagnostic Imaging (Routine) - Closed Specialty Diagnoses / Procedures Referred By Contac t Referred To Contact Diagnoses Fusion of spine of cervical region Procedures XR Spine Cervical W Flexion And Extension 6 or More Views Gabriel Horner MD Phone: tel: fax: [facility] Referral ID Status Reason Start Date Expiration Date Visits Re quested Visits Authorized [id number] Closed 07/14/2019 01/22/2021 1 1 FOOD SALES ASSISTANT Reason for Visit * Diagnostic Imaging (Routine) - Closed Specialty Diagnoses / Procedures Referred By Contac t Referred To Contact Diagnoses Fusion of spine of cervical region Procedures XR Spine Cervical W Flexion And Extension 6 or More Views Gabriel Horner MD Phone: tel: fax: [facility] Referral ID Status Reason Start Date Expiration Date Visits Re quested Visits Authorized [id number] Closed 07/14/2019 01/22/2021 1 1 Encounter Details Date Type Department Care Team (Latest Contact Info) Description 08/05/2019 10:53 AM FAST FOOD SALES ASSISTANT - 08/05/2019 11:59 PM FAST FOOD SALES ASSISTANT Hospital Encounter [facility] [address] [place] [address] Gabriel Horner MD [address] [facility] [address] [place] [address] Fusion of spine of cervical region Discharge [...] on file Legal Sex Male 7:18 PM 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 ASSISTANT Gender Identity Male 02/04/2019 10:52 AM CDT Sexual Orientation Straight 02/04/2019 10 :52 AM CDT documented as of this encounter Medications at Time of Discharge cyanocobalamin, vitamin B-12, 5,000 mcg tablet, sublingualIndica tions:Prevention of Vitamin B12 Deficiency Place 1 tablet under the tongue deputy sheriff chief before breakfast losartan-hydroch lorothiazide (HYZAAR) 100-25 mg per tabletIndication s:hypertension Take 1 tablet by mouth nightly 02/23/2019 multivitamin capsuleIndicatio ns:Vitamin Deficiency Prevention Take 1 capsule by mouth deputy sheriff chief before breakfast cholestyramine-a spartame 4 gram powderIndication s:for bowel resection every morning 09/18/2010 0 documented as of this encounter Discharge Disposition Disposition Code Departure Means Destination Discharge to home or self care documented in this encounter Plan of Treatment Not on file documented as of this encounter Procedures Procedure Name Priority Date/Time Associated Diagnosis Comments XR SPINE CERVICAL W FLEXION AND EXTENSION 6 OR MORE VIEWS Schedule Routine, Read Routine (OP Routine) 08/05/2019 11:02 AM FAST FOOD SALES ASSISTANT Fusion of spine of cervical region documented in this encounter Results * XR Spine Cervical W Flexion And Extension 6 or More Views (08/05/2019 11:02 AM FAST FOOD SALES ASSISTANT) Anatomical Region Laterality Modality Spine N/A Computed Radiogr aphy 08/05/2019 11:1 1 AM FAST FOOD SALES ASSISTANT Impressions 08/05/2019 11:11 AM FAST FOOD SALES ASSISTANT Unchanged instrumented anterior C6-C7 and non-instrumented anterior C5-C6 fusions. ??No abnormal motion on bending. Electronically signed by: Marciano Hodges M.D. Narrative 08/05/2019 11:11 AM FAST FOOD SALES ASSISTANT XR SPINE CERVICAL W FLEXION AND EXTENSION [...] bending. Electronically signed by: Marciano Hodges M.D. [facility] Chuck Horner MD IMG XR PROCEDURES Final Re sult documented in this encounter Visit Diagnoses Diagnosis Fusion of spine of cervical region documented in this encounter Care Teams Twine Winder Relationship Specialty Start Date End Date Jayla Phoenix MD [address] [place] [address] PCP - General 08/07/17 documented as of this encounter
--- OUTSIDE RECORDS SUMMARY | 2024-08-23 08:09 | XMS_ITS | Encounter Summary ---
Author Organization [facility] Facility Care Team Providers Care Guidance Director Name Role Phone Jayla Phoenix MD Primary Care Provider Encounter Details Date Type Department Care Team (Latest Contact Info) Description 09/29/2019 Travel Social History Tobacco Use Types Packs/Day Years Used Date Smoking Tobacco: Former Cigarettes 1.5 9 1 994 - 2002 Smokeless Tobacco: Never Alcohol Use Standard Drinks/Week Comments Not Currently 0 (1 standard drink = 0.6 oz pur e alcohol) Sex and Gender Information Value Date Recorded Sex Assigned at Not on file 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
--- OUTSIDE RECORDS SUMMARY | 2024-08-23 08:09 | XMS_ITS | Encounter Summary ---
Author Organization [facility] Address [address] [place] [address] Phone Care Team Providers Care Hay Chopper Name Role Phone Jayla Phoenix MD Primary Care Provider [phone] Encounter Details Date Type Department Care Team (Late st Contact Info) Description 02/02/2019 Documentation [facility] Orthopaedic Surgery [address] [facility] 1st Floor [address] [place] [phone] Antonieta Sadler, [facility] [address] [facility] [address] [place] [address] Social History Tobacco Use Types Packs/Day Years Used Date Smoking Tobacco: Never Smokeless Tobacco: Never Alcohol Use Standard Drinks/Week Comments Yes 0 (1 standard drink = 0.6 oz pur e alcohol) Sex and Gender Information Value Date Recorded Sex Assigned at Not on file 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 He has an acute c6-c7 disc herniation which producesmoderate spinal canal stenosis and severe foraminal stenosis. He has a weak right tricep. His exam is positive for myelopathy but this was baseline. I do not think injections are a good option for him. We will scheduled him an appointment to see Dr. Horner for discussion of surgery. documented in this encounter Plan of Treatment Not on file documented as of this encounter Visit Diagnoses Not on filedocumented in this encounter Care Teams Hay Chopper Relationship Specialty Start Date End Date Jayla Phoenix MD [address] [place] [address] PCP - General 08/07/17 documented as of this encounter
--- OUTSIDE RECORDS SUMMARY | 2024-08-23 08:09 | XMS_ITS | Encounter Summary ---
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 No / Unsure 11/18/2019 12:35 PM CDT documented as of this encounter Plan of Treatment Not on file documented as of this encounter Visit Diagnoses Not on filedocumented in this encounter Care Teams Bicycle Designer Relationship Specialty Start Date End Date Jayla Phoenix MD [address] [place] [address] PCP - General 08/07/17 documented as of this encounter
--- OUTSIDE RECORDS SUMMARY | 2024-08-23 08:09 | XMS_ITS | Encounter Summary ---
Author Organization [facility] Address [address] [place] [address] Phone Care Team Providers Care Medical Scientist Name Role Phone Jayla Phoenix MD Primary Care Provider [phone] Reason for Visit * Reason Onset Date Comments Pre Surgical Calls 02/12/2019 Encounter Details Date Type Department Care Team (Late st Contact Info) Description 02/12/2019 Telephone [facility] Orthopaedic Surgery [address] [facility] 6th [place] [address] [place] [address] Gabriel Horner MD [address] [id number] Pre Surgical Calls Social History Tobacco Use Types Packs/Day Years Used Date Smoking Tobacco: Former Cigarettes 1.5 9 1 994 - 2003 Smokeless Tobacco: Never Alcohol Use Standard Drinks/Week Comments Not Currently 0 (1 standard drink = 0.6 oz pur e alcohol) Sex and Gender Information Value Date Recorded Sex Assigned at Not on file 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 Male 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 Gender Identity Male 02/04/2019 10:52 AM CDT Sexual Orientation Straight 02/04/2019 10 :52 AM CDT documented as of this encounter Ordered Prescriptions Prescription Sig Dispense Quantity Refills Last Filled Start Date End Date sulfamethoxazole-t rimethoprim (BACTRIM DS,SEPTRA DS) 800-160 mg per tabletIndications: Abnormal urinalysis Take 1 tablet by mouth 2 (two) times a day for 5 days 10 tablet 02/12/2019 02/17/2019 documented in this encounter Miscellaneous Notes * Telephone Encounter - Dinah Ribeiro RN - 02/12/2019 3:31 PM CDT I called Kristian today to tell him to arrive for surgery at 845 on Saturday instead of the discussed time of 11am. I also told him that his urinalysis is positive and he does have some urinary urgency. I have sent him a script for antibiotics for him to start since the culture will not be back before Saturday. documented in this encounter Plan of Treatment Not on file documented as of this encounter Visit Diagnoses Diagnosis Abnormal urinalysis- Primary Other nonspecific finding on examination of urine documented in this encounter Care Teams Medical Scientist Relationship Specialty Start Date End Date Jayla Phoenix MD [address] [place] [address] PCP - General 08/07/17 documented as of this encounter
--- OUTSIDE RECORDS SUMMARY | 2024-08-23 08:09 | XMS_ITS | Encounter Summary ---
Author Organization [facility] Address [address] [place] [address] Phone Care Team Providers Care Hand Tool Lapper Name Role Phone Jayla Phoenix MD Primary Care Provider [phone] Encounter Details Date Type Department Care Team (Late st Contact Info) Description 01/20/2020 Telephone [facility] Gastroenterology [address] [facility] Medical Office [address] [place] [address] Corbin Duque MD [address] [place] [address] Social History Tobacco Use Types Packs/Day Years Used Date Smoking Tobacco: Former Cigarettes 1.5 9 1 994 - 2003 Smokeless Tobacco: Never Alcohol Use Standard Drinks/Week Comments Not Currently 0 (1 standard drink = 0.6 oz pur e alcohol) Sex and Gender Information Value Date Recorded Sex Assigned at Not on file 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 I left a message and will send him a portal message as well. documented in this encounter Plan of Treatment Not on file documented as of this encounter Visit Diagnoses Not on filedocumented in this encounter Care Teams Hand Tool Lapper Relationship Specialty Start Date End Date Jayla Phoenix MD [address] [place], [place] [id number] PCP - General 08/07/17 documented as of this encounter
--- OUTSIDE RECORDS SUMMARY | 2024-08-23 08:10 | XMS_ITS | Encounter Summary ---
Author Organization [facility] Address [address] [place] [address] Phone Care Team Providers Care Farm Butcher Name Role Phone Jayla Phoenix MD Primary Care Provider [phone] Reason for Visit * Reason Onset Date Comments Appointment 01/22/2019 Encounter Details Date Type Department Care Team (Late st Contact Info) Description 01/22/2019 Telephone [facility] Orthopaedic Surgery [address] [facility] 6th [place] [address] [place] [id number] Gabriel Horner MD [address] [address] Appointment Social History Tobacco Use Types Packs/Day Years Used Date Smoking Tobacco: Never Smokeless Tobacco: Never Alcohol Use Standard Drinks/Week Comments Yes 0 (1 standard drink = 0.6 oz pur e alcohol) Sex and Gender Information Value Date Recorded Sex Assigned at Not on file 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 Horner. He thinks he may have another herniated disc. He states the pain started about 2 weeks ago in the right side of his neck and down his right arm. He c/o right hand numbness in 1st and 2nd fingers. He states they are completely numb. He can not sleep lately due to the pain and can hardly get out of bed. I have r/s the appt that was incorrectly made with Dr. Horner and r/s him to see Antonieta for an updatedwork up with imaging since he was discharged from Dr. Horner at his last office visit. He is aware of the date, time and location. The appt was made for tomorrow, Tuesday 01/23 @ 0930 with an arrival time of 0900 at 969 with Antonieta Sadler. documented in this encounter Plan of Treatment Not on file documented as of this encounter Visit Diagnoses Not on filedocumented in this encounter Care Teams Farm Butcher Relationship Specialty Start Date End Date Jayla Phoenix MD [address] [place] [address] PCP - General 08/07/17 documented as of this encounter
--- OUTSIDE RECORDS SUMMARY | 2024-08-23 08:10 | XMS_ITS | Encounter Summary ---
Author Organization [facility] Healthcare Address [address] [place] [address] Care Team Providers Care Music Specialist Name Role Phone Jayla Phoenix MD Primary Care Provider + [phone] Reason for Referral * Diagnostic Imaging (Routine) - Closed Specialty Diagnoses / Procedures Referred By Rafaelac t Referred To Contact Diagnoses Cervical radiculopathy Fusion of spine of cervical region Procedures XR Spine Cervical W Flexion And Extension 6 or More Views Gabriel Horner MD Phone: tel: fax: [facility] [address] Referral ID Status Reason Start Date Expiration Date Visits Re quested Visits Authorized [id number] Closed 01/22/2019 08/02/2020 1 1 Reason for Visit * Diagnostic Imaging (Routine) - Closed Specialty Diagnoses / Procedures Referred By Elina t Referred To Contact Diagnoses Cervical radiculopathy Fusion of spine of cervical region Procedures XR Spine Cervical W Flexion And Extension 6 or More Views Gabriel Horner MD Phone: tel: fax: [facility] [address] Referral ID Status Reason Start Date Expiration Date Visits Re quested Visits Authorized [id number] Closed 01/22/2019 08/02/2020 1 1 Encounter Details Date Type Department Care Team (Latest Contact Info) Description 01/23/2019 9:13 AM CDT - 01/23/2019 11:59 PM CDT Hospital Encounter [facility] [address] [facility] [address] [place] [address] Gabriel Horner MD [address] [facility] [address] [place] [address] Cervical radiculopathy; Fusion of spine of cervical region Discharge Disposition: Discharge to home or self care Social History Tobacco Use Types Packs/Day Years Used Date Smoking Tobacco: Never Smokeless Tobacco: Never Alcohol Use Standard Drinks/Week Comments Yes 0 (1 standard drink = 0.6 oz pur e alcohol) Sex and Gender Information Value Date Recorded Sex Assigned at Not on file 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 ??Healed C5-C6 anterior cervical discectomy and instrumented fusion with normal motion with flexion-extension. 2. ??Unchanged mild C6-C7 osteoarthritis Electronically signed by: Mamadou Ni M.D. Narrative 01/23/2019 9:38 AM CDT EXAMINATION: Cervical spine minimum 6 views HISTORY: Cervicalgia FINDINGS: 6 view examination of the cervical spine is performed and compared to prior study on 07/08/2018. ??There is a healed C5-C6 anterior cervical discectomy and instrumented fusion. ??There is mild osteoarthritis at the non-instrumented C6-C7 level. ??There is no prevertebral soft tissue swelling. ??There is no neuroforaminal stenosis bilaterally. Procedure Note Mamadou Ni MD - 01/23/2019 EXAMINATION: Cervical spine minimum 6 views HISTORY: Cervicalgia FINDINGS: 6 view examination of the cervical spine is performed and compared to prior study on 07/08/2018. There is a healed C5-C6 anterior cervical discectomy and instrumented fusion. There is mild osteoarthritis at the non-instrumented C6-C7 level. There is no prevertebral soft tissue swelling. There is no neuroforaminal stenosis bilaterally. IMPRESSION: 1. Healed C5-C6 anterior cervical discectomy and instrumented fusion with normal motion with flexion-extension. 2. Unchanged mild C6-C7 osteoarthritis Electronically signed by: Mamadou Ni M.D. [facility] Chuck Horner MD IMG XR PROCEDURES Final Re sult documented in this encounter Visit Diagnoses Diagnosis Cervical radiculopathy Brachial neuritis or radiculitis nos Fusion of spine of cervical region documented in this encounter Care Teams Music Specialist Relationship Specialty Start Date End Date Jayla Phoenix MD [address] [place], [place] [id number] PCP - General 08/07/17 documented as of this encounter
--- OUTSIDE RECORDS SUMMARY | 2024-08-23 08:10 | XMS_ITS | Encounter Summary ---
Author Organization [facility] Healthcare Address [address] [place] [address] Care Team Providers Care Body Specialist Name Role Phone Unavailable Primary Care Provider Unavailabl e Encounter Details Date Type Department Care Team (Late st Contact Info) Description 09/25/2013 10:21 AM FIRE ALARM OPERATOR - 09/25/2013 2:50 PM FIRE ALARM OPERATOR Hospital Encounter [place] [id number] [address] Calculus of kidney; Hydronephrosis; Regional enteritis (CMS/HCC) (HCC); Hypertonicity of bladder Social History Tobacco Use Types Packs/Day Years Used Date Smoking Tobacco: Never Assessed Sex and Gender Information Value Date Recorded Sex Assigned at Not on file 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 Admit Date: 09/25/2013 Surgeon: Edgard Olmstead M.D. Disch. Date: 09/25/2013 REVISED/CHANGED FROM CONSULTATION ON 10/12/13 AT 0935 DATE OF SURGERY: September 25, 2013. PREOPERATIVE DIAGNOSIS: Removal of ureteral stent. POSTOPERATIVE DIAGNOSIS: Removal of ureteral stent. PROCEDURE: The patient is placed on the operating table under general anesthesia. Prior to ESWL his ureteral stent was removed. This had been placed previously and this did attach to a Nylon string exiting from his penis. The string was simply grasped and the entire stent was removed without problems. He then proceeded with ESWL without problems or difficulties. The ESWL was dictated under a separate report. He tolerated the procedure well and was discharged from the Outpatient Department. Authenticated by Edgard Olmstead MD On 10/09/2013 03:07:48 PM Edgard Olmstead M.D. RAB/dp TD: 10/08/2013 12:25 Authenticated by Edgard Olmstead MD On 10/13/2013 09:39:02 AM documented in this encounter Plan of Treatment Not on file documented as of this encounter Procedures Procedure Name Priority Date/Time Associated Diagnosis Comments XR ABDOMEN AP 1V Routine 09/25/2013 11:1 7 AM FIRE ALARM OPERATOR documented in this encounter Results * XR Abdomen AP 1V (09/25/2013 11:17 AM FIRE ALARM OPERATOR) Anatomical Region Laterality Modality Body N/A Radiographic Tiffany ging 09/25/2013 11:1 7 AM FIRE ALARM OPERATOR Narrative 09/25/2013 1:22 PM FIRE ALARM OPERATOR DATE OF EXAM: ??Feb ??2013 11:17AM Acc#: ??[id number] ??EDX 0217 - XR KUB ?? DIAGNOSIS: ??EXTRACORPOREAL SHOCK WAVE LITH CLINICAL HISTORY: ?? preop RESULT: \ CT KUB, 09/25/2013. HISTORY: ??Preop bilateral kidney stones. COMPARISON: ??09/04/2013. FINDINGS: ??A left ureteral stent is in place with the proximal loop in expected location of left renal pelvis and the distal loop in expected location of urinary bladder. ??Adjacent to the proximal loop, there are irregular calcific densities which most likely correlate with calcified left renal stones. ??In the midpole of right kidney, there is a 5-mm stable calcified urinary stone. ??The surgical suture line of intestine is seen in the right mid abdomen, unchanged. ??The imaged bones are stable and are unremarkable. ??The bowel gas pattern is nonobstructive. ??The imaged bones are unremarkable. IMPRESSION: 1. ??THE LEFT URETERAL STENT IS NEW FROM THE PRIOR STUDY. 2. ??THERE ARE MULTIPLE CALCIFIED URINARY STONES PROJECTING OVER THE LEFT RENAL SILHOUETTE AROUND THE PROXIMAL LOOP OF THE LEFT URETERAL STENT. 3. ??THE CALCIFIED URINARY STONE OF THE RIGHT KIDNEY IS STABLE. ? UX RESEARCH ASSOCIATE: ??PW2 TRANSCRIBE DATE/TIME: ??Sep ??2013 ??1:01P RADIOLOGIST: ??SHALINI REINOSO M.D. ??READ ON: ??Sep ??2013 12:06P ORDERING DR: EDGARD OLMSTEAD M.D. THIS DOCUMENT HAS BEEN ELECTRONICALLY SIGNED BY: ??SHALINI REINOSO M.D. ??ON: ??Sep ??2013 ??1:22P Requesting Fax: ??[phone] Procedure Note Provider, MD Rajeev - 12/19/2016 DATE OF EXAM: Sep 25 2013 11:17AM Acc#: [id number] EDX 0217 - XR KUB DIAGNOSIS: EXTRACORPOREAL SHOCK WAVE LITH CLINICAL HISTORY: preop RESULT: \ CT KUB, 09/25/2013. HISTORY: Preop bilateral kidney stones. COMPARISON: 09/04/2013. FINDINGS: A left ureteral stent is in place with the proximal loop in expected location of left renal pelvis and the distal loop in expected location of urinary bladder. Adjacent to the proximal loop, there are irregular calcific densities which most likely correlate with calcified left renal stones. In the midpole of right kidney, there is a 5-mm stable calcified urinary stone. The surgical suture line of intestine is seen in the right mid abdomen, unchanged. The imaged bones are stable and are unremarkable. The bowel gas pattern is nonobstructive. The imaged bones are unremarkable. IMPRESSION: 1. THE LEFT URETERAL STENT IS NEW FROM THE PRIOR STUDY. 2. THERE ARE MULTIPLE CALCIFIED URINARY STONES PROJECTING OVER THE LEFT RENAL SILHOUETTE AROUND THE PROXIMAL LOOP OF THE LEFT URETERAL STENT. 3. THE CALCIFIED URINARY STONE OF THE RIGHT KIDNEY IS STABLE. UX RESEARCH ASSOCIATE: SHIRA TRANSCRIBE DATE/TIME: Sep 25 2013 1:01P RADIOLOGIST: SHALINI REINOSO M.D. READ ON: Sep 25 2013 12:06P ORDERING DR: EDGARD OLMSTEAD M.D. THIS DOCUMENT HAS BEEN ELECTRONICALLY SIGNED BY: SHALINI REINOSO M.D. ON: Sep 25 2013 1:22P Requesting us Historical Provider MD HUFFMAN XR PROCEDURES Final R esult documented in this encounter Visit Diagnoses Diagnosis Calculus of kidney Hydronephrosis Regional enteritis (CMS/HCC) (HCC) Regional enteritis of unspecified site Hypertonicity of bladder documented in this encounter
--- OUTSIDE RECORDS SUMMARY | 2024-08-23 08:10 | XMS_ITS | Encounter Summary ---
Author Organization [facility] Healthcare Address [address] [place] [address] Care Team Providers Care Fingerprint Classifier Name Role Phone Unavailable Primary Care Provider Unavailabl e Encounter Details Date Type Department Care Team (Late st Contact Info) Description 09/04/2013 11:45 AM EMAIL MARKETING EXECUTIVE - 09/04/2013 6:26 PM EMAIL MARKETING EXECUTIVE Hospital Encounter [place] [address] [address] Calculus of kidney; Regional enteritis (CMS/HCC) (HCC); Hydronephrosis Social History Tobacco Use Types Packs/Day Years Used Date Smoking Tobacco: Never Assessed Sex and Gender Information Value Date Recorded Sex Assigned at Not on file 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 Account: [id number] Room No: 170-04 : 1970 Patient Type: SDS Attend.: Edgard Olmstead M.D. Admit Date: 09/04/2013 Surgeon: Edgard Olmstead M.D. Disch. Date: DATE OF OPERATION: 09/04/2013 PREOPERATIVE DIAGNOSIS: Left kidney stones. POSTOPERATIVE DIAGNOSIS: Left kidney stones. OPERATIVE PROCEDURE: Cystoscopy, stent placement, and left ESWL. HISTORY: This 43-year-old man has had bilateral back and flank pain, and CT scan has demonstrated bilateral renal calculi with the largest stone in the left renal pelvis. He is now brought to the operating room for left ESWL and preoperative stent placement because of the size and location of the stone. DESCRIPTION OF PROCEDURE: After a satisfactory level of anesthesia, the genitalia were prepped with Betadine and draped in the usual fashion. Cystourethroscopy was performed with #22 [place] obturator 30 and 70 degree angled lenses. The penile urethra and bladder were unremarkable. There were no signs of any stones, tumors, or inflammation. Prostate was small and not causing any obstruction. The left ureteral orifice was well-visualized, and cannulated with a 0.035 Sensor guide wire which was passed up the ureter beyond the stone into the left renal pelvis. With the guide wire in position a Percuflex stent was passed, size 6 x 26. This will be left indwelling postoperatively. The string was left on the end of the stent which was taped to the patient's penis. He tolerated this portion of the procedure without difficulty. He was then placed supine for left ESWL of the stone. The patient and his have been instructed on postoperative care and given prescriptions for antibiotics and analgesics, and should return to the office for follow-up in three weeks. They were given the usual warnings regarding urgency, frequency, pain, hematuria, and possible incontinence, and should return to the office in three weeks with a KUB to decide the next steps. They understand this is a very large, hard stone and that additional procedures certainly may be required. Edgard Olmstead M.D. NAINA/ms TD: 09/04/2013 18:30 Authenticated by Edgard Olmstead MD On 09/07/2013 11:49:56 AM documented in this encounter Plan of Treatment Not on file documented as of this encounter Procedures Procedure Name Priority Date/Time Associated Diagnosis Comments XR ABDOMEN AP 1V Routine 09/04/2013 12:4 3 PM EMAIL MARKETING EXECUTIVE PLASMA PROTHROMBIN TIME (PT) Routine 09/04/2013 11:56 AM EMAIL MARKETING EXECUTIVE BLOOD HEMOGLOBIN, HEMATOCRIT Routine 09/04/2013 11:56 AM EMAIL MARKETING EXECUTIVE DISCHARGE LABORATORY CUMULATIVE REPORT 09/04/2013 documented in this encounter Results * XR Abdomen AP 1V (09/04/2013 12:43 PM EMAIL MARKETING EXECUTIVE) Anatomical Region Laterality Modality Body N/A Radiographic Tiffany ging 09/04/2013 12:4 3 PM EMAIL MARKETING EXECUTIVE Narrative 09/04/2013 3:04 PM EMAIL MARKETING EXECUTIVE DATE OF EXAM: ??Sep 04 2013 12:43PM Acc#: ??[id number] ??EDX 0217 - XR KUB ?? DIAGNOSIS: ??EXTRACORPOREAL SHOCK WAVE LITH CLINICAL HISTORY: ?? having surgery RESULT: \ EXAMINATION: SUPINE ABDOMINAL RADIOGRAPH, ONE VIEW. FINDINGS: ??No prior examination is available for comparison. ??A 5 mm rounded calcification projects over the superior aspect of the right renal pelvis. ??Projecting over the mid left twelfth rib, an approximately 2 cm density is noted. ??Additionally, this projects over the left renal shadow. ??This may represent a calcification within the kidney. However, due to overlapping structures and a single view examination, this diagnosis cannot be made with certainty. ??If confirmation is requested, CT would be beneficial. ??There are no dilated small bowel loops to suggest obstruction. Suture material is identified within the right lateral abdomen. ??There is no evidence of free intraperitoneal air. The osseous structures appear intact. IMPRESSION: ?\ 1. ??RIGHT RENAL CALCULUS. 2. ??INCREASED DENSITY PROJECTING OVER LEFT RENAL SHADOW. ??THIS MAY REPRESENT A CALCIFICATION. ??HOWEVER, THIS DIAGNOSIS CANNOT BE MADE WITH CERTAINTY DUE TO OVERLAPPING STRUCTURES. ??CT MAY BE BENEFICIAL. 3. ??NONSPECIFIC BOWEL GAS PATTERN. ?? PHLEBOTOMY COORDINATOR: ??DM2 TRANSCRIBE DATE/TIME: ??Sep 04 2013 ??1:52P RADIOLOGIST: ??ANGELICA DRAKE M.D. ??READ ON: ??Sep 04 2013 ??1:41P ORDERING DR: EDGARD OLMSTEAD M.D. THIS DOCUMENT HAS BEEN ELECTRONICALLY SIGNED BY: ??ANGELICA DRAKE M.D. ??ON: ??Sep 04 2013 ??3:04P Requesting Fax: ??[phone] Procedure Note Provider, Rajeev, - 12/19/2016 DATE OF EXAM: Sep 04 2013 12:43PM Acc#: [id number] EDX 0217 - XR KUB DIAGNOSIS: EXTRACORPOREAL SHOCK WAVE LITH CLINICAL HISTORY: having surgery RESULT: \ EXAMINATION: SUPINE ABDOMINAL RADIOGRAPH, ONE VIEW. FINDINGS: No prior examination is available for comparison. A 5 mm rounded calcification projects over the superior aspect of the right renal pelvis. Projecting over the mid left twelfth rib, an approximately 2 cm density is noted. Additionally, this projects over the left renal shadow. This may represent a calcification within the kidney. However, due to overlapping structures and a single view examination, this diagnosis cannot be made with certainty. If confirmation is requested, CT would be beneficial. There are no dilated small bowel loops to suggest obstruction. Suture material is identified within the right lateral abdomen. There is no evidence of free intraperitoneal air. The osseous structures appear intact. IMPRESSION: \ 1. RIGHT RENAL CALCULUS. 2. INCREASED DENSITY PROJECTING OVER LEFT RENAL SHADOW. THIS MAY REPRESENT A CALCIFICATION. HOWEVER, THIS DIAGNOSIS CANNOT BE MADE WITH CERTAINTY DUE TO OVERLAPPING STRUCTURES. CT MAY BE BENEFICIAL. 3. NONSPECIFIC BOWEL GAS PATTERN. PHLEBOTOMY COORDINATOR: DMMeek TRANSCRIBE DATE/TIME: Sep 04 2013 1:52P RADIOLOGIST: ANGELICA DRAKE M.D. READ ON: Sep 04 2013 1:41P ORDERING DR: EDGARD OLMSTEAD M.D. THIS DOCUMENT HAS BEEN ELECTRONICALLY SIGNED BY: ANGELICA DRAKE M.D. ON: Sep 04 2013 3:04P Requesting us Historical Provider IMG XR PROCEDURES Final R esult * Plasma prothrombin time (PT) (09/04/2013 11:56 AM EMAIL MARKETING EXECUTIVE) Prothrombin time (PT) 13.5 11.5 - 15.5 seconds HISTORICAL RESULTS INR 1.04 0.81 - 1.21 HISTORIC AL RESULTS Plasma 09/04/2013 11:5 6 AM EMAIL MARKETING EXECUTIVE Edgard Olmstead MD LAB BLOOD ORDERABLES Final R esult Performing Organization Address [facility] de Phone Number HISTORICAL RESULTS * Blood hemoglobin, hematocrit (09/04/2013 11:56 AM EMAIL MARKETING EXECUTIVE) Hgb 15.5 14.0 - 18.0 g/dl HISTORICAL RESULTS Hct 45.1 40.0 - 54.0 % HISTORICAL RESULTS Blood specimen (specimen) 09/04/2013 11:56 AM EMAIL MARKETING EXECUTIVE Edgard Olmstead MD LAB BLOOD ORDERABLES Final R esult Performing Organization Address [facility] de Phone Number HISTORICAL RESULTS * DISCHARGE LABORATORY CUMULATIVE REPORT (09/04/2013) Narrative 09/04/2013 Ordered by an unspecified provider. Result [facility] Historical Provider LAB BLOOD ORDERABLES Keeley l Result documented in this encounter Visit Diagnoses Diagnosis Calculus of kidney Regional enteritis (CMS/HCC) (HCC) Regional enteritis of unspecified site Hydronephrosis documented in this encounter
--- OUTSIDE RECORDS SUMMARY | 2024-08-23 08:10 | XMS_ITS | Encounter Summary ---
Author Organization [facility] Address [address] [place] [address] Phone Care Team Providers Care Attic Blower Name Role Phone Jayla Phoenix MD Primary Care Provider [phone] Encounter Details Date Type Department Care Team (Late st Contact Info) Description 04/17/2018 Telephone [facility] Orthopaedic Surgery [address] [place] [address] [place] [address] Gabriel Horner MD [address] [facility] [address] [place], [place] [id number] Social History Tobacco Use Types Packs/Day Years Used Date Smoking Tobacco: Never Sex and Gender Information Value Date Recorded Sex Assigned at Not on file Legal Sex Male 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 documented in this encounter Plan of Treatment Not on file documented as of this encounter Visit Diagnoses Not on filedocumented in this encounter Care Teams Attic Blower Relationship Specialty Start Date End Date Jayla Phoenix MD [address] [place] [address] PCP - General 08/07/17 documented as of this encounter
--- OUTSIDE RECORDS SUMMARY | 2024-08-23 08:10 | XMS_ITS | Encounter Summary ---
Author Organization [facility] Address [address] [place] [address] Phone Care Team Providers Care Manager Hiv Name Role Phone Jayla Phoenix MD Primary Care Provider [phone] Encounter Details Date Type Department Care Team (Late st Contact Info) Description 01/23/2019 Orders Only [facility] Orthopaedic Surgery [address] [place] [address] 1[address] [place] [address] Yessenia Corona CMA Social History Tobacco Use Types Packs/Day Years Used Date Smoking Tobacco: Never Smokeless Tobacco: Never Alcohol Use Standard Drinks/Week Comments Yes 0 (1 standard drink = 0.6 oz pur e alcohol) Sex and Gender Information Value Date Recorded Sex Assigned at Not on file 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 traMADol (ULTRAM) 50 mg tablet TK ONE T PO Q 6 H PRF PAIN 0 01/18/2019 02/04/2019 tiZANidine (ZANAFLEX) 4 mg tablet TK 1 T PO Q 6 H for pain 0 01/18/2019 02/17/2019 mupirocin (BACTROBAN) 2 % ointment Use a q-tip and apply inside both nostrils twice daily. Begin 5 days before surgery. 09/27/2017 02/12/2019 losartan (COZAAR) 25 mg tabletIndication s:hypertension 75 mg nightly 019 ketorolac (TORADOL) 10 mg tablet TK ONE T PO Q 6 H PRN P 0 01/18/2019 02/12/2019 cyclobenzaprine (FLEXERIL) 10 mg tablet TAKE 1 TABLET 3 TIMES DAILY NEEDED. 09/27/2017 02/04/2019 added in this encounter Care Teams Manager Hiv Relationship Specialty Start Date End Date Jayla Phoenix MD [address] [place] [address] PCP - General 08/07/17 documented as of this encounter
--- OUTSIDE RECORDS SUMMARY | 2024-08-23 08:10 | XMS_ITS | Encounter Summary ---
Author Organization [facility] Healthcare Address [address] [place] [address] Care Team Providers Care Circuitry Negative Inspector Name Role Phone Jayla Phoenix MD Primary Care Provider Encounter Details Date Type Department Care Team (Latest Contact Info) Description 09/27/2017 3:44 PM SPRING TESTER - 09/27/2017 11:59 PM SPRING TESTER Hospital Encounter [facility] OP INTERIM [phone] Gabriel Horner MD [address] [id number] Discharge Disposition: Discharge to home or self care Social History Tobacco Use Types Packs/Day Years Used Date Smoking Tobacco: Never Sex and Gender Information Value Date Recorded Sex Assigned at Not on file Legal Sex Male 7:18 PM SPRING TESTER Gender Identity Male 02/04/2019 10:52 AM CDT Sexual Orientation Straight 02/04/2019 10 :52 AM CDT documented as of this encounter Medications at Time of Discharge cholestyramine-a spartame 4 gram powderIndication s:for bowel resection every morning 09/18/2010 01/21/2020 cyclobenzaprine (FLEXERIL) 10 mg tablet TAKE 1 TABLET 3 TIMES DAILY NEEDED. 09/27/2017 02/04/2019 mupirocin (BACTROBAN) 2 % ointment Use a q-tip and apply inside both nostrils twice daily. Begin 5 days before surgery. 09/27/2017 02/12/2019 documented as of this encounter Discharge Disposition Disposition Code Departure Means Destination Discharge to home or self care documented in this encounter Plan of Treatment Not on file documented as of this encounter Procedures Procedure Name Priority Date/Time Associated Diagnosis Comments EGFR STAT 09/27/2017 4:17 PM SPRING TESTER DIFFERENTIAL AUTO STAT 09/27/2017 4:1 7 PM SPRING TESTER URINALYSIS STAT 09/27/2017 4:17 PM SPRING TESTER CBC WITH AUTO DIFFERENTIAL STAT 09/27/2017 4:17 PM SPRING TESTER ABO/RH STAT 09/27/2017 4:17 PM SPRING TESTER ANTIBODY SCREEN STAT 09/27/2017 4:17 PM SPRING TESTER URINE CULTURE STAT 09/27/2017 4:17 PM SPRING TESTER BASIC METABOLIC PANEL STAT 09/27/2017 4:17 PM SPRING TESTER DISCHARGE LABORATORY CUMULATIVE REPORT 09/27/2017 12:00 AM SPRING TESTER documented in this encounter Results * Urine culture (09/27/2017 4:17 PM SPRING TESTER) Report Final Report: No growth RYAN SEN Comment:Testing performed by : [facility], [facility], [place]., [address] Urine, clean voided 09/27/2017 4:17 PM SPRING TESTER 09/27/2017 7:51 PM SPRING TESTER Narrative RYAN SEN - 09/27/2017 7:51 PM SPRING TESTER us Kely Sebastian BEEF TRIMMER LAB MICROBIOLOGY - GENERA L ORDERABLES Final Result [facility]AN CAR[facility] [address] [facility]. [place] [address] * Antibody screen (09/27/2017 4:17 PM SPRING TESTER) Juan, indirect, Gel Interpretation Negative ABSC [facility] Blood specimen (specimen) 09/27/2017 4:17 PM SPRING TESTER 09/27/2017 5:12 PM SPRING TESTER Narrative [facility] - 09/27/2017 7:57 PM SPRING TESTER Kely Sebastian BEEF TRIMMER LAB BLOOD BANK TEST ORDER DONELL Final Result Performing Organization Address [facility] de Phone Number [facility] [address] [employer]. [facility] [place] [address] * ABO/Rh (09/27/2017 4:17 PM SPRING TESTER) Pathologist [facility] ABO/Rh O Positive [facility] Blood specimen (specimen) 09/27/2017 4:17 PM SPRING TESTER 09/27/2017 5:12 PM SPRING TESTER Narrative [facility] - 09/27/2017 7:48 PM SPRING TESTER Kely Sebastian BEEF TRIMMER LAB BLOOD BANK TEST ORDER DONELL Final Result Performing Organization Address [facility] de Phone Number [facility] [address] [address] [facility] [place] [address] * eGFR (09/27/2017 4:17 PM SPRING TESTER) Pathologist [facility] eGFR >60 mL/min/1.7 3 m2 [facility] Comment: Interpretive Data Reference Interval Normal ?>/= 90 mL/min/1.73m2 Mildly decreased* ? 60 - 89 mL/min/1.73m2 Mildly to moderately decreased ?45 - 59 mL/min/1.73m2 Moderately to severely decreased ??30 - 44 mL/min/1.73m2 Severely decreased ?15 - 29 mL/min/1.73m2 Kidney Failure ?< 15 ??mL/min/1.73m2 *Relative to young adult level If -Angolan multiply value by 1.16. Estimated glomerular filtration [...] was last reviewed 2016. Blood specimen (specimen) 09/27/2017 4:17 PM SPRING TESTER 09/27/2017 5:12 PM SPRING TESTER Narrative RYAN [facility] - 09/27/2017 5:48 PM SPRING TESTER Kely Kassi Jaz BEEF TRIMMER LAB BLOOD ORDERABLES Keeley yadav Result [facility] [address] [facility]. [place] [address] * Basic metabolic panel (09/27/2017 4:17 PM SPRING TESTER) Sodium 139 135 - 145 mmol/L [facility] Potassium, pl 3.9 3.3 - 4.9 mmol/L [facility] Chloride 101 97 - 110 mmol/L [facility] CO2 24 22 - 32 mmol/L [facility] BUN 20 8 - 25 mg/dL [facility] Glucose 105 70 - 199 mg/dL [facility] Comment: Interpretive Data Fasting glucose >/= [...] Current interpretive data was last revised 2017. Creatinine 1.00 0.80 - 1.30 mg/dL [facility] Calcium 9.0 8.5 - 10.3 mg/dL [facility] Anion gap 14 2 - 15 mmol/L [facility] Blood specimen (specimen) 09/27/2017 4:17 PM SPRING TESTER 09/27/2017 5:12 PM SPRING TESTER Narrative [facility] - 09/27/2017 5:48 PM SPRING TESTER Kely Sebastian BEEF TRIMMER LAB BLOOD ORDERABLES Keeley l Result Performing Organization Address [facility] Co de Phone Number [facility] [address] [place] [address] * (ABNORMAL) Urinalysis (09/27/2017 4:17 PM SPRING TESTER) Color, ur Yellow Yellow [facility] Clarity, ur Clear Clear [facility] Specific gravity, ur 1.015 1.000 - 1.030 [facility] pH, ur 6.0 5.0 - 8.5 [facility] Protein, ur ql Negative Negative [facility] Glucose, ur ql Negative Negative [facility] Ketones, ur Negative Negative [facility] Bilirubin, ur Negative Negative [facility] Blood, ur 2+(A) Negative [facility] Urobilinogen, ur 0.2 0.2 EhrUnit/dL [facility] Nitrites, ur Negative Negative [facility] Leukocyte esterase, ur Trace(A) Negative [facility] Urine 09/27/2017 4:17 PM SPRING TESTER 09/27/2017 5:11 PM SPRING TESTER Narrative [facility] - 09/27/2017 5:41 PM SPRING TESTER Kely Sebastian BEEF TRIMMER LAB URINE ORDERABLES Keeley l Result Performing Organization Address City/[facility]/ZIP Co de Phone Number [facility] [phone] [employer] [place], [place] [id number] * Differential, auto (09/27/2017 4:17 PM SPRING TESTER) Neutrophil pct 65.0 % [facility] Imm gran pct 0.2 % [facility] Lymphocyte pct 23.8 % [facility] Monocyte pct 7.4 % [facility] Eosinophil pct 2.7 % [facility] Basophil pct 0.9 % [facility] Neutrophil abs 3.67 1.70 - 6.50 K/cumm [facility] Imm gran abs 0.01 0.00 - 0.10 K/cumm [facility] Lymphocyte abs 1.34 0.80 - 3.30 K/cumm [facility] Monocyte abs 0.42 0.20 - 0.80 K/cumm [facility] Eosinophil abs 0.15 0.00 - 0.50 K/cumm [facility] Basophil abs 0.05 0.00 - 0.10 K/cumm [facility] Blood specimen (specimen) 09/27/2017 4:17 PM SPRING TESTER 09/27/2017 5:12 PM SPRING TESTER Narrative [facility] - 09/27/2017 5:22 PM SPRING TESTER Kely Sebastian BEEF TRIMMER LAB BLOOD ORDERABLES Keeley yadav Result [facility] [address] [facility]. Department [place] [address] * CBC with auto differential (09/27/2017 4:17 PM SPRING TESTER) WBC 5.64 3.80 - 9.90 K/cumm [facility] RBC 4.46 4.30 - 5.80 M/cumm [facility] Hgb 13.5 13.0 - 17.5 g/dL [facility] Hct 39.1 38.9 - 50.3 % [facility] MCV 87.7 81.3 - 96.4 fL [facility] MCH 30.3 27.1 - 33.3 pg [facility] MCHC 34.5 32.3 - 35.7 g/dL [facility]AN CARDENASW[facility] RDW CV 12.8 11.1 - 14.9 % [facility]AN CARDENASWCH RDW SD 41.1 35.7 - 48.1 fL RYAN CARDENASWWAI Plt 263 150 - 400 K/cumm RYAN CARDENASWWAI MPV 9.8 9.1 - 12.3 fL RYAN SEN NRBC abs 0.00 0.00 - 0.01 K/cumm RYAN BILLY Blood specimen (specimen) 09/27/2017 4:17 PM SPRING TESTER 09/27/2017 5:12 PM SPRING TESTER Narrative [facility] - 09/27/2017 5:22 PM SPRING TESTER Kely Kassi Sebastian BEEF TRIMMER LAB BLOOD ORDERABLES Keeley l Result [facility] [address] [facility] Department [place] [address] * DISCHARGE LABORATORY CUMULATIVE REPORT (09/27/2017 12:00 AM SPRING TESTER) Narrative 09/27/2017 12:00 AM SPRING TESTER Ordered by an unspecified provider. Historical Provider LAB BLOOD ORDERABLES Keeley l Result documented in this encounter Visit Diagnoses Not on filedocumented in this encounter Care Teams Circuitry Negative Inspector Relationship Specialty Start Date End Date Jayla Phoenix MD [address] [place] [address] PCP - General 08/07/17 documented as of this encounter
--- OUTSIDE RECORDS SUMMARY | 2024-08-23 08:10 | XMS_ITS | Encounter Summary ---
Author Organization [facility] Healthcare Address [address] [place] [address] Care Team Providers Care Crown Buffer Name Role Phone Jayla Phoenix MD Primary Care Provider Encounter Details Date Type Department Care Team (Latest Contact Info) Description 09/10/2017 12:26 PM PULP GRINDER FEEDER - 09/10/2017 11:59 PM PULP GRINDER FEEDER Hospital Encounter [facility] OP INTERIM [phone] Benito Cheema MD [address] [address] Discharge Disposition: Discharge to home or self care Social History Tobacco Use Types Packs/Day Years Used Date Smoking Tobacco: Never Sex and Gender Information Value Date Recorded Sex Assigned at Not on file Legal Sex Male 7:18 PM PULP GRINDER FEEDER Gender Identity Male 02/04/2019 10:52 AM CDT Sexual Orientation Straight 02/04/2019 10 :52 AM CDT documented as of this encounter Medications at Time of Discharge cholestyramine-as partame 4 gram powderIndications :for bowel resection every morning 09/18/2010 01/21/2020 documented as of this encounter Discharge Disposition Disposition Code Departure Means Destination Discharge to home or self care documented in this encounter Plan of Treatment Not on file documented as of this encounter Procedures Procedure Name Priority Date/Time Associated Diagnosis Comments XR CONSULT OF OUTSIDE FILMS (PEDS ONLY) Routine 09/11/2017 11:21 PM PULP GRINDER FEEDER XR CONSULT OF OUTSIDE FILMS (PEDS ONLY) Routine 09/11/2017 11:20 PM PULP GRINDER FEEDER XR SPINE CERVICAL COMPLETE 4 OR 5 VW Routine 09/10/2017 6:40 PM PULP GRINDER FEEDER documented in this encounter Results * XR Interpretation Of Outside Films (09/11/2017 11:21 PM PULP GRINDER FEEDER) Anatomical Region Laterality Modality N/A Radiographic Tiffany ging 09/11/2017 11:2 1 PM PULP GRINDER FEEDER Narrative 09/12/2017 12:21 PM PULP GRINDER FEEDER OUTSIDE IMAGES CARPET LAYER HELPER, FINAL REPORT ACC# ??Date Time ??Exam [id number] Sep 11, 2017 17:20:00 [id number] [facility] Neuro Reference [id number] Sep 11, 2017 17:21:00 [id number] [facility] Plain Film Reference EXAMINATION: ? Images For Reference Purposes Only IMPRESSION: ? These images are for Reference purposes only and have not been reviewed by [facility] Radiology. ??There will be no report generated by a [facility] Radiologist. Requested By: BENITO CHEEMA ??M.D. ? Dictated By: ?? OUTSIDE IMAGES CARPET LAYER HELPER, ?? on Sep 12 2017 ??6:21A This document has been electronically signed by: OUTSIDE IMAGES CARPET LAYER HELPER, ??on Sep 12 2017 ??6:21A [id number] IMAGES CARPET LAYER HELPER, FINAL REPORT Attending: ??DENI, ??BENITO Requesting: ??DENI, ??BENITO Requesting Fax: ?? Attending Fax: ?? Attending ID: ??[id number] Requesting ID: ??[id number] Report To 1 ID: ? Report To 1 Name: ??, ?? Report To 1 FAX: ?? NextGen Order #: ?? Procedure Note Miscellaneous, Not In File - 09/12/2017 OUTSIDE IMAGES CARPET LAYER HELPER, FINAL REPORT ACC# Date Time Exam [id number] Sep 11, 2017 17:20:00 [id number] [facility] Neuro Reference [id number] Sep 11, 2017 17:21:00 [id number] [facility] Plain Film Reference EXAMINATION: Images For Reference Purposes Only IMPRESSION: These images are for Reference purposes only and have not been reviewed by [facility]. There will be no report generated by a [facility] Radiologist. Requested By: BENITO CHEEMA M.D. Dictated By: OUTSIDE IMAGES CARPET LAYER HELPER, on Sep 12 2017 6:21A This document has been electronically signed by: OUTSIDE IMAGES CARPET LAYER HELPER, on Sep 12 2017 6:21A [id number] IMAGES CARPET LAYER HELPER, FINAL REPORT Attending: BENITO CHEEMA Requesting: BENITO CHEEMA Requesting Fax: Attending Fax: Attending ID: [id number] Requesting ID: [id number] Report To 1 ID: Report To 1 Name: , Report To 1 FAX: NextGen Order #: Benito Cheema MD IMG XR PROCEDURES Final Result * XR Interpretation Of Outside Films (09/11/2017 11:20 PM PULP GRINDER FEEDER) Anatomical Region Laterality Modality N/A Radiographic Tiffany ging 09/11/2017 11:2 0 PM PULP GRINDER FEEDER Narrative 09/12/2017 12:21 PM PULP GRINDER FEEDER OUTSIDE IMAGES CARPET LAYER HELPER, FINAL REPORT ACC# ??Date Time ??Exam [id number] Sep 11, 2017 17:20:00 [id number] [facility] Neuro Reference [id number] Sep 11, 2017 17:21:00 [id number] [facility] Plain Film Reference EXAMINATION: ? Images For Reference Purposes Only IMPRESSION: ? These images are for Reference purposes only and have not been reviewed by [facility]. ??There will be no report generated by a [facility] Radiologist. Requested By: BENITO CHEEMA ??Tony ? Dictated By: ?? OUTSIDE IMAGES CARPET LAYER HELPER, ?? on Sep 12 2017 ??6:21A This document has been electronically signed by: OUTSIDE IMAGES CARPET LAYER HELPER, ??on Sep 12 2017 ??6:21A [id number] IMAGES CARPET LAYER HELPER, FINAL REPORT Attending: ??DENI, ?SHEELA Requesting: ??DENI, ??BENITO Requesting Fax: ?? Attending Fax: ?? Attending ID: ??[id number] Requesting ID: ??[id number] Report To 1 ID: ? Report To 1 Name: ??, ?? Report To 1 FAX: ?? NextGen Order #: ?? Procedure Note Miscellaneous, Not In File - 09/12/2017 OUTSIDE IMAGES CARPET LAYER HELPER, FINAL REPORT ACC# Date Time Exam [id number] Sep 11, 2017 17:20:00 [id number] [facility] Neuro Reference [id number] Sep 11, 2017 17:21:00 [id number] [facility] Plain Film Reference EXAMINATION: Images For Reference Purposes Only IMPRESSION: These images are for Reference purposes only and have not been reviewed by [facility]iology. There will be no report generated by a [facility] Radiologist. Requested By: BENITO CHEEMA M.D. Dictated By: OUTSIDE IMAGES CARPET LAYER HELPER, on Sep 12 2017 6:21A This document has been electronically signed by: OUTSIDE IMAGES CARPET LAYER HELPER, on Sep 12 2017 6:21A [id number] IMAGES CARPET LAYER HELPER, FINAL REPORT Attending: BENITO CHEEMA Requesting: BENITO CHEEMA Requesting Fax: Attending Fax: Attending ID: [id number] Requesting ID: [id number] Report To 1 ID: Report To 1 Name: , Report To 1 FAX: NextGen Order #: Benito Cheema MD IMG XR PROCEDURES Final Result * XR Spine Cervical Complete 4 or 5 Views (09/10/2017 6:40 PM PULP GRINDER FEEDER) Anatomical Region Laterality Modality Spine N/A Radiographic Tiffany ging 09/10/2017 6:40 PM PULP GRINDER FEEDER Narrative 09/10/2017 6:48 PM PULP GRINDER FEEDER BENITO ARMSTRONG M.D. FINAL REPORT ACC# ??Date Time ??Exam [id number] Sep 10, 2017 12:40:00 [id number] Spine Cervical 4 or 5 vws EXAMINATION: ?? 1. ??Cervical spine 4 or 5 views HISTORY: ??Cervical spondylosis FINDINGS: 4 views submitted without comparison. There is mild levocurvature of the cervicothoracic junction. ??There is mild kyphosis of the cervical spine. ??There is mild C5-C6 degenerative disc disease with posterior projecting osteophytes likely resulting in mild osseous central canal stenosis. Flexion-extension views demonstrate no abnormal translation. ??There is bilateral C5-C6 and left-sided C4-C5 uncovertebral hypertrophy. IMPRESSION: ??1. ??Mild C5-C6 degenerative disc disease with posterior projecting osteophytes likely resulting in mild osseous central canal stenosis. 2. ??Mild cervical kyphosis centered at C5-C6 with bilateral C5-C6 uncovertebral hypertrophy. Electronically signed by: Benito Armstrong M.D. Requested By: BENITO CHEEMA M.D. Dictated By: ?? BENITO ARMSTRONG M.D. ??on Sep 10 2017 12:46P This document has been electronically signed by: BENITO ARMSTRONG M.D. on Sep 10 2017 12:46P [id number] ARMSTRONG M.D. FINAL REPORT Attending: ??DENI, ??BENITO Requesting: ??DENI, ??BENITO Requesting Fax: ?? Attending Fax: ?? Attending ID: ??[id number] Requesting ID: ??[id number] Report To 1 ID: ??[id number] ? Report To 1 Name: ??, ?? Report To 1 FAX: ?? NextGen Order #: ?? Procedure Note Miscellaneous, Not In File - 09/10/2017 BENITO ARMSTRONG M.D. FINAL REPORT ACC# Date Time Exam [id number] Sep 10, 2017 12:40:00 [id number] Spine Cervical 4 or 5 vws EXAMINATION: 1. Cervical spine 4 or 5 views HISTORY: Cervical spondylosis FINDINGS: 4 views submitted without comparison. There is mild levocurvature of the cervicothoracic junction. There is mild kyphosis of the cervical spine. There is mild C5-C6 degenerative disc disease with posterior projecting osteophytes likely resulting in mild osseous central canal stenosis. Flexion-extension views demonstrate no abnormal translation. There is bilateral C5-C6 and left-sided C4-C5 uncovertebral hypertrophy. IMPRESSION: 1. Mild C5-C6 degenerative disc disease with posterior projecting osteophytes likely resulting in mild osseous central canal stenosis. 2. Mild cervical kyphosis centered at C5-C6 with bilateral C5-C6 uncovertebral hypertrophy. Electronically signed by: Benito Armstrong M.D. Requested By: BENITO CHEEMA M.D. Dictated By: BENITO ARMSTRONG M.D. on Sep 10 2017 12:46P This document has been electronically signed by: BENITO ARMSTRONG M.D. on Sep 10 2017 12:46P [id number] ARMSTRONG M.D. FINAL REPORT Attending: BENITO CHEEMA Requesting: BENITO CHEEMA Requesting Fax: Attending Fax: Attending ID: [id number] Requesting ID: [id number] Report To 1 ID: [id number] Report To 1 Name: , Report To 1 FAX: NextGen Order #: Benito Cheema MD IMG XR PROCEDURES Final Result documented in this encounter Visit Diagnoses Not on filedocumented in this encounter Care Teams Crown Buffer Relationship Specialty Start Date End Date Jayla Phoenix MD [address] [place] [address] PCP - General 08/07/17 documented as of this encounter
--- OUTSIDE RECORDS SUMMARY | 2024-08-23 08:10 | XMS_ITS | Encounter Summary ---
Author Organization [facility] Address [address] [place] [address] Phone Care Team Providers Care Practice Physician Name Role Phone Jayla Phoenix MD Primary Care Provider [phone] Encounter Details Date Type Department Care Team (Late st Contact Info) Description 01/23/2019 Telephone [facility] Orthopaedic Surgery [address] [facility] 1st Floor [address] [place] [address] Antonieta Sadler, [facility] [address] [facility] [address] [place], [place] [id number] Social History Tobacco Use Types Packs/Day Years Used Date Smoking Tobacco: Never Smokeless Tobacco: Never Alcohol Use Standard Drinks/Week Comments Yes 0 (1 standard drink = 0.6 oz pur e alcohol) Sex and Gender Information Value Date Recorded Sex Assigned at Not on file Legal Sex Male 7:18 PM WHIZZER Gender Identity Male 02/04/2019 10:52 AM CDT Sexual Orientation Straight 02/04/2019 10 :52 AM CDT documented as of this encounter Miscellaneous Notes * Telephone Encounter - Yessenia Corona MA - 01/23/2019 10:26 AM CDT PT HAS MRI APPT ON 01-28-19 6:45AM ARRIVAL documented in this encounter Plan of Treatment Not on file documented as of this encounter Visit Diagnoses Not on filedocumented in this encounter Care Teams Practice Physician Relationship Specialty Start Date End Date Jayla Phoenix MD [address] [place] [address] PCP - General 08/07/17 documented as of this encounter
--- OUTSIDE RECORDS SUMMARY | 2024-08-23 08:10 | XMS_ITS | Encounter Summary ---
Author Organization [facility] Address [address] [place] [address] Phone Care Team Providers Care Lan Manager Name Role Phone Jayla Phoenix MD Primary Care Provider [phone] Reason for Referral * Diagnostic Imaging (Routine) - Closed Specialty Diagnoses / Procedures Referred By Contac t Referred To Contact Diagnoses Cervical radiculopathy Fusion of spine of cervical region Procedures XR Spine Cervical W Flexion And Extension 6 or More Views Gabriel Horner MD Phone: tel: fax: [facility] [address] Referral ID Status Reason Start Date Expiration Date Visits Re quested Visits Authorized [id number] Closed 01/22/2019 08/02/2020 1 1 Encounter Details Date Type Department Care Team (Late st Contact Info) Description 01/22/2019 Orders Only [facility] Orthopaedic Surgery [address] [facility] [address] [facility] 6th [place] [address] [place] [address] Gabriel Horner MD [address] [facility] [address] [place], [place] [id number] Cervical radiculopathy (Primary Dx); Fusion of spine of cervical region Social History Tobacco Use Types Packs/Day Years Used Date Smoking Tobacco: Never Smokeless Tobacco: Never Alcohol Use Standard Drinks/Week Comments Yes 0 (1 standard drink = 0.6 oz pur e alcohol) Sex and Gender Information Value Date Recorded Sex Assigned at Not on file Legal Sex Male 7:18 PM [employer] Gender Identity Male 02/04/2019 10:52 AM CDT [...] Electronically signed by: Mamadou Ni M.D. Gabriel Horner MD IMG XR PROCEDURES Final Re sult documented in this encounter Visit Diagnoses Diagnosis Cervical radiculopathy- Primary Brachial neuritis or radiculitis nos Fusion of spine of cervical region Cervical radiculopathy Brachial neuritis or radiculitis nos Fusion of spine of cervical region documented in this encounter Care Teams Lan Manager Relationship Specialty Start Date End Date Jayla Phoenix MD [address] [place], [place] [id number] PCP - General 08/07/17 documented as of this encounter
--- OUTSIDE RECORDS SUMMARY | 2024-08-23 08:10 | XMS_ITS | Encounter Summary ---
Author Organization [facility] Address [address] [place] [address] Phone Care Team Providers Care Scraper Operator Name Role Phone Jayla Phoenix MD Primary Care Provider [phone] Reason for Referral * Diagnostic Imaging (Routine) - Closed Specialty Diagnoses / Procedures Referred By Contac t Referred To Contact Diagnoses Cervical fusion syndrome Procedures XR Spine Cervical W Flexion And Extension 6 or More Views Gabriel Horner MD Phone: tel: fax: [facility] Referral ID Status Reason Start Date Expiration Date Visits Re quested Visits Authorized [id number] Closed 07/09/2018 01/18/2020 1 1 TRANSPORTER Reason for Visit * Reason Comments Return Patient Encounter Details Date Type Department Care Team (Late st Contact Info) Description 07/16/2018 1:40 PM ED TRANSPORTER Office Visit [facility] [address] 6th [place] [address] [place] [address] Gabriel Horner MD [address] [address] Cervical fusion syndrome (Primary Dx); Cervical radiculopathy Social History Tobacco Use Types Packs/Day Years Used Date Smoking Tobacco: Never Smokeless Tobacco: Never Alcohol Use Standard Drinks/Week Comments Yes 0 (1 standard drink = 0.6 oz pur e alcohol) Sex and Gender Information Value Date Recorded Sex Assigned at Not on file Legal Sex Male 7:18 PM ED TRANSPORTER Gender Identity Male 02/04/2019 10:52 AM CDT Sexual Orientation Straight 02/04/2019 10 :52 AM CDT documented as of this encounter Progress Notes * Gabriel Horner MD - 07/16/2018 1:40 PM CST ESTABLISHED PATIENT VISIT INTERIM HISTORY: Kristian Vasques is a 48 y.o. male who presents to the office today for follow- up. Nine month postop, C5-6 anterior cervical discectomy and fusion. Doing well. Neck disability index score 2. Neck pain 0/10. Arm pain 0/10. Past medical history and review of systems are unchanged from previous visit. PHYSICAL EXAM: On examination today, the patient is awake, alert, and oriented x3. Healed incision. Painless cervical range of motion. 5/5 strength REVIEW OF X-RAYS/STUDIES: Throughout. Cervical spine x-rays obtained and reviewed today show C5-6 anterior cervical discectomy and fusion with no movement through the level on flexion and extension, and to my interpretation good incorporation of the graft. IMPRESSION/DIAGNOSIS: Cervical radiculopathy status post C5-6 anterior cervical discectomy and fusion TREATMENT PLAN: 1. He is doing well. I am releasing him at this point. I think the level has fused. Gabriel Horner MD This note was dictated using [email or web address] software. This note was not read in detail; therefore, variances and inaccuracies may occur. TRANSPORTER documented in this encounter Plan of Treatment Not on file documented as of this encounter Results * XR Spine Cervical W Flexion And Extension 6 or More Views (07/16/2018 1:51 PM ED TRANSPORTER) Anatomical Region Laterality Modality Spine N/A Computed Radiogr aphy 07/16/2018 2:54 PM ED TRANSPORTER Impressions 07/16/2018 3:18 PM ED TRANSPORTER 1. ??Unchanged discectomy and anterior instrumented fusion of C5-C6, without motion at the fused segment. 2. ??Mild degenerative disc disease from C6-T1 and mild bilateral neuroforaminal narrowing at C5-C6. Dictated by: Johanne Adan M.D. Electronically signed by: Michael Lopez M.D. Narrative 07/16/2018 3:18 PM ED TRANSPORTER EXAMINATION: Cervical spine with flexion and extension 6 or more views HISTORY: Follow-up cervical spinal fusion FINDINGS: 6 views of the cervical spine are submitted with comparison to prior radiographs dated 11/20/2017. There are postoperative changes of discectomy and anterior instrumented spinal fusion at C5-C6. ??On flexion and extension views, there is no evidence of motion at the fused levels. ?? The cervical spine is mildly kyphotic, with apex at C5-C6. ??Mild bilateral uncovertebral hypertrophy at C5-C6 contributes to mild bilateral neuroforaminal narrowing. ??Vertebral body heights are normal. ??There is mild C6-C7 and C7-T1 degenerative disc disease. Prevertebral soft tissues are normal. Procedure Note Michael Lopez MD - 07/16/2018 EXAMINATION: Cervical spine with flexion and extension 6 or more views HISTORY: Follow-up cervical spinal fusion FINDINGS: 6 views of the cervical spine are submitted with comparison to prior radiographs dated 11/20/2017. There are postoperative changes of discectomy and anterior instrumented spinal fusion at C5-C6. On flexion and extension views, there is no evidence of motion at the fused levels. The cervical spine is mildly kyphotic, with apex at C5-C6. Mild bilateral uncovertebral hypertrophy at C5-C6 contributes to mild bilateral neuroforaminal narrowing. Vertebral body heights are normal. There is mild C6-C7 and C7-T1 degenerative disc disease. Prevertebral soft tissues are normal. IMPRESSION: 1. Unchanged discectomy and anterior instrumented fusion of C5-C6, without motion at the fused segment. 2. Mild degenerative disc disease from C6-T1 and mild bilateral neuroforaminal narrowing at C5-C6. Dictated by: Johanne Adan M.D. Electronically signed by: Michael Lopez M.D. Gabriel Horner MD IMG XR PROCEDURES Final Re sult documented in this encounter Visit Diagnoses Diagnosis Cervical fusion syndrome- Primary Klippel-Feil syndrome Cervical radiculopathy Brachial neuritis or radiculitis nos Cervical fusion syndrome Klippel-Feil syndrome documented in this encounter Care Teams Scraper Operator Relationship Specialty Start Date End Date Jayla Phoenix MD [address] [place], [place] [id number] PCP - General 08/07/17 documented as of this encounter
--- OUTSIDE RECORDS SUMMARY | 2024-08-23 08:10 | XMS_ITS | Encounter Summary ---
Author Organization [facility] Address [address] [place] [address] Care Team Providers Care Convict Guard Name Role Phone Jayla Phoenix MD Primary Care Provider [phone] Encounter Details Date Type Department Care Team (Latest Contact Info) Description 10/07/2017 5:26 AM SUPPORT SERVICES SPECIALIST - 10/07/2017 3:00 PM [facility] Hospital Encounter [facility] OP INTERIM [phone] Gabriel Hensley MD [address] [address] Discharge Disposition: Discharge to home or self care Social History Tobacco Use Types Packs/Day Years Used Date Smoking Tobacco: Never Sex and Gender Information Value Date Recorded Sex Assigned at Not on file Legal Sex Male 7:18 PM SUPPORT SERVICES SPECIALIST Gender Identity Male 02/04/2019 10:52 AM [...] documented in this encounter Miscellaneous Notes * Op Note - Provider, MD Rajeev - 10/07/2017 12:00 AM CST [facility] Patient: ZOEY JOSEPH Account: [id number] Room No: 1500-B : 1970 Proc. Date: 10/07/2017 Surgeon: GABRIEL HENSLEY MD Admit Date: 10/07/2017 Disch. Date: 10/07/2017 Patient Type: SDS OPERATIVE REPORT SURGEON Gabriel Hensley MD MUSIC RESEARCHER Antonieta Sadler C.N.S. ANESTHESIA General endotracheal. PREOPERATIVE DIAGNOSIS C5-C6 disc herniation with myeloradiculopathy. POSTOPERATIVE DIAGNOSIS C5-C6 disc herniation with myeloradiculopathy. PROCEDURE 1. C5-C6 anterior diskectomy and anterior cervical fusion with a corticocancellous structural graft, 8 mm height. 2. C5-C6 anterior cervical instrumentation with Biomet MaxAn anterior cervical plate. 3. Use of intraoperative microscope with microsurgical techniques for the C5-6 anterior cervical diskectomy, fusion, with instrumentation. INDICATIONS Mr. Wellington is a 47-year-old male with symptoms of cervical myeloradiculopathy. He had global weakness of his right arm with radicular arm pain in addition to recent imbalance with walking. Imaging revealed a large central disc herniation with foraminal extension at C5-6 along with cervical cord myelomalacia. Due to his mild radicular symptoms I recommended surgery. The risks and benefits of the ACDF were discussed with him and consent was obtained. FINDINGS Central disc herniation with foraminal disc extension on the right at C5-6. DESCRIPTION The patient was brought into the operating room. Surgical briefing was performed. He was placed under anesthesia and intubated. He was transferred onto the operating room table. Preoperative antibiotics were given. IV Decadron was given. Neural monitoring leads were placed for motor evoked potentials, somatosensory evoked potentials, and electromyography. He was appropriately positioned and secured to the operating room table. A lateral x-ray was utilized to localize our incision at the C5-6 level. His anterior cervical spine was then prepped and draped in the usual fashion. A surgical time-out was performed. The skin was infiltrated with 0.25% Marcaine with epinephrine. Next, a 15 scalpel was used to make a left-sided incision. The platysma was incised and elevated. Blunt dissection through the Zuniga- Santiago interval was performed down to the anterior cervical spine. I palpated the anterior osteophyte at C5-6. A Burlisher clamp was placed into the C5-6 disc space and a lateral C-spine x-ray was taken to confirm we were at the C5-6 level. The disc was marked with electrocautery. At this point, I brought in the microscope and used its assistance with microsurgical technique for the rest of the surgery. Using bipolar cautery I elevated the longus colli at C5-6. A self-retaining retractor was placed. The anterior osteophytes were removed with a rongeur. A Nottingham pin was placed into the C5 and C6 vertebral segments. #15 scalpel was used to incise the disc. A 4B curette was used to remove the superior disc and cartilage off the endplates from uncinate to uncinate. A high-speed drill was then used to remove the superior aspect of the C5 endplate to get access to the posterior disc space. We then used the high-speed drill to remove the posterior disc. There was a central tear in the PLL. I used a pituitary to remove the central disc herniation. We then removed further disc herniations from the right neuroforamen superficially. I then thinned the left-sided disc down to the posterior longitudinal ligament using a #1B thread to separate the posterior longitudinal ligament from the underlying dura on the left side. This gave good visualization of the dura. I then used a nerve hook to gently sweep underneath the disc herniation centrally and between the thecal sac. We then used a Kerrison #2 to remove the PLL and the extruded disc fragments from left to right. There were several large pieces on the right side of the spinal cord that had extruded posterior to the PLL. We followed the dura from [id number]. We removed all of the central disc herniation. On the right side in the neuroforamen I used 2B curette and a nerve hook to gently sweep within the neuroforamen. We were able to remove several extruded disc fragments from within the neuroforamen. I could pass a nerve hook out easily through the right neural foramen once these disc herniations were removed. At this point, that the decompression was finished. We then finished the decortication of the endplates of C5 and C6. We used trial spacers to get graft height. We then used an 8 mm height corticocancellous graft for fusion. This graft was placed into the disc space. Once distraction was removed the graft was under good compression. Nottingham pins were removed. We then placed a separate Biomet MaxAn anterior cervical plate that spanned the C5 and C6 levels. This was secured with 4.0 x 18 mm fixed screws into C5 and 4.0 x 18 mm variable angle screws into C6. The wound was copiously irrigated with normal saline. AP and lateral x-ray was obtained and I was happy with the positioning of the instrumentation and graft. Surgical field was dry and a drain was not necessary. The microscope was removed. The platysma was closed with 3-0 Monocryl. The skin with 5-0 Monocryl and Steri-Strips. A 4 x 4 and Tegaderm was placed in the incision. Neural monitoring including motor evoked potentials, somatosensory evoked potentials and EMG were stable and unchanged during the entire operation. The patient was awoken from anesthesia, extubated, and taken to the recovery room. ESTIMATED BLOOD LOSS 25 mL. BLOOD REPLACEMENT None. SPECIMENS None SPONGE, INSTRUMENT AND NEEDLE COUNTS Correct x2 at the end the case. CONDITION Stable to recovery room. ATTESTATION I, Gabriel Hensley, the attending physician, was scrubbed and present from skin incision through skin closure and directly participated in C5-6 anterior cervical diskectomy, fusion, and instrumentation. I was assisted by Antonieta Sadler as a qualified resident was not available at the surgery and Antonieta Sadler was scrubbed and present from skin to skin closure and directly participated in all critical portions of the surgery including the C5-6 anterior cervical diskectomy, and fusion with instrumentation. Electronically Authenticated by: Gabriel Hensley MD On 10/09/2017 08:51 AM SUPPORT SERVICES SPECIALIST MD CAM LENZ/yuliya TD: 10/07/2017 15:11 CC: Ortho Billing * Admission Note - Miscellaneous, Not In File - 10/06/2017 6:00 AM CST [facility] Patient: ZOEY JOSEPH Account: [id number] Room No: : 1970 Service Date: 10/06/2017 Attending: GABRIEL HENSLEY MD Admit Date: 10/07/2017 Dictating: Levon LOWE Disch. Date: 10/07/2017 Patient Type: SDS ADMISSION NOTE HISTORY OF PRESENT ILLNESS Mr. Joseph presented to the office with complaints of progressive worsening right arm pain as well as upper extremity clumsiness and difficulty with gait. He notes pain in the right side of his neck which radiates into the base of the scapula and down the lateral aspect of his arm over his deltoid. Occasionally he notes numbness which radiates down into his hand in a C6 distribution. ALLERGIES CONTRAST DYE. CURRENT MEDICATIONS 1. Dexamethasone. 2. Tramadol. 3. Toradol. 4. Cyclobenzaprine. PAST MEDICAL HISTORY 1. Hypertension. 2. Crohn's disease. PAST SURGICAL HISTORY He has had colon surgery for his Crohn's disease. 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 He is with 2 children. He does not smoke and rarely uses alcohol. PHYSICAL EXAMINATION General: This is a pleasant gentleman who stands 6 feet 2 inches tall, weighs 192 pounds. HEENT: Within normal limits. Cardiovascular: He has a regular rate and rhythm. No ectopy or murmur noted. Chest: Lungs are clear to auscultation bilaterally. Chest expansion is symmetrical. Respirations are even and nonlabored. Abdomen: Bowel sounds are present in all 4 quadrants. Abdomen is soft, nontender, nondistended. Extremities: Pulses are palpable in both wrists and both feet. No cyanosis, clubbing or edema noted. Neurologic: Motor power is 4+/5 in the right deltoid, biceps, triceps, wrist flexors, and extensors as well as intrinsics. Strength is 5/5 in all muscle groups on the left. Deep tendon reflexes are 2+ at the biceps and brachioradialis reflexes bilaterally. He has hyperreflexic patella and Achilles reflexes bilaterally. He has positive Marine signs bilaterally and positive Babinski signs. There is approximately 10 beats of clonus on the left and 6 beats on the right. He has a positive Romberg's test. He is unable to complete tandem gait without loss of balance. RADIOGRAPHIC Review of the cervical spine x-rays demonstrates significant degeneration of the C5-C6 disc. There is some mild kyphosis noted. Review of an MRI of the cervical spine shows a disc herniation at C5-C6, which produces central canal stenosis. ASSESSMENT AND PLAN Mr. Joseph has progressive myeloradiculopathy secondary to the stenosis seen on his MRI scan. I have recommended a C5-C6 anterior cervical diskectomy and fusion. I have discussed the risks, benefits, and alternatives. I have discussed expected hospitalization recovery time. He understands all of these matters and has elected to proceed with surgery. Electronically Authenticated by: BRITTON Shen On 10/08/2017 08:31 AM SUPPORT SERVICES SPECIALIST Electronically Authenticated by: BRITTON Shen On 10/14/2017 08:38 AM SUPPORT SERVICES SPECIALIST Electronically Authenticated by: BRITTON Shen On 10/24/2017 12:21 PM SUPPORT SERVICES SPECIALIST Electronically Authenticated by: Gabriel Hensley MD On 10/25/2017 09:31 AM SUPPORT SERVICES SPECIALIST GABRIEL HENSLEY MD Dictated by: Jhon LOWENJohannSJohann [facility] TD: 10/06/2017 18:17 ORT SERVICES SPECIALIST documented in this encounter Plan of Treatment Not on file documented as of this encounter Procedures Procedure Name Priority Date/Time Associated Diagnosis Comments XR CHEST 1 VIEW Routine 10/07/2017 4:52 PM SUPPORT SERVICES SPECIALIST B ABO / RH CONFIRMATION TESTING Routine 10/07/2017 7:00 AM SUPPORT SERVICES SPECIALIST documented in this encounter Results * XR Chest 1 Vw (10/07/2017 4:52 PM SUPPORT SERVICES SPECIALIST) Anatomical Region Laterality Modality Body, Chest N/A Radiographic Tiffany ging 10/07/2017 4:52 PM SUPPORT SERVICES SPECIALIST Narrative 10/07/2017 5:27 PM SUPPORT SERVICES SPECIALIST MAGDA BRUNNER M.D. MARY SHER M.D. FINAL REPORT The radiology attending physician has personally reviewed this study, and has reviewed and/or edited this written report and agrees with it. ACC# ??Date Time ??Exam [id number] Oct 07, 2017 10:52:00 [id number] Chest 1 view Frontal EXAMINATION: ??1 view chest radiograph IMPRESSION: ??Single view of the chest is submitted for interpretation. No prior studies are available for comparison. ??The lungs are clear without focal consolidation. ??No pleural effusion or pneumothorax. The cardiomediastinal silhouette is within normal limits. ??No radiopaque foreign body is identified. The above findings were discussed with Dr. Lund by Dr. Sher at 11:08 AM on 10/07/2017. Electronically signed by: Magda Brunner M.D. Requested By: GABRIEL HENSLEY ??Tony ? Dictated By: ?? MARY SHER M.D. ??on Oct 07 2017 11:09A This document has been electronically signed by: MAGDA BRUNNER M.D. on Oct 07 2017 11:25A [id number] ALVARADO M.D. FINAL REPORT The radiology attending physician has personally reviewed this study, and has reviewed and/or edited this written report and agrees with it. Attending: ??AYDEN, ??GABRIEL Requesting: ??AYDEN, ??GABRIEL Requesting Fax: ?? Attending Fax: ?? Attending ID: ??[id number] Requesting ID: ??[id number] Report To 1 ID: ??[id number] ? Report To 1 Name: ??, ?? Report To 1 FAX: ?? NextGen Order #: ?? Procedure Note Miscellaneous, Not In File - 10/07/2017 MAGDA BRUNNER M.D. MARY SHER M.D. FINAL REPORT The radiology attending physician has personally reviewed this study, and has reviewed and/or edited this written report and agrees with it. ACC# Date Time Exam [id number] Oct 07, 2017 10:52:00 [id number] Chest 1 view Frontal EXAMINATION: 1 view chest radiograph IMPRESSION: Single view of the chest is submitted for interpretation. No prior studies are available for comparison. The lungs are clear without focal consolidation. No pleural effusion or pneumothorax. The cardiomediastinal silhouette is within normal limits. No radiopaque foreign body is identified. The above findings were discussed with Dr. Lund by Dr. Sher at 11:08 AM on 10/07/2017. Electronically signed by: Magda Brunner M.D. Requested By: GABRIEL HENSLEY M.D. Dictated By: MARY SHER M.D. on Oct 07 2017 11:09A This document has been electronically signed by: MAGDA BRUNNER M.D. on Oct 07 2017 11:25A [id number] ALVARADO M.D. FINAL REPORT The radiology attending physician has personally reviewed this study, and has reviewed and/or edited this written report and agrees with it. Attending: GABRIEL HENSLEY Requesting: GABRIEL HENSLEY Requesting Fax: Attending Fax: Attending ID: [id number] Requesting ID: [id number] Report To 1 ID: [id number] Report To 1 Name: , Report To 1 FAX: NextGen Order #: Gabriel Hensley MD IMG XR PROCEDURES Final Re sult * B ABO / Rh Confirmation Testing (10/07/2017 7:00 AM SUPPORT SERVICES SPECIALIST) Blood specimen (specimen) 10/07/2017 7:00 AM SUPPORT SERVICES SPECIALIST 10/07/2017 7:21 AM SUPPORT SERVICES SPECIALIST Narrative [facility] - 10/07/2017 7:47 AM SUPPORT SERVICES SPECIALIST Gabriel Hensley MD LAB BLOOD ORDERABLES Final Result [facility] [id number] [facility]. Department [place] [address] documented in this encounter Visit Diagnoses Not on filedocumented in this encounter Care Teams Convict Guard Relationship Specialty Start Date End Date Jayla Phoenix MD [address] [place], [place] [id number] PCP - General 08/07/17 documented as of this encounter
--- OUTSIDE RECORDS SUMMARY | 2024-08-23 08:10 | XMS_ITS | Encounter Summary ---
Author Organization [facility] Healthcare Address [address] [place] [address] Care Team Providers Care Bridge Inspector Name Role Phone Jayla Phoenix MD Primary Care Provider [phone] Encounter Details Date Type Department Care Team (Latest Contact Info) Description 11/20/2017 2:17 PM CDT - 11/20/2017 11:59 PM CDT Hospital Encounter [facility] [phone] Gabriel Horner MD [address] [address] Discharge Disposition: Discharge to home or self care Social History Tobacco Use Types Packs/Day Years Used Date Smoking Tobacco: Never Sex and Gender Information Value Date Recorded Sex Assigned at Not on file Legal Sex Male 7:18 PM EXTRUSION PRESS OPERATOR Gender Identity Male 02/04/2019 10:52 AM [...] XR SPINE CERVICAL 2 OR 3 VIEWS Routine 11/20/2017 7:25 PM CDT documented in this encounter Results * XR Spine Cervical 2 or 3 Views (11/20/2017 7:25 PM CDT) Anatomical Region Laterality Modality Spine N/A Radiographic Tiffany ging 11/20/2017 7:25 PM CDT Narrative 11/20/2017 7:40 PM CDT JAMAAL GALICIA M.D. FINAL REPORT ACC# ??Date Time ??Exam [id number] Nov 20, 2017 14:25:00 [id number] Spine Cerv 3views or less EXAMINATION: ??Cervical spine 3 views or less HISTORY: ??Cervical spondylosis FINDINGS: A 2 view examination of the cervical spine is compared to prior examination dated 09/10/2017. ??There is a new C5-C6 discectomy and anterior instrumented fusion. ??No osseous central canal narrowing. ??There is mild cervical kyphosis. ??Vertebral body heights and nonfused disc spaces are normal. IMPRESSION: ??1. ??New C5-C6 discectomy and anterior instrumented fusion. Electronically signed by: Jamaal Galicia M.D. Requested By: GABRIEL HORNER M.D. Dictated By: ?? JAMAAL GALICIA M.D. ??on Nov ??2017 ??2:37P This document has been electronically signed by: JAMAAL GALICIA M.D. on Nov ??2017 ??2:37P [id number] GALICIA M.D. FINAL REPORT Attending: ??AYDEN, ??GABRIEL Requesting: ??AYDEN, ??GABRIEL Requesting Fax: ?? Attending Fax: ?? Attending ID: ??[id number] Requesting ID: ??[id number] Report To 1 ID: ??[id number] ? Report To 1 Name: ??, ?? Report To 1 FAX: ?? NextGen Order #: ?? Procedure Note Miscellaneous, Not In File - 11/20/2017 JAMAAL GALICIA M.D. FINAL REPORT ACC# Date Time Exam [id number] Nov 20, 2017 14:25:00 [id number] Spine Cerv 3views or less EXAMINATION: Cervical spine 3 views or less HISTORY: Cervical spondylosis FINDINGS: A 2 view examination of the cervical spine is compared to prior examination dated 09/10/2017. There is a new C5-C6 discectomy and anterior instrumented fusion. No osseous central canal narrowing. There is mild cervical kyphosis. Vertebral body heights and nonfused disc spaces are normal. IMPRESSION: 1. New C5-C6 discectomy and anterior instrumented fusion. Electronically signed by: Jamaal Galicia M.D. Requested By: GABRIEL HORNER M.D. Dictated By: JAMAAL GALICIA M.D. on Nov 20 2017 2:37P This document has been electronically signed by: JAMAAL GALICIA M.D. on Nov 20 2017 2:37P [id number] GALICIA M.D. FINAL REPORT Attending: GABRIEL HORNER Requesting: GABRIEL HORNER Requesting Fax: Attending Fax: Attending ID: [id number] Requesting ID: [id number] Report To 1 ID: [id number] Report To 1 Name: , Report To 1 FAX: NextGen Order #: Gabriel Horner MD IMG XR PROCEDURES Final Re sult documented in this encounter Visit Diagnoses Not on filedocumented in this encounter Care Teams Bridge Inspector Relationship Specialty Start Date End Date Jayla Phoenix MD [address] [id number] PCP - General 08/07/17 documented as of this encounter
--- OUTSIDE RECORDS SUMMARY | 2024-08-23 08:10 | XMS_ITS | Encounter Summary ---
Author Organization [facility] Address [address] [place] [address] Phone Care Team Providers Care Furniture Sprayer Name Role Phone Jayla Phoenix MD Primary Care Provider + [phone] Encounter Details Date Type Department Care Team (Late st Contact Info) Description 02/21/2018 Telephone [facility] Orthopaedic Surgery [address] [facility] Advanced Medicine 6th [place] [address] [place] [address] Gabriel Horner MD [address] [facility] [address] [place], [place] [id number] Social History Tobacco Use Types Packs/Day Years Used Date Smoking Tobacco: Never Sex and Gender Information Value Date Recorded Sex Assigned at Not on file Legal Sex Male 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 I rescheduled his appt to 05/02/18 @ 1000 am @ [address] per 's request. This was changed in the schedule. documented in this encounter Plan of Treatment Not on file documented as of this encounter Visit Diagnoses Not on filedocumented in this encounter Care Teams Furniture Sprayer Relationship Specialty Start Date End Date Jayla Phoenix MD [address] [place] [address] PCP - General 08/07/17 documented as of this encounter
--- OUTSIDE RECORDS SUMMARY | 2024-08-23 08:10 | XMS_ITS | Encounter Summary ---
Author Organization [facility] Healthcare Address [address] [place] [address] Care Team Providers Care Warehouse General Laborer Name Role Phone Jayla Phoenix MD Primary Care Provider [phone] Reason for Referral * Diagnostic Imaging (Routine) - Closed Specialty Diagnoses / Procedures Referred By Contac t Referred To Contact Diagnoses Cervical fusion syndrome Procedures XR Spine Cervical W Flexion And Extension 6 or More Views Gabriel Horner MD Phone: tel: fax: [facility] Advanced Medicine Referral ID Status Reason Start Date Expiration Date Visits Re quested Visits Authorized [id number] Closed 07/09/2018 01/18/2020 1 1 EACH SPECIALIST Reason for Visit * Diagnostic Imaging (Routine) - Closed Specialty Diagnoses / Procedures Referred By Contac t Referred To Contact Diagnoses Cervical fusion syndrome Procedures XR Spine Cervical W Flexion And Extension 6 or More Views Gabriel Horner MD Phone: tel: fax: [facility] Advanced Medicine Referral ID Status Reason Start Date Expiration Date Visits Re quested Visits Authorized [id number] Closed 07/09/2018 01/18/2020 1 1 Encounter Details Date Type Department Care Team (Latest Contact Info) Description 07/16/2018 1:38 PM OUTREACH SPECIALIST - 07/16/2018 11:59 PM OUTREACH SPECIALIST Hospital Encounter [facility] [address] [place] [address] Gabriel Horner MD [address] [address] Cervical fusion syndrome Discharge Disposition: Discharge to home or self care Social History Tobacco Use Types Packs/Day Years Used Date Smoking Tobacco: Never Smokeless Tobacco: Never Alcohol Use Standard Drinks/Week Comments Yes 0 (1 standard drink = 0.6 oz pur e alcohol) Sex and Gender Information Value Date Recorded Sex Assigned at Not on file Legal Sex Male 7:18 PM OUTREACH SPECIALIST Gender Identity Male 02/04/2019 10:52 AM [...] VIEWS Schedule Routine, Read Routine (OP Routine) 07/16/2018 1:51 PM OUTREACH SPECIALIST Cervical fusion syndrome documented in this encounter Results * XR Spine Cervical W Flexion And Extension 6 or More Views (07/16/2018 1:51 PM OUTREACH SPECIALIST) Anatomical Region Laterality Modality Spine N/A Computed Radiogr aphy 07/16/2018 2:54 PM OUTREACH SPECIALIST Impressions 07/16/2018 3:18 PM OUTREACH SPECIALIST 1. ??Unchanged discectomy and anterior instrumented fusion of C5-C6, without motion at the fused segment. 2. ??Mild degenerative disc disease from C6-T1 and mild bilateral neuroforaminal narrowing at C5-C6. Dictated by: Johanne Adan M.D. Electronically signed by: Michael Lopez M.D. 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
--- OUTSIDE RECORDS SUMMARY | 2024-08-23 08:10 | XMS_ITS | Encounter Summary ---
Author Organization [facility] Address [address] [place] [address] Phone Care Team Providers Care Ethylbenzene Oxidizer Name Role Phone Jayla Phoenix MD Primary Care Provider + [phone] Reason for Referral * Diagnostic Imaging (Routine) - Closed Specialty Diagnoses / Procedures Referred By Elina senior Referred To Contact Radiology Diagnoses Cervical radiculopathy at C7 Cervical spondylosis with myelopathy Arthrodesis status Procedures MRI Cervical Spine WO Contrast Antonieta Sadler CNS Phone: tel: fax: [address] Referral ID Status Reason Start Date Expiration Date Visits Re quested Visits Authorized [id number] Closed 01/23/2019 02/21/2019 1 1 Reason for Visit * Reason Comments Pain Encounter Details Date Type Department Care Team (Latest Contact Info) Description 01/23/2019 9:30 AM CDT Office Visit [facility] Orthopaedic Surgery [address] [facility] 1st [address] [place] [id number] Antonieta Sadler CNS [address] [place], [place] [id number] Cervical radiculopathy at C7 (Primary Dx); Cervical spondylosis with myelopathy; Arthrodesis status Social History Tobacco Use Types Packs/Day Years Used Date Smoking Tobacco: Never Smokeless Tobacco: Never Alcohol Use Standard Drinks/Week Comments Yes 0 (1 standard drink = 0.6 oz pur e alcohol) Sex and Gender Information Value Date Recorded Sex Assigned at Not on file 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 Sex Male 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 Gender Identity Male 02/04/2019 10:52 AM CDT Sexual Orientation Straight 02/04/2019 10 :52 AM CDT documented as of this encounter Last Filed Vital Signs Vital Sign Reading Time Taken Comments Blood Pressure - - Pulse - - Temperature - - Respiratory Rate - - Oxygen Saturation - - Inhaled Oxygen Concentration - - Weight 90.7 kg (200 lb) 01/23/2019 9:36 AM CDT Height 188 cm (6' 2 ) 01/23/2019 9:36 AM CDT Body Mass Index 25.68 01/23/2019 9:36 AM CDT documented in this encounter Ordered Prescriptions Prescription Sig Dispense Quantity Refills Last Filled Start Date End Date tiZANidine (ZANAFLEX) 4 mg tablet Take 1 tablet (4 mg total) by mouth every 8 (eight) hours as needed for muscle spasms 90 tablet 01/23/2019 9 gabapentin (NEURONTIN) 300 mg capsule Take 1 capsule by mouth daily for 3 days, then increase to 1 capsule twice daily for 3 days, then 1 capsule three times a day thereafter. Do not stop medication abruptly 90 capsule 01/23/2019 9 documented in this encounter Progress Notes * Antonieta Sadler, BODY AND FRAME TECHNICIAN - 01/23/2019 9:30 AM CDT ESTABLISHED PATIENT VISIT HISTORY OF PRESENT ILLNESS: Mr. Vasques presented to my office with complaints of severe left-sided neck shoulder and radiating arm pain. He does not recall any particular trauma or inciting event which may have brought his symptoms on. The symptoms have been present for approximately 2 weeks however over the past week theybecame quite severe. He describes pain situated at the base of the cervical spine lateralize to theright. He notes intense pain which travels down the right arm terminating with a sense of numbness and tingling in the right hand. He does not have any left arm symptoms. He notes a sense of weaknessin his right arm. His symptoms are exacerbated by right lateral bending and neck extension. He cannot find any position which alleviates his symptoms. He is unable to sleep secondary to pain. He has been to the emergency room. He is on a course of dexamethasone. He has been given hydrocodone and tizanidine not have which have provided relief of his pain. He has also been using a home cervical traction unit. PAST MEDICAL/SURGICAL/SOCIAL/FAMILY HISTORY/DRUG ALLERIGES/MEDICATIONS/REVIEW OF SYSTEMS The patient questionnaire was updated by the patient and reviewed by me today. PHYSICAL EXAMINATION: General appearance: He appears extremely uncomfortable today in the office. He sits with his head lateralize to the left. Gait: Appears normal, no use of assist devices Head: Normocephalic, atraumatic Oral Cavity: Mucosa moist Skin: Warm and dry, normal turgor and color Vascular: Peripheral pulses palpable in both wrists and both feet Extremities: No cyanosis, clubbing or edema noted Musculoskeletal: No atrophy noted. General Neurological: Cranial Nerves: II-XII normal bilaterally Speech: Normal Involuntary movements: no tremors seen Cervical Spine Exam: Inspection: He has a well-healed anterior cervical scar Palpation: There is no tenderness to palpation directly over the cervical spine. There is some tenderness in the right paraspinal and periscapular muscles. Range of Motion of the Neck: Limited secondary to pain. Rotation and extension exacerbate his pain Range of Motion of the Shoulders: Full and nontender bilaterally Motor Strength: 5/5 in both upper extremities with the exception of the right triceps which has 3/5strength Reflexes: 3/4 at the right brachioradialis and biceps, 2/4 at the left brachioradialis and biceps, 1/4 at the triceps bilaterally, 3/4 at the knees and ankles. He has approximately 3 beats of ankle clonus on the right. I cannot elicit any ankle clonus on the left Hoffmans sign: Partial Marine sign on the left. Positive Marine sign on the right. Sensation: Altered to light touch in the thumb and 1st 2 digits of the right hand REVIEW OF X-RAY/STUDIES: Imaging studies of the cervical spine were ordered and reviewed by me today. There is a healed C5-C6 anterior cervical discectomy and instrumented fusion. There is moderate degenerative disc disease at the non-instrumented C6-C7 level. There is no prevertebral soft tissue swelling. There is no neuroforaminal stenosis bilaterally. ASSESSMENT/PLAN: Mr. Vasques has symptoms and exam findings consistent with right C7 radiculopathy. He has also hyperreflexic and has a history of cervical myelopathy. His symptoms that have not improved with the use of oral steroids and pain medications. He has demonstrable weakness in his right C7 innervated musculature. I would like to obtain an MRI scan of the cervical spine. We will arrange this for him assoon as possible. I will phone him with the results of this study. Additional treatment recommendations can be made at that time. FOLLOW-UP: Pending MRI results Antonieta Sadler RN, MSN, LIQUOR GRINDER MILL OPERATOR Spine Service [facility] Orth[facility] Collaborative practice with Dr. Gabriel Sadler RN, MSN, LIQUOR GRINDER MILL OPERATOR dictating using [employer] Software. Market Research Specialist variances may occur. documented in this encounter Plan of Treatment Not on file documented as of this encounter Results * MRI Cervical Spine [...] signed by: Sita Quinn M.D. Antonieta Sadler [facility] IMG MRI PROCEDURES Final Re sult documented in this encounter Visit Diagnoses Diagnosis Cervical radiculopathy at C7- Primary Brachial neuritis or radiculitis nos Cervical spondylosis with myelopathy Arthrodesis status Cervical radiculopathy at C7 Brachial neuritis or radiculitis nos Cervical spondylosis with myelopathy Arthrodesis status documented in this encounter Historical Medications * This list may reflect changes made after this encounter. HYDROcodone-aceta minophen (NORCO) 10-325 mg per tabletIndications :Pain Take 1 tablet by mouth every 6 (six) hours as needed for pain 02/17/2019 dexAMETHasone (DECADRON) 2 mg tablet Take 2 mg by mouth 2 (two) times a day with meals 02/12/2019 added in this encounter Care Teams Ethylbenzene Oxidizer Relationship Specialty Start Date End Date Jayla Phoenix MD [address] [place] [address] PCP - General 08/07/17 documented as of this encounter
--- OUTSIDE RECORDS SUMMARY | 2024-08-23 08:10 | XMS_ITS | Encounter Summary ---
Author Organization [facility] Address [address] [place] [address] Phone Care Team Providers Care Provider Scribe Name Role Phone Jayla Phoenix MD Primary Care Provider [phone] Encounter Details Date Type Department Care Team (Late st Contact Info) Description 04/18/2018 Telephone 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 Horner on 05/02/[address] Scott be out of the office that day. Mayda said she needed to make it for November then because that is the next week Kristian is off work the week after . I made the appt at 1:40pm on 07/16/18 with an arrival for xrays time of 1:10pm. She was fine with this and I gave her my # if there wasany issues or concerns that Kristian may have prior to his visit he can call me. She said he was doing for the most part, just fine, other than some stiffness. I told her not to hesitate to call if therewere anymore concerns. She is fine with this date of appt. documented in this encounter Plan of Treatment Not on file documented as of this encounter Visit Diagnoses Not on filedocumented in this encounter Care Teams Provider Scribe Relationship Specialty Start Date End Date Jayla Phoenix MD [address] [place], [place] [id number] PCP - General 08/07/17 documented as of this encounter
--- OUTSIDE RECORDS SUMMARY | 2024-08-23 08:35 | XMS_ITS | Patient Health Summary ---
Author Organization [facility] Address [address] [place] [address] Care Team Providers Care Soda Clerk Name Role Phone Jayla Phoenix MD Primary Care Provider [phone] Note from [facility],non-owned Affiliates and Associated Physician Practices is amultiple site organization consisting of ambulatory clinics and hospital sitesin [place], [place], [place]. This disclosure is being madepursuant to the Care Everywhere program and may not contain all information available regarding this patient. Last updated 18.[facility] Social History Tobacco Use Types Packs/Day Years Used Date Smoking Tobacco: Never Assessed Sex and Gender Information Value Date Recorded Sex Assigned at Not on file Gender Identity Not on file Sexual Orientation Not on file Procedures * XR ABDOMEN KUB(Performed 09/23/2013) Performed for Calculus of kidney Results * XR ABDOMEN 1 VW (09/23/2013 9:20 AM PALM AND BACK FORGER) Anatomical Region Laterality Modality Abdomen Radiographic Tiffany ging 09/23/2013 10:5 8 AM PALM AND BACK FORGER Impressions 09/23/2013 11:15 AM PALM AND BACK FORGER Left ureteral stent, bilateral calculi. Edited by Kely Kebede on 09/23/2013 11:03 AM Narrative 09/23/2013 11:15 AM PALM AND BACK FORGER ABDOMEN KUB ONE VIEW Indication: Abdominal pain. [...] AM Corbin Wood MD DIAGNOSTIC IMAGING [facility] Care Teams Soda Clerk Relationship Specialty Start Date End Date Jayla Phoenix MD PCP - General Internal Medicine 09/23/13
--- OUTSIDE RECORDS SUMMARY | 2024-08-23 08:35 | XMS_ITS | Clinical Summary ---
Author Organization [facility] Address [address] [place] [address] Care Team Providers Care Bending Roll Operator Name Role Phone Jayla Phoenix MD Primary Care Provider [phone] Source Comments [facility],non-owned Affiliates and Associated Physician Practices is amultiple site organization consisting of ambulatory clinics and hospital sitesin [place], [place], [place] and [place]. This disclosure is being madepursuant to the Care Everywhere program and may not contain all information available regarding this patient. Last updated 18.[facility] Social History Tobacco Use Types Packs/Day Years [...] age to complete this topic Care Teams Bending Roll Operator Relationship Specialty Start Date End Date Jayla Phoenix MD PCP - General Internal Medicine 09/23/13
--- OUTSIDE RECORDS SUMMARY | 2024-08-23 08:35 | XMS_ITS | Encounter Summary ---
Author Organization [facility] Address [address] [place] [address] Care Team Providers Care Nurse Aide Evaluator Name Role Phone Jayla Phoenix MD Primary Care Provider Encounter Details Date Type Department Care Team (Late st Contact Info) Description 09/23/2013 9:05 AM COFFEE GRINDER - 09/23/2013 9:13 AM COFFEE GRINDER Hospital Encounter Counts include 234 beds at the [facility] [address] [place] [address] Jayla Phoenix MD [address] [place] [address] Discharge Disposition: Home or Self Care Social History Tobacco Use Types Packs/Day Years Used Date Smoking Tobacco: Never Assessed Sex and Gender Information Value Date Recorded Sex Assigned at Not on file Gender Identity Not on file Sexual Orientation Not on file documented as of this encounter Miscellaneous Notes * Miscellaneous Scans - Document, Scanned - 09/24/2013 10:10 PM CST EE GRINDER documented in this encounter Plan of Treatment Not on file documented as of this encounter Visit Diagnoses Not on filedocumented in this encounter Care Teams Nurse Aide Evaluator Relationship Specialty Start Date End Date Jayla Phoenix MD PCP - General Internal Medicine 09/23/13 documented as of this encounter
--- OUTSIDE RECORDS SUMMARY | 2024-08-23 08:35 | XMS_ITS | Referral Summary ---
Author Organization [facility] Address [address] [place] [place] [address] Care Team Providers Care Driver Service Technician Name Role Phone Jayla Phoenix MD Primary Care Provider [phone] Source Comments [facility],non-ssm health care Affiliates and Associated Physician Practices is amultiple site organization consisting of ambulatory clinics and hospital sitesin [place], [place], [place] and [place]. This disclosure is being madepursuant to the Care Everywhere program and may not contain all information available regarding this patient. Last updated 18.[facility] [employer] Social History Tobacco Use Types Packs/Day Years Used Date Smoking Tobacco: Never Assessed Sex and Gender Information Value Date Recorded Sex Assigned at Not on file Gender Identity Not on file Sexual Orientation Not on file Plan of Treatment Not on file Care Teams Driver Service Technician Relationship Specialty Start Date End Date Jayla Phoenix MD PCP - General Internal Medicine 09/23/13
--- OUTSIDE RECORDS SUMMARY | 2024-08-23 08:35 | XMS_ITS | Encounter Summary ---
Author Organization [facility] Address [address] [place] [address] Care Team Providers Care Chief Petroleum Engineer Name Role Phone Jayla Phoenix MD Primary Care Provider [phone] Encounter Details Date Type Department Care Team (Latest Contact Info) Description 09/23/2013 9:14 AM PUBLIC POLICY MANAGER - 09/23/2013 11:59 PM PUBLIC POLICY MANAGER Hospital Encounter [facility] Imaging Services - Radiology [address] [place] [address] Corbin Wood MD [address] [place] [phone] Discharge Disposition: Home or Self Care [...] XR ABDOMEN KUB Routine 09/23/2013 9:20 AM PUBLIC POLICY MANAGER Calculus of kidney documented in this encounter Results * XR ABDOMEN 1 VW (09/23/2013 9:20 AM PUBLIC POLICY MANAGER) Anatomical Region Laterality Modality Abdomen Radiographic Tiffany ging 09/23/2013 10:5 8 AM PUBLIC POLICY MANAGER Impressions 09/23/2013 11:15 AM PUBLIC POLICY MANAGER Left ureteral stent, bilateral calculi. Edited by Kely Kebede on 09/23/2013 11:03 AM Narrative 09/23/2013 11:15 AM PUBLIC POLICY MANAGER ABDOMEN KUB ONE VIEW Indication: Abdominal [...] kidney documented in this encounter Care Teams Chief Petroleum Engineer Relationship Specialty Start Date End Date Jayla Phoenix MD PCP - General Internal Medicine 09/23/13 documented as of this encounter
== END 2024-08-16 15:24 | disposition home or self-care (01) ==
PROVIDERS: Emergency Medicine; Emergency Provider General Practice; PCP Internal Medicine
DX: R07.89 Other chest pain (principal); K50.80 Crohn's disease of both small and large intestine without complications
CPT/HCPCS: 36415; 71046; 80053; 83690; 84484; 85025; 85380; 85610; 85730; 93005; 96374; 96375; 99284; A9270; J2270; J2405

== ENCOUNTER 2025-03-08 09:45 | Outpatient (CLI) | payer OTHER, SELFPAY ==
--- OUTSIDE RECORDS SUMMARY | 2025-03-08 09:50 | XMS_ITS | Encounter Summary ---
Author Organization [facility] Address [address] [place] [address] Phone Care Team Providers Care Mail Deliverer Name Role Phone Jayla Phoenix MD Primary Care Provider [phone] Encounter Details Date Type Department Care Team [...] on file Legal Sex Male 7:18 PM BANDAGE MAKER Gender Identity Male 02/04/2019 10:52 AM CDT Sexual Orientation Straight 02/04/2019 10 :52 AM CDT documented as of this encounter Plan of Treatment Upcoming Encounters Date Type Department Care Team (Latest Contact Info) Description 05/28/2025 8:00 AM CDT Hospital Encounter [facility] Endoscopy [address] [address] [address] Corbin Duque MD [address] [place] [address] 05/28/2025 8:00 AM CDT - 05/28/2025 9:00 AM CDT Surgery [facility] Endoscopy [address] [place] [address] Corbin Duque MD [address] [place], [place] [id number] COLONOSCOPY with NBI Scheduled Procedures Name Priority Associated Diagnoses Date/Ti me COLONOSCOPY Crohn's disease of small and large intestines with complication (HCC) 05/28/2025 8:00 AM CDT documented as of this encounter Procedures Procedure Name Priority Date/Time Associated Diagnosis Comments SCAN - LABS 01/26/2020 documented in this encounter Results * SCAN - LABS (01/26/2020) us Provider Scanning Final Result documented in this encounter Visit Diagnoses Not on filedocumented in this encounter Care Teams Mail Deliverer Relationship Specialty Start Date End Date Jayla Phoenix MD [address] [place] [address] PCP - General 08/07/17 documented as of this encounter
--- OUTSIDE RECORDS SUMMARY | 2025-03-08 09:50 | XMS_ITS | Encounter Summary ---
Author Organization [facility] Address [address] [place] [address] Phone Care Team Providers Care Carbon Printer Name Role Phone Jayla Phoenix MD Primary Care Provider [phone] Encounter Details Date Type Department Care Team (Late st Contact Info) Description 01/29/2025 Results Follow-Up [facility] Cardiology [address] [facility] [address] [place] [address] Ravi Simon MD [address] [place] [address] Stress Treadmill Test Social History Tobacco Use Types Packs/Day Years [...] on file Legal Sex Male 7:18 PM FAMILY SERVICES ASSISTANT Gender Identity Male 02/04/2019 10:52 AM CDT Sexual Orientation Straight 02/04/2019 10 :52 AM CDT documented as of this encounter Plan of Treatment Upcoming Encounters Date Type Department Care Team (Latest Contact Info) Description 05/28/2025 8:00 AM CDT Hospital Encounter [facility] Endoscopy [address] [place] [address] Corbin Duque MD [address] [place] [address] 05/28/2025 8:00 AM CDT - 05/28/2025 9:00 AM CDT Surgery [facility] Endoscopy [address] [place] [address] Corbin Duque MD [address] [place], [place] [id number] COLONOSCOPY with NBI Scheduled Procedures Name Priority Associated Diagnoses Date/Ti me COLONOSCOPY Crohn's disease of small and large intestines with complication (HCC) 05/28/2025 8:00 AM CDT documented as of this encounter Visit Diagnoses Not on filedocumented in this encounter Care Teams Carbon Printer Relationship Specialty Start Date End Date Jayla Phoenix MD [address] [place] [address] PCP - General 08/07/17 documented as of this encounter
--- OUTSIDE RECORDS SUMMARY | 2025-03-08 09:50 | XMS_ITS | Encounter Summary ---
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 Gender Identity Male 02/04/2019 10:52 AM CDT Sexual Orientation Straight 02/04/2019 10 :52 AM CDT documented as of this encounter Plan of Treatment Upcoming Encounters Date Type Department Care Team (Latest Contact Info) Description 05/28/2025 8:00 AM CDT Hospital Encounter [facility] Endoscopy [address] [address] [address] Corbin Duque MD [address] [place] [address] 05/28/2025 8:00 AM CDT - 05/28/2025 9:00 AM CDT Surgery [facility] Endoscopy [address] [address] [address] Corbin Duque MD [address] [place] [address] COLONOSCOPY with NBI Scheduled Procedures Name Priority [...] on filedocumented in this encounter Care Teams Spot Worker Relationship Specialty Start Date End Date Jayla Phoenix MD [address] [place] [address] PCP - General 08/07/17 documented as of this encounter
--- OUTSIDE RECORDS SUMMARY | 2025-03-08 09:50 | XMS_ITS | Clinical Summary ---
Author Organization [facility] Address [address] [place] [address] Care Team Providers Care Wire Winding Machine Operator Name Role Phone Jayla Phoenix MD Primary Care Provider [phone] Source Comments [facility],non-owned Affiliates and Associated Physician Practices is amultiple site organization consisting of ambulatory clinics and hospital sitesin [place], [place], [place] and [place]. This disclosure is being madepursuant to the Care Everywhere program and may not contain all information available regarding this patient. 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 Gender Identity Not on file Sexual Orientation [...] of 3 - 19+ 3-dose series) 1991 PNEUMOCOCCAL VACCINE 50+ (1 of 1 - PCV) 2022 ZOSTER VACCINE (1 of 2) 2022 COVID-19 VACCINE (1 - 2023-2 5 season) 2024 DEPRESSION SCREENING 08/19/2024 INFLUENZA VACCINE (#1) 2025 HIB VACCINE Aged Out No longer eligi ble based on patient's age to complete this topic HPV VACCINE Aged Out No longer eligi ble based on patient's age to complete this topic MENINGOCOCCAL (Group B) VACC INE SHARED DECISION-MAKING Aged Out No longer eligibl e based on patient's age to complete this topic MENINGOCOCCAL GROUPS A/C/Y/W VACCINE Aged Out No longer eligible b ased on patient's age to complete this topic Insurance [employer] Care Teams Wire Winding Machine Operator Relationship Specialty Start Date End Date Jayla Phoenix MD PCP - General Internal Medicine 09/23/13
--- OUTSIDE RECORDS SUMMARY | 2025-03-08 09:50 | XMS_ITS | Encounter Summary ---
Author Organization [facility] Address [address] [place] [address] Care Team Providers Care Publicity Director Name Role Phone Jayla Phoenix MD Primary Care Provider Encounter Details Date Type Department Care Team (Late Contact Info) Description 12/16/2020 Telephone [facility] Imaging [address] [address] [address] Social History Tobacco Use Types Packs/Day Years Used Date Smoking Tobacco: Former Cigarettes 1.5 9 1 994 - 2002 Smokeless Tobacco: Never Alcohol Use Standard Drinks/Week Comments Not Currently 0 (1 standard drink = 0.6 oz pur e alcohol) Sex and Gender Information Value Date Recorded Sex Assigned at Not on file 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 Gender Identity Male 02/04/2019 10:52 AM CDT Sexual Orientation Straight 02/04/2019 10 :52 AM CDT documented as of this encounter Plan of Treatment Upcoming Encounters Date Type Department Care Team (Latest Contact Info) Description 05/28/2025 8:00 AM CDT Hospital Encounter [facility] Endoscopy [address] [address] [place] [address] Corbin Duque MD [address] [place] [address] 05/28/2025 8:00 AM CDT - 05/28/2025 9:00 AM CDT Surgery [facility] Endoscopy [address] [place] [address] Corbin Duque MD [address] [place] [address] COLONOSCOPY with NBI Scheduled Procedures Name Priority Associated Diagnoses Date/Ti me COLONOSCOPY Crohn's disease of small and large intestines with complication (HCC) 05/28/2025 8:00 AM CDT documented as of this encounter Visit Diagnoses Not on filedocumented in this encounter Care Teams Publicity Director Relationship Specialty Start Date End Date Jayla Phoenix MD [address] [place] [address] PCP - General 08/07/17 documented as of this encounter
--- OUTSIDE RECORDS SUMMARY | 2025-03-08 09:50 | XMS_ITS | Encounter Summary ---
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 Gender Identity Male 02/04/2019 10:52 AM CDT Sexual Orientation Straight 02/04/2019 10 :52 AM CDT documented as of this encounter Plan of Treatment Upcoming Encounters Date Type Department Care Team (Latest Contact Info) Description 05/28/2025 8:00 AM CDT Hospital Encounter [facility] Endoscopy [address] [address] [address] Corbin Duque MD [address] [place] [address] 05/28/2025 8:00 AM CDT - 05/28/2025 9:00 AM CDT Surgery [facility] Endoscopy [address] [place] [address] Corbin Duque MD [address] [place], [place] [phone] COLONOSCOPY with NBI Scheduled Procedures Name Priority [...] on filedocumented in this encounter Care Teams State Inspector Relationship Specialty Start Date End Date Jayla Phoenix MD [address] [place] [address] PCP - General 08/07/17 documented as of this encounter
--- OUTSIDE RECORDS SUMMARY | 2025-03-08 09:50 | XMS_ITS | Encounter Summary ---
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 Gender Identity Male 02/04/2019 10:52 AM CDT Sexual Orientation Straight 02/04/2019 10 :52 AM CDT documented as of this encounter Plan of Treatment Upcoming Encounters Date Type Department Care Team (Latest Contact Info) Description 05/28/2025 8:00 AM CDT Hospital Encounter [facility] Endoscopy [address] [address] [address] Corbin Duque MD [address] [place] [address] 05/28/2025 8:00 AM CDT - 05/28/2025 9:00 AM CDT Surgery [facility] Endoscopy [address] [place] [address] Corbin Duque MD [address] [place], [place] [id number] COLONOSCOPY with NBI Scheduled Procedures Name Priority [...] on filedocumented in this encounter Care Teams Psychological Examiner Relationship Specialty Start Date End Date Jayla Phoenix MD [address] [place] [address] PCP - General 08/07/17 documented as of this encounter
--- OUTSIDE RECORDS SUMMARY | 2025-03-08 09:50 | XMS_ITS | Referral Summary ---
Author Organization [facility] Address [address] [place] [address] Care Team Providers Care Deep Fat Fry Cook Name Role Phone Jayla Phoenix MD Primary Care Provider [phone] Encounters Date Type Department Care Team Description 03/03/2025 9:45 AM CDT - 03/03/2025 11:59 PM CDT Hospital Encounter [facility] [address] [place] [address] Nephrolithiasis Discharge Disposition: Discharge to home or self care 03/03/2025 11:00 AM CDT Office Visit [facility] Advanced Medicine ([facility]) - [facility] Urology [address] [facility] 11th [place] [address] [place] [phone] Tyler Phan MD Nephrolithiasis (Primary Dx); Benign prostatic hyperplasia with urinary frequency 02/25/[address] [facility] Gastroenterology [address] [facility] 12th [place] [address] [place] [phone] Corbin Duque MD High risk medications (not anticoagulants) long-term use (Primary Dx); Crohn's disease of both small and large intestine with other complication (HCC) 01/29/2025 Results Follow-Up [facility] Cardiology [address] [facility] Medical Office Building [address] [place] [phone] Huang Simon MD Stress Treadmill Test 01/21/[address] [facility] Gastroenterology [address] [facility] Medicine 12th [place] [address] [place] [address] Corbin Duque MD Crohn's disease of small and large intestines with complication (HCC) (Primary Dx) 01/19/2025 10:[address] [facility] Gastroenterology [address] [facility] Medical Office Building [address] [place] [phone] Corbin Duque MD Crohn's disease of small and large intestines with complication (HCC) (Primary Dx); High risk medications (not anticoagulants) long-term use 01/18/2025 9:15 AM CDT Ancillary Procedure [facility] [address] [place] [address] [address] [place] [phone] Chest pain, unspecified type; Abnormal EKG 12/08/2024 Results Follow-Up [facility] Cardiology [address] [place] [address] Medical Office Building [address] [place] [phone] Katlyn Owens RN CTA Chest W Contrast 12/07/2024 1:50 PM CDT - 12/07/2024 11:59 PM CDT Hospital Encounter [facility] Imaging [address] [place] [address] Abnormality of ascending aorta Discharge Disposition: Discharge to home or self care from Last 3 Months Allergies Active Allergy Reactions Criticality Noted Date Comments Iodinated Contrast Media Rash Medium 01/23/2019 Medications losartan-hydroch lorothiazide (HYZAAR) 100-25 mg per tabletIndication s:hypertension Take 1 tablet by mouth nightly 02/24/20 19 Active multivitamin capsuleIndicatio ns:Vitamin Deficiency Prevention Take 1 capsule by mouth bladder trimmer before breakfast Active cyanocobalamin, vitamin B-12, 5,000 mcg tablet, sublingualIndica tions:Prevention of Vitamin B12 Deficiency Place 1 tablet under the tongue bladder trimmer before breakfast Active traZODone (DESYREL) 100 mg tablet TAKE 2 TABLETS (100 MG) BY ORAL ROUTE AT BEDTIME 08/20/19 23 Active fenofibrate (TRICOR) 54 mg tablet Take 1 tablet (54 mg total) by mouth daily 08/10/20 24 Active potassium chloride ER 10 mEq CR tablet Take 1 tablet/capsul e (10 mEq total) by mouth daily 08/09/20 24 Active colestipoL (COLESTID) 1 gram tablet TAKE 2 TABLETS BY MOUTH TWICE A DAY 360 tablet 1 12/04/19 25 Active tamsulosin (FLOMAX) 0.4 mg extended release capsuleIndicatio ns:Nephrolithias is Take 2 capsules (0.8 mg total) by mouth nightly 180 capsule 01/30/20 25 026 Active Stelara 90 mg/mL syringeIndicatio ns:Crohn's disease of small and large intestines with complication (HCC) INJECT 1 SYRINGE UNDER THE SKIN EVERY 6 WEEKS 1 mL 02/25/20 25 Active ustekinumab (Stelara) injectionIndicat ions:Crohn's disease of small and large intestines with complication (HCC) Inject 1 mL (90 mg total) under the skin every 6 (six) weeks SAFETY LABS REQUIRED EVERY 6 MONTHS FOR REFILL. NEXT LABS DUE 01/2025 3 mL 10/16/19 25 025 Discontinued Hospital, Clinic, or Other Facility Administered Medication Ordered Dose Route Frequency Start Date End Date Status perflutren protein-a (OPTISON) 3 mL in sodium chloride 0.9% 8 mL syringe 1 - 8 mL IV Once in imaging 11/20/2024 Active Active Problems Problem Noted Date Diagnosed Date Crohn's disease of small and large intestines with complication 12/21/2020 Overview (12/21/2020): Added automatically from request for surgery [id number] Hyperoxaluria 12/21/2020 Benign prostatic hyperplasia with urinary [...] (04/05/2020): Added automatically from request for surgery [id number] 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 Year symptoms began: 2000. Phenotype: Penetrating (B3) without perianal disease. Distribution: ileocolonic (L3) without upper GI disease (L4). Extraintestinal manifestations: arthralgias. Complications: hx SBO Kidney stones, hydronephrosis Prior treatments: pentasa. Current treatment: Stelara (started 04/2020) every 8 weeks, level 7.7 09/2020, 11/06/21 3.3, escalated to q 4 weeks in 10/2023, on q6 stelara due to insurance since 02/2024 FC 22 02/2020 Prior surgeries: IC resection [...] immune Covid vaccine: Unknown Assessment & Plan (01/19/2025 10:11 AM CDT): CD doing ok. Some urgency. No other sx's. Due for surveillance colon. Wiill f/u in 6 mo. Doing reasonable. Assessment & Plan (07/21/2024 11:14 AM FISHING HAND): CD doing well. Noted on stelara q [...] now. Assessment & Plan (09/19/2022 9:40 AM FISHING HAND): Long standing CD doing well with one [...] in the TI. Just started stelara on 9/18. Doing well.. One stool daily. Denies any [...] (02/02/2019): Added automatically from request for surgery [id number] Cervical radiculopathy 02/02/2019 Overview (02/02/2019): Added automatically from request for surgery [id number] Fusion of spine of cervical region 02/02/2019 Overview (02/02/2019): Added automatically from request for surgery [id number] Cervical radiculopathy at C7 01/23/2019 Cervical pain (neck) 09/03/2017 Immunizations Immunization Administration Dates Next Due Influenza, Quadrivalent, Spl [...] on file Legal Sex Male 7:18 PM FISHING HAND Gender Identity Male 02/04/2019 10:52 AM CDT Sexual Orientation Straight 02/04/2019 10 :52 AM CDT Last Filed Vital Signs Vital Sign Reading Time Taken Comments Blood Pressure 120/82 10/19/2024 1:38 PM FISHING HAND Pulse 84 10/19/2024 1:38 PM FISHING HAND Temperature 36.3 C (97.3 F) 05/03/2023 9:55 AM CDT Respiratory Rate 27 05/03/2023 11:40 AM CDT Oxygen Saturation 97% 10/19/2024 1:38 PM FISHING HAND Inhaled Oxygen Concentration - - Weight 114.8 kg (253 lb) 10/19/2024 1:38 PM FISHING HAND Height 188 cm (6' 2) 10/09/2023 10:07 AM FISHING HAND Body Mass Index 32.48 10/09/2023 10:07 AM FISHING HAND Plan of Treatment Upcoming Encounters Date Type Department Care Team (Latest Contact Info) Description 05/28/2025 8:00 AM CDT Hospital Encounter [facility] Endoscopy [address] [place] [address] Corbin Duque MD [address] [place] [address] 05/28/2025 8:00 AM CDT - 05/28/2025 9:00 AM CDT Surgery [facility] Endoscopy [address] [place] [address] Corbin Duque MD [address] [place] [address] COLONOSCOPY with NBI Scheduled Procedures Name Priority Associated Diagnoses Date/Ti me COLONOSCOPY Crohn's disease of small and large intestines with complication (HCC) 05/28/2025 8:00 AM CDT Medical Devices Implanted Type Area Ammunition Assembly I Laborer Device Identifier Shelf Expiration Date Model / Serial / Lot Titanium Plates N/A: Neck Musculoskeletal Transplant [id number] Frozen Spine 7d Lordotic Trapezoid Spacer Allograft - [id number] - [id number] Implanted:Qty: 1 on 02/16/2019 by Gabriel Horner MD at [facility] N/A: Spine Cervical Musculoskeletal Transplant 11/13/2022 [id number] / [id number] / [employer] [id number] Maxan 10mm Level 1 Spine Cervical Anterior Plate Bone Titanium - [id number] Implanted:Qty: 1 on 02/16/2019 by Gabriel Horner MD at [facility] N/A: Spine Cervical [employer] [id number] / / [employer] [id number] 4mm 16mm Fix Screw Bone - [id number] Implanted:Qty: 4 on 02/16/2019 by Gabriel Horner MD at [facility] N/A: Spine Cervical [employer] [id number] / / Procedures Procedure Name Priority Date/Time Associated Diagnosis Comments US KIDNEY COMPLETE Schedule Routine, Read Routine (OP Routine) 03/03/2025 10:45 AM CDT Nephrolithiasis STRESS TEST ONLY TREADMILL Routine 01/18/2025 9:46 AM CDT Chest pain, unspecified type Abnormal EKG CTA CHEST W CONTRAST Schedule Routine, Read Routine (OP Routine) 12/07/2024 2:10 PM CDT Abnormality of ascending aorta POC ISTAT Routine 12/07/2024 2:09 PM CDT COLONOSCOPY 05/03/2023 10:45 AM CDT from Last 3 Months or Most Recently Relevant to Health Maintenance Results * US Kidney Complete (03/03/2025 10:45 AM CDT) Anatomical Region Laterality Modality Kidney N/A Ultrasound 03/03/2025 11:0 1 AM CDT Impressions 03/03/2025 11:06 AM CDT 1. Nephrolithiasis including a 1.5 cm right upper pole renal stone, a 1.3 cm left midpole renal stone, and a 1.0 cm left lower pole renal stone. The two larger stones are unchanged; the smallest stone was not definitely seen on the prior study and could be new versus better visualized now due to differences in technique. 2. No hydronephrosis. Dictated by: Christiana Johnson M.D. The radiology attending physician has personally reviewed this study, and had reviewed and/or edited this written report and agrees with it. Electronically signed by: Miguel Macias M.D. Narrative 03/03/2025 11:06 AM CDT EXAMINATION: COMPLETE RENAL SONOGRAM HISTORY: 54-year-old man with nephrolithiasis. Follow-up. COMPARISON: Prior ultrasound dated 02/28/2024. FINDINGS: Kidneys: The echogenicity of both kidneys is normal. The kidneys are normal in size. The right kidney measures 11.3 cm in length, and the left, 11.1 cm in length. There is no hydronephrosis in either kidney. There is a 1.5 cm stone in the upper pole of the right kidney. In the left kidney, there is a 1.3 cm stone in the midpole of the left kidney as well as a 1.0 cm stone in the inferior pole of the left kidney. A milk of calcium cyst is noted in the lower pole left kidney. Bladder: The urinary bladder is normal Procedure Note Miguel Macias MD - 03/03/2025 EXAMINATION: COMPLETE RENAL SONOGRAM HISTORY: 54-year-old man with nephrolithiasis. Follow-up. COMPARISON: Prior ultrasound dated 02/28/2024. FINDINGS: Kidneys: The echogenicity of both kidneys is normal. The kidneys are normal in size. The right kidney measures 11.3 cm in length, and the left, 11.1 cm in length. There is no hydronephrosis in either kidney. There is a 1.5 cm stone in the upper pole of the right kidney. In the left kidney, there is a 1.3 cm stone in the midpole of the left kidney as well as a 1.0 cm stone in the inferior pole of the left kidney. A milk of calcium cyst is noted in the lower pole left kidney. Bladder: The urinary bladder is normal IMPRESSION: 1. Nephrolithiasis including a 1.5 cm right upper pole renal stone, a 1.3 cm left midpole renal stone, and a 1.0 cm left lower pole renal stone. The two larger stones are unchanged; the smallest stone was not definitely seen on the prior study and could be new versus better visualized now due to differences in technique. 2. No hydronephrosis. Dictated by: Christiana Johnson M.D. The radiology attending physician has personally reviewed this study, and had reviewed and/or edited this written report and agrees with it. Electronically signed by: Miguel Macias M.D. Hipolito Reyes MD [facility] [place]ED[place] F inal Result * Stress Treadmill Test (01/18/2025 9:46 AM CDT) Anatomical Region Laterality Modality Electrocardiogra phy 01/18/2025 9:15 AM CDT Narrative 01/18/2025 10:[address] [facility] Cardiac Diagnostic Lab [address] , [address] [place] [address] EXERCISE STRESS Patient Name: ZOEY JOSEPH M : 1970 (54y 6m) Gender: M Study Date: 01/18/2025 09:15:00 AM Ht(Inch): 74 Wt(Lb): 253 BSA: 2.45 Tech: Location: [facility] Order Provider: HUANG SIMON BMI: 32.48 Ref Provider: HUANG SIMON PROCEDURES: Stress Report: Cardiovascular Treadmill Stress Exam. Protocol: Julio Cesar. INDICATIONS: R07.9 Chest pain, unspecified and R94.31 Abnormal electrocardiogram (ECG) (EKG). FINDINGS: Performed By: Griselda Gracia, RN,BSN. Supervising Physician: Dr. Chris Soni. Cardiac History: Cardiac History: No cardiac disease. Physical Exam: Allergies: IV Constrast. Procedure Data: Peak HR: 150 bpm Predicted Maximal HR: 168 bpm Percent Max Predicted HR Achieved: 89 % 85% of MPHR: 142.8 bpm Peak BP: 188/62 mmHg Max Stage: 3 METS Achieved: 9.70 Baseline ECG: Normal ECG Anterior TWA Chest Pain: No chest pain. Heart Rate Response: Heart rate response is appropriate. Blood Pressure Response: Blood pressure response is appropriate. Reason For Termination: Fatigue. Cardiac Symptoms With Stress: None. Exercise Performance: Exercise performance was average. ECG Abnormalities During/After Stress: No ECG abnormalities during or after stress. No ST depression during maximal exercise test New Arrhythmias Developed During/After Stress: No new arrhythmias developed during or after stress. EXERCISE: TIME (min) SPEED (mph) GRADE Stage HR (bpm) BP (mmHg) Peak HR (bpm) Standing Baseline 80 132/87 Walking 2 1.7 10 1 110 138/80 Walking 5 2.5 12 2 133 150/60 Walking 6:55 3.4 14 3 150 188/62 RECOVERY: TIME (min) HR (bpm) BP (mmHg) Recovery 3 100 164/90 Recovery 6 90 136/84 CONCLUSIONS: 1. Exercise performance was average. 2. No ECG abnormalities during or after stress. ATTESTATION: I have personally reviewed and interpreted this study without fellow or resident. Electronically Signed By: Chris Soni MD 01/18/2025 10:39:59 AM CDT Electronically Signed By: Chris Soni MD 01/18/2025 10:39:59 AM CDT Procedure Note Chris Logan MD - 01/18/2025 [facility] Cardiac Diagnostic Lab [address] , [address] [place] [address] EXERCISE STRESS Patient Name: ZOEY JOSEPH M : 1970 (54y 6m) Gender: M Study Date: 01/18/2025 09:15:00 AM Ht(Inch): 74 Wt(Lb): 253 BSA: 2.45 Tech: Location: [facility] Order Provider: HUANG SIMON BMI: 32.48 Ref Provider: HUANG SIMON PROCEDURES: Stress Report: Cardiovascular Treadmill Stress Exam. Protocol: Julio Cesar. INDICATIONS: R07.9 Chest pain, unspecified and R94.31 Abnormal electrocardiogram (ECG)(EKG). FINDINGS: Performed By: Griselda Gracia, RN,BSN. Supervising Physician: Dr. Chris Soni. Cardiac History: Cardiac History: No cardiac disease. Physical Exam: Allergies: IV Constrast. Procedure Data: Peak HR: 150 bpm Predicted Maximal HR: 168 bpm Percent Max Predicted HR Achieved: 89 % 85% of MPHR: 142.8 bpm Peak BP: 188/62 mmHg Max Stage: 3 METS Achieved: 9.70 Baseline ECG: Normal ECG Anterior TWA Chest Pain: No chest pain. Heart Rate Response: Heart rate response is appropriate. Blood Pressure Response: Blood pressure response is appropriate. Reason For Termination: Fatigue. Cardiac Symptoms With Stress: None. Exercise Performance: Exercise performance was average. ECG Abnormalities During/After Stress: No ECG abnormalities during or after stress. No ST depression during maximal exercise test New Arrhythmias Developed During/After Stress: No new arrhythmias developed during or after stress. EXERCISE: TIME (min) SPEED (mph) GRADE Stage HR (bpm) BP (mmHg) Peak HR (bpm) Standing Baseline 80 132/87 Walking 2 1.7 10 1 110 138/80 Walking 5 2.5 12 2 133 150/60 Walking 6:55 3.4 14 3 150 188/62 RECOVERY: TIME (min) HR (bpm) BP (mmHg) Recovery 3 100 164/90 Recovery 6 90 136/84 CONCLUSIONS: 1. Exercise performance was average. 2. No ECG abnormalities during or after stress. ATTESTATION: I have personally reviewed and interpreted this study without fellow orresident. Electronically Signed By: Chris Soni MD 01/18/2025 10:39:59 AM CDT Electronically Signed By: Chris Soni MD 01/18/2025 10:39:59 AM CDT us Huang Simon MD CV STRESS PROCEDURES Final R esult * CTA Chest W Contrast (12/07/2024 2:10 PM CDT) Anatomical Region Laterality Modality Chest N/A Computed Tomogra phy 12/07/2024 2:48 PM CDT Impressions 12/07/2024 4:03 PM CDT Mild dilatation of ascending thoracic aorta measuring up to 43 mm. Dictated by: Doretha Chan MD The radiology attending physician has personally reviewed this study, and had reviewed and/or edited this written report and agrees with it. Electronically signed by: Aric Koch MD, PHD Narrative 12/07/2024 4:03 PM CDT EXAMINATION: CT ANGIOGRAPHY OF THE CHEST WITH AND WITHOUT CONTRAST HISTORY: 54-year-old with Crohn's disease, an atypical chest pain TECHNIQUE: Computed tomographic images of the chest were acquired without and with intravenous contrast using an angiographic protocol optimized for aortic dissection (aorta). The contrast enhanced transaxial images were obtained following the intravenous administration of 100 ml of nonionic contrast. Multiplanar reformatted images and three-dimensional images of the aorta and associated vasculature were obtained on the 3-D workstation and sent to the [employer] archival system. COMPARISON: None FINDINGS: No evidence of acute aortic syndrome. No pulmonary embolism. Mild dilatation of the ascending thoracic aorta. Measurements are as follows: Sinus of Valsalva: 38 x 35 x 39 mm. Sinotubular junction: 33 x 35 mm. Maximum diameter of ascending thoracic aorta: 43 x 43 mm. Descending thoracic aorta: 24 x 24 mm. No thoracic adenopathy. Normal esophagus and thyroid. Hypoattenuating lesion in hepatic segment 8 most likely a simple cyst. 12 mm non-obstructing stone in the interpolar left kidney and 10 mm non-obstructing stone in the right kidney. No hydronephrosis. No suspicious osseous lesions. Procedure Note Aric Koch MD PhD - 12/07/2024 EXAMINATION: CT ANGIOGRAPHY OF THE CHEST WITH AND WITHOUT CONTRAST HISTORY: 54-year-old with Crohn's disease, an atypical chest pain TECHNIQUE: Computed tomographic images of the chest were acquired without and with intravenous contrast using an angiographic protocol optimized for aortic dissection (aorta). The contrast enhanced transaxial images were obtained following the intravenous administration of 100 ml of nonionic contrast. Multiplanar reformatted images and three-dimensional images of the aorta and associated vasculature were obtained on the 3-D workstation and sent to the [employer] archival system. COMPARISON: None FINDINGS: No evidence of acute aortic syndrome. No pulmonary embolism. Mild dilatation of the ascending thoracic aorta. Measurements are as follows: Sinus of Valsalva: 38 x 35 x 39 mm. Sinotubular junction: 33 x 35 mm. Maximum diameter of ascending thoracic aorta: 43 x 43 mm. Descending thoracic aorta: 24 x 24 mm. No thoracic adenopathy. Normal esophagus and thyroid. Hypoattenuating lesion in hepatic segment 8 most likely a simple cyst. 12 mm non-obstructing stone in the interpolar left kidney and 10 mm non-obstructing stone in the right kidney. No hydronephrosis. No suspicious osseous lesions. IMPRESSION: Mild dilatation of ascending thoracic aorta measuring up to 43 mm. Dictated by: Doretha Chan MD The radiology attending physician has personally reviewed this study, and had reviewed and/or edited this written report and agrees with it. Electronically signed by: Aric Koch MD, PHD Huang Simon MD IMG CT PROCEDURES Final Resu lt * POC ISTAT (12/07/2024 2:09 PM CDT) Creatinine, POC, bld 1.3 0.6 - 1.3 mg/dL POC Device Number [id number] RYAN BJW[facility] POC Performer [id number] RYAN BILLYCH Blood 12/07/2024 2:09 PM CDT 12/07/2024 2:09 PM CDT Huang Simon MD LAB BLOOD ORDERABLES Final R esult [facility] B[facility] [address] [facility] [address] * COLONOSCOPY (05/03/2023 10:45 AM CDT) Anatomical Region Laterality Modality Other Narrative Procedure Note Corbin Duque MD - 05/03/2023 10:45 AM CDT ENDOSCOPY LAB Patient Name: Zoey Joseph Procedure Date: 05/03/2023 10:45 AM Date of : 1970 Admit Type: Outpatient Age: 52 Gender: Male Attending MD: Corbin Duque M.D. Room: [facility] ENDOSCOPY ROOM 01 Note Status: Finalized [...] The scope was passed under direct vision.The [id number] was introduced through the anusand advanced to [...] 0 Note Initiated On: 05/03/2023 10:45 AM us Corbin Duque MD ENDOSCOPY PROCEDURES Final Result from Last 3 Months or Most Recently Relevant to Health Maintenance Insurance [facility] [place] [place] Advance Directives For more information, please contact: [phone] * Full Code (Latest Code Status on [...] 9:49 AM 04/04/2020 3:57 PM Care Teams Deep Fat Fry Cook Relationship Specialty Start Date End Date Jayla Phoenix MD [address] [place] [address] PCP - General 08/07/17
--- OUTSIDE RECORDS SUMMARY | 2025-03-08 09:50 | XMS_ITS | Encounter Summary ---
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 Endoscopy [address] [place] [address] Corbin Duque MD [address] [place] [address] 05/28/2025 8:00 AM CDT - 05/28/2025 9:[address] [facility] Endoscopy [address] [address] Corbin Duque MD [address] [place], [place] [id number] COLONOSCOPY with NBI Scheduled Procedures Name Priority [...] on filedocumented in this encounter Care Teams School Inspector Relationship Specialty Start Date End Date Jayla Phoenix MD [address] [place] [address] PCP - General 08/07/17 documented as of this encounter
--- OUTSIDE RECORDS SUMMARY | 2025-03-08 09:50 | XMS_ITS | Encounter Summary ---
Author Organization [facility] Healthcare Address [address] [place] [address] Care Team Providers Care Animal Trainer Supervisor Name Role Phone Jayla Phoenix MD Primary Care Provider [phone] Encounter Details Date Type Department Care Team (Late st Contact Info) Description 09/16/2020 Telephone [facility] Imaging [address] [address] [place] [address] [place], [place] Social History Tobacco Use Types Packs/Day Years Used Date Smoking Tobacco: Former Cigarettes 1.5 9 1 994 - 2002 Smokeless Tobacco: Never Alcohol Use Standard Drinks/Week Comments Not Currently 0 (1 standard drink = 0.6 oz pur e alcohol) Sex and Gender Information Value Date Recorded Sex Assigned at Not on file Legal Sex 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 Gender Identity Male 02/04/2019 10:52 AM CDT Sexual Orientation Straight 02/04/2019 10 :52 AM CDT documented as of this encounter Plan of Treatment Upcoming Encounters Date Type Department Care Team (Latest Contact Info) Description 05/28/2025 8:00 AM CDT Hospital Encounter [facility] Endoscopy [address] [address] [place]SREJI [address] Corbin Duque MD [address] [place] [address] 05/28/2025 8:00 AM CDT - 05/28/2025 9:00 AM CDT Surgery [facility] Endoscopy [address] [place] [address] Corbin Duque MD [address] [place] [address] COLONOSCOPY with NBI Scheduled Procedures Name Priority Associated Diagnoses Date/Ti me COLONOSCOPY Crohn's disease of small and large intestines with complication (HCC) 05/28/2025 8:00 AM CDT documented as of this encounter Visit Diagnoses Not on filedocumented in this encounter Care Teams Animal Trainer Supervisor Relationship Specialty Start Date End Date Jayla Phoenix MD [address] [place] [address] PCP - General 08/07/17 documented as of this encounter
--- OUTSIDE RECORDS SUMMARY | 2025-03-08 09:50 | XMS_ITS | Encounter Summary ---
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 Gender Identity Male 02/04/2019 10:52 AM CDT Sexual Orientation Straight 02/04/2019 10 :52 AM CDT documented as of this encounter Plan of Treatment Upcoming Encounters Date Type Department Care Team (Latest Contact Info) Description 05/28/2025 8:00 AM CDT Hospital Encounter [facility] Endoscopy [address] [place] [address] Corbin Duque MD [address] [place] [address] 05/28/2025 8:00 AM CDT - 05/28/2025 9:00 AM CDT Surgery [facility] Endoscopy [address] [place] [address] Corbin Duque MD [address] [place] [address] COLONOSCOPY with NBI Scheduled Procedures Name Priority Associated Diagnoses Date/Ti me COLONOSCOPY Crohn's disease of small and large intestines with complication (HCC) 05/28/2025 8:00 AM CDT documented as of this encounter Procedures Procedure Name Priority Date/Time Associated Diagnosis Comments CARDIOLOGY DOCUMENT SCAN 08/16/2024 documented in this encounter Results * Cardiology Document Scan (08/16/2024) Anatomical Region Laterality Modality Other us Provider Scanning CV CARDIAC SERVICES PROCEDURES Edited Result - Final documented in this encounter Visit Diagnoses Not on filedocumented in this encounter Care Teams Project Officer Relationship Specialty Start Date End Date Jayla Phoenix MD [address] [place] [address] PCP - General 08/07/17 documented as of this encounter
--- OUTSIDE RECORDS SUMMARY | 2025-03-08 09:50 | XMS_ITS | Clinical Summary ---
Author Organization [facility] Address [address] [place] [address] Care Team Providers Care Watch Crystal Molder Name Role Phone Jayla Phoenix MD Primary Care Provider [phone] Allergies Active Allergy Reactions Criticality Noted Date Comments Iodinated Contrast Media Rash Medium 01/23/2019 Medications losartan-hydroch lorothiazide (HYZAAR) 100-25 mg per tabletIndication s:hypertension Take 1 tablet by mouth nightly 02/24/20 19 Active multivitamin capsuleIndicatio ns:Vitamin Deficiency Prevention Take 1 capsule by mouth human resources generalist before breakfast Active cyanocobalamin, vitamin B-12, 5,000 mcg tablet, sublingualIndica tions:Prevention of Vitamin B12 Deficiency Place 1 tablet under the tongue human resources generalist before breakfast Active traZODone (DESYREL) 100 mg [...] (12/21/2020): Added automatically from request for surgery [id number] Hyperoxaluria 12/21/2020 Benign prostatic hyperplasia with urinary [...] (04/05/2020): Added automatically from request for surgery [id number] 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 [...] reasonable. Assessment & Plan (07/21/2024 11:14 AM BANK CREDIT CARD COLLECTION CLERK): CD doing well. Noted on stelara q [...] now. Assessment & Plan (09/19/2022 9:40 AM BANK CREDIT CARD COLLECTION CLERK): Long standing CD doing well with one [...] (02/02/2019): Added automatically from request for surgery [id number] Cervical radiculopathy 02/02/2019 Overview (02/02/2019): Added automatically from request for surgery [id number] Fusion of spine of cervical region 02/02/2019 Overview (02/02/2019): Added automatically from request for surgery [id number] Cervical radiculopathy at C7 01/23/2019 Cervical pain (neck) 09/03/2017 Encounters Date Type Department Care Team Description 03/03/2025 11:00 AM CDT Office Visit [facility] ([facility]) - [facility] Urology [address] [facility] 11th [place] [address] [place] [address] Tyler Phan MD Nephrolithiasis (Primary Dx); Benign prostatic hyperplasia with urinary frequency 03/03/2025 9:45 AM CDT - 03/03/2025 11:59 PM CDT Hospital Encounter [facility] [address] [place] [address] Nephrolithiasis Discharge Disposition: Discharge to home or self care 02/25/2025 Orders Only [facility] Gastroenterology [address] [facility] 12th [place] [address] [place] [address] Corbin Duque MD High risk medications (not anticoagulants) long-term use (Primary Dx); Crohn's disease of both small and large intestine with other complication (HCC) 01/29/2025 Results Follow-Up [facility] Cardiology [address] [facility] Medical Office Building [address] [place] [address] Huang Simon MD Stress Treadmill Test 01/21/2025 Orders Only [facility] Gastroenterology [address] [place] [address] [place] [address] Corbin Duque MD Crohn's disease of small and large intestines with complication (HCC) (Primary Dx) 01/19/2025 10:00 AM CDT Telemedicine [facility] Gastroenterology [address] [facility] Medical Office Building [address] [place] [address] Corbin Duque MD Crohn's disease of small and large intestines with complication (HCC) (Primary Dx); High risk medications (not anticoagulants) long-term use 01/18/2025 9:15 AM CDT Ancillary Procedure [facility] [address] [facility] [address] [place] [address] Chest pain, unspecified type; Abnormal EKG 12/08/2024 Results Follow-Up [facility] Cardiology [facility] Building [address] [place] [address] Katlyn Owens RN CTA Chest W Contrast 12/07/2024 1:50 PM CDT - 12/07/2024 11:59 PM CDT Hospital Encounter [facility] Imaging [address] [place] [address] Abnormality of ascending aorta Discharge Disposition: Discharge to home or self care from Last 3 Months Immunizations Immunization Administration Dates Next Due Influenza, [...] Comments Gastric reflux HTN (hypertension) Crohn's disease (HCC) 2000 DDD (degenerative disc disease), cervical [...] on file Legal 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 Gender Identity Male 02/04/2019 10:52 AM CDT Sexual Orientation Straight 02/04/2019 10 :52 AM CDT Obstetrics History Last Filed Vital Signs Vital Sign Reading Time Taken Comments Blood Pressure 120/82 10/19/2024 1:38 PM BANK CREDIT CARD COLLECTION CLERK Pulse 84 10/19/2024 1:38 PM BANK CREDIT CARD COLLECTION CLERK Temperature 36.3 C (97.3 F) 05/03/2023 9:55 AM CDT Respiratory Rate 27 05/03/2023 11:40 AM CDT Oxygen Saturation 97% 10/19/2024 1:38 PM BANK CREDIT CARD COLLECTION CLERK Inhaled Oxygen Concentration - - Weight 114.8 kg (253 lb) 10/19/2024 1:38 PM BANK CREDIT CARD COLLECTION CLERK Height 188 cm (6' 2) 10/09/2023 10:07 AM BANK CREDIT CARD COLLECTION CLERK Body Mass Index 32.48 10/09/2023 10:07 AM BANK CREDIT CARD COLLECTION CLERK Plan of Treatment Upcoming Encounters Date Type Department Care Team (Latest Contact Info) Description 05/28/2025 8:00 AM CDT Hospital Encounter [facility] Endoscopy [address] [address] [address] Corbin Duque MD [address] [place] [address] 05/28/2025 8:00 AM CDT - 05/28/2025 9:00 AM CDT Surgery [facility] Endoscopy [address] [place] [address] Corbin Duque MD [address] [place], [place] [address] COLONOSCOPY with NBI Scheduled Procedures Name Priority Associated Diagnoses Date/Ti me COLONOSCOPY Crohn's disease of small and large intestines with complication (HCC) 05/28/2025 8:00 AM CDT Health Maintenance Due Date Last Done Comments Depression Screening 1970 Hepatitis C Screening 1970 Prostate Cancer Screening-PSA 1972 Hepatitis B Screening 1990 Regular Well Visit/Exam 18-64 1990 Zoster Vaccine (1 of 2) 2022 DTaP/Tdap/Td Vaccine (2 - Td or Tdap) 08/26/2023 08/26/2013 Influenza Vaccine (#1) 2025 , 05/22/2017 Colon Cancer Screening-Colonoscopy 05/03/2033 05/03/2023, 02/06/2021, 04/04/2020 Pneumococcal vaccine <65 Aged Out No longer eligible based on patient's age to complete this topic Medical Devices Implanted Type Area Build And Deployment Engineer Device Identifier Shelf Expiration Date Model / Serial / Lot Titanium Plates N/A: Neck Musculoskeletal Transplant [id number] Frozen Spine 7d Lordotic Trapezoid Spacer Allograft - [id number] - [id number] Implanted:Qty: 1 on 02/16/2019 by Gabriel Horner MD at [facility] N/A: Spine Cervical Musculoskeletal Transplant 11/13/2022 [id number] / [id number] / [employer] [id number] Maxan 10mm Level 1 Spine Cervical Anterior Plate Bone Titanium - [id number] Implanted:Qty: 1 on 02/16/2019 by Gabriel Horner MD at [facility] N/A: Spine Cervical [employer] [id number] / / [employer] [id number] 4mm 16mm Fix Screw Bone - [id number] Implanted:Qty: 4 on 02/16/2019 by Gabriel Horner MD at [facility] N/A: Spine Cervical [employer] [id number] / / Procedures Procedure Name Priority [...] by: Miguel Macias M.D. Hipolito Reyes MD IMG US PROCEDURES F inal Result * Stress Treadmill Test (01/18/2025 9:46 AM CDT) Anatomical Region Laterality Modality Electrocardiogra phy 01/18/2025 9:15 AM CDT Narrative 01/18/2025 10:54 AM CDT [facility] Cardiac Diagnostic Lab [address] , [address] [place] [address] EXERCISE STRESS Patient Name: ZOEY JOSEPH M : 1970 (54y 6m) Gender: M Study Date: 01/18/2025 09:15:00 AM Ht(Inch): 74 Wt(Lb): 253 BSA: 2.45 Tech: Location: [facility] Order Provider: HUANG SIMON BMI: 32.48 Ref [...] Procedure Note Chris Logan MD - 01/18/2025 [facility] Cardiac Diagnostic Lab [address], [address] [place] [address] EXERCISE STRESS Patient Name: ZOEY JOSEPH M : 1970 (54y 6m) Gender: M Study Date: 01/18/2025 09:15:00 AM Ht(Inch): 74 Wt(Lb): 253 BSA: 2.45 Tech: Location: [facility] Order Provider: HUANG SIMON BMI: 32.48 Ref Provider: HUANG ISMON PROCEDURES: Stress Report: Cardiovascular Treadmill Stress Exam. [...] the 3-D workstation and sent to the PACS archival system. COMPARISON: None FINDINGS: No evidence [...] the 3-D workstation and sent to the PACS archival system. COMPARISON: None FINDINGS: No evidence [...] Electronically signed by: Aric Koch MD, PHD us Huang Simon MD IM CT PROCEDURES Final Resu lt * POC ISTAT (12/07/2024 2:09 PM CDT) Creatinine, POC, bld 1.3 0.6 - 1.3 mg/dL POC Device Number [id number] [facility] POC Performer [id number] R[facility]AN [facility] Blood 12/07/2024 2:09 PM CDT 12/07/2024 2:09 PM CDT us Huang Siomn MD LAB BLOOD ORDERABLES Final R esult [facility] [address] [facility]. Department [place] [address] * COLONOSCOPY (05/03/2023 10:45 AM CDT) Anatomical Region Laterality Modality Other Narrative Procedure Note Corbin Duque MD - 05/03/2023 10:45 AM CDT ENDOSCOPY LAB Patient Name: Zoey Joseph Procedure Date: 05/03/2023 10:45 AM Date of : 1970 Admit Type: Outpatient Age: 52 Gender: Male Attending MD: Corbin Duque M.D. Room: [facility] ENDOSCOPY ROOM 01 Note Status: Finalized [...] The scope was passed under direct vision.The [id number] was introduced through the anusand advanced to [...] MD Corbin Duque M.D. 05/03/2023 11:23:58 AM aMrli Guzman M.D. Number of Addenda: 0 Note Initiated On: 05/03/2023 10:45 AM Corbin Duque MD ENDOSCOPY PROCEDURES Final Result from Last 3 Months or Most Recently Relevant to Health Maintenance Insurance [facility] Member Subscriber Plan / Payer (Ef fective 2019-Present) Name:Zoey Joseph Relation to Subscriber:Self Name:Zoey Joseph Payer ID:[id number] (NAIC) Type: ALLIANCE [address] [facility] Advance Directives For more information, please contact: [phone] * Full Code (Latest Code Status on [...] 9:49 AM 04/04/2020 3:57 PM Care Teams Watch Crystal Molder Relationship Specialty Start Date End Date Jayla Phoenix MD [address] [place] [address] [facility] - General 08/07/17
[2025-03-08 09:57] LABS: Hematocrit 41.5 % (40.0-54.0); Hemoglobin 14.0 g/dL (14.0-18.0); Immature Granulocyte Percent A 0.2 % (0.0-0.0); Lymphocytes Absolute Auto 1.34 K/mm3 (1.10-4.50); Mean Corpuscular HGB Conc 33.7 g/dL (32-36); Mean Corpuscular Hemoglobin 29.4 pg (27.0-31.0); Mean Corpuscular Volume 87.2 fL (78.0-102.0); Nucleated Red Blood Cells Absolute Auto 0.00 K/mm3 (0.00-0.00); Nucleated Red Blood Cells Perc 0.0 % (0-0.0); Platelet Count Result 269 K/mm3 (150-420); Red Blood Count 4.76 M/mm3 (4.70-6.10); White Blood Count 5.6 K/mm3 (4.8-10.8)
[2025-03-08 10:49] LABS: Alanine Aminotransferase 53 U/L (6-50); Albumin Level 3.9 g/dL (3.5-5.1); Alkaline Phosphatase 71 U/L (38-126); Anion Gap 5 mmol/L (4-12); Aspartate Amino Transferase 40 U/L (17-59); Bilirubin,Total 0.4 mg/dL (0.2-1.3); Blood Urea Nitrogen 25 mg/dL (9-20); CRP < 0.5 mg/dL (<1.0); Calcium 9.1 mg/dL (8.4-10.2); Carbon Dioxide 26 mmol/L (22-30); Chloride 105 mmol/L (98-107); Estimated Glomerular Filt Rate > 60; Glucose 133 mg/dL (65-110); Osmolality Calculated 288 mOsm/kg (285-295); Potassium 4.4 mmol/L (3.4-5.0); Sodium 136 mmol/L (137-145); Total Protein 6.4 g/dL (6.3-8.2)
== END 2025-03-08 09:46 | disposition home or self-care (01) ==
LOC: CHSLAB 09:47
PROVIDERS: PCP Internal Medicine; Visit Provider Internal Medicine Gastroenterology
DX: Z79.899 Other long term (current) drug therapy (principal); K50.818 Crohn's disease of both small and large intestine with other complication
CPT/HCPCS: 36415; 80053; 85025; 86140

== ENCOUNTER 2025-05-03 10:13 | Outpatient (CLI) | payer OTHER, SELFPAY ==
[2025-05-03 10:26] LABS: Hematocrit 40.4 % (40.0-54.0); Hemoglobin 13.7 g/dL (14.0-18.0); Immature Granulocyte Percent A 0.3 % (0.0-0.0); Lymphocytes Absolute Auto 1.69 K/mm3 (1.10-4.50); Mean Corpuscular HGB Conc 33.9 g/dL (32-36); Mean Corpuscular Hemoglobin 29.3 pg (27.0-31.0); Mean Corpuscular Volume 86.3 fL (78.0-102.0); Nucleated Red Blood Cells Absolute Auto 0.00 K/mm3 (0.00-0.00); Nucleated Red Blood Cells Perc 0.0 % (0-0.0); Platelet Count Result 275 K/mm3 (150-420); Red Blood Count 4.68 M/mm3 (4.70-6.10); White Blood Count 6.2 K/mm3 (4.8-10.8)
[2025-05-03 10:29] LABS: Add Urine Microscopic? NO; Appearance Urine Clear (Clear); Glucose Urine UA Negative (Negative); Leukocyte Esterase Ur Negative LEU/UL (Negative); Nitrate Urine Negative (Negative); Specific Grav Ur 1.020 (1.010-1.020)
[2025-05-03 10:36] LABS: Hemoglobin A1C 5.9 % (<5.7)
[2025-05-03 10:45] LABS: Alanine Aminotransferase 41 U/L (6-50); Albumin Level 4.0 g/dL (3.5-5.1); Alkaline Phosphatase 68 U/L (38-126); Anion Gap 9 mmol/L (4-12); Aspartate Amino Transferase 36 U/L (17-59); Bilirubin,Total 0.5 mg/dL (0.2-1.3); Blood Urea Nitrogen 25 mg/dL (9-20); Calcium 9.4 mg/dL (8.4-10.2); Carbon Dioxide 26 mmol/L (22-30); Chloride 106 mmol/L (98-107); Cholesterol 170 mg/dL (0-200); Creatine Kinase 127 U/L (55-170); Estimated Glomerular Filt Rate > 60; Glucose 107 mg/dL (65-110); HDL Direct 50 mg/dL; Osmolality Calculated 296 mOsm/kg (285-295); Potassium 4.6 mmol/L (3.4-5.0); Sodium 141 mmol/L (137-145); Total Protein 6.9 g/dL (6.3-8.2); Triglycerides 285 mg/dL (<150)
[2025-05-03 11:16] LABS: Prostate Specific Antigen 0.5 ng/mL (< OR = 4.0)
--- OUTSIDE RECORDS SUMMARY | 2025-05-03 11:33 | XMS_ITS | Encounter Summary ---
Author Organization 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 Gender Identity Male 02/04/2019 10:52 AM CDT Sexual Orientation Straight 02/04/2019 10 :52 AM CDT documented as of this encounter Plan of Treatment Upcoming Encounters Date Type Department Care Team (Latest Contact Info) Description 05/28/2025 8:00 AM CDT Hospital Encounter [facility] Endoscopy [address] [address] [address] Corbin Duque MD [address] [place] [address] 05/28/2025 8:00 AM CDT - 05/28/2025 9:00 AM CDT Surgery [facility] Endoscopy [address] [place] [address] Corbin Duque MD [address] [place], [place] [address] COLONOSCOPY with NBI Scheduled Procedures Name Priority [...] on filedocumented in this encounter Care Teams Stripper Shovel Operator Relationship Specialty Start Date End Date Jayla Phoenix MD [address] [place] [address] PCP - General 08/07/17 documented as of this encounter
--- OUTSIDE RECORDS SUMMARY | 2025-05-03 11:33 | XMS_ITS | Encounter Summary ---
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 Gender Identity Male 02/04/2019 10:52 AM CDT Sexual Orientation Straight 02/04/2019 10 :52 AM CDT documented as of this encounter Plan of Treatment Upcoming Encounters Date Type Department Care Team (Latest Contact Info) Description 05/28/2025 8:00 AM CDT Hospital Encounter [facility] Endoscopy [address] [address] [place] [address] Corbin Duque MD [address] [place] [address] 05/28/2025 8:00 AM CDT - 05/28/2025 9:00 AM CDT Surgery [facility] Endoscopy [address] [place] [address] Corbin Duque MD [address] [place] [address] COLONOSCOPY with NBI Scheduled Procedures Name Priority [...] on filedocumented in this encounter Care Teams Printed Circuit Board Reworker Relationship Specialty Start Date End Date Jayla Phoenix MD [address] [place] [address] PCP - General 08/07/17 documented as of this encounter
--- OUTSIDE RECORDS SUMMARY | 2025-05-03 11:33 | XMS_ITS | Encounter Summary ---
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 Gender Identity Male 02/04/2019 10:52 AM CDT Sexual Orientation Straight 02/04/2019 10 :52 AM CDT documented as of this encounter Plan of Treatment Upcoming Encounters Date Type Department Care Team (Latest Contact Info) Description 05/28/2025 8:00 AM CDT Hospital Encounter [facility] Endoscopy [address] [place] [address] Corbin Duque MD [address] [place] [address] 05/28/2025 8:00 AM CDT - 05/28/2025 9:00 AM CDT Surgery [facility] Endoscopy [address] [place] [address] Corbin Duque MD [address] [place] [address] COLONOSCOPY with NBI Scheduled Procedures Name Priority [...] on filedocumented in this encounter Care Teams Professor Criminal Justice Relationship Specialty Start Date End Date Jayla Phoenix MD [address] [place] [address] PCP - General 08/07/17 documented as of this encounter
--- OUTSIDE RECORDS SUMMARY | 2025-05-03 11:33 | XMS_ITS | Encounter Summary ---
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 Gender Identity Male 02/04/2019 10:52 AM CDT Sexual Orientation Straight 02/04/2019 10 :52 AM CDT documented as of this encounter Plan of Treatment Upcoming Encounters Date Type Department Care Team (Latest Contact Info) Description 05/28/2025 8:00 AM CDT Hospital Encounter [facility] Endoscopy [address] [address] [address] Corbin Duque MD [address] [place] [address] 05/28/2025 8:00 AM CDT - 05/28/2025 9:00 AM CDT Surgery [facility] Endoscopy [address] [place] [address] Corbin Duque MD [address] [place], [place] [address] COLONOSCOPY with NBI Scheduled Procedures Name Priority [...] on filedocumented in this encounter Care Teams Roll Coating Machine Operator Relationship Specialty Start Date End Date Jayla Phoenix MD [address] [place] [address] PCP - General 08/07/17 documented as of this encounter
--- OUTSIDE RECORDS SUMMARY | 2025-05-03 11:33 | XMS_ITS | Encounter Summary ---
Author Organization [facility] Healthcare Address [address] [place] [address] Care Team Providers Care Hoof And Shoe Inspector Name Role Phone Jayla Phoenix MD Primary Care Provider Encounter Details Date Type Department Care Team (Late st Contact Info) Description 09/16/2020 Telephone [facility] Imaging [address] [address] [place] [address] [place], [place] Social History Tobacco Use Types Packs/Day Years Used Date Smoking Tobacco: Former Cigarettes 1.5 9 1 994 - 2002 Smokeless Tobacco: Never Alcohol Use Standard Drinks/Week Comments Not Currently 0 (1 standard drink = 0.6 oz pur e alcohol) Sex and Gender Information Value Date Recorded Sex Assigned at Not on file 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 Gender Identity Male 02/04/2019 10:52 AM CDT Sexual Orientation Straight 02/04/2019 10 :52 AM CDT documented as of this encounter Plan of Treatment Upcoming Encounters Date Type Department Care Team (Latest Contact Info) Description 05/28/2025 8:00 AM CDT Hospital Encounter [facility] Endoscopy [address] [address] [place] [address] Corbin Duque MD [address] [place] [address] 05/28/2025 8:00 AM CDT - 05/28/2025 9:00 AM CDT Surgery [facility] Endoscopy [address] [place] [address] Corbin Duque MD [address] [place] [address] COLONOSCOPY with NBI Scheduled Procedures Name Priority Associated Diagnoses Date/Ti me COLONOSCOPY Crohn's disease of small and large intestines with complication (HCC) 05/28/2025 8:00 AM CDT documented as of this encounter Visit Diagnoses Not on filedocumented in this encounter Care Teams Hoof And Shoe Inspector Relationship Specialty Start Date End Date Jayla Phoenix MD [address] [place] [address] PCP - General 08/07/17 documented as of this encounter
--- OUTSIDE RECORDS SUMMARY | 2025-05-03 11:33 | XMS_ITS | Encounter Summary ---
Author Organization [facility] Healthcare Address [address] [place] [address] Care Team Providers Care Director Of Recruitment Name Role Phone Jayla Phoenix MD Primary Care Provider Encounter Details Date Type Department Care Team (Late Contact Info) Description 12/16/[address] 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 Endoscopy [address] [address] [place] [address] Corbin Duque MD [address] [place] [address] 05/28/2025 8:00 AM CDT - 05/28/2025 9:[address] [facility] Endoscopy [address] [place] [address] Corbin Duque MD [address] [place] [address] COLONOSCOPY with NBI Scheduled Procedures Name Priority Associated Diagnoses Date/Ti me COLONOSCOPY Crohn's disease of small and large intestines with complication (HCC) 05/28/2025 8:00 AM CDT documented as of this encounter Visit Diagnoses Not on filedocumented in this encounter Care Teams Director Of Recruitment Relationship Specialty Start Date End Date Jayla Phoenix MD [address] [place] [address] PCP - General 08/07/17 documented as of this encounter
--- OUTSIDE RECORDS SUMMARY | 2025-05-03 11:33 | XMS_ITS | Encounter Summary ---
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 Gender Identity Male 02/04/2019 10:52 AM CDT Sexual Orientation Straight 02/04/2019 10 :52 AM CDT documented as of this encounter Plan of Treatment Upcoming Encounters Date Type Department Care Team (Latest Contact Info) Description 05/28/2025 8:00 AM CDT Hospital Encounter [facility] Endoscopy [id number] [address] [address] Corbin Duque MD [address] [place] [address] 05/28/2025 8:00 AM CDT - 05/28/2025 9:00 AM CDT Surgery [facility] Endoscopy [address] [place] [address] Corbin Duque MD [address] [place], [place] [id number] COLONOSCOPY with NBI Scheduled Procedures Name Priority [...] on filedocumented in this encounter Care Teams Contact Center Manager Relationship Specialty Start Date End Date Jayla Phoenix MD [address] [place] [address] PCP - General 08/07/17 documented as of this encounter
--- OUTSIDE RECORDS SUMMARY | 2025-05-03 11:33 | XMS_ITS | Clinical Summary ---
Author Organization [facility] Address [address] [place] [address] Care Team Providers Care Vortex Operator Name Role Phone Jayla Phoenix MD Primary Care Provider [phone] Allergies Active Allergy Reactions Criticality Noted Date Comments Iodinated Contrast Media Rash Medium 01/23/2019 Medications losartan-hydroch lorothiazide (HYZAAR) 100-25 mg per tabletIndication s:hypertension Take 1 tablet by mouth nightly 02/24/20 19 Active multivitamin capsuleIndicatio ns:Vitamin Deficiency Prevention Take 1 capsule by mouth plant electrician before breakfast Active cyanocobalamin, vitamin B-12, 5,000 mcg tablet, sublingualIndica tions:Prevention of Vitamin B12 Deficiency Place 1 tablet under the tongue plant electrician before breakfast Active traZODone (DESYREL) 100 mg [...] DAY 360 tablet 1 12/04/19 25 Active ustekinumab (Stelara) 90 mg/mL syringeIndicatio ns:Crohn's disease of small and large intestines with complication (HCC) Inject 1 mL (90 mg total) under the skin every 6 (six) weeks NEXT LABS DUE AUG 2025 1 mL 3 03/10/20 25 Active tamsulosin (FLOMAX) 0.4 mg extended release capsuleIndicatio ns:Nephrolithias is TAKE 2 CAPSULES BY MOUTH NIGHTLY 180 capsule 3 04/29/20 25 Active tamsulosin (FLOMAX) 0.4 mg extended release capsuleIndicatio ns:Nephrolithias is Take 2 capsules (0.8 mg total) by mouth nightly 180 capsule 01/30/20 25 025 Discontinued Hospital, Clinic, or Other [...] (12/21/2020): Added automatically from request for surgery [id number] Hyperoxaluria 12/21/2020 Benign prostatic hyperplasia with urinary [...] (04/05/2020): Added automatically from request for surgery [id number] Crohn's disease of both smal l and large intestine with fistula 03/03/2020 Overview (03/03/2020): Added automatically from request for surgery [id number] Crohn's disease of both smal l and [...] reasonable. Assessment & Plan (07/21/2024 11:14 AM QUALITY AUDIT REPRESENTATIVE): CD doing well. Noted on stelara q [...] now. Assessment & Plan (09/19/2022 9:40 AM QUALITY AUDIT REPRESENTATIVE): Long standing CD doing well with one [...] (02/02/2019): Added automatically from request for surgery [id number] Cervical radiculopathy 02/02/2019 Overview (02/02/2019): Added automatically from request for surgery [id number] Fusion of spine of cervical region 02/02/2019 Overview (02/02/2019): Added automatically from request for surgery [id number] Cervical radiculopathy at C7 01/23/2019 Cervical pain (neck) 09/03/2017 Encounters Date Type Department Care Team Description 03/29/2025 Telephone [facility] [address] [place] [phone] Janki Dalton RPh 03/16/2025 Documentation [facility] Gastroenterology [address] [place] [phone] Michelle Hazel fluxer Results 03/08/2025 Orders Only [facility] Scanning, Provider 03/03/2025 11:00 AM CDT Office Visit [facility] - [facility] Medicine Urology [address] [place] [address] for [facility] 11th [place] [address] [place] [phone] Tyler Phan MD Nephrolithiasis (Primary Dx); Benign prostatic hyperplasia with urinary frequency 03/03/2025 9:45 AM CDT - 03/03/2025 11:59 PM CDT Hospital Encounter [facility] [address] [place] [address] Nephrolithiasis Discharge Disposition: Discharge to home or self care 02/25/2025 Orders Only [facility] [address] [facility] [address] [place] [address] [place] [address] Corbin Duque MD High risk medications (not anticoagulants) long-term use (Primary Dx); Crohn's disease of both small and large intestine with other complication (HCC) from Last 3 Months Immunizations Immunization Administration [...] file Legal Sex Male 7:18 PM QUALITY AUDIT REPRESENTATIVE Gender Identity Male 02/04/2019 10:52 AM CDT Sexual Orientation Straight 02/04/2019 10 :52 AM CDT Obstetrics History Last Filed Vital Signs Vital Sign Reading Time Taken Comments Blood Pressure 120/82 10/19/2024 1:38 PM QUALITY AUDIT REPRESENTATIVE Pulse 84 10/19/2024 1:38 PM QUALITY AUDIT REPRESENTATIVE Temperature 36.3 C (97.3 F) 05/03/2023 9:55 AM CDT Respiratory Rate 27 05/03/2023 11:40 AM CDT Oxygen Saturation 97% 10/19/2024 1:38 PM QUALITY AUDIT REPRESENTATIVE Inhaled Oxygen Concentration - - Weight 114.8 kg (253 lb) 10/19/2024 1:38 PM QUALITY AUDIT REPRESENTATIVE Height 188 cm (6' 2) 10/09/2023 10:07 AM QUALITY AUDIT REPRESENTATIVE Body Mass Index 32.48 10/09/2023 10:07 AM QUALITY AUDIT REPRESENTATIVE Plan of Treatment Upcoming Encounters Date Type Department Care Team (Latest Contact Info) Description 05/28/2025 8:00 AM CDT Hospital Encounter [facility] Endoscopy [address] [address] [address] Corbin Duque MD [address] [facility] [place] [address] 05/28/2025 8:00 AM CDT - 05/28/2025 9:[address] [facility] Endoscopy [address] [address] [address] Corbin Duque MD [address] [address] COLONOSCOPY with NBI Scheduled Procedures Name Priority [...] Tdap) 08/26/2023 08/26/2013 Influenza Vaccine (#1) 2025 9, 05/22/2017 Colon Cancer Screening-Colonoscopy 05/03/2033 05/03/2023, 02/06/2021, 04/04/2020 Pneumococcal vaccine <65 Aged Out No longer eligible based on patient's age to complete this topic Medical Devices Implanted Type Area Extractor Loader And Unloader Device Identifier Shelf Expiration Date Model / Serial / Lot Titanium Plates N/A: Neck Musculoskeletal Transplant [id number] Frozen Spine 7d Lordotic Trapezoid Spacer Allograft - [id number] - [id number] Implanted:Qty: 1 on 02/16/2019 by Gabriel Horner MD at [facility] N/A: Spine Cervical Musculoskeletal Transplant 11/13/2022 [id number] / [id number] / [employer] [id number] Maxan 10mm Level 1 Spine Cervical Anterior Plate Bone Titanium - [id number] Implanted:Qty: 1 on 02/16/2019 by Gabriel Horner MD at [facility] N/A: Spine Cervical [employer] [id number] / / [employer] [id number] 4mm 16mm Fix Screw Bone - [id number] Implanted:Qty: 4 on 02/16/2019 by Gabriel Horner MD at [facility] N/A: Spine Cervical [employer] [id number] / / Procedures Procedure Name Priority Date/Time Associated Diagnosis Comments SCAN - LABS 03/08/2025 US KIDNEY COMPLETE Schedule Routine, Read Routine (OP Routine) 03/03/2025 10:45 AM CDT Nephrolithiasis COLONOSCOPY 05/03/2023 10:45 AM CDT from Last 3 Months or Most Recently Relevant to Health Maintenance Results * SCAN - LABS (03/08/2025) us Provider Scanning Final Result * US Kidney Complete (03/03/2025 10:45 AM [...] it. Electronically signed by: Miguel Macias M.D. [facility] Libia Reyes MD [facility] PROCEDURES F inal Result * COLONOSCOPY (05/03/2023 10:45 AM CDT) Anatomical Region Laterality Modality Other Narrative Procedure Note Corbin Duque MD - 05/03/2023 10:45 AM CDT ENDOSCOPY LAB Patient Name: Zoey Joseph Procedure Date: 05/03/2023 10:45 AM Date of : 1970 Admit Type: Outpatient Age: 52 Gender: Male Attending MD: Corbin Duque M.D. Room: [facility] ENDOSCOPY ROOM 01 Note Status: Finalized [...] The scope was passed under direct vision.The [id number] was introduced through the anusand advanced to [...] Most Recently Relevant to Health Maintenance Insurance [place] [facility] Advance Directives For more information, please contact: [phone] * Full Code (Latest Code Status on [...] 9:49 AM 04/04/2020 3:57 PM Care Teams Vortex Operator Relationship Specialty Start Date End Date Jayla Phoenix MD [address] [place] [address] PCP - General 08/07/17
--- OUTSIDE RECORDS SUMMARY | 2025-05-03 11:33 | XMS_ITS | Encounter Summary ---
Author Organization [facility] Address [address] [place] [address] Phone Care Team Providers Care Pre Sales Systems Engineer Name Role Phone Jayla Phoenix MD Primary Care Provider [phone] Encounter Details Date Type Department Care Team [...] on file Legal Sex Male 7:18 PM ORNAMENTER HAND Gender Identity Male 02/04/2019 10:52 AM CDT Sexual Orientation Straight 02/04/2019 10 :52 AM CDT documented as of this encounter Plan of Treatment Upcoming Encounters Date Type Department Care Team (Latest Contact Info) Description 05/28/2025 8:00 AM CDT Hospital Encounter [facility] Endoscopy [address] [place] [address] Corbin Duque MD [address] [place] [address] 05/28/2025 8:00 AM CDT - 05/28/2025 9:00 AM CDT Surgery [facility] Endoscopy [address] [address] [address] Corbin Duque MD [address] [place], [place] [phone] COLONOSCOPY with NBI Scheduled Procedures Name Priority [...] filedocumented in this encounter Care Teams Pre Sales Systems Engineer Relationship Specialty Start Date End Date Jayla Phoenix MD [address] [place] [address] PCP - General 08/07/17 documented as of this encounter
== END 2025-05-03 10:14 | disposition home or self-care (01) ==
LOC: CHSLAB 10:15
PROVIDERS: PCP Internal Medicine; Visit Provider Internal Medicine
DX: I10 Essential (primary) hypertension (principal); E78.2 Mixed hyperlipidemia; E11.65 Type 2 diabetes mellitus with hyperglycemia; N39.0 Urinary tract infection, site not specified; Z12.5 Encounter for screening for malignant neoplasm of prostate
CPT/HCPCS: 36415; 80053; 80061; 81003; 82550; 83036; 84153; 85025; G0103